=== PATIENT | male | born 1965 | race Hispanic/Latino ===

== ENCOUNTER 2016-08-10 11:18 | Emergency (ER) | payer MEDICARE, OTHER ==
--- NOTE | 2016-08-10 13:02 | C.PDOC ---
History Of Present Illness 51 Y/O MALE PRESENTS TO ED WHO REPORTS HE NOTICED HIS "MOUTH WAS CROOKED" YESTERDAY. PT STATES HE NOTICED WHEN DRINKING SODA. PT NOTES SYMPTOMS STILL PRESENT. DENIES OTHER NOTICEABLE WEAKNESS IN THE FACE. DENIES CHANGES IN SPEECH , NEW EXTREMITY WEAKNESS OR NUMBNESS, HEADACHE, VISUAL CHANGES, OR OTHER COMPLAINTS. Time Seen by Provider: 08/10/16 12:01 Chief Complaint (Nursing): Weakness/Neurological Deficit History Per: Patient History/Exam Limitations: no limitations Onset/Duration Of Symptoms: Days (1) Current Symptoms Are (Timing): Still Present Fall Associated With With Symptoms: No Recent travel outside of the [place]: No Past Medical History Reviewed: Historical Data, Nursing Documentation, Vital Signs Vital Signs: Last Vital Signs Temp 98.3 F 08/10/16 11:31 Pulse 87 08/10/16 12:08 Resp 19 08/10/16 12:08 BP 110/68 08/10/16 12:08 Pulse Ox 96 08/10/16 13:51 - Medical History PMH: Arthritis, Deep Vein Thrombosis, Gastritis, HTN, Hypercholesterolemia, Sleep Apnea - [facility] Procedures CLOSURE SKIN & SUBCUTANEOUS NEC (12/01/12) INJECT STEROID (03/29/14) INJECT/INFUSE NEC (03/29/14) INJECTION INTO JOINT (03/29/14) INSERTION OF INFUSION DEV INTO SUP VENA CAVA, PERC APPROACH (11/15/15) INTRODUCTION OF OTH THERAP SUBST INTO MUSCLE, PERC APPROACH (10/07/15) REPAIR ABDOMINAL WALL, EXTERNAL APPROACH (10/07/15) TRANSFUSE NONAUT FROZEN PLASMA IN PERIPH VEIN, PERC (10/07/15) TRANSFUSE NONAUT RED BLOOD CELLS IN PERIPH VEIN, PERC (10/07/15) Family History: States: Unknown Family Hx - Social History Hx Tobacco Use: No Hx Alcohol Use: No Hx Substance Use: No - Immunization History Hx Tetanus Toxoid Vaccination: No Hx Influenza Vaccination: Yes Hx Pneumococcal Vaccination: Yes Review Of Systems Except As Marked, All Systems Reviewed And Found Negative. Constitutional: Negative for: Fever, Chills Cardiovascular: Negative for: Chest Pain Respiratory: Negative for: Cough, Shortness of Breath Gastrointestinal: Negative for: Nausea, Vomiting, Abdominal Pain Skin: Negative for: Rash Neurological: Positive for: Weakness (LEFT SIDED FACE). Negative for: Headache , Dizziness Physical Exam - Physical Exam Appears: Non-toxic, No Acute Distress Skin: Warm, Dry Head: Atraumatic, Normacephalic Eye(s): bilateral: PERRL, EOMI Oral Mucosa: Moist Neck: Supple Chest: Symmetrical Cardiovascular: Rhythm Regular Respiratory: Normal Breath Sounds, No Rales, No Rhonchi, No Wheezing Gastrointestinal/Abdominal: Soft, No Tenderness Back: Normal Inspection Extremity: Normal ROM, Capillary Refill (< 2 SEC. ) Neurological/Psych: Oriented x3, Normal Speech, Other (MILD-MODERATE LEFT FACIAL WEAKNESS: LIMITED FULL CLOSER OF LEFT EYELID, MILD FLATTENING OF LEFT LOWER FACE. ) ED Course And Treatment O2 Sat by Pulse Oximetry: 96 (RA) Pulse Ox Interpretation: Normal - CT Scan/US CT HEAD Other Rad Studies (CT/US): Read By Radiologist, Radiology Report Reviewed CT/US Interpretation: FINDINGS: HEMORRHAGE: No intracranial hemorrhage. BRAIN : There is no mass, mass effect or abnormal extra-axial fluid collection. Hanna- white matter differentiation is preserved. There is normal density in the larger dural venous sinuses. VENTRICLES: There is mild age advanced global parenchymal volume loss and proportionate enlargement of the ventricles and cortical sulci. CALVARIUM: The skull base and calvarium are normal. PARANASAL SINUSES: There is mild mucosal thickening in the right ethmoid air cells and an old deformity in the right lamina papyracea. The remaining included paranasal sinuses are predominantly clear. MASTOID AIR CELLS: Predominantly clear. OTHER FINDINGS: None. IMPRESSION: No acute intracranial abnormality. If there is a persistent focal neurologic deficit and an ongoing clinical concern for acute infarction, an MRI of the brain without intravenous contrast would be a more sensitive modality for evaluation of hyperacute/acute ischemic infarction. Mild global parenchymal volume loss, slightly advanced for the patient's age. Progress - Re-Evaluation Re-evaluation Note: 08/10/16 13:02 CT HEAD ORDERED. 08/10/16 14:50 EXAM UNCH 08/10/16 14:50 PENDING PMD APPT /419 - Data Reviewed Data Reviewed: Diagnostic imaging, Old records Disposition Counseled Patient/Family Regarding: Studies Performed, Need For Followup, Rx Given - Disposition Referrals: YOUR,PMD [Other] Disposition: HOME/ ROUTINE Disposition Time: 14:50 Condition: GOOD Prescriptions: Valacyclovir HCl [Valtrex] 1,000 mg PO TID #21 tablet predniSONE [Prednisone] 60 mg PO DAILY #15 tab Instructions: Dotson Palsy (ED) - Clinical Impression Clinical Impression: Dotson palsy - Scribe Statement The provider has reviewed the documentation as recorded by the Bk Max Provider Scribe Attestation: All medical record entries made by the Scribe were at my direction and personally dictated by me. I have reviewed the chart and agree that the record accurately reflects my personal performance of the history, physical exam, medical decision making, and the department course for this patient. I have also personally directed, reviewed, and agree with the discharge instructions and disposition.
--- NOTE | 2016-08-10 13:39 | CT ---
PROCEDURE: CT HEAD WITHOUT CONTRAST. HISTORY: Left facial weakness for 1 day COMPARISON: None available. TECHNIQUE: Axial computed tomography images were obtained through the head/brain without intravenous contrast. Radiation dose: Total exam DLP = 87.58 mGy-cm. This CT exam was performed using one or more of the following dose reduction techniques: Automated exposure control, adjustment of the mA and/or kV according to patient size, and/or use of iterative reconstruction technique. FINDINGS: HEMORRHAGE: No intracranial hemorrhage. BRAIN: There is no mass, mass effect or abnormal extra-axial fluid collection. Hanna-white matter differentiation is preserved. There is normal density in the larger dural venous sinuses. VENTRICLES: There is mild age advanced global parenchymal volume loss and proportionate enlargement of the ventricles and cortical sulci. CALVARIUM: The skull base and calvarium are normal. PARANASAL SINUSES: There is mild mucosal thickening in the right ethmoid air cells and an old deformity in the right lamina papyracea. The remaining included paranasal sinuses are predominantly clear. MASTOID AIR CELLS: Predominantly clear. OTHER FINDINGS: None. IMPRESSION: No acute intracranial abnormality. If there is a persistent focal neurologic deficit and an ongoing clinical concern for acute infarction, an MRI of the brain without intravenous contrast would be a more sensitive modality for evaluation of hyperacute/acute ischemic infarction. Mild global parenchymal volume loss, slightly advanced for the patient's age.
[2016-08-10 14:55] VITALS: BP 104/68; PULSE 61; RESP 18; TEMP 97.5
[2016-08-10 15:19] VITALS: O2SAT 98
== END 2016-08-10 15:15 | disposition home or self-care (01) ==
LOC: C.ER 11:18
DX: G51.0 Bell's palsy (principal)

== ENCOUNTER 2016-08-28 17:10 | Inpatient (IN) | payer MEDICARE, OTHER ==
[2016-08-28] MEDS ORDERED: Aztreonam 2 GM in Sodium Chloride 0.9% 100 ML IVPB STA (18:25)
--- NOTE | 2016-08-28 18:40 | C.PDOC ---
History Of Present Illness 51 yr old male with PMHx of GERD, HTN, arthritis and DVT, presents to the ER with complaints of irritation to the groin area for the past 2-3 days. Patient follow up with Dr. Brown. Patient denies fever, chills, chest pain, SOB, nausea , vomiting, abdominal pain, diarrhea, dysuria, incontinence, weakness or numbness. Time Seen by Provider: 08/28/16 17:50 Chief Complaint (Nursing): Lower Extremity Problem/Injury History Per: Patient History/Exam Limitations: no limitations Onset/Duration Of Symptoms: Days (2-3 ) Past Medical History Reviewed: Historical Data, Nursing Documentation, Vital Signs Vital Signs: Last Vital Signs Temp 98.1 F 08/28/16 17:35 Pulse 91 H 08/28/16 17:35 Resp 20 08/28/16 17:35 BP 112/77 08/28/16 17:35 Pulse Ox 96 08/28/16 18:44 - Medical History PMH: Arthritis, Deep Vein Thrombosis, Gastritis, HTN, Hypercholesterolemia, Sleep Apnea - [facility] Procedures CLOSURE SKIN & SUBCUTANEOUS NEC (12/01/12) INJECT STEROID (03/29/14) INJECT/INFUSE NEC (03/29/14) INJECTION INTO JOINT (03/29/14) INSERTION OF INFUSION DEV INTO SUP VENA CAVA, PERC APPROACH (11/15/15) INTRODUCTION OF OTH THERAP SUBST INTO MUSCLE, PERC APPROACH (10/07/15) REPAIR ABDOMINAL WALL, EXTERNAL APPROACH (10/07/15) TRANSFUSE NONAUT FROZEN PLASMA IN PERIPH VEIN, PERC (10/07/15) TRANSFUSE NONAUT RED BLOOD CELLS IN PERIPH VEIN, PERC (10/07/15) Family History: States: No Known Family Hx - Social History Hx Tobacco Use: No Hx Alcohol Use: Yes Hx Substance Use: No - Immunization History Hx Tetanus Toxoid Vaccination: No Hx Influenza Vaccination: Yes Hx Pneumococcal Vaccination: Yes Review Of Systems Except As Marked, All Systems Reviewed And Found Negative. Constitutional: Negative for: Fever, Chills Cardiovascular: Negative for: Chest Pain Respiratory: Negative for: Shortness of Breath Gastrointestinal: Negative for: Nausea, Vomiting, Abdominal Pain, Diarrhea Genitourinary: Negative for: Dysuria, Incontinence Neurological: Negative for: Weakness, Numbness Physical Exam - Physical Exam Appears: Well, Non-toxic, No Acute Distress, Other (Morbidly obese ) Skin: Warm, Dry, No Rash Head: Atraumatic, Normacephalic Chest: Symmetrical, No Tenderness Cardiovascular: Rhythm Regular, No Murmur Respiratory: Normal Breath Sounds, No Rales, No Rhonchi, No Stridor, No Wheezing Gastrointestinal/Abdominal: Soft, No Tenderness, No Guarding, No Rebound, Other ((+) Under the pannus, redness, irritation, bulla, ozzing, warmth to the entire lower groin area and inbetween the thighs. ) Extremity: Normal ROM, Other (Cellulitis changes to the lower bilateral extremities with redness, pitting edema and warmth. ) Neurological/Psych: Oriented x3, Normal Speech, Normal Motor, Normal Sensation, Normal Reflexes ED Course And Treatment O2 Sat by Pulse Oximetry: 96 Medical Decision Making Medical Decision Making: PLAN: * CXR * EKG * VBG * CBC * Urinalysis * Azactam IVPB * Vancomycin IVPB * Sodium Chloride IV spoke with Dr. Brown, agrees with admission for IV antibiotics. Disposition Counseled Patient/Family Regarding: Studies Performed, Diagnosis, Need For Followup - Disposition Disposition: HOSPITALIZED Disposition Time: 18:51 Condition: GUARDED - Clinical Impression Clinical Impression: Cellulitis of abdominal wall, Ulcerated varicose veins of leg, Cellulitis, Obesity, Fungal rash of torso - Scribe Statement The provider has reviewed the documentation as recorded by the Bk Desir Provider Attestation: All medical record entries made by the Bk were at my direction and personally dictated by me. I have reviewed the chart and agree that the record accurately reflects my personal performance of the history, physical exam, medical decision making, and the department course for this patient. I have also personally directed, reviewed, and agree with the discharge instructions and disposition. Decision To Admit - Pt Status Changed To: Hospital Disposition Of: Inpatient - Admit Certification Admit to Inpatient:: After my assessment, the patient will require hospitalization for at least two midnights. This is because of the severity of symptoms shown, intensity of services needed, and/or the medical risk in this patient being treated as an outpatient. - InPatient: Physician Admission Certification: I certify that this patient requires 2 or more midnights of care for the following reason:: severe celulitis to abdominal wall, groin and legs. - . Bed Request Type: Regular Patient Diagnosis: Cellulitis of abdominal wall, Ulcerated varicose veins of leg, Cellulitis, Obesity, Fungal rash of torso
[2016-08-28 19:04] LABS: CHLORIDE 101 mmol/L (98-107); POTASSIUM 4.2 mmol/L (3.6-5.2); SODIUM 137 mmol/L (132-148)
[2016-08-28 19:06] LABS: ALB/GLOB RATIO 0.7 (1.0-2.1); ALKALINE PHOSPHATASE 67 U/L (38-126); AST/SGOT 18 U/L (17-59); BILIRUBIN,TOTAL 1.2 mg/dL (0.2-1.3); CARBON DIOXIDE 18 mmol/L (22-30); GFR AFRICAN-AMERICAN > 60; TOTAL PROTEIN 8.6 g/dL (6.3-8.3)
[2016-08-28 19:07] LABS: BLOOD UREA NITROGEN 16 mg/dL (9-20); CALCIUM 8.7 mg/dl (8.6-10.4); GLUCOSE,RANDOM 93 mg/dL (75-110)
[2016-08-28 19:08] LABS: ALT/SGPT < 6 U/L (21-72)
[2016-08-28 19:11] LABS: BASO # 0.1 K/uL (0.0-0.2); BASO % 0.8 % (0.0-2.0); EOS # 0.1 K/uL (0.0-0.7); EOS % 0.7 % (0.0-4.0); HEMATOCRIT 34.1 % (35.0-51.0); LYMPH # 1.3 K/uL (1.0-4.3); LYMPH % 9.8 % (20.0-40.0); MEAN CELL VOLUME 85.7 fL (80.0-94.0); MEAN CORPUSCULAR HGB CONC 33.8 g/dL (33.0-37.0); MEAN PLATELET VOLUME 7.4 fL (7.2-11.7); MONO # 1.2 K/uL (0.0-0.8); MONO % 8.8 % (0.0-10.0); PLATELET COUNT 409 K/uL (130-400); RED CELL DISTRIBUTION WIDTH 16.4 % (11.5-14.5); WHITE BLOOD COUNT 13.2 K/uL (4.8-10.8)
[2016-08-28 19:14] LABS: VENOUS BLOOD GAS BASE EXCESS -0.8 mmol/L (0.0-2.0); VENOUS BLOOD GAS PCO2 41 mmHg (40-60); VENOUS BLOOD PH 7.38 (7.32-7.43)
[2016-08-28 20:03] LABS: NEUTROPHIL 81 % (50-75); TOTAL CELLS COUNTED 100
[2016-08-28 20:04] LABS: LARGE PLATELETS PRESENT
[2016-08-28 20:07] LABS: RBC URINE 21 /hpf (0-3); URINE BILIRUBIN NEGATIVE (NEGATIVE); URINE BLOOD 1+ (NEGATIVE); URINE COLOR Amber (YELLOW); URINE GLUCOSE (UA) NORMAL (Normal); URINE HYALINE CAST 0-2 /lpf (0-2); URINE KETONE NEGATIVE (NEGATIVE); URINE LEUKOCYTE ESTERASE NEG Leu/uL (Negative); URINE PROTEIN 1+ mg/dL (NEGATIVE); WBC URINE 6 /hpf (0-5)
--- NOTE | 2016-08-29 09:58 | RAD ---
HISTORY: Sepsis Patient COMPARISON: 06/11/2016 FINDINGS: LUNGS: Moderate venous congestion. Right hilar prominence. PLEURA: No significant pleural effusion identified, no pneumothorax apparent. CARDIOVASCULAR: Cardiomegaly. OSSEOUS STRUCTURES: No significant abnormalities. VISUALIZED UPPER ABDOMEN: Normal. OTHER FINDINGS: None. IMPRESSION: Moderate venous congestion. Right hilar prominence.
[2016-08-29] MEDS ORDERED: Ferrous Fum/Folic Acid/IF/VI 1 Cap PO SCH (10:00)
[2016-08-29] MEDS: Enoxaparin 30 mg Syringe SC SCH ×2 (10:10→21:58)
[2016-08-29 12:59] LABS: HEMATOCRIT 32.1 % (35.0-51.0); MEAN CELL VOLUME 86.2 fL (80.0-94.0); MEAN CORPUSCULAR HEMOGLOBIN 28.8 pg (27.0-31.0); MEAN CORPUSCULAR HGB CONC 33.4 g/dL (33.0-37.0); MEAN PLATELET VOLUME 7.8 fL (7.2-11.7); RED CELL DISTRIBUTION WIDTH 16.2 % (11.5-14.5); WHITE BLOOD COUNT 8.7 K/uL (4.8-10.8)
--- NOTE | 2016-08-29 12:59 | CP.PCM.CON ---
History of Present Illness - History of Present Illness History of Present Illness: 51 yr old male with PMHx of GERD, HTN, arthritis and DVT, presents to the ER with complaints of irritation to the groin area for the past 2-3 days. Patient follow up with Dr. Brown. Patient denies fever, chills, chest pain, SOB, nausea , vomiting, abdominal pain, diarrhea, dysuria, incontinence, weakness or numbness. started IV Vanco cultures pending T - Medical History PMH: Arthritis, Deep Vein Thrombosis, Gastritis, HTN, Hypercholesterolemia, Sleep Apnea - [facility] Procedures CLOSURE SKIN & SUBCUTANEOUS NEC (12/01/12) INJECT STEROID (03/29/14) INJECT/INFUSE NEC (03/29/14) INJECTION INTO JOINT (03/29/14) INSERTION OF INFUSION DEV INTO SUP VENA CAVA, PERC APPROACH (11/15/15) INTRODUCTION OF OTH THERAP SUBST INTO MUSCLE, PERC APPROACH (10/07/15) REPAIR ABDOMINAL WALL, EXTERNAL APPROACH (10/07/15) TRANSFUSE NONAUT FROZEN PLASMA IN PERIPH VEIN, PERC (10/07/15) TRANSFUSE NONAUT RED BLOOD CELLS IN PERIPH VEIN, PERC (10/07/15) Review of Systems - Constitutional Constitutional: As Per HPI - EENT Eyes: absent: As Per HPI, Blind Spots, Blurred Vision, Change in Vision, Decreased Night Vision, Diplopia, Discharge, Dry Eye, Exophthalmos, Floaters, Irritation, Itchy Eyes, Loss of Peripheral Vision, Pain, Photophobia, Requires Corrective Lenses, Sees Flashes, Spots in Vision, Tunnel Vision, Other Visual Disturbances, Loss of Vision, Other Ears: absent: As Per HPI, Decreased Hearing, Ear Discharge, Ear Pain, Tinnitus, Abnormal Hearing, Disequilibrium, Dizziness, Other Nose/Mouth/Throat: absent: As Per HPI, Epistaxis, Nasal Congestion, Nasal Discharge, Nasal Obstruction, Nasal Trauma, Nose Pain, Post Nasal Drip, Sinus Pain, Sinus Pressure, Bleeding Gums, Change in Voice, Dental Pain, Dry Mouth, Dysphagia, Halitosis, Hoarsness, Lip Swelling, Mouth Lesions, Mouth Pain, Odynophagia, Sore Throat, Throat Swelling, Tongue Swelling, Facial Pain, Neck Pain, Neck Mass, Other - Cardiovascular Cardiovascular: absent: As Per HPI, Acrocyanosis, Chest Pain, Chest Pain at Rest , Chest Pain with Activity, Claudication, Diaphoresis, Dyspnea, Dyspnea on Exertion, Edema, Irregular Heart Rhythm, Pain Radiating to Arm/Neck/Jaw, Leg Edema, Leg Ulcers, Lightheadedness, Orthopnea, Palpitations, Paroxysmal Nocturnal Dyspnea, Pedal Edema, Radiating Pain, Rapid Heart Rate, Slow Heart Rate, Syncope, Other - Respiratory Respiratory: As Per HPI - Gastrointestinal Gastrointestinal: absent: As Per HPI, Abdominal Pain, Belching, Bloating, Change in Bowel Habits, Change in Stool Character, Coffee Ground Emesis, Constipation, Cramping, Diarrhea, Dyspepsia, Dysphagia, Early Satiety, Excessive Flatus, Fecal Incontinence, Heartburn, Hematemesis, Hematochezia, Loose Stools, Melena, Nausea, Odynophagia, Temesmus, Vomiting, Other - Genitourinary Genitourinary: absent: As Per HPI, Change in Urinary Stream, Difficulty Urinating, Dysuria, Flank Pain, Hematuria, Pyuria, Nocturia, Urinary Incontinence, Urinary Frequency, Urinary Hesitance, Urinary Urgency, Voiding Freq/Small Amts, Freq UTI, Hx Renal/Bladder Calculi, Hx /Renal Surgery, Bladder Distension, Other - Musculoskeletal Musculoskeletal: absent: As Per HPI, Abnormal Gait, Arthralgias, Atrophy, Back Pain, Deformity, Joint Swelling, Limited Range of Motion, Loss of Height, Muscle Cramps, Muscle Weakness, Myalgias, Neck Pain, Numbness, Radiating Pain into Limb, Stiffness, Tingling, Other - Integumentary Integumentary: As Per HPI, Pruritus, Rash, Skin Pain, Wounds - Neurological Neurological: absent: As Per HPI, Abnormal Gait, Abnormal Hearing, Abnormal Movements, Abnormal Speech, Behavioral Changes, Burning Sensations, Confusion, Convulsions, Disequilibrium, Dizziness, Numbness, Focal Weakness, Frequent Falls , Headaches, Lack of Coordination, Loss of Vision, Memory Loss, Paresthesias, Radicular Pain, Restless Legs, Sensory Deficit, Syncope, Tingling, Tremor, Vertigo, Weakness, Other Visual Disturbances, Other - Psychiatric Psychiatric: absent: As Per HPI, Abnormal Sleep Pattern, Anhedonia, Anxiety, Auditory Hallucinations, Behavioral Changes, Change in Appetite, Change in Libido, Confusion, Depression, Difficulty Concentrating, Hallucinations, Homicidal Ideation, Hopelessness, Irritability, Memory Loss, Mood Swings, Panic Attacks, Paranoia, Suicidal Ideation, Visual Hallucinations, Tactile Hallucinations, Other - Endocrine Endocrine: absent: As Per HPI, Change in Body Appearance, Change in Libido, Cold Intolorance, Deepening of Voice, Excessive Sweating, Fatigue, Flushing, Heat Intolorance, Increase in Ring/Shoe/Hat Size, Palpitations, Polydipsia, Polyphagia, Polyuria, Other - Hematologic/Lymphatic Hematologic: absent: As Per HPI, Easy Bleeding, Easy Bruising, Lymphadenopathy, Other Past Patient History - Infectious Disease Hx of Infectious Diseases: MRSA - Tetanus Immunizations Tetanus Immunization: Up to Date - Past Medical History & Family History Past Medical History?: Yes - Past Social History Smoking Status: Never Smoked - CARDIAC Hx Hypercholesterolemia: Yes Hx Hypertension: Yes - PULMONARY Hx Sleep Apnea: Yes - NEUROLOGICAL Hx Neurological Disorder: No - HEENT Hx HEENT Problems: No - RENAL Hx Chronic Kidney Disease: No - ENDOCRINE/METABOLIC Hx Endocrine Disorders: No - HEMATOLOGICAL/ONCOLOGICAL Hx Blood Disorders: No - INTEGUMENTARY Hx Dermatological Problems: No - MUSCULOSKELETAL/RHEUMATOLOGICAL Hx Arthritis: Yes Hx Falls: Yes - GASTROINTESTINAL Hx Gastritis: Yes - GENITOURINARY/GYNECOLOGICAL Hx Genitourinary Disorders: No - PSYCHIATRIC Hx Substance Use: No - SURGICAL HISTORY Hx Surgeries: Yes Hx Herniorrhaphy: Yes (2010) Hx Vascular Surgery: Yes Other/Comment: Vena Cava Filter on R groin for DVT L Leg in 2009. Mar 2015 R leg clot. 2009 L leg clot - ANESTHESIA Hx Anesthesia: Yes Hx Anesthesia Reactions: No Hx Malignant Hyperthermia: No Meds Allergies/Adverse Reactions: Allergies Allergy/AdvReac Type Severity Reaction Status Date / Time penicillin V Allergy Severe ANAPHYLAXIS Verified 08/28/16 17:38 - Medications Medications: Current Medications Allopurinol (Zyloprim) [address] [facility] Last Admin: 08/29/16 10:10 Dose: 100 mg Cyclobenzaprine HCl (Flexeril) [address] [facility] Last Admin: 08/29/16 10:10 Dose: 10 mg Enoxaparin Sodium (Lovenox) [address] [facility] Last Admin: 08/29/16 10:10 Dose: 30 mg Ferrous Gluconate (Fergon) [address] [facility] Last Admin: 08/29/16 11:43 Dose: 324 mg Fluocinonide (Lidex 0.05% Cream) [address] [facility] Last Admin: 08/29/16 11:50 Dose: 1 appl Vancomycin HCl 1,000 mg/ (Sodium Chloride) 250 mls @ 166.6 mls/hr IVPB Q12H [facility] Last Admin: 08/29/16 09:46 Dose: 166.6 mls/hr Ibuprofen (Motrin Tab) [address] [facility] Last Admin: 08/29/16 11:43 Dose: 600 mg Physical Exam - Constitutional Appears: Non-toxic, Chronically Ill - Head Exam Head Exam: NORMOCEPHALIC - Eye Exam Eye Exam: PERRL. absent: Scleral icterus - ENT Exam ENT Exam: Mucous Membranes Dry - Neck Exam Neck exam: Negative for: Lymphadenopathy, Thyromegaly - Respiratory Exam Respiratory Exam: Decreased Breath Sounds, Rhonchi - Cardiovascular Exam Cardiovascular Exam: REGULAR RHYTHM, +S1, +S2 - GI/Abdominal Exam GI & Abdominal Exam: Diminished Bowel Sounds, Soft. absent: Tenderness - Rectal Exam Rectal Exam: Deferred - Exam Exam: NORMAL INSPECTION - Extremities Exam Extremities exam: Negative for: calf tenderness, pedal edema - Back Exam Back exam: absent: CVA tenderness (L), CVA tenderness (R) - Neurological Exam Neurological exam: Alert, CN II-XII Intact, Oriented x3, Reflexes Normal - Psychiatric Exam Psychiatric exam: Normal Mood - Skin Skin Exam: Dry Results - Vital Signs Recent Vital Signs: Last Vital Signs Temp 97.3 F L 08/29/16 07:00 Pulse 77 08/29/16 07:00 Resp 20 08/29/16 07:00 BP 111/73 08/29/16 07:00 Pulse Ox 95 08/29/16 07:00 - Labs Result Diagrams: 08/28/16 18:52 08/28/16 18:52 Labs: Laboratory Results - last 24 hr 08/28/16 08/28/16 19:00 20:01 pO2 61 H VBG pH 7.38 VBG pCO2 41 VBG HCO3 24.1 VBG Total CO2 25.6 VBG O2 Sat (Calc) 94.9 H VBG Base Excess -0.8 L VBG Potassium 4.7 Sodium 137.0 Chloride 109.0 H Glucose 85 Lactate 1.1 Venous Blood Potassium 4.7 Urine Color Nicol Urine Clarity Clear Urine pH 5.0 Ur Specific [place] 1.021 Urine Protein 1+ H Urine Glucose (UA) Normal Urine Ketones Negative Urine Blood 1+ H Urine Nitrate Negative Urine Bilirubin Negative Urine Urobilinogen 2.0 Ur Leukocyte Esterase Neg Urine WBC (Auto) 6 H Urine RBC (Auto) 21 H Ur Squamous Epith Cells < 1 Hyaline Casts 0-2 Assessment & Plan (1) Cellulitis Status: Acute (2) Cellulitis of abdominal wall Status: Acute (3) Fungal rash of torso Status: Acute Priority: Medium (4) Obesity Status: Chronic Priority: Medium - Assessment and Plan (Free Text) Assessment: iv vanco ordered
[2016-08-29 13:17] LABS: CHLORIDE 101 mmol/L (98-107); POTASSIUM 3.9 mmol/L (3.6-5.2); SODIUM 138 mmol/L (132-148)
[2016-08-29 13:19] LABS: BILIRUBIN,TOTAL 0.6 mg/dL (0.2-1.3); GFR AFRICAN-AMERICAN > 60
[2016-08-29 13:20] LABS: ALB/GLOB RATIO 0.8 (1.0-2.1); ALKALINE PHOSPHATASE 59 U/L (38-126); ALT/SGPT < 6 U/L (21-72); AST/SGOT 11 U/L (17-59); BLOOD UREA NITROGEN 12 mg/dL (9-20); CALCIUM 8.5 mg/dl (8.6-10.4); CARBON DIOXIDE 23 mmol/L (22-30); GLUCOSE,RANDOM 108 mg/dL (75-110); TOTAL PROTEIN 7.6 g/dL (6.3-8.3)
[2016-08-29 13:22] LABS: ABG ALLEN TEST PO; ARTERIAL BLOOD HGB O2 SAT 95.7 % (95.0-98.0); DRAW SITE RR; HHB 1.1 % (0.0-5.0); METHEMOGLOBIN 1.3 % (0.0-3.0)
--- NOTE | 2016-08-29 14:04 | CON ---
DATE: 08/29/2016 Thank you for asking me to see this 51-year-old patient on pulmonary consultation. 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 He was admitted to the hospital at various times; at one time he was admitted with bleeding considered to be from warfarin which he was taking. This medication was stopped and the patient was also seen by the vascular surgeon. All the details of history, physical examination, laboratory data are available dictated and I have also written details on the consult sheet and all the details of the history and physical examination and lab data including the impression and recommendation have been detailed on the consult sheet. Please see the consult sheet for further information. The patient has not been taking warfarin. His current medications have been ferrous gluconate, cyclobenzaprine. He is on prophylactic Lovenox. He is on continuous oxygen and we will repeat ABGs and venous Doppler of legs and continue with the current measures. Sudarshan Delong MD cc: [id number] TT: 08/29/2016 14:03:37 Confirmation # [id number] Dictation # [id number] an MARY ANN
[2016-08-29] MEDS: Aztreonam 1 GM in Sodium Chloride 0.9% 100 ML IVPB SCH ×2 (15:41→21:57)
--- NOTE | 2016-08-29 22:32 | CP.PCM.HP ---
History of Present Illness - History of Present Illness History of Present Illness: 51 year old male who presents himself at the [facility] ER with severe irritation to the groin area, abdominal wall, and both lower extremities. Patient has a previous history of recurrent DVTs, degenerative joint disease, hypertension and pulmonary embolism. Present on Admission - Present on Admission Any Indicators Present on Admission: Yes History of DVT/PE: Yes History of Uncontrolled Diabetes: No Urinary Catheter: No Decubitus Ulcer Present: No History Surgical Site Infection Following: None Review of Systems - Constitutional Constitutional: Sleep Apnea - Cardiovascular Cardiovascular: Dyspnea - Respiratory Respiratory: Dyspnea on Exertion - Gastrointestinal Gastrointestinal: Bloating - Musculoskeletal Musculoskeletal: Arthralgias - Integumentary Integumentary: Rash Past Patient History - Infectious Disease Hx of Infectious Diseases: MRSA - Tetanus Immunizations Tetanus Immunization: Up to Date - Past Medical History & Family History Past Medical History?: Yes - Past Social History Smoking Status: Never Smoked Chewing Tobacco Use: No Cigar Use: No Alcohol: Occasional Drugs: Denies Home Situation {Lives}: With Family - CARDIAC Hx Hypercholesterolemia: Yes Hx Hypertension: Yes Hx Peripheral Edema: Yes - PULMONARY Hx Sleep Apnea: Yes - NEUROLOGICAL Hx Neurological Disorder: No - HEENT Hx HEENT Problems: No - RENAL Hx Chronic Kidney Disease: No - ENDOCRINE/METABOLIC Hx Endocrine Disorders: No - HEMATOLOGICAL/ONCOLOGICAL Hx Blood Disorders: No - INTEGUMENTARY Hx Dermatological Problems: No - MUSCULOSKELETAL/RHEUMATOLOGICAL Hx Arthritis: Yes Hx Falls: Yes Hx Gout: Yes Hx Osteoarthritis: Yes - GASTROINTESTINAL Hx Gastritis: Yes - GENITOURINARY/GYNECOLOGICAL Hx Genitourinary Disorders: No - PSYCHIATRIC Hx Substance Use: No - SURGICAL HISTORY Hx Surgeries: Yes Hx Herniorrhaphy: Yes (2010) Hx Vascular Surgery: Yes Other/Comment: Vena Cava Filter on R groin for DVT L Leg in 2009. Mar 2015 R leg clot. 2009 L leg clot - ANESTHESIA Hx Anesthesia: Yes Hx Anesthesia Reactions: No Hx Malignant Hyperthermia: No Meds Allergies/Adverse Reactions: Allergies Allergy/AdvReac Type Severity Reaction Status Date / Time penicillin V Allergy Severe ANAPHYLAXIS Verified 08/28/16 17:38 Physical Exam - Constitutional Appears: No Acute Distress - Head Exam Head Exam: ATRAUMATIC - Eye Exam Eye Exam: Normal appearance Pupil Exam: NORMAL ACCOMODATION - ENT Exam ENT Exam: Normal Exam - Neck Exam Neck exam: Positive for: Normal Inspection - Respiratory Exam Respiratory Exam: Decreased Breath Sounds - Cardiovascular Exam Cardiovascular Exam: REGULAR RHYTHM - GI/Abdominal Exam GI & Abdominal Exam: Normal Bowel Sounds - Rectal Exam Rectal Exam: Deferred - Exam Exam: NORMAL INSPECTION - Extremities Exam Extremities exam: Positive for: pedal edema - Back Exam Back exam: NORMAL INSPECTION - Neurological Exam Neurological exam: Oriented x3 - Psychiatric Exam Psychiatric exam: Anxious - Skin Skin Exam: Erythema Results - Vital Signs Recent Vital Signs: Last Vital Signs Temp 97.7 F 08/29/16 15:15 Pulse 65 08/29/16 15:15 Resp 18 08/29/16 15:15 BP 104/70 08/29/16 15:15 Pulse Ox 96 08/29/16 15:15 - Labs Result Diagrams: 08/29/16 12:40 08/29/16 12:40 Labs: Laboratory Results - last 24 hr 08/29/16 08/29/16 08/29/16 12:40 12:40 13:19 WBC 8.7 RBC 3.72 L Hgb 10.7 L Hct 32.1 L MCV 86.2 MCH 28.8 MCHC 33.4 RDW 16.2 H Plt Count 388 MPV 7.8 D-Dimer, Quantitative Puncture Site Rr pCO2 32 L pO2 91 HCO3 24.0 ABG pH 7.45 ABG Total CO2 23.2 ABG O2 Saturation 98.9 H ABG Base Excess -1.2 ABG Hemoglobin 11.6 L ABG Carboxyhemoglobin 2.0 H POC ABG HHb (Measured) 1.1 ABG Methemoglobin 1.3 Rajan Test Po A-a O2 Difference 19.0 Respiratory Index 0.2 Hgb O2 Saturation 95.7 FiO2 21.0 Sodium 138 Potassium 3.9 Chloride 101 Carbon Dioxide 23 Anion Gap 18 BUN 12 Creatinine 0.9 Est GFR ( Amer) > 60 Est GFR (Non-Af Amer) > 60 POC Glucose (mg/dL) Random Glucose 108 Calcium 8.5 L Total Bilirubin 0.6 AST 11 L D ALT < 6 L Alkaline Phosphatase 59 Total Protein 7.6 Albumin 3.3 L Globulin 4.3 H Albumin/Globulin Ratio 0.8 L 08/29/16 08/29/16 08/29/16 14:17 16:34 21:42 WBC RBC Hgb Hct MCV MCH MCHC RDW Plt Count MPV D-Dimer, Quantitative > 5250 H Puncture Site pCO2 pO2 HCO3 ABG pH ABG Total CO2 ABG O2 Saturation ABG Base Excess ABG Hemoglobin ABG Carboxyhemoglobin POC ABG HHb (Measured) ABG Methemoglobin Rajan Test A-a O2 Difference Respiratory Index Hgb O2 Saturation FiO2 Sodium Potassium Chloride Carbon Dioxide Anion Gap BUN Creatinine Est GFR ( Amer) Est GFR (Non-Af Amer) POC Glucose (mg/dL) 101 107 Random Glucose Calcium Total Bilirubin AST ALT Alkaline Phosphatase Total Protein Albumin Globulin Albumin/Globulin Ratio Assessment & Plan (1) Congestive heart failure due to high blood pressure Status: Acute (2) Degenerative joint disease Status: Acute (3) Cellulitis Status: Acute (4) Cellulitis of abdominal wall Status: Acute (5) Fungal rash of torso Status: Acute Priority: Medium (6) Obesity Status: Chronic Priority: Medium
[2016-08-30] MEDS: Aztreonam 1 GM in Sodium Chloride 0.9% 100 ML IVPB SCH ×3 (04:30→20:36)
--- NOTE | 2016-08-30 09:09 | RAD ---
PROCEDURE: CHEST RADIOGRAPH, 1 VIEW HISTORY: Congestive heart failure COMPARISON: 08/28/2016 FINDINGS: LUNGS: Mild venous congestion. PLEURA: No pneumothorax or pleural fluid seen. CARDIOVASCULAR: Mild cardiomegaly. OSSEOUS STRUCTURES: No significant abnormalities. VISUALIZED UPPER ABDOMEN: Normal. OTHER FINDINGS: None. IMPRESSION: Mild venous congestion.
--- NOTE | 2016-08-30 12:03 | PN ---
DATE: 08/30/2016 PHYSICAL EXAMINATION: GENERAL: The patient is alert, oriented. VITAL SIGNS: Afebrile with pulse rate of 62 per minute, respirations 20, blood pressure 114/82, hemo globin oxygen saturation of 97% on room air. He is not in distress. There is no dyspnea. No chest pain. His rash is subsiding. HEART: Regular. No gallop rhythm. LUNGS: Diminished breath sounds over lung bases. No rhonchi. ABDOMEN: Soft. LEGS: Leg edema subsiding. Osteoarthritic changes in the knees noticed. LABORATORY DATA: His white count is 8700, hemoglobin 10.7, platelet count 388,000. D-dimer is raise d to 5250. His blood glucose is 108, sodium 138, potassium 3.9, BUN 12, creatinine 0.9, albumin is 3 .3. His arterial blood gas studies done on room air show pH of 7.45, pCO2 of 32 and pO2 of 91 with b icarbonate of 24, hemoglobin oxygen saturation of 99%. Chest x-ray portable film done today is clearer than the previous film and it remains a poor inspirat ory film with no obvious infiltrates seen. His venous Doppler legs studies showed the abnormal findings from the current study which showed pers istence of old abnormality in femoral and popliteal veins. IMPRESSION: Respiratory insufficiency, hypertensive cardiovascular disease, obesity, osteoarthritis, gout and sepsis. The patient was seen by infectious disease consult and is being treated with IV va ncomycin. PLAN: To continue with the current management. In view of assessment findings in the leg venous Dop pler and currently raised D-dimer, will do CT angio of the chest to rule out pulmonary embolization. The patient has had implantation of an IVC filter on his previous admissions. The patient will cont inue with the current regimen and ID followup. He remains on Lovenox currently. Sudarshan Delong MD cc: [id number] TT: 08/30/2016 12:01:59 Confirmation # [id number] Dictation # [id number] [email or web address]
[2016-08-30] MEDS: Enoxaparin 30 mg Syringe SC SCH ×2 (12:28→21:25)
--- NOTE | 2016-08-30 12:59 | CP.PCM.PN ---
Subjective - Date & Time of Evaluation Date of Evaluation: 08/30/16 Time of Evaluation: 07:00 - Subjective Subjective: cellulitis improving cultures neg thus far Objective - Vital Signs/Intake and Output Vital Signs (last 24 hours): Temp Pulse Resp BP Pulse Ox 97.3 F L 63 20 115/83 97 08/30/16 08:09 08/30/16 08:09 08/30/16 08:09 08/30/16 08:09 08/30/16 08:09 Intake and Output: 08/30/16 08/30/16 06:59 18:59 Intake Total 1050 Balance 1050 - Medications Medications: Current Medications Allopurinol (Zyloprim) 100 mg PO DAILY [facility] Last Admin: 08/30/16 12:28 Dose: 100 mg Cyclobenzaprine HCl (Flexeril) 10 mg PO TID [facility] Last Admin: 08/30/16 12:28 Dose: 10 mg Enoxaparin Sodium (Lovenox) 30 mg SC Q12 [facility] Last Admin: 08/30/16 12:28 Dose: 30 mg Ferrous Gluconate (Fergon) 324 mg PO TIDCC [facility] Last Admin: 08/30/16 09:44 Dose: 324 mg Fluocinonide (Lidex 0.05% Cream) 15 gm TOP BID [facility] Last Admin: 08/30/16 12:28 Dose: 1 appl Vancomycin HCl 1,000 mg/ (Sodium Chloride) 250 mls @ 166.6 mls/hr IVPB Q12H [facility] Last Admin: 08/30/16 12:30 Dose: Not Given Aztreonam 1 gm/ Sodium (Chloride) 100 mls @ 100 mls/hr IVPB Q8H [facility] Last Admin: 08/30/16 04:30 Dose: 100 mls/hr Ibuprofen (Motrin Tab) 600 mg PO TIDCC [facility] Last Admin: 08/30/16 09:44 Dose: 600 mg Ketoconazole (Nizoral) 0 gm TOP BID [facility] Last Admin: 08/30/16 12:26 Dose: 1 appl - Labs Labs: 08/29/16 12:40 08/29/16 12:40 - Constitutional Appears: Non-toxic, Chronically Ill - Head Exam Head Exam: NORMOCEPHALIC - Eye Exam Eye Exam: PERRL. absent: Scleral icterus - ENT Exam ENT Exam: Mucous Membranes Dry - Neck Exam Neck Exam: absent: Lymphadenopathy - Respiratory Exam Respiratory Exam: Decreased Breath Sounds, Rhonchi - Cardiovascular Exam Cardiovascular Exam: REGULAR RHYTHM, +S1, +S2 - GI/Abdominal Exam GI & Abdominal Exam: Distended, Soft. absent: Tenderness - Rectal Exam Rectal Exam: Deferred - Exam Exam: NORMAL INSPECTION Assessment and Plan (1) Cellulitis Status: Acute (2) Cellulitis of abdominal wall Status: Acute (3) Fungal rash of torso Status: Acute (4) Obesity Status: Chronic
--- NOTE | 2016-08-30 13:58 | VASCLAB ---
PROCEDURE: Lower Extremity Venous Duplex Exam. HISTORY: Leg swelling PRIORS: None. TECHNIQUE: Bilateral common femoral, femoral, popliteal and posterior tibial, peroneal and great saphenous veins were evaluated. Flow was assessed with color Doppler, compressibility, assessment of phasic flow and augmentation response. Report prepared by SHEILA Garcia, RVT FINDINGS: RIGHT: 1. Common Femoral Vein: 1.1. Compressibility - Partial: Thrombus - Chronic : Flow - Reduced : Augmentation -Reduced: Reflux - None. 2. Femoral Vein: 2.1. Compressibility - Partial: Thrombus - Chronic : Flow - Reduced : Augmentation -Reduced: Reflux - None. 3. Popliteal Vein: 3.1. Compressibility - Partial: Thrombus - Chronic : Flow - Reduced : Augmentation -Reduced: Reflux - None. 4. Posterior Tibial Vein: 4.1. Compressibility - Fully compressible: Thrombus - None: Flow - Phasic: Augmentation -Normal: Reflux - None. 5. Peroneal Vein: 5.1. Compressibility - Fully compressible: Thrombus - None: Flow - Phasic: Augmentation -Normal: Reflux - None. 6. Great Saphenous Vein: 6.1. Compressibility - Fully compressible: Thrombus - None: Flow - Phasic: Augmentation - Normal: Reflux - None. LEFT: 1. Common Femoral Vein: 1.1. Compressibility - Partial: Thrombus - Chronic: Flow - Reduced : Augmentation -Reduced: Reflux - None. 2. Femoral Vein: 2.1. Compressibility - Partial: Thrombus - Chronic: Flow - Reduced : Augmentation -Reduced: Reflux - None. 3. Popliteal Vein: 3.1. Compressibility - Partial: Thrombus - Chronic : Flow - Reduced : Augmentation -Reduced: Reflux - None. 4. Posterior Tibial Vein: 4.1. Compressibility - Fully compressible: Thrombus - None: Flow - Phasic: Augmentation -Normal: Reflux - None. 5. Peroneal Vein: 5.1. Compressibility - Fully compressible: Thrombus - None: Flow - Phasic: Augmentation -Normal: Reflux - None. 6. Great Saphenous Vein: 6.1. Compressibility - Fully compressible: Thrombus - None: Flow - Phasic: Augmentation - Normal: Reflux - None. OTHER FINDINGS: There is no significant change compared to last study of 06/13/16. 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 Left: Chronic thrombosis of the left common femoral, femoral and popliteal veins with mild reduction of the venous return.
--- NOTE | 2016-08-30 14:01 | CARD ---
APPROVED REPORT EKG Measurement Heart [id number] AK [id number] <Conclusion> Normal sinus rhythm Possible Left atrial enlargement Left ventricular hypertrophy Abnormal ECG
[2016-08-30] MEDS ORDERED: Iodixanol 320 MG/ML 100 ML BOTTLE IV ONE (14:03)
--- NOTE | 2016-08-30 14:39 | CT ---
CT chest with IV contrast Indication: R/O PE. Pt. with dvt, raised D-Dimer. Hx of IVC Fi Technique: Contiguous axial images were obtained through the chest with intravenous contrast enhancement. Sagittal and coronal reconstructions were generated and reviewed. This CT exam was performed using 1 or more of the falling dose reduction techniques: Automated exposure control, adjustment of the MAA and/or kV according to patient size, and/or use of iterative reconstruction technique. IV Contrast: 100 mL Visipaque Radiation dose (DLP): 533.23 MGy-cm. Comparison: Chest x-ray performed 08/30/16 Findings: Visualized portions of the inferior thyroid gland appear unremarkable. The mediastinal and hilar vascular structures appear within normal limits. The heart appears within normal limits of size. Coronary artery calcifications. No large central or segmental pulmonary embolus evident. No focal consolidation. No pleural effusion. No pneumothorax. No suspicious pulmonary nodules measuring greater than 5 mm. Limited visualization of the upper abdomen demonstrates probable gas containing gallstones; correlate with right upper quadrant ultrasound. Partially imaged subcutaneous varices. Degenerative changes of the spine. Impression: No large central or segmental pulmonary embolus identified.
[2016-08-30 14:56] LABS: CCP IGG <16 Units (<20)
--- NOTE | 2016-08-30 19:18 | CP.PCM.PN ---
Subjective - Date & Time of Evaluation Date of Evaluation: 08/30/16 Time of Evaluation: 19:13 - Subjective Subjective: 51 yo male hospitalized for a cellulitis of the lower extremities. He is known to have a GERD, HPTN, chronic DVT pf the legs, s/p PE with an IVC filter insertion in 2009. This time denies any SOB, chest pain. A CXR reveals mild venous congestion. A CTA of the chest did not reveal any pulmonary embolism. A venous scan of the legs discloses chronic DVT. An echocardiogram in 05/2015 revealed normal LV systolic function and a mild pulmonary hypertension. Objective - Vital Signs/Intake and Output Vital Signs (last 24 hours): Temp Pulse Resp BP Pulse Ox 97.3 F L 70 18 120/72 95 08/30/16 15:39 08/30/16 15:39 08/30/16 15:39 08/30/16 15:39 08/30/16 15:39 - Medications Medications: Current Medications Allopurinol (Zyloprim) 100 mg PO DAILY [facility] Last Admin: 08/30/16 12:28 Dose: 100 mg Cyclobenzaprine HCl (Flexeril) 10 mg PO TID [facility] Last Admin: 08/30/16 18:48 Dose: 10 mg Enoxaparin Sodium (Lovenox) 30 mg SC Q12 [facility] Last Admin: 08/30/16 12:28 Dose: 30 mg Ferrous Gluconate (Fergon) 324 mg PO TIDCC [facility] Last Admin: 08/30/16 18:49 Dose: 324 mg Fluocinonide (Lidex 0.05% Cream) 15 gm TOP BID [facility] Last Admin: 08/30/16 18:49 Dose: 1 appl Vancomycin HCl 1,000 mg/ (Sodium Chloride) 250 mls @ 166.6 mls/hr IVPB Q12H [facility] Last Admin: 08/30/16 12:30 Dose: Not Given Aztreonam 1 gm/ Sodium (Chloride) 100 mls @ 100 mls/hr IVPB Q8H [facility] Last Admin: 08/30/16 13:30 Dose: Not Given Ibuprofen (Motrin Tab) 600 mg PO TIDCC [facility] Last Admin: 08/30/16 18:48 Dose: 600 mg Ketoconazole (Nizoral) 0 gm TOP BID [facility] Last Admin: 08/30/16 18:49 Dose: 1 appl - Labs Labs: 08/29/16 12:40 08/29/16 12:40 - Constitutional Appears: No Acute Distress, Chronically Ill - Head Exam Head Exam: NORMAL INSPECTION - Eye Exam Eye Exam: Normal appearance - ENT Exam ENT Exam: Normal Exam - Neck Exam Neck Exam: Normal Inspection - Respiratory Exam Respiratory Exam: Clear to Ausculation Bilateral, NORMAL BREATHING PATTERN - Cardiovascular Exam Cardiovascular Exam: REGULAR RHYTHM - GI/Abdominal Exam GI & Abdominal Exam: Soft, Normal Bowel Sounds - Rectal Exam Rectal Exam: Deferred - Exam Exam: NORMAL INSPECTION - Extremities Exam Additional comments: Cellulitis of the lower extremities. - Back Exam Back Exam: NORMAL INSPECTION - Neurological Exam Neurological Exam: Alert, Awake, Oriented x3 - Psychiatric Exam Psychiatric exam: Anxious - Skin Skin Exam: Erythema, Rash, Vesicles Assessment and Plan (1) Bilateral cellulitis of lower leg Assessment & Plan: To continue IV antibiotics as per Dr. Yang. Status: Acute (2) Hypertension Assessment & Plan: To continue same meds. Status: Acute
--- NOTE | 2016-08-30 22:53 | CP.PCM.PN ---
Subjective - Date & Time of Evaluation Date of Evaluation: 08/30/16 Time of Evaluation: 13:20 - Subjective Subjective: Patient alert and responsive. Cellulitis of the lower extremities improved. D-dimer 5280. Patient has mild shortness of breath on exertion. Objective - Vital Signs/Intake and Output Vital Signs (last 24 hours): Temp Pulse Resp BP Pulse Ox 97.3 F L 70 18 120/72 95 08/30/16 15:39 08/30/16 15:39 08/30/16 15:39 08/30/16 15:39 08/30/16 15:39 Intake and Output: 08/30/16 08/31/16 18:59 06:59 Intake Total 830 Balance 830 - Medications Medications: Current Medications Allopurinol (Zyloprim) 100 mg PO DAILY [facility] Last Admin: 08/30/16 12:28 Dose: 100 mg Cyclobenzaprine HCl (Flexeril) 10 mg PO TID [facility] Last Admin: 08/30/16 18:48 Dose: 10 mg Enoxaparin Sodium (Lovenox) 30 mg SC Q12 [facility] Last Admin: 08/30/16 21:25 Dose: 30 mg Ferrous Gluconate (Fergon) 324 mg PO TIDCC [facility] Last Admin: 08/30/16 18:49 Dose: 324 mg Fluocinonide (Lidex 0.05% Cream) 15 gm TOP BID [facility] Last Admin: 08/30/16 18:49 Dose: 1 appl Vancomycin HCl 1,000 mg/ (Sodium Chloride) 250 mls @ 166.6 mls/hr IVPB Q12H [facility] Last Admin: 08/30/16 21:31 Dose: 166.6 mls/hr Aztreonam 1 gm/ Sodium (Chloride) 100 mls @ 100 mls/hr IVPB Q8H [facility] Last Admin: 08/30/16 20:36 Dose: 100 mls/hr Ibuprofen (Motrin Tab) 600 mg PO TIDCC [facility] Last Admin: 08/30/16 18:48 Dose: 600 mg Ketoconazole (Nizoral) 0 gm TOP BID [facility] Last Admin: 08/30/16 18:49 Dose: 1 appl - Labs Labs: 08/29/16 12:40 08/29/16 12:40 - Constitutional Appears: No Acute Distress - Head Exam Head Exam: NORMAL INSPECTION - Eye Exam Eye Exam: Normal appearance Pupil Exam: NORMAL ACCOMODATION - ENT Exam ENT Exam: Normal Exam - Neck Exam Neck Exam: Normal Inspection - Respiratory Exam Respiratory Exam: Decreased Breath Sounds - Cardiovascular Exam Cardiovascular Exam: REGULAR RHYTHM - GI/Abdominal Exam GI & Abdominal Exam: Normal Bowel Sounds - Rectal Exam Rectal Exam: Deferred - Extremities Exam Extremities Exam: Pedal Edema - Back Exam Back Exam: NORMAL INSPECTION - Neurological Exam Neurological Exam: Oriented x3 - Psychiatric Exam Psychiatric exam: Anxious - Skin Skin Exam: Dry Assessment and Plan (1) Congestive heart failure due to high blood pressure Status: Acute (2) Degenerative joint disease Status: Acute (3) Cellulitis Status: Deleted (4) Cellulitis of abdominal wall Status: Acute (5) Fungal rash of torso Status: Acute (6) Obesity Status: Chronic
[2016-08-31 01:47] VITALS: RESP 20
[2016-08-31] MEDS: Aztreonam 1 GM in Sodium Chloride 0.9% 100 ML IVPB SCH ×3 (04:23→20:42)
[2016-08-31] MEDS: Enoxaparin 30 mg Syringe SC SCH ×2 (10:03→21:47)
--- NOTE | 2016-08-31 11:57 | CARD ---
APPROVED REPORT EKG Measurement Heart [id number] <Conclusion> Normal sinus rhythm Normal ECG
--- NOTE | 2016-08-31 14:02 | PN ---
DATE: 08/31/2016 PHYSICAL EXAMINATION: GENERAL: The patient is in bed. He is alert, oriented. VITAL SIGNS: Afebrile. Blood pressure 120/80, pulse rate of 67 per minute, respiration 20 per minut e, and hemoglobin oxygen saturation of 96% on room air. He is not in acute distress. He does not complain of chest pain or dyspnea at rest. There is no cou gh at present. His rash is getting better, was probably related to intravenous vancomycin given by i nfectious disease consult. HEART: Regular. No gallop rhythm. LUNGS: Diminished breath sounds over the lung bases. No rhonchi. ABDOMEN: Soft. LEGS: No edema. The patient has not been using incentive spirometry. He is overweight. Does not complain of snoring . He declines to have sleep test evaluation for upper airway disease with obstructive sleep apnea. His CT angio chest shows no reported evidence of pulmonary embolus. IMPRESSION: Respiratory insufficiency, obesity, hypertensive cardiovascular disease with pulmonary c ongestion, osteoarthritis, gout, and remote deep venous thrombosis and inferior vena cava filter inse rtion and evaluation by vascular surgeon. PLAN: To continue with the current regimen, all the medications he is taking at the moment. Follow up by infectious disease consult. I have instructed him to use incentive spirometry. Sudarshan Delong MD cc: [id number] TT: 08/31/2016 14:01:40 Confirmation # [id number] Dictation # [id number] [email or web address]
--- NOTE | 2016-08-31 22:35 | CP.PCM.PN ---
Subjective - Date & Time of Evaluation Date of Evaluation: 08/31/16 Time of Evaluation: 13:10 - Subjective Subjective: Patient alert and responsive. CT scan reveals vascular congestion, and coronary calcifications. Patient also noted to have gall stones. Plan is to continue vancomycin IV antibiotic theraply for cellulitis. Objective - Vital Signs/Intake and Output Vital Signs (last 24 hours): Temp Pulse Resp BP Pulse Ox 97.5 F L 88 20 105/70 95 08/31/16 15:54 08/31/16 15:54 08/31/16 15:54 08/31/16 15:54 08/31/16 15:54 - Medications Medications: Current Medications Allopurinol (Zyloprim) 100 mg PO DAILY [facility] Last Admin: 08/31/16 10:03 Dose: 100 mg Cyclobenzaprine HCl (Flexeril) 10 mg PO TID [facility] Last Admin: 08/31/16 17:39 Dose: 10 mg Enoxaparin Sodium (Lovenox) 30 mg SC Q12 [facility] Last Admin: 08/31/16 21:47 Dose: 30 mg Ferrous Gluconate (Fergon) 324 mg PO TIDCC [facility] Last Admin: 08/31/16 17:39 Dose: 324 mg Fluocinonide (Lidex 0.05% Cream) 15 gm TOP BID [facility] Last Admin: 08/31/16 17:42 Dose: 1 appl Furosemide (Lasix) 20 mg PO DAILY [facility] Last Admin: 08/31/16 10:03 Dose: 20 mg Vancomycin HCl 1,000 mg/ (Sodium Chloride) 250 mls @ 166.6 mls/hr IVPB Q12H [facility] Last Admin: 08/31/16 21:48 Dose: 166.6 mls/hr Aztreonam 1 gm/ Sodium (Chloride) 100 mls @ 100 mls/hr IVPB Q8H [facility] Last Admin: 08/31/16 20:42 Dose: 100 mls/hr Ibuprofen (Motrin Tab) 600 mg PO TIDCC [facility] Last Admin: 08/31/16 17:42 Dose: 600 mg Ketoconazole (Nizoral) 0 gm TOP BID [facility] Last Admin: 08/31/16 17:42 Dose: 1 appl - Labs Labs: 08/29/16 12:40 08/29/16 12:40 - Constitutional Appears: No Acute Distress - Head Exam Head Exam: NORMAL INSPECTION - Eye Exam Eye Exam: Normal appearance - ENT Exam ENT Exam: Normal Exam - Neck Exam Neck Exam: Normal Inspection - Respiratory Exam Respiratory Exam: Decreased Breath Sounds - Cardiovascular Exam Cardiovascular Exam: REGULAR RHYTHM - GI/Abdominal Exam GI & Abdominal Exam: Normal Bowel Sounds - Rectal Exam Rectal Exam: Deferred - Exam Exam: NORMAL INSPECTION - Extremities Exam Extremities Exam: Calf Tenderness - Back Exam Back Exam: NORMAL INSPECTION - Neurological Exam Neurological Exam: Oriented x3 - Psychiatric Exam Psychiatric exam: Anxious - Skin Skin Exam: Dry Assessment and Plan (1) Congestive heart failure due to high blood pressure Status: Acute (2) Degenerative joint disease Status: Acute (3) Cellulitis Status: Deleted (4) Cellulitis of abdominal wall Status: Acute (5) Fungal rash of torso Status: Acute (6) Obesity Status: Chronic
[2016-09-01] MEDS: Aztreonam 1 GM in Sodium Chloride 0.9% 100 ML IVPB SCH ×3 (05:15→20:46)
[2016-09-01] MEDS: Enoxaparin 30 mg Syringe SC SCH ×2 (09:47→21:26)
--- NOTE | 2016-09-01 14:04 | PN ---
DATE: 09/01/2016 The patient is alert, oriented, in bed. PHYSICAL EXAMINATION: VITAL SIGNS: He is afebrile with blood pressure 120/82, pulse is 66 per minute, respirations 20, hem oglobin oxygen saturation of 97% on room air, not in acute distress . HEART: Regular. There is no gallop rhythm. LUNGS: Diminished breath sounds over lung bases. ABDOMEN: Soft. EXTREMITIES: Legs, rash is improved. NEUROLOGIC: Osteoarthritic changes in the knees, leg cellulitis is improving. He is on Azactam and vancomycin intravenously, ordered by infectious disease specialist. His CT angio chest is negative for pulmonary embolization and his leg Doppler shows old changes in th e veins. The patient has had DVT previously and has had IVC filter implant. IMPRESSION: Hypertensive cardiovascular disease with pulmonary venous congestion, respiratory insuff iciency, cellulitis of legs and lower abdominal wall, osteoarthritis, gout. PLAN: To continue with the current management and continue with incentive spirometry. Sudarshan Delong MD cc: [id number] TT: 09/01/2016 14:04:13 Confirmation # [id number] Dictation # [id number] agustin
[2016-09-02] MEDS: Aztreonam 1 GM in Sodium Chloride 0.9% 100 ML IVPB SCH ×3 (04:15→21:34)
--- NOTE | 2016-09-02 07:48 | CP.PCM.PN ---
Subjective - Date & Time of Evaluation Date of Evaluation: 09/01/16 Time of Evaluation: 14:10 - Subjective Subjective: Still has shortness of breath. Chest xray reveals cardiomegaly and venous congestion. Will continue lasix for systolic congestive heart failure. Patient also noted to have numerous gall stones. Objective - Vital Signs/Intake and Output Vital Signs (last 24 hours): Temp Pulse Resp BP Pulse Ox 97.5 F L 75 20 123/79 96 09/02/16 00:41 09/02/16 00:41 09/02/16 00:41 09/02/16 00:41 09/02/16 00:41 - Medications Medications: Current Medications Allopurinol (Zyloprim) 100 mg PO DAILY [facility] Last Admin: 09/01/16 09:47 Dose: 100 mg Cyclobenzaprine HCl (Flexeril) 10 mg PO TID [facility] Last Admin: 09/01/16 17:37 Dose: 10 mg Enoxaparin Sodium (Lovenox) 30 mg SC Q12 [facility] Last Admin: 09/01/16 21:26 Dose: 30 mg Ferrous Gluconate (Fergon) 324 mg PO TIDCC [facility] Last Admin: 09/01/16 16:12 Dose: 324 mg Fluocinonide (Lidex 0.05% Cream) 15 gm TOP BID [facility] Last Admin: 09/01/16 17:38 Dose: 1 appl Furosemide (Lasix) 20 mg PO DAILY [facility] Last Admin: 09/01/16 09:46 Dose: 20 mg Vancomycin HCl 1,000 mg/ (Sodium Chloride) 250 mls @ 166.6 mls/hr IVPB Q12H [facility] Last Admin: 09/01/16 21:26 Dose: 166.6 mls/hr Aztreonam 1 gm/ Sodium (Chloride) 100 mls @ 100 mls/hr IVPB Q8H [facility] Last Admin: 09/02/16 04:15 Dose: 100 mls/hr Ibuprofen (Motrin Tab) 600 mg PO TIDCC [facility] Last Admin: 09/01/16 16:12 Dose: 600 mg Ketoconazole (Nizoral) 0 gm TOP BID [facility] Last Admin: 09/01/16 17:38 Dose: 1 appl - Labs Labs: 08/29/16 12:40 08/29/16 12:40 - Constitutional Appears: Chronically Ill - Head Exam Head Exam: NORMAL INSPECTION - Eye Exam Eye Exam: Normal appearance - ENT Exam ENT Exam: Normal Exam - Neck Exam Neck Exam: Normal Inspection - Respiratory Exam Respiratory Exam: Decreased Breath Sounds - Cardiovascular Exam Cardiovascular Exam: REGULAR RHYTHM - GI/Abdominal Exam GI & Abdominal Exam: Hyperactive Bowel Sounds - Rectal Exam Rectal Exam: Deferred - Exam Exam: NORMAL INSPECTION - Extremities Exam Extremities Exam: Joint Swelling - Back Exam Back Exam: NORMAL INSPECTION - Neurological Exam Neurological Exam: Oriented x3 - Psychiatric Exam Psychiatric exam: Anxious - Skin Skin Exam: Dry Assessment and Plan (1) Congestive heart failure due to high blood pressure Status: Acute (2) Degenerative joint disease Status: Acute (3) Cellulitis Status: Deleted (4) Cellulitis of abdominal wall Status: Acute (5) Fungal rash of torso Status: Acute (6) Obesity Status: Chronic
[2016-09-02] MEDS: Enoxaparin 30 mg Syringe SC SCH ×2 (12:00→21:33)
--- NOTE | 2016-09-02 14:40 | PN ---
DATE: 09/02/2016 The patient is alert, oriented. VITAL SIGNS: Afebrile with blood pressure 122/80, pulse 68, respirations 20, hemoglobin oxygen satur ation of 97% on room air. He is not in distress. There is no chest pain, no dyspnea at present at rest. His pains are easier. His rash is subsiding. PHYSICAL EXAMINATION: HEART: Regular with no gallop rhythm. LUNGS: Diminished breath sounds over lung bases. No crepitations. ABDOMEN: Soft. EXTREMITIES: Legs, edema subsiding. Osteoarthritic changes in the knees noticed. IMPRESSION: Respiratory insufficiency, cellulitis legs, hypertensive cardiovascular disease with pul monary venous congestion, osteoarthritis , obesity and bronchitis. PLAN: To continue with the current measures and follow up with the PMD. Sudarshan Delong MD cc: [id number] TT: 09/02/2016 14:40:11 Confirmation # [id number] Dictation # [id number]
--- NOTE | 2016-09-02 15:44 | CP.PCM.PN ---
Subjective - Date & Time of Evaluation Date of Evaluation: 09/02/16 Time of Evaluation: 09:00 - Subjective Subjective: iv rx in progress vanco reodered less cellulitis Objective - Vital Signs/Intake and Output Vital Signs (last 24 hours): Temp Pulse Resp BP Pulse Ox 97.5 F L 69 20 122/80 97 09/02/16 07:50 09/02/16 12:05 09/02/16 07:50 09/02/16 12:05 09/02/16 07:50 - Medications Medications: Current Medications Allopurinol (Zyloprim) 100 mg PO DAILY [facility] Last Admin: 09/02/16 12:00 Dose: 100 mg Cyclobenzaprine HCl (Flexeril) 10 mg PO TID [facility] Last Admin: 09/02/16 14:10 Dose: Not Given Enoxaparin Sodium (Lovenox) 30 mg SC Q12 [facility] Last Admin: 09/02/16 12:00 Dose: 30 mg Ferrous Gluconate (Fergon) 324 mg PO TIDCC [facility] Last Admin: 09/02/16 13:39 Dose: 324 mg Fluocinonide (Lidex 0.05% Cream) 15 gm TOP BID [facility] Last Admin: 09/02/16 12:07 Dose: 1 appl Furosemide (Lasix) 20 mg PO DAILY [facility] Last Admin: 09/02/16 12:02 Dose: 20 mg Vancomycin HCl 1,000 mg/ (Sodium Chloride) 250 mls @ 166.6 mls/hr IVPB Q12H [facility] Last Admin: 09/02/16 12:01 Dose: 166.6 mls/hr Aztreonam 1 gm/ Sodium (Chloride) 100 mls @ 100 mls/hr IVPB Q8H [facility] Last Admin: 09/02/16 13:40 Dose: 100 mls/hr Ibuprofen (Motrin Tab) 600 mg PO TIDCC [facility] Last Admin: 09/02/16 13:39 Dose: 600 mg Ketoconazole (Nizoral) 0 gm TOP BID [facility] Last Admin: 09/02/16 12:07 Dose: 1 appl - Labs Labs: 08/29/16 12:40 08/29/16 12:40 - Constitutional Appears: Non-toxic, Chronically Ill - Head Exam Head Exam: NORMOCEPHALIC - Eye Exam Eye Exam: PERRL. absent: Scleral icterus - ENT Exam ENT Exam: Mucous Membranes Dry - Neck Exam Neck Exam: absent: Lymphadenopathy - Respiratory Exam Respiratory Exam: Decreased Breath Sounds, Rhonchi - Cardiovascular Exam Cardiovascular Exam: REGULAR RHYTHM, +S1, +S2 - GI/Abdominal Exam GI & Abdominal Exam: Distended, Soft. absent: Tenderness - Rectal Exam Rectal Exam: Deferred - Exam Exam: NORMAL INSPECTION - Extremities Exam Extremities Exam: Pedal Edema. absent: Calf Tenderness, Tenderness - Back Exam Back Exam: absent: CVA tenderness (L) - Neurological Exam Neurological Exam: Alert, Awake, Oriented x3 Assessment and Plan (1) Cellulitis Status: Deleted (2) Cellulitis of abdominal wall Status: Acute (3) Fungal rash of torso Status: Acute (4) Obesity Status: Chronic
--- NOTE | 2016-09-02 22:35 | CP.PCM.PN ---
Subjective - Date & Time of Evaluation Date of Evaluation: 09/02/16 Time of Evaluation: 13:15 - Subjective Subjective: Patient making progress. Legs less inflammed and less shortness of breath. Both knees less swollen and less inginal fungal irritation. Objective - Vital Signs/Intake and Output Vital Signs (last 24 hours): Temp Pulse Resp BP Pulse Ox 97.5 F L 69 20 122/80 97 09/02/16 07:50 09/02/16 12:05 09/02/16 07:50 09/02/16 12:05 09/02/16 07:50 Intake and Output: 09/02/16 09/03/16 18:59 06:59 Intake Total 640 Balance 640 - Medications Medications: Current Medications Allopurinol (Zyloprim) 100 mg PO DAILY [facility] Last Admin: 09/02/16 12:00 Dose: 100 mg Cyclobenzaprine HCl (Flexeril) 10 mg PO TID [facility] Last Admin: 09/02/16 17:50 Dose: 10 mg Enoxaparin Sodium (Lovenox) 30 mg SC Q12 [facility] Last Admin: 09/02/16 21:33 Dose: 30 mg Ferrous Gluconate (Fergon) 324 mg PO TIDCC [facility] Last Admin: 09/02/16 17:50 Dose: 324 mg Fluocinonide (Lidex 0.05% Cream) 15 gm TOP BID [facility] Last Admin: 09/02/16 17:50 Dose: Not Given Furosemide (Lasix) 20 mg PO DAILY [facility] Last Admin: 09/02/16 12:02 Dose: 20 mg Vancomycin HCl 1,000 mg/ (Sodium Chloride) 250 mls @ 166.6 mls/hr IVPB Q12H [facility] Last Admin: 09/02/16 21:34 Dose: 166.6 mls/hr Aztreonam 1 gm/ Sodium (Chloride) 100 mls @ 100 mls/hr IVPB Q8H [facility] Last Admin: 09/02/16 21:34 Dose: 100 mls/hr Ibuprofen (Motrin Tab) 600 mg PO TIDCC [facility] Last Admin: 09/02/16 17:49 Dose: 600 mg Ketoconazole (Nizoral) 0 gm TOP BID [facility] Last Admin: 09/02/16 17:50 Dose: Not Given - Labs Labs: 08/29/16 12:40 08/29/16 12:40 - Constitutional Appears: Chronically Ill - Head Exam Head Exam: NORMAL INSPECTION - Eye Exam Eye Exam: Normal appearance Pupil Exam: NORMAL ACCOMODATION - ENT Exam ENT Exam: Normal Exam - Neck Exam Neck Exam: Normal Inspection - Respiratory Exam Respiratory Exam: Decreased Breath Sounds - Cardiovascular Exam Cardiovascular Exam: REGULAR RHYTHM - GI/Abdominal Exam GI & Abdominal Exam: Normal Bowel Sounds - Rectal Exam Rectal Exam: Deferred - Exam Exam: NORMAL INSPECTION - Neurological Exam Neurological Exam: Oriented x3 - Psychiatric Exam Psychiatric exam: Anxious - Skin Skin Exam: Dry Assessment and Plan (1) Congestive heart failure due to high blood pressure Status: Acute (2) Degenerative joint disease Status: Acute (3) Cellulitis Status: Deleted (4) Cellulitis of abdominal wall Status: Acute (5) Fungal rash of torso Status: Acute (6) Obesity Status: Chronic
[2016-09-03 00:02] VITALS: PULSE 75; O2SAT 95
[2016-09-03] MEDS: Aztreonam 1 GM in Sodium Chloride 0.9% 100 ML IVPB SCH (04:20)
[2016-09-03 08:19] VITALS: TEMP 97.9
--- NOTE | 2016-09-03 09:39 | CP.PCM.PN ---
Subjective - Date & Time of Evaluation Date of Evaluation: 09/03/16 Time of Evaluation: 09:38 - Subjective Subjective: Alert, awake, no sob or chest pains, no edema. Rash improving. Objective - Vital Signs/Intake and Output Vital Signs (last 24 hours): Temp Pulse Resp BP Pulse Ox 97.9 F 75 20 126/81 95 09/03/16 08:18 09/03/16 08:18 09/03/16 08:18 09/03/16 08:18 09/03/16 08:18 Intake and Output: 09/03/16 09/03/16 06:59 18:59 Intake Total 800 Balance 800 - Medications Medications: Current Medications Allopurinol (Zyloprim) 100 mg PO DAILY [facility] Last Admin: 09/02/16 12:00 Dose: 100 mg Cyclobenzaprine HCl (Flexeril) 10 mg PO TID [facility] Last Admin: 09/02/16 17:50 Dose: 10 mg Enoxaparin Sodium (Lovenox) 30 mg SC Q12 [facility] Last Admin: 09/02/16 21:33 Dose: 30 mg Ferrous Gluconate (Fergon) 324 mg PO TIDCC [facility] Last Admin: 09/03/16 08:02 Dose: 324 mg Fluocinonide (Lidex 0.05% Cream) 15 gm TOP BID [facility] Last Admin: 09/02/16 17:50 Dose: Not Given Furosemide (Lasix) 20 mg PO DAILY [facility] Last Admin: 09/02/16 12:02 Dose: 20 mg Vancomycin HCl 1,000 mg/ (Sodium Chloride) 250 mls @ 166.6 mls/hr IVPB Q12H [facility] Last Admin: 09/02/16 21:34 Dose: 166.6 mls/hr Aztreonam 1 gm/ Sodium (Chloride) 100 mls @ 100 mls/hr IVPB Q8H [facility] Last Admin: 09/03/16 04:20 Dose: 100 mls/hr Ibuprofen (Motrin Tab) 600 mg PO TIDCC [facility] Last Admin: 09/03/16 08:03 Dose: 600 mg Ketoconazole (Nizoral) 0 gm TOP BID [facility] Last Admin: 09/02/16 17:50 Dose: Not Given - Labs Labs: 08/29/16 12:40 08/29/16 12:40 Assessment and Plan - Assessment and Plan (Free Text) Assessment: Patient is seen and examined. Alert and orientedx3, no acute complaints. Denies sob or chest pains. Discussed with DR Brown, plan to discharge home today on cipro for 5 days. To follow up in the office in 1 week.
[2016-09-03 11:02] VITALS: BP 141/97
[2016-09-03] MEDS: Enoxaparin 30 mg Syringe SC SCH (11:02)
--- NOTE | 2016-09-04 11:45 | CP.PCM.DIS ---
Provider - Provider Date of Admission: 08/28/16 18:52 Attending physician: Daquan Brown MD Time Spent in preparation of Discharge (in minutes): 25 Diagnosis - Discharge Diagnosis (1) Congestive heart failure due to high blood pressure Status: Acute (2) Degenerative joint disease Status: Acute (3) Cellulitis Status: Deleted (4) Cellulitis of abdominal wall Status: Acute (5) Fungal rash of torso Status: Acute Priority: Medium (6) Obesity Status: Chronic Priority: Medium Hospital Course - Lab Results Lab Results: Micro Results 08/28/16 19:10 Blood Blood Culture - Final NO GROWTH AFTER 5 DAYS 08/28/16 19:10 Blood Gram Stain - Final TEST NOT PERFORMED 08/28/16 20:03 Urine Urine Culture - Final No Growth (<1,000 CFU/ML) Most Recent Lab Values WBC 8.7 K/uL (4.8-10.8) 08/29/16 12:40 RBC 3.72 Mil/uL (4.40-5.90) L 08/29/16 12:40 Hgb 10.7 g/dL (12.0-18.0) L 08/29/16 12:40 Hct 32.1 % (35.0-51.0) L 08/29/16 12:40 MCV 86.2 fL (80.0-94.0) 08/29/16 12:40 MCH 28.8 pg (27.0-31.0) 08/29/16 12:40 MCHC 33.4 g/dL (33.0-37.0) 08/29/16 12:40 RDW 16.2 % (11.5-14.5) H 08/29/16 12:40 Plt Count 388 K/uL (130-400) 08/29/16 12:40 MPV 7.8 fL (7.2-11.7) 08/29/16 12:40 Neut % (Auto) 79.9 % (50.0-75.0) H 08/28/16 18:52 Lymph % (Auto) 9.8 % (20.0-40.0) L 08/28/16 18:52 Burnett % (Auto) 8.8 % (0.0-10.0) 08/28/16 18:52 Eos % (Auto) 0.7 % (0.0-4.0) 08/28/16 18:52 Baso % (Auto) 0.8 % (0.0-2.0) 08/28/16 18:52 Neut # 10.6 K/uL (1.8-7.0) H 08/28/16 18:52 Lymph # 1.3 K/uL (1.0-4.3) 08/28/16 18:52 Burnett # 1.2 K/uL (0.0-0.8) H 08/28/16 18:52 Eos # 0.1 K/uL (0.0-0.7) 08/28/16 18:52 Baso # 0.1 K/uL (0.0-0.2) 08/28/16 18:52 Neutrophils % (Manual) 81 % (50-75) H 08/28/16 18:52 Band Neutrophils % 1 % (0-2) 08/28/16 18:52 Lymphocytes % (Manual) 9 % (20-40) L 08/28/16 18:52 Monocytes % (Manual) 9 % (0-10) 08/28/16 18:52 Platelet Estimate Slightly increased (NORMAL) H 08/28/16 18:52 Large Platelets Present 08/28/16 18:52 Hypochromasia (manual) Slight 08/28/16 18:52 Poikilocytosis (manual Slight 08/28/16 18:52 Anisocytosis (manual) Slight 08/28/16 18:52 Microcytosis (manual) Slight 08/28/16 18:52 Ovalocytes Slight 08/28/16 18:52 D-Dimer, Quantitative > 5250 ng/mlDDU (0-243) H 08/29/16 14:17 Puncture Site Rr 08/29/16 13:19 pCO2 32 mm/Hg (35-45) L 08/29/16 13:19 pO2 91 mm/Hg (80-100) 08/29/16 13:19 HCO3 24.0 mmol/L (21-28) 08/29/16 13:19 ABG pH 7.45 (7.35-7.45) 08/29/16 13:19 ABG Total CO2 23.2 mmol/L (22-28) 08/29/16 13:19 ABG O2 Saturation 98.9 % (95-98) H 08/29/16 13:19 ABG Base Excess -1.2 mmol/L (-2.0-3.0) 08/29/16 13:19 ABG Hemoglobin 11.6 g/dL (11.7-17.4) L 08/29/16 13:19 ABG Carboxyhemoglobin 2.0 % (0.5-1.5) H 08/29/16 13: POC ABG HHb (Measured) 1.1 % (0.0-5.0) 08/29/16 13: ABG Methemoglobin 1.3 % (0.0-3.0) 08/29/16 13: Rajan Test Po 08/29/16 13:19 VBG pH 7.38 (7.32-7.43) 08/28/16 19:00 VBG pCO2 41 mmHg (40-60) 08/28/16 19:00 VBG HCO3 24.1 mmol/L 08/28/16 19:00 VBG Total CO2 25.6 mmol/L (22-28) 08/28/16 19:00 VBG O2 Sat (Calc) 94.9 % (40-65) H 08/28/16 19:00 VBG Base Excess -0.8 mmol/L (0.0-2.0) L 08/28/16 19:00 VBG Potassium 4.7 mmol/L (3.6-5.2) 08/28/16 19:00 A-a O2 Difference 19.0 mm/Hg 08/29/16 13: Respiratory Index 0.2 08/29/16 13: Hgb O2 Saturation 95.7 % (95.0-98.0) 08/29/16 13:19 Sodium 137.0 mmol/l (132-148) 08/28/16 19:00 Chloride 109.0 mmol/L (98-107) H 08/28/16 19:00 Glucose 85 mg/dl (75-110) 08/28/16 19:00 Lactate 1.1 mmol/L (0.7-2.1) 08/28/16 19:00 FiO2 21.0 % 08/29/16 13: Sodium 138 mmol/L (132-148) 08/29/16 12:40 Potassium 3.9 mmol/L (3.6-5.2) 08/29/16 12:40 Chloride 101 mmol/L (98-107) 08/29/16 12:40 Carbon Dioxide 23 mmol/L (22-30) 08/29/16 12:40 Anion Gap 18 (10-20) 08/29/16 12:40 BUN 12 mg/dL (9-20) 08/29/16 12:40 Creatinine 0.9 MG/DL (0.8-1.5) 08/29/16 12:40 Est GFR ( Amer) > 60 08/29/16 12:40 Est GFR (Non-Af Amer) > 60 08/29/16 12:40 POC Glucose (mg/dL) 90 mg/dL (65-110) 09/03/16 07:46 Random Glucose 108 mg/dL (75-110) 08/29/16 12:40 Calcium 8.5 mg/dl (8.6-10.4) L 08/29/16 12:40 Total Bilirubin 0.6 mg/dL (0.2-1.3) 08/29/16 12:40 AST 11 U/L (17-59) L D 08/29/16 12:40 ALT < 6 U/L (21-72) L 08/29/16 12:40 Alkaline Phosphatase 59 U/L (38-126) 08/29/16 12:40 Total Protein 7.6 g/dL (6.3-8.3) 08/29/16 12:40 Albumin 3.3 g/dL (3.5-5.0) L 08/29/16 12:40 Globulin 4.3 gm/dL (2.2-3.9) H 08/29/16 12:40 Albumin/Globulin Ratio 0.8 (1.0-2.1) L 08/29/16 12:40 Venous Blood Potassium 4.7 mmol/L (3.6-5.2) 08/28/16 19:00 Urine Color Nicol (YELLOW) 08/28/16 20:01 Urine Clarity Clear (Clear) 08/28/16 20:01 Urine pH 5.0 (5.0-8.0) 08/28/16 20:01 Ur Specific [place] 1.021 (1.003-1.030) 08/28/16 20:01 Urine Protein 1+ mg/dL (NEGATIVE) H 08/28/16 20:01 Urine Glucose (UA) Normal mg/dL (Normal) 08/28/16 20:01 Urine Ketones Negative mg/dL (NEGATIVE) 08/28/16 20:01 Urine Blood 1+ (NEGATIVE) H 08/28/16 20:01 Urine Nitrate Negative (NEGATIVE) 08/28/16 20:01 Urine Bilirubin Negative (NEGATIVE) 08/28/16 20:01 Urine Urobilinogen 2.0 mg/dL (0.2-1.0) 08/28/16 20:01 Ur Leukocyte Esterase Neg Loi/uL (Negative) 08/28/16 20:01 Urine WBC (Auto) 6 /hpf (0-5) H 08/28/16 20:01 Urine RBC (Auto) 21 /hpf (0-3) H 08/28/16 20:01 Ur Squamous Epith Cells < 1 /hpf (0-5) 08/28/16 20:01 Hyaline Casts 0-2 /lpf (0-2) 08/28/16 20:01 Vancomycin Trough 6.8 ug/mL (5.0-10.0) 08/30/16 06:47 Cycl Citrul Peptide IgG <16 Units (<20) 08/29/16 12:40 Discharge Exam - Head Exam Head Exam: NORMAL INSPECTION - Eye Exam Eye Exam: Normal appearance Pupil Exam: NORMAL ACCOMODATION - ENT Exam ENT Exam: Normal Exam - Neck Exam Neck exam: Normal Inspection - Respiratory Exam Respiratory Exam: Decreased Breath Sounds - Cardiovascular Exam Cardiovascular Exam: REGULAR RHYTHM - GI/Abdominal Exam GI & Abdominal Exam: Normal Bowel Sounds - Rectal Exam Rectal Exam: Deferred - Exam Exam: NORMAL INSPECTION - Extremities Exam Extremities exam: joint swelling - Back Exam Back exam: NORMAL INSPECTION - Neurological Exam Neurological exam: Oriented x3 - Psychiatric Exam Psychiatric exam: Anxious - Skin Skin Exam: Dry Discharge Plan - Discharge Medications Prescriptions: Ciprofloxacin HCl [Cipro] 500 mg PO BID #10 tablet - Follow Up Plan Condition: GUARDED Disposition: HOME/ ROUTINE Instructions: Ciprofloxacin (By mouth), Antifungals (On the skin), Heart Failure (GEN), Cellulitis (GEN), Dyspnea (GEN), Hypertension (GEN) Additional Instructions: Patient is cleared to go home as per Dr Brown. A prescription for Ciproflaxin has been written, to be taken 1 tab twice a day for 5 days. Continue using the Lidex cream on the areas of concern. Please make an appointment to follow up with Dr Brown within a week. If symptoms persist or worsen return to the ER.
== END 2016-09-03 11:55 | disposition home or self-care (01) | DRG 292 ==
LOC: C.ER 17:10 → C.9E 18:52 → C.5T 19:52
PROVIDERS: ADMIT Internal Medicine; ATTEND Internal Medicine
DX: I11.0 Hypertensive heart disease with heart failure (principal); L03.311 Cellulitis of abdominal wall; L03.115 Cellulitis of right lower limb; I50.9 Heart failure, unspecified; M19.90 Unspecified osteoarthritis, unspecified site; E66.9 Obesity, unspecified; M10.9 Gout, unspecified; R06.89 Other abnormalities of breathing; G47.30 Sleep apnea, unspecified; K21.9 Gastro-esophageal reflux disease without esophagitis; B48.8 Other specified mycoses; B36.9 Superficial mycosis, unspecified; I83.009 Varicose veins of unspecified lower extremity with ulcer of unspecified site; E78.00 Pure hypercholesterolemia, unspecified; Z86.711 Personal history of pulmonary embolism; Z86.14 Personal history of Methicillin resistant Staphylococcus aureus infection; Z86.718 Personal history of other venous thrombosis and embolism; Z68.38 Body mass index [BMI] 38.0-38.9, adult

== ENCOUNTER 2016-10-01 18:19 | Inpatient (IN) | payer MEDICARE, OTHER ==
--- NOTE | 2016-10-01 19:14 | C.PDOC ---
History Of Present Illness 51 year old male presents to the ED with complaints of infection of the panus and lower abdominal wall. Patient states he was in the hospital a month ago for the similar symptoms that had improved but returned a week ago. He denies any nausea, vomiting, or diarrhea. He was feverish yesterday. Time Seen by Provider: 10/01/16 18:49 Chief Complaint (Nursing): Abnormal Skin Integrity History Per: Patient History/Exam Limitations: no limitations Onset/Duration Of Symptoms: Persistent (for the last month with some relief and returning of symptoms ) Current Symptoms Are (Timing): Still Present Location Of Injury: Right: Abdomen (panus of the abdomen and ), Left: Abdomen, Anterior: Abdomen Quality Of Symptoms: Painful Severity: Moderate Pain Scale Rating Of: 5 Recent travel outside of the [place]: No Past Medical History Reviewed: Historical Data, Nursing Documentation, Vital Signs Vital Signs: Last Vital Signs Temp 98.2 F 10/01/16 18:33 Pulse 127 H 10/01/16 18:33 Resp 22 10/01/16 18:33 BP 113/82 10/01/16 18:33 Pulse Ox 95 10/01/16 19:54 - Medical History PMH: Anemia, Arthritis, Deep Vein Thrombosis, Gastritis, HTN, Hypercholesterolemia, Peripheral Edema, Sleep Apnea - [facility] Procedures CLOSURE SKIN & SUBCUTANEOUS NEC (12/01/12) INJECT STEROID (03/29/14) INJECT/INFUSE NEC (03/29/14) INJECTION INTO JOINT (03/29/14) INSERTION OF INFUSION DEV INTO SUP VENA CAVA, PERC APPROACH (11/15/15) INTRODUCTION OF OTH THERAP SUBST INTO MUSCLE, PERC APPROACH (10/07/15) REPAIR ABDOMINAL WALL, EXTERNAL APPROACH (10/07/15) TRANSFUSE NONAUT FROZEN PLASMA IN PERIPH VEIN, PERC (10/07/15) TRANSFUSE NONAUT RED BLOOD CELLS IN PERIPH VEIN, PERC (10/07/15) Family History: States: No Known Family Hx - Social History Hx Tobacco Use: No Hx Alcohol Use: No Hx Substance Use: No - Immunization History Hx Tetanus Toxoid Vaccination: No Hx Influenza Vaccination: Yes Hx Pneumococcal Vaccination: Yes Review Of Systems Constitutional: Negative for: Fever, Chills Cardiovascular: Negative for: Chest Pain, Palpitations Respiratory: Negative for: Cough, Shortness of Breath Gastrointestinal: Positive for: Abdominal Pain. Negative for: Nausea, Vomiting , Diarrhea Physical Exam - Physical Exam Appears: Non-toxic, No Acute Distress, Other (patient appears uncomfortable. He is also morbidly obese despite 100 pound weight loss. Patient has rolls of panus. ) Skin: Warm, Dry, Other (weeping and reddness of the creases of the panus ) Head: Atraumatic Oral Mucosa: Moist Neck: Supple Cardiovascular: Rhythm Regular Respiratory: No Rales, No Rhonchi, No Stridor, No Wheezing Gastrointestinal/Abdominal: Soft, Tenderness (exquisitely tender to the abdominal wall ), No Distention, No Guarding, No Rebound Extremity: Tenderness, Other (edema in both legs; anterior of left lower leg has a half-dollar size wound that is tender and surrounded by erythema) Neurological/Psych: Oriented x3 ED Course And Treatment - Laboratory Results Result Diagrams: 10/01/16 19:35 10/01/16 19:35 Lab Interpretation: Abnormal Interpretation Of Abnormal: Elevated WBC 13 with left shift on differential. O2 Sat by Pulse Oximetry: 95 Pulse Ox Interpretation: Normal - Physician Consult Information Time Consulting Physician Contacted: 20:24 Physician Contacted: Daquan Brown Outcome Of Conversation: Patient to be admitted for IV antibiotics Disposition - Disposition Disposition: HOSPITALIZED Disposition Time: 20:25 Condition: STABLE - POA Present On Arrival: None - Clinical Impression Clinical Impression: Cellulitis of abdominal wall - Scribe Statement Angie Bowen All medical record entries made by the Evetteibchristina were at my direction and personally dictated by me. I have reviewed the chart and agree that the record accurately reflects my personal performance of the history, physical exam, medical decision making, and the department course for this patient. I have also personally directed, reviewed, and agree with the discharge instructions and disposition.
[2016-10-01 19:38] LABS: BASO # 0.1 K/uL (0.0-0.2); BASO % 0.6 % (0.0-2.0); EOS % 0.3 % (0.0-4.0); HEMATOCRIT 37.7 % (35.0-51.0); LYMPH % 7.4 % (20.0-40.0); MEAN CELL VOLUME 85.3 fL (80.0-94.0); MEAN CORPUSCULAR HEMOGLOBIN 28.7 pg (27.0-31.0); MEAN CORPUSCULAR HGB CONC 33.7 g/dL (33.0-37.0); MEAN PLATELET VOLUME 7.7 fL (7.2-11.7); MONO # 1.1 K/uL (0.0-0.8); MONO % 8.6 % (0.0-10.0); PLATELET COUNT 364 K/uL (130-400); RED CELL DISTRIBUTION WIDTH 16.5 % (11.5-14.5)
[2016-10-01 19:47] LABS: CHLORIDE 98 mmol/L (98-107); SODIUM 138 mmol/L (132-148)
[2016-10-01 19:49] LABS: GFR AFRICAN-AMERICAN > 60
[2016-10-01 19:50] LABS: ALB/GLOB RATIO 0.9 (1.0-2.1); ALKALINE PHOSPHATASE 57 U/L (38-126); ALT/SGPT 8 U/L (21-72); AST/SGOT 15 U/L (17-59); BLOOD UREA NITROGEN 19 mg/dL (9-20); CARBON DIOXIDE 27 mmol/L (22-30); GLUCOSE,RANDOM 114 mg/dL (75-110); TOTAL PROTEIN 8.5 g/dL (6.3-8.3)
[2016-10-01 19:51] LABS: CALCIUM 8.9 mg/dl (8.6-10.4)
[2016-10-01 20:24] LABS: NEUTROPHIL 80 % (50-75); TOTAL CELLS COUNTED 100
[2016-10-01] MEDS: Vancomycin 500mg/D5W 100 ml 500 MG/100 ML BAG IVPB SCH (20:41)
[2016-10-02] MEDS ORDERED: NABUMETONE 750 MG PO SCH (10:00)
[2016-10-02] MEDS ORDERED: FERROUS FUMARATE 324 MG PO SCH ×2 (10:00)
[2016-10-02] MEDS: Pantoprazole 40 mg EC Tab PO SCH (10:38)
[2016-10-02] MEDS: Vancomycin 500mg/D5W 100 ml 500 MG/100 ML BAG IVPB SCH ×2 (10:39→21:07)
[2016-10-02] MEDS: Enoxaparin 30 mg Syringe SC SCH (10:40)
[2016-10-02] MEDS: FERROUS FUMARATE 50 MG PO SCH ×3 (10:41→17:41)
--- NOTE | 2016-10-02 22:35 | CP.PCM.HP ---
History of Present Illness - History of Present Illness History of Present Illness: Patient comes to [facility] ER with reoccurance of a dffused in fection of the lower abdominal wall and panus. He also complains of joint pain and shortness of breath on exertion. Present on Admission - Present on Admission Any Indicators Present on Admission: No History of DVT/PE: Yes History of Uncontrolled Diabetes: No Urinary Catheter: No Decubitus Ulcer Present: No History Surgical Site Infection Following: None Past Patient History - Infectious Disease Hx of Infectious Diseases: MRSA - Tetanus Immunizations Tetanus Immunization: Up to Date - Past Medical History & Family History Past Medical History?: Yes - Past Social History Smoking Status: Former Smoker Chewing Tobacco Use: No Cigar Use: No - CARDIAC Hx Hypercholesterolemia: Yes Hx Hypertension: Yes Hx Peripheral Edema: Yes - PULMONARY Hx Asthma: Yes Hx Bronchitis: Yes Hx Pneumonia: Yes Hx Respiratory Tract Infection: Yes Hx Sleep Apnea: Yes - NEUROLOGICAL Hx Neurological Disorder: No - HEENT Hx HEENT Problems: No - RENAL Hx Chronic Kidney Disease: No Hx Kidney Stones: Yes - ENDOCRINE/METABOLIC Hx Endocrine Disorders: No - HEMATOLOGICAL/ONCOLOGICAL Hx Anemia: Yes - INTEGUMENTARY Hx Dermatological Problems: No - MUSCULOSKELETAL/RHEUMATOLOGICAL Hx Back Pain: Yes Hx Degenerative Joint Disease: Yes Hx Falls: No Hx Osteoarthritis: Yes Hx Unsteady Gait: Yes - GASTROINTESTINAL Hx Gastrointestinal Disorders: Yes Hx Gastritis: Yes - GENITOURINARY/GYNECOLOGICAL Hx Genitourinary Disorders: No Hx Urinary Tract Infection: Yes - PSYCHIATRIC Hx Substance Use: No - SURGICAL HISTORY Hx Surgeries: Yes Hx Herniorrhaphy: Yes (2010) Hx Vascular Surgery: Yes Other/Comment: Vena Cava Filter on R groin for DVT L Leg in 2009. Mar 2015 R leg clot. 2009 L leg clot - ANESTHESIA Hx Anesthesia: Yes Hx Anesthesia Reactions: No Hx Malignant Hyperthermia: No Meds Allergies/Adverse Reactions: Allergies Allergy/AdvReac Type Severity Reaction Status Date / Time penicillin V Allergy Severe ANAPHYLAXIS Verified 10/01/16 18:31 Physical Exam - Constitutional Appears: No Acute Distress - Head Exam Head Exam: NORMAL INSPECTION - Eye Exam Eye Exam: Normal appearance Pupil Exam: NORMAL ACCOMODATION - ENT Exam ENT Exam: Normal Exam - Neck Exam Neck exam: Positive for: Normal Inspection - Respiratory Exam Respiratory Exam: Decreased Breath Sounds - Cardiovascular Exam Cardiovascular Exam: REGULAR RHYTHM - GI/Abdominal Exam GI & Abdominal Exam: Hyperactive Bowel Sounds - Rectal Exam Rectal Exam: Deferred - Exam Exam: NORMAL INSPECTION - Extremities Exam Extremities exam: Positive for: joint swelling - Back Exam Back exam: NORMAL INSPECTION - Neurological Exam Neurological exam: Oriented x3 - Psychiatric Exam Psychiatric exam: Depressed Results - Vital Signs Recent Vital Signs: Last Vital Signs Temp 97.5 F L 10/02/16 09:00 Pulse 84 10/02/16 09:00 Resp 20 10/02/16 09:00 BP 106/70 10/02/16 09:00 Pulse Ox 97 10/02/16 09:00 - Labs Result Diagrams: 10/01/16 19:35 10/01/16 19:35 Assessment & Plan (1) Blister of abdominal wall with infection Status: Acute (2) Cellulitis of abdominal wall Status: Acute (3) Arthritis Status: Acute (4) Degenerative joint disease Status: Acute Priority: Medium (5) Obesity Status: Chronic Priority: Medium
[2016-10-03] MEDS: Enoxaparin 30 mg Syringe SC SCH (09:40)
[2016-10-03] MEDS: Pantoprazole 40 mg EC Tab PO SCH (09:41)
[2016-10-03] MEDS: Vancomycin 500mg/D5W 100 ml 500 MG/100 ML BAG IVPB SCH ×2 (09:42→21:21)
[2016-10-03] MEDS: FERROUS FUMARATE 50 MG PO SCH ×3 (10:00→17:55)
--- NOTE | 2016-10-03 22:21 | CP.PCM.PN ---
Subjective - Date & Time of Evaluation Date of Evaluation: 10/03/16 Time of Evaluation: 13:15 - Subjective Subjective: Patient alert and responsive. Lower abdominal area and panus severely inflammed. He is tolerating vancomycin. Ketocanazole cream ordered as a topical for the infection. Objective - Vital Signs/Intake and Output Vital Signs (last 24 hours): Temp Pulse Resp BP Pulse Ox 97.4 F L 90 20 104/71 95 10/03/16 15:15 10/03/16 15:15 10/03/16 15:15 10/03/16 15:15 10/03/16 15:15 Intake and Output: 10/03/16 10/04/16 18:59 06:59 Intake Total 500 Balance 500 - Medications Medications: Current Medications Allopurinol (Zyloprim) 100 mg PO DAILY [facility] Last Admin: 10/03/16 09:40 Dose: 100 mg Enalapril Maleate (Vasotec) 5 mg PO DAILY [facility] Last Admin: 10/03/16 09:42 Dose: 5 mg Enoxaparin Sodium (Lovenox) 30 mg SC DAILY [facility] Last Admin: 10/03/16 09:40 Dose: 30 mg Ferrous Fumarate (Bruna-Sequel) 50 mg PO TID [facility] Last Admin: 10/03/16 17:55 Dose: 50 mg Vancomycin HCl/Dextrose (Vancocin) 500 mg in 100 mls @ 100 mls/hr IVPB Q12H [facility] Stop: 10/06/16 20:16 Last Admin: 10/03/16 21:21 Dose: 100 mls/hr Ibuprofen (Motrin Tab) 600 mg PO TID [facility] Last Admin: 10/03/16 21:48 Dose: 600 mg Ketoconazole (Nizoral) 0 gm TOP BID [facility] Last Admin: 10/03/16 17:57 Dose: 1 applic Pantoprazole Sodium (Protonix Ec Tab) 40 mg PO DAILY [facility] Last Admin: 10/03/16 09:41 Dose: 40 mg - Constitutional Appears: No Acute Distress - Eye Exam Eye Exam: Normal appearance Pupil Exam: NORMAL ACCOMODATION - ENT Exam ENT Exam: Normal Exam - Neck Exam Neck Exam: Normal Inspection - Respiratory Exam Respiratory Exam: Decreased Breath Sounds - Cardiovascular Exam Cardiovascular Exam: REGULAR RHYTHM - GI/Abdominal Exam GI & Abdominal Exam: Normal Bowel Sounds - Rectal Exam Rectal Exam: Deferred - Exam Exam: NORMAL INSPECTION - Extremities Exam Extremities Exam: Joint Swelling - Back Exam Back Exam: NORMAL INSPECTION - Neurological Exam Neurological Exam: Oriented x3 - Psychiatric Exam Psychiatric exam: Depressed - Skin Skin Exam: Erythema Assessment and Plan (1) Blister of abdominal wall with infection Status: Acute (2) Cellulitis of abdominal wall Status: Acute (3) Arthritis Status: Acute (4) Degenerative joint disease Status: Acute (5) Obesity Status: Chronic
[2016-10-04] MEDS: Vancomycin 500mg/D5W 100 ml 500 MG/100 ML BAG IVPB SCH ×2 (09:01→20:45)
--- NOTE | 2016-10-04 09:01 | RAD ---
Chest x-ray two views History: Hypertension. Comparison: 08/30/2016 Findings: Mild venous congestion. Mild right hilar prominence. Tortuous aorta. Degenerative changes in the spine and shoulders. Mild cardiomegaly. Small nodular density at the right lung base may represent confluence of shadows with ribs and vessels versus nipple shadow versus additional etiology. Degenerative changes in the spine. Impression: Small nodular density at the right lung base may represent confluence of shadows with ribs and vessels versus nipple shadow versus additional etiology. Interval followup may be helpful if clinically indicated. Mild venous congestion. Mild right hilar prominence. Tortuous aorta. Degenerative changes in the spine and shoulders. Mild cardiomegaly.
[2016-10-04] MEDS: FERROUS FUMARATE 50 MG PO SCH ×3 (11:00→17:37)
[2016-10-04] MEDS: Pantoprazole 40 mg EC Tab PO SCH (11:00)
[2016-10-04] MEDS: Enoxaparin 30 mg Syringe SC SCH (11:01)
--- NOTE | 2016-10-05 07:42 | CON ---
DATE: 10/03/2016 to see this patient a smoker with a past history of hypertension, hypertensive cardiovasc ular disease, arthritis, obesity, . He is not in acute painful with swelling and redness and he felt feverish yesterday. no chills or . He is also being treated for . The re is no dizziness and no falls, no history of seizures. No hemoptysis or vomiting. SOCIAL HISTORY: He is a nonsmoker, does not drink alcohol. ALLERGIES: PENICILLIN. PAST MEDICAL HISTORY: Includes obesity, gastroesophageal reflux disease, arthritis history of _ ____. Sudarshan Delong MD cc: [id number] TT: 10/03/2016 17:08:11 Confirmation # [id number] Dictation # [id number] mn
--- NOTE | 2016-10-05 07:42 | PN ---
DATE: 10/04/2016 The patient is alert, oriented. VITAL SIGNS: Afebrile, blood pressure /80, pulse is 77, respirations 20, hemoglobin oxygen satu ration of 99%. He is not in distress decreased. PHYSICAL EXAMINATION: HEART: Regular, no gallop rhythm. LUNGS: Diminished breath sounds over lung bases, no rhonchi. ABDOMEN: Soft in the lower abdomen with dermatosis. EXTREMITIES: Legs, edema subsided. Chest x-ray shows mild pulmonary venous congestion with mild vascular prominence. His white co unt is 13,000, hemoglobin is 12.7, platelet count 364,000. IMPRESSION: Respiratory insufficiency, hypertensive cardiovascular disease, skin dermatosis, sepsis, arthritis, remote history of deep venous thrombosis, gastroesophageal reflux, obesity. PLAN: To continue the current management. He can have 1 dose of Lasix treat pulmonary venous congestion and repeat white count and metabolic panel. Sudarshan Delong MD cc: [id number] TT: 10/04/2016 14:41:28 Confirmation # [id number] Dictation # [id number]
[2016-10-05 08:12] LABS: BASO # 0.1 K/uL (0.0-0.2); BASO % 1.3 % (0.0-2.0); EOS # 0.2 K/uL (0.0-0.7); EOS % 2.8 % (0.0-4.0); HEMATOCRIT 35.2 % (35.0-51.0); LYMPH # 1.4 K/uL (1.0-4.3); LYMPH % 20.5 % (20.0-40.0); MEAN CELL VOLUME 85.7 fL (80.0-94.0); MEAN CORPUSCULAR HEMOGLOBIN 28.7 pg (27.0-31.0); MEAN CORPUSCULAR HGB CONC 33.5 g/dL (33.0-37.0); MEAN PLATELET VOLUME 7.6 fL (7.2-11.7); MONO # 0.5 K/uL (0.0-0.8); MONO % 7.8 % (0.0-10.0); NRBC % 0.1 % (0.0-2.0); WHITE BLOOD COUNT 6.6 K/uL (4.8-10.8)
[2016-10-05 08:21] LABS: CHLORIDE 99 mmol/L (98-107)
[2016-10-05 08:22] LABS: POTASSIUM 4.3 mmol/L (3.6-5.2); SODIUM 139 mmol/L (132-148)
[2016-10-05 08:24] LABS: GFR AFRICAN-AMERICAN > 60
[2016-10-05 08:25] LABS: BLOOD UREA NITROGEN 15 mg/dL (9-20); CALCIUM 8.4 mg/dl (8.6-10.4); CARBON DIOXIDE 30 mmol/L (22-30); GLUCOSE,RANDOM 94 mg/dL (75-110)
[2016-10-05] MEDS: Pantoprazole 40 mg EC Tab PO SCH (09:19)
[2016-10-05] MEDS: Enoxaparin 30 mg Syringe SC SCH (09:20)
[2016-10-05] MEDS: Vancomycin 500mg/D5W 100 ml 500 MG/100 ML BAG IVPB SCH ×2 (09:26→20:43)
[2016-10-05] MEDS: FERROUS FUMARATE 50 MG PO SCH ×3 (10:28→17:38)
--- NOTE | 2016-10-05 14:32 | PN ---
DATE: 10/05/2016 PHYSICAL EXAMINATION: GENERAL: The patient is alert, oriented. VITAL SIGNS: He is afebrile with blood pressure of 110/76, pulse 82, respiration 19, hemoglobin oxyg en saturation of 97%. His dyspnea has decreased. He had 1 dose of Lasix IV. His pain is easier. HEART: Regular with no gallop rhythm. LUNGS: Diminished breath sounds over lung bases. No rhonchi. ABDOMEN: Soft. LEGS: Edema subsided. LABORATORY DATA: His white count now is 6600, hemoglobin 11.8, platelet count 407,000. Sodium 139, potassium 4.3, chloride 99, BUN 15, creatinine 1. IMPRESSION: Respiratory insufficiency, bronchitis, hypertensive cardiovascular disease, arthritis, s epsis, diverticulosis, gastroesophageal reflux. PLAN: To continue with the current regimen. Discussed with the PMD. Sudarshan Delong MD cc: [id number] TT: 10/05/2016 14:31:21 Confirmation # [id number] Dictation # [id number] mn
--- NOTE | 2016-10-05 22:45 | CP.PCM.PN ---
Subjective - Date & Time of Evaluation Date of Evaluation: 10/05/16 Time of Evaluation: 13:15 - Subjective Subjective: Abdominal infection mildly improved. Patient tolerating vancomycin. Lung nodule on chest xray. CT scan of the chest requested. Objective - Vital Signs/Intake and Output Vital Signs (last 24 hours): Temp Pulse Resp BP Pulse Ox 97.7 F 81 20 111/74 97 10/05/16 15:00 10/05/16 15:00 10/05/16 15:00 10/05/16 15:00 10/05/16 15:00 Intake and Output: 10/05/16 10/06/16 18:59 06:59 Intake Total 600 Balance 600 - Medications Medications: Current Medications Allopurinol (Zyloprim) 100 mg PO DAILY [facility] Last Admin: 10/05/16 09:20 Dose: 100 mg Enalapril Maleate (Vasotec) 5 mg PO DAILY [facility] Last Admin: 10/05/16 09:19 Dose: 5 mg Enoxaparin Sodium (Lovenox) 30 mg SC DAILY [facility] Last Admin: 10/05/16 09:20 Dose: 30 mg Ferrous Fumarate (Bruna-Sequel) 50 mg PO TID [facility] Last Admin: 10/05/16 17:38 Dose: 50 mg Vancomycin HCl/Dextrose (Vancocin) 500 mg in 100 mls @ 100 mls/hr IVPB Q12H [facility] Stop: 10/06/16 20:16 Last Admin: 10/05/16 20:43 Dose: 100 mls/hr Ibuprofen (Motrin Tab) 600 mg PO TID [facility] Last Admin: 10/05/16 17:39 Dose: 600 mg Ketoconazole (Nizoral) 0 gm TOP BID [facility] Last Admin: 10/05/16 17:39 Dose: 1 applic Pantoprazole Sodium (Protonix Ec Tab) 40 mg PO DAILY [facility] Last Admin: 10/05/16 09:19 Dose: 40 mg - Labs Labs: 10/05/16 07:59 10/05/16 07:59 - Constitutional Appears: No Acute Distress - Head Exam Head Exam: NORMAL INSPECTION - Eye Exam Eye Exam: Normal appearance Pupil Exam: NORMAL ACCOMODATION - ENT Exam ENT Exam: Normal Exam - Neck Exam Neck Exam: Tenderness - Respiratory Exam Respiratory Exam: Decreased Breath Sounds - Cardiovascular Exam Cardiovascular Exam: REGULAR RHYTHM - GI/Abdominal Exam GI & Abdominal Exam: Hyperactive Bowel Sounds - Rectal Exam Rectal Exam: Deferred - Exam Exam: NORMAL INSPECTION - Extremities Exam Extremities Exam: Tenderness - Back Exam Back Exam: NORMAL INSPECTION - Neurological Exam Neurological Exam: Oriented x3 - Psychiatric Exam Psychiatric exam: Depressed - Skin Skin Exam: Dry Assessment and Plan (1) Blister of abdominal wall with infection Status: Acute (2) Cellulitis of abdominal wall Status: Acute (3) Arthritis Status: Acute (4) Degenerative joint disease Status: Acute (5) Obesity Status: Chronic
[2016-10-06] MEDS: Vancomycin 500mg/D5W 100 ml 500 MG/100 ML BAG IVPB SCH (09:44)
[2016-10-06] MEDS: Enoxaparin 30 mg Syringe SC SCH (09:45)
[2016-10-06] MEDS: Pantoprazole 40 mg EC Tab PO SCH (09:45)
[2016-10-06] MEDS: FERROUS FUMARATE 50 MG PO SCH ×3 (09:48→17:41)
--- NOTE | 2016-10-06 11:37 | RAD ---
PROCEDURE: Cervical Spine Radiographs. HISTORY: Pain. COMPARISON: 04/12/2013 FINDINGS: BONES: There is straightening to reversal the normal cervical lordosis - this is an interval change No fracture. Dens Intact. C5-C6 and lesser C7 anterior spondylosis with intervening disc space narrowing has progressed since the prior exam DISC SPACES: Narrowed as above SOFT TISSUES: No prevertebral soft tissue swelling. Anterior C6-7 corticated ossification/calcification consistent with a limbus vertebrae OTHER FINDINGS: Bilateral uncovertebral hypertrophy most pronounced bilaterally at C5-6 and progressive since the prior exam. Interstitial lung markings at each apex appear prominent if in a similar appearance IMPRESSION: Progressive cervical spondylosis and progressive degenerative disc disease. No interval fracture. Interval straightening to mild reversal -positioning and/or spasm
--- NOTE | 2016-10-06 23:13 | CP.PCM.PN ---
Subjective - Date & Time of Evaluation Date of Evaluation: 10/06/16 Time of Evaluation: 13:30 - Subjective Subjective: Abdominal and panus infection responding to antibiotic therapy. Xray of cervical spine reveals degenerative disc disease. Objective - Vital Signs/Intake and Output Vital Signs (last 24 hours): Temp Pulse Resp BP Pulse Ox 98.1 F 86 20 102/65 96 10/06/16 15:56 10/06/16 15:56 10/06/16 15:56 10/06/16 15:56 10/06/16 15:56 Intake and Output: 10/06/16 10/07/16 18:59 06:59 Intake Total 500 Balance 500 - Medications Medications: Current Medications Allopurinol (Zyloprim) 100 mg PO DAILY [facility] Last Admin: 10/06/16 09:48 Dose: 100 mg Enalapril Maleate (Vasotec) 5 mg PO DAILY [facility] Last Admin: 10/06/16 09:46 Dose: 5 mg Enoxaparin Sodium (Lovenox) 30 mg SC DAILY [facility] Last Admin: 10/06/16 09:45 Dose: 30 mg Ferrous Fumarate (Bruna-Sequel) 50 mg PO TID [facility] Last Admin: 10/06/16 17:41 Dose: 50 mg Vancomycin HCl 500 mg/ Sodium (Chloride) 100 mls @ 100 mls/hr IVPB Q12H [facility] Last Admin: 10/06/16 21:15 Dose: 100 mls/hr Ibuprofen (Motrin Tab) 600 mg PO TID [facility] Last Admin: 10/06/16 17:41 Dose: 600 mg Ketoconazole (Nizoral) 0 gm TOP BID [facility] Last Admin: 10/06/16 17:42 Dose: 1 applic Pantoprazole Sodium (Protonix Ec Tab) 40 mg PO DAILY [facility] Last Admin: 10/06/16 09:45 Dose: 40 mg - Labs Labs: 10/05/16 07:59 10/05/16 07:59 - Constitutional Appears: No Acute Distress - Head Exam Head Exam: NORMAL INSPECTION - Eye Exam Eye Exam: Normal appearance Pupil Exam: NORMAL ACCOMODATION - ENT Exam ENT Exam: Normal Oropharynx - Neck Exam Neck Exam: Normal Inspection - Respiratory Exam Respiratory Exam: Decreased Breath Sounds - Cardiovascular Exam Cardiovascular Exam: REGULAR RHYTHM - GI/Abdominal Exam GI & Abdominal Exam: Normal Bowel Sounds - Rectal Exam Rectal Exam: Deferred - Extremities Exam Extremities Exam: Joint Swelling - Back Exam Back Exam: NORMAL INSPECTION - Neurological Exam Neurological Exam: Oriented x3 - Psychiatric Exam Psychiatric exam: Normal Affect - Skin Skin Exam: Dry Assessment and Plan (1) Blister of abdominal wall with infection Status: Acute (2) Cellulitis of abdominal wall Status: Acute (3) Arthritis Status: Acute (4) Degenerative joint disease Status: Acute (5) Obesity Status: Chronic
[2016-10-07 06:14] LABS: BASO # 0.1 K/uL (0.0-0.2); BASO % 0.7 % (0.0-2.0); EOS # 0.2 K/uL (0.0-0.7); EOS % 2.2 % (0.0-4.0); HEMATOCRIT 36.3 % (35.0-51.0); LYMPH # 1.4 K/uL (1.0-4.3); LYMPH % 13.7 % (20.0-40.0); MEAN CELL VOLUME 85.3 fL (80.0-94.0); MEAN CORPUSCULAR HEMOGLOBIN 28.1 pg (27.0-31.0); MEAN CORPUSCULAR HGB CONC 32.9 g/dL (33.0-37.0); MEAN PLATELET VOLUME 7.3 fL (7.2-11.7); MONO # 0.8 K/uL (0.0-0.8); MONO % 8.1 % (0.0-10.0); RED CELL DISTRIBUTION WIDTH 15.5 % (11.5-14.5); WHITE BLOOD COUNT 10.1 K/uL (4.8-10.8)
[2016-10-07 06:33] LABS: CHLORIDE 100 mmol/L (98-107); POTASSIUM 4.4 mmol/L (3.6-5.2); SODIUM 137 mmol/L (132-148)
[2016-10-07 06:35] LABS: GFR AFRICAN-AMERICAN > 60
[2016-10-07 06:36] LABS: BLOOD UREA NITROGEN 16 mg/dL (9-20); CALCIUM 8.5 mg/dl (8.6-10.4); CARBON DIOXIDE 28 mmol/L (22-30); GLUCOSE,RANDOM 102 mg/dL (75-110)
[2016-10-07] MEDS: Pantoprazole 40 mg EC Tab PO SCH (10:36)
[2016-10-07] MEDS: Enoxaparin 30 mg Syringe SC SCH (10:36)
[2016-10-07] MEDS: FERROUS FUMARATE 50 MG PO SCH ×2 (10:38→13:35)
--- NOTE | 2016-10-07 12:45 | CT ---
PROCEDURE: CT Chest without contrast HISTORY: lung nodule COMPARISON: 08/30/2016 TECHNIQUE: Contiguous axial images were obtained through the chest without intravenous contrast enhancement. Sagittal and coronal reconstructions were performed. Radiation dose (DLP): 860.03 mGy-cm. This CT exam was performed using one or more of the following dose reduction techniques: Automated exposure control, adjustment of the mA and/or kV according to patient size, and/or use of iterative reconstruction technique. FINDINGS: LUNGS: No pulmonary infiltrate. 4 mm pleural-based nodule in left lower lobe likely pleural-based linear scar. This is seen on series 3, image 76 and is unchanged from prior examination. No followup required as per Fleischner society criteria. No other pulmonary mass identified. MEDIASTINUM: Unremarkable thoracic aorta. No aneurysm. Normal size heart. Coronary arterial calcification noted. No pericardial effusion. Main pulmonary artery unremarkable. No vascular congestion. No lymphadenopathy. PLEURA: No pleural fluid. No pneumothorax. BONES: No fracture. No destructive lesion. UPPER ABDOMEN: Few calcified gallstones identified within gallbladder lumen. OTHER FINDINGS: None. IMPRESSION: No significant pulmonary mass. No pulmonary infiltrate/ effusion. Cholelithiasis. No evidence of cholecystitis. Otherwise unremarkable.
--- NOTE | 2016-10-07 22:11 | CP.PCM.PN ---
Subjective - Date & Time of Evaluation Date of Evaluation: 10/07/16 Time of Evaluation: 13:15 - Subjective Subjective: Slow progress with control of severe infection of the pelvis and panus with vancomycin. Xray of cervical spine reveals C6-C7 disc degeneration. CT scan of the chest requested because of possible chest infiltrate. Objective - Vital Signs/Intake and Output Vital Signs (last 24 hours): Temp Pulse Resp BP Pulse Ox 98.2 F 84 19 105/69 98 10/07/16 15:00 10/07/16 15:00 10/07/16 15:00 10/07/16 15:00 10/07/16 15:00 Intake and Output: 10/07/16 10/08/16 18:59 06:59 Intake Total 400 Balance 400 - Medications Medications: Current Medications Allopurinol (Zyloprim) 100 mg PO DAILY [facility] Last Admin: 10/07/16 10:49 Dose: 100 mg Enalapril Maleate (Vasotec) 5 mg PO DAILY [facility] Last Admin: 10/07/16 10:35 Dose: 5 mg Enoxaparin Sodium (Lovenox) 30 mg SC DAILY [facility] Last Admin: 10/07/16 10:36 Dose: 30 mg Ferrous Sulfate (Feosol) 325 mg PO TID [facility] Last Admin: 10/07/16 21:25 Dose: 325 mg Vancomycin HCl 500 mg/ Sodium (Chloride) 100 mls @ 100 mls/hr IVPB Q12H [facility] Last Admin: 10/07/16 21:25 Dose: 100 mls/hr Ibuprofen (Motrin Tab) 600 mg PO TID [facility] Last Admin: 10/07/16 17:23 Dose: 600 mg Ketoconazole (Nizoral) 0 gm TOP BID [facility] Last Admin: 10/07/16 17:26 Dose: 1 applic Pantoprazole Sodium (Protonix Ec Tab) 40 mg PO DAILY [facility] Last Admin: 10/07/16 10:36 Dose: 40 mg - Labs Labs: 10/07/16 06:06 10/07/16 06:06 - Constitutional Appears: No Acute Distress - Head Exam Head Exam: NORMAL INSPECTION - Eye Exam Eye Exam: Normal appearance - ENT Exam ENT Exam: Normal Exam - Neck Exam Neck Exam: Normal Inspection - Respiratory Exam Respiratory Exam: Decreased Breath Sounds - Cardiovascular Exam Cardiovascular Exam: REGULAR RHYTHM - GI/Abdominal Exam GI & Abdominal Exam: Hyperactive Bowel Sounds - Rectal Exam Rectal Exam: Deferred - Exam Exam: NORMAL INSPECTION - Extremities Exam Extremities Exam: Tenderness - Back Exam Back Exam: NORMAL INSPECTION - Neurological Exam Neurological Exam: Oriented x3 - Psychiatric Exam Psychiatric exam: Normal Affect - Skin Skin Exam: Dry Assessment and Plan (1) Blister of abdominal wall with infection Status: Acute (2) Cellulitis of abdominal wall Status: Acute (3) Arthritis Status: Acute (4) Degenerative joint disease Status: Acute (5) Obesity Status: Chronic
[2016-10-08 01:27] VITALS: RESP 20
[2016-10-08] MEDS: Enoxaparin 30 mg Syringe SC SCH (10:43)
[2016-10-08] MEDS: Pantoprazole 40 mg EC Tab PO SCH (10:47)
--- NOTE | 2016-10-08 21:58 | CP.PCM.PN ---
Subjective - Date & Time of Evaluation Date of Evaluation: 10/08/16 Time of Evaluation: 15:40 - Subjective Subjective: Slow progress with panus infection. CT scan of the chest demonstrates no infiltrate, patient does have cholelithiasis. Continue present antibiotic therapy. Objective - Vital Signs/Intake and Output Vital Signs (last 24 hours): Temp Pulse Resp BP Pulse Ox 97.6 F 75 20 109/67 98 10/08/16 15:00 10/08/16 15:00 10/08/16 15:00 10/08/16 15:00 10/08/16 15:00 Intake and Output: 10/08/16 10/09/16 18:59 06:59 Intake Total 500 Balance 500 - Medications Medications: Current Medications Allopurinol (Zyloprim) 100 mg PO DAILY [facility] Last Admin: 10/08/16 10:48 Dose: 100 mg Enalapril Maleate (Vasotec) 5 mg PO DAILY [facility] Last Admin: 10/08/16 10:47 Dose: 5 mg Enoxaparin Sodium (Lovenox) 30 mg SC DAILY [facility] Last Admin: 10/08/16 10:43 Dose: 30 mg Ferrous Sulfate (Feosol) 325 mg PO TID [facility] Last Admin: 10/08/16 17:54 Dose: 325 mg Vancomycin HCl 500 mg/ Sodium (Chloride) 100 mls @ 100 mls/hr IVPB Q12H [facility] Last Admin: 10/08/16 08:50 Dose: 100 mls/hr Ibuprofen (Motrin Tab) 600 mg PO TID [facility] Last Admin: 10/08/16 17:54 Dose: 600 mg Ketoconazole (Nizoral) 0 gm TOP BID [facility] Last Admin: 10/08/16 17:57 Dose: 1 applic Pantoprazole Sodium (Protonix Ec Tab) 40 mg PO DAILY [facility] Last Admin: 10/08/16 10:47 Dose: 40 mg - Labs Labs: 10/07/16 06:06 10/07/16 06:06 - Constitutional Appears: No Acute Distress - Head Exam Head Exam: NORMAL INSPECTION - Eye Exam Eye Exam: Normal appearance Pupil Exam: NORMAL ACCOMODATION - ENT Exam ENT Exam: Normal Exam - Neck Exam Neck Exam: Normal Inspection - Respiratory Exam Respiratory Exam: Decreased Breath Sounds - Cardiovascular Exam Cardiovascular Exam: REGULAR RHYTHM - GI/Abdominal Exam GI & Abdominal Exam: Hyperactive Bowel Sounds - Rectal Exam Rectal Exam: Deferred - Exam Exam: NORMAL INSPECTION - Back Exam Back Exam: NORMAL INSPECTION - Neurological Exam Neurological Exam: Oriented x3 - Psychiatric Exam Psychiatric exam: Normal Mood - Skin Skin Exam: Dry Assessment and Plan (1) Blister of abdominal wall with infection Status: Acute (2) Cellulitis of abdominal wall Status: Acute (3) Arthritis Status: Acute (4) Degenerative joint disease Status: Acute (5) Obesity Status: Chronic
[2016-10-09] MEDS: Pantoprazole 40 mg EC Tab PO SCH (09:39)
[2016-10-09] MEDS: Enoxaparin 30 mg Syringe SC SCH (09:39)
--- NOTE | 2016-10-09 23:10 | CP.PCM.PN ---
Subjective - Date & Time of Evaluation Date of Evaluation: 10/09/16 Time of Evaluation: 16:50 - Subjective Subjective: Patient tolerating antibiotic therapy. Neck pain persists. Will order physical therapy. Objective - Vital Signs/Intake and Output Vital Signs (last 24 hours): Temp Pulse Resp BP Pulse Ox 98.3 F 81 20 100/68 94 L 10/09/16 15:00 10/09/16 15:00 10/09/16 15:00 10/09/16 15:00 10/09/16 15:00 Intake and Output: 10/09/16 10/10/16 18:59 06:59 Intake Total 580 500 Balance 580 500 - Medications Medications: Current Medications Allopurinol (Zyloprim) 100 mg PO DAILY [facility] Last Admin: 10/09/16 09:39 Dose: 100 mg Enalapril Maleate (Vasotec) 5 mg PO DAILY [facility] Last Admin: 10/09/16 09:39 Dose: 5 mg Ferrous Sulfate (Feosol) 325 mg PO TID [facility] Last Admin: 10/09/16 18:16 Dose: 325 mg Vancomycin HCl 500 mg/ Sodium (Chloride) 100 mls @ 100 mls/hr IVPB Q12H [facility] Last Admin: 10/09/16 21:22 Dose: 100 mls/hr Ibuprofen (Motrin Tab) 600 mg PO TID [facility] Last Admin: 10/09/16 18:17 Dose: 600 mg Ketoconazole (Nizoral) 0 gm TOP BID [facility] Last Admin: 10/09/16 18:20 Dose: 1 applic Pantoprazole Sodium (Protonix Ec Tab) 40 mg PO DAILY [facility] Last Admin: 10/09/16 09:39 Dose: 40 mg - Labs Labs: 10/07/16 06:06 10/07/16 06:06 - Constitutional Appears: No Acute Distress - Head Exam Head Exam: NORMOCEPHALIC - Eye Exam Eye Exam: Normal appearance - Cardiovascular Exam Cardiovascular Exam: REGULAR RHYTHM - GI/Abdominal Exam GI & Abdominal Exam: Normal Bowel Sounds - Exam Exam: NORMAL INSPECTION - Extremities Exam Extremities Exam: Joint Swelling Assessment and Plan (1) Blister of abdominal wall with infection Status: Acute (2) Cellulitis of abdominal wall Status: Acute (3) Arthritis Status: Acute (4) Degenerative joint disease Status: Acute (5) Obesity Status: Chronic
[2016-10-10 08:16] VITALS: BP 126/85; PULSE 77; TEMP 97.3; O2SAT 96
[2016-10-10] MEDS: Pantoprazole 40 mg EC Tab PO SCH (09:04)
[2016-10-10] MEDS ORDERED: Pneumococcal 23-Valent Vaccine IM ONE (14:42)
--- NOTE | 2016-10-10 15:16 | CP.PCM.PN ---
Subjective - Date & Time of Evaluation Date of Evaluation: 10/10/16 Time of Evaluation: 11:00 - Subjective Subjective: Alert, orientedx3, no acute distress. Objective - Vital Signs/Intake and Output Vital Signs (last 24 hours): Temp Pulse Resp BP Pulse Ox 97.3 F L 77 20 126/85 96 10/10/16 08:16 10/10/16 08:16 10/10/16 08:16 10/10/16 09:05 10/10/16 08:16 Intake and Output: 10/10/16 10/10/16 06:59 18:59 Intake Total 860 Balance 860 - Medications Medications: Current Medications Allopurinol (Zyloprim) 100 mg PO DAILY [facility] Last Admin: 10/10/16 09:04 Dose: 100 mg Enalapril Maleate (Vasotec) 5 mg PO DAILY [facility] Last Admin: 10/10/16 09:05 Dose: 5 mg Ferrous Sulfate (Feosol) 325 mg PO TID [facility] Last Admin: 10/10/16 14:00 Dose: 325 mg Vancomycin HCl 500 mg/ Sodium (Chloride) 100 mls @ 100 mls/hr IVPB Q12H [facility] Last Admin: 10/10/16 09:03 Dose: 100 mls/hr Ibuprofen (Motrin Tab) 600 mg PO TID [facility] Last Admin: 10/10/16 14:00 Dose: 600 mg Ketoconazole (Nizoral) 0 gm TOP BID [facility] Last Admin: 10/10/16 09:05 Dose: 1 applic Pantoprazole Sodium (Protonix Ec Tab) 40 mg PO DAILY [facility] Last Admin: 10/10/16 09:04 Dose: 40 mg - Labs Labs: 10/07/16 06:06 10/07/16 06:06 Assessment and Plan - Assessment and Plan (Free Text) Assessment: Patient is seen and examined. Alert, orientedx3, ambulating well. Rash on the abdominal cardenas improving. D/W DR Brown, plan to discharge home on po antibiotic x10 days along with skin care, apply ketaconazole ro the rash and follow up in 1 week in the office'.
--- NOTE | 2016-10-10 22:35 | CP.PCM.DIS ---
Provider - Provider Date of Admission: 10/01/16 20:22 Attending physician: Daquan Brown MD Time Spent in preparation of Discharge (in minutes): 26 Diagnosis - Discharge Diagnosis (1) Blister of abdominal wall with infection Status: Acute (2) Cellulitis of abdominal wall Status: Acute (3) Arthritis Status: Acute (4) Degenerative joint disease Status: Acute Priority: Medium (5) Obesity Status: Chronic Priority: Medium Hospital Course - Lab Results Lab Results: Most Recent Lab Values WBC 10.1 K/uL (4.8-10.8) D 10/07/16 06:06 RBC 4.26 Mil/uL (4.40-5.90) L 10/07/16 06:06 Hgb 12.0 g/dL (12.0-18.0) 10/07/16 06:06 Hct 36.3 % (35.0-51.0) 10/07/16 06:06 MCV 85.3 fL (80.0-94.0) 10/07/16 06:06 MCH 28.1 pg (27.0-31.0) 10/07/16 06:06 MCHC 32.9 g/dL (33.0-37.0) L 10/07/16 06:06 RDW 15.5 % (11.5-14.5) H 10/07/16 06:06 Plt Count 477 K/uL (130-400) H 10/07/16 06:06 MPV 7.3 fL (7.2-11.7) 10/07/16 06:06 Neut % (Auto) 75.3 % (50.0-75.0) H 10/07/16 06:06 Lymph % (Auto) 13.7 % (20.0-40.0) L 10/07/16 06:06 [place] % (Auto) 8.1 % (0.0-10.0) 10/07/16 06:06 Eos % (Auto) 2.2 % (0.0-4.0) 10/07/16 06:06 Baso % (Auto) 0.7 % (0.0-2.0) 10/07/16 06:06 Neut # 7.6 K/uL (1.8-7.0) H 10/07/16 06:06 Lymph # 1.4 K/uL (1.0-4.3) 10/07/16 06:06 [place] # 0.8 K/uL (0.0-0.8) 10/07/16 06:06 Eos # 0.2 K/uL (0.0-0.7) 10/07/16 06:06 Baso # 0.1 K/uL (0.0-0.2) 10/07/16 06:06 Neutrophils % (Manual) 80 % (50-75) H 10/01/16 19:35 Lymphocytes % (Manual) 11 % (20-40) L 10/01/16 19:35 Monocytes % (Manual) 9 % (0-10) 10/01/16 19:35 Platelet Estimate Normal (NORMAL) 10/01/16 19:35 Sodium 137 mmol/L (132-148) 10/07/16 06:06 Potassium 4.4 mmol/L (3.6-5.2) 10/07/16 06:06 Chloride 100 mmol/L (98-107) 10/07/16 06:06 Carbon Dioxide 28 mmol/L (22-30) 10/07/16 06:06 Anion Gap 13 (10-20) 10/07/16 06:06 BUN 16 mg/dL (9-20) 10/07/16 06:06 Creatinine 1.0 MG/DL (0.8-1.5) 10/07/16 06:06 Est GFR ( Amer) > 60 10/07/16 06:06 Est GFR (Non-Af Amer) > 60 10/07/16 06:06 Random Glucose 102 mg/dL (75-110) 10/07/16 06:06 Calcium 8.5 mg/dl (8.6-10.4) L 10/07/16 06:06 Total Bilirubin 1.0 mg/dL (0.2-1.3) 10/01/16 19:35 AST 15 U/L (17-59) L D 10/01/16 19:35 ALT 8 U/L (21-72) L D 10/01/16 19:35 Alkaline Phosphatase 57 U/L (38-126) 10/01/16 19:35 Total Protein 8.5 g/dL (6.3-8.3) H 10/01/16 19:35 Albumin 4.1 g/dL (3.5-5.0) 10/01/16 19:35 Globulin 4.4 gm/dL (2.2-3.9) H 10/01/16 19:35 Albumin/Globulin Ratio 0.9 (1.0-2.1) L 10/01/16 19:35 Vancomycin Peak 11.8 ug/mL (30.0-40.0) L 10/03/16 13:16 Vancomycin Trough 7.8 ug/mL (5.0-10.0) 10/03/16 04:00 Discharge Exam - Head Exam Head Exam: NORMOCEPHALIC - Eye Exam Eye Exam: Normal appearance Pupil Exam: NORMAL ACCOMODATION - ENT Exam ENT Exam: Normal Exam - Neck Exam Neck exam: Normal Inspection - Respiratory Exam Respiratory Exam: Decreased Breath Sounds - Cardiovascular Exam Cardiovascular Exam: REGULAR RHYTHM - GI/Abdominal Exam GI & Abdominal Exam: Hypoactive Bowel Sounds - Rectal Exam Rectal Exam: Deferred - Exam Exam: NORMAL INSPECTION - Extremities Exam Extremities exam: tenderness - Back Exam Back exam: vertebral tenderness - Neurological Exam Neurological exam: Oriented x3 - Psychiatric Exam Psychiatric exam: Depressed - Skin Skin Exam: Dry Discharge Plan - Discharge Medications Prescriptions: Doxycycline Monohydrate 100 mg PO BID #20 capsule Ketoconazole 2% Cr [Nizoral] 2 gm TOP BID #30 - Follow Up Plan Condition: STABLE Disposition: HOME/ ROUTINE Instructions: Doxycycline (By mouth), Ketoconazole (On the skin), Cellulitis ( DC) Referrals: Daquan Brown MD [Staff Provider] -
== END 2016-10-10 15:30 | disposition home or self-care (01) | DRG 603 ==
LOC: C.ER 18:19 → C.9E 20:22 → C.3T 21:02
PROVIDERS: ADMIT Internal Medicine; ATTEND Internal Medicine
DX: L03.311 Cellulitis of abdominal wall (principal); I11.9 Hypertensive heart disease without heart failure; E66.9 Obesity, unspecified; J40 Bronchitis, not specified as acute or chronic; K21.9 Gastro-esophageal reflux disease without esophagitis; K57.90 Diverticulosis of intestine, part unspecified, without perforation or abscess without bleeding; M19.90 Unspecified osteoarthritis, unspecified site; M50.30 Other cervical disc degeneration, unspecified cervical region; R26.81 Unsteadiness on feet; F17.200 Nicotine dependence, unspecified, uncomplicated; Z86.718 Personal history of other venous thrombosis and embolism; Z68.38 Body mass index [BMI] 38.0-38.9, adult; Z87.01 Personal history of pneumonia (recurrent); Z87.440 Personal history of urinary (tract) infections; Z86.14 Personal history of Methicillin resistant Staphylococcus aureus infection; Z88.0 Allergy status to penicillin; G47.30 Sleep apnea, unspecified

== ENCOUNTER 2016-11-21 20:25 | Inpatient (IN) | payer MEDICARE, OTHER ==
--- NOTE | 2016-11-21 22:18 | C.PDOC ---
History Of Present Illness Patient presents to the ER with a complaint of increased redness over the groin area and panus of his abdomen that has been worsening over the last few days. Patient was recently admitted for similar complaint; denies fever or chills. Time Seen by Provider: 11/21/16 22:18 Chief Complaint (Nursing): Abnormal Skin Integrity History Per: Patient History/Exam Limitations: no limitations Onset/Duration Of Symptoms: Days Current Symptoms Are (Timing): Still Present Location Of Injury: Anterior: Abdomen, Perineum (Groin) Quality Of Symptoms: Other (redness) Severity: Moderate Pain Scale Rating Of: 4 Recent travel outside of the [place]: No Past Medical History Reviewed: Historical Data, Nursing Documentation, Vital Signs Vital Signs: Last Vital Signs Temp 97.8 F 11/21/16 21:06 Pulse 86 11/21/16 21:06 Resp 17 11/21/16 21:06 BP 101/70 11/21/16 21:06 Pulse Ox 100 11/21/16 23:57 - Medical History PMH: Anemia, Arthritis, Asthma, Bronchitis, Deep Vein Thrombosis, Gastritis, HTN , Hypercholesterolemia, Kidney Stones, Peripheral Edema, Pneumonia, Sleep Apnea - [facility] Procedures CLOSURE SKIN & SUBCUTANEOUS NEC (12/01/12) INJECT STEROID (03/29/14) INJECT/INFUSE NEC (03/29/14) INJECTION INTO JOINT (03/29/14) INSERTION OF INFUSION DEV INTO SUP VENA CAVA, PERC APPROACH (11/15/15) INTRODUCTION OF OTH THERAP SUBST INTO MUSCLE, PERC APPROACH (10/07/15) REPAIR ABDOMINAL WALL, EXTERNAL APPROACH (10/07/15) TRANSFUSE NONAUT FROZEN PLASMA IN PERIPH VEIN, PERC (10/07/15) TRANSFUSE NONAUT RED BLOOD CELLS IN PERIPH VEIN, PERC (10/07/15) Family History: States: No Known Family Hx - Social History Hx Tobacco Use: No Hx Alcohol Use: Yes Hx Substance Use: No - Immunization History Hx Tetanus Toxoid Vaccination: No Hx Influenza Vaccination: Yes Hx Pneumococcal Vaccination: Yes Review Of Systems Constitutional: Negative for: Fever, Chills Skin: Positive for: Other (Redness) Physical Exam - Physical Exam Appears: Non-toxic Skin: Warm, Dry Oral Mucosa: Moist Chest: Symmetrical, No Tenderness Cardiovascular: Rhythm Regular, No Murmur Respiratory: No Rales, No Rhonchi, No Wheezing Gastrointestinal/Abdominal: Soft, No Tenderness, Other (Morbidly obese) Male Genital: Other (Redness to testicles) Extremity: Normal ROM (x4), Other (Redness to thighs) Neurological/Psych: Oriented x3 ED Course And Treatment - Laboratory Results Result Diagrams: 11/21/16 23:14 11/21/16 23:14 O2 Sat by Pulse Oximetry: 100 (Room air) Pulse Ox Interpretation: Normal Progress Note: Blood work ordered. Cleocin and vancomycin administered. Disposition Discussed With Dr.: Daquan Brown Comment: accepted the pt on his service adn took over the care at 11:56 PM Doctor Will See Patient In The: Hospital Counseled Patient/Family Regarding: Studies Performed, Diagnosis - Disposition Disposition: HOSPITALIZED Disposition Time: 22:18 Condition: FAIR - POA Present On Arrival: None - Clinical Impression Clinical Impression: Skin irritation, Cellulitis - Scribe Statement The provider has reviewed the documentation as recorded by the Scribchristina Gambino All medical record entries made by the Evetteibchristina were at my direction and personally dictated by me. I have reviewed the chart and agree that the record accurately reflects my personal performance of the history, physical exam, medical decision making, and the department course for this patient. I have also personally directed, reviewed, and agree with the discharge instructions and disposition. Decision To Admit - Pt Status Changed To: Hospital Disposition Of: Inpatient - Admit Certification Admit to Inpatient:: After my assessment, the patient will require hospitalization for at least two midnights. This is because of the severity of symptoms shown, intensity of services needed, and/or the medical risk in this patient being treated as an outpatient. - InPatient: Physician Admission Certification: I certify that this patient requires 2 or more midnights of care for the following reason:: After my assessment, the patient will require hospitalization for at least two midnights. This is because of the severity of symptoms shown, intensity of services needed, and/or the medical risk in this patient being treated as an outpatient. - . Bed Request Type: Regular Admitting Physician: Daquan Brown Patient Diagnosis: Skin irritation, Cellulitis
[2016-11-21] MEDS ORDERED: Sodium Chloride 0.9% 1,000 ML ONE (23:04)
[2016-11-21] MEDS: Sodium Chloride 0.9% 1,000 ML IV SCH (23:07)
[2016-11-21 23:17] LABS: BASO # 0.1 K/uL (0.0-0.2); BASO % 0.6 % (0.0-2.0); EOS # 0.1 K/uL (0.0-0.7); EOS % 1.2 % (0.0-4.0); HEMATOCRIT 38.4 % (35.0-51.0); LYMPH # 1.2 K/uL (1.0-4.3); LYMPH % 13.6 % (20.0-40.0); MEAN CELL VOLUME 85.5 fL (80.0-94.0); MEAN CORPUSCULAR HEMOGLOBIN 28.9 pg (27.0-31.0); MEAN CORPUSCULAR HGB CONC 33.9 g/dL (33.0-37.0); MEAN PLATELET VOLUME 8.2 fL (7.2-11.7); MONO # 0.7 K/uL (0.0-0.8); MONO % 8.3 % (0.0-10.0); WHITE BLOOD COUNT 9.1 K/uL (4.8-10.8)
[2016-11-21 23:23] LABS: RBC URINE 2 /hpf (0-3); URINE BACTERIA RARE (<OCC); URINE BILIRUBIN NEGATIVE (NEGATIVE); URINE BLOOD NEGATIVE (NEGATIVE); URINE COLOR Yellow (YELLOW); URINE GLUCOSE (UA) NORMAL (Normal); URINE KETONE NEGATIVE (NEGATIVE); URINE LEUKOCYTE ESTERASE NEG Leu/uL (Negative); URINE PROTEIN NEGATIVE (NEGATIVE); URINE UROBILINOGEN NORMAL mg/dL (0.2-1.0); WBC URINE 1 /hpf (0-5)
[2016-11-21 23:26] LABS: CHLORIDE 98 mmol/L (98-107); SODIUM 136 mmol/L (132-148)
[2016-11-21 23:27] LABS: POTASSIUM 5.8 mmol/L (3.6-5.2)
[2016-11-21 23:28] LABS: GFR AFRICAN-AMERICAN > 60
[2016-11-21 23:29] LABS: ALB/GLOB RATIO 0.9 (1.0-2.1); ALKALINE PHOSPHATASE 64 U/L (38-126); ALT/SGPT 7 U/L (21-72); AST/SGOT 32 U/L (17-59); BILIRUBIN,TOTAL 1.6 mg/dL (0.2-1.3); BLOOD UREA NITROGEN 22 mg/dL (9-20); CARBON DIOXIDE 23 mmol/L (22-30); GLUCOSE,RANDOM 96 mg/dL (75-110); TOTAL PROTEIN 8.9 g/dL (6.3-8.3)
[2016-11-21 23:42] LABS: VENOUS BLOOD GAS BASE EXCESS -3.8 mmol/L (0.0-2.0); VENOUS BLOOD GAS PCO2 48 mmHg (40-60); VENOUS BLOOD PH 7.29 (7.32-7.43)
[2016-11-21] MEDS ORDERED: Vancomycin 1 GM 1 GM/250 ML BAG IVPB ONE ×2 (23:45→23:59)
[2016-11-21] MEDS ORDERED: Clindamycin 300 MG in Sodium Chloride 0.9% 50 ML IVPB STA (23:50)
[2016-11-22 01:56] VITALS: RESP 20
[2016-11-22 07:35] LABS: BASO % 0.6 % (0.0-2.0); EOS # 0.2 K/uL (0.0-0.7); EOS % 2.8 % (0.0-4.0); HEMATOCRIT 32.9 % (35.0-51.0); LYMPH # 1.2 K/uL (1.0-4.3); LYMPH % 17.8 % (20.0-40.0); MEAN CELL VOLUME 84.5 fL (80.0-94.0); MEAN CORPUSCULAR HEMOGLOBIN 29.2 pg (27.0-31.0); MEAN CORPUSCULAR HGB CONC 34.5 g/dL (33.0-37.0); MEAN PLATELET VOLUME 7.9 fL (7.2-11.7); MONO # 0.6 K/uL (0.0-0.8); MONO % 9.4 % (0.0-10.0); RED CELL DISTRIBUTION WIDTH 15.6 % (11.5-14.5); WHITE BLOOD COUNT 6.9 K/uL (4.8-10.8)
[2016-11-22 07:52] LABS: CHLORIDE 105 mmol/L (98-107); SODIUM 142 mmol/L (132-148)
[2016-11-22 07:53] LABS: POTASSIUM 3.9 mmol/L (3.6-5.2)
[2016-11-22 07:55] LABS: ALB/GLOB RATIO 0.9 (1.0-2.1); ALKALINE PHOSPHATASE 47 U/L (38-126); ALT/SGPT 14 U/L (21-72); AST/SGOT 13 U/L (17-59); BILIRUBIN,TOTAL 0.6 mg/dL (0.2-1.3); BLOOD UREA NITROGEN 21 mg/dL (9-20); CARBON DIOXIDE 21 mmol/L (22-30); GFR AFRICAN-AMERICAN > 60; GLUCOSE,RANDOM 93 mg/dL (75-110); TOTAL PROTEIN 6.6 g/dL (6.3-8.3)
[2016-11-22 07:56] LABS: CALCIUM 8.3 mg/dl (8.6-10.4)
[2016-11-22] MEDS ORDERED: QUINAPRIL HCL 10 MG PO SCH (10:00)
[2016-11-22] MEDS ORDERED: NABUMETONE 750 MG PO SCH (10:00)
[2016-11-22] MEDS ORDERED: OMEPRAZOLE 40 MG PO SCH (10:00)
--- NOTE | 2016-11-22 10:24 | CP.PCM.HP ---
History of Present Illness - History of Present Illness History of Present Illness: 51 year old obese male comes to the [facility] ER complaining of diffused redness of the panus and lower abdomen. Patient was treated for a simular episode 5 weeks ago. Mr Marlene lovell suffers from hypertension, hyperlipidemia, thrombophlebitis, sleep apnea, degenerative joint disease and cellitis. Present on Admission - Present on Admission Any Indicators Present on Admission: No History of DVT/PE: Yes History of Uncontrolled Diabetes: No Urinary Catheter: No Decubitus Ulcer Present: No History Surgical Site Infection Following: None Review of Systems - Constitutional Constitutional: Sleep Apnea - Cardiovascular Cardiovascular: Dyspnea on Exertion - Respiratory Respiratory: Snoring - Gastrointestinal Gastrointestinal: Belching - Genitourinary Genitourinary: Urinary Frequency - Musculoskeletal Musculoskeletal: Arthralgias - Integumentary Integumentary: Erythema Past Patient History - Infectious Disease Hx of Infectious Diseases: None - Tetanus Immunizations Tetanus Immunization: Up to Date - Past Medical History & Family History Past Medical History?: Yes - Past Social History Smoking Status: Never Smoked Chewing Tobacco Use: No Cigar Use: No - CARDIAC Hx Cardiac Disorders: Yes Hx Hypercholesterolemia: Yes Hx Hypertension: Yes Hx Peripheral Edema: Yes - PULMONARY Hx Respiratory Disorders: Yes Hx Asthma: Yes Hx Bronchitis: Yes Hx Pneumonia: Yes Hx Sleep Apnea: Yes - NEUROLOGICAL Hx Neurological Disorder: No - HEENT Hx HEENT Problems: No - RENAL Hx Chronic Kidney Disease: Yes Hx Kidney Stones: Yes - ENDOCRINE/METABOLIC Hx Endocrine Disorders: No - HEMATOLOGICAL/ONCOLOGICAL Hx Blood Disorders: Yes Hx Anemia: Yes - INTEGUMENTARY Hx Dermatological Problems: No - MUSCULOSKELETAL/RHEUMATOLOGICAL Hx Musculoskeletal Disorders: Yes Hx Arthritis: Yes Hx Falls: No - GASTROINTESTINAL Hx Gastrointestinal Disorders: Yes Hx Gastritis: Yes - GENITOURINARY/GYNECOLOGICAL Hx Genitourinary Disorders: No Hx Urinary Tract Infection: Yes - PSYCHIATRIC Hx Psychophysiologic Disorder: No Hx Substance Use: No - SURGICAL HISTORY Hx Surgeries: Yes Hx Herniorrhaphy: Yes (2010) Hx Vascular Surgery: Yes Other/Comment: Vena Cava Filter on R groin for DVT L Leg in 2009. Mar 2015 R leg clot. 2009 L leg clot - ANESTHESIA Hx Anesthesia: Yes Hx Anesthesia Reactions: No Hx Malignant Hyperthermia: No Meds Allergies/Adverse Reactions: Allergies Allergy/AdvReac Type Severity Reaction Status Date / Time penicillin V Allergy Severe ANAPHYLAXIS Verified 11/21/16 21:04 Physical Exam - Constitutional Appears: Chronically Ill - Head Exam Head Exam: NORMOCEPHALIC - ENT Exam ENT Exam: Normal Exam - Neck Exam Neck exam: Positive for: Normal Inspection - Respiratory Exam Respiratory Exam: Decreased Breath Sounds - GI/Abdominal Exam GI & Abdominal Exam: Hyperactive Bowel Sounds - Rectal Exam Rectal Exam: Deferred - Exam Exam: NORMAL INSPECTION - Extremities Exam Extremities exam: Positive for: tenderness - Back Exam Back exam: NORMAL INSPECTION - Neurological Exam Neurological exam: Oriented x3 - Psychiatric Exam Psychiatric exam: Depressed - Skin Skin Exam: Erythema Results - Vital Signs Recent Vital Signs: Last Vital Signs Temp 98 F 11/22/16 08:35 Pulse 74 11/22/16 08:35 Resp 20 11/22/16 08:35 BP 105/69 11/22/16 08:35 Pulse Ox 97 11/22/16 08:35 - Labs Result Diagrams: 11/22/16 07:26 11/22/16 07:26 Labs: Laboratory Results - last 24 hr 11/22/16 11/22/16 07:26 07:26 WBC 6.9 RBC 3.90 L Hgb 11.4 L Hct 32.9 L MCV 84.5 MCH 29.2 MCHC 34.5 RDW 15.6 H Plt Count 260 MPV 7.9 Neut % (Auto) 69.4 Lymph % (Auto) 17.8 L [place] % (Auto) 9.4 Eos % (Auto) 2.8 Baso % (Auto) 0.6 Neut # 4.8 Lymph # 1.2 [place] # 0.6 Eos # 0.2 Baso # 0.0 Sodium 142 Potassium 3.9 Chloride 105 Carbon Dioxide 21 L Anion Gap 20 BUN 21 H Creatinine 1.2 Est GFR ( Amer) > 60 Est GFR (Non-Af Amer) > 60 Random Glucose 93 Calcium 8.3 L Total Bilirubin 0.6 AST 13 L D ALT 14 L D Alkaline Phosphatase 47 Total Protein 6.6 Albumin 3.2 L D Globulin 3.4 Albumin/Globulin Ratio 0.9 L Assessment & Plan (1) Sleep apnea Status: Acute (2) Cellulitis Status: Acute (3) Anemia Status: Acute Priority: Medium (4) Arthritis Status: Acute (5) Obesity Status: Chronic Priority: Medium
[2016-11-22] MEDS: Sodium Chloride 0.9% 1,000 ML IV SCH ×2 (11:26→19:00)
[2016-11-22] MEDS: Pantoprazole 40 mg EC Tab PO SCH (15:30)
[2016-11-23] MEDS: Sodium Chloride 0.9% 1,000 ML IV SCH ×2 (05:38→15:15)
[2016-11-23] MEDS: Pantoprazole 40 mg EC Tab PO SCH (10:02)
--- NOTE | 2016-11-23 22:53 | CP.PCM.PN ---
Subjective - Date & Time of Evaluation Date of Evaluation: 11/23/16 Time of Evaluation: 13:15 - Subjective Subjective: Patient responding to vancomycin therapy. Wound less inflamed. Mr Marlene concerned with anemia. Ferrous sulfate ordered. Will repeat Lab studies. Objective - Vital Signs/Intake and Output Vital Signs (last 24 hours): Temp Pulse Resp BP Pulse Ox 97 F L 71 20 111/78 99 11/23/16 08:58 11/23/16 16:00 11/23/16 16:00 11/23/16 16:00 11/23/16 16:00 Intake and Output: 11/23/16 11/24/16 18:59 06:59 Intake Total 1300 300 Output Total 600 Balance 700 300 - Medications Medications: Current Medications Allopurinol (Zyloprim) 100 mg PO DAILY [facility] Last Admin: 11/23/16 10:03 Dose: 100 mg Enalapril Maleate (Vasotec) 5 mg PO DAILY [facility] Last Admin: 11/23/16 10:02 Dose: 5 mg Ferrous Sulfate (Feosol) 325 mg PO DAILY [facility] Heparin Sodium (Porcine) (Heparin) 5,000 units SC Q12 [facility] Last Admin: 11/23/16 21:45 Dose: 5,000 units Sodium Chloride (Sodium Chloride 0.9%) 1,000 mls @ 100 mls/hr IV .Q10H [facility] Last Admin: 11/23/16 15:15 Dose: 100 mls/hr Vancomycin HCl 500 mg/ Sodium (Chloride) 100 mls @ 100 mls/hr IVPB Q12H [facility] Last Admin: 11/23/16 17:54 Dose: 100 mls/hr Ibuprofen (Motrin Tab) 600 mg PO TID [facility] Last Admin: 11/23/16 17:56 Dose: 600 mg Ketoconazole (Nizoral) 0 gm TOP BID [facility] Last Admin: 11/23/16 18:00 Dose: 1 applic Pantoprazole Sodium (Protonix Ec Tab) 40 mg PO DAILY [facility] Last Admin: 11/23/16 10:02 Dose: 40 mg - Labs Labs: 11/22/16 07:26 11/22/16 07:26 - Constitutional Appears: In Acute Distress - Head Exam Head Exam: NORMOCEPHALIC - Eye Exam Eye Exam: Normal appearance Pupil Exam: NORMAL ACCOMODATION - ENT Exam ENT Exam: Normal Exam - Neck Exam Neck Exam: Normal Inspection - Respiratory Exam Respiratory Exam: Decreased Breath Sounds - Cardiovascular Exam Cardiovascular Exam: REGULAR RHYTHM - GI/Abdominal Exam GI & Abdominal Exam: Hyperactive Bowel Sounds - Rectal Exam Rectal Exam: Deferred - Exam Exam: NORMAL INSPECTION - Extremities Exam Extremities Exam: Tenderness - Back Exam Back Exam: NORMAL INSPECTION - Neurological Exam Neurological Exam: Oriented x3 - Psychiatric Exam Psychiatric exam: Depressed - Skin Skin Exam: Dry Assessment and Plan (1) Sleep apnea Status: Acute (2) Cellulitis Status: Acute (3) Anemia Status: Acute (4) Arthritis Status: Acute (5) Obesity Status: Chronic
[2016-11-24 06:36] LABS: BASO # 0.1 K/uL (0.0-0.2); BASO % 0.9 % (0.0-2.0); EOS # 0.2 K/uL (0.0-0.7); EOS % 2.6 % (0.0-4.0); HEMATOCRIT 34.6 % (35.0-51.0); LYMPH # 1.3 K/uL (1.0-4.3); LYMPH % 17.8 % (20.0-40.0); MEAN CORPUSCULAR HEMOGLOBIN 29.3 pg (27.0-31.0); MEAN CORPUSCULAR HGB CONC 34.4 g/dL (33.0-37.0); MEAN PLATELET VOLUME 7.5 fL (7.2-11.7); MONO # 0.5 K/uL (0.0-0.8); MONO % 7.1 % (0.0-10.0); RED CELL DISTRIBUTION WIDTH 15.9 % (11.5-14.5)
[2016-11-24 06:49] LABS: POTASSIUM 4.1 mmol/L (3.6-5.2)
[2016-11-24] MEDS: Pantoprazole 40 mg EC Tab PO SCH (10:54)
[2016-11-24] MEDS: Albuterol 0.042% Inhal Sol (1.25 mg/3 mL) UD INH SCH ×2 (16:07→23:58)
--- NOTE | 2016-11-24 16:38 | RAD ---
HISTORY: bronchitis COMPARISON: CT thorax without contrast from 10/06/2016 TECHNIQUE: Chest PA and lateral FINDINGS: LUNGS: The lungs are hyperinflated and there is peribronchial thickening with streaky opacities in both lungs. No lobar pneumonia. PLEURA: No significant pleural effusion identified. No pneumothorax apparent. CARDIOVASCULAR: Normal. OSSEOUS STRUCTURES: No significant abnormalities. VISUALIZED UPPER ABDOMEN: Normal. OTHER FINDINGS: None. IMPRESSION: No active pulmonary disease. COPD.
--- NOTE | 2016-11-24 22:28 | CP.PCM.PN ---
Subjective - Date & Time of Evaluation Date of Evaluation: 11/24/16 Time of Evaluation: 13:20 - Subjective Subjective: Patient alert and responsive. Mr Rosario feels better. He is afebrile and panus inflamation is improving. Continue IV antibiotic. Objective - Vital Signs/Intake and Output Vital Signs (last 24 hours): Temp Pulse Resp BP Pulse Ox 98.2 F 68 20 115/78 99 11/24/16 15:00 11/24/16 16:10 11/24/16 15:00 11/24/16 15:00 11/24/16 15:00 - Medications Medications: Current Medications Albuterol Sulfate (Albuterol 0.042% Inhal Leta (1.25mg/3ml) Ud) 1.25 mg INH RQ8 [facility] Last Admin: 11/24/16 16:07 Dose: 1.25 mg Allopurinol (Zyloprim) 100 mg PO DAILY [facility] Last Admin: 11/24/16 10:53 Dose: 100 mg Enalapril Maleate (Vasotec) 5 mg PO DAILY [facility] Last Admin: 11/24/16 10:53 Dose: 5 mg Ferrous Sulfate (Feosol) 325 mg PO DAILY [facility] Last Admin: 11/24/16 10:52 Dose: 325 mg Heparin Sodium (Porcine) (Heparin) 5,000 units SC Q12 [facility] Last Admin: 11/24/16 21:12 Dose: 5,000 units Vancomycin HCl 500 mg/ Sodium (Chloride) 100 mls @ 100 mls/hr IVPB Q12H [facility] Last Admin: 11/24/16 17:26 Dose: 100 mls/hr Ibuprofen (Motrin Tab) 600 mg PO TID [facility] Last Admin: 11/24/16 17:31 Dose: 600 mg Ketoconazole (Nizoral) 0 gm TOP BID [facility] Last Admin: 11/24/16 17:30 Dose: 1 applic Pantoprazole Sodium (Protonix Ec Tab) 40 mg PO DAILY [facility] Last Admin: 11/24/16 10:54 Dose: 40 mg - Labs Labs: 11/24/16 06:27 11/24/16 06:27 - Constitutional Appears: No Acute Distress - Head Exam Head Exam: NORMOCEPHALIC - Eye Exam Eye Exam: Normal appearance Pupil Exam: NORMAL ACCOMODATION - ENT Exam ENT Exam: Normal Exam - Neck Exam Neck Exam: Normal Inspection - Respiratory Exam Respiratory Exam: Decreased Breath Sounds - Cardiovascular Exam Cardiovascular Exam: REGULAR RHYTHM - GI/Abdominal Exam GI & Abdominal Exam: Normal Bowel Sounds - Rectal Exam Rectal Exam: Deferred - Exam Exam: NORMAL INSPECTION - Extremities Exam Extremities Exam: Tenderness - Back Exam Back Exam: NORMAL INSPECTION - Neurological Exam Neurological Exam: Oriented x3 - Psychiatric Exam Psychiatric exam: Depressed - Skin Skin Exam: Dry Assessment and Plan (1) Sleep apnea Status: Acute (2) Cellulitis Status: Acute (3) Anemia Status: Acute (4) Arthritis Status: Acute (5) Obesity Status: Chronic
[2016-11-25] MEDS: Albuterol 0.042% Inhal Sol (1.25 mg/3 mL) UD INH SCH ×2 (07:51→15:59)
[2016-11-25] MEDS: Pantoprazole 40 mg EC Tab PO SCH (10:01)
--- NOTE | 2016-11-25 22:50 | CP.PCM.PN ---
Subjective - Date & Time of Evaluation Date of Evaluation: 11/25/16 Time of Evaluation: 13:15 - Subjective Subjective: Patient continues to make progress. Responding to IV antibiotic and denies any shortness of breath or chest pain. Will begin discharge planing. Objective - Vital Signs/Intake and Output Vital Signs (last 24 hours): Temp Pulse Resp BP Pulse Ox 97.7 F 73 20 103/63 95 11/25/16 15:49 11/25/16 15:49 11/25/16 15:49 11/25/16 15:49 11/25/16 15:49 Intake and Output: 11/25/16 11/26/16 18:59 06:59 Intake Total 900 Balance 900 - Medications Medications: Current Medications Albuterol Sulfate (Albuterol 0.042% Inhal Leta (1.25mg/3ml) Ud) 1.25 mg INH RQ8 [facility] Last Admin: 11/25/16 15:59 Dose: Not Given Allopurinol (Zyloprim) 100 mg PO DAILY [facility] Last Admin: 11/25/16 10:01 Dose: 100 mg Enalapril Maleate (Vasotec) 5 mg PO DAILY [facility] Last Admin: 11/25/16 10:00 Dose: 5 mg Ferrous Sulfate (Feosol) 325 mg PO DAILY [facility] Last Admin: 11/25/16 10:02 Dose: 325 mg Vancomycin HCl 500 mg/ Sodium (Chloride) 100 mls @ 100 mls/hr IVPB Q12H [facility] Last Admin: 11/25/16 17:02 Dose: 100 mls/hr Ibuprofen (Motrin Tab) 600 mg PO TID [facility] Last Admin: 11/25/16 17:03 Dose: 600 mg Ketoconazole (Nizoral) 0 gm TOP BID [facility] Last Admin: 11/25/16 17:07 Dose: 1 applic Pantoprazole Sodium (Protonix Ec Tab) 40 mg PO DAILY [facility] Last Admin: 11/25/16 10:01 Dose: 40 mg - Labs Labs: 11/24/16 06:27 11/24/16 06:27 - Constitutional Appears: No Acute Distress - Head Exam Head Exam: NORMOCEPHALIC - Eye Exam Eye Exam: Normal appearance Pupil Exam: NORMAL ACCOMODATION - ENT Exam ENT Exam: Normal Exam - Neck Exam Neck Exam: Normal Inspection - Respiratory Exam Respiratory Exam: Decreased Breath Sounds - Cardiovascular Exam Cardiovascular Exam: REGULAR RHYTHM - GI/Abdominal Exam GI & Abdominal Exam: Hyperactive Bowel Sounds - Rectal Exam Rectal Exam: Deferred - Exam Exam: NORMAL INSPECTION - Extremities Exam Extremities Exam: Normal Inspection - Back Exam Back Exam: NORMAL INSPECTION - Neurological Exam Neurological Exam: Oriented x3 - Psychiatric Exam Psychiatric exam: Depressed - Skin Skin Exam: Dry Assessment and Plan (1) Sleep apnea Status: Acute (2) Cellulitis Status: Acute (3) Anemia Status: Acute (4) Arthritis Status: Acute (5) Obesity Status: Chronic
[2016-11-26] MEDS: Albuterol 0.042% Inhal Sol (1.25 mg/3 mL) UD INH SCH ×2 (00:30→08:06)
[2016-11-26 08:45] VITALS: PULSE 52; TEMP 97.7; O2SAT 98
[2016-11-26] MEDS: Pantoprazole 40 mg EC Tab PO SCH (10:29)
[2016-11-26 10:30] VITALS: BP 128/70
--- NOTE | 2016-11-26 14:39 | CP.PCM.PN ---
Subjective - Date & Time of Evaluation Date of Evaluation: 11/26/16 Time of Evaluation: 14:39 - Subjective Subjective: PT CLEARED FOR D/C PER DR. BANERJEE. RX FOR ABX GIVEN FOR [address] BANERJEE AND PT WILL F/U WITH HIM IN THE OFFICE WITHIN 1 WEEK. NO FURTHER ORDERS. PT AMBULATES WELL WITHOUT ASSISTANCE. Objective - Vital Signs/Intake and Output Vital Signs (last 24 hours): Temp Pulse Resp BP Pulse Ox 97.7 F 52 L 20 128/70 98 11/26/16 08:44 11/26/16 08:44 11/26/16 08:44 11/26/16 10:29 11/26/16 08:44 Intake and Output: 11/26/16 11/26/16 06:59 18:59 Intake Total 1600 800 Output Total 2900 1000 Balance -1300 -200 - Medications Medications: Current Medications Albuterol Sulfate (Albuterol 0.042% Inhal [place]a (1.25mg/3ml) Ud) 1.25 mg INH RQ8 [facility] Last Admin: 11/26/16 08:06 Dose: 1.25 mg Allopurinol (Zyloprim) 100 mg PO DAILY [facility] Last Admin: 11/26/16 10:29 Dose: 100 mg Enalapril Maleate (Vasotec) 5 mg PO DAILY [facility] Last Admin: 11/26/16 10:29 Dose: 5 mg Ferrous Sulfate (Feosol) 325 mg PO DAILY [facility] Last Admin: 11/26/16 10:28 Dose: 325 mg Vancomycin HCl 500 mg/ Sodium (Chloride) 100 mls @ 100 mls/hr IVPB Q12H [facility] Last Admin: 11/26/16 05:30 Dose: 100 mls/hr Ibuprofen (Motrin Tab) 600 mg PO TID [facility] Last Admin: 11/26/16 14:05 Dose: 600 mg Ketoconazole (Nizoral) 0 gm TOP BID [facility] Last Admin: 11/26/16 10:28 Dose: 1 applic Pantoprazole Sodium (Protonix Ec Tab) 40 mg PO DAILY [facility] Last Admin: 11/26/16 10:29 Dose: 40 mg - Labs Labs: 11/24/16 06:27 11/24/16 06:27
--- NOTE | 2016-11-26 23:40 | CP.PCM.DIS ---
Provider - Provider Date of Admission: 11/21/16 23:54 Attending physician: Daquan Brown MD Time Spent in preparation of Discharge (in minutes): 24 Diagnosis - Discharge Diagnosis (1) Sleep apnea Status: Acute (2) Cellulitis Status: Acute (3) Anemia Status: Acute Priority: Medium (4) Arthritis Status: Acute (5) Obesity Status: Chronic Priority: Medium Hospital Course - Lab Results Lab Results: Most Recent Lab Values WBC 7.0 K/uL (4.8-10.8) 11/24/16 06:27 RBC 4.08 Mil/uL (4.40-5.90) L 11/24/16 06:27 Hgb 11.9 g/dL (12.0-18.0) L 11/24/16 06:27 Hct 34.6 % (35.0-51.0) L 11/24/16 06:27 MCV 85.0 fL (80.0-94.0) 11/24/16 06: MCH 29.3 pg (27.0-31.0) 11/24/16 06: MCHC 34.4 g/dL (33.0-37.0) 11/24/16 06:27 RDW 15.9 % (11.5-14.5) H 11/24/16 06:27 Plt Count 339 K/uL (130-400) 11/24/16 06:27 MPV 7.5 fL (7.2-11.7) 11/24/16 06: Neut % (Auto) 71.6 % (50.0-75.0) 11/24/16 06: Lymph % (Auto) 17.8 % (20.0-40.0) L 11/24/16 06:27 [place] % (Auto) 7.1 % (0.0-10.0) 11/24/16 06: Eos % (Auto) 2.6 % (0.0-4.0) 11/24/16 06: Baso % (Auto) 0.9 % (0.0-2.0) 11/24/16 06:27 Neut # 5.0 K/uL (1.8-7.0) 11/24/16 06: Lymph # 1.3 K/uL (1.0-4.3) 11/24/16 06:27 [place] # 0.5 K/uL (0.0-0.8) 11/24/16 06:27 Eos # 0.2 K/uL (0.0-0.7) 11/24/16 06:27 Baso # 0.1 K/uL (0.0-0.2) 11/24/16 06:27 pO2 22 mm/Hg (30-55) L 11/21/16 23:33 VBG pH 7.29 (7.32-7.43) L 11/21/16 23:33 VBG pCO2 48 mmHg (40-60) 11/21/16 23:33 VBG HCO3 20.1 mmol/L 11/21/16 23:33 VBG Total CO2 24.6 mmol/L (22-28) 11/21/16 23:33 VBG O2 Sat (Calc) 37.6 % (40-65) L 11/21/16 23:33 VBG Base Excess -3.8 mmol/L (0.0-2.0) L 11/21/16 23:33 VBG Potassium 4.1 mmol/L (3.6-5.2) 11/21/16 23:33 Sodium 139.0 mmol/l (132-148) 11/21/16 23:33 Chloride 101.0 mmol/L (98-107) 11/21/16 23:33 Glucose 89 mg/dl (75-110) 11/21/16 23:33 Lactate 1.1 mmol/L (0.7-2.1) 11/21/16 23:33 Sodium 142 mmol/L (132-148) 11/24/16 06:27 Potassium 4.1 mmol/L (3.6-5.2) 11/24/16 06:27 Chloride 107 mmol/L (98-107) 11/24/16 06:27 Carbon Dioxide 23 mmol/L (22-30) 11/24/16 06:27 Anion Gap 20 (10-20) 11/22/16 07:26 BUN 14 mg/dL (9-20) 11/24/16 06:27 Creatinine 1.2 MG/DL (0.8-1.5) 11/22/16 07:26 Est GFR ( Amer) > 60 11/22/16 07:26 Est GFR (Non-Af Amer) > 60 11/22/16 07:26 Random Glucose 93 mg/dL (75-110) 11/22/16 07:26 Calcium 8.3 mg/dl (8.6-10.4) L 11/22/16 07:26 Total Bilirubin 0.6 mg/dL (0.2-1.3) 11/22/16 07:26 AST 13 U/L (17-59) L D 11/22/16 07:26 ALT 14 U/L (21-72) L D 11/22/16 07:26 Alkaline Phosphatase 47 U/L (38-126) 11/22/16 07:26 Total Protein 6.6 g/dL (6.3-8.3) 11/22/16 07:26 Albumin 3.2 g/dL (3.5-5.0) L D 11/22/16 07:26 Globulin 3.4 gm/dL (2.2-3.9) 11/22/16 07:26 Albumin/Globulin Ratio 0.9 (1.0-2.1) L 11/22/16 07:26 Venous Blood Potassium 4.1 mmol/L (3.6-5.2) 11/21/16 23:33 Urine Color Yellow (YELLOW) 11/21/16 23:15 Urine Clarity Clear (Clear) 11/21/16 23:15 Urine pH 5.0 (5.0-8.0) 11/21/16 23:15 Ur Specific [place] 1.014 (1.003-1.030) 11/21/16 23:15 Urine Protein Negative mg/dL (NEGATIVE) 11/21/16 23:15 Urine Glucose (UA) Normal mg/dL (Normal) 11/21/16 23:15 Urine Ketones Negative mg/dL (NEGATIVE) 11/21/16 23:15 Urine Blood Negative (NEGATIVE) 11/21/16 23:15 Urine Nitrate Negative (NEGATIVE) 11/21/16 23:15 Urine Bilirubin Negative (NEGATIVE) 11/21/16 23:15 Urine Urobilinogen Normal mg/dL (0.2-1.0) 11/21/16 23:15 Ur Leukocyte Esterase Neg Loi/uL (Negative) 11/21/16 23:15 Urine WBC (Auto) 1 /hpf (0-5) 11/21/16 23:15 Urine RBC (Auto) 2 /hpf (0-3) 11/21/16 23:15 Ur Squamous Epith Cells < 1 /hpf (0-5) 11/21/16 23:15 Urine Bacteria Rare (<OCC) 11/21/16 23:15 Vancomycin Trough 10.4 ug/mL (5.0-10.0) H 11/24/16 06:27 Discharge Exam - Head Exam Head Exam: NORMOCEPHALIC - Eye Exam Eye Exam: Normal appearance Pupil Exam: NORMAL ACCOMODATION - ENT Exam ENT Exam: Normal Exam - Neck Exam Neck exam: Normal Inspection - Respiratory Exam Respiratory Exam: Decreased Breath Sounds - Cardiovascular Exam Cardiovascular Exam: REGULAR RHYTHM - GI/Abdominal Exam GI & Abdominal Exam: Hyperactive Bowel Sounds - Rectal Exam Rectal Exam: Deferred - Exam Exam: NORMAL INSPECTION - Extremities Exam Extremities exam: tenderness - Back Exam Back exam: NORMAL INSPECTION - Neurological Exam Neurological exam: Oriented x3 - Skin Skin Exam: Dry Discharge Plan - Discharge Medications Prescriptions: Ciprofloxacin HCl [Cipro] 500 mg PO Q12 #14 tablet - Follow Up Plan Condition: FAIR Disposition: HOME/ ROUTINE Instructions: Cellulitis (DC), Cellulitis (GEN) Additional Instructions: FOLLOW UP WITH DR. BROWN IN THE OFFICE ON 11/30 SCHEDULED. CONTINUE YOUR MEDICATIONS USUAL. CONTINUE THE ANTIBIOTIC PRESCRIBED AND UNTIL COMPLETED. FOR FURTHER QUESTIONS, CONTACT DR. BROWN'S OFFICE. Referrals: Daquan Brown MD [Staff Provider] - Sudarshan Delong MD [Staff Provider] -
--- NOTE | 2016-12-09 08:20 | CARD ---
APPROVED REPORT EKG Measurement Heart [id number] NM [id number] <Conclusion> Normal sinus rhythm Normal ECG
== END 2016-11-26 14:53 | disposition home or self-care (01) | DRG 603 ==
LOC: SUPCPDRO 20:25 → C.ER 20:25 → C.9E 23:54 → C.3T 11-22 00:59
PROVIDERS: ADMIT Internal Medicine; ATTEND Internal Medicine
DX: L03.311 Cellulitis of abdominal wall (principal); I10 Essential (primary) hypertension; E78.5 Hyperlipidemia, unspecified; M19.90 Unspecified osteoarthritis, unspecified site; J45.909 Unspecified asthma, uncomplicated; G47.33 Obstructive sleep apnea (adult) (pediatric); K29.70 Gastritis, unspecified, without bleeding; D64.9 Anemia, unspecified; E66.9 Obesity, unspecified; Z86.718 Personal history of other venous thrombosis and embolism

== ENCOUNTER 2017-03-24 15:03 | Emergency (ER) | payer MEDICARE, OTHER ==
[2017-03-24 15:17] VITALS: BMI 40.8
[2017-03-24 15:22] VITALS: BP 106/74; PULSE 76; RESP 18; TEMP 97.4; O2SAT 96
--- NOTE | 2017-03-24 16:54 | C.PDOC ---
History Of Present Illness 51 year old male presents to the ER with a complaint of a chronic rash of the panniculus and chronic venoustasis ulcer to the left lower leg for the past 5 months. Patient reports he washes the ulcer with soap and water and applies bacitracin. He notes he lost a follow up with Dr. Diaz and Dr Brown. Denies fever, chills, weakness, or numbness. Time Seen by Provider: 03/24/17 16:11 Chief Complaint (Nursing): Abnormal Skin Integrity History Per: Patient History/Exam Limitations: no limitations Onset/Duration Of Symptoms: Days Current Symptoms Are (Timing): Still Present Location Of Injury: Left: Leg, Anterior: Abdomen Quality Of Symptoms: Other (Rash, Ulcer) Recent travel outside of the [place]: No Past Medical History Reviewed: Historical Data, Nursing Documentation, Vital Signs Vital Signs: Last Vital Signs Temp 97.4 F L 03/24/17 15:19 Pulse 76 03/24/17 15:19 Resp 18 03/24/17 15:19 BP 106/74 03/24/17 15:19 Pulse Ox 96 03/24/17 16:54 - Medical History PMH: Anemia, Arthritis, Asthma, Bronchitis, Deep Vein Thrombosis, Gastritis, HTN , Hypercholesterolemia, Kidney Stones, Peripheral Edema, Pneumonia, Chronic Kidney Disease, Sleep Apnea - [facility] Procedures CLOSURE SKIN & SUBCUTANEOUS NEC (12/01/12) INJECT STEROID (03/29/14) INJECT/INFUSE NEC (03/29/14) INJECTION INTO JOINT (03/29/14) INSERTION OF INFUSION DEV INTO SUP VENA CAVA, PERC APPROACH (11/15/15) INTRODUCTION OF OTH THERAP SUBST INTO MUSCLE, PERC APPROACH (10/07/15) REPAIR ABDOMINAL WALL, EXTERNAL APPROACH (10/07/15) TRANSFUSE NONAUT FROZEN PLASMA IN PERIPH VEIN, PERC (10/07/15) TRANSFUSE NONAUT RED BLOOD CELLS IN PERIPH VEIN, PERC (10/07/15) Family History: States: Unknown Family Hx - Social History Hx Tobacco Use: No Hx Alcohol Use: Yes (social) Hx Substance Use: No - Immunization History Hx Tetanus Toxoid Vaccination: No Hx Influenza Vaccination: Yes Hx Pneumococcal Vaccination: Yes Review Of Systems Constitutional: Negative for: Fever, Chills Skin: Positive for: Other (Chronic rash, Chronic ulcer) Neurological: Negative for: Weakness, Numbness Physical Exam - Physical Exam Appears: Non-toxic, No Acute Distress, Other (Morbidly obese, appears older than stated age) Skin: Warm, Dry, Other (Macerated wet erythema to panniculus, bilateral groins, and scrotum) Head: Atraumatic, Normacephalic Eye(s): bilateral: Normal Inspection Oral Mucosa: Moist Chest: Symmetrical, No Tenderness Cardiovascular: Rhythm Regular Respiratory: Normal Breath Sounds, No Rales, No Rhonchi, No Wheezing Gastrointestinal/Abdominal: Soft, No Tenderness Extremity: Other (4x3cm chronic superficial ulcer to left lower leg with surrounding stasis dermatitis. No Cellulitis. Obese lower extremities.) Pulses: Left Dorsalis Pedis: Normal, Right Dorsalis Pedis: Normal Neurological/Psych: Oriented x3, Normal Speech, Other (No focal deficits) ED Course And Treatment O2 Sat by Pulse Oximetry: 96 (Room air) Pulse Ox Interpretation: Normal Medical Decision Making Medical Decision Making: chronic L lower leg stasis ulcer x 5-6 months no acute infection now continue daily wound care and opt f/u w Dr. Diaz Intertrigo due to body habitus of abd panniculus daily hygiene educated and fungal powders reviewed Defer steroid creams as risks of Elicia's Syndrome in prolonged use. Disposition Doctor Will See Patient In The: Office Counseled Patient/Family Regarding: Studies Performed, Diagnosis - Disposition Referrals: Daquan Brown MD [Staff Provider] - Jason Diaz Jr., MD [Staff Provider] - Disposition: HOME/ ROUTINE Disposition Time: 16:53 Condition: GOOD Additional Instructions: continue daily wound cleaning and care as reviewed in our ED visit. Abdomen should be washed with soap and water daily and kept DRY. talc powders and anti-fungal powders twice a day. Follow-up with Dr Brown and Dr. Diaz- call to make appts. Prescriptions: Nystatin [Nystop Topical Powder] 15 applic TOP BID #1 bottle Instructions: Chronic Wound Care (ED), Stasis Dermatitis (ED), Skin Yeast Infection (ED) Forms: [employer] (Greek) - Clinical Impression Clinical Impression: Chronic cutaneous venous stasis ulcer, Cand[place] intertrigo - Scribe Statement The provider has reviewed the documentation as recorded by the Scribe Castillo Gambino All medical record entries made by the Scribe were at my direction and personally dictated by me. I have reviewed the chart and agree that the record accurately reflects my personal performance of the history, physical exam, medical decision making, and the department course for this patient. I have also personally directed, reviewed, and agree with the discharge instructions and disposition.
== END 2017-03-24 17:20 | disposition home or self-care (01) ==
LOC: C.ER 15:03
DX: I87.8 Other specified disorders of veins (principal); L97.829 Non-pressure chronic ulcer of other part of left lower leg with unspecified severity; B37.2 Candidiasis of skin and nail

== ENCOUNTER 2017-05-07 17:49 | Inpatient (IN) | payer MEDICARE, SELFPAY ==
[2017-05-07 17:49] VITALS: BMI 40.8
[2017-05-07 20:37] LABS: BASO # 0.1 K/uL (0.0-0.2); BASO % 0.9 % (0.0-2.0); EOS # 0.2 K/uL (0.0-0.7); EOS % 1.8 % (0.0-4.0); LYMPH # 1.3 K/uL (1.0-4.3); LYMPH % 13.4 % (20.0-40.0); MEAN CORPUSCULAR HEMOGLOBIN 30.1 pg (27.0-31.0); MEAN CORPUSCULAR HGB CONC 33.9 g/dL (33.0-37.0); MEAN PLATELET VOLUME 8.1 fL (7.2-11.7); MONO # 0.6 K/uL (0.0-0.8); MONO % 6.5 % (0.0-10.0); NEUT # 7.4 K/uL (1.8-7.0); NEUT % 77.4 % (50.0-75.0); RBC 4.68 Mil/uL (4.40-5.90); RED CELL DISTRIBUTION WIDTH 14.4 % (11.5-14.5); WHITE BLOOD COUNT 9.5 K/uL (4.8-10.8)
[2017-05-07 20:41] LABS: ALBUMIN 4.5 g/dL (3.5-5.0); ALT/SGPT 8 U/L (21-72); AST/SGOT 22 U/L (17-59); BLOOD UREA NITROGEN 24 mg/dL (9-20); CALCIUM 8.7 mg/dl (8.6-10.4); GFR AFRICAN-AMERICAN > 60; GFR NON-AFRICAN AMERICAN 59
[2017-05-07 20:43] LABS: HEMOGLOBIN 14.1 g/dL (12.0-18.0)
[2017-05-07 20:44] LABS: MEAN CELL VOLUME 88.6 fL (80.0-94.0)
[2017-05-07 20:46] LABS: ALB/GLOB RATIO 1.1 (1.0-2.1)
[2017-05-07] MEDS ORDERED: Sodium Chloride 0.9% 1,000 ML IV STA (21:13)
[2017-05-07] MEDS ORDERED: Sodium Chloride 0.9% 1,000 ML ONE (21:20)
--- NOTE | 2017-05-07 21:21 | C.PDOC ---
History Of Present Illness Pt c/o ulcers on his lower legs, L>R, that have been treated with courses of antibiotics by his PMD without any improvement. Time Seen by Provider: 05/07/17 19:48 Chief Complaint (Nursing): Abnormal Skin Integrity History Per: Patient Onset/Duration Of Symptoms: Days, Gradual Current Symptoms Are (Timing): Worse Location Of Injury: Right: Leg, Left: Leg Quality Of Symptoms: Painful, Swollen, Draining Severity: Moderate Additional History Per: Prior Records Past Medical History Reviewed: Historical Data, Nursing Documentation, Vital Signs Vital Signs: Last Vital Signs Temp 98.1 F 05/07/17 20:58 Pulse 88 05/07/17 20:58 Resp 18 05/07/17 20:58 BP 117/80 05/07/17 20:58 Pulse Ox 100 05/07/17 20:58 - Medical History PMH: Anemia, Arthritis, Asthma, Bronchitis, Deep Vein Thrombosis, Gastritis, HTN , Hypercholesterolemia, Kidney Stones, Peripheral Edema, Pneumonia, Chronic Kidney Disease, Sleep Apnea Other Surgeries: IVC filter - [facility] Procedures CLOSURE SKIN & SUBCUTANEOUS NEC (12/01/12) INJECT STEROID (03/29/14) INJECT/INFUSE NEC (03/29/14) INJECTION INTO JOINT (03/29/14) INSERTION OF INFUSION DEV INTO SUP VENA CAVA, PERC APPROACH (11/15/15) INTRODUCTION OF OTH THERAP SUBST INTO MUSCLE, PERC APPROACH (10/07/15) REPAIR ABDOMINAL WALL, EXTERNAL APPROACH (10/07/15) TRANSFUSE NONAUT FROZEN PLASMA IN PERIPH VEIN, PERC (10/07/15) TRANSFUSE NONAUT RED BLOOD CELLS IN PERIPH VEIN, PERC (10/07/15) Family History: States: Unknown Family Hx - Social History Hx Tobacco Use: No Hx Alcohol Use: Yes (social) Hx Substance Use: No - Immunization History Hx Tetanus Toxoid Vaccination: No Hx Influenza Vaccination: Yes Hx Pneumococcal Vaccination: Yes Review Of Systems Except As Marked, All Systems Reviewed And Found Negative. Constitutional: Negative for: Fever Cardiovascular: Negative for: Chest Pain Respiratory: Negative for: Shortness of Breath Gastrointestinal: Negative for: Vomiting, Abdominal Pain Genitourinary: Negative for: Dysuria Musculoskeletal: Positive for: Leg Pain. Negative for: Neck Pain, Back Pain Skin: Positive for: Rash Neurological: Negative for: Weakness, Numbness Physical Exam - Physical Exam Appears: No Acute Distress, Chronically Ill Skin: Warm Head: Atraumatic, Normacephalic Eye(s): bilateral: PERRL, EOMI Neck: Normal ROM, Supple Cardiovascular: Rhythm Regular Respiratory: Normal Breath Sounds, No Accessory Muscle Use Gastrointestinal/Abdominal: Soft, No Tenderness Back: No CVA Tenderness Extremity: Normal ROM, Pedal Edema, Other (Infected ulcers on b/l medial lower legs L>R, with tenderness, surrounding erythema/induration and drainage. ) Neurological/Psych: Oriented x3, Normal Motor, Normal Sensation ED Course And Treatment - Laboratory Results Result Diagrams: 05/07/17 20:25 05/07/17 20:25 Lab Interpretation: Abnormal Interpretation Of Abnormal: Elevated CRP O2 Sat by Pulse Oximetry: 100 Pulse Ox Interpretation: Normal Disposition Discussed With DrJoe: Daquan Brown Comment: He accepted pt on his service. Doctor Will See Patient In The: Hospital Counseled Patient/Family Regarding: Studies Performed, Diagnosis - Disposition Disposition: HOSPITALIZED Disposition Time: 21:25 Condition: FAIR - Clinical Impression Clinical Impression: Bilateral leg ulcer, Infected stasis ulcer of left lower extremity, Failure of outpatient treatment
[2017-05-07] MEDS ORDERED: Vancomycin 1 GM 1 GM/250 ML BAG IVPB STA (21:28)
[2017-05-07] MEDS ORDERED: Vancomycin 1 GM in Sodium Chloride 0.9% 200 ML IVPB STA (21:42)
--- NOTE | 2017-05-07 22:55 | CP.PCM.HP ---
History of Present Illness - History of Present Illness History of Present Illness: Patient reports to ER with bilateral large leg ulcerations with drainge and erythema. He is in severe pain and has difficulty ambulating. He has taken two courses of antibiotics with no improvement. Patient also has bilateral pedal edema. Mr Rosario also suffers from gout and he is severely obese. Present on Admission - Present on Admission Any Indicators Present on Admission: No History of DVT/PE: Yes History of Uncontrolled Diabetes: No Urinary Catheter: No Decubitus Ulcer Present: No History Surgical Site Infection Following: None Review of Systems - Review of Systems Systems not reviewed;Unavailable: Other (infected leg ulcers) - Constitutional Constitutional: Weight Gain - Cardiovascular Cardiovascular: Leg Edema, Leg Ulcers - Musculoskeletal Musculoskeletal: Arthralgias, Muscle Cramps Past Patient History - Infectious Disease Hx of Infectious Diseases: None - Tetanus Immunizations Tetanus Immunization: Up to Date - Past Medical History & Family History Past Medical History?: Yes - Past Social History Smoking Status: Never Smoked Chewing Tobacco Use: No Cigar Use: No Alcohol: Social Drugs: Denies Home Situation {Lives}: With Family - CARDIAC Hx Hypercholesterolemia: Yes Hx Hypertension: Yes Hx Peripheral Edema: Yes - PULMONARY Hx Asthma: Yes Hx Bronchitis: Yes Hx Pneumonia: Yes Hx Sleep Apnea: Yes - NEUROLOGICAL Hx Neurological Disorder: No - HEENT Hx HEENT Problems: No Hx Epistaxis: Yes - RENAL Hx Chronic Kidney Disease: Yes Hx Kidney Stones: Yes - ENDOCRINE/METABOLIC Hx Endocrine Disorders: No - HEMATOLOGICAL/ONCOLOGICAL Hx Anemia: Yes - INTEGUMENTARY Hx Dermatological Problems: No Hx Cellulitis: Yes - MUSCULOSKELETAL/RHEUMATOLOGICAL Hx Arthritis: Yes Hx Back Pain: Yes Hx Degenerative Joint Disease: Yes Hx Gout: Yes - GASTROINTESTINAL Hx Constipation: Yes Hx Gastritis: Yes - GENITOURINARY/GYNECOLOGICAL Hx Genitourinary Disorders: No Hx Urinary Tract Infection: Yes - PSYCHIATRIC Hx Substance Use: No - SURGICAL HISTORY Hx Surgeries: Yes Hx Arthroscopy: Yes Hx Herniorrhaphy: Yes (2010) Hx Vascular Surgery: Yes Other/Comment: Vena Cava Filter on R groin for DVT L Leg in 2009. Mar 2015 R leg clot. 2009 L leg clot - ANESTHESIA Hx Anesthesia: Yes Hx Anesthesia Reactions: No Hx Malignant Hyperthermia: No Meds Allergies/Adverse Reactions: Allergies Allergy/AdvReac Type Severity Reaction Status Date / Time Penicillins Allergy Severe ANAPHYLAXIS Verified 03/24/17 15:18 Physical Exam - Constitutional Appears: No Acute Distress - Head Exam Head Exam: NORMOCEPHALIC - Eye Exam Eye Exam: Normal appearance Pupil Exam: NORMAL ACCOMODATION - ENT Exam ENT Exam: Normal Exam - Neck Exam Neck exam: Positive for: Normal Inspection - Respiratory Exam Respiratory Exam: Decreased Breath Sounds - Cardiovascular Exam Cardiovascular Exam: REGULAR RHYTHM - GI/Abdominal Exam GI & Abdominal Exam: Hyperactive Bowel Sounds - Rectal Exam Rectal Exam: Deferred - Exam Exam: NORMAL INSPECTION - Extremities Exam Extremities exam: Positive for: pedal edema - Psychiatric Exam Psychiatric exam: Normal Affect - Skin Skin Exam: Dry Results - Vital Signs Recent Vital Signs: Last Vital Signs Temp 98.1 F 05/07/17 20:58 Pulse 88 05/07/17 20:58 Resp 18 05/07/17 20:58 BP 117/80 05/07/17 20:58 Pulse Ox 100 05/07/17 21:26 - Labs Result Diagrams: 05/07/17 20:25 05/07/17 20:25 Labs: Laboratory Results - last 24 hr 05/07/17 05/07/17 05/07/17 20:25 20:25 20:25 WBC 9.5 RBC 4.68 Hgb 14.1 D Hct 41.4 MCV 88.6 D MCH 30.1 MCHC 33.9 RDW 14.4 Plt Count 367 MPV 8.1 Neut % (Auto) 77.4 H Lymph % (Auto) 13.4 L [place] % (Auto) 6.5 Eos % (Auto) 1.8 Baso % (Auto) 0.9 Neut # 7.4 H Lymph # 1.3 [place] # 0.6 Eos # 0.2 Baso # 0.1 ESR 57 H PT 11.0 INR 1.0 APTT 30 Sodium 136 Potassium 4.3 Chloride 102 Carbon Dioxide 24 Anion Gap 14 BUN 24 H Creatinine 1.3 Est GFR ( Amer) > 60 Est GFR (Non-Af Amer) 59 Random Glucose 87 Calcium 8.7 Total Bilirubin 1.1 AST 22 ALT 8 L D Alkaline Phosphatase 71 C-React Prot High Sens Total Protein 8.8 H Albumin 4.5 Globulin 4.2 H Albumin/Globulin Ratio 1.1 05/07/17 20:25 WBC RBC Hgb Hct MCV MCH MCHC RDW Plt Count MPV Neut % (Auto) Lymph % (Auto) [place] % (Auto) Eos % (Auto) Baso % (Auto) Neut # Lymph # [place] # Eos # Baso # ESR PT INR APTT Sodium Potassium Chloride Carbon Dioxide Anion Gap BUN Creatinine Est GFR ( Amer) Est GFR (Non-Af Amer) Random Glucose Calcium Total Bilirubin AST ALT Alkaline Phosphatase C-React Prot High Sens 10.59 H Total Protein Albumin Globulin Albumin/Globulin Ratio Assessment & Plan (1) Gout Status: Acute (2) Bilateral leg ulcer Status: Acute (3) Failure of outpatient treatment Status: Acute (4) Arthritis Status: Acute (5) Sleep apnea Status: Acute (6) Obesity Status: Chronic Priority: Medium
--- NOTE | 2017-05-08 08:34 | RAD ---
Chest x-ray single frontal view History: Infiltrate. Comparison: 11/24/2016 Findings: Mild venous congestion. Mildly elevated right hemidiaphragm. Tortuous ectatic aorta. Degenerative changes in the spine. Mild cardiomegaly. Impression: Mild venous congestion.
[2017-05-08] MEDS: Pantoprazole 40 mg EC Tab PO SCH (09:50)
--- NOTE | 2017-05-08 10:42 | CP.PCM.CON ---
History of Present Illness - History of Present Illness History of Present Illness: Pt c/o ulcers on his lower legs, L>R, that have been treated with courses of antibiotics by his PMD without any improvement. - Medical History PMH: Anemia, Arthritis, Asthma, Bronchitis, Deep Vein Thrombosis, Gastritis, HTN , Hypercholesterolemia, Kidney Stones, Peripheral Edema, Pneumonia, Chronic Kidney Disease, Sleep Apnea Other Surgeries: IVC filter Review of Systems - Constitutional Constitutional: As Per HPI - EENT Eyes: absent: As Per HPI, Blind Spots, Blurred Vision, Change in Vision, Decreased Night Vision, Diplopia, Discharge, Dry Eye, Exophthalmos, Floaters, Irritation, Itchy Eyes, Loss of Peripheral Vision, Pain, Photophobia, Requires Corrective Lenses, Sees Flashes, Spots in Vision, Tunnel Vision, Other Visual Disturbances, Loss of Vision, Other Ears: absent: As Per HPI, Decreased Hearing, Ear Discharge, Ear Pain, Tinnitus, Abnormal Hearing, Disequilibrium, Dizziness, Other Nose/Mouth/Throat: absent: As Per HPI, Epistaxis, Nasal Congestion, Nasal Discharge, Nasal Obstruction, Nasal Trauma, Nose Pain, Post Nasal Drip, Sinus Pain, Sinus Pressure, Bleeding Gums, Change in Voice, Dental Pain, Dry Mouth, Dysphagia, Halitosis, Hoarsness, Lip Swelling, Mouth Lesions, Mouth Pain, Odynophagia, Sore Throat, Throat Swelling, Tongue Swelling, Facial Pain, Neck Pain, Neck Mass, Other - Cardiovascular Cardiovascular: absent: As Per HPI, Acrocyanosis, Chest Pain, Chest Pain at Rest , Chest Pain with Activity, Claudication, Diaphoresis, Dyspnea, Dyspnea on Exertion, Edema, Irregular Heart Rhythm, Pain Radiating to Arm/Neck/Jaw, Leg Edema, Leg Ulcers, Lightheadedness, Orthopnea, Palpitations, Paroxysmal Nocturnal Dyspnea, Pedal Edema, Radiating Pain, Rapid Heart Rate, Slow Heart Rate, Syncope, Other - Respiratory Respiratory: As Per HPI - Gastrointestinal Gastrointestinal: absent: As Per HPI, Abdominal Pain, Belching, Bloating, Change in Bowel Habits, Change in Stool Character, Coffee Ground Emesis, Constipation, Cramping, Diarrhea, Dyspepsia, Dysphagia, Early Satiety, Excessive Flatus, Fecal Incontinence, Heartburn, Hematemesis, Hematochezia, Loose Stools, Melena, Nausea, Odynophagia, Temesmus, Vomiting, Other - Genitourinary Genitourinary: absent: As Per HPI, Change in Urinary Stream, Difficulty Urinating, Dysuria, Flank Pain, Hematuria, Pyuria, Nocturia, Urinary Incontinence, Urinary Frequency, Urinary Hesitance, Urinary Urgency, Voiding Freq/Small Amts, Freq UTI, Hx Renal/Bladder Calculi, Hx /Renal Surgery, Bladder Distension, Other - Musculoskeletal Musculoskeletal: absent: As Per HPI, Abnormal Gait, Arthralgias, Atrophy, Back Pain, Deformity, Joint Swelling, Limited Range of Motion, Loss of Height, Muscle Cramps, Muscle Weakness, Myalgias, Neck Pain, Numbness, Radiating Pain into Limb, Stiffness, Tingling, Other - Integumentary Integumentary: As Per HPI - Neurological Neurological: absent: As Per HPI, Abnormal Gait, Abnormal Hearing, Abnormal Movements, Abnormal Speech, Behavioral Changes, Burning Sensations, Confusion, Convulsions, Disequilibrium, Dizziness, Numbness, Focal Weakness, Frequent Falls , Headaches, Lack of Coordination, Loss of Vision, Memory Loss, Paresthesias, Radicular Pain, Restless Legs, Sensory Deficit, Syncope, Tingling, Tremor, Vertigo, Weakness, Other Visual Disturbances, Other - Psychiatric Psychiatric: absent: As Per HPI, Abnormal Sleep Pattern, Anhedonia, Anxiety, Auditory Hallucinations, Behavioral Changes, Change in Appetite, Change in Libido, Confusion, Depression, Difficulty Concentrating, Hallucinations, Homicidal Ideation, Hopelessness, Irritability, Memory Loss, Mood Swings, Panic Attacks, Paranoia, Suicidal Ideation, Visual Hallucinations, Tactile Hallucinations, Other - Endocrine Endocrine: absent: As Per HPI, Change in Body Appearance, Change in Libido, Cold Intolorance, Deepening of Voice, Excessive Sweating, Fatigue, Flushing, Heat Intolorance, Increase in Ring/Shoe/Hat Size, Palpitations, Polydipsia, Polyphagia, Polyuria, Other - Hematologic/Lymphatic Hematologic: absent: As Per HPI, Easy Bleeding, Easy Bruising, Lymphadenopathy, Other Past Patient History - Infectious Disease Hx of Infectious Diseases: None - Tetanus Immunizations Tetanus Immunization: Up to Date - Past Medical History & Family History Past Medical History?: Yes - Past Social History Smoking Status: Never Smoked Chewing Tobacco Use: No Cigar Use: No Alcohol: Social Drugs: Denies Home Situation {Lives}: With Family - CARDIAC Hx Hypercholesterolemia: Yes Hx Hypertension: Yes Hx Peripheral Edema: Yes - PULMONARY Hx Asthma: Yes Hx Bronchitis: Yes Hx Pneumonia: Yes Hx Sleep Apnea: Yes - NEUROLOGICAL Hx Neurological Disorder: No - HEENT Hx HEENT Problems: No Hx Epistaxis: Yes - RENAL Hx Chronic Kidney Disease: Yes Hx Kidney Stones: Yes - ENDOCRINE/METABOLIC Hx Endocrine Disorders: No - HEMATOLOGICAL/ONCOLOGICAL Hx Anemia: Yes - INTEGUMENTARY Hx Dermatological Problems: No Hx Cellulitis: Yes - MUSCULOSKELETAL/RHEUMATOLOGICAL Hx Arthritis: Yes Hx Back Pain: Yes Hx Degenerative Joint Disease: Yes Hx Gout: Yes - GASTROINTESTINAL Hx Constipation: Yes Hx Gastritis: Yes - GENITOURINARY/GYNECOLOGICAL Hx Genitourinary Disorders: No Hx Urinary Tract Infection: Yes - PSYCHIATRIC Hx Substance Use: No - SURGICAL HISTORY Hx Surgeries: Yes Hx Arthroscopy: Yes Hx Herniorrhaphy: Yes (2010) Hx Vascular Surgery: Yes Other/Comment: Vena Cava Filter on R groin for DVT L Leg in 2009. Mar 2015 R leg clot. 2009 L leg clot - ANESTHESIA Hx Anesthesia: Yes Hx Anesthesia Reactions: No Hx Malignant Hyperthermia: No Meds Allergies/Adverse Reactions: Allergies Allergy/AdvReac Type Severity Reaction Status Date / Time Penicillins Allergy Severe ANAPHYLAXIS Verified 03/24/17 15:18 - Medications Medications: Current Medications Allopurinol (Zyloprim) 100 mg PO DAILY [facility] Last Admin: 05/08/17 09:50 Dose: 100 mg Enalapril Maleate (Vasotec) 5 mg PO DAILY [facility] Last Admin: 05/08/17 09:50 Dose: 5 mg Ferrous Gluconate (Fergon) 324 mg PO TID [facility] Heparin Sodium (Porcine) (Heparin) 5,000 units SC BID [facility] Last Admin: 05/08/17 09:49 Dose: 5,000 units Ibuprofen (Motrin Tab) 800 mg PO BID [facility] Nystatin (Nystop Topical Powder) 1 applic TOP BID [facility] Pantoprazole Sodium (Protonix Ec Tab) 40 mg PO DAILY [facility] Last Admin: 05/08/17 09:50 Dose: 40 mg Physical Exam - Constitutional Appears: Non-toxic, Chronically Ill - Head Exam Head Exam: NORMOCEPHALIC - Eye Exam Eye Exam: PERRL. absent: Scleral icterus - ENT Exam ENT Exam: Mucous Membranes Dry, Normal External Ear Exam - Neck Exam Neck exam: Negative for: Lymphadenopathy - Respiratory Exam Respiratory Exam: Decreased Breath Sounds - Cardiovascular Exam Cardiovascular Exam: REGULAR RHYTHM - GI/Abdominal Exam GI & Abdominal Exam: Diminished Bowel Sounds, Distended - Rectal Exam Rectal Exam: Deferred - Exam Exam: NORMAL INSPECTION - Extremities Exam Extremities exam: Positive for: pedal edema, tenderness, pedal pulses present. Negative for: calf tenderness - Back Exam Back exam: absent: CVA tenderness (L), CVA tenderness (R) - Neurological Exam Neurological exam: Alert, CN II-XII Intact, Oriented x3, Reflexes Normal - Psychiatric Exam Psychiatric exam: Normal Mood - Skin Skin Exam: Dry Results - Vital Signs Recent Vital Signs: Last Vital Signs Temp 97.2 F L 05/08/17 09:58 Pulse 71 05/08/17 09:58 Resp 18 05/08/17 09:58 BP 110/73 05/08/17 09:58 Pulse Ox 99 05/08/17 09:58 - Labs Result Diagrams: 05/10/17 07:33 05/10/17 07:33 Labs: Laboratory Results - last 24 hr 05/07/17 05/07/17 05/07/17 20:25 20:25 20:25 WBC 9.5 RBC 4.68 Hgb 14.1 D Hct 41.4 MCV 88.6 D MCH 30.1 MCHC 33.9 RDW 14.4 Plt Count 367 MPV 8.1 Neut % (Auto) 77.4 H Lymph % (Auto) 13.4 L [place] % (Auto) 6.5 Eos % (Auto) 1.8 Baso % (Auto) 0.9 Neut # 7.4 H Lymph # 1.3 [place] # 0.6 Eos # 0.2 Baso # 0.1 ESR 57 H PT 11.0 INR 1.0 APTT 30 Sodium 136 Potassium 4.3 Chloride 102 Carbon Dioxide 24 Anion Gap 14 BUN 24 H Creatinine 1.3 Est GFR ( Amer) > 60 Est GFR (Non-Af Amer) 59 Random Glucose 87 Calcium 8.7 Total Bilirubin 1.1 AST 22 ALT 8 L D Alkaline Phosphatase 71 C-React Prot High Sens Total Protein 8.8 H Albumin 4.5 Globulin 4.2 H Albumin/Globulin Ratio 1.1 05/07/17 20:25 WBC RBC Hgb Hct MCV MCH MCHC RDW Plt Count MPV Neut % (Auto) Lymph % (Auto) [place] % (Auto) Eos % (Auto) Baso % (Auto) Neut # Lymph # [place] # Eos # Baso # ESR PT INR APTT Sodium Potassium Chloride Carbon Dioxide Anion Gap BUN Creatinine Est GFR ( Amer) Est GFR (Non-Af Amer) Random Glucose Calcium Total Bilirubin AST ALT Alkaline Phosphatase C-React Prot High Sens 10.59 H Total Protein Albumin Globulin Albumin/Globulin Ratio Assessment & Plan (1) Bilateral leg ulcer Status: Acute (2) Cellulitis Status: Acute (3) Failure of outpatient treatment Status: Acute (4) Infected stasis ulcer of left lower extremity Status: Acute - Assessment and Plan (Free Text) Assessment: cont iv rx and wound care
--- NOTE | 2017-05-08 22:35 | CP.PCM.PN ---
Subjective - Date & Time of Evaluation Date of Evaluation: 05/08/17 Time of Evaluation: 15:40 - Subjective Subjective: Patient evaluated by Dr Yang. Presently on Vancomycin IV. Chest xray demonstrates venous congestion. Objective - Vital Signs/Intake and Output Vital Signs (last 24 hours): Temp Pulse Resp BP Pulse Ox 98 F 66 18 104/56 L 99 05/08/17 18:28 05/08/17 18:28 05/08/17 18:28 05/08/17 18:28 05/08/17 18:28 Intake and Output: 05/08/17 05/09/17 18:59 06:59 Intake Total 200 Balance 200 - Medications Medications: Current Medications Allopurinol (Zyloprim) 100 mg PO DAILY [facility] Last Admin: 05/08/17 09:50 Dose: 100 mg Enalapril Maleate (Vasotec) 5 mg PO DAILY [facility] Last Admin: 05/08/17 09:50 Dose: 5 mg Ferrous Gluconate (Fergon) 324 mg PO TID [facility] Last Admin: 05/08/17 20:03 Dose: 324 mg Heparin Sodium (Porcine) (Heparin) 5,000 units SC BID [facility] Last Admin: 05/08/17 20:06 Dose: 5,000 units Vancomycin HCl 1,000 mg/ (Sodium Chloride) 200 mls @ 100 mls/hr IVPB Q12H [facility] Last Admin: 05/08/17 17:19 Dose: 100 mls/hr Ibuprofen (Motrin Tab) 800 mg PO BID [facility] Last Admin: 05/08/17 20:04 Dose: 800 mg Nystatin (Nystop Topical Powder) 1 applic TOP BID [facility] Last Admin: 05/08/17 19:50 Dose: Not Given Pantoprazole Sodium (Protonix Ec Tab) 40 mg PO DAILY [facility] Last Admin: 05/08/17 09:50 Dose: 40 mg - Labs Labs: 05/07/17 20:25 05/07/17 20:25 PT 11.0 SECONDS (9.7-12.2) 05/07/17 20:25 INR 1.0 05/07/17 20:25 APTT 30 SECONDS (21-34) 05/07/17 20:25 - Constitutional Appears: No Acute Distress - Head Exam Head Exam: NORMAL INSPECTION - Eye Exam Eye Exam: Normal appearance - ENT Exam ENT Exam: Normal Exam - Neck Exam Neck Exam: Normal Inspection - Respiratory Exam Respiratory Exam: Decreased Breath Sounds - Cardiovascular Exam Cardiovascular Exam: REGULAR RHYTHM - GI/Abdominal Exam GI & Abdominal Exam: Hyperactive Bowel Sounds - Rectal Exam Rectal Exam: Deferred - Exam Exam: NORMAL INSPECTION - Extremities Exam Extremities Exam: Tenderness - Back Exam Back Exam: NORMAL INSPECTION - Neurological Exam Neurological Exam: Oriented x3 - Psychiatric Exam Psychiatric exam: Depressed - Skin Skin Exam: Dry Assessment and Plan (1) Gout Status: Acute (2) Bilateral leg ulcer Status: Acute (3) Failure of outpatient treatment Status: Acute (4) Arthritis Status: Acute (5) Sleep apnea Status: Acute (6) Obesity Status: Chronic
[2017-05-08 22:49] VITALS: RESP 20
[2017-05-09] MEDS: Pantoprazole 40 mg EC Tab PO SCH (10:46)
--- NOTE | 2017-05-09 10:56 | CP.PCM.PN ---
Subjective - Date & Time of Evaluation Date of Evaluation: 05/09/17 Time of Evaluation: 09:00 - Subjective Subjective: severe cellulitis both legs with ulcer wound care in progress IV rx in progress Objective - Vital Signs/Intake and Output Vital Signs (last 24 hours): Temp Pulse Resp BP Pulse Ox 98 F 66 20 107/71 96 05/09/17 07:58 05/09/17 07:58 05/09/17 07:58 05/09/17 10:46 05/09/17 07:58 Intake and Output: 05/09/17 05/09/17 06:59 18:59 Intake Total 200 550 Balance 200 550 - Medications Medications: Current Medications Allopurinol (Zyloprim) 100 mg PO DAILY [facility] Last Admin: 05/09/17 10:45 Dose: 100 mg Enalapril Maleate (Vasotec) 5 mg PO DAILY [facility] Last Admin: 05/09/17 10:46 Dose: 5 mg Ferrous Gluconate (Fergon) 324 mg PO TID [facility] Last Admin: 05/09/17 10:43 Dose: 324 mg Heparin Sodium (Porcine) (Heparin) 5,000 units SC BID [facility] Last Admin: 05/09/17 10:45 Dose: 5,000 units Vancomycin HCl 1,000 mg/ (Sodium Chloride) 200 mls @ 100 mls/hr IVPB Q12H [facility] Last Admin: 05/09/17 00:00 Dose: 100 mls/hr Ibuprofen (Motrin Tab) 800 mg PO BID [facility] Last Admin: 05/09/17 10:43 Dose: 800 mg Nystatin (Nystop Topical Powder) 1 applic TOP BID [facility] Last Admin: 05/09/17 10:46 Dose: 1 applic Pantoprazole Sodium (Protonix Ec Tab) 40 mg PO DAILY [facility] Last Admin: 05/09/17 10:46 Dose: 40 mg Pneumococcal Polyvalent Vaccine (Pneumovax 23 Vaccine) 0.5 ml IM .ONCE ONE Stop: 05/10/17 10:01 - Labs Labs: 05/07/17 20:25 05/07/17 20:25 PT 11.0 SECONDS (9.7-12.2) 05/07/17 20:25 INR 1.0 05/07/17 20:25 APTT 30 SECONDS (21-34) 05/07/17 20:25 - Constitutional Appears: Non-toxic, Chronically Ill - Head Exam Head Exam: NORMOCEPHALIC - Eye Exam Eye Exam: PERRL - ENT Exam ENT Exam: Mucous Membranes Dry - Neck Exam Neck Exam: absent: Lymphadenopathy - Respiratory Exam Respiratory Exam: Decreased Breath Sounds - Cardiovascular Exam Cardiovascular Exam: REGULAR RHYTHM - GI/Abdominal Exam GI & Abdominal Exam: Distended, Soft - Rectal Exam Rectal Exam: Deferred - Exam Exam: NORMAL INSPECTION Assessment and Plan (1) Bilateral leg ulcer Status: Acute (2) Infected stasis ulcer of left lower extremity Status: Acute (3) Bilateral cellulitis of lower leg Status: Acute - Assessment and Plan (Free Text) Assessment: await DR Ranjit pastrana check Vanco level
[2017-05-09] MEDS ORDERED: Albuterol 0.042% Inhal Sol (1.25 mg/3 mL) UD INH PRN (16:00)
--- NOTE | 2017-05-09 22:13 | CP.PCM.PN ---
Subjective - Date & Time of Evaluation Date of Evaluation: 05/09/17 Time of Evaluation: 13:20 - Subjective Subjective: Patient is alert and responsive. He is receiving IV vancomyciin. Mr Rosario was also evaluated and treated by wound care. Objective - Vital Signs/Intake and Output Vital Signs (last 24 hours): Temp Pulse Resp BP Pulse Ox 98.2 F 72 20 145/84 95 05/09/17 15:00 05/09/17 15:00 05/09/17 15:00 05/09/17 15:00 05/09/17 15:00 Intake and Output: 05/09/17 05/10/17 18:59 06:59 Intake Total 1230 Balance 1230 - Medications Medications: Current Medications Albuterol Sulfate (Albuterol 0.042% Inhal Leta (1.25mg/3ml) Ud) 1.25 mg INH RQ8 PRN PRN Reason: Wheezing Allopurinol (Zyloprim) 100 mg PO DAILY [facility] Last Admin: 05/09/17 10:45 Dose: 100 mg Enalapril Maleate (Vasotec) 5 mg PO DAILY [facility] Last Admin: 05/09/17 10:46 Dose: 5 mg Ferrous Gluconate (Fergon) 324 mg PO TID [facility] Last Admin: 05/09/17 17:09 Dose: 324 mg Heparin Sodium (Porcine) (Heparin) 5,000 units SC BID [facility] Last Admin: 05/09/17 17:09 Dose: 5,000 units Vancomycin HCl 1,000 mg/ (Sodium Chloride) 200 mls @ 100 mls/hr IVPB Q12H [facility] Last Admin: 05/09/17 12:34 Dose: 100 mls/hr Ibuprofen (Motrin Tab) 800 mg PO BID [facility] Last Admin: 05/09/17 17:08 Dose: 800 mg Nystatin (Nystop Topical Powder) 1 applic TOP BID [facility] Last Admin: 05/09/17 17:09 Dose: Not Given Pantoprazole Sodium (Protonix Ec Tab) 40 mg PO DAILY [facility] Last Admin: 05/09/17 10:46 Dose: 40 mg Pneumococcal Polyvalent Vaccine (Pneumovax 23 Vaccine) 0.5 ml IM .ONCE ONE Stop: 05/10/17 10:01 - Labs Labs: 05/07/17 20:25 05/07/17 20:25 PT 11.0 SECONDS (9.7-12.2) 05/07/17 20:25 INR 1.0 05/07/17 20:25 APTT 30 SECONDS (21-34) 05/07/17 20:25 - Constitutional Appears: No Acute Distress - Head Exam Head Exam: NORMOCEPHALIC - Eye Exam Eye Exam: Normal appearance - ENT Exam ENT Exam: Normal Exam - Neck Exam Neck Exam: Normal Inspection - Respiratory Exam Respiratory Exam: Decreased Breath Sounds - Cardiovascular Exam Cardiovascular Exam: REGULAR RHYTHM - GI/Abdominal Exam GI & Abdominal Exam: Hyperactive Bowel Sounds - Rectal Exam Rectal Exam: Deferred - Exam Exam: NORMAL INSPECTION - Extremities Exam Extremities Exam: Tenderness - Back Exam Back Exam: NORMAL INSPECTION - Neurological Exam Neurological Exam: Oriented x3 - Psychiatric Exam Psychiatric exam: Depressed - Skin Skin Exam: Dry Assessment and Plan (1) Gout Status: Acute (2) Bilateral leg ulcer Status: Acute (3) Failure of outpatient treatment Status: Acute (4) Arthritis Status: Acute (5) Sleep apnea Status: Acute (6) Obesity Status: Chronic (7) Cellulitis Status: Acute
[2017-05-10 07:43] LABS: BASO # 0.1 K/uL (0.0-0.2); BASO % 1.2 % (0.0-2.0); EOS # 0.2 K/uL (0.0-0.7); EOS % 2.7 % (0.0-4.0); LYMPH # 1.2 K/uL (1.0-4.3); LYMPH % 18.7 % (20.0-40.0); MEAN CELL VOLUME 88.7 fL (80.0-94.0); MEAN CORPUSCULAR HEMOGLOBIN 30.6 pg (27.0-31.0); MEAN CORPUSCULAR HGB CONC 34.5 g/dL (33.0-37.0); MEAN PLATELET VOLUME 7.8 fL (7.2-11.7); MONO # 0.5 K/uL (0.0-0.8); MONO % 8.5 % (0.0-10.0); NEUT # 4.4 K/uL (1.8-7.0); NEUT % 68.9 % (50.0-75.0); RBC 3.9 Mil/uL (4.40-5.90); RED CELL DISTRIBUTION WIDTH 14.4 % (11.5-14.5); WHITE BLOOD COUNT 6.3 K/uL (4.8-10.8)
[2017-05-10 07:58] LABS: HEMOGLOBIN 11.9 g/dL (12.0-18.0)
[2017-05-10 09:15] LABS: ALBUMIN 3.4 g/dL (3.5-5.0); ALT/SGPT 15 U/L (21-72); AST/SGOT 21 U/L (17-59); BLOOD UREA NITROGEN 16 mg/dL (9-20); CALCIUM 7.9 mg/dl (8.6-10.4); GFR AFRICAN-AMERICAN > 60; GFR NON-AFRICAN AMERICAN > 60; URIC ACID 8.1 mg/dL (3.5-8.5)
[2017-05-10] MEDS: Pantoprazole 40 mg EC Tab PO SCH (09:55)
[2017-05-10] MEDS ORDERED: Pneumococcal 23-Valent Vaccine IM ONE (10:00)
[2017-05-10] MEDS: Albuterol 0.042% Inhal Sol (1.25 mg/3 mL) UD INH SCH ×2 (14:34→19:08)
--- NOTE | 2017-05-10 16:29 | CP.PCM.PN ---
Subjective - Date & Time of Evaluation Date of Evaluation: 05/10/17 Time of Evaluation: 10:00 - Subjective Subjective: less pain and swelling redness improved wounds covered Objective - Vital Signs/Intake and Output Vital Signs (last 24 hours): Temp Pulse Resp BP Pulse Ox 98 F 75 20 117/75 96 05/10/17 08:40 05/10/17 08:40 05/10/17 08:40 05/10/17 09:56 05/10/17 08:40 Intake and Output: 05/10/17 05/10/17 06:59 18:59 Intake Total 350 680 Balance 350 680 - Medications Medications: Current Medications Albuterol Sulfate (Albuterol 0.042% Inhal Leta (1.25mg/3ml) Ud) 1.25 mg INH RQ8 PRN PRN Reason: Wheezing Albuterol Sulfate (Albuterol 0.042% Inhal Leta (1.25mg/3ml) Ud) 1.25 mg INH RTID [facility] Allopurinol (Zyloprim) 100 mg PO DAILY [facility] Last Admin: 05/10/17 09:55 Dose: 100 mg Enalapril Maleate (Vasotec) 5 mg PO DAILY [facility] Last Admin: 05/10/17 09:56 Dose: 5 mg Ferrous Gluconate (Fergon) 324 mg PO TID [facility] Last Admin: 05/10/17 14:34 Dose: 324 mg Heparin Sodium (Porcine) (Heparin) 5,000 units SC BID [facility] Last Admin: 05/10/17 09:55 Dose: 5,000 units Vancomycin HCl 1,000 mg/ (Sodium Chloride) 200 mls @ 100 mls/hr IVPB Q12H [facility] Last Admin: 05/10/17 12:55 Dose: 100 mls/hr Ibuprofen (Motrin Tab) 800 mg PO BID [facility] Last Admin: 05/10/17 09:55 Dose: 800 mg Nystatin (Nystop Topical Powder) 1 applic TOP BID [facility] Last Admin: 05/10/17 09:58 Dose: 1 applic Pantoprazole Sodium (Protonix Ec Tab) 40 mg PO DAILY [facility] Last Admin: 05/10/17 09:55 Dose: 40 mg - Labs Labs: 05/10/17 07:33 05/10/17 07:33 PT 11.0 SECONDS (9.7-12.2) 05/07/17 20:25 INR 1.0 05/07/17 20:25 APTT 30 SECONDS (21-34) 05/07/17 20:25 - Constitutional Appears: Non-toxic, Chronically Ill - Head Exam Head Exam: NORMOCEPHALIC - Eye Exam Eye Exam: PERRL - ENT Exam ENT Exam: Mucous Membranes Dry - Neck Exam Neck Exam: absent: Lymphadenopathy - Respiratory Exam Respiratory Exam: Decreased Breath Sounds - Cardiovascular Exam Cardiovascular Exam: REGULAR RHYTHM - GI/Abdominal Exam GI & Abdominal Exam: Distended - Rectal Exam Rectal Exam: Deferred - Exam Exam: NORMAL INSPECTION - Extremities Exam Extremities Exam: Pedal Edema, Tenderness. absent: Calf Tenderness - Back Exam Back Exam: absent: CVA tenderness (L), CVA tenderness (R) - Neurological Exam Neurological Exam: Alert, Awake, Normal Gait, Oriented x3 Assessment and Plan (1) Bilateral leg ulcer Status: Acute (2) Cellulitis Status: Acute (3) Failure of outpatient treatment Status: Acute (4) Infected stasis ulcer of left lower extremity Status: Acute
--- NOTE | 2017-05-10 22:48 | CP.PCM.PN ---
Subjective - Date & Time of Evaluation Date of Evaluation: 05/10/17 Time of Evaluation: 13:15 - Subjective Subjective: Patient alert and responsive. Leg woumds responding to antibiotic therapy. Less redness, less swelling, and less inflammation. Objective - Vital Signs/Intake and Output Vital Signs (last 24 hours): Temp Pulse Resp BP Pulse Ox 98.2 F 78 20 104/64 95 05/10/17 16:00 05/10/17 19:09 05/10/17 16:00 05/10/17 16:00 05/10/17 16:00 Intake and Output: 05/10/17 05/11/17 18:59 06:59 Intake Total 680 Balance 680 - Medications Medications: Current Medications Albuterol Sulfate (Albuterol 0.042% Inhal Leta (1.25mg/3ml) Ud) 1.25 mg INH RQ8 PRN PRN Reason: Wheezing Albuterol Sulfate (Albuterol 0.042% Inhal Leta (1.25mg/3ml) Ud) 1.25 mg INH RTID [facility] Last Admin: 05/10/17 19:08 Dose: 1.25 mg Allopurinol (Zyloprim) 100 mg PO DAILY [facility] Last Admin: 05/10/17 09:55 Dose: 100 mg Enalapril Maleate (Vasotec) 5 mg PO DAILY [facility] Last Admin: 05/10/17 09:56 Dose: 5 mg Ferrous Gluconate (Fergon) 324 mg PO TID [facility] Last Admin: 05/10/17 18:26 Dose: 324 mg Heparin Sodium (Porcine) (Heparin) 5,000 units SC BID [facility] Last Admin: 05/10/17 17:38 Dose: 5,000 units Vancomycin HCl 1,000 mg/ (Sodium Chloride) 200 mls @ 100 mls/hr IVPB Q12H [facility] Last Admin: 05/10/17 12:55 Dose: 100 mls/hr Ibuprofen (Motrin Tab) 800 mg PO BID [facility] Last Admin: 05/10/17 17:37 Dose: 800 mg Nystatin (Nystop Topical Powder) 1 applic TOP BID [facility] Last Admin: 05/10/17 17:40 Dose: 1 applic Pantoprazole Sodium (Protonix Ec Tab) 40 mg PO DAILY [facility] Last Admin: 05/10/17 09:55 Dose: 40 mg - Labs Labs: 05/10/17 07:33 05/10/17 07:33 PT 11.0 SECONDS (9.7-12.2) 05/07/17 20:25 INR 1.0 05/07/17 20:25 APTT 30 SECONDS (21-34) 05/07/17 20:25 - Constitutional Appears: No Acute Distress - Head Exam Head Exam: NORMOCEPHALIC - Eye Exam Eye Exam: Normal appearance Pupil Exam: NORMAL ACCOMODATION - ENT Exam ENT Exam: Normal Exam - Neck Exam Neck Exam: Normal Inspection - Respiratory Exam Respiratory Exam: Decreased Breath Sounds - Cardiovascular Exam Cardiovascular Exam: REGULAR RHYTHM - GI/Abdominal Exam GI & Abdominal Exam: Hyperactive Bowel Sounds - Rectal Exam Rectal Exam: Deferred - Exam Exam: NORMAL INSPECTION - Extremities Exam Extremities Exam: Tenderness - Back Exam Back Exam: NORMAL INSPECTION - Neurological Exam Neurological Exam: Oriented x3 - Psychiatric Exam Psychiatric exam: Normal Affect - Skin Skin Exam: Dry Assessment and Plan (1) Gout Status: Acute (2) Bilateral leg ulcer Status: Acute (3) Failure of outpatient treatment Status: Acute (4) Arthritis Status: Acute (5) Sleep apnea Status: Acute (6) Obesity Status: Chronic (7) Cellulitis Status: Acute
--- NOTE | 2017-05-10 23:21 | CARD ---
APPROVED REPORT EKG Measurement Heart [id number] <Conclusion> Normal sinus rhythm Incomplete right bundle branch block Borderline ECG
--- NOTE | 2017-05-11 00:36 | CON ---
DATE: HISTORY OF PRESENT ILLNESS: This is a 51-year-old man, a nonsmoker with a past history of arthritis, gout, degenerative joint disease, DVT in 2010 and placement of IVC filter, obesity, recurrent and nonhealing ulcers of both legs, now admitted via ER with increasing edema of the legs and drainage of leg ulcers, more on the left than on the right side and he complained of severe pain with difficulty in ambulation. He has been having antibiotics with no significant improvement over the last 2 weeks. He has occasional shortness of breath, no productive cough. He has no chest pain. There is no hemoptysis. SOCIAL HISTORY: He is nonsmoker. Does not consume excess alcohol. ALLERGY: HE IS ALLERGIC TO PENICILLIN. PAST MEDICAL HISTORY: He has a past history of deep vein thrombosis of the left leg, more than on the right leg and an IVC filter was placed because he does not tolerate anticoagulants and he is very obese. He has a past history of degenerative joint disease, gout with arthralgia, severe obesity and recurrent bilateral leg ulcers with dependant bilateral pedal edema. FAMILY HISTORY: Nothing significant was reported. REVIEW OF SYSTEMS: Systemic as reported above. CONSTITUTIONAL: There is no headache or history of epilepsy. CARDIORESPIRATORY: Revealed no chest pain or dyspnea. GASTROINTESTINAL: No vomiting or hematemesis. RENAL: History of frequency of urine. MUSCULOSKELETAL: History of arthralgia, arthritis and gout. Further exam was unremarkable and there was no significant report. PHYSICAL EXAMINATION: GENERAL: The patient was alert, oriented, obese. He is not in acute distress. VITAL SIGNS: Afebrile with blood pressure 116/76, pulse 75, respirations 20, hemoglobin oxygen saturation of 96% on room air. HEENT: Unremarkable. NECK: Supple. No thyromegaly. HEART: Regular. There is no gallop rhythm. LUNGS: Diminished breath sounds over the lung bases. Bronchi occasional. ABDOMEN: Soft. No tenderness. EXTREMITIES: Bilateral leg edema. Bilateral leg ulcers larger on the left lower leg and smaller one in the right lower leg with surrounding erythema and pedal edema. Deep tendon reflexes are difficult to elicit. There are no signs of neuropathy. Muscle strength is normal. LABORATORY DATA: His white count is 6300, hemoglobin 11.9, platelet count 290,000. Serum sodium 136, potassium 4.1, BUN 16, creatinine 1.2, calcium 7.9, albumin 3.4. Chest x-ray shows supine film with poor inspiratory effort and shows mild venous congestion and with mildly elevated hemidiaphragm and tortuous ectatic aorta, degenerative changes in the spine and mild cardiomegaly. IMPRESSION: Respiratory insufficiency, pulmonary venous congestion, sepsis, with bilateral leg ulcers, obesity, dependent leg edema, degenerative joint disease, gout, status post deep venous thrombosis in the past, status post inferior vena cava filter insertion, and history of gallstones. PLAN: To continue with current measures, DVT prophylaxis measures as indicated. The patient has IVC filter in place. Vigilance should be exercised. Albuterol, oxygen and regular ulcer dressing by the nurse and continue follow up with Infectious Disease specialist, incentive spirometry. Sudarshan Delong MD
[2017-05-11] MEDS: Albuterol 0.042% Inhal Sol (1.25 mg/3 mL) UD INH SCH ×3 (07:30→19:11)
[2017-05-11 08:04] LABS: HEMOGLOBIN 12.1 g/dL (12.0-18.0); MEAN CELL VOLUME 89.2 fL (80.0-94.0); MEAN CORPUSCULAR HEMOGLOBIN 30.4 pg (27.0-31.0); MEAN CORPUSCULAR HGB CONC 34.1 g/dL (33.0-37.0); RBC 3.98 Mil/uL (4.40-5.90); RED CELL DISTRIBUTION WIDTH 14.4 % (11.5-14.5); WHITE BLOOD COUNT 6.3 K/uL (4.8-10.8)
[2017-05-11 08:28] LABS: BLOOD UREA NITROGEN 14 mg/dL (9-20); CALCIUM 7.8 mg/dl (8.6-10.4); GFR AFRICAN-AMERICAN > 60; GFR NON-AFRICAN AMERICAN > 60
[2017-05-11] MEDS ORDERED: Influenza Vaccine 60 mcg/0.5 mL SYR (4YR UP) IM ONE (10:00)
[2017-05-11] MEDS: Pantoprazole 40 mg EC Tab PO SCH (10:06)
--- NOTE | 2017-05-11 19:20 | CP.PCM.PN ---
Subjective - Date & Time of Evaluation Date of Evaluation: 05/11/17 Time of Evaluation: 08:00 - Subjective Subjective: events noted IV Vanco renewed levels are acceptable Objective - Vital Signs/Intake and Output Vital Signs (last 24 hours): Temp Pulse Resp BP Pulse Ox 98.1 F 77 20 127/74 96 05/11/17 15:15 05/11/17 15:15 05/11/17 15:15 05/11/17 15:15 05/11/17 15:15 Intake and Output: 05/11/17 05/12/17 18:59 06:59 Intake Total 560 Balance 560 - Medications Medications: Current Medications Albuterol Sulfate (Albuterol 0.042% Inhal Leta (1.25mg/3ml) Ud) 1.25 mg INH RQ8 PRN PRN Reason: Wheezing Albuterol Sulfate (Albuterol 0.042% Inhal Leta (1.25mg/3ml) Ud) 1.25 mg INH RTID [facility] Last Admin: 05/11/17 19:11 Dose: 1.25 mg Allopurinol (Zyloprim) 100 mg PO DAILY [facility] Last Admin: 05/11/17 10:06 Dose: 100 mg Enalapril Maleate (Vasotec) 5 mg PO DAILY [facility] Last Admin: 05/11/17 10:07 Dose: 5 mg Ferrous Gluconate (Fergon) 324 mg PO TID [facility] Last Admin: 05/11/17 17:47 Dose: 324 mg Vancomycin HCl 1,000 mg/ (Sodium Chloride) 200 mls @ 100 mls/hr IVPB Q12H [facility] Last Admin: 05/11/17 12:03 Dose: 100 mls/hr Ibuprofen (Motrin Tab) 800 mg PO BID [facility] Last Admin: 05/11/17 17:47 Dose: 800 mg Nystatin (Nystop Topical Powder) 1 applic TOP BID [facility] Last Admin: 05/11/17 17:50 Dose: Not Given Pantoprazole Sodium (Protonix Ec Tab) 40 mg PO DAILY [facility] Last Admin: 05/11/17 10:06 Dose: 40 mg - Labs Labs: 05/11/17 07:51 05/11/17 07:51 PT 11.0 SECONDS (9.7-12.2) 05/07/17 20:25 INR 1.0 05/07/17 20:25 APTT 30 SECONDS (21-34) 05/07/17 20:25 - Constitutional Appears: Non-toxic, Chronically Ill - Head Exam Head Exam: NORMOCEPHALIC - Eye Exam Eye Exam: absent: Scleral icterus - ENT Exam ENT Exam: Mucous Membranes Dry - Neck Exam Neck Exam: absent: Lymphadenopathy - Respiratory Exam Respiratory Exam: Decreased Breath Sounds - Cardiovascular Exam Cardiovascular Exam: REGULAR RHYTHM - GI/Abdominal Exam GI & Abdominal Exam: Distended, Soft - Rectal Exam Rectal Exam: Deferred Assessment and Plan (1) Bilateral leg ulcer Status: Acute (2) Cellulitis Status: Acute (3) Failure of outpatient treatment Status: Acute (4) Infected stasis ulcer of left lower extremity Status: Acute
--- NOTE | 2017-05-11 19:39 | PN ---
DATE: PHYSICAL EXAMINATION GENERAL: The patient is alert, oriented. He is not in acute distress. He is lying in bed. VITAL SIGNS: Afebrile with blood pressure 116/78, pulse is 67 per minute, respirations 20, hemoglobin oxygen saturation of 96% on room air. HEART: Regular. No gallop rhythm. LUNGS: Diminished breath sounds over the lung bases. No rhonchi. ABDOMEN: Soft. EXTREMITIES: Legs, ankle swelling present and bilateral leg ulcers were on the left side present. LABORATORY DATA: His blood cultures reported to show no growth so far but wound culture shows Enterococci fecalis, which is methicillin resistant Staph aureus. Both organisms are present in the wound culture on gram stain. Blood culture showed no growth after 48 hours as reported. His white count is 6300, hemoglobin 12.1, platelet count is 296,000. Sodium 135, potassium 3.9, chloride 103, BUN 14, creatinine 1. Vancomycin trough is 15.6. IMPRESSION: Respiratory insufficiency, pulmonary congestive changes, sepsis, bilateral leg wounds, obesity, arthralgia, bronchitis, status post deep venous thrombosis and implantation of inferior vena cava filter. PLAN: To continue with the treatment and antibiotics as ordered by infectious disease specialist. Continue with the incentive spirometry . Sudarshan Delong MD
--- NOTE | 2017-05-11 22:27 | CP.PCM.PN ---
Subjective - Date & Time of Evaluation Date of Evaluation: 05/11/17 Time of Evaluation: 13:35 - Subjective Subjective: Patient responding slowly to vancomycin. Culture positive for MERSA. Vancomycin IV renewed. Objective - Vital Signs/Intake and Output Vital Signs (last 24 hours): Temp Pulse Resp BP Pulse Ox 98.1 F 77 20 127/74 96 05/11/17 15:15 05/11/17 15:15 05/11/17 15:15 05/11/17 15:15 05/11/17 15:15 Intake and Output: 05/11/17 05/12/17 18:59 06:59 Intake Total 560 Balance 560 - Medications Medications: Current Medications Albuterol Sulfate (Albuterol 0.042% Inhal Leta (1.25mg/3ml) Ud) 1.25 mg INH RQ8 PRN PRN Reason: Wheezing Albuterol Sulfate (Albuterol 0.042% Inhal Leta (1.25mg/3ml) Ud) 1.25 mg INH RTID [facility] Last Admin: 05/11/17 19:11 Dose: 1.25 mg Allopurinol (Zyloprim) 100 mg PO DAILY [facility] Last Admin: 05/11/17 10:06 Dose: 100 mg Enalapril Maleate (Vasotec) 5 mg PO DAILY [facility] Last Admin: 05/11/17 10:07 Dose: 5 mg Ferrous Gluconate (Fergon) 324 mg PO TID [facility] Last Admin: 05/11/17 17:47 Dose: 324 mg Heparin Sodium (Porcine) (Heparin) 5,000 units SC Q12H [facility] Last Admin: 05/11/17 22:22 Dose: 5,000 units Vancomycin HCl 1,000 mg/ (Sodium Chloride) 200 mls @ 100 mls/hr IVPB Q12H [facility] Last Admin: 05/11/17 12:03 Dose: 100 mls/hr Ibuprofen (Motrin Tab) 800 mg PO BID [facility] Last Admin: 05/11/17 17:47 Dose: 800 mg Nystatin (Nystop Topical Powder) 1 applic TOP BID [facility] Last Admin: 05/11/17 17:50 Dose: Not Given Pantoprazole Sodium (Protonix Ec Tab) 40 mg PO DAILY [facility] Last Admin: 05/11/17 10:06 Dose: 40 mg - Labs Labs: 05/11/17 07:51 05/11/17 07:51 PT 11.0 SECONDS (9.7-12.2) 05/07/17 20:25 INR 1.0 05/07/17 20:25 APTT 30 SECONDS (21-34) 05/07/17 20:25 - Constitutional Appears: No Acute Distress - Head Exam Head Exam: NORMOCEPHALIC - Eye Exam Eye Exam: Normal appearance Pupil Exam: NORMAL ACCOMODATION - ENT Exam ENT Exam: Normal Exam - Neck Exam Neck Exam: Normal Inspection - Respiratory Exam Respiratory Exam: Decreased Breath Sounds - Cardiovascular Exam Cardiovascular Exam: REGULAR RHYTHM - GI/Abdominal Exam GI & Abdominal Exam: Hyperactive Bowel Sounds - Rectal Exam Rectal Exam: Deferred - Exam Exam: NORMAL INSPECTION - Extremities Exam Extremities Exam: Tenderness - Back Exam Back Exam: NORMAL INSPECTION - Neurological Exam Neurological Exam: Oriented x3 - Psychiatric Exam Psychiatric exam: Depressed - Skin Skin Exam: Dry Assessment and Plan (1) Gout Status: Acute (2) Bilateral leg ulcer Status: Acute (3) Failure of outpatient treatment Status: Acute (4) Arthritis Status: Acute (5) Sleep apnea Status: Acute (6) Obesity Status: Chronic (7) Cellulitis Status: Acute
[2017-05-12] MEDS: Albuterol 0.042% Inhal Sol (1.25 mg/3 mL) UD INH SCH ×2 (07:17→13:20)
[2017-05-12] MEDS: Pantoprazole 40 mg EC Tab PO SCH (09:37)
--- NOTE | 2017-05-12 22:34 | CP.PCM.PN ---
Subjective - Date & Time of Evaluation Date of Evaluation: 05/12/17 Time of Evaluation: 13:05 - Subjective Subjective: Leg ulcers begining to granulate. Cultures positive for Mersa. Continue vancomycin IV. Repeat labs in AM. Objective - Vital Signs/Intake and Output Vital Signs (last 24 hours): Temp Pulse Resp BP Pulse Ox 98.6 F 73 20 117/74 97 05/12/17 15:15 05/12/17 15:15 05/12/17 15:15 05/12/17 15:15 05/12/17 15:15 - Medications Medications: Current Medications Albuterol Sulfate (Albuterol 0.042% Inhal Leta (1.25mg/3ml) Ud) 1.25 mg INH RQ8 PRN PRN Reason: Wheezing Albuterol Sulfate (Albuterol 0.042% Inhal Leta (1.25mg/3ml) Ud) 1.25 mg INH RTID [facility] Last Admin: 05/12/17 13:20 Dose: 1.25 mg Allopurinol (Zyloprim) 100 mg PO DAILY [facility] Last Admin: 05/12/17 09:38 Dose: 100 mg Enalapril Maleate (Vasotec) 5 mg PO DAILY [facility] Last Admin: 05/12/17 09:38 Dose: 5 mg Ferrous Gluconate (Fergon) 324 mg PO TID [facility] Last Admin: 05/12/17 17:49 Dose: 324 mg Heparin Sodium (Porcine) (Heparin) 5,000 units SC Q12H [facility] Last Admin: 05/12/17 21:38 Dose: 5,000 units Vancomycin HCl 1,000 mg/ (Sodium Chloride) 200 mls @ 100 mls/hr IVPB Q12H [facility] Last Admin: 05/12/17 12:00 Dose: 100 mls/hr Ibuprofen (Motrin Tab) 800 mg PO BID [facility] Last Admin: 05/12/17 17:47 Dose: 800 mg Nystatin (Nystop Topical Powder) 1 applic TOP BID [facility] Last Admin: 05/12/17 17:50 Dose: Not Given Pantoprazole Sodium (Protonix Ec Tab) 40 mg PO DAILY [facility] Last Admin: 05/12/17 09:37 Dose: 40 mg - Labs Labs: 05/11/17 07:51 05/11/17 07:51 PT 11.0 SECONDS (9.7-12.2) 05/07/17 20:25 INR 1.0 05/07/17 20:25 APTT 30 SECONDS (21-34) 05/07/17 20:25 - Constitutional Appears: No Acute Distress - Head Exam Head Exam: NORMOCEPHALIC - Eye Exam Eye Exam: Normal appearance Pupil Exam: NORMAL ACCOMODATION - ENT Exam ENT Exam: Normal Exam - Neck Exam Neck Exam: Normal Inspection - Respiratory Exam Respiratory Exam: Decreased Breath Sounds - Cardiovascular Exam Cardiovascular Exam: REGULAR RHYTHM - GI/Abdominal Exam GI & Abdominal Exam: Hyperactive Bowel Sounds - Rectal Exam Rectal Exam: Deferred - Exam Exam: NORMAL INSPECTION - Extremities Exam Extremities Exam: Tenderness - Neurological Exam Neurological Exam: Oriented x3 - Psychiatric Exam Psychiatric exam: Depressed - Skin Skin Exam: Dry Assessment and Plan (1) Gout Status: Acute (2) Bilateral leg ulcer Status: Acute (3) Failure of outpatient treatment Status: Acute (4) Arthritis Status: Acute (5) Sleep apnea Status: Acute (6) Obesity Status: Chronic (7) Cellulitis Status: Acute
[2017-05-13 07:12] LABS: BASO # 0.1 K/uL (0.0-0.2); BASO % 1.1 % (0.0-2.0); EOS # 0.2 K/uL (0.0-0.7); EOS % 3.2 % (0.0-4.0); HEMOGLOBIN 12.1 g/dL (12.0-18.0); LYMPH % 14.4 % (20.0-40.0); MEAN CELL VOLUME 88.3 fL (80.0-94.0); MEAN CORPUSCULAR HEMOGLOBIN 30.4 pg (27.0-31.0); MEAN CORPUSCULAR HGB CONC 34.5 g/dL (33.0-37.0); MEAN PLATELET VOLUME 7.6 fL (7.2-11.7); MONO # 0.6 K/uL (0.0-0.8); MONO % 8.1 % (0.0-10.0); NEUT # 5.2 K/uL (1.8-7.0); NEUT % 73.2 % (50.0-75.0); RBC 3.98 Mil/uL (4.40-5.90); RED CELL DISTRIBUTION WIDTH 14.4 % (11.5-14.5); WHITE BLOOD COUNT 7.1 K/uL (4.8-10.8)
[2017-05-13] MEDS: Albuterol 0.042% Inhal Sol (1.25 mg/3 mL) UD INH SCH ×3 (07:15→19:19)
[2017-05-13 07:55] LABS: ALBUMIN 3.3 g/dL (3.5-5.0); ALT/SGPT 6 U/L (21-72); AST/SGOT 12 U/L (17-59); BLOOD UREA NITROGEN 16 mg/dL (9-20); GFR AFRICAN-AMERICAN > 60; GFR NON-AFRICAN AMERICAN > 60
[2017-05-13] MEDS: Pantoprazole 40 mg EC Tab PO SCH (10:40)
--- NOTE | 2017-05-13 22:37 | CP.PCM.PN ---
Subjective - Date & Time of Evaluation Date of Evaluation: 05/13/17 Time of Evaluation: 16:35 - Subjective Subjective: Patient continues to make slow progress. Ulcerations beginning to granulate. Hgb stable. Continue IV vancomycin. Objective - Vital Signs/Intake and Output Vital Signs (last 24 hours): Temp Pulse Resp BP Pulse Ox 97.2 F L 93 H 20 119/78 96 05/13/17 16:00 05/13/17 16:00 05/13/17 16:00 05/13/17 16:00 05/13/17 16:00 Intake and Output: 05/13/17 05/14/17 18:59 06:59 Intake Total 680 Balance 680 - Medications Medications: Current Medications Albuterol Sulfate (Albuterol 0.042% Inhal Leta (1.25mg/3ml) Ud) 1.25 mg INH RQ8 PRN PRN Reason: Wheezing Albuterol Sulfate (Albuterol 0.042% Inhal Leta (1.25mg/3ml) Ud) 1.25 mg INH RTID [facility] Last Admin: 05/13/17 19:19 Dose: 1.25 mg Allopurinol (Zyloprim) 100 mg PO DAILY [facility] Last Admin: 05/13/17 10:40 Dose: 100 mg Enalapril Maleate (Vasotec) 5 mg PO DAILY [facility] Last Admin: 05/13/17 10:42 Dose: 5 mg Ferrous Gluconate (Fergon) 324 mg PO TID [facility] Last Admin: 05/13/17 17:32 Dose: 324 mg Heparin Sodium (Porcine) (Heparin) 5,000 units SC Q12H [facility] Last Admin: 05/13/17 21:16 Dose: 5,000 units Vancomycin HCl 1,000 mg/ (Sodium Chloride) 200 mls @ 100 mls/hr IVPB Q12H [facility] Last Admin: 05/13/17 12:30 Dose: 100 mls/hr Ibuprofen (Motrin Tab) 800 mg PO BID [facility] Last Admin: 05/13/17 17:32 Dose: 800 mg Nystatin (Nystop Topical Powder) 1 applic TOP BID [facility] Last Admin: 05/13/17 17:34 Dose: Not Given Pantoprazole Sodium (Protonix Ec Tab) 40 mg PO DAILY [facility] Last Admin: 05/13/17 10:40 Dose: 40 mg - Labs Labs: 05/13/17 07:04 05/13/17 07:04 PT 11.0 SECONDS (9.7-12.2) 05/07/17 20:25 INR 1.0 05/07/17 20:25 APTT 30 SECONDS (21-34) 05/07/17 20:25 - Constitutional Appears: No Acute Distress - Head Exam Head Exam: NORMOCEPHALIC - Eye Exam Eye Exam: Normal appearance Pupil Exam: NORMAL ACCOMODATION - ENT Exam ENT Exam: Normal Exam - Neck Exam Neck Exam: Normal Inspection - Respiratory Exam Respiratory Exam: Decreased Breath Sounds - Cardiovascular Exam Cardiovascular Exam: REGULAR RHYTHM - GI/Abdominal Exam GI & Abdominal Exam: Hyperactive Bowel Sounds - Rectal Exam Rectal Exam: Deferred - Exam Exam: NORMAL INSPECTION - Extremities Exam Extremities Exam: Joint Swelling - Back Exam Back Exam: NORMAL INSPECTION - Neurological Exam Neurological Exam: Oriented x3 - Psychiatric Exam Psychiatric exam: Normal Affect - Skin Skin Exam: Dry Assessment and Plan (1) Gout Status: Acute (2) Bilateral leg ulcer Status: Acute (3) Failure of outpatient treatment Status: Acute (4) Arthritis Status: Acute (5) Sleep apnea Status: Acute (6) Obesity Status: Chronic (7) Cellulitis Status: Acute
[2017-05-14] MEDS: Albuterol 0.042% Inhal Sol (1.25 mg/3 mL) UD INH SCH ×3 (07:15→19:30)
[2017-05-14] MEDS: Pantoprazole 40 mg EC Tab PO SCH (10:23)
--- NOTE | 2017-05-14 16:23 | CP.PCM.PN ---
Subjective - Date & Time of Evaluation Date of Evaluation: 05/14/17 Time of Evaluation: 09:00 - Subjective Subjective: imporoving with IV rx Vanco levels noted cultures reviewed Objective - Vital Signs/Intake and Output Vital Signs (last 24 hours): Temp Pulse Resp BP Pulse Ox 98.2 F 93 H 20 106/67 98 05/14/17 16:00 05/14/17 16:00 05/14/17 16:00 05/14/17 16:00 05/14/17 16:00 Intake and Output: 05/14/17 05/14/17 06:59 18:59 Intake Total 980 560 Balance 980 560 - Medications Medications: Current Medications Albuterol Sulfate (Albuterol 0.042% Inhal Leta (1.25mg/3ml) Ud) 1.25 mg INH RQ8 PRN PRN Reason: Wheezing Albuterol Sulfate (Albuterol 0.042% Inhal Leta (1.25mg/3ml) Ud) 1.25 mg INH RTID [facility] Last Admin: 05/14/17 13:14 Dose: 1.25 mg Allopurinol (Zyloprim) 100 mg PO DAILY [facility] Last Admin: 05/14/17 10:23 Dose: 100 mg Enalapril Maleate (Vasotec) 5 mg PO DAILY [facility] Last Admin: 05/14/17 10:24 Dose: 5 mg Ferrous Gluconate (Fergon) 324 mg PO TID [facility] Last Admin: 05/14/17 13:54 Dose: 324 mg Heparin Sodium (Porcine) (Heparin) 5,000 units SC Q12H [facility] Last Admin: 05/14/17 10:27 Dose: 5,000 units Vancomycin HCl 1,000 mg/ (Sodium Chloride) 200 mls @ 100 mls/hr IVPB Q12H [facility] Last Admin: 05/14/17 12:11 Dose: 100 mls/hr Ibuprofen (Motrin Tab) 800 mg PO BID [facility] Last Admin: 05/14/17 10:22 Dose: 800 mg Nystatin (Nystop Topical Powder) 1 applic TOP BID [facility] Last Admin: 05/14/17 10:23 Dose: Not Given Pantoprazole Sodium (Protonix Ec Tab) 40 mg PO DAILY [facility] Last Admin: 05/14/17 10:23 Dose: 40 mg - Labs Labs: 05/13/17 07:04 05/13/17 07:04 PT 11.0 SECONDS (9.7-12.2) 05/07/17 20:25 INR 1.0 05/07/17 20:25 APTT 30 SECONDS (21-34) 05/07/17 20:25 - Constitutional Appears: Non-toxic, Chronically Ill - Head Exam Head Exam: NORMOCEPHALIC - Eye Exam Eye Exam: PERRL - ENT Exam ENT Exam: Mucous Membranes Dry - Neck Exam Neck Exam: absent: Lymphadenopathy - Respiratory Exam Respiratory Exam: Decreased Breath Sounds - Cardiovascular Exam Cardiovascular Exam: REGULAR RHYTHM - GI/Abdominal Exam GI & Abdominal Exam: Distended, Soft - Rectal Exam Rectal Exam: Deferred - Exam Exam: NORMAL INSPECTION - Extremities Exam Extremities Exam: Pedal Edema, Tenderness - Back Exam Back Exam: absent: CVA tenderness (L), CVA tenderness (R) Assessment and Plan (1) Bilateral leg ulcer Status: Acute (2) Cellulitis Status: Acute (3) Failure of outpatient treatment Status: Acute (4) Infected stasis ulcer of left lower extremity Status: Acute - Assessment and Plan (Free Text) Assessment: cellulitis resolving wounds slow to heal cont iv rx and wound care
--- NOTE | 2017-05-14 23:29 | CP.PCM.PN ---
Subjective - Date & Time of Evaluation Date of Evaluation: 05/14/17 Time of Evaluation: 16:35 - Subjective Subjective: Patient denies any pain. He is slowly responding to antiiotic therapy. Patient evaluated by Dr Yang. Continue present therapy and wound care. Objective - Vital Signs/Intake and Output Vital Signs (last 24 hours): Temp Pulse Resp BP Pulse Ox 98.2 F 93 H 20 106/67 98 05/14/17 16:00 05/14/17 16:00 05/14/17 16:00 05/14/17 16:00 05/14/17 16:00 Intake and Output: 05/14/17 05/15/17 18:59 06:59 Intake Total 560 480 Balance 560 480 - Medications Medications: Current Medications Albuterol Sulfate (Albuterol 0.042% Inhal Leta (1.25mg/3ml) Ud) 1.25 mg INH RTID [facility] Last Admin: 05/14/17 19:30 Dose: 1.25 mg Allopurinol (Zyloprim) 100 mg PO DAILY [facility] Last Admin: 05/14/17 10:23 Dose: 100 mg Enalapril Maleate (Vasotec) 5 mg PO DAILY [facility] Last Admin: 05/14/17 10:24 Dose: 5 mg Ferrous Gluconate (Fergon) 324 mg PO TID [facility] Last Admin: 05/14/17 17:46 Dose: 324 mg Heparin Sodium (Porcine) (Heparin) 5,000 units SC Q12H [facility] Last Admin: 05/14/17 21:38 Dose: 5,000 units Vancomycin HCl 1,000 mg/ (Sodium Chloride) 200 mls @ 100 mls/hr IVPB Q12H [facility] Last Admin: 05/14/17 12:11 Dose: 100 mls/hr Ibuprofen (Motrin Tab) 800 mg PO BID [facility] Last Admin: 05/14/17 17:46 Dose: 800 mg Nystatin (Nystop Topical Powder) 1 applic TOP BID [facility] Last Admin: 05/14/17 18:32 Dose: Not Given Pantoprazole Sodium (Protonix Ec Tab) 40 mg PO DAILY [facility] Last Admin: 05/14/17 10:23 Dose: 40 mg - Labs Labs: 05/13/17 07:04 05/13/17 07:04 PT 11.0 SECONDS (9.7-12.2) 05/07/17 20:25 INR 1.0 05/07/17 20:25 APTT 30 SECONDS (21-34) 05/07/17 20:25 - Constitutional Appears: Chronically Ill - Head Exam Head Exam: NORMOCEPHALIC - Eye Exam Eye Exam: Normal appearance Pupil Exam: NORMAL ACCOMODATION - ENT Exam ENT Exam: Normal Exam - Neck Exam Neck Exam: Normal Inspection - Respiratory Exam Respiratory Exam: Decreased Breath Sounds - Cardiovascular Exam Cardiovascular Exam: REGULAR RHYTHM - GI/Abdominal Exam GI & Abdominal Exam: Hyperactive Bowel Sounds - Rectal Exam Rectal Exam: Deferred - Back Exam Back Exam: NORMAL INSPECTION - Neurological Exam Neurological Exam: Oriented x3 - Psychiatric Exam Psychiatric exam: Normal Affect (leg ulcers bilaterally) - Skin Skin Exam: Abrasion Assessment and Plan (1) Gout Status: Acute (2) Bilateral leg ulcer Status: Acute (3) Failure of outpatient treatment Status: Acute (4) Arthritis Status: Acute (5) Sleep apnea Status: Acute (6) Obesity Status: Chronic (7) Cellulitis Status: Acute
--- NOTE | 2017-05-15 07:15 | PN ---
DATE: SUBJECTIVE: The patient is alert, oriented in bed. He is not in any acute distress. PHYSICAL EXAMINATION: GENERAL: He is not in any acute distress. VITAL SIGNS: He is afebrile. Blood pressure 110/64, pulse 70, respirations 20, hemoglobin oxygen saturation of 96% on room air. HEART: Regular. There is no gallop rhythm. LUNGS: Diminished breath sounds over the lung bases. Rhonchi decreased. ABDOMEN: Soft. EXTREMITIES: Legs, some ankle edema present, especially around the bilateral leg ulcers, more so on the left side. LABORATORY DATA: His white count is 6300, hemoglobin 12.1. Serum sodium 135, potassium 3.9, BUN 14, creatinine 1. IMPRESSION: Respiratory insufficiency, hypertension, hypertensive cardiovascular disease, arthritis, sepsis, leg ulcers, gout, bronchitis. PLAN: To continue with the current measures including the vasodilators for control of blood pressure and trying rheumatic medicines as well as albuterol and antibiotics as recommended by Infectious Disease specialist. Sudarshan Delong MD
[2017-05-15] MEDS: Albuterol 0.042% Inhal Sol (1.25 mg/3 mL) UD INH SCH ×2 (07:37→13:47)
[2017-05-15] MEDS: Pantoprazole 40 mg EC Tab PO SCH (09:48)
--- NOTE | 2017-05-15 12:24 | CP.PCM.PN ---
Subjective - Date & Time of Evaluation Date of Evaluation: 05/15/17 Time of Evaluation: 12:19 - Subjective Subjective: CHILD CARE EDUCATION COORDINATOR DISCUSSED PT CASE WITH DR. BANERJEE. PT CLEARED FOR D/C PER DR. BANERJEE LONG CLEARED BY ID AND IS ACCEPTED AT [facility] ([facility]). DISCUSSED WITH THE PT AND BE PREFERS TO GO TO [facility], HOWEVER, DUE TO INSURANCE COVERAGE HE CAN GO TO [facility]--WHICH IS OK PER THE PT. I SPOKE WITH DR. ABDI AND PER HIM WE WILL CONTINUE VANCOMYCIN 1 GM IV Q12 HOURS X 7 MORE DAYS (START ON AND LAST DOSE TO BE GIVEN DURING THE EVENING OF 05/22/17). PICC LINE INSERTION ORDERED THROUGH IR. DIELECTRIC TESTING MACHINE OPERATOR DARVIN SEEING THE PT; WOUNDS TO BLE APPEAR TO BE HEALING (PT TO CONTINUE WOUND CARE AT [facility]). CHILD CARE EDUCATION COORDINATOR WILL FOLLOW UP WITH FINAL DISPO PLAN. CM, SW, PT, AND CHILD CARE EDUCATION COORDINATOR ALL IN AGREEMENT WITH PLAN. Objective - Vital Signs/Intake and Output Vital Signs (last 24 hours): Temp Pulse Resp BP Pulse Ox 97.9 F 78 20 112/68 94 L 05/15/17 08:35 05/15/17 08:35 05/15/17 08:35 05/15/17 09:48 05/15/17 08:35 Intake and Output: 05/15/17 05/15/17 06:59 18:59 Intake Total 480 Balance 480 - Medications Medications: Current Medications Albuterol Sulfate (Albuterol 0.042% Inhal Leta (1.25mg/3ml) Ud) 1.25 mg INH RTID [facility] Last Admin: 05/15/17 07:37 Dose: 1.25 mg Allopurinol (Zyloprim) 100 mg PO DAILY [facility] Last Admin: 05/15/17 09:49 Dose: 100 mg Collagenase (Santyl) 0 gm TOP DAILY [facility] Enalapril Maleate (Vasotec) 5 mg PO DAILY [facility] Last Admin: 05/15/17 09:48 Dose: 5 mg Ferrous Gluconate (Fergon) 324 mg PO TID [facility] Last Admin: 05/15/17 09:47 Dose: 324 mg Heparin Sodium (Porcine) (Heparin) 5,000 units SC Q12H [facility] Last Admin: 05/15/17 09:48 Dose: 5,000 units Vancomycin HCl 1,000 mg/ (Sodium Chloride) 200 mls @ 100 mls/hr IVPB Q12H [facility] Last Admin: 05/15/17 12:07 Dose: 100 mls/hr Ibuprofen (Motrin Tab) 800 mg PO BID [facility] Last Admin: 05/15/17 09:48 Dose: 800 mg Nystatin (Nystop Topical Powder) 1 applic TOP BID [facility] Last Admin: 05/14/17 18:32 Dose: Not Given Pantoprazole Sodium (Protonix Ec Tab) 40 mg PO DAILY [facility] Last Admin: 05/15/17 09:48 Dose: 40 mg - Labs Labs: 05/13/17 07:04 05/13/17 07:04 PT 11.0 SECONDS (9.7-12.2) 05/07/17 20:25 INR 1.0 05/07/17 20:25 APTT 30 SECONDS (21-34) 05/07/17 20:25
[2017-05-15] MEDS: Collagenase 250 Units/gm Ointment(30 gm) TOP SCH ×2 (15:00→17:33)
[2017-05-16] MEDS: Collagenase 250 Units/gm Ointment(30 gm) TOP SCH (10:47)
[2017-05-16] MEDS ORDERED: Lidocaine 2% Inj (20ml) ONE (11:22)
--- NOTE | 2017-05-16 11:57 | PCM.SURG1 ---
Surgeon's Initial Post Op Note - Surgeon's Notes Surgeon: Bar Scales MD Lift Mechanic: None Type of Anesthesia: Local Pre-Operative Diagnosis: Poor venous access Operative Findings: US showed a patent brachial vein Post-Operative Diagnosis: Poor venous access Operation Performed: Single lumen picc placement right brachial vein, 51 cm. Tip is in the SVC. Specimen/Specimens Removed: NONE Estimated Blood Loss: EBL {In ML}: 3 Blood Products Given: N/A Drains Used: No Drains Post-Op Condition: Fair Date of Surgery/Procedure: 05/16/17 Time of Surgery/Procedure: 11:50
[2017-05-16] MEDS: Pantoprazole 40 mg EC Tab PO SCH (12:46)
--- NOTE | 2017-05-16 14:48 | PN ---
DATE: SUBJECTIVE: The patient is alert, oriented in bed. He is not in any acute distress. His heart is regular. There is no gallop rhythm. PHYSICAL EXAMINATION: VITAL SIGNS: He is afebrile with blood pressure of 128/66, pulse 80, respirations 20 and hemoglobin oxygen of 95% on room air. HEART: Regular with no gallop rhythm. LUNGS: Diminished breath sounds over the lung bases with no rhonchi. ABDOMEN: Soft. EXTREMITIES: Legs show decrease in edema. There are bilateral leg ulcers present. The redness and surrounding edema of the ulcers is subsiding. The patient is on antibiotic therapy. LABORATORY DATA: Wound culture had grown methicillin-resistant Staphylococci and Enterococci. Blood cultures were negative. IMPRESSION: Obesity, arthralgia, bronchitis, gout, leg ulcers, sepsis. PLAN: To continue with the current therapy and follow up with infectious disease specialist. The patient is advised to continue with incentive spirometry. Sudarshan Delong MD
--- NOTE | 2017-05-16 15:51 | CP.PCM.PN ---
Subjective - Date & Time of Evaluation Date of Evaluation: 05/16/17 Time of Evaluation: 15:49 - Subjective Subjective: PT SEEN THIS AFTERNOON WITH DR. BANERJEE DURING ROUNDS. + PICC INSERTED TODAY TO RIGHT UPPER ARM. PER CM PT HAS BEEN ACCEPTED TO [facility] HOWEVER AT THIS TIME WE ARE PENDING AUTH FROM INSURANCE COMPANY. PER SW WE MAY NOT RECEIVE THE AUTH TODAY. CM TO NOTIFY [employer] TESTING GROUP LEADER OF WHEN AUTH IS REC'D. NO FURTHER ORDERS AT THIS TIME. WILL D/C WHEN AUTH. Objective - Vital Signs/Intake and Output Vital Signs (last 24 hours): Temp Pulse Resp BP Pulse Ox 97.5 F L 80 20 128/67 95 05/16/17 08:07 05/16/17 08:07 05/16/17 08:07 05/16/17 12:46 05/16/17 08:07 Intake and Output: 05/16/17 05/16/17 06:59 18:59 Intake Total 850 Balance 850 - Medications Medications: Current Medications Allopurinol (Zyloprim) 100 mg PO DAILY [facility] Last Admin: 05/16/17 12:46 Dose: 100 mg Collagenase (Santyl) 0 gm TOP DAILY [facility] Last Admin: 05/16/17 10:47 Dose: Not Given Enalapril Maleate (Vasotec) 5 mg PO DAILY [facility] Last Admin: 05/16/17 12:46 Dose: 5 mg Ferrous Gluconate (Fergon) 324 mg PO TID [facility] Last Admin: 05/16/17 13:00 Dose: 324 mg Heparin Sodium (Porcine) (Heparin) 5,000 units SC Q12H [facility] Last Admin: 05/16/17 10:43 Dose: Not Given Vancomycin HCl 1,000 mg/ (Sodium Chloride) 200 mls @ 100 mls/hr IVPB Q12H [facility] Last Admin: 05/16/17 12:50 Dose: 100 mls/hr Ibuprofen (Motrin Tab) 800 mg PO BID [facility] Last Admin: 05/16/17 12:44 Dose: 800 mg Nystatin (Nystop Topical Powder) 1 applic TOP BID [facility] Last Admin: 05/16/17 10:47 Dose: Not Given Pantoprazole Sodium (Protonix Ec Tab) 40 mg PO DAILY [facility] Last Admin: 05/16/17 12:46 Dose: 40 mg - Labs Labs: 05/13/17 07:04 05/13/17 07:04 PT 11.0 SECONDS (9.7-12.2) 05/07/17 20:25 INR 1.0 05/07/17 20:25 APTT 30 SECONDS (21-34) 05/07/17 20:25
--- NOTE | 2017-05-16 22:06 | CP.PCM.PN ---
Subjective - Date & Time of Evaluation Date of Evaluation: 05/16/17 Time of Evaluation: 13:25 - Subjective Subjective: Patient leg ulcerations continue to improve. PICC line inserted today to the right arm. He is scheduled to continue treatment at rehab center. Objective - Vital Signs/Intake and Output Vital Signs (last 24 hours): Temp Pulse Resp BP Pulse Ox 98.4 F 87 20 102/71 96 05/16/17 15:15 05/16/17 21:06 05/16/17 15:15 05/16/17 15:15 05/16/17 15:15 - Medications Medications: Current Medications Allopurinol (Zyloprim) 100 mg PO DAILY [facility] Last Admin: 05/16/17 12:46 Dose: 100 mg Collagenase (Santyl) 0 gm TOP DAILY [facility] Last Admin: 05/16/17 10:47 Dose: Not Given Enalapril Maleate (Vasotec) 5 mg PO DAILY [facility] Last Admin: 05/16/17 12:46 Dose: 5 mg Ferrous Gluconate (Fergon) 324 mg PO TID [facility] Last Admin: 05/16/17 17:35 Dose: 324 mg Heparin Sodium (Porcine) (Heparin) 5,000 units SC Q12H [facility] Last Admin: 05/16/17 21:39 Dose: 5,000 units Vancomycin HCl 1,000 mg/ (Sodium Chloride) 200 mls @ 100 mls/hr IVPB Q12H [facility] Last Admin: 05/16/17 12:50 Dose: 100 mls/hr Ibuprofen (Motrin Tab) 800 mg PO BID [facility] Last Admin: 05/16/17 17:35 Dose: 800 mg Nystatin (Nystop Topical Powder) 1 applic TOP BID [facility] Last Admin: 05/16/17 17:37 Dose: Not Given Pantoprazole Sodium (Protonix Ec Tab) 40 mg PO DAILY [facility] Last Admin: 05/16/17 12:46 Dose: 40 mg - Labs Labs: 05/13/17 07:04 05/13/17 07:04 PT 11.0 SECONDS (9.7-12.2) 05/07/17 20:25 INR 1.0 05/07/17 20:25 APTT 30 SECONDS (21-34) 05/07/17 20:25 - Constitutional Appears: No Acute Distress - Head Exam Head Exam: NORMOCEPHALIC - Eye Exam Eye Exam: Normal appearance - ENT Exam ENT Exam: Normal Exam - Neck Exam Neck Exam: Normal Inspection - Respiratory Exam Respiratory Exam: Decreased Breath Sounds - Cardiovascular Exam Cardiovascular Exam: REGULAR RHYTHM - GI/Abdominal Exam GI & Abdominal Exam: Diminished Bowel Sounds, Normal Bowel Sounds - Rectal Exam Rectal Exam: Deferred - Exam Exam: NORMAL INSPECTION - Extremities Exam Extremities Exam: Tenderness - Back Exam Back Exam: NORMAL INSPECTION - Neurological Exam Neurological Exam: Oriented x3 - Psychiatric Exam Psychiatric exam: Normal Affect - Skin Skin Exam: Dry Assessment and Plan (1) Gout Status: Acute (2) Bilateral leg ulcer Status: Acute (3) Failure of outpatient treatment Status: Acute (4) Arthritis Status: Acute (5) Sleep apnea Status: Acute (6) Obesity Status: Chronic (7) Cellulitis Status: Acute
[2017-05-17 07:31] VITALS: BP 105/62; PULSE 86; TEMP 98.5; O2SAT 96
--- NOTE | 2017-05-17 08:12 | CP.PCM.PN ---
Subjective - Date & Time of Evaluation Date of Evaluation: 05/17/17 Time of Evaluation: 08:10 - Subjective Subjective: PT HAS AUTH FROM INSURANCE [employer]. STABLE. PICC IN PLACE. CLEARED FOR D/C TO [place] TODAY TO CONTINUE WOUND CARE AND IV ABX. PER DR. ABDI PT WILL CONTINUE VANCOMYCIN 1 GM IV Q12 HOURS X 7 MORE DAYS (STARTED ON 05/16/17 AND LAST DOSE TO BE GIVEN DURING THE EVENING OF 05/22/17). WOUND CARE TO BE CONTINUED PER CASH VAN SALESPERSON RECS. SW TO ARRANGE TRANSPORTATION TO [place] TODAY. NO FURTHER ORDERS. Objective - Vital Signs/Intake and Output Vital Signs (last 24 hours): Temp Pulse Resp BP Pulse Ox 98.5 F 86 20 105/62 96 05/17/17 07:28 05/17/17 07:28 05/17/17 07:28 05/17/17 07:28 05/17/17 07:28 Intake and Output: 05/17/17 05/17/17 06:59 18:59 Intake Total 320 Balance 320 - Medications Medications: Current Medications Allopurinol (Zyloprim) 100 mg PO DAILY [facility] Last Admin: 05/16/17 12:46 Dose: 100 mg Collagenase (Santyl) 0 gm TOP DAILY [facility] Last Admin: 05/16/17 10:47 Dose: Not Given Enalapril Maleate (Vasotec) 5 mg PO DAILY [facility] Last Admin: 05/16/17 12:46 Dose: 5 mg Ferrous Gluconate (Fergon) 324 mg PO TID [facility] Last Admin: 05/16/17 17:35 Dose: 324 mg Heparin Sodium (Porcine) (Heparin) 5,000 units SC Q12H [facility] Last Admin: 05/16/17 21:39 Dose: 5,000 units Vancomycin HCl 1,000 mg/ (Sodium Chloride) 200 mls @ 100 mls/hr IVPB Q12H [facility] Last Admin: 05/17/17 00:15 Dose: 100 mls/hr Ibuprofen (Motrin Tab) 800 mg PO BID [facility] Last Admin: 05/16/17 17:35 Dose: 800 mg Nystatin (Nystop Topical Powder) 1 applic TOP BID [facility] Last Admin: 05/16/17 17:37 Dose: Not Given Pantoprazole Sodium (Protonix Ec Tab) 40 mg PO DAILY [facility] Last Admin: 01/16/18 12:46 Dose: 40 mg - Labs Labs: 05/13/17 07:04 05/13/17 07:04 PT 11.0 SECONDS (9.7-12.2) 05/07/17 20:25 INR 1.0 05/07/17 20:25 APTT 30 SECONDS (21-34) 05/07/17 20:25
[2017-05-17] MEDS: Pantoprazole 40 mg EC Tab PO SCH (10:09)
[2017-05-17] MEDS: Collagenase 250 Units/gm Ointment(30 gm) TOP SCH (10:16)
--- NOTE | 2017-05-17 22:24 | CP.PCM.DIS ---
Provider - Provider Date of Admission: 05/07/17 21:26 Attending physician: Daquan Brown MD Time Spent in preparation of Discharge (in minutes): 24 Diagnosis - Discharge Diagnosis (1) Gout Status: Acute (2) Bilateral leg ulcer Status: Acute (3) Failure of outpatient treatment Status: Acute (4) Arthritis Status: Acute (5) Sleep apnea Status: Acute (6) Obesity Status: Chronic Priority: Medium (7) Cellulitis Status: Acute (8) MRSA (methicillin resistant Staphylococcus aureus) infection Status: Acute Hospital Course - Lab Results Lab Results: Micro Results 05/07/17 20:25 Blood Blood Culture - Final NO GROWTH AFTER 5 DAYS 05/07/17 20:25 Blood Gram Stain - Final TEST NOT PERFORMED 05/07/17 08:30 Blood Blood Culture - Final NO GROWTH AFTER 5 DAYS 05/07/17 08:30 Blood Gram Stain - Final TEST NOT PERFORMED 05/07/17 20:08 Leg - Right Gram Stain - Final 05/07/17 20:08 Leg - Right Wound Culture - Final Methicillin Resistant S Aureus 05/07/17 20:08 Leg - Left Gram Stain - Final 05/07/17 20:08 Leg - Left Wound Culture - Final Enterococcus Faecalis Methicillin Resistant S Aureus Most Recent Lab Values WBC 7.1 K/uL (4.8-10.8) 05/13/17 07:04 RBC 3.98 Mil/uL (4.40-5.90) L 05/13/17 07:04 Hgb 12.1 g/dL (12.0-18.0) 05/13/17 07:04 Hct 35.2 % (35.0-51.0) 05/13/17 07:04 MCV 88.3 fL (80.0-94.0) 05/13/17 07:04 MCH 30.4 pg (27.0-31.0) 05/13/17 07:04 MCHC 34.5 g/dL (33.0-37.0) 05/13/17 07:04 RDW 14.4 % (11.5-14.5) 05/13/17 07:04 Plt Count 286 K/uL (130-400) 05/13/17 07:04 MPV 7.6 fL (7.2-11.7) 05/13/17 07:04 Neut % (Auto) 73.2 % (50.0-75.0) 05/13/17 07:04 Lymph % (Auto) 14.4 % (20.0-40.0) L 05/13/17 07:04 [place] % (Auto) 8.1 % (0.0-10.0) 05/13/17 07:04 Eos % (Auto) 3.2 % (0.0-4.0) 05/13/17 07:04 Baso % (Auto) 1.1 % (0.0-2.0) 05/13/17 07:04 Neut # 5.2 K/uL (1.8-7.0) 05/13/17 07:04 Lymph # 1.0 K/uL (1.0-4.3) 05/13/17 07:04 [place] # 0.6 K/uL (0.0-0.8) 05/13/17 07:04 Eos # 0.2 K/uL (0.0-0.7) 05/13/17 07:04 Baso # 0.1 K/uL (0.0-0.2) 05/13/17 07:04 ESR 57 mm/hr (0-15) H 05/07/17 20:25 PT 11.0 SECONDS (9.7-12.2) 05/07/17 20:25 INR 1.0 05/07/17 20:25 APTT 30 SECONDS (21-34) 05/07/17 20:25 Sodium 135 mmol/L (132-148) 05/13/17 07:04 Potassium 4.1 mmol/L (3.6-5.2) 05/13/17 07:04 Chloride 102 mmol/L (98-107) 05/13/17 07:04 Carbon Dioxide 29 mmol/L (22-30) 05/13/17 07:04 Anion Gap 8 (10-20) L 05/13/17 07:04 BUN 16 mg/dL (9-20) 05/13/17 07:04 Creatinine 1.1 mg/dL (0.8-1.5) 05/13/17 07:04 Est GFR ( Amer) > 60 05/13/17 07:04 Est GFR (Non-Af Amer) > 60 05/13/17 07:04 Random Glucose 95 mg/dL (75-110) 05/13/17 07:04 Uric Acid 8.1 mg/dL (3.5-8.5) 05/10/17 07:33 Calcium 8.0 mg/dl (8.6-10.4) L 05/13/17 07:04 Total Bilirubin 0.7 mg/dL (0.2-1.3) 05/13/17 07:04 AST 12 U/L (17-59) L D 05/13/17 07:04 ALT 6 U/L (21-72) L D 05/13/17 07:04 Alkaline Phosphatase 48 U/L (38-126) 05/13/17 07:04 C-React Prot High Sens 10.59 mg/L (1.00-3.00) H 05/07/17 20:25 Total Protein 6.5 g/dL (6.3-8.3) 05/13/17 07:04 Albumin 3.3 g/dL (3.5-5.0) L 05/13/17 07:04 Globulin 3.2 gm/dL (2.2-3.9) 05/13/17 07:04 Albumin/Globulin Ratio 1.0 (1.0-2.1) 05/13/17 07:04 Vancomycin Trough 16.6 ug/mL (5.0-10.0) H 05/13/17 11:09 Discharge Exam - Head Exam Head Exam: NORMOCEPHALIC - Eye Exam Eye Exam: Normal appearance Pupil Exam: NORMAL ACCOMODATION - ENT Exam ENT Exam: Normal Exam - Neck Exam Neck exam: Normal Inspection - Respiratory Exam Respiratory Exam: Decreased Breath Sounds - Cardiovascular Exam Cardiovascular Exam: REGULAR RHYTHM - GI/Abdominal Exam GI & Abdominal Exam: Hyperactive Bowel Sounds - Rectal Exam Rectal Exam: Deferred - Exam Exam: NORMAL INSPECTION - Extremities Exam Extremities exam: tenderness - Back Exam Back exam: NORMAL INSPECTION - Neurological Exam Neurological exam: Oriented x3 - Psychiatric Exam Psychiatric exam: Normal Affect (vasvular ulcerations bilaterally) Discharge Plan - Follow Up Plan Condition: FAIR Disposition: REHAB FACILITY/REHAB UNIT Patient education suggested?: No Instructions: Vancomycin (By injection), MRSA (Methicillin Resistant Staphylococcus Aureus) (GEN), Peripherally Inserted Central Catheters and Midline Catheters (DC), Venous Insufficiency (DC) Additional Instructions: -CONTINUE VANCOMYCIN 1 GM IV Q12 HOURS X 7 MORE DAYS (STARTED ON 05/16/17 AND LAST DOSE TO BE GIVEN DURING THE EVENING OF 05/22/17). -PICC LINE CARE PER FACILITY PROTOCOL. -FALL PRECAUTIONS. -WOUND CARE FOR BILATERAL LOWER EXTREMITIES: Santyl moist to dry dressing to be done daily. prior to applying santyl to both ulcers, must clean both ulcers well using moistened 4 x 4's to help with removal of thick yellow fibrous base. Dressings with Santyl MUST be moist to dry dressings and must be done daily to optimize santyl enzymatic actions. -FOR ANY QUESTIONS REGARDING HOSPITALIZATION, CONTACT DR. BROWN'S OFFICE. Referrals: Daquan Brown MD [Staff Provider] - Castillo Yang MD [Staff Provider] - Sudarshan Delogn MD [Staff Provider] -
== END 2017-05-17 13:43 | DRG 592 ==
LOC: C.ER 17:49 → C.9E 21:26 → C.3T 05-08 18:14
PROVIDERS: ADMIT Internal Medicine; ATTEND Internal Medicine
DX: L97.929 Non-pressure chronic ulcer of unspecified part of left lower leg with unspecified severity (principal); L97.919 Non-pressure chronic ulcer of unspecified part of right lower leg with unspecified severity; A41.9 Sepsis, unspecified organism; J81.1 Chronic pulmonary edema; L03.116 Cellulitis of left lower limb; L03.115 Cellulitis of right lower limb; I13.10 Hypertensive heart and chronic kidney disease without heart failure, with stage 1 through stage 4 chronic kidney disease, or unspecified chronic kidney disease; E66.01 Morbid (severe) obesity due to excess calories; B95.62 Methicillin resistant Staphylococcus aureus infection as the cause of diseases classified elsewhere; I87.2 Venous insufficiency (chronic) (peripheral); N18.9 Chronic kidney disease, unspecified; I87.8 Other specified disorders of veins; G47.30 Sleep apnea, unspecified; J45.909 Unspecified asthma, uncomplicated; M19.90 Unspecified osteoarthritis, unspecified site; M10.9 Gout, unspecified; E78.00 Pure hypercholesterolemia, unspecified; Z86.718 Personal history of other venous thrombosis and embolism; Z87.01 Personal history of pneumonia (recurrent); Z87.440 Personal history of urinary (tract) infections; Z87.442 Personal history of urinary calculi

== ENCOUNTER 2017-08-28 13:29 | Inpatient (IN) | payer MEDICARE ==
[2017-08-28 13:29] VITALS: BMI 42.5
--- NOTE | 2017-08-28 14:40 | C.PDOC ---
History Of Present Illness 52yo male, with history of chronic ulcers to his bilateral lower legs, presents to the ED for evaluation of worsening ulcers. Patient reports he has been following Dr. Peres, who recently redressed his wounds. Patient states the wound is worse on his left lower extremity. He denies any fever, chills, chest pain, abdominal pain. He has no other medical complaints. PMD: Dr. rBown Time Seen by Provider: 08/28/17 14:16 Chief Complaint (Nursing): Abnormal Skin Integrity History Per: Patient History/Exam Limitations: no limitations Onset/Duration Of Symptoms: Persistent Current Symptoms Are (Timing): Still Present Location Of Injury: Right: Leg (worse on LLE), Left: Leg, Anterior: Leg Additional History Per: Patient Past Medical History Reviewed: Historical Data, Nursing Documentation, Vital Signs Vital Signs: Last Vital Signs Temp 97.5 F L 08/28/17 13:55 Pulse 90 08/28/17 13:55 Resp 20 08/28/17 13:55 BP 105/65 08/28/17 13:55 Pulse Ox 96 08/28/17 15:27 - Medical History PMH: Anemia, Arthritis, Asthma, Bronchitis, Deep Vein Thrombosis, Gastritis, Gall Bladder Disease, HTN, Hypercholesterolemia, Kidney Stones, Peripheral Edema , Pneumonia, Chronic Kidney Disease, Sleep Apnea - [facility] Procedures CLOSURE SKIN & SUBCUTANEOUS NEC (12/01/12) INJECT STEROID (03/29/14) INJECT/INFUSE NEC (03/29/14) INJECTION INTO JOINT (03/29/14) INSERTION OF INFUSION DEV INTO SUP VENA CAVA, PERC APPROACH (11/15/15) INTRODUCTION OF OTH THERAP SUBST INTO MUSCLE, PERC APPROACH (10/07/15) REPAIR ABDOMINAL WALL, EXTERNAL APPROACH (10/07/15) TRANSFUSE NONAUT FROZEN PLASMA IN PERIPH VEIN, PERC (10/07/15) TRANSFUSE NONAUT RED BLOOD CELLS IN PERIPH VEIN, PERC (10/07/15) Family History: States: Unknown Family Hx - Social History Hx Tobacco Use: No Hx Alcohol Use: Yes (social) Hx Substance Use: No - Immunization History Hx Tetanus Toxoid Vaccination: No Hx Influenza Vaccination: Yes Hx Pneumococcal Vaccination: Yes Review Of Systems Except As Marked, All Systems Reviewed And Found Negative. Constitutional: Negative for: Fever, Chills Cardiovascular: Negative for: Chest Pain Respiratory: Negative for: Shortness of Breath Skin: Positive for: Other (ulcers on bilateral lower extremities) Physical Exam - Physical Exam Appears: Non-toxic, No Acute Distress Skin: Warm, Dry Head: Atraumatic, Normacephalic Eye(s): bilateral: Normal Inspection, PERRL Neck: Normal ROM, Supple Chest: Symmetrical Cardiovascular: Rhythm Regular Respiratory: Normal Breath Sounds Gastrointestinal/Abdominal: Normal Exam, Soft, No Tenderness Extremity: Normal ROM, Other (Left medial anterior tib/fib midway with 10cm x 6cm ulcer with purulent drainage. Right medial anterior tib/fib midway with 2cm x 2cm ulcer.) Neurological/Psych: Oriented x3 ED Course And Treatment - Laboratory Results Result Diagrams: 08/28/17 14:44 08/28/17 14:44 ECG: Interpreted By Me, Viewed By Me ECG Rhythm: Sinus Rhythm, R BBB (incomplete) Interpretation Of ECG: LVH, no ST/T changes Rate From EC O2 Sat by Pulse Oximetry: 96 (RA) Pulse Ox Interpretation: Normal Medical Decision Making Medical Decision Making: Impression: Chronic wounds to bilateral lower legs Plan: [address] Peres who reports patient has been on Cippro and Bactrim with no improvement in his wounds. Plan for admission under Dr. Brown. Dr. Peres requesting podiatry resident to be made aware of case. 1436 Case discussed with podiatry resident who will evaluate patient at bedside. Labs and EKG ordered. [address] Brown who accepts patient for admission. Disposition Discussed With Dr.: Daquan Brown Doctor Will See Patient In The: Hospital Counseled Patient/Family Regarding: Studies Performed, Diagnosis - Disposition Disposition: HOSPITALIZED Disposition Time: 15:18 Condition: FAIR - Clinical Impression Clinical Impression: Diabetic ulcer of ankle - Scribe Statement The provider has reviewed the documentation as recorded by the Scribe (Honey Sung) Provider Attestation: All medical record entries made by the Scribe were at my direction and personally dictated by me. I have reviewed the chart and agree that the record accurately reflects my personal performance of the history, physical exam, medical decision making, and the department course for this patient. I have also personally directed, reviewed, and agree with the discharge instructions and disposition.
[2017-08-28 14:52] LABS: BASO # 0.1 K/uL (0.0-0.2); BASO % 0.7 % (0.0-2.0); EOS # 0.1 K/uL (0.0-0.7); EOS % 0.7 % (0.0-4.0); HEMOGLOBIN 13.5 g/dL (12.0-18.0); LYMPH # 1.3 K/uL (1.0-4.3); LYMPH % 12.5 % (20.0-40.0); MEAN CELL VOLUME 86.6 fL (80.0-94.0); MEAN CORPUSCULAR HEMOGLOBIN 29.9 pg (27.0-31.0); MEAN CORPUSCULAR HGB CONC 34.5 g/dL (33.0-37.0); MEAN PLATELET VOLUME 7.8 fL (7.2-11.7); MONO # 0.8 K/uL (0.0-0.8); MONO % 7.4 % (0.0-10.0); NEUT # 8.3 K/uL (1.8-7.0); NEUT % 78.7 % (50.0-75.0); RBC 4.54 Mil/uL (4.40-5.90); RED CELL DISTRIBUTION WIDTH 14.2 % (11.5-14.5); WHITE BLOOD COUNT 10.6 K/uL (4.8-10.8)
[2017-08-28 14:59] LABS: ALB/GLOB RATIO 0.8 (1.0-2.1); ALBUMIN 4.2 g/dL (3.5-5.0); CALCIUM 9.2 mg/dl (8.6-10.4); GFR AFRICAN-AMERICAN > 60; GFR NON-AFRICAN AMERICAN > 60
[2017-08-28 15:01] LABS: ALT/SGPT < 6 U/L (21-72); AST/SGOT 25 U/L (17-59); BLOOD UREA NITROGEN 16 mg/dL (9-20)
--- NOTE | 2017-08-28 15:04 | CP.PCM.CON ---
History of Present Illness - History of Present Illness History of Present Illness: Podiatry Consult note for Dr. Peres 52 year old male with PMHx including Anemia, Arthritis, Asthma, Bronchitis, Deep Vein Thrombosis, Gastritis, Gall Bladder Disease, HTN was seen at bedside for chronic non-healing wounds. Patient states that he saw Dr. Peres today and he sent him here. He states that the wound are painful when touched. He admits that he was taking oral antibiotics. He currently denies any n/v/f/c/sob/cp. Past Patient History - Infectious Disease Hx of Infectious Diseases: None - Tetanus Immunizations Tetanus Immunization: Up to Date - Past Medical History & Family History Past Medical History?: Yes - Past Social History Smoking Status: Never Smoked - CARDIAC Hx Hypercholesterolemia: Yes Hx Hypertension: Yes Hx Peripheral Edema: Yes - PULMONARY Hx Asthma: Yes Hx Bronchitis: Yes Hx Pneumonia: Yes Hx Sleep Apnea: Yes - NEUROLOGICAL Hx Neurological Disorder: No - HEENT Hx HEENT Problems: No - RENAL Hx Chronic Kidney Disease: Yes Hx Kidney Stones: Yes - ENDOCRINE/METABOLIC Hx Endocrine Disorders: No - HEMATOLOGICAL/ONCOLOGICAL Hx Anemia: Yes - INTEGUMENTARY Hx Dermatological Problems: No Hx Cellulitis: Yes - MUSCULOSKELETAL/RHEUMATOLOGICAL Hx Arthritis: Yes - GASTROINTESTINAL Hx Gall Bladder Disease: Yes Hx Gastritis: Yes - GENITOURINARY/GYNECOLOGICAL Hx Genitourinary Disorders: No - PSYCHIATRIC Hx Substance Use: No - SURGICAL HISTORY Hx Surgeries: Yes Hx Arthroscopy: Yes Hx Herniorrhaphy: Yes (2010) Hx Vascular Surgery: Yes Other/Comment: Vena Cava Filter on R groin for DVT L Leg in 2009. Mar 2015 R leg clot. 2009 L leg clot - ANESTHESIA Hx Anesthesia: Yes Hx Anesthesia Reactions: No Hx Malignant Hyperthermia: No Meds Allergies/Adverse Reactions: Allergies Allergy/AdvReac Type Severity Reaction Status Date / Time Penicillins Allergy Severe ANAPHYLAXIS Verified 08/28/17 13:58 Physical Exam - Constitutional Appears: Well, Non-toxic, No Acute Distress - Extremities Exam Additional comments: Lower extremity focused exam: Vasc:DP and PT pulses faintly palpable b/l. CFT > 3 seconds to all digits b/l. Skin temperature warm to warm from proximal to distal Neuro: Gross sensation diminished b/l Ortho:Tenderness on palpation to leg wounds b/l Derm:Open ulceration noted to the anterior aspect of the left leg measure approximately 10 cm by 6 cm by 0.2 cm with a fibrogranular base, with mild amount of purulence noted, no malodor noted. Open ulceration noted to the anterior aspect of right leg measuring approximately 2cm by 2 cm with fibrogranular base, no malodor noted. Erythema noted around wound sites. - Neurological Exam Neurological exam: Alert, Oriented x3 - Psychiatric Exam Psychiatric exam: Normal Affect, Normal Mood Results - Vital Signs Recent Vital Signs: Last Vital Signs Temp 97.5 F L 08/28/17 13:55 Pulse 90 08/28/17 13:55 Resp 20 08/28/17 13:55 BP 105/65 08/28/17 13:55 Pulse Ox 96 08/28/17 14:45 - Labs Result Diagrams: 08/28/17 14:44 08/28/17 14:44 Labs: Laboratory Results - last 24 hr 08/28/17 08/28/17 14:44 14:44 WBC 10.6 RBC 4.54 Hgb 13.5 Hct 39.3 MCV 86.6 MCH 29.9 MCHC 34.5 RDW 14.2 Plt Count 401 H D MPV 7.8 Neut % (Auto) 78.7 H Lymph % (Auto) 12.5 L [place] % (Auto) 7.4 Eos % (Auto) 0.7 Baso % (Auto) 0.7 Neut # (Auto) 8.3 H Lymph # (Auto) 1.3 [place] # (Auto) 0.8 Eos # (Auto) 0.1 Baso # (Auto) 0.1 Sodium 141 Potassium 4.8 Chloride 103 Carbon Dioxide 22 Anion Gap 20 BUN 16 Creatinine 1.1 Est GFR ( Amer) > 60 Est GFR (Non-Af Amer) > 60 Random Glucose 90 Calcium 9.2 Total Bilirubin 1.3 AST 25 ALT < 6 L Alkaline Phosphatase 63 Total Protein 9.3 H Albumin 4.2 Globulin 5.1 H Albumin/Globulin Ratio 0.8 L Assessment & Plan - Assessment and Plan (Free Text) Assessment: 52 year old male with bilateral chronic non-healing wounds Plan: patient examined and evaluated discussed in detail with attending, Dr. Peres labs, chart, vitals reviewed;afebrile, WBC 10.[address] Yang consulted, recs appreciated AVB and PVR ordered wound culture obtained dressed with shila wright, [facility] podiatry will cont to follow patient while in house
--- NOTE | 2017-08-28 15:32 | RAD ---
HISTORY: admission COMPARISON: 05/07/2017 FINDINGS: LUNGS: No active pulmonary disease. PLEURA: No significant pleural effusion identified, no pneumothorax apparent. CARDIOVASCULAR: Cardiomegaly. No evidence of acute, significant cardiovascular disease. OSSEOUS STRUCTURES: No significant abnormalities. VISUALIZED UPPER ABDOMEN: Normal. OTHER FINDINGS: None. IMPRESSION: No active disease. No significant interval change compared to the prior examination(s).
[2017-08-28] MEDS: Collagenase 250 Units/gm Ointment(30 gm) TOP SCH (16:26)
[2017-08-28] MEDS ORDERED: NABUMETONE 750 MG PO SCH (18:00)
--- NOTE | 2017-08-28 20:08 | CP.PCM.HP ---
History of Present Illness - History of Present Illness History of Present Illness: 52 year old who developed vascular ulcers on both lower extremities. Patient is obese and suffers fom degenerative arthritis, hypertension, and recurrent phlebites. Upon evaluation hospitalization was suggested. Present on Admission - Present on Admission Any Indicators Present on Admission: No History of DVT/PE: No History of Uncontrolled Diabetes: No Urinary Catheter: No Decubitus Ulcer Present: No History Surgical Site Infection Following: None Review of Systems - Cardiovascular Cardiovascular: Dyspnea on Exertion, Leg Edema, Leg Ulcers - Respiratory Respiratory: Dyspnea on Exertion - Gastrointestinal Gastrointestinal: Belching - Musculoskeletal Musculoskeletal: Arthralgias - Integumentary Integumentary: Dry Skin - Endocrine Endocrine: Fatigue Past Patient History - Infectious Disease Hx of Infectious Diseases: None, C.diff - Tetanus Immunizations Tetanus Immunization: Up to Date - Past Medical History & Family History Past Medical History?: Yes - Past Social History Smoking Status: Never Smoked Chewing Tobacco Use: No Cigar Use: No Alcohol: None Drugs: Denies Home Situation {Lives}: With Family - CARDIAC Hx Hypercholesterolemia: Yes Hx Hypertension: Yes Hx Peripheral Edema: Yes - PULMONARY Hx Asthma: Yes Hx Bronchitis: Yes Hx Pneumonia: Yes Hx Respiratory Tract Infection: Yes Hx Sleep Apnea: Yes - NEUROLOGICAL Hx Neurological Disorder: No - HEENT Hx HEENT Problems: No - RENAL Hx Chronic Kidney Disease: Yes Hx Kidney Stones: Yes - ENDOCRINE/METABOLIC Hx Endocrine Disorders: No - HEMATOLOGICAL/ONCOLOGICAL Hx Anemia: Yes - INTEGUMENTARY Hx Dermatological Problems: No Hx Cellulitis: Yes - MUSCULOSKELETAL/RHEUMATOLOGICAL Hx Arthritis: Yes Hx Back Pain: Yes - GASTROINTESTINAL Hx Gall Bladder Disease: Yes Hx Gastritis: Yes - GENITOURINARY/GYNECOLOGICAL Hx Genitourinary Disorders: No - PSYCHIATRIC Hx Depression: Yes Hx Substance Use: No - SURGICAL HISTORY Hx Surgeries: Yes Hx Arthroscopy: Yes Hx Herniorrhaphy: Yes (2010) Hx Vascular Surgery: Yes Other/Comment: Vena Cava Filter on R groin for DVT L Leg in 2009. Mar 2015 R leg clot. 2009 L leg clot - ANESTHESIA Hx Anesthesia: Yes Hx Anesthesia Reactions: No Hx Malignant Hyperthermia: No Meds Allergies/Adverse Reactions: Allergies Allergy/AdvReac Type Severity Reaction Status Date / Time Penicillins Allergy Severe ANAPHYLAXIS Verified 08/28/17 13:58 Physical Exam - Constitutional Appears: No Acute Distress - Head Exam Head Exam: NORMOCEPHALIC - Eye Exam Eye Exam: Normal appearance Pupil Exam: NORMAL ACCOMODATION - ENT Exam ENT Exam: Normal Exam - Neck Exam Neck exam: Positive for: Normal Inspection - Respiratory Exam Respiratory Exam: Decreased Breath Sounds - Cardiovascular Exam Cardiovascular Exam: REGULAR RHYTHM - GI/Abdominal Exam GI & Abdominal Exam: Hyperactive Bowel Sounds - Rectal Exam Rectal Exam: Deferred - Exam Exam: NORMAL INSPECTION - Extremities Exam Extremities exam: Positive for: pedal edema - Back Exam Back exam: NORMAL INSPECTION - Neurological Exam Neurological exam: Oriented x3 - Psychiatric Exam Psychiatric exam: Depressed - Skin Skin Exam: Dry Results - Vital Signs Recent Vital Signs: Last Vital Signs Temp 98.6 F 08/28/17 18:56 Pulse 80 08/28/17 18:56 Resp 20 08/28/17 18:56 BP 108/74 08/28/17 18:56 Pulse Ox 96 08/28/17 18:56 - Labs Result Diagrams: 08/28/17 14:44 08/28/17 14:44 Labs: Laboratory Results - last 24 hr 08/28/17 08/28/17 14:44 14:44 WBC 10.6 RBC 4.54 Hgb 13.5 Hct 39.3 MCV 86.6 MCH 29.9 MCHC 34.5 RDW 14.2 Plt Count 401 H D MPV 7.8 Neut % (Auto) 78.7 H Lymph % (Auto) 12.5 L [place] % (Auto) 7.4 Eos % (Auto) 0.7 Baso % (Auto) 0.7 Neut # (Auto) 8.3 H Lymph # (Auto) 1.3 [place] # (Auto) 0.8 Eos # (Auto) 0.1 Baso # (Auto) 0.1 Sodium 141 Potassium 4.8 Chloride 103 Carbon Dioxide 22 Anion Gap 20 BUN 16 Creatinine 1.1 Est GFR ( Amer) > 60 Est GFR (Non-Af Amer) > 60 Random Glucose 90 Calcium 9.2 Total Bilirubin 1.3 AST 25 ALT < 6 L Alkaline Phosphatase 63 Total Protein 9.3 H Albumin 4.2 Globulin 5.1 H Albumin/Globulin Ratio 0.8 L Assessment & Plan (1) Bilateral leg ulcer Status: Acute (2) Degenerative joint disease Status: Acute Priority: Medium (3) Hypertension Status: Acute Priority: Low (4) Obesity Status: Chronic Priority: Medium
--- NOTE | 2017-08-29 09:08 | CP.PCM.CON ---
<Karlee Chaudhari - Last Filed: 08/29/17 15:21> History of Present Illness - History of Present Illness History of Present Illness: 52 year old male with a past medical history of hypertension, chronic lower extremity edema, sleep apnea, dyslipidemia, multiple DVTs in the past (not on oral anticoagulation or antiplatelet) who presents with bilateral lower extremity wounds and referred to the ED by his retail account executive Dr. Peres. Patient reports he is able to walk without any pain in legs. He reports since 2009 his legs have been swollen after having a DVT. He reports smoking from age [age], denies any history of diabetes. The patient does report having a history of anemia of unknown origin for which he takes iron supplements for. he reports never being able to follow up with a laboratory tester in this regard. Otherwise, he denies any fever, chills, chest pain, nausea, vomiting, or claudication. PMH: as above Allergies: Penicillin Past Surgical History: IVC filter, abdominal hernia repair Social: Denies alcohol or illict drug use; 15 pack year history of smoking in teenage years Family history: Denies Past Patient History - Infectious Disease Hx of Infectious Diseases: None, C.diff - Tetanus Immunizations Tetanus Immunization: Up to Date - Past Medical History & Family History Past Medical History?: Yes - Past Social History Smoking Status: Former Smoker - CARDIAC Hx Cardiac Disorders: Yes Hx Hypercholesterolemia: Yes Hx Hypertension: Yes Hx Peripheral Edema: Yes - PULMONARY Hx Respiratory Disorders: Yes Hx Asthma: Yes Hx Bronchitis: Yes Hx Pneumonia: Yes Hx Respiratory Tract Infection: Yes Hx Sleep Apnea: Yes - NEUROLOGICAL Hx Neurological Disorder: No - HEENT Hx HEENT Problems: No - RENAL Hx Chronic Kidney Disease: Yes Hx Kidney Stones: Yes - ENDOCRINE/METABOLIC Hx Endocrine Disorders: No - HEMATOLOGICAL/ONCOLOGICAL Hx Blood Disorders: Yes Hx Anemia: Yes Hx Blood Transfusions: Yes - INTEGUMENTARY Hx Dermatological Problems: No Hx Cellulitis: Yes - MUSCULOSKELETAL/RHEUMATOLOGICAL Hx Musculoskeletal Disorders: No Hx Falls: No - GASTROINTESTINAL Hx Gastrointestinal Disorders: Yes Hx Gall Bladder Disease: Yes Hx Gastritis: Yes - GENITOURINARY/GYNECOLOGICAL Hx Genitourinary Disorders: No - PSYCHIATRIC Hx Psychophysiologic Disorder: No Hx Substance Use: No - SURGICAL HISTORY Hx Surgeries: Yes Hx Arthroscopy: Yes Hx Herniorrhaphy: Yes (2010) Hx Vascular Surgery: Yes Other/Comment: Vena Cava Filter on R groin for DVT L Leg in 2009. Mar 2015 R leg clot. 2008 L leg clot - ANESTHESIA Hx Anesthesia: Yes Hx Anesthesia Reactions: No Hx Malignant Hyperthermia: No Meds Allergies/Adverse Reactions: Allergies Allergy/AdvReac Type Severity Reaction Status Date / Time Penicillins Allergy Severe ANAPHYLAXIS Verified 08/28/17 13:58 - Medications Medications: Current Medications Collagenase (Santyl) 0 gm TOP DAILY [facility] Last Admin: 08/28/17 16:26 Dose: 1 applic Enoxaparin Sodium (Lovenox) 40 mg SC DAILY [facility] Ferrous Gluconate (Fergon) 324 mg PO TID [facility] Last Admin: 08/28/17 19:20 Dose: 324 mg Home Med (Nabumetone [Relafen]) 750 mg PO BID [facility] Lisinopril (Zestril) 5 mg PO DAILY [facility] Pantoprazole Sodium (Protonix Ec Tab) 40 mg PO DAILY [facility] Physical Exam - Constitutional Appears: Non-toxic, No Acute Distress - Head Exam Head Exam: ATRAUMATIC, NORMOCEPHALIC - Eye Exam Eye Exam: EOMI, Normal appearance - ENT Exam ENT Exam: Mucous Membranes Moist, Normal Oropharynx - Neck Exam Neck exam: Positive for: Normal Inspection - Respiratory Exam Respiratory Exam: Clear to Auscultation Bilateral, NORMAL BREATHING PATTERN. absent: Accessory Muscle Use - Cardiovascular Exam Cardiovascular Exam: RRR, +S1, +S2 - GI/Abdominal Exam GI & Abdominal Exam: Normal Bowel Sounds, Soft. absent: Guarding - Extremities Exam Additional comments: 3/4 bilateral lower extremity edema, left wound dressing wet - Neurological Exam Neurological exam: Alert, Oriented x3 - Psychiatric Exam Psychiatric exam: Normal Affect, Normal Mood - Skin Skin Exam: Dry, Intact, Normal Color, Warm Results - Vital Signs Recent Vital Signs: Last Vital Signs Temp 97.6 F 08/29/17 07:25 Pulse 66 08/29/17 07:25 Resp 18 08/29/17 07:25 BP 104/69 08/29/17 07:25 Pulse Ox 96 08/29/17 07:25 - Labs Result Diagrams: 08/28/17 14:44 08/28/17 14:44 Labs: Laboratory Results - last 24 hr 08/28/17 08/28/17 14:44 14:44 WBC 10.6 RBC 4.54 Hgb 13.5 Hct 39.3 MCV 86.6 MCH 29.9 MCHC 34.5 RDW 14.2 Plt Count 401 H D MPV 7.8 Neut % (Auto) 78.7 H Lymph % (Auto) 12.5 L [place] % (Auto) 7.4 Eos % (Auto) 0.7 Baso % (Auto) 0.7 Neut # (Auto) 8.3 H Lymph # (Auto) 1.3 [place] # (Auto) 0.8 Eos # (Auto) 0.1 Baso # (Auto) 0.1 Sodium 141 Potassium 4.8 Chloride 103 Carbon Dioxide 22 Anion Gap 20 BUN 16 Creatinine 1.1 Est GFR ( Amer) > 60 Est GFR (Non-Af Amer) > 60 Random Glucose 90 Calcium 9.2 Total Bilirubin 1.3 AST 25 ALT < 6 L Alkaline Phosphatase 63 Total Protein 9.3 H Albumin 4.2 Globulin 5.1 H Albumin/Globulin Ratio 0.8 L Assessment & Plan - Assessment and Plan (Free Text) Assessment: 52 year old male with a past medical history of chronic lower extremity edema, 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 Plan: 1) Bilateral non-healing ulcers - Arterial US - HgA1c, lipid panel, and BNP ordered 2) Lower extremity edema - Weight checks daily - TTE ordered - Date & Time Date: 08/29/17 Time: 15:17 <Jose Prince - Last Filed: 08/30/17 13:09> Meds - Medications Medications: Current Medications Collagenase (Santyl) 0 gm TOP DAILY [facility] Last Admin: 08/30/17 10:33 Dose: Not Given Enoxaparin Sodium (Lovenox) 40 mg SC DAILY [facility] Last Admin: 08/30/17 10:19 Dose: 40 mg Ferrous Gluconate (Fergon) 324 mg PO TID [facility] Last Admin: 08/30/17 13:01 Dose: 324 mg Vancomycin/Sodium Chloride (Vancomycin 1 Gm/Ns 200 Ml) 1 gm in 200 mls @ 133.333 mls/hr IVPB Q12H [facility] PRN Reason: Protocol Stop: 09/03/17 12:01 Last Admin: 08/30/17 12:02 Dose: 133.333 mls/hr Ciprofloxacin (Cipro 400mg/200ml Dsw) 400 mg in 200 mls @ 133 mls/hr IVPB Q12H [facility] PRN Reason: Protocol Last Admin: 08/30/17 10:30 Dose: 133 mls/hr Ibuprofen (Motrin Tab) 600 mg PO Q12H PRN PRN Reason: Pain, Mild (1-3) Last Admin: 08/30/17 10:24 Dose: 600 mg Lisinopril (Zestril) 5 mg PO DAILY [facility] Last Admin: 08/30/17 10:19 Dose: 5 mg Pantoprazole Sodium (Protonix Ec Tab) 40 mg PO DAILY [facility] Last Admin: 08/30/17 10:19 Dose: 40 mg Results - Vital Signs Recent Vital Signs: Last Vital Signs Temp 97.5 F L 08/30/17 07:53 Pulse 65 08/30/17 07:53 Resp 18 08/30/17 07:53 BP 110/73 08/30/17 07:53 Pulse Ox 96 08/30/17 07:53 - Labs Result Diagrams: 08/28/17 14:44 08/28/17 14:44 Labs: Laboratory Results - last 24 hr 08/29/17 08/29/17 08/29/17 14:46 14:46 15:23 Hemoglobin A1c 5.4 NT-Pro-B Natriuret Pep 77.6 Triglycerides 124 D Cholesterol 201 H LDL Cholesterol Direct 111 HDL Cholesterol 38 Attending/Attestation - Attestation I have personally seen and examined this patient.: Yes I have fully participated in the care of the patient.: Yes I have reviewed all pertinent clinical information: Yes Notes (Text): 08/30/17 13:09 b/l non-healing ulcers hx of DVT's in the past not on AC venous/arterial duplex echo bnp
[2017-08-29] MEDS: Collagenase 250 Units/gm Ointment(30 gm) TOP SCH (09:13)
[2017-08-29] MEDS: Pantoprazole 40 mg EC Tab PO SCH (09:13)
[2017-08-29] MEDS: Enoxaparin 40 mg Syringe SC SCH (09:14)
[2017-08-29] MEDS ORDERED: Collagenase 250 Units/gm Ointment(30 gm) TOP SCH (10:00)
--- NOTE | 2017-08-29 10:41 | CP.PCM.CON ---
History of Present Illness - History of Present Illness History of Present Illness: Pt c/o ulcers on his lower legs, L>R, that have been treated with courses of antibiotics by his PMD without any improvement. was recently discharged from [facility] ( [place] ) Ulcers have recurred despite optimal out pt management Has IVC filter left leg and severe venous insuff Arterial studies will be done to assess arterial circulation Has allergy PCN IV antibiotics ordered empirically after reviewing old records extensively - Medical History PMH: Anemia, Arthritis, Asthma, Bronchitis, Deep Vein Thrombosis, Gastritis, HTN , Hypercholesterolemia, Kidney Stones, Peripheral Edema, Pneumonia, Chronic Kidney Disease, Sleep Apnea Other Surgeries: IVC filter Review of Systems - Constitutional Constitutional: As Per HPI - EENT Eyes: absent: As Per HPI, Blind Spots, Blurred Vision, Change in Vision, Decreased Night Vision, Diplopia, Discharge, Dry Eye, Exophthalmos, Floaters, Irritation, Itchy Eyes, Loss of Peripheral Vision, Pain, Photophobia, Requires Corrective Lenses, Sees Flashes, Spots in Vision, Tunnel Vision, Other Visual Disturbances, Loss of Vision, Other Ears: absent: As Per HPI, Decreased Hearing, Ear Discharge, Ear Pain, Tinnitus, Abnormal Hearing, Disequilibrium, Dizziness, Other Nose/Mouth/Throat: absent: As Per HPI, Epistaxis, Nasal Congestion, Nasal Discharge, Nasal Obstruction, Nasal Trauma, Nose Pain, Post Nasal Drip, Sinus Pain, Sinus Pressure, Bleeding Gums, Change in Voice, Dental Pain, Dry Mouth, Dysphagia, Halitosis, Hoarsness, Lip Swelling, Mouth Lesions, Mouth Pain, Odynophagia, Sore Throat, Throat Swelling, Tongue Swelling, Facial Pain, Neck Pain, Neck Mass, Other - Cardiovascular Cardiovascular: absent: As Per HPI, Acrocyanosis, Chest Pain, Chest Pain at Rest , Chest Pain with Activity, Claudication, Diaphoresis, Dyspnea, Dyspnea on Exertion, Edema, Irregular Heart Rhythm, Pain Radiating to Arm/Neck/Jaw, Leg Edema, Leg Ulcers, Lightheadedness, Orthopnea, Palpitations, Paroxysmal Nocturnal Dyspnea, Pedal Edema, Radiating Pain, Rapid Heart Rate, Slow Heart Rate, Syncope, Other - Respiratory Respiratory: As Per HPI - Gastrointestinal Gastrointestinal: absent: As Per HPI, Abdominal Pain, Belching, Bloating, Change in Bowel Habits, Change in Stool Character, Coffee Ground Emesis, Constipation, Cramping, Diarrhea, Dyspepsia, Dysphagia, Early Satiety, Excessive Flatus, Fecal Incontinence, Heartburn, Hematemesis, Hematochezia, Loose Stools, Melena, Nausea, Odynophagia, Temesmus, Vomiting, Other - Genitourinary Genitourinary: absent: As Per HPI, Change in Urinary Stream, Difficulty Urinating, Dysuria, Flank Pain, Hematuria, Pyuria, Nocturia, Urinary Incontinence, Urinary Frequency, Urinary Hesitance, Urinary Urgency, Voiding Freq/Small Amts, Freq UTI, Hx Renal/Bladder Calculi, Hx /Renal Surgery, Bladder Distension, Other - Musculoskeletal Musculoskeletal: absent: As Per HPI, Abnormal Gait, Arthralgias, Atrophy, Back Pain, Deformity, Joint Swelling, Limited Range of Motion, Loss of Height, Muscle Cramps, Muscle Weakness, Myalgias, Neck Pain, Numbness, Radiating Pain into Limb, Stiffness, Tingling, Other - Integumentary Integumentary: As Per HPI - Neurological Neurological: absent: As Per HPI, Abnormal Gait, Abnormal Hearing, Abnormal Movements, Abnormal Speech, Behavioral Changes, Burning Sensations, Confusion, Convulsions, Disequilibrium, Dizziness, Numbness, Focal Weakness, Frequent Falls , Headaches, Lack of Coordination, Loss of Vision, Memory Loss, Paresthesias, Radicular Pain, Restless Legs, Sensory Deficit, Syncope, Tingling, Tremor, Vertigo, Weakness, Other Visual Disturbances, Other - Psychiatric Psychiatric: absent: As Per HPI, Abnormal Sleep Pattern, Anhedonia, Anxiety, Auditory Hallucinations, Behavioral Changes, Change in Appetite, Change in Libido, Confusion, Depression, Difficulty Concentrating, Hallucinations, Homicidal Ideation, Hopelessness, Irritability, Memory Loss, Mood Swings, Panic Attacks, Paranoia, Suicidal Ideation, Visual Hallucinations, Tactile Hallucinations, Other - Endocrine Endocrine: absent: As Per HPI, Change in Body Appearance, Change in Libido, Cold Intolorance, Deepening of Voice, Excessive Sweating, Fatigue, Flushing, Heat Intolorance, Increase in Ring/Shoe/Hat Size, Palpitations, Polydipsia, Polyphagia, Polyuria, Other - Hematologic/Lymphatic Hematologic: absent: As Per HPI, Easy Bleeding, Easy Bruising, Lymphadenopathy, Other Past Patient History - Infectious Disease Hx of Infectious Diseases: None, C.diff - Tetanus Immunizations Tetanus Immunization: Up to Date - Past Medical History & Family History Past Medical History?: Yes - Past Social History Smoking Status: Former Smoker - CARDIAC Hx Cardiac Disorders: Yes Hx Hypercholesterolemia: Yes Hx Hypertension: Yes Hx Peripheral Edema: Yes - PULMONARY Hx Respiratory Disorders: Yes Hx Asthma: Yes Hx Bronchitis: Yes Hx Pneumonia: Yes Hx Respiratory Tract Infection: Yes Hx Sleep Apnea: Yes - NEUROLOGICAL Hx Neurological Disorder: No - HEENT Hx HEENT Problems: No - RENAL Hx Chronic Kidney Disease: Yes Hx Kidney Stones: Yes - ENDOCRINE/METABOLIC Hx Endocrine Disorders: No - HEMATOLOGICAL/ONCOLOGICAL Hx Blood Disorders: Yes Hx Anemia: Yes Hx Blood Transfusions: Yes - INTEGUMENTARY Hx Dermatological Problems: No Hx Cellulitis: Yes - MUSCULOSKELETAL/RHEUMATOLOGICAL Hx Musculoskeletal Disorders: No Hx Falls: No - GASTROINTESTINAL Hx Gastrointestinal Disorders: Yes Hx Gall Bladder Disease: Yes Hx Gastritis: Yes - GENITOURINARY/GYNECOLOGICAL Hx Genitourinary Disorders: No - PSYCHIATRIC Hx Psychophysiologic Disorder: No Hx Substance Use: No - SURGICAL HISTORY Hx Surgeries: Yes Hx Arthroscopy: Yes Hx Herniorrhaphy: Yes (2010) Hx Vascular Surgery: Yes Other/Comment: Vena Cava Filter on R groin for DVT L Leg in 2009. Mar 2015 R leg clot. 2009 L leg clot - ANESTHESIA Hx Anesthesia: Yes Hx Anesthesia Reactions: No Hx Malignant Hyperthermia: No Meds Allergies/Adverse Reactions: Allergies Allergy/AdvReac Type Severity Reaction Status Date / Time Penicillins Allergy Severe ANAPHYLAXIS Verified 08/28/17 13:58 - Medications Medications: Current Medications Collagenase (Santyl) 0 gm TOP DAILY [facility] Last Admin: 08/29/17 09:13 Dose: 1 applic Enoxaparin Sodium (Lovenox) 40 mg SC DAILY [facility] Last Admin: 08/29/17 09:14 Dose: 40 mg Ferrous Gluconate (Fergon) 324 mg PO TID [facility] Last Admin: 08/29/17 09:13 Dose: 324 mg Home Med (Nabumetone [Relafen]) 750 mg PO BID [facility] Vancomycin HCl 1,000 mg/ (Sodium Chloride) 250 mls @ 166.6 mls/hr IVPB Q12H [facility] PRN Reason: Protocol Ciprofloxacin (Cipro 400mg/200ml Dsw) 400 mg in 200 mls @ 133 mls/hr IVPB Q12H [facility] PRN Reason: Protocol Lisinopril (Zestril) 5 mg PO DAILY [facility] Last Admin: 08/29/17 09:13 Dose: 5 mg Pantoprazole Sodium (Protonix Ec Tab) 40 mg PO DAILY [facility] Last Admin: 08/29/17 09:13 Dose: 40 mg Physical Exam - Constitutional Appears: Non-toxic, Chronically Ill - Head Exam Head Exam: ATRAUMATIC, NORMOCEPHALIC - Eye Exam Eye Exam: EOMI, PERRL. absent: Scleral icterus - ENT Exam ENT Exam: Mucous Membranes Dry, Normal Oropharynx - Neck Exam Neck exam: Negative for: Lymphadenopathy - Respiratory Exam Respiratory Exam: Decreased Breath Sounds, Clear to Auscultation Bilateral - Cardiovascular Exam Cardiovascular Exam: REGULAR RHYTHM, +S1, +S2 - GI/Abdominal Exam GI & Abdominal Exam: Diminished Bowel Sounds, Soft. absent: Guarding, Rebound, Rigid, Tenderness - Rectal Exam Rectal Exam: Deferred - Exam Exam: NORMAL INSPECTION - Extremities Exam Extremities exam: Positive for: pedal edema, tenderness. Negative for: calf tenderness, pedal pulses present Additional comments: large necrotic ulcer left leg ant medial surface with necrotic base and foul smelling exudate and surrounding cellulitis smaller ulcer right leg with minimal exudate - Back Exam Back exam: absent: CVA tenderness (L), CVA tenderness (R) - Neurological Exam Neurological exam: Alert, CN II-XII Intact, Oriented x3, Reflexes Normal - Psychiatric Exam Psychiatric exam: Depressed - Skin Skin Exam: Dry Results - Vital Signs Recent Vital Signs: Last Vital Signs Temp 97.6 F 08/29/17 07:25 Pulse 66 08/29/17 07:25 Resp 18 08/29/17 07:25 BP 104/69 08/29/17 07:25 Pulse Ox 96 08/29/17 07:25 - Labs Result Diagrams: 08/28/17 14:44 08/28/17 14:44 Labs: Laboratory Results - last 24 hr 08/28/17 08/28/17 14:44 14:44 WBC 10.6 RBC 4.54 Hgb 13.5 Hct 39.3 MCV 86.6 MCH 29.9 MCHC 34.5 RDW 14.2 Plt Count 401 H D MPV 7.8 Neut % (Auto) 78.7 H Lymph % (Auto) 12.5 L [place] % (Auto) 7.4 Eos % (Auto) 0.7 Baso % (Auto) 0.7 Neut # (Auto) 8.3 H Lymph # (Auto) 1.3 [place] # (Auto) 0.8 Eos # (Auto) 0.1 Baso # (Auto) 0.1 Sodium 141 Potassium 4.8 Chloride 103 Carbon Dioxide 22 Anion Gap 20 BUN 16 Creatinine 1.1 Est GFR ( Amer) > 60 Est GFR (Non-Af Amer) > 60 Random Glucose 90 Calcium 9.2 Total Bilirubin 1.3 AST 25 ALT < 6 L Alkaline Phosphatase 63 Total Protein 9.3 H Albumin 4.2 Globulin 5.1 H Albumin/Globulin Ratio 0.8 L Assessment & Plan (1) Diabetic ulcer of ankle Status: Acute (2) Anemia Status: Acute Priority: Medium (3) Bilateral cellulitis of lower leg Status: Acute (4) Bilateral leg ulcer Status: Acute (5) Cellulitis Status: Acute (6) Chronic cutaneous venous stasis ulcer Status: Acute (7) Congestive heart failure due to high blood pressure Status: Acute (8) Coronary artery disease Status: Acute Priority: High (9) Hypertension Status: Acute (10) Sleep apnea Status: Acute (11) Obesity Status: Chronic Priority: Medium - Assessment and Plan (Free Text) Assessment: Has IVC filter left leg and severe venous insuff Arterial studies will be done to assess arterial circulation Has allergy PCN IV antibiotics ordered empirically after reviewing old records extensively
--- NOTE | 2017-08-29 11:10 | CP.PCM.PN ---
Subjective - Date & Time of Evaluation Date of Evaluation: 08/29/17 Time of Evaluation: 11:10 - Subjective Subjective: Podiatry Consult note for Dr. Peres 52 year old male was seen at bedside for chronic non-healing wounds. He admits to pain to his left leg. He currently denies any n/v/f/c/sob/cp. Objective - Vital Signs/Intake and Output Vital Signs (last 24 hours): Temp Pulse Resp BP Pulse Ox 97.6 F 66 18 104/69 96 08/29/17 07:25 08/29/17 07:25 08/29/17 07:25 08/29/17 07:25 08/29/17 07:25 - Medications Medications: Current Medications Collagenase (Santyl) 0 gm TOP DAILY [facility] Last Admin: 08/29/17 09:13 Dose: 1 applic Enoxaparin Sodium (Lovenox) 40 mg SC DAILY [facility] Last Admin: 08/29/17 09:14 Dose: 40 mg Ferrous Gluconate (Fergon) 324 mg PO TID [facility] Last Admin: 08/29/17 09:13 Dose: 324 mg Home Med (Nabumetone [Relafen]) 750 mg PO BID [facility] Vancomycin/Sodium Chloride (Vancomycin 1 Gm/Ns 200 Ml) 1 gm in 200 mls @ 133.333 mls/hr IVPB Q12H [facility] PRN Reason: Protocol Stop: 09/03/17 12:01 Ciprofloxacin (Cipro 400mg/200ml Dsw) 400 mg in 200 mls @ 133 mls/hr IVPB Q12H [facility] PRN Reason: Protocol Lisinopril (Zestril) 5 mg PO DAILY [facility] Last Admin: 08/29/17 09:13 Dose: 5 mg Pantoprazole Sodium (Protonix Ec Tab) 40 mg PO DAILY [facility] Last Admin: 08/29/17 09:13 Dose: 40 mg - Labs Labs: 08/28/17 14:44 08/28/17 14:44 - Constitutional Appears: Well, Non-toxic, No Acute Distress - Extremities Exam Additional comments: Lower extremity focused exam: Vasc: DP and PT pulses faintly palpable b/l. CFT > 3 seconds to all digits b/l. Skin temperature warm to warm from proximal to distal Neuro: Gross sensation diminished b/l Ortho: Tenderness on palpation to leg wounds b/l Derm:Open ulceration noted to the anterior aspect of the left leg measure approximately 10 cm by 6 cm by 0.3 cm with a fibrogranular base, with mild amount of purulence noted, moderate malodor noted. Open ulceration noted to the anterior aspect of right leg measuring approximately 2 cm by 2 cm with fibrogranular base, no malodor noted. Erythema noted around wound sites. - Neurological Exam Neurological Exam: Alert, Awake, Oriented x3 - Psychiatric Exam Psychiatric exam: Normal Affect, Normal Mood Assessment and Plan - Assessment and Plan (Free Text) Assessment: 52 year old male with bilateral chronic non-healing wounds Plan: patient examined and evaluated discussed in detail with attending, Dr. Peres labs, chart, vitals reviewed;afebrile, WBC 10.6 (08/28/17) IV abx per ID AVB and PVR-pending wound culture- gram + cocci dressed with santyl, telfa, [facility] podiatry will cont to follow patient while in house
--- NOTE | 2017-08-29 12:22 | CARD ---
APPROVED REPORT EKG Measurement Heart [id number] <Conclusion> Normal sinus rhythm Incomplete right bundle branch block Minimal voltage criteria for LVH, may be normal variant Borderline ECG
[2017-08-29] MEDS: Ciprofloxacin 400mg/200ml D5W 400 MG/200 ML BAG IVPB SCH ×2 (13:16→22:35)
[2017-08-29] MEDS: Vancomycin 1 gm/NS 200 ml 1 GM/200 ML BAG IVPB SCH ×2 (13:17→23:44)
[2017-08-29 15:05] LABS: HDL CHOLESTEROL 38 mg/dL (30-70)
[2017-08-29 15:17] LABS: LDL CHOLESTEROL 111 mg/dL (0-129)
--- NOTE | 2017-08-29 22:53 | CP.PCM.PN ---
Subjective - Date & Time of Evaluation Date of Evaluation: 08/29/17 Time of Evaluation: 13:30 - Subjective Subjective: Patient has bilateral leg ulcers.Weak pulses in the left lower extremity. Doppler studies requested of the lower extremities. Objective - Vital Signs/Intake and Output Vital Signs (last 24 hours): Temp Pulse Resp BP Pulse Ox 98.1 F 70 20 107/69 97 08/29/17 15:15 08/29/17 15:15 08/29/17 15:15 08/29/17 15:15 08/29/17 15:15 Intake and Output: 08/29/17 08/30/17 18:59 06:59 Intake Total 700 800 Output Total 400 Balance 300 800 - Medications Medications: Current Medications Collagenase (Santyl) 0 gm TOP DAILY [facility] Last Admin: 08/29/17 09:13 Dose: 1 applic Enoxaparin Sodium (Lovenox) 40 mg SC DAILY [facility] Last Admin: 08/29/17 09:14 Dose: 40 mg Ferrous Gluconate (Fergon) 324 mg PO TID [facility] Last Admin: 08/29/17 17:18 Dose: 324 mg Vancomycin/Sodium Chloride (Vancomycin 1 Gm/Ns 200 Ml) 1 gm in 200 mls @ 133.333 mls/hr IVPB Q12H [facility] PRN Reason: Protocol Stop: 09/03/17 12:01 Last Admin: 08/29/17 13:17 Dose: 133.333 mls/hr Ciprofloxacin (Cipro 400mg/200ml Dsw) 400 mg in 200 mls @ 133 mls/hr IVPB Q12H [facility] PRN Reason: Protocol Last Admin: 08/29/17 22:35 Dose: 133 mls/hr Ibuprofen (Motrin Tab) 600 mg PO Q12H [facility] PRN Reason: Pain, Mild (1-3) Lisinopril (Zestril) 5 mg PO DAILY [facility] Last Admin: 08/29/17 09:13 Dose: 5 mg Pantoprazole Sodium (Protonix Ec Tab) 40 mg PO DAILY [facility] Last Admin: 08/29/17 09:13 Dose: 40 mg - Labs Labs: 08/28/17 14:44 08/28/17 14:44 - Constitutional Appears: No Acute Distress - Head Exam Head Exam: NORMOCEPHALIC - Eye Exam Eye Exam: Normal appearance Pupil Exam: NORMAL ACCOMODATION - Neck Exam Neck Exam: Normal Inspection - Respiratory Exam Respiratory Exam: Decreased Breath Sounds - Cardiovascular Exam Cardiovascular Exam: REGULAR RHYTHM - GI/Abdominal Exam GI & Abdominal Exam: Hyperactive Bowel Sounds - Exam Exam: Circumcision, NORMAL INSPECTION - Extremities Exam Extremities Exam: Joint Swelling - Back Exam Back Exam: NORMAL INSPECTION - Neurological Exam Neurological Exam: Oriented x3 - Psychiatric Exam Psychiatric exam: Normal Affect - Skin Skin Exam: Dry Assessment and Plan (1) Bilateral leg ulcer Status: Acute (2) Degenerative joint disease Status: Acute (3) Hypertension Status: Acute (4) Obesity Status: Chronic
[2017-08-30] MEDS: Pantoprazole 40 mg EC Tab PO SCH (10:19)
[2017-08-30] MEDS: Enoxaparin 40 mg Syringe SC SCH ×2 (10:19→16:41)
[2017-08-30] MEDS: Ciprofloxacin 400mg/200ml D5W 400 MG/200 ML BAG IVPB SCH ×2 (10:30→22:40)
[2017-08-30] MEDS: Collagenase 250 Units/gm Ointment(30 gm) TOP SCH (10:33)
--- NOTE | 2017-08-30 10:39 | CP.PCM.PN ---
Subjective - Date & Time of Evaluation Date of Evaluation: 08/30/17 Time of Evaluation: 10:38 - Subjective Subjective: Podiatry Progress note for Dr. Peres 52 year old male was seen at bedside for chronic non-healing wounds. He states that the pain in his left leg is better. Seen resting comfortably at bedside. He currently denies any n/v/f/c/sob/cp. Objective - Vital Signs/Intake and Output Vital Signs (last 24 hours): Temp Pulse Resp BP Pulse Ox 97.5 F L 65 18 110/73 96 08/30/17 07:53 08/30/17 07:53 08/30/17 07:53 08/30/17 07:53 08/30/17 07:53 Intake and Output: 08/30/17 08/30/17 06:59 18:59 Intake Total 800 Balance 800 - Medications Medications: Current Medications Collagenase (Santyl) 0 gm TOP DAILY [facility] Last Admin: 08/30/17 10:33 Dose: Not Given Enoxaparin Sodium (Lovenox) 40 mg SC DAILY [facility] Last Admin: 08/30/17 10:19 Dose: 40 mg Ferrous Gluconate (Fergon) 324 mg PO TID [facility] Last Admin: 08/30/17 10:19 Dose: 324 mg Vancomycin/Sodium Chloride (Vancomycin 1 Gm/Ns 200 Ml) 1 gm in 200 mls @ 133.333 mls/hr IVPB Q12H [facility] PRN Reason: Protocol Stop: 09/03/17 12:01 Last Admin: 08/29/17 23:44 Dose: 133.333 mls/hr Ciprofloxacin (Cipro 400mg/200ml Dsw) 400 mg in 200 mls @ 133 mls/hr IVPB Q12H [facility] PRN Reason: Protocol Last Admin: 08/30/17 10:30 Dose: 133 mls/hr Ibuprofen (Motrin Tab) 600 mg PO Q12H [facility] PRN Reason: Pain, Mild (1-3) Last Admin: 08/30/17 10:24 Dose: 600 mg Lisinopril (Zestril) 5 mg PO DAILY [facility] Last Admin: 08/30/17 10:19 Dose: 5 mg Pantoprazole Sodium (Protonix Ec Tab) 40 mg PO DAILY [facility] Last Admin: 08/30/17 10:19 Dose: 40 mg - Labs Labs: 08/28/17 14:44 08/28/17 14:44 - Constitutional Appears: Well, Non-toxic, No Acute Distress - Extremities Exam Additional comments: Lower extremity focused exam: Vasc: DP and PT pulses faintly palpable b/l. CFT > 3 seconds to all digits b/l. Skin temperature warm to warm from proximal to distal Neuro: Gross sensation diminished b/l Ortho: Tenderness on palpation to leg wounds b/l Derm: Open ulceration noted to the anterior aspect of the left leg measure approximately 10 cm by 6 cm by 0.3 cm with a fibrogranular base, with mild amount of purulence noted, moderate malodor noted. Open ulceration noted to the anterior aspect of right leg measuring approximately 2 cm by 2 cm with fibrogranular base, no malodor noted. Erythema noted around wound sites. - Neurological Exam Neurological Exam: Alert, Awake, Oriented x3 - Psychiatric Exam Psychiatric exam: Normal Affect, Normal Mood Assessment and Plan - Assessment and Plan (Free Text) Assessment: 52 year old male with bilateral chronic non-healing wounds Plan: patient examined and evaluated discussed in detail with attending, Dr. Peres labs, chart, vitals reviewed;afebrile, WBC 10.6 (08/28/17) IV abx per ID AVB and PVR-pending wound culture- gram + cocci discussed with patient to possibility that in the future he may need a wound debridement dressed with carlos wright [facility] podiatry will cont to follow patient while in house
--- NOTE | 2017-08-30 10:55 | VASCLAB ---
PROCEDURE: Lower Extremity Venous Duplex Exam. HISTORY: non-healing ulcers PRIORS: Lower extremity ultrasound dated 08/29/2016. TECHNIQUE: Bilateral common femoral, femoral, popliteal and posterior tibial, peroneal and great saphenous veins were evaluated. Flow was assessed with color Doppler, compressibility, assessment of phasic flow and augmentation response. Report prepared by Castillo Abarca, SHEILA, RVT FINDINGS: RIGHT: 1. Common Femoral Vein: 1.1. Compressibility - Partial: Thrombus - Chronic : Flow - Reduced : Augmentation -Reduced: Reflux - None. 2. Femoral Vein: 2.1. Compressibility - Partial: Thrombus - Chronic : Flow - Reduced : Augmentation -Reduced: Reflux - None. 3. Popliteal Vein: 3.1. Compressibility - Partial: Thrombus - Chronic : Flow - Reduced : Augmentation -Reduced: Reflux - None. 4. Posterior Tibial Vein: 4.1. Compressibility - Fully compressible: Thrombus - None: Flow - Phasic: Augmentation -Normal: Reflux - None. 5. Peroneal Vein: 5.1. Compressibility - Fully compressible: Thrombus - None: Flow - Phasic: Augmentation -Normal: Reflux - None. 6. Great Saphenous Vein: 6.1. Compressibility - Fully compressible: Thrombus - None: Flow - Phasic: Augmentation - Normal: Reflux - None. LEFT: 1. Common Femoral Vein: 1.1. Compressibility - Partial: Thrombus - Chronic: Flow - Reduced : Augmentation -Reduced: Reflux - None. 2. Femoral Vein: 2.1. Compressibility - Partial: Thrombus - Chronic: Flow - Reduced : Augmentation -Reduced: Reflux - None. 3. Popliteal Vein: 3.1. Compressibility - Partial: Thrombus - Chronic : Flow - Reduced : Augmentation -Reduced: Reflux - None. 4. Posterior Tibial Vein: 4.1. Compressibility - : Thrombus - : Flow - : Augmentation -: Reflux - . 5. Peroneal Vein: 5.1. Compressibility - : Thrombus - : Flow - : Augmentation -: Reflux - . 6. Great Saphenous Vein: 6.1. Compressibility - Fully compressible: Thrombus - None: Flow - Phasic: Augmentation - Normal: Reflux - None. OTHER FINDINGS: DANA Wallace notified about the findings. Due to bandage on the opened wound, the left posterior tibial and peroneal vein were not visualized. 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 Left: Chronic partial thrombosis of the left common femoral, femoral and popliteal veins with severe reduction of the venous return.
--- NOTE | 2017-08-30 11:01 | VASCLAB ---
STUDY DESCRIPTION: HISTORY: non-healing wounds PRIORS: None. TECHNIQUE: Pulse volume recording waveforms and segmental pressures of bilateral lower extremities at multiple levels were obtained. Ankle Brachial Indices (ABIs) were calculated. Report prepared by SHEILA Garcia, RVT RIGHT LOWER EXTREMITY: * Brachial artery: Pressure - 124 mmHg. * High thigh: Pressure - mmHg: Ratio - : PVR waveform - Pulsatile * Low thigh: Pressure - mmHg: Ratio - PVR waveform: Pulsatile * Calf: Pressure - 165 mmHg: Ratio - 1.33 PVR waveform: Pulsatile * Posterior tibial Artery: Pressure - 170 mmHg: Ratio - 1.37 PVR waveform: Pulsatile * Dorsalis pedis Artery: Pressure - 167 mmHg: Ratio - 1.35 PVR waveform: Pulsatile * Great toe: Pressure - mmHg: Ratio - PVR waveform: Ankle brachial index (ALLISON): 1.37 LEFT LOWER EXTREMITY: * Brachial artery: Pressure - 121 mmHg. * High thigh: Pressure - mmHg: Ratio - : PVR waveform - Pulsatile * Low thigh: Pressure - mmHg: Ratio - PVR waveform: Pulsatile * Calf: Pressure - 172 mmHg: Ratio - 1.39 PVR waveform: Pulsatile * Posterior tibial Artery: Pressure - 220 mmHg: Ratio - NC PVR waveform: Pulsatile * Dorsalis pedis Artery: Pressure - 220 mmHg: Ratio - NC PVR waveform: Pulsatile * Great toe: Pressure - mmHg: Ratio - PVR waveform: Ankle brachial index (ALLISON): NC OTHER FINDINGS: Right: Left: IMPRESSION: Right: No evidence of arterial insufficiency in the right lower extremity. Left: The ankle pressure index of the left lower extremity is non-diagnostic due to possible arterial wall calcifications.
[2017-08-30] MEDS: Vancomycin 1 gm/NS 200 ml 1 GM/200 ML BAG IVPB SCH ×2 (12:02→23:27)
--- NOTE | 2017-08-30 12:39 | CP.PCM.PN ---
<Tacho Oliveira - Last Filed: 08/30/17 12:40> Subjective - Date & Time of Evaluation Date of Evaluation: 08/30/17 Time of Evaluation: 07:00 - Subjective Subjective: Patient seen and evaluated bedside. No acute issues overnight. He says pain in left leg has gotten better. Patient denies chest pain. shortness of breath or any other issues at this time. Objective - Vital Signs/Intake and Output Vital Signs (last 24 hours): Temp Pulse Resp BP Pulse Ox 97.5 F L 65 18 110/73 96 08/30/17 07:53 08/30/17 07:53 08/30/17 07:53 08/30/17 07:53 08/30/17 07:53 Intake and Output: 08/30/17 08/30/17 06:59 18:59 Intake Total 800 Balance 800 - Medications Medications: Current Medications Collagenase (Santyl) 0 gm TOP DAILY [facility] Last Admin: 08/30/17 10:33 Dose: Not Given Enoxaparin Sodium (Lovenox) 40 mg SC DAILY [facility] Last Admin: 08/30/17 10:19 Dose: 40 mg Ferrous Gluconate (Fergon) 324 mg PO TID [facility] Last Admin: 08/30/17 10:19 Dose: 324 mg Vancomycin/Sodium Chloride (Vancomycin 1 Gm/Ns 200 Ml) 1 gm in 200 mls @ 133.333 mls/hr IVPB Q12H [facility] PRN Reason: Protocol Stop: 09/03/17 12:01 Last Admin: 08/29/17 23:44 Dose: 133.333 mls/hr Ciprofloxacin (Cipro 400mg/200ml Dsw) 400 mg in 200 mls @ 133 mls/hr IVPB Q12H [facility] PRN Reason: Protocol Last Admin: 08/30/17 10:30 Dose: 133 mls/hr Ibuprofen (Motrin Tab) 600 mg PO Q12H PRN PRN Reason: Pain, Mild (1-3) Last Admin: 08/30/17 10:24 Dose: 600 mg Lisinopril (Zestril) 5 mg PO DAILY [facility] Last Admin: 08/30/17 10:19 Dose: 5 mg Pantoprazole Sodium (Protonix Ec Tab) 40 mg PO DAILY [facility] Last Admin: 08/30/17 10:19 Dose: 40 mg - Labs Labs: 08/28/17 14:44 08/28/17 14:44 - Constitutional Appears: Non-toxic, No Acute Distress - Head Exam Head Exam: ATRAUMATIC, NORMAL INSPECTION, NORMOCEPHALIC - Eye Exam Eye Exam: Normal appearance - ENT Exam ENT Exam: Mucous Membranes Moist - Respiratory Exam Respiratory Exam: Clear to Ausculation Bilateral, NORMAL BREATHING PATTERN - Cardiovascular Exam Cardiovascular Exam: REGULAR RHYTHM, +S1, +S2 - Extremities Exam Extremities Exam: Pedal Edema Additional comments: dressing on lower extremity - Neurological Exam Neurological Exam: Alert, Awake, Oriented x3 Assessment and Plan - Assessment and Plan (Free Text) Assessment: 52 year old male with a past medical history of chronic lower extremity edema, 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 Plan: 1) Bilateral non-healing ulcers - Arterial US of lower extremity: chronic partial thrombosis of the left and right common femoral, femoral anf popliteal veins and severe reduction of venous return -plan for venous angiogram with thrombectomy and IVC filter placement tomorrow - A1C: 5.4 -Cholesterol: 201 LDL: 111 HDL:38 - BNP 77.6 2) Lower extremity edema - Weight checks daily - TTE ordered <Jose Prince - Last Filed: 08/30/17 13:13> Objective - Vital Signs/Intake and Output Vital Signs (last 24 hours): Temp Pulse Resp BP Pulse Ox 97.5 F L 65 18 110/73 96 08/30/17 07:53 08/30/17 07:53 08/30/17 07:53 08/30/17 07:53 08/30/17 07:53 Intake and Output: 08/30/17 08/30/17 06:59 18:59 Intake Total 800 Balance 800 - Medications Medications: Current Medications Collagenase (Santyl) 0 gm TOP DAILY [facility] Last Admin: 08/30/17 10:33 Dose: Not Given Enoxaparin Sodium (Lovenox) 40 mg SC DAILY [facility] Last Admin: 08/30/17 10:19 Dose: 40 mg Ferrous Gluconate (Fergon) 324 mg PO TID [facility] Last Admin: 08/30/17 13:01 Dose: 324 mg Vancomycin/Sodium Chloride (Vancomycin 1 Gm/Ns 200 Ml) 1 gm in 200 mls @ 133.333 mls/hr IVPB Q12H [facility] PRN Reason: Protocol Stop: 09/03/17 12:01 Last Admin: 08/30/17 12:02 Dose: 133.333 mls/hr Ciprofloxacin (Cipro 400mg/200ml Dsw) 400 mg in 200 mls @ 133 mls/hr IVPB Q12H [facility] PRN Reason: Protocol Last Admin: 08/30/17 10:30 Dose: 133 mls/hr Ibuprofen (Motrin Tab) 600 mg PO Q12H PRN PRN Reason: Pain, Mild (1-3) Last Admin: 08/30/17 10:24 Dose: 600 mg Lisinopril (Zestril) 5 mg PO DAILY [facility] Last Admin: 08/30/17 10:19 Dose: 5 mg Pantoprazole Sodium (Protonix Ec Tab) 40 mg PO DAILY [facility] Last Admin: 08/30/17 10:19 Dose: 40 mg - Labs Labs: 08/28/17 14:44 08/28/17 14:44 Attending/Attestation - Attestation I have personally seen and examined this patient.: Yes I have fully participated in the care of the patient.: Yes I have reviewed all pertinent clinical information, including history, physical exam and plan: Yes Notes (Text): 08/30/17 13:12 IV heparin for DVT hypercoagulable w/u plan for venogram with IV filter and thrombectomy in am npo p mn
--- NOTE | 2017-08-30 13:52 | CP.PCM.PN ---
Subjective - Date & Time of Evaluation Date of Evaluation: 08/30/17 Time of Evaluation: 09:00 - Subjective Subjective: wound c/s + strep iv rx in progress may need OR debridement Objective - Vital Signs/Intake and Output Vital Signs (last 24 hours): Temp Pulse Resp BP Pulse Ox 97.5 F L 65 18 110/73 96 08/30/17 07:53 08/30/17 07:53 08/30/17 07:53 08/30/17 07:53 08/30/17 07:53 Intake and Output: 08/30/17 08/30/17 06:59 18:59 Intake Total 800 Balance 800 - Medications Medications: Current Medications Collagenase (Santyl) 0 gm TOP DAILY [facility] Last Admin: 08/30/17 10:33 Dose: Not Given Ferrous Gluconate (Fergon) 324 mg PO TID [facility] Last Admin: 08/30/17 13:01 Dose: 324 mg Vancomycin/Sodium Chloride (Vancomycin 1 Gm/Ns 200 Ml) 1 gm in 200 mls @ 133.333 mls/hr IVPB Q12H [facility] PRN Reason: Protocol Stop: 09/03/17 12:01 Last Admin: 08/30/17 12:02 Dose: 133.333 mls/hr Ciprofloxacin (Cipro 400mg/200ml Dsw) 400 mg in 200 mls @ 133 mls/hr IVPB Q12H [facility] PRN Reason: Protocol Last Admin: 08/30/17 10:30 Dose: 133 mls/hr Heparin Sodium/Sodium Chloride (Heparin 11198 Units/250ml 1/2 Normal Saline) 25 ,000 units in 250 mls @ 24.75 mls/hr IV .Q10H7M PRN; Protocol; 18 UNITS/KG/HR PRN Reason: ADJUST RATE PER PROTOCOL Ibuprofen (Motrin Tab) 600 mg PO Q12H PRN PRN Reason: Pain, Mild (1-3) Last Admin: 08/30/17 10:24 Dose: 600 mg Lisinopril (Zestril) 5 mg PO DAILY [facility] Last Admin: 08/30/17 10:19 Dose: 5 mg Pantoprazole Sodium (Protonix Ec Tab) 40 mg PO DAILY [facility] Last Admin: 08/30/17 10:19 Dose: 40 mg - Labs Labs: 08/28/17 14:44 08/28/17 14:44 - Constitutional Appears: Non-toxic, Chronically Ill - Head Exam Head Exam: NORMOCEPHALIC - Eye Exam Eye Exam: PERRL - ENT Exam ENT Exam: Mucous Membranes Dry - Neck Exam Neck Exam: absent: Lymphadenopathy - Respiratory Exam Respiratory Exam: Decreased Breath Sounds - Cardiovascular Exam Cardiovascular Exam: REGULAR RHYTHM - GI/Abdominal Exam GI & Abdominal Exam: Distended - Rectal Exam Rectal Exam: Deferred - Exam Exam: NORMAL INSPECTION Assessment and Plan (1) Diabetic ulcer of ankle Status: Acute (2) Anemia Status: Acute (3) Bilateral cellulitis of lower leg Status: Acute (4) Bilateral leg ulcer Status: Acute (5) Cellulitis Status: Acute (6) Chronic cutaneous venous stasis ulcer Status: Acute (7) Congestive heart failure due to high blood pressure Status: Acute (8) Coronary artery disease Status: Acute (9) Hypertension Status: Acute (10) Sleep apnea Status: Acute (11) Obesity Status: Chronic
--- NOTE | 2017-08-30 14:06 | CP.PCM.PN ---
Subjective - Date & Time of Evaluation Date of Evaluation: 08/30/17 Time of Evaluation: 14:03 - Subjective Subjective: DISCUSSED FINDINGS OF U/S WITH DR. HOLLAND AND DR. BANERJEE UPON ROUNDS. PER DR. HOLLAND, U/S SHOWS OCCLUSIONS OF VENOUS FLOW 2/2 CHRONIC DVTS. HE IS PLANNING PROCEDURE TOMORROW. LOVENOX D/C'D AND HEPARIN GTT STARTED. STAT LABS ORDERED WITH BASELINE PT/PTT. DR. BANERJEE REQUESTING SURGICAL CONSULT WELL; DR. LOPEZ NOTIFIED OF CONSULT BY ME. DISCUSSED THIS WITH PT'S PRIMARY RN, ARA. NO FURTHER ORDERS. Objective - Vital Signs/Intake and Output Vital Signs (last 24 hours): Temp Pulse Resp BP Pulse Ox 97.5 F L 65 18 110/73 96 08/30/17 07:53 08/30/17 07:53 08/30/17 07:53 08/30/17 07:53 08/30/17 07:53 Intake and Output: 08/30/17 08/30/17 06:59 18:59 Intake Total 800 Balance 800 - Medications Medications: Current Medications Collagenase (Santyl) 0 gm TOP DAILY [facility] Last Admin: 08/30/17 10:33 Dose: Not Given Ferrous Gluconate (Fergon) 324 mg PO TID [facility] Last Admin: 08/30/17 13:01 Dose: 324 mg Vancomycin/Sodium Chloride (Vancomycin 1 Gm/Ns 200 Ml) 1 gm in 200 mls @ 133.333 mls/hr IVPB Q12H [facility] PRN Reason: Protocol Stop: 09/03/17 12:01 Last Admin: 08/30/17 12:02 Dose: 133.333 mls/hr Ciprofloxacin (Cipro 400mg/200ml Dsw) 400 mg in 200 mls @ 133 mls/hr IVPB Q12H [facility] PRN Reason: Protocol Last Admin: 08/30/17 10:30 Dose: 133 mls/hr Heparin Sodium/Sodium Chloride (Heparin 43367 Units/250ml 1/2 Normal Saline) 25 ,000 units in 250 mls @ 24.75 mls/hr IV .Q10H7M PRN; Protocol; 18 UNITS/KG/HR PRN Reason: ADJUST RATE PER PROTOCOL Ibuprofen (Motrin Tab) 600 mg PO Q12H PRN PRN Reason: Pain, Mild (1-3) Last Admin: 08/30/17 10:24 Dose: 600 mg Lisinopril (Zestril) 5 mg PO DAILY [facility] Last Admin: 08/30/17 10:19 Dose: 5 mg Pantoprazole Sodium (Protonix Ec Tab) 40 mg PO DAILY [facility] Last Admin: 08/30/17 10:19 Dose: 40 mg - Labs Labs: 08/28/17 14:44 08/28/17 14:44
[2017-08-30 14:20] LABS: MEAN CELL VOLUME 86.7 fL (80.0-94.0); MEAN CORPUSCULAR HEMOGLOBIN 30.5 pg (27.0-31.0); MEAN CORPUSCULAR HGB CONC 35.2 g/dL (33.0-37.0); MEAN PLATELET VOLUME 7.3 fL (7.2-11.7); RBC 4.26 Mil/uL (4.40-5.90); RED CELL DISTRIBUTION WIDTH 14.4 % (11.5-14.5); WHITE BLOOD COUNT 8.3 K/uL (4.8-10.8)
[2017-08-30 14:25] LABS: INR 1.1
[2017-08-30] MEDS ORDERED: Heparin25000 units/250ml 1/2NS 25,000 UNITS/250 ML BAG IV PRN (14:30)
[2017-08-30 14:35] LABS: BLOOD UREA NITROGEN 17 mg/dL (9-20); CALCIUM 8.8 mg/dl (8.6-10.4); GFR AFRICAN-AMERICAN > 60; GFR NON-AFRICAN AMERICAN > 60
--- NOTE | 2017-08-30 17:07 | CP.PCM.CON ---
History of Present Illness - History of Present Illness History of Present Illness: Vascular Surgery Consult Note for Dr. 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 He has chronic DVT since 2009 with residual swelling for which he is not on anticoagulation. He presented due to bilateral lower extremity ulcers. He had a LE US showing bilateral thrombi. PMH: as above Allergies: Penicillin Past Surgical History: IVC filter, abdominal hernia repair Social: Denies alcohol or illict drug use; 15 pack year history of smoking in teenage years Family history: Denies Review of Systems - Review of Systems All systems: reviewed and no additional remarkable complaints except - Integumentary Integumentary: Lesions Past Patient History - Infectious Disease Hx of Infectious Diseases: None, C.diff - Tetanus Immunizations Tetanus Immunization: Up to Date - Past Medical History & Family History Past Medical History?: Yes - Past Social History Smoking Status: Former Smoker - CARDIAC Hx Cardiac Disorders: Yes Hx Hypercholesterolemia: Yes Hx Hypertension: Yes Hx Peripheral Edema: Yes - PULMONARY Hx Respiratory Disorders: Yes Hx Asthma: Yes Hx Bronchitis: Yes Hx Pneumonia: Yes Hx Respiratory Tract Infection: Yes Hx Sleep Apnea: Yes - NEUROLOGICAL Hx Neurological Disorder: No - HEENT Hx HEENT Problems: No - RENAL Hx Chronic Kidney Disease: Yes Hx Kidney Stones: Yes - ENDOCRINE/METABOLIC Hx Endocrine Disorders: No - HEMATOLOGICAL/ONCOLOGICAL Hx Blood Disorders: Yes Hx Anemia: Yes Hx Blood Transfusions: Yes - INTEGUMENTARY Hx Dermatological Problems: No Hx Cellulitis: Yes - MUSCULOSKELETAL/RHEUMATOLOGICAL Hx Musculoskeletal Disorders: No Hx Falls: No - GASTROINTESTINAL Hx Gastrointestinal Disorders: Yes Hx Gall Bladder Disease: Yes Hx Gastritis: Yes - GENITOURINARY/GYNECOLOGICAL Hx Genitourinary Disorders: No - PSYCHIATRIC Hx Psychophysiologic Disorder: No Hx Substance Use: No - SURGICAL HISTORY Hx Surgeries: Yes Hx Arthroscopy: Yes Hx Herniorrhaphy: Yes (2010) Hx Vascular Surgery: Yes Other/Comment: Vena Cava Filter on R groin for DVT L Leg in 2009. Mar 2015 R leg clot. 2009 L leg clot - ANESTHESIA Hx Anesthesia: Yes Hx Anesthesia Reactions: No Hx Malignant Hyperthermia: No Meds Allergies/Adverse Reactions: Allergies Allergy/AdvReac Type Severity Reaction Status Date / Time Penicillins Allergy Severe ANAPHYLAXIS Verified 08/28/17 13:58 - Medications Medications: Current Medications Collagenase (Santyl) 0 gm TOP DAILY [facility] Last Admin: 08/30/17 10:33 Dose: Not Given Enoxaparin Sodium (Lovenox) 40 mg SC Q12H [facility] Last Admin: 08/30/17 16:41 Dose: 40 mg Ferrous Gluconate (Fergon) 324 mg PO TID [facility] Last Admin: 08/30/17 13:01 Dose: 324 mg Vancomycin/Sodium Chloride (Vancomycin 1 Gm/Ns 200 Ml) 1 gm in 200 mls @ 133.333 mls/hr IVPB Q12H [facility] PRN Reason: Protocol Stop: 09/03/17 12:01 Last Admin: 08/30/17 12:02 Dose: 133.333 mls/hr Ciprofloxacin (Cipro 400mg/200ml Dsw) 400 mg in 200 mls @ 133 mls/hr IVPB Q12H [facility] PRN Reason: Protocol Last Admin: 08/30/17 10:30 Dose: 133 mls/hr Ibuprofen (Motrin Tab) 600 mg PO Q12H PRN PRN Reason: Pain, Mild (1-3) Last Admin: 08/30/17 10:24 Dose: 600 mg Lisinopril (Zestril) 5 mg PO DAILY [facility] Last Admin: 08/30/17 10:19 Dose: 5 mg Pantoprazole Sodium (Protonix Ec Tab) 40 mg PO DAILY [facility] Last Admin: 08/30/17 10:19 Dose: 40 mg Physical Exam - Constitutional Appears: Non-toxic, No Acute Distress - Head Exam Head Exam: ATRAUMATIC, NORMOCEPHALIC - Eye Exam Eye Exam: EOMI, Normal appearance - ENT Exam ENT Exam: Mucous Membranes Moist - Respiratory Exam Respiratory Exam: NORMAL BREATHING PATTERN - Cardiovascular Exam Cardiovascular Exam: +S1, +S2 - GI/Abdominal Exam GI & Abdominal Exam: Soft. absent: Rigid, Tenderness - Extremities Exam Additional comments: Bilateral lower extremity swelling. Palpable distal pulses Results - Vital Signs Recent Vital Signs: Last Vital Signs Temp 98.0 F 08/30/17 15:00 Pulse 77 08/30/17 15:00 Resp 18 08/30/17 15:00 BP 106/61 08/30/17 15:00 Pulse Ox 95 08/30/17 15:00 - Labs Result Diagrams: 08/30/17 14:15 08/30/17 14:15 Labs: Laboratory Results - last 24 hr 08/30/17 08/30/17 08/30/17 14:15 14:15 14:15 WBC 8.3 RBC 4.26 L Hgb 13.0 Hct 37.0 MCV 86.7 MCH 30.5 MCHC 35.2 RDW 14.4 Plt Count 358 MPV 7.3 PT 12.0 INR 1.1 Sodium 143 Potassium 4.0 Chloride 105 Carbon Dioxide 26 Anion Gap 16 BUN 17 Creatinine 1.2 Est GFR ( Amer) > 60 Est GFR (Non-Af Amer) > 60 Random Glucose 102 Calcium 8.8 Assessment & Plan - Assessment and Plan (Free Text) Assessment: 52M with bilatral chronic DVTs CT venogram if extension to the iliacs might consider intervention D/W Dr. Joe Merida PGY2
--- NOTE | 2017-08-30 23:53 | CP.PCM.CON ---
History of Present Illness - History of Present Illness History of Present Illness: Patient is known to me since 2016 when he was hospitalized for pedal edema, DVT and an Echocardiogram at that time revealed a normal LV systolic function, and mild pulmonary hypertension. Now he is hospitalized for infected ulcers of the feet, and bilateral leg edema. A venous scan shows chronic thrombi of the right and left common femoral veins. He denies any SOB, chest pain. A CXR discloses cardiomegaly. He is known to have a HPTN, an obesity, recurrent DVT of the lower extremities, s/p IVC insertion in 2009. He quit cigarette smoking 20 years ago, and denies any alcohol abuse. A repeated echocardiogram was ordered. Review of Systems - Review of Systems All systems: reviewed and no additional remarkable complaints except - Cardiovascular Cardiovascular: Edema - Musculoskeletal Additional comments: Edeama of the lower extremities. - Integumentary Integumentary: Skin Ulcer Additional comments: Infected ulcers of both feet. Past Patient History - Infectious Disease Hx of Infectious Diseases: None, C.diff - Tetanus Immunizations Tetanus Immunization: Up to Date - Past Medical History & Family History Past Medical History?: Yes - Past Social History Smoking Status: Former Smoker Alcohol: None Drugs: Denies Domestic Violence: Negative - CARDIAC Hx Cardiac Disorders: Yes Hx Hypercholesterolemia: Yes Hx Hypertension: Yes Hx Peripheral Edema: Yes - PULMONARY Hx Respiratory Disorders: Yes Hx Asthma: Yes Hx Bronchitis: Yes Hx Pneumonia: Yes Hx Respiratory Tract Infection: Yes Hx Sleep Apnea: Yes - NEUROLOGICAL Hx Neurological Disorder: No - HEENT Hx HEENT Problems: No - RENAL Hx Chronic Kidney Disease: Yes Hx Kidney Stones: Yes - ENDOCRINE/METABOLIC Hx Endocrine Disorders: No - HEMATOLOGICAL/ONCOLOGICAL Hx Blood Disorders: Yes Hx Anemia: Yes Hx Blood Transfusions: Yes - INTEGUMENTARY Hx Dermatological Problems: No Hx Cellulitis: Yes - MUSCULOSKELETAL/RHEUMATOLOGICAL Hx Musculoskeletal Disorders: No Hx Falls: No - GASTROINTESTINAL Hx Gastrointestinal Disorders: Yes Hx Gall Bladder Disease: Yes Hx Gastritis: Yes - GENITOURINARY/GYNECOLOGICAL Hx Genitourinary Disorders: No - PSYCHIATRIC Hx Psychophysiologic Disorder: No Hx Substance Use: No - SURGICAL HISTORY Hx Surgeries: Yes Hx Arthroscopy: Yes Hx Herniorrhaphy: Yes (2010) Hx Vascular Surgery: Yes Other/Comment: Vena Cava Filter on R groin for DVT L Leg in 2009. Mar 2015 R leg clot. 2008 L leg clot - ANESTHESIA Hx Anesthesia: Yes Hx Anesthesia Reactions: No Hx Malignant Hyperthermia: No Meds Allergies/Adverse Reactions: Allergies Allergy/AdvReac Type Severity Reaction Status Date / Time Penicillins Allergy Severe ANAPHYLAXIS Verified 08/28/17 13:58 - Medications Medications: Current Medications Collagenase (Santyl) 0 gm TOP DAILY [facility] Last Admin: 08/30/17 10:33 Dose: Not Given Enoxaparin Sodium (Lovenox) 40 mg SC Q12H [facility] Last Admin: 08/30/17 16:41 Dose: 40 mg Ferrous Gluconate (Fergon) 324 mg PO TID [facility] Last Admin: 08/30/17 18:19 Dose: 324 mg Vancomycin/Sodium Chloride (Vancomycin 1 Gm/Ns 200 Ml) 1 gm in 200 mls @ 133.333 mls/hr IVPB Q12H [facility] PRN Reason: Protocol Stop: 09/03/17 12:01 Last Admin: 08/30/17 23:27 Dose: 133.333 mls/hr Ciprofloxacin (Cipro 400mg/200ml Dsw) 400 mg in 200 mls @ 133 mls/hr IVPB Q12H [facility] PRN Reason: Protocol Last Admin: 08/30/17 22:40 Dose: 133 mls/hr Ibuprofen (Motrin Tab) 600 mg PO Q12H PRN PRN Reason: Pain, Mild (1-3) Last Admin: 08/30/17 10:24 Dose: 600 mg Lisinopril (Zestril) 5 mg PO DAILY [facility] Last Admin: 08/30/17 10:19 Dose: 5 mg Pantoprazole Sodium (Protonix Ec Tab) 40 mg PO DAILY [facility] Last Admin: 08/30/17 10:19 Dose: 40 mg Physical Exam - Constitutional Appears: Chronically Ill - Head Exam Head Exam: NORMOCEPHALIC - Eye Exam Eye Exam: Normal appearance - ENT Exam ENT Exam: Normal Exam - Neck Exam Neck exam: Positive for: Normal Inspection - Respiratory Exam Respiratory Exam: Clear to Auscultation Bilateral, NORMAL BREATHING PATTERN - Cardiovascular Exam Cardiovascular Exam: REGULAR RHYTHM - GI/Abdominal Exam GI & Abdominal Exam: Normal Bowel Sounds, Soft - Rectal Exam Rectal Exam: Deferred - Extremities Exam Extremities exam: Positive for: pedal edema Additional comments: Infected ulcers of both feet. - Back Exam Back exam: NORMAL INSPECTION - Neurological Exam Neurological exam: Alert, Oriented x3 - Psychiatric Exam Psychiatric exam: Anxious - Skin Additional comments: Infected ulcers of both feet. Results - Vital Signs Recent Vital Signs: Last Vital Signs Temp 98.2 F 08/30/17 23:41 Pulse 77 08/30/17 23:41 Resp 20 08/30/17 23:41 BP 101/66 08/30/17 23:41 Pulse Ox 95 08/30/17 23:41 - Labs Result Diagrams: 08/30/17 14:15 08/30/17 14:15 Labs: Laboratory Results - last 24 hr 08/30/17 08/30/17 08/30/17 14:15 14:15 14:15 WBC 8.3 RBC 4.26 L Hgb 13.0 Hct 37.0 MCV 86.7 MCH 30.5 MCHC 35.2 RDW 14.4 Plt Count 358 MPV 7.3 PT 12.0 INR 1.1 D-Dimer, Quantitative Sodium 143 Potassium 4.0 Chloride 105 Carbon Dioxide 26 Anion Gap 16 BUN 17 Creatinine 1.2 Est GFR ( Amer) > 60 Est GFR (Non-Af Amer) > 60 Random Glucose 102 Calcium 8.8 08/30/17 17:30 WBC RBC Hgb Hct MCV MCH MCHC RDW Plt Count MPV PT INR D-Dimer, Quantitative 2702 H Sodium Potassium Chloride Carbon Dioxide Anion Gap BUN Creatinine Est GFR ( Amer) Est GFR (Non-Af Amer) Random Glucose Calcium Assessment & Plan (1) Cellulitis of both feet Assessment and Plan: IV antibiotics as per Dr. Yang. Status: Acute (2) Chronic deep vein thrombosis of femoral vein Assessment and Plan: Patient should be on anticoagulant if there is no contraindications. Status: Chronic
[2017-08-31] MEDS: Enoxaparin 40 mg Syringe SC SCH ×2 (04:24→18:00)
[2017-08-31 08:17] LABS: HEMOGLOBIN 12.3 g/dL (12.0-18.0); MEAN CELL VOLUME 86.2 fL (80.0-94.0); MEAN CORPUSCULAR HEMOGLOBIN 30.6 pg (27.0-31.0); MEAN CORPUSCULAR HGB CONC 35.5 g/dL (33.0-37.0); MEAN PLATELET VOLUME 7.3 fL (7.2-11.7); RBC 4.02 Mil/uL (4.40-5.90); RED CELL DISTRIBUTION WIDTH 14.5 % (11.5-14.5); WHITE BLOOD COUNT 7.4 K/uL (4.8-10.8)
[2017-08-31 08:31] LABS: BLOOD UREA NITROGEN 17 mg/dL (9-20); CALCIUM 8.8 mg/dl (8.6-10.4); GFR AFRICAN-AMERICAN > 60; GFR NON-AFRICAN AMERICAN > 60
[2017-08-31] MEDS: Pantoprazole 40 mg EC Tab PO SCH (09:24)
[2017-08-31] MEDS: Collagenase 250 Units/gm Ointment(30 gm) TOP SCH (09:25)
--- NOTE | 2017-08-31 11:23 | CP.PCM.PN ---
<Karlee Chaudhari - Last Filed: 08/31/17 14:24> Subjective - Date & Time of Evaluation Date of Evaluation: 08/31/17 Time of Evaluation: 11:23 - Subjective Subjective: Cardiology Progress Note Patient seen and examined at bedside. Patient reports that he has been in discussions with his PMD, Dr. Brown, Dr. Godinez, and Dr. Baer. Patient denies any out proportional pain in his lower extremities. Objective - Vital Signs/Intake and Output Vital Signs (last 24 hours): Temp Pulse Resp BP Pulse Ox 98.1 F 73 20 116/70 95 08/31/17 08:00 08/31/17 08:00 08/31/17 08:00 08/31/17 08:00 08/31/17 08:00 Intake and Output: 08/31/17 08/31/17 06:59 18:59 Output Total 900 Balance -900 - Medications Medications: Current Medications Collagenase (Santyl) 0 gm TOP DAILY [facility] Last Admin: 08/31/17 09:25 Dose: 1 applic Enoxaparin Sodium (Lovenox) 40 mg SC Q12H [facility] Last Admin: 08/31/17 04:24 Dose: Not Given Ferrous Gluconate (Fergon) 324 mg PO TID [facility] Last Admin: 08/31/17 09:24 Dose: 324 mg Vancomycin/Sodium Chloride (Vancomycin 1 Gm/Ns 200 Ml) 1 gm in 200 mls @ 133.333 mls/hr IVPB Q12H [facility] PRN Reason: Protocol Stop: 09/03/17 12:01 Last Admin: 08/30/17 23:27 Dose: 133.333 mls/hr Ciprofloxacin (Cipro 400mg/200ml Dsw) 400 mg in 200 mls @ 133 mls/hr IVPB Q12H [facility] PRN Reason: Protocol Last Admin: 08/30/17 22:40 Dose: 133 mls/hr Ibuprofen (Motrin Tab) 600 mg PO Q12H PRN PRN Reason: Pain, Mild (1-3) Last Admin: 08/31/17 09:28 Dose: 600 mg Lisinopril (Zestril) 5 mg PO DAILY [facility] Last Admin: 08/31/17 09:24 Dose: 5 mg Pantoprazole Sodium (Protonix Ec Tab) 40 mg PO DAILY [facility] Last Admin: 08/31/17 09:24 Dose: 40 mg - Labs Labs: 08/31/17 08:12 08/31/17 08:12 PT 12.0 SECONDS (9.7-12.2) 08/30/17 14:15 INR 1.1 08/30/17 14:15 Assessment and Plan - Assessment and Plan (Free Text) Assessment: 52 year old male with a past medical history of chronic lower extremity edema, 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 Plan: 1) Bilateral non-healing ulcers - Arterial US of lower extremity: chronic partial thrombosis of the left and right common femoral, femoral anf popliteal veins and severe reduction of venous return - A1C: 5.4 -Cholesterol: 201 LDL: 111 HDL:38 - BNP 77.6 2) Lower extremity edema - Weight checks daily - TTE ordered, arminda monroy Disposition: Continue with current medical therapy <Jose Prince - Last Filed: 09/01/17 23:03> Objective - Vital Signs/Intake and Output Vital Signs (last 24 hours): Temp Pulse Resp BP Pulse Ox 97.6 F 96 H 20 107/61 96 09/01/17 15:00 09/01/17 15:00 09/01/17 15:00 09/01/17 15:00 09/01/17 15:00 Intake and Output: 09/01/17 09/02/17 18:59 06:59 Intake Total 900 800 Output Total 600 Balance 900 200 - Medications Medications: Current Medications Collagenase (Santyl) 0 gm TOP DAILY [facility] Last Admin: 09/01/17 10:00 Dose: 1 applic Enoxaparin Sodium (Lovenox) 40 mg SC Q12H [facility] Last Admin: 09/01/17 16:23 Dose: 40 mg Ferrous Gluconate (Fergon) 324 mg PO TID [facility] Last Admin: 09/01/17 17:08 Dose: 324 mg Vancomycin/Sodium Chloride (Vancomycin 1 Gm/Ns 200 Ml) 1 gm in 200 mls @ 133.333 mls/hr IVPB Q12H [facility] PRN Reason: Protocol Stop: 09/03/17 12:01 Last Admin: 09/01/17 11:24 Dose: 133.333 mls/hr Ciprofloxacin (Cipro 400mg/200ml Dsw) 400 mg in 200 mls @ 133 mls/hr IVPB Q12H [facility] PRN Reason: Protocol Last Admin: 09/01/17 22:30 Dose: 133 mls/hr Ibuprofen (Motrin Tab) 600 mg PO Q12H PRN PRN Reason: Pain, Mild (1-3) Last Admin: 09/01/17 09:57 Dose: 600 mg Lisinopril (Zestril) 5 mg PO DAILY [facility] Last Admin: 09/01/17 09:54 Dose: 5 mg Pantoprazole Sodium (Protonix Ec Tab) 40 mg PO DAILY [facility] Last Admin: 09/01/17 09:54 Dose: 40 mg - Labs Labs: 09/01/17 08:07 09/01/17 08:07 PT 12.0 SECONDS (9.7-12.2) 08/30/17 14:15 INR 1.1 08/30/17 14:15 Attending/Attestation - Attestation I have personally seen and examined this patient.: Yes I have fully participated in the care of the patient.: Yes I have reviewed all pertinent clinical information, including history, physical exam and plan: Yes Notes (Text): 09/01/17 23:03 CT Venogram ordered cont therapeutic lovenox further titration based on results of venogram
[2017-08-31] MEDS: Ciprofloxacin 400mg/200ml D5W 400 MG/200 ML BAG IVPB SCH ×2 (11:28→22:46)
[2017-08-31] MEDS: Vancomycin 1 gm/NS 200 ml 1 GM/200 ML BAG IVPB SCH (11:29)
--- NOTE | 2017-08-31 11:31 | CP.PCM.PN ---
Subjective - Date & Time of Evaluation Date of Evaluation: 08/31/17 Time of Evaluation: 11:31 - Subjective Subjective: Podiatry Progress note for Dr. Peres 52 year old male was seen at bedside for chronic non-healing wounds. He states that the pain in his left leg is better. Patient is for venogram today. Seen resting comfortably at bedside. He currently denies any n/v/f/c/sob/cp. Objective - Vital Signs/Intake and Output Vital Signs (last 24 hours): Temp Pulse Resp BP Pulse Ox 98.1 F 73 20 116/70 95 08/31/17 08:00 08/31/17 08:00 08/31/17 08:00 08/31/17 08:00 08/31/17 08:00 Intake and Output: 08/31/17 08/31/17 06:59 18:59 Output Total 900 Balance -900 - Medications Medications: Current Medications Collagenase (Santyl) 0 gm TOP DAILY [facility] Last Admin: 08/31/17 09:25 Dose: 1 applic Enoxaparin Sodium (Lovenox) 40 mg SC Q12H [facility] Last Admin: 08/31/17 04:24 Dose: Not Given Ferrous Gluconate (Fergon) 324 mg PO TID [facility] Last Admin: 08/31/17 09:24 Dose: 324 mg Vancomycin/Sodium Chloride (Vancomycin 1 Gm/Ns 200 Ml) 1 gm in 200 mls @ 133.333 mls/hr IVPB Q12H [facility] PRN Reason: Protocol Stop: 09/03/17 12:01 Last Admin: 08/31/17 11:29 Dose: 133.333 mls/hr Ciprofloxacin (Cipro 400mg/200ml Dsw) 400 mg in 200 mls @ 133 mls/hr IVPB Q12H [facility] PRN Reason: Protocol Last Admin: 08/31/17 11:28 Dose: 133 mls/hr Ibuprofen (Motrin Tab) 600 mg PO Q12H PRN PRN Reason: Pain, Mild (1-3) Last Admin: 08/31/17 09:28 Dose: 600 mg Lisinopril (Zestril) 5 mg PO DAILY [facility] Last Admin: 08/31/17 09:24 Dose: 5 mg Pantoprazole Sodium (Protonix Ec Tab) 40 mg PO DAILY [facility] Last Admin: 08/31/17 09:24 Dose: 40 mg - Labs Labs: 08/31/17 08:12 08/31/17 08:12 PT 12.0 SECONDS (9.7-12.2) 08/30/17 14:15 INR 1.1 08/30/17 14:15 - Constitutional Appears: Well, Non-toxic, No Acute Distress - Extremities Exam Additional comments: Lower extremity focused exam: Vasc: DP and PT pulses faintly palpable b/l. CFT > 3 seconds to all digits b/l. Skin temperature warm to warm from proximal to distal Neuro: Gross sensation diminished b/l Ortho: Tenderness on palpation to leg wounds b/l Derm: Open ulceration noted to the anterior aspect of the left leg measure approximately 10 cm by 6 cm by 0.3 cm with a fibrogranular base, with mild amount of purulence noted, moderate malodor noted. Open ulceration noted to the anterior aspect of right leg measuring approximately 2 cm by 2 cm with fibrogranular base, no malodor noted. Periwound is macerated. Erythema noted around wound sites. - Neurological Exam Neurological Exam: Alert, Awake, Oriented x3 - Psychiatric Exam Psychiatric exam: Normal Affect, Normal Mood Assessment and Plan - Assessment and Plan (Free Text) Assessment: 52 year old male with bilateral chronic non-healing wounds Plan: patient examined and evaluated discussed in detail with attending, Dr. Peres labs, chart, vitals reviewed;afebrile, WBC 7.4 IV abx per ID L ankle pressure index of the LLE is non-diagnosit due to possible arterial wall calcifications LE venous duplex exam:chronic partial thrombosis of the right and left common femoral, femoral and poplietal veins with severe reduction of venous return wound culture- streph viridans wounds cleansed with saline,dressed with telfa, [facility] podiatry will cont to follow patient while in house
--- NOTE | 2017-08-31 19:15 | CP.PCM.PN ---
Subjective - Date & Time of Evaluation Date of Evaluation: 08/31/17 Time of Evaluation: 10:00 - Subjective Subjective: events noted iv rx renewed Objective - Vital Signs/Intake and Output Vital Signs (last 24 hours): Temp Pulse Resp BP Pulse Ox 98.2 F 79 20 103/59 L 95 08/31/17 15:25 08/31/17 15:25 08/31/17 15:25 08/31/17 15:25 08/31/17 15:25 Intake and Output: 08/31/17 09/01/17 18:59 06:59 Intake Total 800 Balance 800 - Medications Medications: Current Medications Collagenase (Santyl) 0 gm TOP DAILY [facility] Last Admin: 08/31/17 09:25 Dose: 1 applic Enoxaparin Sodium (Lovenox) 40 mg SC Q12H [facility] Last Admin: 08/31/17 04:24 Dose: Not Given Ferrous Gluconate (Fergon) 324 mg PO TID [facility] Last Admin: 08/31/17 13:52 Dose: 324 mg Vancomycin/Sodium Chloride (Vancomycin 1 Gm/Ns 200 Ml) 1 gm in 200 mls @ 133.333 mls/hr IVPB Q12H [facility] PRN Reason: Protocol Stop: 09/03/17 12:01 Last Admin: 08/31/17 11:29 Dose: 133.333 mls/hr Ciprofloxacin (Cipro 400mg/200ml Dsw) 400 mg in 200 mls @ 133 mls/hr IVPB Q12H [facility] PRN Reason: Protocol Last Admin: 08/31/17 11:28 Dose: 133 mls/hr Ibuprofen (Motrin Tab) 600 mg PO Q12H [facility] PRN Reason: Pain, Mild (1-3) Last Admin: 08/31/17 09:28 Dose: 600 mg Lisinopril (Zestril) 5 mg PO DAILY [facility] Last Admin: 08/31/17 09:24 Dose: 5 mg Pantoprazole Sodium (Protonix Ec Tab) 40 mg PO DAILY [facility] Last Admin: 08/31/17 09:24 Dose: 40 mg - Labs Labs: 08/31/17 08:12 08/31/17 08:12 PT 12.0 SECONDS (9.7-12.2) 08/30/17 14:15 INR 1.1 08/30/17 14:15 - Constitutional Appears: Non-toxic, Chronically Ill - Head Exam Head Exam: NORMOCEPHALIC - Eye Exam Eye Exam: PERRL - ENT Exam ENT Exam: Mucous Membranes Dry - Neck Exam Neck Exam: absent: Lymphadenopathy - Respiratory Exam Respiratory Exam: Decreased Breath Sounds - Cardiovascular Exam Cardiovascular Exam: REGULAR RHYTHM - GI/Abdominal Exam GI & Abdominal Exam: Distended, Soft Assessment and Plan (1) Diabetic ulcer of ankle Status: Acute (2) Anemia Status: Acute (3) Bilateral cellulitis of lower leg Status: Acute (4) Bilateral leg ulcer Status: Deleted (5) Cellulitis Status: Acute (6) Chronic cutaneous venous stasis ulcer Status: Acute (7) Congestive heart failure due to high blood pressure Status: Acute (8) Coronary artery disease Status: Acute (9) Hypertension Status: Acute (10) Sleep apnea Status: Acute (11) Obesity Status: Chronic
--- NOTE | 2017-08-31 22:05 | CP.PCM.PN ---
Subjective - Date & Time of Evaluation Date of Evaluation: 08/31/17 Time of Evaluation: 13:20 - Subjective Subjective: Patient claim to have less left leg pain. Patient evaluated by Dr Diaz and Dr Baer who suggest conservative treatment at this time. Objective - Vital Signs/Intake and Output Vital Signs (last 24 hours): Temp Pulse Resp BP Pulse Ox 98.2 F 79 20 103/59 L 95 08/31/17 15:25 08/31/17 15:25 08/31/17 15:25 08/31/17 15:25 08/31/17 15:25 Intake and Output: 08/31/17 09/01/17 18:59 06:59 Intake Total 800 Balance 800 - Medications Medications: Current Medications Collagenase (Santyl) 0 gm TOP DAILY [facility] Last Admin: 08/31/17 09:25 Dose: 1 applic Enoxaparin Sodium (Lovenox) 40 mg SC Q12H [facility] Last Admin: 08/31/17 04:24 Dose: Not Given Ferrous Gluconate (Fergon) 324 mg PO TID [facility] Last Admin: 08/31/17 13:52 Dose: 324 mg Vancomycin/Sodium Chloride (Vancomycin 1 Gm/Ns 200 Ml) 1 gm in 200 mls @ 133.333 mls/hr IVPB Q12H [facility] PRN Reason: Protocol Stop: 09/03/17 12:01 Last Admin: 08/31/17 11:29 Dose: 133.333 mls/hr Ciprofloxacin (Cipro 400mg/200ml Dsw) 400 mg in 200 mls @ 133 mls/hr IVPB Q12H [facility] PRN Reason: Protocol Last Admin: 08/31/17 11:28 Dose: 133 mls/hr Ibuprofen (Motrin Tab) 600 mg PO Q12H PRN PRN Reason: Pain, Mild (1-3) Last Admin: 08/31/17 09:28 Dose: 600 mg Lisinopril (Zestril) 5 mg PO DAILY [facility] Last Admin: 08/31/17 09:24 Dose: 5 mg Pantoprazole Sodium (Protonix Ec Tab) 40 mg PO DAILY [facility] Last Admin: 08/31/17 09:24 Dose: 40 mg - Labs Labs: 08/31/17 08:12 08/31/17 08:12 PT 12.0 SECONDS (9.7-12.2) 08/30/17 14:15 INR 1.1 08/30/17 14:15 - Constitutional Appears: No Acute Distress - Head Exam Head Exam: NORMOCEPHALIC - Eye Exam Eye Exam: Normal appearance - ENT Exam ENT Exam: Normal External Ear Exam - Neck Exam Neck Exam: Normal Inspection - Respiratory Exam Respiratory Exam: Decreased Breath Sounds - Cardiovascular Exam Cardiovascular Exam: REGULAR RHYTHM - Rectal Exam Rectal Exam: Deferred - Exam Exam: NORMAL INSPECTION - Extremities Exam Extremities Exam: Pedal Edema - Back Exam Back Exam: NORMAL INSPECTION - Neurological Exam Neurological Exam: Oriented x3 - Psychiatric Exam Psychiatric exam: Depressed - Skin Skin Exam: Dry Assessment and Plan (1) Bilateral leg ulcer Status: Deleted (2) Degenerative joint disease Status: Acute (3) Hypertension Status: Acute (4) Obesity Status: Chronic
[2017-09-01] MEDS: Vancomycin 1 gm/NS 200 ml 1 GM/200 ML BAG IVPB SCH ×3 (00:01→23:41)
[2017-09-01] MEDS: Enoxaparin 40 mg Syringe SC SCH ×2 (04:49→16:23)
[2017-09-01 08:16] LABS: BASO # 0.1 K/uL (0.0-0.2); EOS # 0.2 K/uL (0.0-0.7); EOS % 2.2 % (0.0-4.0); HEMOGLOBIN 12.2 g/dL (12.0-18.0); MEAN CORPUSCULAR HEMOGLOBIN 30.6 pg (27.0-31.0); MEAN CORPUSCULAR HGB CONC 35.5 g/dL (33.0-37.0); MEAN PLATELET VOLUME 7.3 fL (7.2-11.7); MONO # 0.8 K/uL (0.0-0.8); MONO % 9.7 % (0.0-10.0); NEUT # 5.7 K/uL (1.8-7.0); NEUT % 74.1 % (50.0-75.0); NRBC % 0.2 % (0.0-2.0); RED CELL DISTRIBUTION WIDTH 14.4 % (11.5-14.5); WHITE BLOOD COUNT 7.7 K/uL (4.8-10.8)
[2017-09-01 08:45] LABS: ALB/GLOB RATIO 0.9 (1.0-2.1); ALBUMIN 3.4 g/dL (3.5-5.0); ALT/SGPT < 6 U/L (21-72); AST/SGOT 14 U/L (17-59); BLOOD UREA NITROGEN 16 mg/dL (9-20); CALCIUM 8.5 mg/dl (8.6-10.4); GFR AFRICAN-AMERICAN > 60; GFR NON-AFRICAN AMERICAN > 60
[2017-09-01] MEDS: Pantoprazole 40 mg EC Tab PO SCH (09:54)
[2017-09-01] MEDS: Collagenase 250 Units/gm Ointment(30 gm) TOP SCH (10:00)
[2017-09-01] MEDS: Ciprofloxacin 400mg/200ml D5W 400 MG/200 ML BAG IVPB SCH ×2 (11:24→22:30)
[2017-09-01] MEDS ORDERED: Iodixanol 320 mg/ml 150 ml Bottle IV ONE (11:48)
--- NOTE | 2017-09-01 13:38 | CP.PCM.PN ---
<Karlee Chaudhari - Last Filed: 09/01/17 18:23> Subjective - Date & Time of Evaluation Date of Evaluation: 09/01/17 Time of Evaluation: 13:38 - Subjective Subjective: Cardiology Progress Note Patient seen and examined at bedside. Patient denies any lower extremity pain, fever, or chills. Patient voices understanding of the treatment options going forward. Nurse reports no events overnight. Objective - Vital Signs/Intake and Output Vital Signs (last 24 hours): Temp Pulse Resp BP Pulse Ox 98.6 F 79 20 102/68 95 09/01/17 08:05 09/01/17 08:05 09/01/17 08:05 09/01/17 08:05 09/01/17 08:05 Intake and Output: 09/01/17 09/01/17 06:59 18:59 Output Total 1400 Balance -1400 - Medications Medications: Current Medications Collagenase (Santyl) 0 gm TOP DAILY [facility] Last Admin: 09/01/17 10:00 Dose: 1 applic Enoxaparin Sodium (Lovenox) 40 mg SC Q12H [facility] Last Admin: 09/01/17 04:49 Dose: 40 mg Ferrous Gluconate (Fergon) 324 mg PO TID [facility] Last Admin: 09/01/17 09:54 Dose: 324 mg Vancomycin/Sodium Chloride (Vancomycin 1 Gm/Ns 200 Ml) 1 gm in 200 mls @ 133.333 mls/hr IVPB Q12H [facility] PRN Reason: Protocol Stop: 09/03/17 12:01 Last Admin: 09/01/17 11:24 Dose: 133.333 mls/hr Ciprofloxacin (Cipro 400mg/200ml Dsw) 400 mg in 200 mls @ 133 mls/hr IVPB Q12H [facility] PRN Reason: Protocol Last Admin: 09/01/17 11:24 Dose: 133 mls/hr Ibuprofen (Motrin Tab) 600 mg PO Q12H PRN PRN Reason: Pain, Mild (1-3) Last Admin: 09/01/17 09:57 Dose: 600 mg Lisinopril (Zestril) 5 mg PO DAILY [facility] Last Admin: 09/01/17 09:54 Dose: 5 mg Pantoprazole Sodium (Protonix Ec Tab) 40 mg PO DAILY [facility] Last Admin: 09/01/17 09:54 Dose: 40 mg - Labs Labs: 09/01/17 08:07 09/01/17 08:07 PT 12.0 SECONDS (9.7-12.2) 08/30/17 14:15 INR 1.1 08/30/17 14:15 - Constitutional Appears: Well, Non-toxic - Head Exam Head Exam: ATRAUMATIC, NORMOCEPHALIC - Eye Exam Eye Exam: EOMI, Normal appearance - ENT Exam ENT Exam: Mucous Membranes Moist - Neck Exam Neck Exam: Normal Inspection - Respiratory Exam Respiratory Exam: Clear to Ausculation Bilateral, NORMAL BREATHING PATTERN. 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 Patient is agreeable to EKOS thrombolysis with localized tPA adminstration. Plan: 1) Bilateral non-healing ulcers likely secondary to chronic partial thrombosis of the lower extremity venous circulation - Suboptimal opacification of the infrarenal IVC, pelvic and lower extremity veins markedly limiting evaluation. Numerous hypertrophy pelvic venous collaterals as well as superficial bilateral lower extremity in abdominal wall varicosities likely related to known chronic thrombosis of the bilateral lower extremity veins. Bilateral testicular varicoceles. - A1C: 5.4 -Cholesterol: 201 LDL: 111 HDL:38 - BNP 77.6 - D-dimer elevated at 2, 702 - EKOS thrombolysis with localized tPa administration tentatively planned for Monday. 2) Lower extremity edema - Weight checks daily - TTE pending Case reviewed and discussed with Dr. Prince <Jose Prince - Last Filed: 09/01/17 23:06> Objective - Vital Signs/Intake and Output Vital Signs (last 24 hours): Temp Pulse Resp BP Pulse Ox 97.6 F 96 H 20 107/61 96 09/01/17 15:00 09/01/17 15:00 09/01/17 15:00 09/01/17 15:00 09/01/17 15:00 Intake and Output: 09/01/17 09/02/17 18:59 06:59 Intake Total 900 800 Output Total 600 Balance 900 200 - Medications Medications: Current Medications Collagenase (Santyl) 0 gm TOP DAILY [facility] Last Admin: 09/01/17 10:00 Dose: 1 applic Enoxaparin Sodium (Lovenox) 40 mg SC Q12H [facility] Last Admin: 09/01/17 16:23 Dose: 40 mg Ferrous Gluconate (Fergon) 324 mg PO TID [facility] Last Admin: 09/01/17 17:08 Dose: 324 mg Vancomycin/Sodium Chloride (Vancomycin 1 Gm/Ns 200 Ml) 1 gm in 200 mls @ 133.333 mls/hr IVPB Q12H [facility] PRN Reason: Protocol Stop: 09/03/17 12:01 Last Admin: 09/01/17 11:24 Dose: 133.333 mls/hr Ciprofloxacin (Cipro 400mg/200ml Dsw) 400 mg in 200 mls @ 133 mls/hr IVPB Q12H [facility] PRN Reason: Protocol Last Admin: 09/01/17 22:30 Dose: 133 mls/hr Ibuprofen (Motrin Tab) 600 mg PO Q12H PRN PRN Reason: Pain, Mild (1-3) Last Admin: 09/01/17 09:57 Dose: 600 mg Lisinopril (Zestril) 5 mg PO DAILY [facility] Last Admin: 09/01/17 09:54 Dose: 5 mg Pantoprazole Sodium (Protonix Ec Tab) 40 mg PO DAILY [facility] Last Admin: 09/01/17 09:54 Dose: 40 mg - Labs Labs: 09/01/17 08:07 09/01/17 08:07 PT 12.0 SECONDS (9.7-12.2) 08/30/17 14:15 INR 1.1 08/30/17 14:15 Attending/Attestation - Attestation I have personally seen and examined this patient.: Yes I have fully participated in the care of the patient.: Yes I have reviewed all pertinent clinical information, including history, physical exam and plan: Yes Notes (Text): 09/01/17 23:04 IVC filter thrombosed with severe venous obstruction plan for Venogram with possible thrombolysis +/- stent as planned on Monday discussed with patient in detail about risk of bleeding with Catheter directed thrombolysis plan for procedure on Monday after discussing with and
--- NOTE | 2017-09-01 14:33 | CT ---
PROCEDURE: CT Venography Abdomen, Pelvis and Lower Extremity with Contrast HISTORY: ulcers LE > 1 year , bilateral DVT COMPARISON: None. TECHNIQUE: Technique: CT venography of the abdomen, pelvis and bilateral lower extremities performed in the arterial phase of enhancement. Coronal and sagittal reformats, and well as rotating MIP images of the vessels generated at the workstation. Intravenous contrast dose: 150 mL Visipaque 320 Radiation dose: Total exam DLP = 4088.5 mGy-cm. This CT exam was performed using one or more of the following dose reduction techniques: Automated exposure control, adjustment of the mA and/or kV according to patient size, and/or use of iterative reconstruction technique. FINDINGS: VENOGRAM: Suboptimal opacification of the infrarenal IVC, pelvic and lower extremity veins markedly limiting evaluation. Collapse of the infrarenal IVC, within an inferior to the indwelling IVC filter may be related to chronic thrombosis. Numerous hypertrophied pelvic venous collaterals as well as superficial bilateral lower extremity and abdominal wall varicosities. LIVER: Unremarkable. No gross lesion or ductal dilatation. GALLBLADDER AND BILE DUCTS: Cholelithiasis without gallbladder wall thickening or pericholecystic fluid. PANCREAS: Unremarkable. No gross lesion or ductal dilatation. SPLEEN: Unremarkable. ADRENALS: Unremarkable. No mass. KIDNEYS AND URETERS: Unremarkable. No hydronephrosis. No solid mass. STOMACH AND BOWEL: Unremarkable. No obstruction. No gross mural thickening. APPENDIX: Not visualized. PERITONEUM: Right fat containing inguinal hernia. Small fat containing umbilical hernia. No free fluid. No free air. LYMPH NODES: Unremarkable. No enlarged lymph nodes. BLADDER: Unremarkable. REPRODUCTIVE: Bilateral testicular varicoceles. BONES: No acute fracture. Spinal, pelvic, bilateral knee and bilateral feet degenerative changes. OTHER FINDINGS: Superficial skin ulcerations along the lateral calves. Patent bilateral lower extremity arteries. IMPRESSION: Suboptimal opacification of the infrarenal IVC, pelvic and lower extremity veins markedly limiting evaluation. Numerous hypertrophy pelvic venous collaterals as well as superficial bilateral lower extremity in abdominal wall varicosities likely related to known chronic thrombosis of the bilateral lower extremity veins. Bilateral testicular varicoceles. Additional findings as above.
--- NOTE | 2017-09-01 16:09 | CARD ---
APPROVED REPORT EXAM: Two-dimensional and M-mode echocardiogram with Doppler and color Doppler. Other Information Quality : GoodRhythm : INDICATION Peripheral Edema Congestive Heart Failure RISK FACTORS Hypertension Obesity Diabetes 2D DIMENSIONS IVSd0.8 (0.7-1.1cm)LVDd5.5 (3.9-5.9cm) PWd0.8 (0.7-1.1cm)LVDs3.9 (2.5-4.0cm) FS (%) 28.5 %LVEF (%)54.5 (>50%) M-Mode DIMENSIONS RVDd3.12 (2.1-3.2cm)Left Atrium (MM)4.29 (2.5-4.0cm) IVSd0.94 (0.7-1.1cm)Aortic Root3.20 (2.2-3.7cm) LVDd5.62 (4.0-5.6cm)Aortic Cusp Exc.2.42 (1.5-2.0cm) PWd0.81 (0.7-1.1cm)FS (%) 32 % LVDs3.82 (2.0-3.8cm)LVEF (%)60 (>50%) Mitral Valve MV E Exbjghga76.4cm/sMV A Absrkyps11.0cm/sE/A ratio1.0 TDI E/Lateral E'0.0E/Medial E'0.0 Tricuspid Valve TR Peak Rcuhzcup956nf/sTR Peak Gr.[id number] LEFT VENTRICLE The Left Ventricle is borderline dilated. There is normal left ventricular wall thickness. The left ventricular systolic function is normal. The left ventricular ejection fraction is within the normal range. There is normal LV segmental wall motion. The left ventricular diastolic function is normal for age. Normal left atrial pressure. RIGHT VENTRICLE The right ventricle at uper limit of normal. The right ventricular systolic function is normal. ATRIA The left atrium is borderline dilated. The right atrium size is normal. AORTIC VALVE The aortic valve is normal in structure. No aortic regurgitation is present. MITRAL VALVE The mitral valve is normal in structure. There is no mitral valve regurgitation noted. TRICUSPID VALVE The tricuspid valve is normal in structure. There is mild tricuspid regurgitation. PULMONIC VALVE The pulmonary valve is normal in structure. GREAT VESSELS The aortic root is normal in size. The IVC is normal in size and collapses >50% with inspiration. PERICARDIAL EFFUSION There is no pericardial effusion. <Conclusion> Normal bi-ventricular function No significant valvular abnormality noted. No pericardial effusion.
--- NOTE | 2017-09-01 18:06 | CP.PCM.PN ---
Subjective - Date & Time of Evaluation Date of Evaluation: 09/01/17 Time of Evaluation: 08:00 - Subjective Subjective: evemnts noted for IVC filter removal Objective - Vital Signs/Intake and Output Vital Signs (last 24 hours): Temp Pulse Resp BP Pulse Ox 97.6 F 96 H 20 107/61 96 09/01/17 15:00 09/01/17 15:00 09/01/17 15:00 09/01/17 15:00 09/01/17 15:00 Intake and Output: 09/01/17 09/01/17 06:59 18:59 Intake Total 900 Output Total 1400 Balance -1400 900 - Medications Medications: Current Medications Collagenase (Santyl) 0 gm TOP DAILY [facility] Last Admin: 09/01/17 10:00 Dose: 1 applic Enoxaparin Sodium (Lovenox) 40 mg SC Q12H [facility] Last Admin: 09/01/17 16:23 Dose: 40 mg Ferrous Gluconate (Fergon) 324 mg PO TID [facility] Last Admin: 09/01/17 17:08 Dose: 324 mg Vancomycin/Sodium Chloride (Vancomycin 1 Gm/Ns 200 Ml) 1 gm in 200 mls @ 133.333 mls/hr IVPB Q12H [facility] PRN Reason: Protocol Stop: 09/03/17 12:01 Last Admin: 09/01/17 11:24 Dose: 133.333 mls/hr Ciprofloxacin (Cipro 400mg/200ml Dsw) 400 mg in 200 mls @ 133 mls/hr IVPB Q12H [facility] PRN Reason: Protocol Last Admin: 09/01/17 11:24 Dose: 133 mls/hr Ibuprofen (Motrin Tab) 600 mg PO Q12H PRN PRN Reason: Pain, Mild (1-3) Last Admin: 09/01/17 09:57 Dose: 600 mg Lisinopril (Zestril) 5 mg PO DAILY [facility] Last Admin: 09/01/17 09:54 Dose: 5 mg Pantoprazole Sodium (Protonix Ec Tab) 40 mg PO DAILY [facility] Last Admin: 09/01/17 09:54 Dose: 40 mg - Labs Labs: 09/01/17 08:07 09/01/17 08:07 PT 12.0 SECONDS (9.7-12.2) 08/30/17 14:15 INR 1.1 08/30/17 14:15 - Constitutional Appears: Non-toxic, Chronically Ill - Head Exam Head Exam: NORMOCEPHALIC - Eye Exam Eye Exam: PERRL - ENT Exam ENT Exam: Mucous Membranes Dry - Neck Exam Neck Exam: absent: Lymphadenopathy - Respiratory Exam Respiratory Exam: Decreased Breath Sounds - Cardiovascular Exam Cardiovascular Exam: REGULAR RHYTHM - GI/Abdominal Exam GI & Abdominal Exam: Distended, Soft Assessment and Plan (1) Diabetic ulcer of ankle Status: Acute (2) Anemia Status: Acute (3) Bilateral cellulitis of lower leg Status: Acute (4) Bilateral leg ulcer Status: Deleted (5) Cellulitis Status: Acute (6) Chronic cutaneous venous stasis ulcer Status: Acute (7) Congestive heart failure due to high blood pressure Status: Acute (8) Coronary artery disease Status: Acute (9) Hypertension Status: Acute (10) Sleep apnea Status: Acute (11) Obesity Status: Chronic
--- NOTE | 2017-09-01 18:34 | CP.PCM.PN ---
Subjective - Date & Time of Evaluation Date of Evaluation: 09/01/17 Time of Evaluation: 15:00 - Subjective Subjective: Podiatry Progress note for Dr. Peres 52 year old male was seen at bedside for chronic non-healing wounds. Patient resting comfortably, NAD. No acute events overnight. Denies any pain in his wounds. Dressings remain clean/dry/intact to bilateral LE. Offers no new complaints this visit. Denies N/V/F/D/C/SOB/QUINONEZ/dizziness. Objective - Vital Signs/Intake and Output Vital Signs (last 24 hours): Temp Pulse Resp BP Pulse Ox 97.6 F 96 H 20 107/61 96 09/01/17 15:00 09/01/17 15:00 09/01/17 15:00 09/01/17 15:00 09/01/17 15:00 Intake and Output: 09/01/17 09/01/17 06:59 18:59 Intake Total 900 Output Total 1400 Balance -1400 900 - Medications Medications: Current Medications Collagenase (Santyl) 0 gm TOP DAILY [facility] Last Admin: 09/01/17 10:00 Dose: 1 applic Enoxaparin Sodium (Lovenox) 40 mg SC Q12H [facility] Last Admin: 09/01/17 16:23 Dose: 40 mg Ferrous Gluconate (Fergon) 324 mg PO TID [facility] Last Admin: 09/01/17 17:08 Dose: 324 mg Vancomycin/Sodium Chloride (Vancomycin 1 Gm/Ns 200 Ml) 1 gm in 200 mls @ 133.333 mls/hr IVPB Q12H [facility] PRN Reason: Protocol Stop: 09/03/17 12:01 Last Admin: 09/01/17 11:24 Dose: 133.333 mls/hr Ciprofloxacin (Cipro 400mg/200ml Dsw) 400 mg in 200 mls @ 133 mls/hr IVPB Q12H [facility] PRN Reason: Protocol Last Admin: 09/01/17 11:24 Dose: 133 mls/hr Ibuprofen (Motrin Tab) 600 mg PO Q12H PRN PRN Reason: Pain, Mild (1-3) Last Admin: 09/01/17 09:57 Dose: 600 mg Lisinopril (Zestril) 5 mg PO DAILY [facility] Last Admin: 09/01/17 09:54 Dose: 5 mg Pantoprazole Sodium (Protonix Ec Tab) 40 mg PO DAILY [facility] Last Admin: 09/01/17 09:54 Dose: 40 mg - Labs Labs: 09/01/17 08:07 09/01/17 08:07 PT 12.0 SECONDS (9.7-12.2) 08/30/17 14:15 INR 1.1 08/30/17 14:15 - Constitutional Appears: Well, Non-toxic, No Acute Distress - Extremities Exam Additional comments: Lower extremity focused exam: Vasc: DP and PT pulses faintly palpable b/l. CFT > 3 seconds to all digits b/l. Skin temperature warm to warm from proximal to distal Neuro: Gross sensation diminished b/l Ortho: Tenderness on palpation to leg wounds b/l Derm: Full thickness ulceration noted to the anterior aspect of the left leg measure approximately 10 cm by 6 cm by 0.3 cm with a 75% granular and 25% fibrotic base base, with mild amount of purulence noted, moderate malodor noted. Full-thickness ulceration noted to the anterior aspect of right leg measuring approximately 2 cm by 2 cm with fibrogranular base, no malodor noted. Periwound is macerated. Erythema noted around wound sites. - Neurological Exam Neurological Exam: Alert, Awake, Oriented x3 - Psychiatric Exam Psychiatric exam: Normal Affect, Normal Mood Assessment and Plan - Assessment and Plan (Free Text) Assessment: 52 year old male with bilateral chronic non-healing wounds Plan: Patient seen and evaluated Discussed with attending, Dr. Peres Afebrile, WBC 7.7 IV abx per ID L ankle pressure index of the LLE is non-diagnosic due to possible arterial wall calcifications LE venous duplex exam:chronic partial thrombosis of the right and left common femoral, femoral and poplietal veins with severe reduction of venous return wound culture- strep viridans Continue local wound care: saline cleanse, xeroform, [facility] podiatry will cont to follow patient while in house
--- NOTE | 2017-09-01 18:46 | CP.PCM.PN ---
Subjective - Date & Time of Evaluation Date of Evaluation: 09/01/17 Time of Evaluation: 18:43 - Subjective Subjective: Scheduled to have a thrombosed IVC filter removed. Echocardiogram reveals a normal LV systolic function, mild TR with normal pulmonary systolic BP. Objective - Vital Signs/Intake and Output Vital Signs (last 24 hours): Temp Pulse Resp BP Pulse Ox 97.6 F 96 H 20 107/61 96 09/01/17 15:00 09/01/17 15:00 09/01/17 15:00 09/01/17 15:00 09/01/17 15:00 Intake and Output: 09/01/17 09/01/17 06:59 18:59 Intake Total 900 Output Total 1400 Balance -1400 900 - Medications Medications: Current Medications Collagenase (Santyl) 0 gm TOP DAILY [facility] Last Admin: 09/01/17 10:00 Dose: 1 applic Enoxaparin Sodium (Lovenox) 40 mg SC Q12H [facility] Last Admin: 09/01/17 16:23 Dose: 40 mg Ferrous Gluconate (Fergon) 324 mg PO TID [facility] Last Admin: 09/01/17 17:08 Dose: 324 mg Vancomycin/Sodium Chloride (Vancomycin 1 Gm/Ns 200 Ml) 1 gm in 200 mls @ 133.333 mls/hr IVPB Q12H [facility] PRN Reason: Protocol Stop: 09/03/17 12:01 Last Admin: 09/01/17 11:24 Dose: 133.333 mls/hr Ciprofloxacin (Cipro 400mg/200ml Dsw) 400 mg in 200 mls @ 133 mls/hr IVPB Q12H [facility] PRN Reason: Protocol Last Admin: 09/01/17 11:24 Dose: 133 mls/hr Ibuprofen (Motrin Tab) 600 mg PO Q12H PRN PRN Reason: Pain, Mild (1-3) Last Admin: 09/01/17 09:57 Dose: 600 mg Lisinopril (Zestril) 5 mg PO DAILY [facility] Last Admin: 09/01/17 09:54 Dose: 5 mg Pantoprazole Sodium (Protonix Ec Tab) 40 mg PO DAILY [facility] Last Admin: 09/01/17 09:54 Dose: 40 mg - Labs Labs: 09/01/17 08:07 09/01/17 08:07 PT 12.0 SECONDS (9.7-12.2) 08/30/17 14:15 INR 1.1 08/30/17 14:15 - Constitutional Appears: No Acute Distress, Chronically Ill - Head Exam Head Exam: NORMAL INSPECTION - Eye Exam Eye Exam: Normal appearance - ENT Exam ENT Exam: Normal Exam - Neck Exam Neck Exam: Normal Inspection - Respiratory Exam Respiratory Exam: Clear to Ausculation Bilateral, NORMAL BREATHING PATTERN - Cardiovascular Exam Cardiovascular Exam: REGULAR RHYTHM - GI/Abdominal Exam GI & Abdominal Exam: Soft, Normal Bowel Sounds - Rectal Exam Rectal Exam: Deferred - Extremities Exam Extremities Exam: Pedal Edema Additional comments: Non healing ulcers of both feet. 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
--- NOTE | 2017-09-01 22:30 | CP.PCM.PN ---
Subjective - Date & Time of Evaluation Date of Evaluation: 09/01/17 Time of Evaluation: 13:25 - Subjective Subjective: Patient oriented in all three spheres. he claims to have less lower extremity pain. Dr Baer to evaluate. Objective - Vital Signs/Intake and Output Vital Signs (last 24 hours): Temp Pulse Resp BP Pulse Ox 97.6 F 96 H 20 107/61 96 09/01/17 15:00 09/01/17 15:00 09/01/17 15:00 09/01/17 15:00 09/01/17 15:00 Intake and Output: 09/01/17 09/02/17 18:59 06:59 Intake Total 900 800 Output Total 600 Balance 900 200 - Medications Medications: Current Medications Collagenase (Santyl) 0 gm TOP DAILY [facility] Last Admin: 09/01/17 10:00 Dose: 1 applic Enoxaparin Sodium (Lovenox) 40 mg SC Q12H [facility] Last Admin: 09/01/17 16:23 Dose: 40 mg Ferrous Gluconate (Fergon) 324 mg PO TID [facility] Last Admin: 09/01/17 17:08 Dose: 324 mg Vancomycin/Sodium Chloride (Vancomycin 1 Gm/Ns 200 Ml) 1 gm in 200 mls @ 133.333 mls/hr IVPB Q12H [facility] PRN Reason: Protocol Stop: 09/03/17 12:01 Last Admin: 09/01/17 11:24 Dose: 133.333 mls/hr Ciprofloxacin (Cipro 400mg/200ml Dsw) 400 mg in 200 mls @ 133 mls/hr IVPB Q12H [facility] PRN Reason: Protocol Last Admin: 09/01/17 11:24 Dose: 133 mls/hr Ibuprofen (Motrin Tab) 600 mg PO Q12H PRN PRN Reason: Pain, Mild (1-3) Last Admin: 09/01/17 09:57 Dose: 600 mg Lisinopril (Zestril) 5 mg PO DAILY [facility] Last Admin: 09/01/17 09:54 Dose: 5 mg Pantoprazole Sodium (Protonix Ec Tab) 40 mg PO DAILY [facility] Last Admin: 09/01/17 09:54 Dose: 40 mg - Labs Labs: 09/01/17 08:07 09/01/17 08:07 PT 12.0 SECONDS (9.7-12.2) 08/30/17 14:15 INR 1.1 08/30/17 14:15 - Constitutional Appears: No Acute Distress - Head Exam Head Exam: NORMOCEPHALIC - Eye Exam Eye Exam: Normal appearance Pupil Exam: NORMAL ACCOMODATION - ENT Exam ENT Exam: Normal Exam - Neck Exam Neck Exam: Normal Inspection - Respiratory Exam Respiratory Exam: Decreased Breath Sounds - Cardiovascular Exam Cardiovascular Exam: REGULAR RHYTHM - GI/Abdominal Exam GI & Abdominal Exam: Diminished Bowel Sounds - Rectal Exam Rectal Exam: Deferred - Exam Exam: NORMAL INSPECTION - Extremities Exam Extremities Exam: Tenderness - Back Exam Back Exam: NORMAL INSPECTION - Neurological Exam Neurological Exam: Oriented x3 - Psychiatric Exam Psychiatric exam: Depressed - Skin Skin Exam: Dry Assessment and Plan (1) Bilateral leg ulcer Status: Deleted (2) Degenerative joint disease Status: Acute (3) Hypertension Status: Acute (4) Obesity Status: Chronic
[2017-09-02] MEDS: Enoxaparin 40 mg Syringe SC SCH ×2 (04:38→15:30)
[2017-09-02 08:14] LABS: BASO # 0.1 K/uL (0.0-0.2); BASO % 0.7 % (0.0-2.0); EOS # 0.1 K/uL (0.0-0.7); EOS % 1.4 % (0.0-4.0); HEMOGLOBIN 12.4 g/dL (12.0-18.0); LYMPH # 1.1 K/uL (1.0-4.3); LYMPH % 11.7 % (20.0-40.0); MEAN CELL VOLUME 87.1 fL (80.0-94.0); MEAN CORPUSCULAR HEMOGLOBIN 29.9 pg (27.0-31.0); MEAN CORPUSCULAR HGB CONC 34.3 g/dL (33.0-37.0); MEAN PLATELET VOLUME 7.5 fL (7.2-11.7); MONO # 0.9 K/uL (0.0-0.8); MONO % 9.9 % (0.0-10.0); NEUT # 6.9 K/uL (1.8-7.0); NEUT % 76.3 % (50.0-75.0); NRBC % 0.1 % (0.0-2.0); RBC 4.15 Mil/uL (4.40-5.90); RED CELL DISTRIBUTION WIDTH 14.1 % (11.5-14.5); WHITE BLOOD COUNT 9.1 K/uL (4.8-10.8)
[2017-09-02 08:35] LABS: ALBUMIN 3.7 g/dL (3.5-5.0); AST/SGOT 15 U/L (17-59); BLOOD UREA NITROGEN 17 mg/dL (9-20); CALCIUM 8.7 mg/dl (8.6-10.4); GFR AFRICAN-AMERICAN > 60; GFR NON-AFRICAN AMERICAN > 60
[2017-09-02 08:36] LABS: ALT/SGPT < 6 U/L (21-72)
[2017-09-02] MEDS: Pantoprazole 40 mg EC Tab PO SCH (09:47)
[2017-09-02] MEDS: Collagenase 250 Units/gm Ointment(30 gm) TOP SCH (09:48)
[2017-09-02] MEDS: Ciprofloxacin 400mg/200ml D5W 400 MG/200 ML BAG IVPB SCH ×2 (11:10→22:31)
[2017-09-02] MEDS: Vancomycin 1 gm/NS 200 ml 1 GM/200 ML BAG IVPB SCH ×2 (12:43→23:37)
--- NOTE | 2017-09-02 15:46 | CP.PCM.PN ---
Subjective - Date & Time of Evaluation Date of Evaluation: 09/02/17 Time of Evaluation: 15:40 - Subjective Subjective: Podiatry Progress note for Dr. Peres 52 year old male was seen at bedside for chronic non-healing wounds. Patient resting comfortably, NAD. No acute events overnight. Denies any pain in his wounds. Dressings remain clean/dry/intact to bilateral LE. Denies N/V/F/D/C/SOB/ QUINONEZ/dizziness. Offers no new complaints this visit. Objective - Vital Signs/Intake and Output Vital Signs (last 24 hours): Temp Pulse Resp BP Pulse Ox 98.5 F 77 18 105/69 96 09/02/17 07:30 09/02/17 07:30 09/02/17 07:30 09/02/17 07:30 09/02/17 07:30 Intake and Output: 09/02/17 09/02/17 06:59 18:59 Intake Total 800 800 Output Total 1300 750 Balance -500 50 - Medications Medications: Current Medications Collagenase (Santyl) 0 gm TOP DAILY [facility] Last Admin: 09/02/17 09:48 Dose: 1 applic Enoxaparin Sodium (Lovenox) 40 mg SC Q12H [facility] Last Admin: 09/02/17 15:30 Dose: 40 mg Ferrous Gluconate (Fergon) 324 mg PO TID [facility] Last Admin: 09/02/17 13:53 Dose: 324 mg Vancomycin/Sodium Chloride (Vancomycin 1 Gm/Ns 200 Ml) 1 gm in 200 mls @ 133.333 mls/hr IVPB Q12H [facility] PRN Reason: Protocol Stop: 09/03/17 12:01 Last Admin: 09/02/17 12:43 Dose: 133.333 mls/hr Ciprofloxacin (Cipro 400mg/200ml Dsw) 400 mg in 200 mls @ 133 mls/hr IVPB Q12H [facility] PRN Reason: Protocol Last Admin: 09/02/17 11:10 Dose: 133 mls/hr Ibuprofen (Motrin Tab) 600 mg PO Q12H PRN PRN Reason: Pain, Mild (1-3) Last Admin: 09/02/17 09:57 Dose: 600 mg Lisinopril (Zestril) 5 mg PO DAILY [facility] Last Admin: 09/02/17 09:47 Dose: 5 mg Pantoprazole Sodium (Protonix Ec Tab) 40 mg PO DAILY [facility] Last Admin: 09/02/17 09:47 Dose: 40 mg - Labs Labs: 09/02/17 08:00 09/02/17 08:00 PT 12.0 SECONDS (9.7-12.2) 08/30/17 14:15 INR 1.1 08/30/17 14:15 - Constitutional Appears: Well, Non-toxic, No Acute Distress - Extremities Exam Additional comments: Lower extremity focused exam: Vasc: DP and PT pulses faintly palpable b/l. CFT > 3 seconds to all digits b/l. Skin temperature warm to warm from proximal to distal Derm: Full thickness ulceration noted to the anterior aspect of the left leg measure approximately 10 cm by 6 cm by 0.3 cm with a 75% granular and 25% fibrotic base base, with mild amount of purulence noted, moderate malodor noted. Full-thickness ulceration noted to the anterior aspect of right leg measuring approximately 2 cm by 2 cm with fibrogranular base, no malodor noted. Periwound is macerated. Erythema noted around wound sites. Neuro: Gross sensation diminished b/l Ortho: Tenderness on palpation to leg wounds b/l - Neurological Exam Neurological Exam: Alert, Awake, Oriented x3 - Psychiatric Exam Psychiatric exam: Normal Affect, Normal Mood Assessment and Plan - Assessment and Plan (Free Text) Assessment: 52 year old male with bilateral chronic non-healing wounds Plan: Patient seen and evaluated Discussed with attending, Dr. 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
--- NOTE | 2017-09-02 23:11 | CP.PCM.PN ---
Subjective - Date & Time of Evaluation Date of Evaluation: 09/02/17 Time of Evaluation: 15:40 - Subjective Subjective: Patient complains of knee pain. He is schedule to replace filter. Vascular ulcerations responding to antibiotic therapy. Objective - Vital Signs/Intake and Output Vital Signs (last 24 hours): Temp Pulse Resp BP Pulse Ox 97.8 F 97 H 20 101/69 87 L 09/02/17 16:34 09/02/17 16:34 09/02/17 16:34 09/02/17 18:13 09/02/17 18:13 Intake and Output: 09/02/17 09/03/17 18:59 06:59 Intake Total 800 600 Output Total 750 Balance 50 600 - Medications Medications: Current Medications Collagenase (Santyl) 0 gm TOP DAILY [facility] Last Admin: 09/02/17 09:48 Dose: 1 applic Enoxaparin Sodium (Lovenox) 40 mg SC Q12H [facility] Last Admin: 09/02/17 15:30 Dose: 40 mg Ferrous Gluconate (Fergon) 324 mg PO TID [facility] Last Admin: 09/02/17 17:05 Dose: 324 mg Vancomycin/Sodium Chloride (Vancomycin 1 Gm/Ns 200 Ml) 1 gm in 200 mls @ 133.333 mls/hr IVPB Q12H [facility] PRN Reason: Protocol Stop: 09/03/17 12:01 Last Admin: 09/02/17 12:43 Dose: 133.333 mls/hr Ciprofloxacin (Cipro 400mg/200ml Dsw) 400 mg in 200 mls @ 133 mls/hr IVPB Q12H [facility] PRN Reason: Protocol Last Admin: 09/02/17 22:31 Dose: 133 mls/hr Ibuprofen (Motrin Tab) 600 mg PO Q12H PRN PRN Reason: Pain, Mild (1-3) Last Admin: 09/02/17 22:30 Dose: 600 mg Lisinopril (Zestril) 5 mg PO DAILY [facility] Last Admin: 09/02/17 09:47 Dose: 5 mg Pantoprazole Sodium (Protonix Ec Tab) 40 mg PO DAILY [facility] Last Admin: 09/02/17 09:47 Dose: 40 mg - Labs Labs: 09/02/17 08:00 09/02/17 08:00 PT 12.0 SECONDS (9.7-12.2) 08/30/17 14:15 INR 1.1 08/30/17 14:15 - Constitutional Appears: No Acute Distress - Head Exam Head Exam: NORMAL INSPECTION - Eye Exam Eye Exam: Normal appearance Pupil Exam: NORMAL ACCOMODATION - ENT Exam ENT Exam: Normal Exam - Neck Exam Neck Exam: Normal Inspection - Respiratory Exam Respiratory Exam: Decreased Breath Sounds - Cardiovascular Exam Cardiovascular Exam: REGULAR RHYTHM - GI/Abdominal Exam GI & Abdominal Exam: Soft, Hyperactive Bowel Sounds - Rectal Exam Rectal Exam: Deferred - Exam Exam: NORMAL INSPECTION - Back Exam Back Exam: NORMAL INSPECTION - Neurological Exam Neurological Exam: Oriented x3 - Psychiatric Exam Psychiatric exam: Depressed - Skin Skin Exam: Dry Assessment and Plan (1) Bilateral leg ulcer Status: Deleted (2) Degenerative joint disease Status: Acute (3) Hypertension Status: Acute (4) Obesity Status: Chronic
[2017-09-03] MEDS: Enoxaparin 40 mg Syringe SC SCH ×2 (04:44→15:38)
[2017-09-03] MEDS: Pantoprazole 40 mg EC Tab PO SCH (09:53)
[2017-09-03] MEDS: Vancomycin 1 gm/NS 200 ml 1 GM/200 ML BAG IVPB SCH (11:41)
[2017-09-03] MEDS: Collagenase 250 Units/gm Ointment(30 gm) TOP SCH (11:42)
[2017-09-03] MEDS: Ciprofloxacin 400mg/200ml D5W 400 MG/200 ML BAG IVPB SCH ×2 (11:42→22:46)
--- NOTE | 2017-09-03 15:43 | CP.PCM.PN ---
Subjective - Date & Time of Evaluation Date of Evaluation: 09/03/17 Time of Evaluation: 10:00 - Subjective Subjective: IV rx renewed for IVC removal Objective - Vital Signs/Intake and Output Vital Signs (last 24 hours): Temp Pulse Resp BP Pulse Ox 97.5 F L 77 20 106/69 95 09/03/17 07:30 09/03/17 07:30 09/03/17 07:30 09/03/17 07:30 09/03/17 07:30 Intake and Output: 09/03/17 09/03/17 06:59 18:59 Intake Total 600 900 Balance 600 900 - Medications Medications: Current Medications Collagenase (Santyl) 0 gm TOP DAILY [facility] Last Admin: 09/03/17 11:42 Dose: Not Given Enoxaparin Sodium (Lovenox) 40 mg SC Q12H [facility] Last Admin: 09/03/17 15:38 Dose: 40 mg Ferrous Gluconate (Fergon) 324 mg PO TID [facility] Last Admin: 09/03/17 13:16 Dose: 324 mg Ciprofloxacin (Cipro 400mg/200ml Dsw) 400 mg in 200 mls @ 133 mls/hr IVPB Q12H [facility] PRN Reason: Protocol Last Admin: 09/03/17 11:42 Dose: 133 mls/hr Ibuprofen (Motrin Tab) 600 mg PO Q12H PRN PRN Reason: Pain, Mild (1-3) Last Admin: 09/03/17 11:39 Dose: 600 mg Lisinopril (Zestril) 5 mg PO DAILY [facility] Last Admin: 09/03/17 09:53 Dose: 5 mg Pantoprazole Sodium (Protonix Ec Tab) 40 mg PO DAILY [facility] Last Admin: 09/03/17 09:53 Dose: 40 mg - Labs Labs: 09/02/17 08:00 09/02/17 08:00 PT 12.0 SECONDS (9.7-12.2) 08/30/17 14:15 INR 1.1 08/30/17 14:15 - Constitutional Appears: Non-toxic, Chronically Ill - Head Exam Head Exam: NORMOCEPHALIC - Eye Exam Eye Exam: PERRL - ENT Exam ENT Exam: Mucous Membranes Dry - Neck Exam Neck Exam: absent: Lymphadenopathy - Respiratory Exam Respiratory Exam: Decreased Breath Sounds - Cardiovascular Exam Cardiovascular Exam: REGULAR RHYTHM - GI/Abdominal Exam GI & Abdominal Exam: Distended Assessment and Plan (1) Diabetic ulcer of ankle Status: Acute (2) Anemia Status: Acute (3) Bilateral cellulitis of lower leg Status: Acute (4) Bilateral leg ulcer Status: Deleted (5) Cellulitis Status: Acute (6) Chronic cutaneous venous stasis ulcer Status: Acute (7) Congestive heart failure due to high blood pressure Status: Acute (8) Coronary artery disease Status: Acute (9) Hypertension Status: Acute (10) Sleep apnea Status: Acute (11) Obesity Status: Chronic
--- NOTE | 2017-09-03 16:19 | CP.PCM.PN ---
Subjective - Date & Time of Evaluation Date of Evaluation: 09/03/17 Time of Evaluation: 16:16 - Subjective Subjective: Podiatry Progress note for Dr. Peres 52 year old male was seen at bedside for chronic non-healing wounds. Patient resting comfortably, NAD. No acute events overnight. Denies any pain in his wounds unless if it is touched. Dressings remain clean/dry/intact to bilateral LE. Denies N/V/F/D/C/SOB/QUINONEZ/dizziness. Offers no new complaints this visit. Objective - Vital Signs/Intake and Output Vital Signs (last 24 hours): Temp Pulse Resp BP Pulse Ox 98.2 F 79 20 97/65 L 95 09/03/17 15:00 09/03/17 15:00 09/03/17 15:00 09/03/17 15:00 09/03/17 07:30 Intake and Output: 09/03/17 09/03/17 06:59 18:59 Intake Total 600 900 Balance 600 900 - Medications Medications: Current Medications Collagenase (Santyl) 0 gm TOP DAILY [facility] Last Admin: 09/03/17 11:42 Dose: Not Given Enoxaparin Sodium (Lovenox) 40 mg SC Q12H [facility] Last Admin: 09/03/17 15:38 Dose: 40 mg Ferrous Gluconate (Fergon) 324 mg PO TID [facility] Last Admin: 09/03/17 13:16 Dose: 324 mg Ciprofloxacin (Cipro 400mg/200ml Dsw) 400 mg in 200 mls @ 133 mls/hr IVPB Q12H [facility] PRN Reason: Protocol Last Admin: 09/03/17 11:42 Dose: 133 mls/hr Ibuprofen (Motrin Tab) 600 mg PO Q12H PRN PRN Reason: Pain, Mild (1-3) Last Admin: 09/03/17 11:39 Dose: 600 mg Lisinopril (Zestril) 5 mg PO DAILY [facility] Last Admin: 09/03/17 09:53 Dose: 5 mg Pantoprazole Sodium (Protonix Ec Tab) 40 mg PO DAILY [facility] Last Admin: 09/03/17 09:53 Dose: 40 mg - Labs Labs: 09/02/17 08:00 09/02/17 08:00 PT 12.0 SECONDS (9.7-12.2) 08/30/17 14:15 INR 1.1 08/30/17 14:15 - Constitutional Appears: Well, Non-toxic, No Acute Distress - Extremities Exam Additional comments: Lower extremity focused exam: Vasc: DP and PT pulses faintly palpable b/l. CFT > 3 seconds to all digits b/l. Skin temperature warm to warm from proximal to distal Derm: Full thickness ulceration noted to the anterior aspect of the left leg measure approximately 10 cm by 6 cm by 0.3 cm with a 75% granular and 25% fibrotic base base, with mild amount of purulence noted, moderate malodor noted. Full-thickness ulceration noted to the anterior aspect of right leg measuring approximately 2 cm by 2 cm with fibrogranular base, no malodor noted. Periwound is macerated. Erythema noted around wound sites. Neuro: Gross sensation diminished b/l Ortho: Tenderness on palpation to leg wounds b/l - Neurological Exam Neurological Exam: Alert, Awake, Oriented x3 - Psychiatric Exam Psychiatric exam: Normal Affect, Normal Mood Assessment and Plan - Assessment and Plan (Free Text) Assessment: 52 year old male with bilateral chronic non-healing wounds Plan: Patient seen and evaluated Discussed with attending, Dr. 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
--- NOTE | 2017-09-03 19:15 | CP.PCM.PN ---
Subjective - Date & Time of Evaluation Date of Evaluation: 09/03/17 Time of Evaluation: 16:45 - Subjective Subjective: Patient complains of leg pain only when standing. He is scheduled for filter removable. He denies any shortness of breath or chest pain. Objective - Vital Signs/Intake and Output Vital Signs (last 24 hours): Temp Pulse Resp BP Pulse Ox 98.2 F 79 20 97/65 L 95 09/03/17 15:00 09/03/17 15:00 09/03/17 15:00 09/03/17 15:00 09/03/17 07:30 Intake and Output: 09/03/17 09/04/17 18:59 06:59 Intake Total 1200 Balance 1200 - Medications Medications: Current Medications Collagenase (Santyl) 0 gm TOP DAILY [facility] Last Admin: 09/03/17 11:42 Dose: Not Given Enoxaparin Sodium (Lovenox) 40 mg SC Q12H [facility] Last Admin: 09/03/17 15:38 Dose: 40 mg Ferrous Gluconate (Fergon) 324 mg PO TID [facility] Last Admin: 09/03/17 17:59 Dose: 324 mg Ciprofloxacin (Cipro 400mg/200ml Dsw) 400 mg in 200 mls @ 133 mls/hr IVPB Q12H [facility] PRN Reason: Protocol Last Admin: 09/03/17 11:42 Dose: 133 mls/hr Ibuprofen (Motrin Tab) 600 mg PO Q12H PRN PRN Reason: Pain, Mild (1-3) Last Admin: 09/03/17 11:39 Dose: 600 mg Lisinopril (Zestril) 5 mg PO DAILY [facility] Last Admin: 09/03/17 09:53 Dose: 5 mg Pantoprazole Sodium (Protonix Ec Tab) 40 mg PO DAILY [facility] Last Admin: 09/03/17 09:53 Dose: 40 mg - Labs Labs: 09/02/17 08:00 09/02/17 08:00 PT 12.0 SECONDS (9.7-12.2) 08/30/17 14:15 INR 1.1 08/30/17 14:15 - Constitutional Appears: No Acute Distress - Head Exam Head Exam: NORMAL INSPECTION - Eye Exam Eye Exam: Normal appearance Pupil Exam: NORMAL ACCOMODATION - ENT Exam ENT Exam: Normal Exam - Neck Exam Neck Exam: Normal Inspection - Respiratory Exam Respiratory Exam: Decreased Breath Sounds - Cardiovascular Exam Cardiovascular Exam: REGULAR RHYTHM - GI/Abdominal Exam GI & Abdominal Exam: Hyperactive Bowel Sounds - Rectal Exam Rectal Exam: Deferred - Exam Exam: NORMAL INSPECTION - Extremities Exam Extremities Exam: Tenderness - Back Exam Back Exam: NORMAL INSPECTION - Neurological Exam Neurological Exam: Oriented x3 - Psychiatric Exam Psychiatric exam: Depressed - Skin Skin Exam: Dry Assessment and Plan (1) Degenerative joint disease Status: Acute (2) Hypertension Status: Acute (3) Obesity Status: Chronic (4) Peripheral vascular disease of lower extremity with ulceration Status: Acute
--- NOTE | 2017-09-03 21:48 | CP.PCM.PN ---
Subjective - Date & Time of Evaluation Date of Evaluation: 09/03/17 Time of Evaluation: 21:45 - Subjective Subjective: wound discomfort improving painful on standing up and ambulation Objective - Vital Signs/Intake and Output Vital Signs (last 24 hours): Temp Pulse Resp BP Pulse Ox 98.3 F 98 H 18 105/69 95 09/03/17 20:30 09/03/17 20:30 09/03/17 20:30 09/03/17 20:30 09/03/17 07:30 Intake and Output: 09/03/17 09/04/17 18:59 06:59 Intake Total 1200 Balance 1200 - Medications Medications: Current Medications Collagenase (Santyl) 0 gm TOP DAILY [facility] Last Admin: 09/03/17 11:42 Dose: Not Given Enoxaparin Sodium (Lovenox) 40 mg SC Q12H [facility] Last Admin: 09/03/17 15:38 Dose: 40 mg Ferrous Gluconate (Fergon) 324 mg PO TID [facility] Last Admin: 09/03/17 17:59 Dose: 324 mg Ciprofloxacin (Cipro 400mg/200ml Dsw) 400 mg in 200 mls @ 133 mls/hr IVPB Q12H [facility] PRN Reason: Protocol Last Admin: 09/03/17 11:42 Dose: 133 mls/hr Ibuprofen (Motrin Tab) 600 mg PO Q12H PRN PRN Reason: Pain, Mild (1-3) Last Admin: 09/03/17 11:39 Dose: 600 mg Lisinopril (Zestril) 5 mg PO DAILY [facility] Last Admin: 09/03/17 09:53 Dose: 5 mg Pantoprazole Sodium (Protonix Ec Tab) 40 mg PO DAILY [facility] Last Admin: 09/03/17 09:53 Dose: 40 mg - Labs Labs: 09/02/17 08:00 09/02/17 08:00 PT 12.0 SECONDS (9.7-12.2) 08/30/17 14:15 INR 1.1 08/30/17 14:15 - Constitutional Appears: Well - Head Exam Head Exam: ATRAUMATIC, NORMAL INSPECTION, NORMOCEPHALIC - Eye Exam Eye Exam: EOMI, Normal appearance, PERRL Pupil Exam: NORMAL ACCOMODATION, PERRL - ENT Exam ENT Exam: Mucous Membranes Moist, Normal Exam - Neck Exam Neck Exam: Full ROM, Normal Inspection. absent: Lymphadenopathy - Respiratory Exam Respiratory Exam: Clear to Ausculation Bilateral, NORMAL BREATHING PATTERN - Cardiovascular Exam Cardiovascular Exam: REGULAR RHYTHM, +S1, +S2, Murmur - GI/Abdominal Exam GI & Abdominal Exam: Soft, Normal Bowel Sounds. absent: Tenderness - Extremities Exam Extremities Exam: Full ROM, Normal Capillary Refill, Normal Inspection, Pedal Edema. 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
[2017-09-03] MEDS ORDERED: Enoxaparin 100 mg Syringe SC SCH (22:00)
[2017-09-04] MEDS: Enoxaparin 100 mg Syringe SC SCH ×2 (09:06→21:57)
[2017-09-04] MEDS: Pantoprazole 40 mg EC Tab PO SCH (09:06)
[2017-09-04] MEDS: Collagenase 250 Units/gm Ointment(30 gm) TOP SCH (09:07)
--- NOTE | 2017-09-04 10:45 | CP.PCM.PN ---
<Christo Mackay - Last Filed: 09/04/17 17:59> Subjective - Date & Time of Evaluation Date of Evaluation: 09/04/17 Time of Evaluation: 10:45 - Subjective Subjective: Christo Mackay PGY1 Cardiology Consult for Dr. Prince Patient was seen and examined at bedside. He is feeling well and offers no complaints. He is fully understanding of the plan moving forward and agrees to it. He denies chest pain, fevers/chills, n/v, shortness of breath or worsening leg pain. Objective - Vital Signs/Intake and Output Vital Signs (last 24 hours): Temp Pulse Resp BP Pulse Ox 97.9 F 83 20 97/58 L 95 09/04/17 08:14 09/04/17 08:14 09/04/17 08:14 09/04/17 08:14 09/04/17 08:14 Intake and Output: 09/04/17 09/04/17 06:59 18:59 Intake Total 400 Balance 400 - Medications Medications: Current Medications Collagenase (Santyl) 0 gm TOP DAILY [facility] Last Admin: 09/04/17 09:07 Dose: Not Given Enoxaparin Sodium (Lovenox) 100 mg SC Q12 [facility] Last Admin: 09/04/17 09:06 Dose: 100 mg Ferrous Gluconate (Fergon) 324 mg PO TID [facility] Last Admin: 09/04/17 09:06 Dose: 324 mg Ciprofloxacin (Cipro 400mg/200ml Dsw) 400 mg in 200 mls @ 133 mls/hr IVPB Q12H [facility] PRN Reason: Protocol Last Admin: 09/03/17 22:46 Dose: 133 mls/hr Ibuprofen (Motrin Tab) 600 mg PO Q12H PRN PRN Reason: Pain, Mild (1-3) Last Admin: 09/04/17 09:05 Dose: 600 mg Lisinopril (Zestril) 5 mg PO DAILY [facility] Last Admin: 09/04/17 09:07 Dose: Not Given Pantoprazole Sodium (Protonix Ec Tab) 40 mg PO DAILY [facility] Last Admin: 09/04/17 09:06 Dose: 40 mg - Labs Labs: 09/02/17 08:00 09/02/17 08:00 PT 12.0 SECONDS (9.7-12.2) 08/30/17 14:15 INR 1.1 08/30/17 14:15 - Constitutional Appears: Well, Non-toxic, No Acute Distress - Head Exam Head Exam: NORMAL INSPECTION - Eye Exam Eye Exam: EOMI, Normal appearance - ENT Exam ENT Exam: Mucous Membranes Moist - Neck Exam Neck Exam: Full ROM - Respiratory Exam Respiratory Exam: Clear to Ausculation Bilateral, NORMAL BREATHING PATTERN. absent: Rales, Rhonchi, Wheezes - Cardiovascular Exam Cardiovascular Exam: RRR, +S1, +S2 - GI/Abdominal Exam GI & Abdominal Exam: Soft, Normal Bowel Sounds. 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 Patient is agreeable to thrombolysis. Plan: 1) Bilateral non-healing ulcers likely secondary to chronic partial thrombosis of the lower extremity venous circulation - Suboptimal opacification of the infrarenal IVC, pelvic and lower extremity veins markedly limiting evaluation. - Vital signs and labs were reviewed - EKOS thrombolysis with localized tPa administration tentatively planned for Monday - wound culture shows strep viridans from left leg; on isolation and contact precautions - on cipro for abx - on santyl 2) Lower extremity edema - Weight checks daily - Echo shows EF 55% 3) Prophlyaxis - ptx and lovenox Case reviewed and discussed with Dr. Prince <Jose Prince - Last Filed: 09/06/17 09:53> Objective - Vital Signs/Intake and Output Vital Signs (last 24 hours): Temp Pulse Resp BP Pulse Ox 98.9 F 98 H 20 105/69 95 09/06/17 08:08 09/06/17 08:08 09/06/17 08:08 09/06/17 08:08 09/06/17 08:08 Intake and Output: 09/06/17 09/06/17 06:59 18:59 Output Total 100 Balance -100 - Medications Medications: Current Medications Collagenase (Santyl) 0 gm TOP DAILY [facility] Last Admin: 09/05/17 12:44 Dose: Not Given Enoxaparin Sodium (Lovenox) 100 mg SC Q12 [facility] Last Admin: 09/05/17 22:26 Dose: 100 mg Ferrous Gluconate (Fergon) 324 mg PO TID [facility] Last Admin: 09/05/17 17:46 Dose: 324 mg Ciprofloxacin (Cipro 400mg/200ml Dsw) 400 mg in 200 mls @ 133 mls/hr IVPB Q12H [facility] PRN Reason: Protocol Last Admin: 09/05/17 22:31 Dose: 133 mls/hr Vancomycin/Sodium Chloride (Vancomycin 1 Gm/Ns 200 Ml) 1 gm in 200 mls @ 166.6 mls/hr IVPB Q12H [facility] PRN Reason: Protocol Stop: 09/10/17 12:01 Last Admin: 09/06/17 00:11 Dose: 166.6 mls/hr Ibuprofen (Motrin Tab) 600 mg PO Q12H PRN PRN Reason: Pain, Mild (1-3) Last Admin: 09/05/17 09:07 Dose: 600 mg Lisinopril (Zestril) 5 mg PO DAILY [facility] Last Admin: 09/05/17 09:07 Dose: 5 mg Pantoprazole Sodium (Protonix Ec Tab) 40 mg PO DAILY [facility] Last Admin: 09/05/17 09:07 Dose: 40 mg - Labs Labs: 09/06/17 08:20 09/06/17 08:20 PT 14.5 SECONDS (9.7-12.2) H 09/05/17 13:46 INR 1.3 09/05/17 13:46 APTT 37 SECONDS (21-34) H 09/05/17 13:46 Assessment and Plan (1) IVC thrombosis Status: Acute (2) Hypertension Status: Acute (3) Infected stasis ulcer of left lower extremity Status: Acute (4) MRSA (methicillin resistant Staphylococcus aureus) infection Status: Acute (5) Ulcerated varicose veins of leg Status: Acute Attending/Attestation - Attestation I have personally seen and examined this patient.: Yes I have fully participated in the care of the patient.: Yes I have reviewed all pertinent clinical information, including history, physical exam and plan: Yes Notes (Text): 09/06/17 09:53 plan for venogram/throbolysis in 48 hours
[2017-09-04] MEDS: Ciprofloxacin 400mg/200ml D5W 400 MG/200 ML BAG IVPB SCH ×2 (11:36→22:33)
--- NOTE | 2017-09-04 12:05 | CP.PCM.PN ---
Subjective - Date & Time of Evaluation Date of Evaluation: 09/04/17 Time of Evaluation: 12:04 - Subjective Subjective: Podiatry Progress note for Dr. Peres 52 year old male was seen at bedside for chronic non-healing wounds. Patient resting comfortably, NAD. No acute events overnight. Denies any pain in his wounds unless if it is touched. Dressings remain clean/dry/intact to bilateral LE. Denies N/V/F/D/C/SOB/QUINONEZ/dizziness. Objective - Vital Signs/Intake and Output Vital Signs (last 24 hours): Temp Pulse Resp BP Pulse Ox 97.9 F 83 20 97/58 L 95 09/04/17 08:14 09/04/17 08:14 09/04/17 08:14 09/04/17 08:14 09/04/17 08:14 Intake and Output: 09/04/17 09/04/17 06:59 18:59 Intake Total 400 Balance 400 - Medications Medications: Current Medications Collagenase (Santyl) 0 gm TOP DAILY [facility] Last Admin: 09/04/17 09:07 Dose: Not Given Enoxaparin Sodium (Lovenox) 100 mg SC Q12 [facility] Last Admin: 09/04/17 09:06 Dose: 100 mg Ferrous Gluconate (Fergon) 324 mg PO TID [facility] Last Admin: 09/04/17 09:06 Dose: 324 mg Ciprofloxacin (Cipro 400mg/200ml Dsw) 400 mg in 200 mls @ 133 mls/hr IVPB Q12H [facility] PRN Reason: Protocol Last Admin: 09/04/17 11:36 Dose: 133 mls/hr Ibuprofen (Motrin Tab) 600 mg PO Q12H PRN PRN Reason: Pain, Mild (1-3) Last Admin: 09/04/17 09:05 Dose: 600 mg Lisinopril (Zestril) 5 mg PO DAILY [facility] Last Admin: 09/04/17 09:07 Dose: Not Given Pantoprazole Sodium (Protonix Ec Tab) 40 mg PO DAILY [facility] Last Admin: 09/04/17 09:06 Dose: 40 mg - Labs Labs: 09/02/17 08:00 09/02/17 08:00 PT 12.0 SECONDS (9.7-12.2) 08/30/17 14:15 INR 1.1 08/30/17 14:15 - Constitutional Appears: Well, Non-toxic, No Acute Distress - Extremities Exam Additional comments: Lower extremity focused exam: Vasc: DP and PT pulses faintly palpable b/l. CFT > 3 seconds to all digits b/l. Skin temperature warm to warm from proximal to distal Derm: Full thickness ulceration noted to the anterior aspect of the left leg measure approximately 10 cm by 6 cm by 0.3 cm with a hypergranular base, with mild amount of purulence noted, moderate malodor noted. Full-thickness ulceration noted to the anterior aspect of right leg measuring approximately 2 cm by 2 cm with hypergranular base, no malodor noted. Periwound is macerated. Dark Erythema noted around wound sites. Neuro: Gross sensation diminished b/l Ortho: Tenderness on palpation to leg wounds b/l - Neurological Exam Neurological Exam: Alert, Awake, Oriented x3 - Psychiatric Exam Psychiatric exam: Normal Affect, Normal Mood Assessment and Plan - Assessment and Plan (Free Text) Assessment: 52 year old male with bilateral chronic non-healing wounds Plan: Patient seen and evaluated Discussed with attending, Dr. 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
--- NOTE | 2017-09-04 22:11 | CP.PCM.PN ---
Subjective - Date & Time of Evaluation Date of Evaluation: 09/04/17 Time of Evaluation: 17:50 - Subjective Subjective: Denies any pain or discomfort. Scheduled for proceedure in AM. Vascular ulcerations slowly responding to antibiotic therapy Objective - Vital Signs/Intake and Output Vital Signs (last 24 hours): Temp Pulse Resp BP Pulse Ox 97.4 F L 90 20 117/74 98 09/04/17 16:21 09/04/17 16:21 09/04/17 16:21 09/04/17 16:21 09/04/17 16:21 Intake and Output: 09/04/17 09/05/17 18:59 06:59 Intake Total 600 Output Total 800 Balance -200 - Medications Medications: Current Medications Collagenase (Santyl) 0 gm TOP DAILY [facility] Last Admin: 09/04/17 09:07 Dose: Not Given Enoxaparin Sodium (Lovenox) 100 mg SC Q12 [facility] Last Admin: 09/04/17 21:57 Dose: 100 mg Ferrous Gluconate (Fergon) 324 mg PO TID [facility] Last Admin: 09/04/17 18:08 Dose: 324 mg Ciprofloxacin (Cipro 400mg/200ml Dsw) 400 mg in 200 mls @ 133 mls/hr IVPB Q12H [facility] PRN Reason: Protocol Last Admin: 09/04/17 11:36 Dose: 133 mls/hr Ibuprofen (Motrin Tab) 600 mg PO Q12H PRN PRN Reason: Pain, Mild (1-3) Last Admin: 09/04/17 09:05 Dose: 600 mg Lisinopril (Zestril) 5 mg PO DAILY [facility] Last Admin: 09/04/17 09:07 Dose: Not Given Pantoprazole Sodium (Protonix Ec Tab) 40 mg PO DAILY [facility] Last Admin: 09/04/17 09:06 Dose: 40 mg - Labs Labs: 09/02/17 08:00 09/02/17 08:00 PT 12.0 SECONDS (9.7-12.2) 08/30/17 14:15 INR 1.1 08/30/17 14:15 - Constitutional Appears: No Acute Distress - Head Exam Head Exam: NORMOCEPHALIC - Eye Exam Eye Exam: Normal appearance Pupil Exam: NORMAL ACCOMODATION - ENT Exam ENT Exam: Normal Exam - Neck Exam Neck Exam: Normal Inspection - Respiratory Exam Respiratory Exam: Decreased Breath Sounds - Cardiovascular Exam Cardiovascular Exam: REGULAR RHYTHM - GI/Abdominal Exam GI & Abdominal Exam: Hyperactive Bowel Sounds - Rectal Exam Rectal Exam: Deferred - Exam Exam: NORMAL INSPECTION - Extremities Exam Extremities Exam: Pedal Edema - Back Exam Back Exam: NORMAL INSPECTION - Neurological Exam Neurological Exam: Oriented x3 - Psychiatric Exam Psychiatric exam: Depressed - Skin Skin Exam: Dry Assessment and Plan (1) Degenerative joint disease Status: Acute (2) Hypertension Status: Acute (3) Obesity Status: Chronic (4) Peripheral vascular disease of lower extremity with ulceration Status: Acute
[2017-09-05] MEDS: Enoxaparin 100 mg Syringe SC SCH ×2 (09:07→22:26)
[2017-09-05] MEDS: Pantoprazole 40 mg EC Tab PO SCH (09:07)
--- NOTE | 2017-09-05 10:06 | CP.PCM.PN ---
Subjective - Date & Time of Evaluation Date of Evaluation: 09/05/17 Time of Evaluation: 10:06 - Subjective Subjective: Podiatry Progress note for Dr. Peres 52 year old male was seen at bedside for chronic non-healing wounds. Patient resting comfortably, NAD. Admits that he had a fever overnight. Denies any pain in his wounds unless if it is touched. Dressings remain clean/dry/intact to bilateral LE. Denies N/V/F/D/C/SOB/QUINONEZ/dizziness. Objective - Vital Signs/Intake and Output Vital Signs (last 24 hours): Temp Pulse Resp BP Pulse Ox 100.6 F H 104 H 20 119/77 100 09/05/17 07:30 09/05/17 07:30 09/05/17 07:30 09/05/17 07:30 09/05/17 07:30 Intake and Output: 09/05/17 09/05/17 06:59 18:59 Intake Total 350 Output Total 300 Balance 50 - Medications Medications: Current Medications Collagenase (Santyl) 0 gm TOP DAILY [facility] Last Admin: 09/04/17 09:07 Dose: Not Given Enoxaparin Sodium (Lovenox) 100 mg SC Q12 [facility] Last Admin: 09/05/17 09:07 Dose: 100 mg Ferrous Gluconate (Fergon) 324 mg PO TID [facility] Last Admin: 09/05/17 09:07 Dose: 324 mg Ciprofloxacin (Cipro 400mg/200ml Dsw) 400 mg in 200 mls @ 133 mls/hr IVPB Q12H [facility] PRN Reason: Protocol Last Admin: 09/04/17 22:33 Dose: 133 mls/hr Ibuprofen (Motrin Tab) 600 mg PO Q12H PRN PRN Reason: Pain, Mild (1-3) Last Admin: 09/05/17 09:07 Dose: 600 mg Lisinopril (Zestril) 5 mg PO DAILY [facility] Last Admin: 09/05/17 09:07 Dose: 5 mg Pantoprazole Sodium (Protonix Ec Tab) 40 mg PO DAILY [facility] Last Admin: 09/05/17 09:07 Dose: 40 mg - Labs Labs: 09/02/17 08:00 09/02/17 08:00 PT 12.0 SECONDS (9.7-12.2) 08/30/17 14:15 INR 1.1 08/30/17 14:15 - Constitutional Appears: Well, Non-toxic, No Acute Distress - Extremities Exam Additional comments: Lower extremity focused exam: Vasc: DP and PT pulses faintly palpable b/l. CFT > 3 seconds to all digits b/l. Skin temperature warm to warm from proximal to distal Derm: Full thickness ulceration noted to the anterior aspect of the left leg measure approximately 10 cm by 6 cm by 0.3 cm with a hypergranular base, with mild amount of purulence noted, moderate malodor noted. Full-thickness ulceration noted to the anterior aspect of right leg measuring approximately 2 cm by 2 cm with hypergranular base, no malodor noted. Periwound is macerated. Dark Erythema noted around wound sites. Neuro: Gross sensation diminished b/l Ortho: Tenderness on palpation to leg wounds b/l - Neurological Exam Neurological Exam: Alert, Awake, Oriented x3 - Psychiatric Exam Psychiatric exam: Normal Affect, Normal Mood Assessment and Plan - Assessment and Plan (Free Text) Assessment: 52 year old male with bilateral chronic non-healing wounds Plan: Patient seen and evaluated Discussed with attending, Dr. 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
--- NOTE | 2017-09-05 11:20 | CP.PCM.PN ---
Subjective - Date & Time of Evaluation Date of Evaluation: 09/05/17 Time of Evaluation: 09:00 - Subjective Subjective: febrile again Vanco d/c by Pharmacy will reorder Objective - Vital Signs/Intake and Output Vital Signs (last 24 hours): Temp Pulse Resp BP Pulse Ox 100.6 F H 104 H 20 119/77 100 09/05/17 07:30 09/05/17 07:30 09/05/17 07:30 09/05/17 07:30 09/05/17 07:30 Intake and Output: 09/05/17 09/05/17 06:59 18:59 Intake Total 350 Output Total 300 Balance 50 - Medications Medications: Current Medications Collagenase (Santyl) 0 gm TOP DAILY [facility] Last Admin: 09/04/17 09:07 Dose: Not Given Enoxaparin Sodium (Lovenox) 100 mg SC Q12 [facility] Last Admin: 09/05/17 09:07 Dose: 100 mg Ferrous Gluconate (Fergon) 324 mg PO TID [facility] Last Admin: 09/05/17 09:07 Dose: 324 mg Ciprofloxacin (Cipro 400mg/200ml Dsw) 400 mg in 200 mls @ 133 mls/hr IVPB Q12H [facility] PRN Reason: Protocol Last Admin: 09/04/17 22:33 Dose: 133 mls/hr Ibuprofen (Motrin Tab) 600 mg PO Q12H PRN PRN Reason: Pain, Mild (1-3) Last Admin: 09/05/17 09:07 Dose: 600 mg Lisinopril (Zestril) 5 mg PO DAILY [facility] Last Admin: 09/05/17 09:07 Dose: 5 mg Pantoprazole Sodium (Protonix Ec Tab) 40 mg PO DAILY [facility] Last Admin: 09/05/17 09:07 Dose: 40 mg - Labs Labs: 09/02/17 08:00 09/02/17 08:00 PT 12.0 SECONDS (9.7-12.2) 08/30/17 14:15 INR 1.1 08/30/17 14:15 - Constitutional Appears: Non-toxic, Chronically Ill - Head Exam Head Exam: NORMOCEPHALIC - Eye Exam Eye Exam: absent: Scleral icterus - ENT Exam ENT Exam: Mucous Membranes Dry - Neck Exam Neck Exam: absent: Lymphadenopathy - Respiratory Exam Respiratory Exam: Decreased Breath Sounds - Cardiovascular Exam Cardiovascular Exam: REGULAR RHYTHM - GI/Abdominal Exam GI & Abdominal Exam: Distended - Rectal Exam Rectal Exam: Deferred - Exam Exam: NORMAL INSPECTION Assessment and Plan (1) Diabetic ulcer of ankle Status: Acute (2) Anemia Status: Acute (3) Bilateral cellulitis of lower leg Status: Acute (4) Bilateral leg ulcer Status: Deleted (5) Cellulitis Status: Acute (6) Chronic cutaneous venous stasis ulcer Status: Acute (7) Congestive heart failure due to high blood pressure Status: Acute (8) Coronary artery disease Status: Acute (9) Hypertension Status: Acute (10) Sleep apnea Status: Acute (11) Obesity Status: Chronic
[2017-09-05] MEDS: Ciprofloxacin 400mg/200ml D5W 400 MG/200 ML BAG IVPB SCH ×2 (11:29→22:31)
--- NOTE | 2017-09-05 11:57 | CP.PCM.PN ---
<Christo Mackay - Last Filed: 09/05/17 18:58> Subjective - Date & Time of Evaluation Date of Evaluation: 09/05/17 Time of Evaluation: 11:53 - Subjective Subjective: Christo Mackay PGY1 Cardiology Note for Dr. Prince Patient was seen and examined at bedside. He complains of a fever this morning, but denies chills, n/v/d, cough, chest pain or shortness of breath. Patient was seen by Podiatry who changed his LE dressings. Questions regarding tomorrow's IVC filer procedure were answered. Objective - Vital Signs/Intake and Output Vital Signs (last 24 hours): Temp Pulse Resp BP Pulse Ox 100.6 F H 104 H 20 119/77 100 09/05/17 07:30 09/05/17 07:30 09/05/17 07:30 09/05/17 07:30 09/05/17 07:30 Intake and Output: 09/05/17 09/05/17 06:59 18:59 Intake Total 350 Output Total 300 Balance 50 - Medications Medications: Current Medications Collagenase (Santyl) 0 gm TOP DAILY [facility] Last Admin: 09/04/17 09:07 Dose: Not Given Enoxaparin Sodium (Lovenox) 100 mg SC Q12 [facility] Last Admin: 09/05/17 09:07 Dose: 100 mg Ferrous Gluconate (Fergon) 324 mg PO TID [facility] Last Admin: 09/05/17 09:07 Dose: 324 mg Ciprofloxacin (Cipro 400mg/200ml Dsw) 400 mg in 200 mls @ 133 mls/hr IVPB Q12H [facility] PRN Reason: Protocol Last Admin: 09/05/17 11:29 Dose: 133 mls/hr Vancomycin/Sodium Chloride (Vancomycin 1 Gm/Ns 200 Ml) 1 gm in 200 mls @ 166.6 mls/hr IVPB Q12H [facility] PRN Reason: Protocol Stop: 09/10/17 12:01 Ibuprofen (Motrin Tab) 600 mg PO Q12H PRN PRN Reason: Pain, Mild (1-3) Last Admin: 09/05/17 09:07 Dose: 600 mg Lisinopril (Zestril) 5 mg PO DAILY [facility] Last Admin: 09/05/17 09:07 Dose: 5 mg Pantoprazole Sodium (Protonix Ec Tab) 40 mg PO DAILY [facility] Last Admin: 09/05/17 09:07 Dose: 40 mg - Labs Labs: 09/02/17 08:00 09/02/17 08:00 PT 12.0 SECONDS (9.7-12.2) 08/30/17 14:15 INR 1.1 08/30/17 14:15 - Additional Findings Additional findings: - Constitutional Appears: Well, Non-toxic, No Acute Distress - Head Exam Head Exam: NORMAL INSPECTION - Eye Exam Eye Exam: EOMI, Normal appearance - ENT Exam ENT Exam: Mucous Membranes Moist - Neck Exam Neck Exam: Full ROM - Respiratory Exam Respiratory Exam: Clear to Ausculation Bilateral, NORMAL BREATHING PATTERN. absent: Rales, Rhonchi, Wheezes - Cardiovascular Exam Cardiovascular Exam: RRR, +S1, +S2 - GI/Abdominal Exam GI & Abdominal Exam: Soft, Normal Bowel Sounds. 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 Patient is agreeable to thrombolysis, which is planned for tomorrow. Plan: 1) Bilateral non-healing ulcers likely secondary to chronic partial thrombosis of the lower extremity venous circulation - Suboptimal opacification of the infrarenal IVC, pelvic and lower extremity veins markedly limiting evaluation. - Vital signs and labs were reviewed - EKOS thrombolysis with localized tPa administration tentatively planned for tomorrow - wound culture shows strep viridans from left leg; on isolation and contact precautions - fever this AM; motrin given, f/u vitals - on cipro and Vanc for abx - on santyl - check morning labs tomorrow - will keep NPO past midnight 2) Lower extremity edema - Weight checks daily - Echo shows EF 55% 3) Prophlyaxis - ptx and lovenox Case reviewed and discussed with Dr. Prince <Jose Prince - Last Filed: 09/06/17 09:54> Objective - Vital Signs/Intake and Output Vital Signs (last 24 hours): Temp Pulse Resp BP Pulse Ox 98.9 F 98 H 20 105/69 95 09/06/17 08:08 09/06/17 08:08 09/06/17 08:08 09/06/17 08:08 09/06/17 08:08 Intake and Output: 09/06/17 09/06/17 06:59 18:59 Output Total 100 Balance -100 - Medications Medications: Current Medications Collagenase (Santyl) 0 gm TOP DAILY [facility] Last Admin: 09/05/17 12:44 Dose: Not Given Enoxaparin Sodium (Lovenox) 100 mg SC Q12 [facility] Last Admin: 09/05/17 22:26 Dose: 100 mg Ferrous Gluconate (Fergon) 324 mg PO TID [facility] Last Admin: 09/05/17 17:46 Dose: 324 mg Ciprofloxacin (Cipro 400mg/200ml Dsw) 400 mg in 200 mls @ 133 mls/hr IVPB Q12H [facility] PRN Reason: Protocol Last Admin: 09/05/17 22:31 Dose: 133 mls/hr Vancomycin/Sodium Chloride (Vancomycin 1 Gm/Ns 200 Ml) 1 gm in 200 mls @ 166.6 mls/hr IVPB Q12H [facility] PRN Reason: Protocol Stop: 09/10/17 12:01 Last Admin: 09/06/17 00:11 Dose: 166.6 mls/hr Ibuprofen (Motrin Tab) 600 mg PO Q12H PRN PRN Reason: Pain, Mild (1-3) Last Admin: 09/05/17 09:07 Dose: 600 mg Lisinopril (Zestril) 5 mg PO DAILY [facility] Last Admin: 09/05/17 09:07 Dose: 5 mg Pantoprazole Sodium (Protonix Ec Tab) 40 mg PO DAILY [facility] Last Admin: 09/05/17 09:07 Dose: 40 mg - Labs Labs: 09/06/17 08:20 09/06/17 08:20 PT 14.5 SECONDS (9.7-12.2) H 09/05/17 13:46 INR 1.3 09/05/17 13:46 APTT 37 SECONDS (21-34) H 09/05/17 13:46 Assessment and Plan (1) IVC thrombosis Status: Acute (2) Hypertension Status: Acute (3) Infected stasis ulcer of left lower extremity Status: Acute (4) MRSA (methicillin resistant Staphylococcus aureus) infection Status: Acute (5) Ulcerated varicose veins of leg Status: Acute Attending/Attestation - Attestation I have personally seen and examined this patient.: Yes I have fully participated in the care of the patient.: Yes I have reviewed all pertinent clinical information, including history, physical exam and plan: Yes
[2017-09-05] MEDS: Collagenase 250 Units/gm Ointment(30 gm) TOP SCH (12:44)
[2017-09-05 14:07] LABS: INR 1.3; PROTHROMBIN TIME 14.5 SECONDS (9.7-12.2)
[2017-09-05] MEDS: Vancomycin 1 gm/NS 200 ml 1 GM/200 ML BAG IVPB SCH (14:10)
--- NOTE | 2017-09-05 22:43 | CP.PCM.PN ---
Subjective - Date & Time of Evaluation Date of Evaluation: 09/05/17 Time of Evaluation: 13:25 - Subjective Subjective: Patient spiked a temp last night. He was evaluated by Dr Yang. Scheduled for IVC filter replacement in AM, Objective - Vital Signs/Intake and Output Vital Signs (last 24 hours): Temp Pulse Resp BP Pulse Ox 97.9 F 83 20 118/64 96 09/05/17 15:44 09/05/17 15:44 09/05/17 15:44 09/05/17 15:44 09/05/17 15:44 - Medications Medications: Current Medications Collagenase (Santyl) 0 gm TOP DAILY [facility] Last Admin: 09/05/17 12:44 Dose: Not Given Enoxaparin Sodium (Lovenox) 100 mg SC Q12 [facility] Last Admin: 09/05/17 22:26 Dose: 100 mg Ferrous Gluconate (Fergon) 324 mg PO TID [facility] Last Admin: 09/05/17 17:46 Dose: 324 mg Ciprofloxacin (Cipro 400mg/200ml Dsw) 400 mg in 200 mls @ 133 mls/hr IVPB Q12H [facility] PRN Reason: Protocol Last Admin: 09/05/17 22:31 Dose: 133 mls/hr Vancomycin/Sodium Chloride (Vancomycin 1 Gm/Ns 200 Ml) 1 gm in 200 mls @ 166.6 mls/hr IVPB Q12H [facility] PRN Reason: Protocol Stop: 09/10/17 12:01 Last Admin: 09/05/17 14:10 Dose: 166.6 mls/hr Ibuprofen (Motrin Tab) 600 mg PO Q12H PRN PRN Reason: Pain, Mild (1-3) Last Admin: 09/05/17 09:07 Dose: 600 mg Lisinopril (Zestril) 5 mg PO DAILY [facility] Last Admin: 09/05/17 09:07 Dose: 5 mg Pantoprazole Sodium (Protonix Ec Tab) 40 mg PO DAILY [facility] Last Admin: 09/05/17 09:07 Dose: 40 mg - Labs Labs: 09/02/17 08:00 09/02/17 08:00 PT 14.5 SECONDS (9.7-12.2) H 09/05/17 13:46 INR 1.3 09/05/17 13:46 APTT 37 SECONDS (21-34) H 09/05/17 13:46 - Constitutional Appears: No Acute Distress - Head Exam Head Exam: NORMOCEPHALIC - Eye Exam Eye Exam: Normal appearance Pupil Exam: NORMAL ACCOMODATION - ENT Exam ENT Exam: Normal Exam - Neck Exam Neck Exam: Normal Inspection - Respiratory Exam Respiratory Exam: NORMAL BREATHING PATTERN - Cardiovascular Exam Cardiovascular Exam: REGULAR RHYTHM - GI/Abdominal Exam GI & Abdominal Exam: Hyperactive Bowel Sounds - Rectal Exam Rectal Exam: Deferred - Exam Exam: NORMAL INSPECTION - Back Exam Back Exam: NORMAL INSPECTION - Neurological Exam Neurological Exam: Oriented x3 - Psychiatric Exam Psychiatric exam: Depressed - Skin Skin Exam: Dry Assessment and Plan (1) Degenerative joint disease Status: Acute (2) Hypertension Status: Acute (3) Obesity Status: Chronic (4) Peripheral vascular disease of lower extremity with ulceration Status: Acute
[2017-09-06] MEDS: Vancomycin 1 gm/NS 200 ml 1 GM/200 ML BAG IVPB SCH ×3 (00:11→23:49)
[2017-09-06 08:31] LABS: BASO # 0.1 K/uL (0.0-0.2); BASO % 0.5 % (0.0-2.0); EOS % 0.4 % (0.0-4.0); HEMOGLOBIN 11.5 g/dL (12.0-18.0); LYMPH # 0.8 K/uL (1.0-4.3); LYMPH % 6.9 % (20.0-40.0); MEAN CORPUSCULAR HEMOGLOBIN 30.1 pg (27.0-31.0); MEAN PLATELET VOLUME 7.5 fL (7.2-11.7); MONO # 1.3 K/uL (0.0-0.8); NEUT # 9.8 K/uL (1.8-7.0); NEUT % 81.2 % (50.0-75.0); NRBC % 0.1 % (0.0-2.0); PLATELET COUNT 388 K/uL (130-400); RBC 3.83 Mil/uL (4.40-5.90); RED CELL DISTRIBUTION WIDTH 14.3 % (11.5-14.5); WHITE BLOOD COUNT 12.1 K/uL (4.8-10.8)
[2017-09-06 08:55] LABS: ALB/GLOB RATIO 0.8 (1.0-2.1); ALBUMIN 3.4 g/dL (3.5-5.0); ALT/SGPT 9 U/L (21-72); AST/SGOT 12 U/L (17-59); BLOOD UREA NITROGEN 22 mg/dL (9-20); GFR AFRICAN-AMERICAN > 60; GFR NON-AFRICAN AMERICAN > 60
[2017-09-06 09:57] LABS: BASOPHIL 1 % (0-2); LYMPHOCYTE 8 % (20-40); MONOCYTE 12 % (0-10); NEUTROPHIL 79 % (50-75); PLATELET ESTIMATE NORMAL (NORMAL); TOTAL CELLS COUNTED 100
[2017-09-06] MEDS: Pantoprazole 40 mg EC Tab PO SCH (10:11)
[2017-09-06] MEDS: Collagenase 250 Units/gm Ointment(30 gm) TOP SCH (10:12)
[2017-09-06] MEDS: Enoxaparin 100 mg Syringe SC SCH ×2 (10:12→21:44)
[2017-09-06] MEDS: Ciprofloxacin 400mg/200ml D5W 400 MG/200 ML BAG IVPB SCH (12:01)
--- NOTE | 2017-09-06 14:23 | CP.PCM.PN ---
Subjective - Date & Time of Evaluation Date of Evaluation: 09/06/17 Time of Evaluation: 14:23 - Subjective Subjective: Podiatry Progress note for Dr. Peres 52 year old male was seen at bedside for chronic non-healing wounds. Patient resting comfortably, NAD. Dressings remain clean/dry/intact to bilateral LE. Denies N/V/F/D/C/SOB/QUINONEZ/dizziness. Objective - Vital Signs/Intake and Output Vital Signs (last 24 hours): Temp Pulse Resp BP Pulse Ox 98.9 F 98 H 20 105/69 95 09/06/17 08:08 09/06/17 08:08 09/06/17 08:08 09/06/17 08:08 09/06/17 08:08 Intake and Output: 09/06/17 09/06/17 06:59 18:59 Output Total 100 Balance -100 - Medications Medications: Current Medications Collagenase (Santyl) 0 gm TOP DAILY [facility] Last Admin: 09/06/17 10:12 Dose: Not Given Enoxaparin Sodium (Lovenox) 100 mg SC Q12 [facility] Last Admin: 09/06/17 10:12 Dose: Not Given Ferrous Gluconate (Fergon) 324 mg PO TID [facility] Last Admin: 09/06/17 10:11 Dose: 324 mg Vancomycin/Sodium Chloride (Vancomycin 1 Gm/Ns 200 Ml) 1 gm in 200 mls @ 166.6 mls/hr IVPB Q12H [facility] PRN Reason: Protocol Stop: 09/10/17 12:01 Last Admin: 09/06/17 12:01 Dose: 166.6 mls/hr Ibuprofen (Motrin Tab) 600 mg PO Q12H PRN PRN Reason: Pain, Mild (1-3) Last Admin: 09/05/17 09:07 Dose: 600 mg Lisinopril (Zestril) 5 mg PO DAILY [facility] Last Admin: 09/06/17 10:11 Dose: 5 mg Pantoprazole Sodium (Protonix Ec Tab) 40 mg PO DAILY [facility] Last Admin: 09/06/17 10:11 Dose: 40 mg - Labs Labs: 09/06/17 08:20 09/06/17 08:20 PT 14.5 SECONDS (9.7-12.2) H 09/05/17 13:46 INR 1.3 09/05/17 13:46 APTT 37 SECONDS (21-34) H 09/05/17 13:46 - Constitutional Appears: Well, Non-toxic, No Acute Distress - Extremities Exam Additional comments: Lower extremity focused exam: Vasc: DP and PT pulses faintly palpable b/l. CFT > 3 seconds to all digits b/l. Skin temperature warm to warm from proximal to distal Derm: Full thickness ulceration noted to the anterior aspect of the left leg measure approximately 10 cm by 6 cm by 0.3 cm with a hypergranular base, with mild amount of purulence noted, moderate malodor noted. Full-thickness ulceration noted to the anterior aspect of right leg measuring approximately 2 cm by 2 cm with hypergranular base, no malodor noted. Periwound is macerated. Dark Erythema noted around wound sites. Neuro: Gross sensation diminished b/l Ortho: Tenderness on palpation to leg wounds b/l - Neurological Exam Neurological Exam: Alert, Awake, Oriented x3 - Psychiatric Exam Psychiatric exam: Normal Affect, Normal Mood Assessment and Plan - Assessment and Plan (Free Text) Assessment: 52 year old male with bilateral chronic non-healing wounds Plan: Patient seen and evaluated Discussed with attending, Dr. 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
--- NOTE | 2017-09-06 15:23 | CP.PCM.PN ---
Subjective - Date & Time of Evaluation Date of Evaluation: 09/06/17 Time of Evaluation: 10:00 - Subjective Subjective: t max lower iv rx renewed wounds same Objective - Vital Signs/Intake and Output Vital Signs (last 24 hours): Temp Pulse Resp BP Pulse Ox 98.9 F 98 H 20 105/69 95 09/06/17 08:08 09/06/17 08:08 09/06/17 08:08 09/06/17 08:08 09/06/17 08:08 Intake and Output: 09/06/17 09/06/17 06:59 18:59 Output Total 100 Balance -100 - Medications Medications: Current Medications Collagenase (Santyl) 0 gm TOP DAILY [facility] Last Admin: 09/06/17 10:12 Dose: Not Given Enoxaparin Sodium (Lovenox) 100 mg SC Q12 [facility] Last Admin: 09/06/17 10:12 Dose: Not Given Ferrous Gluconate (Fergon) 324 mg PO TID [facility] Last Admin: 09/06/17 14:51 Dose: 324 mg Vancomycin/Sodium Chloride (Vancomycin 1 Gm/Ns 200 Ml) 1 gm in 200 mls @ 166.6 mls/hr IVPB Q12H [facility] PRN Reason: Protocol Stop: 09/10/17 12:01 Last Admin: 09/06/17 12:01 Dose: 166.6 mls/hr Ibuprofen (Motrin Tab) 600 mg PO Q12H PRN PRN Reason: Pain, Mild (1-3) Last Admin: 09/05/17 09:07 Dose: 600 mg Lisinopril (Zestril) 5 mg PO DAILY [facility] Last Admin: 09/06/17 10:11 Dose: 5 mg Pantoprazole Sodium (Protonix Ec Tab) 40 mg PO DAILY [facility] Last Admin: 09/06/17 10:11 Dose: 40 mg - Labs Labs: 09/06/17 08:20 09/06/17 08:20 PT 14.5 SECONDS (9.7-12.2) H 09/05/17 13:46 INR 1.3 09/05/17 13:46 APTT 37 SECONDS (21-34) H 09/05/17 13:46 - Constitutional Appears: Non-toxic, Chronically Ill - Head Exam Head Exam: NORMOCEPHALIC - Eye Exam Eye Exam: PERRL - ENT Exam ENT Exam: Mucous Membranes Dry - Neck Exam Neck Exam: absent: Lymphadenopathy - Respiratory Exam Respiratory Exam: Decreased Breath Sounds - Cardiovascular Exam Cardiovascular Exam: REGULAR RHYTHM - Rectal Exam Rectal Exam: Deferred - Exam Exam: NORMAL INSPECTION - Extremities Exam Extremities Exam: Pedal Edema. absent: Tenderness - Back Exam Back Exam: absent: CVA tenderness (L), CVA tenderness (R) - Neurological Exam Neurological Exam: Alert, Awake, Oriented x3 Assessment and Plan (1) Diabetic ulcer of ankle Status: Acute (2) Anemia Status: Acute (3) Bilateral cellulitis of lower leg Status: Acute (4) Bilateral leg ulcer Status: Deleted (5) Cellulitis Status: Acute (6) Chronic cutaneous venous stasis ulcer Status: Acute (7) Congestive heart failure due to high blood pressure Status: Acute (8) Coronary artery disease Status: Acute (9) Hypertension Status: Acute (10) Sleep apnea Status: Acute (11) Obesity Status: Chronic
--- NOTE | 2017-09-06 15:34 | CP.PCM.PN ---
Subjective - Date & Time of Evaluation Date of Evaluation: 09/06/17 Time of Evaluation: 15:33 - Subjective Subjective: plan for venogram in am npo p mn ulcers stable Objective - Vital Signs/Intake and Output Vital Signs (last 24 hours): Temp Pulse Resp BP Pulse Ox 98.9 F 98 H 20 105/69 95 09/06/17 08:08 09/06/17 08:08 09/06/17 08:08 09/06/17 08:08 09/06/17 08:08 Intake and Output: 09/06/17 09/06/17 06:59 18:59 Output Total 100 Balance -100 - Medications Medications: Current Medications Collagenase (Santyl) 0 gm TOP DAILY [facility] Last Admin: 09/06/17 10:12 Dose: Not Given Enoxaparin Sodium (Lovenox) 100 mg SC Q12 [facility] Last Admin: 09/06/17 10:12 Dose: Not Given Ferrous Gluconate (Fergon) 324 mg PO TID [facility] Last Admin: 09/06/17 14:51 Dose: 324 mg Vancomycin/Sodium Chloride (Vancomycin 1 Gm/Ns 200 Ml) 1 gm in 200 mls @ 166.6 mls/hr IVPB Q12H [facility] PRN Reason: Protocol Stop: 09/10/17 12:01 Last Admin: 09/06/17 12:01 Dose: 166.6 mls/hr Ibuprofen (Motrin Tab) 600 mg PO Q12H PRN PRN Reason: Pain, Mild (1-3) Last Admin: 09/05/17 09:07 Dose: 600 mg Lisinopril (Zestril) 5 mg PO DAILY [facility] Last Admin: 09/06/17 10:11 Dose: 5 mg Pantoprazole Sodium (Protonix Ec Tab) 40 mg PO DAILY [facility] Last Admin: 09/06/17 10:11 Dose: 40 mg - Labs Labs: 09/06/17 08:20 09/06/17 08:20 PT 14.5 SECONDS (9.7-12.2) H 09/05/17 13:46 INR 1.3 09/05/17 13:46 APTT 37 SECONDS (21-34) H 09/05/17 13:46 - Constitutional Appears: Well - Head Exam Head Exam: ATRAUMATIC, NORMAL INSPECTION, NORMOCEPHALIC - Eye Exam Eye Exam: EOMI, Normal appearance, PERRL Pupil Exam: NORMAL ACCOMODATION, PERRL - ENT Exam ENT Exam: Mucous Membranes Moist, Normal Exam - Neck Exam Neck Exam: Full ROM, Normal Inspection. absent: Lymphadenopathy - Respiratory Exam Respiratory Exam: Clear to Ausculation Bilateral, NORMAL BREATHING PATTERN - Cardiovascular Exam Cardiovascular Exam: REGULAR RHYTHM, +S1, +S2. absent: Murmur - GI/Abdominal Exam GI & Abdominal Exam: Soft, Normal Bowel Sounds. absent: Tenderness - Extremities Exam Extremities Exam: Full ROM, Normal Capillary Refill, Normal Inspection. absent : Joint Swelling, Pedal Edema Additional comments: bilateral venous stasis ulcers - Back Exam Back Exam: NORMAL INSPECTION - Neurological Exam Neurological Exam: Alert, Awake, CN II-XII Intact, Normal Gait, Oriented x3 - Psychiatric Exam Psychiatric exam: Normal Affect, Normal Mood - Skin Skin Exam: Dry, Intact, Normal Color, Warm Assessment and Plan (1) IVC thrombosis Assessment & Plan: plan for venogram at 8am tomorrow NPO p MN Status: Acute (2) Hypertension Status: Acute (3) Infected stasis ulcer of left lower extremity Status: Acute (4) MRSA (methicillin resistant Staphylococcus aureus) infection Status: Acute (5) Ulcerated varicose veins of leg Status: Acute
--- NOTE | 2017-09-06 22:28 | CP.PCM.PN ---
Subjective - Date & Time of Evaluation Date of Evaluation: 09/06/17 Time of Evaluation: 13:15 - Subjective Subjective: Patient complains of pain in both legs. Venogam rescheduled for AM. He has been afebrile today. Objective - Vital Signs/Intake and Output Vital Signs (last 24 hours): Temp Pulse Resp BP Pulse Ox 98.8 F 96 H 20 110/68 97 09/06/17 16:00 09/06/17 16:00 09/06/17 16:00 09/06/17 16:00 09/06/17 16:00 Intake and Output: 09/06/17 09/07/17 18:59 06:59 Intake Total 700 Output Total 500 Balance 200 - Medications Medications: Current Medications Collagenase (Santyl) 0 gm TOP DAILY [facility] Last Admin: 09/06/17 10:12 Dose: Not Given Enoxaparin Sodium (Lovenox) 100 mg SC Q12 [facility] Last Admin: 09/06/17 21:44 Dose: 100 mg Ferrous Gluconate (Fergon) 324 mg PO TID [facility] Last Admin: 09/06/17 17:28 Dose: 324 mg Vancomycin/Sodium Chloride (Vancomycin 1 Gm/Ns 200 Ml) 1 gm in 200 mls @ 166.6 mls/hr IVPB Q12H [facility] PRN Reason: Protocol Stop: 09/10/17 12:01 Last Admin: 09/06/17 12:01 Dose: 166.6 mls/hr Ibuprofen (Motrin Tab) 600 mg PO Q12H PRN PRN Reason: Pain, Mild (1-3) Last Admin: 09/06/17 17:28 Dose: 600 mg Lisinopril (Zestril) 5 mg PO DAILY [facility] Last Admin: 09/06/17 10:11 Dose: 5 mg Pantoprazole Sodium (Protonix Ec Tab) 40 mg PO DAILY [facility] Last Admin: 09/06/17 10:11 Dose: 40 mg - Labs Labs: 09/06/17 08:20 09/06/17 08:20 PT 14.5 SECONDS (9.7-12.2) H 09/05/17 13:46 INR 1.3 09/05/17 13:46 APTT 37 SECONDS (21-34) H 09/05/17 13:46 - Constitutional Appears: No Acute Distress - Head Exam Head Exam: NORMOCEPHALIC - Eye Exam Eye Exam: Normal appearance Pupil Exam: NORMAL ACCOMODATION - ENT Exam ENT Exam: Normal Exam - Neck Exam Neck Exam: Normal Inspection - Respiratory Exam Respiratory Exam: Decreased Breath Sounds - Cardiovascular Exam Cardiovascular Exam: REGULAR RHYTHM - GI/Abdominal Exam GI & Abdominal Exam: Normal Bowel Sounds - Rectal Exam Rectal Exam: Deferred - Exam Exam: NORMAL INSPECTION - Extremities Exam Extremities Exam: Tenderness - Neurological Exam Neurological Exam: Oriented x3 - Psychiatric Exam Psychiatric exam: Depressed - Skin Skin Exam: Dry Assessment and Plan (1) Degenerative joint disease Status: Acute (2) Hypertension Status: Acute (3) Obesity Status: Chronic (4) Peripheral vascular disease of lower extremity with ulceration Status: Acute
[2017-09-07] MEDS ORDERED: Midazolam 2 MG/2 ML VIAL ONE ×3 (08:34→09:28)
[2017-09-07] MEDS ORDERED: Iodixanol 320 MG/ML 200 ML BOTTLE IV ONE (08:35)
[2017-09-07] MEDS ORDERED: Lidocaine Hydrochloride 15 ML INJ ONE (09:32)
[2017-09-07] MEDS: Pantoprazole 40 mg EC Tab PO SCH (10:38)
[2017-09-07] MEDS: Enoxaparin 100 mg Syringe SC SCH (10:38)
[2017-09-07] MEDS: Collagenase 250 Units/gm Ointment(30 gm) TOP SCH (10:38)
[2017-09-07] MEDS ORDERED: Heparin25000 units/250ml 1/2NS 25,000 UNITS/250 ML BAG IV ONE ×2 (10:59→11:16)
[2017-09-07] MEDS ORDERED: Heparin25000 units/250ml 1/2NS 25,000 UNITS/250 ML BAG IV STA (11:16)
[2017-09-07] MEDS ORDERED: Iodixanol 320 MG/ML 100 ML BOTTLE IV ONE (12:17)
--- NOTE | 2017-09-07 12:41 | CP.PCM.PN ---
Subjective - Date & Time of Evaluation Date of Evaluation: 09/07/17 Time of Evaluation: 12:39 - Subjective Subjective: catheter replaced as it had backed out at request relayed from Dr Prince unable to flush new ly placed catherter and replaces eith availble ekos catheter Objective - Vital Signs/Intake and Output Vital Signs (last 24 hours): Temp Pulse Resp BP Pulse Ox 98.0 F 83 20 100/63 95 09/07/17 00:01 09/07/17 00:01 09/07/17 00:01 09/07/17 00:01 09/07/17 00:01 - Medications Medications: Current Medications Collagenase (Santyl) 0 gm TOP DAILY [facility] Last Admin: 09/07/17 10:38 Dose: Not Given Ferrous Gluconate (Fergon) 324 mg PO TID [facility] Last Admin: 09/07/17 10:38 Dose: Not Given Vancomycin/Sodium Chloride (Vancomycin 1 Gm/Ns 200 Ml) 1 gm in 200 mls @ 166.6 mls/hr IVPB Q12H [facility] PRN Reason: Protocol Stop: 09/10/17 12:01 Last Admin: 09/06/17 23:49 Dose: 166.6 mls/hr Alteplase, Recombinant 5 mg/ (Sodium Chloride) 250 mls @ 25 mls/hr IV ONCE ONE Stop: 09/07/17 21:14 Heparin Sodium/Sodium Chloride (Heparin 82604 Units/250ml 1/2 Normal Saline) 25 ,000 units in 250 mls @ 5 mls/hr IV STAT STA PRN Reason: 500 UNIT/HR Stop: 09/09/17 13:15 Ibuprofen (Motrin Tab) 600 mg PO Q12H PRN PRN Reason: Pain, Mild (1-3) Last Admin: 09/06/17 17:28 Dose: 600 mg Lisinopril (Zestril) 5 mg PO DAILY [facility] Last Admin: 09/07/17 10:39 Dose: Not Given Pantoprazole Sodium (Protonix Ec Tab) 40 mg PO DAILY [facility] Last Admin: 09/07/17 10:38 Dose: Not Given - Labs Labs: 09/06/17 08:20 09/06/17 08:20 PT 14.5 SECONDS (9.7-12.2) H 09/05/17 13:46 INR 1.3 09/05/17 13:46 APTT 37 SECONDS (21-34) H 09/05/17 13:46
--- NOTE | 2017-09-07 16:44 | CP.PCM.PN ---
Subjective - Date & Time of Evaluation Date of Evaluation: 09/07/17 Time of Evaluation: 16:42 - Subjective Subjective: s/p venogram with aspiration thrombectomy and venoplasty and placement of EKOS catheter with tpa infusion Objective - Vital Signs/Intake and Output Vital Signs (last 24 hours): Temp Pulse Resp BP Pulse Ox 98.0 F 83 20 100/63 95 09/07/17 00:01 09/07/17 00:01 09/07/17 00:01 09/07/17 00:01 09/07/17 00:01 Intake and Output: 09/07/17 09/07/17 06:59 18:59 Intake Total 705 Output Total 600 Balance 105 - Medications Medications: Current Medications Collagenase (Santyl) 0 gm TOP DAILY [facility] Last Admin: 09/07/17 10:38 Dose: Not Given Ferrous Gluconate (Fergon) 324 mg PO TID [facility] Last Admin: 09/07/17 10:38 Dose: Not Given Vancomycin/Sodium Chloride (Vancomycin 1 Gm/Ns 200 Ml) 1 gm in 200 mls @ 166.6 mls/hr IVPB Q12H [facility]OM[facility] PRN Reason: Protocol Stop: 09/10/17 12:01 Last Admin: 09/06/17 23:49 Dose: 166.6 mls/hr Alteplase, Recombinant 5 mg/ (Sodium Chloride) 250 mls @ 25 mls/hr IV ONCE ONE Stop: 09/07/17 21:14 Heparin Sodium/Sodium Chloride (Heparin 59342 Units/250ml 1/2 Normal Saline) 25 ,000 units in 250 mls @ 5 mls/hr IV STAT STA PRN Reason: 500 UNIT/HR Stop: 09/09/17 13:15 Ibuprofen (Motrin Tab) 600 mg PO Q12H PRN PRN Reason: Pain, Mild (1-3) Last Admin: 09/06/17 17:28 Dose: 600 mg Lisinopril (Zestril) 5 mg PO DAILY [facility] Last Admin: 09/07/17 10:39 Dose: Not Given Pantoprazole Sodium (Protonix Ec Tab) 40 mg PO DAILY [facility] Last Admin: 09/07/17 10:38 Dose: Not Given - Labs Labs: 09/06/17 08:20 09/06/17 08:20 PT 14.5 SECONDS (9.7-12.2) H 09/05/17 13:46 INR 1.3 09/05/17 13:46 APTT 37 SECONDS (21-34) H 09/05/17 13:46 - Constitutional Appears: Well - Head Exam Head Exam: ATRAUMATIC, NORMAL INSPECTION, NORMOCEPHALIC - Eye Exam Eye Exam: EOMI, Normal appearance, PERRL Pupil Exam: NORMAL ACCOMODATION, PERRL - ENT Exam ENT Exam: Mucous Membranes Moist, Normal Exam - Neck Exam Neck Exam: Full ROM, Normal Inspection. absent: Lymphadenopathy - Respiratory Exam Respiratory Exam: Clear to Ausculation Bilateral, NORMAL BREATHING PATTERN - Cardiovascular Exam Cardiovascular Exam: REGULAR RHYTHM, +S1, +S2. absent: Murmur - GI/Abdominal Exam GI & Abdominal Exam: Soft, Normal Bowel Sounds. absent: Tenderness - Extremities Exam Extremities Exam: Full ROM, Normal Capillary Refill, Normal Inspection. absent : Joint Swelling, Pedal Edema - Back Exam Back Exam: NORMAL INSPECTION - Neurological Exam Neurological Exam: Alert, Awake, CN II-XII Intact, Normal Gait, Oriented x3 - Psychiatric Exam Psychiatric exam: Normal Affect, Normal Mood - Skin Skin Exam: Dry, Intact, Normal Color, Warm Assessment and Plan (1) IVC thrombosis Assessment & Plan: s/p venoplasty of IVC thrombosis and aspiration thrombectomy EKOS placement and re-placement with ( help appreciated ) plan for possible stenting in am cont tpa infusion and heparin x 24 hours Status: Acute (2) Hypertension Status: Acute (3) Infected stasis ulcer of left lower extremity Status: Acute (4) MRSA (methicillin resistant Staphylococcus aureus) infection Status: Acute (5) Ulcerated varicose veins of leg Status: Acute
[2017-09-07] MEDS ORDERED: Heparin25000 units/250ml 1/2NS 25,000 UNITS/250 ML BAG IV PRN ×2 (16:46→16:48)
[2017-09-07] MEDS ORDERED: Sodium Chloride 0.9% 1,000 ML IV SCH ×2 (17:00)
--- NOTE | 2017-09-07 17:00 | CP.PCM.CON ---
History of Present Illness - History of Present Illness History of Present Illness: 52yo M. PMHx HTN, VICENTE, HLD, pulm HTN, obesity, chronic DVT of bilateral lower extremitites, IVC filter placement (2009). p/w infected heel ulcers, was found to have a completely thrombosed IVC Filter, that had EKOS catheter placed through it for break up of the clot. Patient admitted to ICU for monitoring with continuous tPA administration via EKOS catheter. Review of Systems - Review of Systems All systems: reviewed and no additional remarkable complaints except (no complaints) Past Patient History - Infectious Disease Hx of Infectious Diseases: None, C.diff - Tetanus Immunizations Tetanus Immunization: Up to Date - Past Medical History & Family History Past Medical History?: Yes - Past Social History Smoking Status: Former Smoker Alcohol: None Drugs: Denies Domestic Violence: Negative - CARDIAC Hx Cardiac Disorders: Yes Hx Hypercholesterolemia: Yes Hx Hypertension: Yes Hx Peripheral Edema: Yes - PULMONARY Hx Respiratory Disorders: Yes Hx Asthma: Yes Hx Bronchitis: Yes Hx Pneumonia: Yes Hx Respiratory Tract Infection: Yes Hx Sleep Apnea: Yes - NEUROLOGICAL Hx Neurological Disorder: No - HEENT Hx HEENT Problems: No - RENAL Hx Chronic Kidney Disease: Yes Hx Kidney Stones: Yes - ENDOCRINE/METABOLIC Hx Endocrine Disorders: No - HEMATOLOGICAL/ONCOLOGICAL Hx Blood Disorders: Yes Hx Anemia: Yes Hx Blood Transfusions: Yes - INTEGUMENTARY Hx Dermatological Problems: No Hx Cellulitis: Yes - MUSCULOSKELETAL/RHEUMATOLOGICAL Hx Musculoskeletal Disorders: No Hx Falls: No - GASTROINTESTINAL Hx Gastrointestinal Disorders: Yes Hx Gall Bladder Disease: Yes Hx Gastritis: Yes - GENITOURINARY/GYNECOLOGICAL Hx Genitourinary Disorders: No - PSYCHIATRIC Hx Psychophysiologic Disorder: No Hx Substance Use: No - SURGICAL HISTORY Hx Surgeries: Yes Hx Arthroscopy: Yes Hx Herniorrhaphy: Yes (2010) Hx Vascular Surgery: Yes Other/Comment: Vena Cava Filter on R groin for DVT L Leg in 2009. Mar 2015 R leg clot. 2009 L leg clot - ANESTHESIA Hx Anesthesia: Yes Hx Anesthesia Reactions: No Hx Malignant Hyperthermia: No Meds Allergies/Adverse Reactions: Allergies Allergy/AdvReac Type Severity Reaction Status Date / Time Penicillins Allergy Severe ANAPHYLAXIS Verified 08/28/17 13:58 - Medications Medications: Current Medications Collagenase (Santyl) 0 gm TOP DAILY [facility] Last Admin: 09/07/17 10:38 Dose: Not Given Ferrous Gluconate (Fergon) 324 mg PO TID [facility] Last Admin: 09/07/17 10:38 Dose: Not Given Vancomycin/Sodium Chloride (Vancomycin 1 Gm/Ns 200 Ml) 1 gm in 200 mls @ 166.6 mls/hr IVPB Q12H [facility] PRN Reason: Protocol Stop: 09/10/17 12:01 Last Admin: 09/06/17 23:49 Dose: 166.6 mls/hr Heparin Sodium/Sodium Chloride (Heparin 26705 Units/250ml 1/2 Normal Saline) 25 ,000 units in 250 mls @ 5 mls/hr IV STAT STA PRN Reason: 500 UNIT/HR Stop: 09/09/17 13:15 Alteplase, Recombinant 5 mg/ (Sodium Chloride) 250 mls @ 25 mls/hr IV ONCE ONE Stop: 09/07/17 21:14 Heparin Sodium/Sodium Chloride (Heparin 90331 Units/250ml 1/2 Normal Saline) 25 ,000 units in 250 mls @ 5 mls/hr IV .Q24H PRN PRN Reason: PROTOCOL Heparin Sodium/Sodium Chloride (Heparin 78316 Units/250ml 1/2 Normal Saline) 25 ,000 units in 250 mls @ 5 mls/hr IV .Q24H PRN PRN Reason: PROTOCOL Sodium Chloride (Sodium Chloride 0.9%) 1,000 mls @ 35 mls/hr IV .Q24H [facility] Sodium Chloride (Sodium Chloride 0.9%) 1,000 mls @ 35 mls/hr IV .Q24H [facility] Ibuprofen (Motrin Tab) 600 mg PO Q12H PRN PRN Reason: Pain, Mild (1-3) Last Admin: 09/06/17 17:28 Dose: 600 mg Lisinopril (Zestril) 5 mg PO DAILY [facility] Last Admin: 09/07/17 10:39 Dose: Not Given Pantoprazole Sodium (Protonix Ec Tab) 40 mg PO DAILY [facility] Last Admin: 09/07/17 10:38 Dose: Not Given Physical Exam - Head Exam Head Exam: ATRAUMATIC, NORMAL INSPECTION, NORMOCEPHALIC - Eye Exam Eye Exam: EOMI, Normal appearance, PERRL - ENT Exam ENT Exam: Mucous Membranes Moist, Normal Exam - Neck Exam Neck exam: Positive for: Normal Inspection - Respiratory Exam Respiratory Exam: Clear to Auscultation Bilateral, NORMAL BREATHING PATTERN - Cardiovascular Exam Cardiovascular Exam: REGULAR RHYTHM - GI/Abdominal Exam GI & Abdominal Exam: Normal Bowel Sounds, Soft. absent: Tenderness - Expanded Lower Extremities Exam Left Lower Leg Exam: tenderness (ulcer) Right Lower Leg Exam: tenderness (ulcer) - Neurological Exam Neurological exam: Alert, CN II-XII Intact - Psychiatric Exam Psychiatric exam: Normal Affect, Normal Mood Results - Vital Signs Recent Vital Signs: Last Vital Signs Temp 99.2 F 09/07/17 16:00 Pulse 94 H 09/07/17 16:50 Resp 19 09/07/17 16:50 BP 103/63 09/07/17 16:39 Pulse Ox 99 09/07/17 16:50 - Labs Result Diagrams: 09/06/17 08:20 09/06/17 08:20 Labs: Laboratory Results - last 24 hr 09/07/17 08:33 Prostate Specific Ag 0.394 Assessment & Plan (1) IVC thrombosis Assessment and Plan: 52yo M. PMHx HTN, VICENTE, HLD, pulm HTN, obesity, chronic DVT of bilateral lower extremitites, IVC filter placement (2009). p/w infected heel ulcers, was found to have a completely thrombosed IVC Filter, that had EKOS catheter placed through it for clot dissolution. Neuro: alert and oriented x 3, ibuporofen for pain. Pulm: no acute issues, breathing spontaneously on room air CV: hemodynamically stable. HTN controlled with lisinopril po. Hem: tPA administration via EKOS catheter, will monitor for bleeding complications. Renal: no acute issues Endo: no acute issues GI: low cholesterol diet ID: bilateral lower extremity ulcers, continue Vancomyicn q12h. DVT proph - tPA GI proph - protonix Code status - full code Critical Care Time spent 35 minutes Multi-disciplinary rounds were performed with house staff, nursing, speech therapy, respiratory therapy, pharmacy and nutrition with integrated input from the primary team/attending and other consulting services. The documented time is cumulative and includes review of patient data/exams/labs/chart review and examination of the patient on rounds and throughout the day; time is exclusive of any procedures or teaching time. Status: Acute
[2017-09-07] MEDS: Vancomycin 1 gm/NS 200 ml 1 GM/200 ML BAG IVPB SCH (17:44)
--- NOTE | 2017-09-07 18:01 | CP.PCM.PN ---
Subjective - Date & Time of Evaluation Date of Evaluation: 09/07/17 Time of Evaluation: 10:00 - Subjective Subjective: EVENTS NOTED IN ICU FOR MONITORING Objective - Vital Signs/Intake and Output Vital Signs (last 24 hours): Temp Pulse Resp BP Pulse Ox 99.2 F 91 H 13 112/73 98 09/07/17 16:00 09/07/17 17:20 09/07/17 17:20 09/07/17 17:09 09/07/17 17:20 Intake and Output: 09/07/17 09/07/17 06:59 18:59 Intake Total 1010 Output Total 600 Balance 410 - Medications Medications: Current Medications Collagenase (Santyl) 0 gm TOP DAILY [facility] Last Admin: 09/07/17 10:38 Dose: Not Given Ferrous Gluconate (Fergon) 324 mg PO TID [facility] Last Admin: 09/07/17 17:44 Dose: 324 mg Vancomycin/Sodium Chloride (Vancomycin 1 Gm/Ns 200 Ml) 1 gm in 200 mls @ 166.6 mls/hr IVPB Q12H [facility]OMMY PRN Reason: Protocol Stop: 09/10/17 12:01 Last Admin: 09/07/17 17:44 Dose: 166.6 mls/hr Heparin Sodium/Sodium Chloride (Heparin 81062 Units/250ml 1/2 Normal Saline) 25 ,000 units in 250 mls @ 5 mls/hr IV STAT STA PRN Reason: 500 UNIT/HR Stop: 09/09/17 13:15 Last Admin: 09/07/17 17:10 Dose: Not Given Alteplase, Recombinant 5 mg/ (Sodium Chloride) 250 mls @ 25 mls/hr IV ONCE ONE Stop: 09/07/17 21:14 Heparin Sodium/Sodium Chloride (Heparin 94639 Units/250ml 1/2 Normal Saline) 25 ,000 units in 250 mls @ 5 mls/hr IV .Q24H PRN PRN Reason: PROTOCOL Last Admin: 09/07/17 17:05 Dose: 5 mls/hr Heparin Sodium/Sodium Chloride (Heparin 72980 Units/250ml 1/2 Normal Saline) 25 ,000 units in 250 mls @ 5 mls/hr IV .Q24H PRN PRN Reason: PROTOCOL Last Admin: 09/07/17 17:09 Dose: 5 mls/hr Sodium Chloride (Sodium Chloride 0.9%) 1,000 mls @ 35 mls/hr IV .Q24H [facility] Last Admin: 09/07/17 17:15 Dose: 35 mls/hr Sodium Chloride (Sodium Chloride 0.9%) 1,000 mls @ 35 mls/hr IV .Q24H [facility] Last Admin: 09/07/17 17:16 Dose: 35 mls/hr Ibuprofen (Motrin Tab) 600 mg PO Q12H PRN PRN Reason: Pain, Mild (1-3) Last Admin: 09/06/17 17:28 Dose: 600 mg Lisinopril (Zestril) 5 mg PO DAILY [facility] Last Admin: 09/07/17 10:39 Dose: Not Given Pantoprazole Sodium (Protonix Ec Tab) 40 mg PO DAILY [facility] Last Admin: 09/07/17 10:38 Dose: Not Given - Labs Labs: 09/06/17 08:20 09/06/17 08:20 PT 14.5 SECONDS (9.7-12.2) H 09/05/17 13:46 INR 1.3 09/05/17 13:46 APTT 37 SECONDS (21-34) H 09/05/17 13:46 - Constitutional Appears: Non-toxic, Chronically Ill - Head Exam Head Exam: NORMOCEPHALIC - Eye Exam Eye Exam: PERRL - ENT Exam ENT Exam: Mucous Membranes Dry - Neck Exam Neck Exam: absent: Lymphadenopathy - Respiratory Exam Respiratory Exam: Decreased Breath Sounds - Cardiovascular Exam Cardiovascular Exam: REGULAR RHYTHM - GI/Abdominal Exam GI & Abdominal Exam: Distended - Rectal Exam Rectal Exam: Deferred - Exam Exam: NORMAL INSPECTION - Extremities Exam Extremities Exam: Pedal Edema - Back Exam Back Exam: absent: CVA tenderness (L), CVA tenderness (R) Assessment and Plan (1) Diabetic ulcer of ankle Status: Acute (2) Anemia Status: Acute (3) Bilateral cellulitis of lower leg Status: Acute (4) Bilateral leg ulcer Status: Deleted (5) Cellulitis Status: Acute (6) Chronic cutaneous venous stasis ulcer Status: Acute (7) Congestive heart failure due to high blood pressure Status: Acute (8) Coronary artery disease Status: Acute (9) Hypertension Status: Acute (10) Sleep apnea Status: Acute (11) Obesity Status: Chronic
--- NOTE | 2017-09-07 22:34 | CP.PCM.PN ---
Subjective - Date & Time of Evaluation Date of Evaluation: 09/07/17 Time of Evaluation: 13:35 - Subjective Subjective: Patient underwent venogram with thromectomy. Presently stable. Will be monitored in ICU. Objective - Vital Signs/Intake and Output Vital Signs (last 24 hours): Temp Pulse Resp BP Pulse Ox 99.2 F 104 H 17 108/64 92 L 09/07/17 16:00 09/07/17 22:00 09/07/17 22:00 09/07/17 21:46 09/07/17 22:00 Intake and Output: 09/07/17 09/08/17 18:59 06:59 Intake Total 1315 1720 Output Total 875 900 Balance 440 820 - Medications Medications: Current Medications Collagenase (Santyl) 0 gm TOP DAILY [facility] Last Admin: 09/07/17 10:38 Dose: Not Given Ferrous Gluconate (Fergon) 324 mg PO TID [facility] Last Admin: 09/07/17 17:44 Dose: 324 mg Vancomycin/Sodium Chloride (Vancomycin 1 Gm/Ns 200 Ml) 1 gm in 200 mls @ 166.6 mls/hr IVPB Q12H TOMMY PRN Reason: Protocol Stop: 09/10/17 12:01 Last Admin: 09/07/17 17:44 Dose: 166.6 mls/hr Heparin Sodium/Sodium Chloride (Heparin 81610 Units/250ml 1/2 Normal Saline) 25 ,000 units in 250 mls @ 5 mls/hr IV STAT STA PRN Reason: 500 UNIT/HR Stop: 09/09/17 13:15 Last Admin: 09/07/17 17:10 Dose: Not Given Heparin Sodium/Sodium Chloride (Heparin 80211 Units/250ml 1/2 Normal Saline) 25 ,000 units in 250 mls @ 5 mls/hr IV .Q24H PRN PRN Reason: PROTOCOL Last Admin: 09/07/17 17:05 Dose: 5 mls/hr Heparin Sodium/Sodium Chloride (Heparin 09847 Units/250ml 1/2 Normal Saline) 25 ,000 units in 250 mls @ 5 mls/hr IV .Q24H PRN PRN Reason: PROTOCOL Last Admin: 09/07/17 17:09 Dose: 5 mls/hr Sodium Chloride (Sodium Chloride 0.9%) 1,000 mls @ 35 mls/hr IV .Q24H [facility] Last Admin: 09/07/17 17:15 Dose: 35 mls/hr Sodium Chloride (Sodium Chloride 0.9%) 1,000 mls @ 35 mls/hr IV .Q24H [facility] Last Admin: 09/07/17 17:16 Dose: 35 mls/hr Ibuprofen (Motrin Tab) 600 mg PO Q12H PRN PRN Reason: Pain, Mild (1-3) Last Admin: 09/06/17 17:28 Dose: 600 mg Lisinopril (Zestril) 5 mg PO DAILY [facility] Last Admin: 09/07/17 10:39 Dose: Not Given Pantoprazole Sodium (Protonix Ec Tab) 40 mg PO DAILY [facility] Last Admin: 09/07/17 10:38 Dose: Not Given - Labs Labs: 09/06/17 08:20 09/06/17 08:20 PT 14.5 SECONDS (9.7-12.2) H 09/05/17 13:46 INR 1.3 09/05/17 13:46 APTT 37 SECONDS (21-34) H 09/05/17 13:46 Assessment and Plan (1) Degenerative joint disease Status: Acute (2) Hypertension Status: Acute (3) Obesity Status: Chronic (4) Peripheral vascular disease of lower extremity with ulceration Status: Acute (5) IVC thrombosis Status: Acute (6) 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
[2017-09-08] MEDS: Vancomycin 1 gm/NS 200 ml 1 GM/200 ML BAG IVPB SCH ×3 (00:37→23:58)
[2017-09-08 06:03] LABS: BASO # 0.1 K/uL (0.0-0.2); BASO % 0.5 % (0.0-2.0); EOS % 0.4 % (0.0-4.0); LYMPH # 0.6 K/uL (1.0-4.3); LYMPH % 6.1 % (20.0-40.0); MEAN CELL VOLUME 85.7 fL (80.0-94.0); MEAN CORPUSCULAR HEMOGLOBIN 30.2 pg (27.0-31.0); MEAN CORPUSCULAR HGB CONC 35.2 g/dL (33.0-37.0); MEAN PLATELET VOLUME 7.7 fL (7.2-11.7); MONO # 1.3 K/uL (0.0-0.8); MONO % 12.4 % (0.0-10.0); NEUT # 8.5 K/uL (1.8-7.0); NEUT % 80.6 % (50.0-75.0); NRBC % 0.1 % (0.0-2.0); PLATELET COUNT 357 K/uL (130-400); RBC 3.64 Mil/uL (4.40-5.90); RED CELL DISTRIBUTION WIDTH 14.5 % (11.5-14.5); WHITE BLOOD COUNT 10.5 K/uL (4.8-10.8)
[2017-09-08 06:17] LABS: INR 1.4; PROTHROMBIN TIME 15.8 SECONDS (9.7-12.2)
[2017-09-08 06:23] LABS: ALB/GLOB RATIO 0.7 (1.0-2.1); ALBUMIN 3.1 g/dL (3.5-5.0); ALT/SGPT < 6 U/L (21-72); AST/SGOT 23 U/L (17-59); BLOOD UREA NITROGEN 20 mg/dL (9-20); CALCIUM 8.2 mg/dl (8.6-10.4); GFR AFRICAN-AMERICAN > 60; GFR NON-AFRICAN AMERICAN > 60
[2017-09-08 08:08] LABS: HYPOCHROMIC SLIGHT; LYMPHOCYTE 5 % (20-40); MONOCYTE 10 % (0-10); NEUTROPHIL 85 % (50-75); PLATELET ESTIMATE NORMAL (NORMAL); TOTAL CELLS COUNTED 100
--- NOTE | 2017-09-08 09:24 | VAS ---
DATE: 09/07/2017 INDICATION: Mr. Rosario is a pleasant 52-year-old male with history of DVT, IVC filter placement 10 years ago, who presented with complaints of nonhealing ulcer of bilateral lower extremities and worsening swelling. The patient had a ulcer ongoing treatment for more than 6 months to a year, underwent a CT venogram which showed thrombosed IVC filter with complete occlusion of the venous return. He was therefore brought to the [facility] for possible venogram with plus minus thrombolytic and venoplasty. PROCEDURE CARRIED OUT: Bilateral femoral venograms with 8-Bruneian bilateral venous access catheters, venoplasty of the thrombosed IVC filter using 6-0 and a 9-0 balloons and subsequently using a 14-mm wall balloon, thrombolysis, TPA infusion and suction thrombectomy using the Penumbra CAT 8.0 suction catheter.Placement of EKOS cathter thru left femoral vein PROCEDURE AND FINDINGS: After obtaining informed consent, the patient was brought to the cardiac catheterization suite in post-absorptive and non-sedated state. The patient was prepped and draped in the usual sterile fashion. A 2% lidocaine was used for infiltration of anesthesia. Using modified Seldinger technique, the right common femoral vein was accessed. A venogram was obtained to identify the anatomy and subsequently a 5-Bruneian sheath was inserted. Initially a right femoral venogram was obtained which showed that the common iliac is completely atheretic which has significant collateral venous return through the lumbar and internal iliac veins. Subsequently a left common femoral venous access was obtained. Left common femoral venogram was obtained which showed that the internal iliac and common iliac had some mild flow. Over a 0.035 supporting catheter, a Glidewire was advanced up to the level of the IVC filter. At this point, the Penumbra CAT 8.0 catheter was used for suction thrombectomy. Significant thrombus burden was noted. The wire was able to negotiate through the thrombosed IVC filter up past into the distal IVC. At this point, multiple runs of the Penumbra CAT 8.0 thrombectomy was done. Subsequently, balloon angioplasty through the thrombosed IVC filter was done initially with a 6.0 balloon and subsequently a wall stent balloon was deployed. At this time, the 9.0 x 100 balloon was done and multiple angioplasties of the IVC into the common iliac and the left common femoral vein was done. Final venograms showed significant thrombus burden. At this point, it was decided to infuse the TPA for 24 hours by using the EKOS thrombolytic catheter. IMPRESSION: Successful recanalization of the thrombosed IVC filter, use of 6-0, 9-0 and a 14-0 balloons, suction thrombectomy using a CAT 8.0 Penumbra thrombectomy catheter device, venoplasty done. EKOS catheter insertion for significantly thrombosed burden of the IVC. RECOMMENDATIONS: The patient is to be kept in the ICU overnight for 24 hours with TPA infusion at 0.5 mg. Continue the patient on IV heparin at 1000 mg an hour. The patient is to be brought back for further evaluation of venous reconstitution strategy in 24 hours. Jose Prince MD MTDD
--- NOTE | 2017-09-08 10:13 | CP.PCM.PN ---
Subjective - Date & Time of Evaluation Date of Evaluation: 09/08/17 Time of Evaluation: 10:12 - Subjective Subjective: Podiatry Progress note for Dr. Peres 52 year old male was seen at bedside for chronic non-healing wounds. Patient resting comfortably, NAD. Patient is aware that later today he is going for another procedure. Dressings remain clean/dry/intact to bilateral LE. Denies N/V /F/D/C/SOB/QUINONEZ/dizziness. Objective - Vital Signs/Intake and Output Vital Signs (last 24 hours): Temp Pulse Resp BP Pulse Ox 100 F H 98 H 17 106/72 95 09/08/17 08:00 09/08/17 08:00 09/08/17 08:00 09/08/17 07:46 09/08/17 08:00 Intake and Output: 09/08/17 09/08/17 06:59 18:59 Intake Total 4060 210 Output Total 1600 500 Balance 2460 -290 - Medications Medications: Current Medications Collagenase (Santyl) 0 gm TOP DAILY [facility] Last Admin: 09/07/17 10:38 Dose: Not Given Ferrous Gluconate (Fergon) 324 mg PO TID [facility] Last Admin: 09/08/17 09:40 Dose: Not Given Vancomycin/Sodium Chloride (Vancomycin 1 Gm/Ns 200 Ml) 1 gm in 200 mls @ 166.6 mls/hr IVPB Q12H [facility]OM[facility] PRN Reason: Protocol Stop: 09/10/17 12:01 Last Admin: 09/08/17 00:37 Dose: 166.6 mls/hr Heparin Sodium/Sodium Chloride (Heparin 35244 Units/250ml 1/2 Normal Saline) 25 ,000 units in 250 mls @ 5 mls/hr IV STAT STA PRN Reason: 500 UNIT/HR Stop: 09/09/17 13:15 Last Admin: 09/07/17 17:10 Dose: Not Given Heparin Sodium/Sodium Chloride (Heparin 14401 Units/250ml 1/2 Normal Saline) 25 ,000 units in 250 mls @ 5 mls/hr IV .Q24H PRN PRN Reason: PROTOCOL Last Admin: 09/07/17 17:05 Dose: 5 mls/hr Heparin Sodium/Sodium Chloride (Heparin 95089 Units/250ml 1/2 Normal Saline) 25 ,000 units in 250 mls @ 5 mls/hr IV .Q24H PRN PRN Reason: PROTOCOL Last Admin: 09/07/17 17:09 Dose: 5 mls/hr Sodium Chloride (Sodium Chloride 0.9%) 1,000 mls @ 35 mls/hr IV .Q24H [facility] Last Admin: 09/07/17 17:15 Dose: 35 mls/hr Sodium Chloride (Sodium Chloride 0.9%) 1,000 mls @ 35 mls/hr IV .Q24H [facility] Last Admin: 09/07/17 17:16 Dose: 35 mls/hr Alteplase, Recombinant 5 mg/ (Sodium Chloride) 250 mls @ 25 mls/hr IV ONCE ONE Stop: 09/08/17 14:59 Last Admin: 09/08/17 06:36 Dose: 25 mls/hr Ibuprofen (Motrin Tab) 600 mg PO Q12H PRN PRN Reason: Pain, Mild (1-3) Last Admin: 09/06/17 17:28 Dose: 600 mg Lisinopril (Zestril) 5 mg PO DAILY [facility] Last Admin: 09/07/17 10:39 Dose: Not Given Pantoprazole Sodium (Protonix Ec Tab) 40 mg PO DAILY [facility] Last Admin: 09/07/17 10:38 Dose: Not Given - Labs Labs: 09/08/17 05:59 09/08/17 05:59 PT 15.8 SECONDS (9.7-12.2) H 09/08/17 05:59 INR 1.4 09/08/17 05:59 APTT 36 SECONDS (21-34) H 09/08/17 05:59 - Constitutional Appears: Well, Non-toxic, No Acute Distress - Extremities Exam Additional comments: dressings c/d/i to BL LE - Neurological Exam Neurological Exam: Alert, Awake, Oriented x3 - Psychiatric Exam Psychiatric exam: Normal Affect, Normal Mood Assessment and Plan - Assessment and Plan (Free Text) Assessment: 52 year old male with bilateral chronic non-healing wounds Plan: Patient seen and evaluated Discussed with attending, Dr. Peres chart, labs,vitals reviewed;afebrile, WBC 10.5 Cont IV abx per ID L ankle pressure index of the LLE is non-diagnosic due to possible arterial wall calcifications LE venous duplex exam:chronic partial thrombosis of the right and left common femoral, femoral and poplietal veins with severe reduction of venous return Patient for possible stenting today per Dr. Prince wound culture- strep viridans Continue local wound care: saline cleanse,carlos schaeffer, ISELA, WILLARD podiatry will cont to follow patient while in house
[2017-09-08] MEDS ORDERED: Lidocaine 2% MPF (5 ml) Inj ONE (13:26)
[2017-09-08] MEDS ORDERED: Iodixanol 320 MG/ML 100 ML BOTTLE IV ONE ×2 (13:40→14:07)
[2017-09-08] MEDS ORDERED: Midazolam 2 MG/2 ML VIAL ONE ×4 (13:43→17:44)
--- NOTE | 2017-09-08 15:20 | CP.CCUPN ---
<PerezezOrlandotorrey - Last Filed: 09/08/17 15:45> CCU Subjective - Physician Review Subjective (Free Text): Patient seen and examined. Patient had elevated temp overnight that resolved. Patient has no complaints at this time. CCU Objective - Vital Signs / Intake & Output Vital Signs (Last 4 hours): Vital Signs Temp Pulse Resp BP Pulse Ox 09/08/17 14:00 91 H 24 98 09/08/17 13:46 89 21 106/76 97 09/08/17 13:00 95 H 25 H 96 09/08/17 12:46 92 H 24 122/75 96 09/08/17 12:00 99.7 F H 91 H 27 H 95 09/08/17 11:46 92 H 21 114/71 95 Intake and Output (Last 8hrs): Intake & Output 09/08/17 09/08/17 09/08/17 06:59 14:59 22:59 Intake Total 2340 1040 105 Output Total 700 1950 Balance 1640 -910 105 Intake: Intake, IV Amount 840 1040 105 Left Femoral #2 200 200 25 Left Femoral #3 40 40 5 Left Femoral#1 280 280 35 Right Femoral #1 280 280 35 Right Femoral #2 40 40 5 Right Forearm 200 Oral 1500 Output: Urine 700 1950 Urine, Voided 700 1950 - Physical Exam Head: Positive for: Atraumatic, Normocephalic Extroacular Muscles: Positive for: EOMI Conjunctiva: Positive for: Normal Mouth: Positive for: Moist Mucous Membranes Nose (External): Positive for: Atraumatic Nose (Internal): Positive for: Normal Inspection Respiratory/Chest: Positive for: Clear to Auscultation Cardiovascular: Positive for: Regular Rate and Rhythm, Normal S1, S2 Abdomen: Positive for: Normal Bowel Sounds. Negative for: Tenderness Upper Extremity: Positive for: Normal Inspection Lower Extremity: Positive for: Other (B/L Lower extremity Ulcer. Dressing Clean , Dry, and Intact. Ethos Catheter in R Femoral. No Erythema, Bleeding from Catheter Site. ). Negative for: Normal Inspection Neurological: Positive for: GCS=15 Skin: Positive for: Warm. Negative for: Erythematous - Medications Active Medications: Active Medications Generic Name Dose Route Start Last Admin Trade Name Freq PRN Reason Stop Dose Admin Collagenase 0 gm 08/28/17 15:15 09/07/17 10:38 Santyl TOP Not Given DAILY TOMMY Ferrous Gluconate 324 mg 08/28/17 18:00 09/08/17 14:10 Fergon PO Not Given TID TOMMY Vancomycin/Sodium Chloride 1 gm in 200 mls @ 166.6 mls/hr 09/05/17 12:00 03/18 11:32 Vancomycin 1 Gm/Ns 200 Ml IVPB 09/10/17 12:01 166.6 mls/hr Q12H TOMMY Administration Protocol Heparin Sodium/Sodium Chloride 25,000 units in 250 mls @ 5 mls/hr 09/07/17 11: 16 09/07/17 17:10 Heparin 55255 Units/250ml 1/2 Normal Saline IV 09/09/17 13:15 Not Given STAT STA 500 UNIT/HR Heparin Sodium/Sodium Chloride 25,000 units in 250 mls @ 5 mls/hr 09/07/17 16: 46 09/07/17 17:05 Heparin 55524 Units/250ml 1/2 Normal Saline IV 5 mls/hr .Q24H PRN Administration PROTOCOL Heparin Sodium/Sodium Chloride 25,000 units in 250 mls @ 5 mls/hr 09/07/17 16: 48 09/07/17 17:09 Heparin 14055 Units/250ml 1/2 Normal Saline IV 5 mls/hr .Q24H PRN Administration PROTOCOL Sodium Chloride 1,000 mls @ 35 mls/hr 09/07/17 17:00 09/07/17 17:15 Sodium Chloride 0.9% IV 35 mls/hr .Q24H TOMMY Administration Sodium Chloride 1,000 mls @ 35 mls/hr 09/07/17 17:00 09/07/17 17:16 Sodium Chloride 0.9% IV 35 mls/hr .Q24H TOMMY Administration Ibuprofen 600 mg 08/29/17 11:16 09/06/17 17:28 Motrin Tab PO 600 mg Q12H PRN Administration Pain, Mild (1-3) Lisinopril 5 mg 08/29/17 10:00 09/07/17 10:39 Zestril PO Not Given DAILY TOMMY Pantoprazole Sodium 40 mg 08/29/17 10:00 09/07/17 10:38 Protonix Ec Tab PO Not Given DAILY TOMMY - Patient Studies Lab Studies: Microbiology Studies 09/05/17 14:50 Blood Culture - Preliminary Blood-Venous NO GROWTH AFTER 3 DAYS 09/05/17 13:46 Blood Culture - Preliminary Blood-Venous NO GROWTH AFTER 3 DAYS Lab Studies 09/08/17 09/08/17 09/08/17 Range/Units 10:22 05:59 05:59 WBC (4.8-10.8) K/uL RBC (4.40-5.90) Mil/uL Hgb (12.0-18.0) g/dL Hct (35.0-51.0) % MCV (80.0-94.0) fL MCH (27.0-31.0) pg MCHC (33.0-37.0) g/dL RDW (11.5-14.5) % Plt Count (130-400) K/uL MPV (7.2-11.7) fL Neut % (Auto) (50.0-75.0) % Lymph % (Auto) (20.0-40.0) % Payette % (Auto) (0.0-10.0) % Eos % (Auto) (0.0-4.0) % Baso % (Auto) (0.0-2.0) % Neut # (Auto) (1.8-7.0) K/uL Lymph # (Auto) (1.0-4.3) K/uL Payette # (Auto) (0.0-0.8) K/uL Eos # (Auto) (0.0-0.7) K/uL Baso # (Auto) (0.0-0.2) K/uL Neutrophils % (Manual) (50-75) % Lymphocytes % (Manual) (20-40) % Monocytes % (Manual) (0-10) % Platelet Estimate (NORMAL) Hypochromasia (manual) PT 15.8 H (9.7-12.2) SECONDS INR 1.4 APTT 36 H (21-34) SECONDS Sodium 136 (132-148) mmol/L Potassium 4.1 (3.6-5.2) mmol/L Chloride 100 (98-107) mmol/L Carbon Dioxide 23 (22-30) mmol/L Anion Gap 17 (10-20) BUN 20 (9-20) mg/dL Creatinine 1.0 (0.8-1.5) mg/dL Est GFR ( Amer) > 60 Est GFR (Non-Af Amer) > 60 Random Glucose 105 (75-110) mg/dL Calcium 8.2 L (8.6-10.4) mg/dl Phosphorus 4.0 (2.5-4.5) mg/dL Magnesium 2.2 (1.6-2.3) mg/dL Total Bilirubin 1.1 (0.2-1.3) mg/dL AST 23 (17-59) U/L ALT < 6 L D (21-72) U/L Alkaline Phosphatase 126 D (38-126) U/L Total Protein 7.4 (6.3-8.3) g/dL Albumin 3.1 L (3.5-5.0) g/dL Globulin 4.3 H (2.2-3.9) gm/dL Albumin/Globulin Ratio 0.7 L (1.0-2.1) Vancomycin Trough 13.5 H (5.0-10.0) ug/mL 09/08/17 Range/Units 05:59 WBC 10.5 (4.8-10.8) K/uL RBC 3.64 L (4.40-5.90) Mil/uL Hgb 11.0 L (12.0-18.0) g/dL Hct 31.2 L (35.0-51.0) % MCV 85.7 (80.0-94.0) fL MCH 30.2 (27.0-31.0) pg MCHC 35.2 (33.0-37.0) g/dL RDW 14.5 (11.5-14.5) % Plt Count 357 (130-400) K/uL MPV 7.7 (7.2-11.7) fL Neut % (Auto) 80.6 H (50.0-75.0) % Lymph % (Auto) 6.1 L (20.0-40.0) % Payette % (Auto) 12.4 H (0.0-10.0) % Eos % (Auto) 0.4 (0.0-4.0) % Baso % (Auto) 0.5 (0.0-2.0) % Neut # (Auto) 8.5 H (1.8-7.0) K/uL Lymph # (Auto) 0.6 L (1.0-4.3) K/uL Payette # (Auto) 1.3 H (0.0-0.8) K/uL Eos # (Auto) 0.0 (0.0-0.7) K/uL Baso # (Auto) 0.1 (0.0-0.2) K/uL Neutrophils % (Manual) 85 H (50-75) % Lymphocytes % (Manual) 5 L (20-40) % Monocytes % (Manual) 10 (0-10) % Platelet Estimate Normal (NORMAL) Hypochromasia (manual) Slight PT (9.7-12.2) SECONDS INR APTT (21-34) SECONDS Sodium (132-148) mmol/L Potassium (3.6-5.2) mmol/L Chloride (98-107) mmol/L Carbon Dioxide (22-30) mmol/L Anion Gap (10-20) BUN (9-20) mg/dL Creatinine (0.8-1.5) mg/dL Est GFR ( Amer) Est GFR (Non-Af Amer) Random Glucose (75-110) mg/dL Calcium (8.6-10.4) mg/dl Phosphorus (2.5-4.5) mg/dL Magnesium (1.6-2.3) mg/dL Total Bilirubin (0.2-1.3) mg/dL AST (17-59) U/L ALT (21-72) U/L Alkaline Phosphatase (38-126) U/L Total Protein (6.3-8.3) g/dL Albumin (3.5-5.0) g/dL Globulin (2.2-3.9) gm/dL Albumin/Globulin Ratio (1.0-2.1) Vancomycin Trough (5.0-10.0) ug/mL Laboratory Results - last 24 hr 09/08/17 09/08/17 09/08/17 05:59 05:59 05:59 WBC 10.5 RBC 3.64 L Hgb 11.0 L Hct 31.2 L MCV 85.7 MCH 30.2 MCHC 35.2 RDW 14.5 Plt Count 357 MPV 7.7 Neut % (Auto) 80.6 H Lymph % (Auto) 6.1 L Payette % (Auto) 12.4 H Eos % (Auto) 0.4 Baso % (Auto) 0.5 Neut # (Auto) 8.5 H Lymph # (Auto) 0.6 L Payette # (Auto) 1.3 H Eos # (Auto) 0.0 Baso # (Auto) 0.1 Neutrophils % (Manual) 85 H Lymphocytes % (Manual) 5 L Monocytes % (Manual) 10 Platelet Estimate Normal Hypochromasia (manual) Slight PT 15.8 H INR 1.4 APTT 36 H Sodium 136 Potassium 4.1 Chloride 100 Carbon Dioxide 23 Anion Gap 17 BUN 20 Creatinine 1.0 Est GFR ( Amer) > 60 Est GFR (Non-Af Amer) > 60 Random Glucose 105 Calcium 8.2 L Phosphorus 4.0 Magnesium 2.2 Total Bilirubin 1.1 AST 23 ALT < 6 L D Alkaline Phosphatase 126 D Total Protein 7.4 Albumin 3.1 L Globulin 4.3 H Albumin/Globulin Ratio 0.7 L Vancomycin Trough 09/08/17 10:22 WBC RBC Hgb Hct MCV MCH MCHC RDW Plt Count MPV Neut % (Auto) Lymph % (Auto) Payette % (Auto) Eos % (Auto) Baso % (Auto) Neut # (Auto) Lymph # (Auto) Payette # (Auto) Eos # (Auto) Baso # (Auto) Neutrophils % (Manual) Lymphocytes % (Manual) Monocytes % (Manual) Platelet Estimate Hypochromasia (manual) PT INR APTT Sodium Potassium Chloride Carbon Dioxide Anion Gap BUN Creatinine Est GFR ( Amer) Est GFR (Non-Af Amer) Random Glucose Calcium Phosphorus Magnesium Total Bilirubin AST ALT Alkaline Phosphatase Total Protein Albumin Globulin Albumin/Globulin Ratio Vancomycin Trough 13.5 H Review of Systems - Constitutional Constitutional: Fever (Overnight, Resolved. ). absent: Chills - EENT Eyes: UNREMARKABLE Nose/Mouth/Throat: UNREMARKABLE - Cardiovascular Cardiovascular: UNREMARKABLE. absent: Chest Pain, Irregular Heart Rhythm - Respiratory Respiratory: UNREMARKABLE. absent: Wheezing - Gastrointestinal Gastrointestinal: UNREMARKABLE. absent: Abdominal Pain, Diarrhea - Genitourinary Genitourinary: UNREMARKABLE. absent: Dysuria, Urinary Incontinence - Musculoskeletal Musculoskeletal: UNREMARKABLE - Neurological Neurological: UNREMARKABLE - Hematologic/Lymphatic Hematologic: Easy Bleeding Critical Care Progress Note - Nutrition Nutrition: Nutrition Category Date Time Status Heart Healthy Diet [DIET] Diets 09/07/17 Dinner Active Assessment/Plan - Assessment and Plan (Free Text) Assessment: 52yo M. PMHx HTN, VICENTE, HLD, pulm HTN, obesity, chronic DVT of bilateral lower extremitites, IVC filter placement (2009). p/w infected heel ulcers, was found to have a completely thrombosed IVC Filter, that had EKOS catheter placed through it for clot dissolution. Plan: Neuro: GCS=15, alert and oriented x 3, ibuporofen for pain. Pulm: no acute issues, breathing spontaneously on room air CV: hemodynamically stable. HTN controlled with lisinopril po. Hem: tPA administration via EKOS catheter, will monitor for bleeding complications. Patient to go for Stenting today with Dr. Prince. Renal: no acute issues Endo: no acute issues GI: low cholesterol diet ID: bilateral lower extremity ulcers, continue Vancomyicn q12h. DVT proph - tPA GI proph - protonix Code status - full code Patient discussed with Attending Jake Lott, PGY-1 <Niall Peterson - Last Filed: 09/08/17 17:31> CCU Objective - Vital Signs / Intake & Output Vital Signs (Last 4 hours): Vital Signs Pulse Resp BP Pulse Ox 09/08/17 14:00 91 H 24 98 09/08/17 13:46 89 21 106/76 97 Intake and Output (Last 8hrs): Intake & Output 09/08/17 09/08/17 09/08/17 06:59 14:59 22:59 Intake Total 2340 1040 105 Output Total 700 1950 Balance 1640 -910 105 Intake: Intake, IV Amount 840 1040 105 Left Femoral #2 200 200 25 Left Femoral #3 40 40 5 Left Femoral#1 280 280 35 Right Femoral #1 280 280 35 Right Femoral #2 40 40 5 Right Forearm 200 Oral 1500 Output: Urine 700 1950 Urine, Voided 700 1950 - Medications Active Medications: Active Medications Generic Name Dose Route Start Last Admin Trade Name Freq PRN Reason Stop Dose Admin Collagenase 0 gm 08/28/17 15:15 09/07/17 10:38 Santyl TOP Not Given DAILY [facility] Ferrous Gluconate 324 mg 08/28/17 18:00 09/08/17 14:10 Fergon PO Not Given TID TOMMY Vancomycin/Sodium Chloride 1 gm in 200 mls @ 166.6 mls/hr 09/05/17 12:00 03/18 11:32 Vancomycin 1 Gm/Ns 200 Ml IVPB 09/10/17 12:01 166.6 mls/hr Q12H TOMMY Administration Protocol Heparin Sodium/Sodium Chloride 25,000 units in 250 mls @ 5 mls/hr 09/07/17 11: 16 09/07/17 17:10 Heparin 89616 Units/250ml 1/2 Normal Saline IV 09/09/17 13:15 Not Given STAT STA 500 UNIT/HR Heparin Sodium/Sodium Chloride 25,000 units in 250 mls @ 5 mls/hr 09/07/17 16: 46 09/07/17 17:05 Heparin 15927 Units/250ml 1/2 Normal Saline IV 5 mls/hr .Q24H PRN Administration PROTOCOL Heparin Sodium/Sodium Chloride 25,000 units in 250 mls @ 5 mls/hr 09/07/17 16: 48 09/07/17 17:09 Heparin 42636 Units/250ml 1/2 Normal Saline IV 5 mls/hr .Q24H PRN Administration PROTOCOL Sodium Chloride 1,000 mls @ 35 mls/hr 09/07/17 17:00 09/07/17 17:15 Sodium Chloride 0.9% IV 35 mls/hr .Q24H TOMMY Administration Sodium Chloride 1,000 mls @ 35 mls/hr 09/07/17 17:00 09/07/17 17:16 Sodium Chloride 0.9% IV 35 mls/hr .Q24H TOMMY Administration Ibuprofen 600 mg 08/29/17 11:16 09/06/17 17:28 Motrin Tab PO 600 mg Q12H PRN Administration Pain, Mild (1-3) Lisinopril 5 mg 08/29/17 10:00 09/07/17 10:39 Zestril PO Not Given DAILY TOMMY Pantoprazole Sodium 40 mg 08/29/17 10:00 09/07/17 10:38 Protonix Ec Tab PO Not Given DAILY TOMMY - Patient Studies Lab Studies: Microbiology Studies 09/05/17 14:50 Blood Culture - Preliminary Blood-Venous NO GROWTH AFTER 3 DAYS 09/05/17 13:46 Blood Culture - Preliminary Blood-Venous NO GROWTH AFTER 3 DAYS Lab Studies 09/08/17 09/08/17 09/08/17 Range/Units 10:22 05:59 05:59 WBC (4.8-10.8) K/uL RBC (4.40-5.90) Mil/uL Hgb (12.0-18.0) g/dL Hct (35.0-51.0) % MCV (80.0-94.0) fL MCH (27.0-31.0) pg MCHC (33.0-37.0) g/dL RDW (11.5-14.5) % Plt Count (130-400) K/uL MPV (7.2-11.7) fL Neut % (Auto) (50.0-75.0) % Lymph % (Auto) (20.0-40.0) % Payette % (Auto) (0.0-10.0) % Eos % (Auto) (0.0-4.0) % Baso % (Auto) (0.0-2.0) % Neut # (Auto) (1.8-7.0) K/uL Lymph # (Auto) (1.0-4.3) K/uL Payette # (Auto) (0.0-0.8) K/uL Eos # (Auto) (0.0-0.7) K/uL Baso # (Auto) (0.0-0.2) K/uL Neutrophils % (Manual) (50-75) % Lymphocytes % (Manual) (20-40) % Monocytes % (Manual) (0-10) % Platelet Estimate (NORMAL) Hypochromasia (manual) PT 15.8 H (9.7-12.2) SECONDS INR 1.4 APTT 36 H (21-34) SECONDS Sodium 136 (132-148) mmol/L Potassium 4.1 (3.6-5.2) mmol/L Chloride 100 (98-107) mmol/L Carbon Dioxide 23 (22-30) mmol/L Anion Gap 17 (10-20) BUN 20 (9-20) mg/dL Creatinine 1.0 (0.8-1.5) mg/dL Est GFR ( Amer) > 60 Est GFR (Non-Af Amer) > 60 Random Glucose 105 (75-110) mg/dL Calcium 8.2 L (8.6-10.4) mg/dl Phosphorus 4.0 (2.5-4.5) mg/dL Magnesium 2.2 (1.6-2.3) mg/dL Total Bilirubin 1.1 (0.2-1.3) mg/dL AST 23 (17-59) U/L ALT < 6 L D (21-72) U/L Alkaline Phosphatase 126 D (38-126) U/L Total Protein 7.4 (6.3-8.3) g/dL Albumin 3.1 L (3.5-5.0) g/dL Globulin 4.3 H (2.2-3.9) gm/dL Albumin/Globulin Ratio 0.7 L (1.0-2.1) Vancomycin Trough 13.5 H (5.0-10.0) ug/mL 09/08/17 Range/Units 05:59 WBC 10.5 (4.8-10.8) K/uL RBC 3.64 L (4.40-5.90) Mil/uL Hgb 11.0 L (12.0-18.0) g/dL Hct 31.2 L (35.0-51.0) % MCV 85.7 (80.0-94.0) fL MCH 30.2 (27.0-31.0) pg MCHC 35.2 (33.0-37.0) g/dL RDW 14.5 (11.5-14.5) % Plt Count 357 (130-400) K/uL MPV 7.7 (7.2-11.7) fL Neut % (Auto) 80.6 H (50.0-75.0) % Lymph % (Auto) 6.1 L (20.0-40.0) % Payette % (Auto) 12.4 H (0.0-10.0) % Eos % (Auto) 0.4 (0.0-4.0) % Baso % (Auto) 0.5 (0.0-2.0) % Neut # (Auto) 8.5 H (1.8-7.0) K/uL Lymph # (Auto) 0.6 L (1.0-4.3) K/uL Payette # (Auto) 1.3 H (0.0-0.8) K/uL Eos # (Auto) 0.0 (0.0-0.7) K/uL Baso # (Auto) 0.1 (0.0-0.2) K/uL Neutrophils % (Manual) 85 H (50-75) % Lymphocytes % (Manual) 5 L (20-40) % Monocytes % (Manual) 10 (0-10) % Platelet Estimate Normal (NORMAL) Hypochromasia (manual) Slight PT (9.7-12.2) SECONDS INR APTT (21-34) SECONDS Sodium (132-148) mmol/L Potassium (3.6-5.2) mmol/L Chloride (98-107) mmol/L Carbon Dioxide (22-30) mmol/L Anion Gap (10-20) BUN (9-20) mg/dL Creatinine (0.8-1.5) mg/dL Est GFR ( Amer) Est GFR (Non-Af Amer) Random Glucose (75-110) mg/dL Calcium (8.6-10.4) mg/dl Phosphorus (2.5-4.5) mg/dL Magnesium (1.6-2.3) mg/dL Total Bilirubin (0.2-1.3) mg/dL AST (17-59) U/L ALT (21-72) U/L Alkaline Phosphatase (38-126) U/L Total Protein (6.3-8.3) g/dL Albumin (3.5-5.0) g/dL Globulin (2.2-3.9) gm/dL Albumin/Globulin Ratio (1.0-2.1) Vancomycin Trough (5.0-10.0) ug/mL Laboratory Results - last 24 hr 09/08/17 09/08/17 09/08/17 05:59 05:59 05:59 WBC 10.5 RBC 3.64 L Hgb 11.0 L Hct 31.2 L MCV 85.7 MCH 30.2 MCHC 35.2 RDW 14.5 Plt Count 357 MPV 7.7 Neut % (Auto) 80.6 H Lymph % (Auto) 6.1 L Payette % (Auto) 12.4 H Eos % (Auto) 0.4 Baso % (Auto) 0.5 Neut # (Auto) 8.5 H Lymph # (Auto) 0.6 L Payette # (Auto) 1.3 H Eos # (Auto) 0.0 Baso # (Auto) 0.1 Neutrophils % (Manual) 85 H Lymphocytes % (Manual) 5 L Monocytes % (Manual) 10 Platelet Estimate Normal Hypochromasia (manual) Slight PT 15.8 H INR 1.4 APTT 36 H Sodium 136 Potassium 4.1 Chloride 100 Carbon Dioxide 23 Anion Gap 17 BUN 20 Creatinine 1.0 Est GFR ( Amer) > 60 Est GFR (Non-Af Amer) > 60 Random Glucose 105 Calcium 8.2 L Phosphorus 4.0 Magnesium 2.2 Total Bilirubin 1.1 AST 23 ALT < 6 L D Alkaline Phosphatase 126 D Total Protein 7.4 Albumin 3.1 L Globulin 4.3 H Albumin/Globulin Ratio 0.7 L Vancomycin Trough 09/08/17 10:22 WBC RBC Hgb Hct MCV MCH MCHC RDW Plt Count MPV Neut % (Auto) Lymph % (Auto) Payette % (Auto) Eos % (Auto) Baso % (Auto) Neut # (Auto) Lymph # (Auto) Payette # (Auto) Eos # (Auto) Baso # (Auto) Neutrophils % (Manual) Lymphocytes % (Manual) Monocytes % (Manual) Platelet Estimate Hypochromasia (manual) PT INR APTT Sodium Potassium Chloride Carbon Dioxide Anion Gap BUN Creatinine Est GFR ( Amer) Est GFR (Non-Af Amer) Random Glucose Calcium Phosphorus Magnesium Total Bilirubin AST ALT Alkaline Phosphatase Total Protein Albumin Globulin Albumin/Globulin Ratio Vancomycin Trough 13.5 H Critical Care Progress Note - Nutrition Nutrition: Nutrition Category Date Time Status Heart Healthy Diet [DIET] Diets 09/07/17 Dinner Active Assessment/Plan (1) IVC thrombosis Current Visit: Yes Status: Acute Attending/Attestation - Attestation I have personally seen and examined this patient.: Yes I have fully participated in the care of the patient.: Yes I have reviewed all pertinent clinical information: Yes Notes (Text): 09/08/17 17:31 I have seen and examined the patient. Medical records, lab studies, and imaging were reviewed by me and a management plan was formulated on multidisciplinary rounds with resident Dr. Lott. I agree with their documented assessment and plan. Patient still on TPA via EKOS, going to OR today for removal of IVC filter and stent placement. Critical Care Time 35 minutes. Multi-disciplinary rounds were performed with house staff, nursing, speech therapy, respiratory therapy, pharmacy and nutrition with integrated input from the primary team/attending and other consulting services. The documented time is cumulative and includes review of patient data/exams/labs/chart review and examination of the patient on rounds and throughout the day; time is exclusive of any procedures or teaching time.
--- NOTE | 2017-09-08 17:54 | CP.PCM.PN ---
Subjective - Date & Time of Evaluation Date of Evaluation: 09/08/17 Time of Evaluation: 10:00 - Subjective Subjective: Patient had elevated temp overnight that resolved. Patient has no complaints at this time. Objective - Vital Signs/Intake and Output Vital Signs (last 24 hours): Temp Pulse Resp BP Pulse Ox 99.7 F H 91 H 24 106/76 98 09/08/17 12:00 09/08/17 14:00 09/08/17 14:00 09/08/17 13:46 09/08/17 14:00 Intake and Output: 09/08/17 09/08/17 06:59 18:59 Intake Total 4060 1145 Output Total 1600 1950 Balance 2460 -805 - Medications Medications: Current Medications Collagenase (Santyl) 0 gm TOP DAILY TOMMY Last Admin: 09/07/17 10:38 Dose: Not Given Ferrous Gluconate (Fergon) 324 mg PO TID TOMMY Last Admin: 09/08/17 14:10 Dose: Not Given Vancomycin/Sodium Chloride (Vancomycin 1 Gm/Ns 200 Ml) 1 gm in 200 mls @ 166.6 mls/hr IVPB Q12H TOMMY PRN Reason: Protocol Stop: 09/10/17 12:01 Last Admin: 09/08/17 11:32 Dose: 166.6 mls/hr Heparin Sodium/Sodium Chloride (Heparin 25170 Units/250ml 1/2 Normal Saline) 25 ,000 units in 250 mls @ 5 mls/hr IV STAT STA PRN Reason: 500 UNIT/HR Stop: 09/09/17 13:15 Last Admin: 09/07/17 17:10 Dose: Not Given Heparin Sodium/Sodium Chloride (Heparin 91871 Units/250ml 1/2 Normal Saline) 25 ,000 units in 250 mls @ 5 mls/hr IV .Q24H PRN PRN Reason: PROTOCOL Last Admin: 09/07/17 17:05 Dose: 5 mls/hr Heparin Sodium/Sodium Chloride (Heparin 42267 Units/250ml 1/2 Normal Saline) 25 ,000 units in 250 mls @ 5 mls/hr IV .Q24H PRN PRN Reason: PROTOCOL Last Admin: 09/07/17 17:09 Dose: 5 mls/hr Sodium Chloride (Sodium Chloride 0.9%) 1,000 mls @ 35 mls/hr IV .Q24H TOMMY Last Admin: 09/07/17 17:15 Dose: 35 mls/hr Sodium Chloride (Sodium Chloride 0.9%) 1,000 mls @ 35 mls/hr IV .Q24H [facility] Last Admin: 09/07/17 17:16 Dose: 35 mls/hr Ibuprofen (Motrin Tab) 600 mg PO Q12H PRN PRN Reason: Pain, Mild (1-3) Last Admin: 09/06/17 17:28 Dose: 600 mg Lisinopril (Zestril) 5 mg PO DAILY [facility] Last Admin: 09/07/17 10:39 Dose: Not Given Pantoprazole Sodium (Protonix Ec Tab) 40 mg PO DAILY [facility] Last Admin: 09/07/17 10:38 Dose: Not Given - Labs Labs: 09/08/17 05:59 09/08/17 05:59 PT 15.8 SECONDS (9.7-12.2) H 09/08/17 05:59 INR 1.4 09/08/17 05:59 APTT 36 SECONDS (21-34) H 09/08/17 05:59 - Constitutional Appears: Chronically Ill - Head Exam Head Exam: NORMAL INSPECTION - Eye Exam Eye Exam: EOMI Pupil Exam: NORMAL ACCOMODATION - ENT Exam ENT Exam: Mucous Membranes Dry - Neck Exam Neck Exam: absent: Lymphadenopathy - Respiratory Exam Respiratory Exam: Decreased Breath Sounds - Cardiovascular Exam Cardiovascular Exam: REGULAR RHYTHM - GI/Abdominal Exam GI & Abdominal Exam: Distended - Rectal Exam Rectal Exam: Deferred - Exam Exam: NORMAL INSPECTION - Extremities Exam Extremities Exam: Pedal Edema - Back Exam Back Exam: absent: CVA tenderness (L), CVA tenderness (R) Assessment and Plan (1) Diabetic ulcer of ankle Status: Acute (2) Anemia Status: Acute (3) Bilateral cellulitis of lower leg Status: Acute (4) Bilateral leg ulcer Status: Deleted (5) Cellulitis Status: Acute (6) Chronic cutaneous venous stasis ulcer Status: Acute (7) Congestive heart failure due to high blood pressure Status: Acute (8) Coronary artery disease Status: Acute (9) Hypertension Status: Acute (10) Sleep apnea Status: Acute (11) Obesity Status: Chronic - Assessment and Plan (Free Text) Assessment: CONT IV RX VANCO LEVEL OK
[2017-09-08] MEDS: Sodium Chloride 0.9% 1,000 ML IV SCH (19:00)
[2017-09-08] MEDS: Heparin25000 units/250ml 1/2NS 25,000 UNITS/250 ML BAG IV PRN (19:00)
[2017-09-08 20:05] LABS: HEMOGLOBIN 11.6 g/dL (12.0-18.0); MEAN CELL VOLUME 87.4 fL (80.0-94.0); MEAN CORPUSCULAR HEMOGLOBIN 29.7 pg (27.0-31.0); MEAN PLATELET VOLUME 7.3 fL (7.2-11.7); RBC 3.9 Mil/uL (4.40-5.90); RED CELL DISTRIBUTION WIDTH 14.2 % (11.5-14.5); WHITE BLOOD COUNT 13.8 K/uL (4.8-10.8)
[2017-09-08 20:13] LABS: INR 1.5; PROTHROMBIN TIME 16.7 SECONDS (9.7-12.2)
[2017-09-08] MEDS: Pantoprazole 40 mg EC Tab PO SCH (22:08)
--- NOTE | 2017-09-08 22:48 | CP.PCM.PN ---
Subjective - Date & Time of Evaluation Date of Evaluation: 09/08/17 Time of Evaluation: 13:25 - Subjective Subjective: Patient had fever over night. Presently in no distress. May need Stenting. Continue intensive care placement. Objective - Vital Signs/Intake and Output Vital Signs (last 24 hours): Temp Pulse Resp BP Pulse Ox 99 F 102 H 21 127/79 95 09/08/17 20:00 09/08/17 22:06 09/08/17 22:06 09/08/17 22:06 09/08/17 22:06 Intake and Output: 09/08/17 09/09/17 18:59 06:59 Intake Total 1145 536.8 Output Total 1950 1400 Balance -805 -863.2 - Medications Medications: Current Medications Collagenase (Santyl) 0 gm TOP DAILY [facility] [place] Last Admin: 09/07/17 10:38 Dose: Not Given Ferrous Gluconate (Fergon) 324 mg PO TID [facility] [place] Last Admin: 09/08/17 22:08 Dose: 324 mg Vancomycin/Sodium Chloride (Vancomycin 1 Gm/Ns 200 Ml) 1 gm in 200 mls @ 166.6 mls/hr IVPB Q12H [facility] PRN Reason: Protocol Stop: 09/10/17 12:01 Last Admin: 09/08/17 11:32 Dose: 166.6 mls/hr Heparin Sodium/Sodium Chloride (Heparin 20289 Units/250ml 1/2 Normal Saline) 25 ,000 units in 250 mls @ 5 mls/hr IV STAT STA PRN Reason: 500 UNIT/HR Stop: 09/09/17 13:15 Last Admin: 09/07/17 17:10 Dose: Not Given Heparin Sodium/Sodium Chloride (Heparin 13523 Units/250ml 1/2 Normal Saline) 25 ,000 units in 250 mls @ 5 mls/hr IV .Q24H PRN PRN Reason: PROTOCOL Last Admin: 09/07/17 17:05 Dose: 5 mls/hr Heparin Sodium/Sodium Chloride (Heparin 15983 Units/250ml 1/2 Normal Saline) 25 ,000 units in 250 mls @ 5 mls/hr IV .Q24H PRN PRN Reason: PROTOCOL Last Admin: 09/07/17 17:09 Dose: 5 mls/hr Ibuprofen (Motrin Tab) 600 mg PO Q12H PRN PRN Reason: Pain, Mild (1-3) Last Admin: 09/06/17 17:28 Dose: 600 mg Lisinopril (Zestril) 5 mg PO DAILY [facility] [place] Last Admin: 09/08/17 22:08 Dose: 5 mg Pantoprazole Sodium (Protonix Ec Tab) 40 mg PO DAILY [facility] [place] Last Admin: 09/08/17 22:08 Dose: 40 mg - Labs Labs: 09/08/17 20:02 09/08/17 05:59 PT 16.7 SECONDS (9.7-12.2) H 09/08/17 20:02 INR 1.5 09/08/17 20:02 APTT 53 SECONDS (21-34) H D 09/08/17 20:02 - Constitutional Appears: Chronically Ill - Head Exam Head Exam: NORMOCEPHALIC - Eye Exam Eye Exam: Normal appearance Pupil Exam: NORMAL ACCOMODATION - ENT Exam ENT Exam: Normal Exam - Neck Exam Neck Exam: Normal Inspection - Respiratory Exam Respiratory Exam: Decreased Breath Sounds - Cardiovascular Exam Cardiovascular Exam: REGULAR RHYTHM - Rectal Exam Rectal Exam: Deferred - Exam Exam: NORMAL INSPECTION - Extremities Exam Extremities Exam: Tenderness - Back Exam Back Exam: NORMAL INSPECTION - Neurological Exam Neurological Exam: Oriented x3 - Psychiatric Exam Psychiatric exam: Depressed - Skin Skin Exam: Dry Assessment and Plan (1) Degenerative joint disease Status: Acute (2) Hypertension Status: Acute (3) Obesity Status: Chronic (4) Peripheral vascular disease of lower extremity with ulceration Status: Acute (5) IVC thrombosis Status: Acute (6) 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
[2017-09-09 01:19] LABS: HEMOGLOBIN 10.8 g/dL (12.0-18.0); MEAN CELL VOLUME 85.9 fL (80.0-94.0); MEAN CORPUSCULAR HEMOGLOBIN 29.9 pg (27.0-31.0); MEAN CORPUSCULAR HGB CONC 34.8 g/dL (33.0-37.0); MEAN PLATELET VOLUME 7.3 fL (7.2-11.7); RBC 3.6 Mil/uL (4.40-5.90); RED CELL DISTRIBUTION WIDTH 14.2 % (11.5-14.5); WHITE BLOOD COUNT 10.7 K/uL (4.8-10.8)
[2017-09-09] MEDS: Collagenase 250 Units/gm Ointment(30 gm) TOP SCH ×2 (04:35→09:48)
[2017-09-09] MEDS: Heparin25000 units/250ml 1/2NS 25,000 UNITS/250 ML BAG IV PRN (04:42)
[2017-09-09] MEDS ORDERED: Sodium Chloride 0.9% 500 ML IV ONE (06:32)
[2017-09-09 06:33] LABS: BASO # 0.1 K/uL (0.0-0.2); BASO % 0.7 % (0.0-2.0); EOS # 0.1 K/uL (0.0-0.7); EOS % 0.7 % (0.0-4.0); HEMOGLOBIN 10.1 g/dL (12.0-18.0); LYMPH # 0.8 K/uL (1.0-4.3); LYMPH % 7.9 % (20.0-40.0); MEAN CELL VOLUME 86.4 fL (80.0-94.0); MEAN CORPUSCULAR HEMOGLOBIN 29.9 pg (27.0-31.0); MEAN CORPUSCULAR HGB CONC 34.5 g/dL (33.0-37.0); MEAN PLATELET VOLUME 7.2 fL (7.2-11.7); MONO # 1.2 K/uL (0.0-0.8); MONO % 12.2 % (0.0-10.0); NEUT % 78.5 % (50.0-75.0); PLATELET COUNT 350 K/uL (130-400); RBC 3.38 Mil/uL (4.40-5.90); RED CELL DISTRIBUTION WIDTH 14.3 % (11.5-14.5); WHITE BLOOD COUNT 10.2 K/uL (4.8-10.8)
[2017-09-09] MEDS: Sodium Chloride 0.9% 1,000 ML IV SCH ×2 (06:39→15:19)
[2017-09-09 07:04] LABS: ALB/GLOB RATIO 0.7 (1.0-2.1); ALBUMIN 2.8 g/dL (3.5-5.0); ALT/SGPT 11 U/L (21-72); AST/SGOT 26 U/L (17-59); BLOOD UREA NITROGEN 19 mg/dL (9-20); CALCIUM 8.3 mg/dl (8.6-10.4); GFR AFRICAN-AMERICAN > 60; GFR NON-AFRICAN AMERICAN > 60
[2017-09-09 09:02] LABS: BANDS 1 % (0-2); LYMPHOCYTE 7 % (20-40); MONOCYTE 10 % (0-10); TOTAL CELLS COUNTED 100
[2017-09-09 09:03] LABS: NEUTROPHIL 82 % (50-75); PLATELET ESTIMATE NORMAL (NORMAL)
[2017-09-09 09:04] LABS: ANISOCYTOSIS SLIGHT
--- NOTE | 2017-09-09 09:42 | CP.PCM.PN ---
Subjective - Date & Time of Evaluation Date of Evaluation: 09/09/17 Time of Evaluation: 09:42 - Subjective Subjective: Podiatry Progress note for Dr. Peres 52 year old male was seen at bedside for chronic non-healing wounds. Patient resting comfortably, NAD. Patient refusing dressing change by podiatry today secondary to pain in back/upper extremities/lower extremities; states dressings were changed by nursing at 04:30 this AM. Dressings remain clean/dry/intact to bilateral LE. Denies N/V/F/D/C/SOB/QUINONEZ/dizziness. Objective - Vital Signs/Intake and Output Vital Signs (last 24 hours): Temp Pulse Resp BP Pulse Ox 98.4 F 89 23 95/51 L 91 L 09/09/17 08:00 09/09/17 09:00 09/09/17 09:00 09/09/17 08:39 09/09/17 09:00 Intake and Output: 09/09/17 09/09/17 06:59 18:59 Intake Total 3399.6 299.4 Output Total 1800 Balance 1599.6 299.4 - Medications Medications: Current Medications Collagenase (Santyl) 0 gm TOP DAILY [facility] Last Admin: 09/09/17 04:35 Dose: 2 applic Ferrous Gluconate (Fergon) 324 mg PO TID [facility] Last Admin: 09/08/17 22:08 Dose: 324 mg Vancomycin/Sodium Chloride (Vancomycin 1 Gm/Ns 200 Ml) 1 gm in 200 mls @ 166.6 mls/hr IVPB Q12H [facility]OMMY PRN Reason: Protocol Stop: 09/10/17 12:01 Last Admin: 09/08/17 23:58 Dose: 166.6 mls/hr Heparin Sodium/Sodium Chloride (Heparin 42051 Units/250ml 1/2 Normal Saline) 25 ,000 units in 250 mls @ 24.75 mls/hr IV .Q10H7M PRN; Protocol; 18 UNITS/KG/HR PRN Reason: PROTOCOL Last Admin: 09/09/17 04:42 Dose: 18 units/kg/hr, 24.75 mls/hr Sodium Chloride (Sodium Chloride 0.9%) 1,000 mls @ 50 mls/hr IV .Q20H [facility] Last Admin: 09/09/17 06:39 Dose: 50 mls/hr Ibuprofen (Motrin Tab) 600 mg PO Q12H PRN PRN Reason: Pain, Mild (1-3) Last Admin: 09/06/17 17:28 Dose: 600 mg Pantoprazole Sodium (Protonix Ec Tab) 40 mg PO DAILY [facility] Last Admin: 09/08/17 22:08 Dose: 40 mg - Labs Labs: 09/09/17 06:30 09/09/17 06:30 PT 16.7 SECONDS (9.7-12.2) H 09/08/17 20:02 INR 1.5 09/08/17 20:02 APTT 49 SECONDS (21-34) H D 09/09/17 06:30 - Constitutional Appears: Well, Non-toxic, No Acute Distress - Extremities Exam Additional comments: Dressings to bilateral LE clean/dry/intact. - Neurological Exam Neurological Exam: Alert, Awake, Oriented x3 - Psychiatric Exam Psychiatric exam: Normal Affect, Normal Mood Assessment and Plan - Assessment and Plan (Free Text) Assessment: 52 year old male with bilateral chronic non-healing wounds Plan: Patient seen and evaluated Discussed with attending, Dr. 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 Prince yesterday wound culture- strep viridans Continue local wound care: saline cleanse, santyl, telfa, DSD, WILLARD -Patient refusing dressing change despite maximal encouragement Podiatry will continue to follow
[2017-09-09] MEDS: Pantoprazole 40 mg EC Tab PO SCH (09:48)
[2017-09-09] MEDS: Vancomycin 1 gm/NS 200 ml 1 GM/200 ML BAG IVPB SCH ×2 (12:25→23:11)
--- NOTE | 2017-09-09 13:30 | CP.PCM.PN ---
Subjective - Date & Time of Evaluation Date of Evaluation: 09/08/17 Time of Evaluation: 18:30 - Subjective Subjective: s/p bilateral venogram and successful venous stenting Objective - Vital Signs/Intake and Output Vital Signs (last 24 hours): Temp Pulse Resp BP Pulse Ox 98.4 F 91 H 24 106/61 94 L 09/09/17 08:00 09/09/17 11:00 09/09/17 11:00 09/09/17 10:43 09/09/17 11:00 Intake and Output: 09/09/17 09/09/17 06:59 18:59 Intake Total 3399.6 668.8 Output Total 1800 650 Balance 1599.6 18.8 - Medications Medications: Current Medications Collagenase (Santyl) 0 gm TOP DAILY [facility] Last Admin: 09/09/17 09:48 Dose: Not Given Ferrous Gluconate (Fergon) 324 mg PO TID [facility] Last Admin: 09/09/17 09:48 Dose: 324 mg Vancomycin/Sodium Chloride (Vancomycin 1 Gm/Ns 200 Ml) 1 gm in 200 mls @ 166.6 mls/hr IVPB Q12H TOMMY PRN Reason: Protocol Stop: 09/10/17 12:01 Last Admin: 09/09/17 12:25 Dose: 166.6 mls/hr Heparin Sodium/Sodium Chloride (Heparin 24354 Units/250ml 1/2 Normal Saline) 25 ,000 units in 250 mls @ 24.75 mls/hr IV .Q10H7M PRN; Protocol; 18 UNITS/KG/HR PRN Reason: PROTOCOL Last Admin: 09/09/17 04:42 Dose: 18 units/kg/hr, 24.75 mls/hr Sodium Chloride (Sodium Chloride 0.9%) 1,000 mls @ 50 mls/hr IV .Q20H [facility] Last Admin: 09/09/17 06:39 Dose: 50 mls/hr Ibuprofen (Motrin Tab) 600 mg PO Q12H PRN PRN Reason: Pain, Mild (1-3) Last Admin: 09/06/17 17:28 Dose: 600 mg Pantoprazole Sodium (Protonix Ec Tab) 40 mg PO DAILY [facility] Last Admin: 09/09/17 09:48 Dose: 40 mg - Labs Labs: 09/09/17 06:30 09/09/17 06:30 PT 16.7 SECONDS (9.7-12.2) H 09/08/17 20:02 INR 1.5 09/08/17 20:02 APTT 49 SECONDS (21-34) H D 09/09/17 06:30 - Constitutional Appears: Well - Head Exam Head Exam: ATRAUMATIC, NORMAL INSPECTION, NORMOCEPHALIC - Eye Exam Eye Exam: EOMI, Normal appearance, PERRL Pupil Exam: NORMAL ACCOMODATION, PERRL - ENT Exam ENT Exam: Mucous Membranes Moist, Normal Exam - Neck Exam Neck Exam: Full ROM, Normal Inspection. absent: Lymphadenopathy - Respiratory Exam Respiratory Exam: Clear to Ausculation Bilateral, NORMAL BREATHING PATTERN - Cardiovascular Exam Cardiovascular Exam: REGULAR RHYTHM, +S1, +S2, Murmur - GI/Abdominal Exam GI & Abdominal Exam: Soft, Normal Bowel Sounds. absent: Tenderness - Extremities Exam Extremities Exam: Full ROM, Normal Capillary Refill, Normal Inspection. absent : Joint Swelling, Pedal Edema - Back Exam Back Exam: NORMAL INSPECTION - Neurological Exam Neurological Exam: Alert, Awake, CN II-XII Intact, Oriented x3 - Psychiatric Exam Psychiatric exam: Normal Affect, Normal Mood - Skin Skin Exam: Dry, Intact, Normal Color, Warm Assessment and Plan (1) IVC thrombosis Assessment & Plan: s/p successful recanalization with VBX stenting will keep pt on OAC with eliquis 5mg po bid Successful recanalization and stenting of bilteral Common iliac and common femoral veins connecting thru thrombosed IVC filter with Viabahn covered stent Status: Acute (2) Hypertension Status: Acute (3) Infected stasis ulcer of left lower extremity Status: Acute (4) MRSA (methicillin resistant Staphylococcus aureus) infection Status: Acute (5) Ulcerated varicose veins of leg Status: Acute
[2017-09-09 14:22] LABS: BASO # 0.1 K/uL (0.0-0.2); BASO % 0.8 % (0.0-2.0); EOS # 0.1 K/uL (0.0-0.7); EOS % 1.5 % (0.0-4.0); HEMOGLOBIN 10.2 g/dL (12.0-18.0); LYMPH # 0.9 K/uL (1.0-4.3); LYMPH % 10.4 % (20.0-40.0); MEAN CELL VOLUME 86.4 fL (80.0-94.0); MEAN CORPUSCULAR HEMOGLOBIN 29.8 pg (27.0-31.0); MEAN CORPUSCULAR HGB CONC 34.5 g/dL (33.0-37.0); MEAN PLATELET VOLUME 7.5 fL (7.2-11.7); MONO % 11.5 % (0.0-10.0); NEUT # 6.3 K/uL (1.8-7.0); NEUT % 75.8 % (50.0-75.0); RBC 3.43 Mil/uL (4.40-5.90); RED CELL DISTRIBUTION WIDTH 14.3 % (11.5-14.5); WHITE BLOOD COUNT 8.2 K/uL (4.8-10.8)
--- NOTE | 2017-09-09 15:39 | CP.PCM.PN ---
Subjective - Date & Time of Evaluation Date of Evaluation: 09/09/17 Time of Evaluation: 10:00 - Subjective Subjective: 52 year old male was seen at bedside for chronic non-healing wounds. Patient resting comfortably, NAD. Objective - Vital Signs/Intake and Output Vital Signs (last 24 hours): Temp Pulse Resp BP Pulse Ox 99.5 F 89 18 96/55 L 97 09/09/17 12:00 09/09/17 15:06 09/09/17 15:06 09/09/17 15:06 09/09/17 15:00 Intake and Output: 09/09/17 09/09/17 06:59 18:59 Intake Total 3399.6 1417.6 Output Total 1800 1450 Balance 1599.6 -32.4 - Medications Medications: Current Medications Apixaban (Eliquis) 5 mg PO DAILY [facility] Last Admin: 09/09/17 15:02 Dose: 5 mg Clopidogrel Bisulfate (Plavix) 75 mg PO DAILY [facility] Last Admin: 09/09/17 15:02 Dose: 75 mg Collagenase (Santyl) 0 gm TOP DAILY [facility] Last Admin: 09/09/17 09:48 Dose: Not Given Famotidine (Pepcid) 20 mg PO BID [facility] Ferrous Gluconate (Fergon) 324 mg PO TID [facility] Last Admin: 09/09/17 14:24 Dose: 324 mg Vancomycin/Sodium Chloride (Vancomycin 1 Gm/Ns 200 Ml) 1 gm in 200 mls @ 166.6 mls/hr IVPB Q12H [facility]OMMY PRN Reason: Protocol Stop: 09/10/17 12:01 Last Admin: 09/09/17 12:25 Dose: 166.6 mls/hr Heparin Sodium/Sodium Chloride (Heparin 77265 Units/250ml 1/2 Normal Saline) 25 ,000 units in 250 mls @ 24.75 mls/hr IV .Q10H7M PRN; Protocol; 18 UNITS/KG/HR PRN Reason: PROTOCOL Last Admin: 09/09/17 04:42 Dose: 18 units/kg/hr, 24.75 mls/hr Sodium Chloride (Sodium Chloride 0.9%) 1,000 mls @ 50 mls/hr IV .Q20H [facility] Last Admin: 09/09/17 15:19 Dose: Not Given Ibuprofen (Motrin Tab) 600 mg PO Q12H PRN PRN Reason: Pain, Mild (1-3) Last Admin: 09/06/17 17:28 Dose: 600 mg - Labs Labs: 09/09/17 14:09 09/09/17 06:30 PT 16.7 SECONDS (9.7-12.2) H 09/08/17 20:02 INR 1.5 09/08/17 20:02 APTT 49 SECONDS (21-34) H D 09/09/17 06:30 - Constitutional Appears: Non-toxic, Chronically Ill - Head Exam Head Exam: NORMOCEPHALIC - Eye Exam Eye Exam: PERRL - ENT Exam ENT Exam: Mucous Membranes Dry - Neck Exam Neck Exam: absent: Lymphadenopathy - Respiratory Exam Respiratory Exam: Decreased Breath Sounds - Cardiovascular Exam Cardiovascular Exam: REGULAR RHYTHM - GI/Abdominal Exam GI & Abdominal Exam: Distended, Diminished Bowel Sounds - Rectal Exam Rectal Exam: Deferred - Exam Exam: NORMAL INSPECTION - Extremities Exam Extremities Exam: Pedal Edema - Back Exam Back Exam: absent: CVA tenderness (L), CVA tenderness (R) - Neurological Exam Neurological Exam: Alert, Awake Assessment and Plan (1) Diabetic ulcer of ankle Status: Acute (2) Anemia Status: Acute (3) Bilateral cellulitis of lower leg Status: Acute (4) Bilateral leg ulcer Status: Deleted (5) Cellulitis Status: Acute (6) Chronic cutaneous venous stasis ulcer Status: Acute (7) Congestive heart failure due to high blood pressure Status: Acute (8) Coronary artery disease Status: Acute (9) Hypertension Status: Acute (10) Sleep apnea Status: Acute (11) Obesity Status: Chronic - Assessment and Plan (Free Text) Assessment: cont wound care/ IV antibiotics
--- NOTE | 2017-09-09 20:10 | CP.CCUPN ---
CCU Subjective - Physician Review Events Since Last Encounter (Free Text): 09/09/17 20:09 Patient is lying on the bed. Complaining of stiff was generalized. More stiffness in the legs noted. His having difficulty moving the legs. Patient underwent extensive thrombo-lysis, and also stenting in the iliac veins by the santa's helper. Patient has ecchymosis. Also minimal bleeding in the right testicular area from the abrasion. CCU Objective - Vital Signs / Intake & Output Vital Signs (Last 4 hours): Vital Signs Temp Pulse Resp BP Pulse Ox 09/09/17 20:00 98.3 F 91 H 25 H 95 09/09/17 19:36 88 26 H 102/51 L 96 09/09/17 19:06 89 19 95/57 L 100 09/09/17 19:00 93 H 22 99 09/09/17 18:36 88 20 101/56 L 09/09/17 18:06 93 H 22 99/53 L 96 09/09/17 18:00 93 H 23 96/65 L 98 09/09/17 17:36 99 H 15 96/65 L 95 09/09/17 17:06 90 28 H 99/59 L 92 L 09/09/17 17:00 89 26 H 97 09/09/17 16:36 86 27 H 96/60 L 94 L Intake and Output (Last 8hrs): Intake & Output 09/09/17 09/09/17 09/09/17 06:59 14:59 22:59 Intake Total 2862.8 1192.9 1524.1 Output Total 675 912 2338 Balance 2462.8 217.9 -625.9 Weight 313 lb 313 lb Intake: IV 250 Intake, IV Amount 1292.8 622.9 1274.1 R forearm 217.8 172.9 74.1 Right Forearm 2250 906 4334 Oral 1320 570 250 Output: Urine 996 083 4971 Urine, Voided [phone] Other: # Voids Urine, Voided 0 1 # Bowel Movements 0 0 - Physical Exam Narrative Physical Exam (Free Text): 09/09/17 20:09 Chest good air entry bilaterally irregular heart though nontender abdomen eczema and is diffuse edema noted Head: Positive for: Atraumatic, Normocephalic Extroacular Muscles: Positive for: EOMI Conjunctiva: Positive for: Normal Mouth: Positive for: Moist Mucous Membranes Nose (External): Positive for: Atraumatic Nose (Internal): Positive for: Normal Inspection Respiratory/Chest: Positive for: Clear to Auscultation Cardiovascular: Positive for: Regular Rate and Rhythm, Normal S1, S2 Abdomen: Positive for: Normal Bowel Sounds. Negative for: Tenderness Upper Extremity: Positive for: Normal Inspection Lower Extremity: Positive for: Other (B/L Lower extremity Ulcer. Dressing Clean , Dry, and Intact. Ethos Catheter in R Femoral. No Erythema, Bleeding from Catheter Site. ). Negative for: Normal Inspection Neurological: Positive for: GCS=15 Skin: Positive for: Warm. Negative for: Erythematous - Medications Active Medications: Active Medications Generic Name Dose Route Start Last Admin Trade Name Freq PRN Reason Stop Dose Admin Apixaban 5 mg 09/09/17 15:00 09/09/17 15:02 Eliquis PO 5 mg DAILY [facility] Administration Clopidogrel Bisulfate 75 mg 09/09/17 15:00 09/09/17 15:02 Plavix PO 75 mg DAILY [facility] Administration Collagenase 0 gm 08/28/17 15:15 09/09/17 09:48 Santyl TOP Not Given DAILY [facility] Famotidine 20 mg 09/10/17 10:00 Pepcid PO BID [facility] Ferrous Gluconate 324 mg 08/28/17 18:00 09/09/17 18:02 Fergon PO 324 mg TID [facility] Administration Vancomycin/Sodium Chloride 1 gm in 200 mls @ 166.6 mls/hr 09/05/17 12:00 04/17 12:25 Vancomycin 1 Gm/Ns 200 Ml IVPB 09/10/17 12:01 166.6 mls/hr Q12H [facility] Administration Protocol Sodium Chloride 1,000 mls @ 50 mls/hr 09/08/17 18:45 09/09/17 15:19 Sodium Chloride 0.9% IV Not Given .Q20H [facility]OM[facility] Ibuprofen 600 mg 08/29/17 11:16 09/06/17 17:28 Motrin Tab PO 600 mg Q12H PRN Administration Pain, Mild (1-3) - Patient Studies Lab Studies: Microbiology Studies 09/05/17 14:50 Blood Culture - Preliminary Blood-Venous NO GROWTH AFTER 4 DAYS 09/05/17 13:46 Blood Culture - Preliminary Blood-Venous NO GROWTH AFTER 4 DAYS 09/07/17 18:20 MRSA Culture (Admit) - Final Nose MRSA NOT DETECTED Lab Studies 09/09/17 09/09/17 09/09/17 Range/Units 14:09 06:30 06:30 WBC 8.2 (4.8-10.8) K/uL RBC 3.43 L (4.40-5.90) Mil/uL Hgb 10.2 L (12.0-18.0) g/dL Hct 29.7 L (35.0-51.0) % MCV 86.4 (80.0-94.0) fL MCH 29.8 (27.0-31.0) pg MCHC 34.5 (33.0-37.0) g/dL RDW 14.3 (11.5-14.5) % Plt Count 330 (130-400) K/uL MPV 7.5 (7.2-11.7) fL Neut % (Auto) 75.8 H (50.0-75.0) % Lymph % (Auto) 10.4 L (20.0-40.0) % [place] % (Auto) 11.5 H (0.0-10.0) % Eos % (Auto) 1.5 (0.0-4.0) % Baso % (Auto) 0.8 (0.0-2.0) % Neut # (Auto) 6.3 (1.8-7.0) K/uL Lymph # (Auto) 0.9 L (1.0-4.3) K/uL [place] # (Auto) 1.0 H (0.0-0.8) K/uL Eos # (Auto) 0.1 (0.0-0.7) K/uL Baso # (Auto) 0.1 (0.0-0.2) K/uL Neutrophils % (Manual) (50-75) % Band Neutrophils % (0-2) % Lymphocytes % (Manual) (20-40) % Monocytes % (Manual) (0-10) % Platelet Estimate (NORMAL) Anisocytosis (manual) PT (9.7-12.2) SECONDS INR APTT 49 H D (21-34) SECONDS Sodium 133 (132-148) mmol/L Potassium 4.1 (3.6-5.2) mmol/L Chloride 100 (98-107) mmol/L Carbon Dioxide 22 (22-30) mmol/L Anion Gap 15 (10-20) BUN 19 (9-20) mg/dL Creatinine 0.9 (0.8-1.5) mg/dL Est GFR ( Amer) > 60 Est GFR (Non-Af Amer) > 60 Random Glucose 113 H (75-110) mg/dL Calcium 8.3 L (8.6-10.4) mg/dl Phosphorus 4.3 (2.5-4.5) mg/dL Magnesium 2.1 (1.6-2.3) mg/dL Total Bilirubin 1.0 (0.2-1.3) mg/dL AST 26 (17-59) U/L ALT 11 L D (21-72) U/L Alkaline Phosphatase 117 (38-126) U/L Total Protein 6.7 (6.3-8.3) g/dL Albumin 2.8 L (3.5-5.0) g/dL Globulin 3.9 (2.2-3.9) gm/dL Albumin/Globulin Ratio 0.7 L (1.0-2.1) 09/09/17 09/09/17 09/09/17 Range/Units 06:30 01:05 01:05 WBC 10.2 10.7 (4.8-10.8) K/uL RBC 3.38 L 3.60 L (4.40-5.90) Mil/uL Hgb 10.1 L 10.8 L (12.0-18.0) g/dL Hct 29.2 L 30.9 L (35.0-51.0) % MCV 86.4 85.9 (80.0-94.0) fL MCH 29.9 29.9 (27.0-31.0) pg MCHC 34.5 34.8 (33.0-37.0) g/dL RDW 14.3 14.2 (11.5-14.5) % Plt Count 350 368 (130-400) K/uL MPV 7.2 7.3 (7.2-11.7) fL Neut % (Auto) 78.5 H (50.0-75.0) % Lymph % (Auto) 7.9 L (20.0-40.0) % [place] % (Auto) 12.2 H (0.0-10.0) % Eos % (Auto) 0.7 (0.0-4.0) % Baso % (Auto) 0.7 (0.0-2.0) % Neut # (Auto) 8.0 H (1.8-7.0) K/uL Lymph # (Auto) 0.8 L (1.0-4.3) K/uL [place] # (Auto) 1.2 H (0.0-0.8) K/uL Eos # (Auto) 0.1 (0.0-0.7) K/uL Baso # (Auto) 0.1 (0.0-0.2) K/uL Neutrophils % (Manual) 82 H (50-75) % Band Neutrophils % 1 (0-2) % Lymphocytes % (Manual) 7 L (20-40) % Monocytes % (Manual) 10 (0-10) % Platelet Estimate Normal (NORMAL) Anisocytosis (manual) Slight PT (9.7-12.2) SECONDS INR APTT 54 H (21-34) SECONDS Sodium (132-148) mmol/L Potassium (3.6-5.2) mmol/L Chloride (98-107) mmol/L Carbon Dioxide (22-30) mmol/L Anion Gap (10-20) BUN (9-20) mg/dL Creatinine (0.8-1.5) mg/dL Est GFR ( Amer) Est GFR (Non-Af Amer) Random Glucose (75-110) mg/dL Calcium (8.6-10.4) mg/dl Phosphorus (2.5-4.5) mg/dL Magnesium (1.6-2.3) mg/dL Total Bilirubin (0.2-1.3) mg/dL AST (17-59) U/L ALT (21-72) U/L Alkaline Phosphatase (38-126) U/L Total Protein (6.3-8.3) g/dL Albumin (3.5-5.0) g/dL Globulin (2.2-3.9) gm/dL Albumin/Globulin Ratio (1.0-2.1) 09/08/17 09/08/17 Range/Units 20:02 20:02 WBC 13.8 H (4.8-10.8) K/uL RBC 3.90 L (4.40-5.90) Mil/uL Hgb 11.6 L (12.0-18.0) g/dL Hct 34.1 L (35.0-51.0) % MCV 87.4 (80.0-94.0) fL MCH 29.7 (27.0-31.0) pg MCHC 34.0 (33.0-37.0) g/dL RDW 14.2 (11.5-14.5) % Plt Count 370 (130-400) K/uL MPV 7.3 (7.2-11.7) fL Neut % (Auto) (50.0-75.0) % Lymph % (Auto) (20.0-40.0) % [place] % (Auto) (0.0-10.0) % Eos % (Auto) (0.0-4.0) % Baso % (Auto) (0.0-2.0) % Neut # (Auto) (1.8-7.0) K/uL Lymph # (Auto) (1.0-4.3) K/uL [place] # (Auto) (0.0-0.8) K/uL Eos # (Auto) (0.0-0.7) K/uL Baso # (Auto) (0.0-0.2) K/uL Neutrophils % (Manual) (50-75) % Band Neutrophils % (0-2) % Lymphocytes % (Manual) (20-40) % Monocytes % (Manual) (0-10) % Platelet Estimate (NORMAL) Anisocytosis (manual) PT 16.7 H (9.7-12.2) SECONDS INR 1.5 APTT 53 H D (21-34) SECONDS Sodium (132-148) mmol/L Potassium (3.6-5.2) mmol/L Chloride (98-107) mmol/L Carbon Dioxide (22-30) mmol/L Anion Gap (10-20) BUN (9-20) mg/dL Creatinine (0.8-1.5) mg/dL Est GFR ( Amer) Est GFR (Non-Af Amer) Random Glucose (75-110) mg/dL Calcium (8.6-10.4) mg/dl Phosphorus (2.5-4.5) mg/dL Magnesium (1.6-2.3) mg/dL Total Bilirubin (0.2-1.3) mg/dL AST (17-59) U/L ALT (21-72) U/L Alkaline Phosphatase (38-126) U/L Total Protein (6.3-8.3) g/dL Albumin (3.5-5.0) g/dL Globulin (2.2-3.9) gm/dL Albumin/Globulin Ratio (1.0-2.1) Laboratory Results - last 24 hr 09/08/17 09/08/17 09/09/17 20:02 20:02 01:05 WBC 13.8 H 10.7 RBC 3.90 L 3.60 L Hgb 11.6 L 10.8 L Hct 34.1 L 30.9 L MCV 87.4 85.9 MCH 29.7 29.9 MCHC 34.0 34.8 RDW 14.2 14.2 Plt Count 370 368 MPV 7.3 7.3 Neut % (Auto) Lymph % (Auto) [place] % (Auto) Eos % (Auto) Baso % (Auto) Neut # (Auto) Lymph # (Auto) [place] # (Auto) Eos # (Auto) Baso # (Auto) Neutrophils % (Manual) Band Neutrophils % Lymphocytes % (Manual) Monocytes % (Manual) Platelet Estimate Anisocytosis (manual) PT 16.7 H INR 1.5 APTT 53 H D Sodium Potassium Chloride Carbon Dioxide Anion Gap BUN Creatinine Est GFR ( Amer) Est GFR (Non-Af Amer) Random Glucose Calcium Phosphorus Magnesium Total Bilirubin AST ALT Alkaline Phosphatase Total Protein Albumin Globulin Albumin/Globulin Ratio 09/09/17 09/09/17 09/09/17 01:05 06:30 06:30 WBC 10.2 RBC 3.38 L Hgb 10.1 L Hct 29.2 L MCV 86.4 MCH 29.9 MCHC 34.5 RDW 14.3 Plt Count 350 MPV 7.2 Neut % (Auto) 78.5 H Lymph % (Auto) 7.9 L [place] % (Auto) 12.2 H Eos % (Auto) 0.7 Baso % (Auto) 0.7 Neut # (Auto) 8.0 H Lymph # (Auto) 0.8 L [place] # (Auto) 1.2 H Eos # (Auto) 0.1 Baso # (Auto) 0.1 Neutrophils % (Manual) 82 H Band Neutrophils % 1 Lymphocytes % (Manual) 7 L Monocytes % (Manual) 10 Platelet Estimate Normal Anisocytosis (manual) Slight PT INR APTT 54 H Sodium 133 Potassium 4.1 Chloride 100 Carbon Dioxide 22 Anion Gap 15 BUN 19 Creatinine 0.9 Est GFR ( Amer) > 60 Est GFR (Non-Af Amer) > 60 Random Glucose 113 H Calcium 8.3 L Phosphorus 4.3 Magnesium 2.1 Total Bilirubin 1.0 AST 26 ALT 11 L D Alkaline Phosphatase 117 Total Protein 6.7 Albumin 2.8 L Globulin 3.9 Albumin/Globulin Ratio 0.7 L 09/09/17 09/09/17 06:30 14:09 WBC 8.2 RBC 3.43 L Hgb 10.2 L Hct 29.7 L MCV 86.4 MCH 29.8 MCHC 34.5 RDW 14.3 Plt Count 330 MPV 7.5 Neut % (Auto) 75.8 H Lymph % (Auto) 10.4 L [place] % (Auto) 11.5 H Eos % (Auto) 1.5 Baso % (Auto) 0.8 Neut # (Auto) 6.3 Lymph # (Auto) 0.9 L [place] # (Auto) 1.0 H Eos # (Auto) 0.1 Baso # (Auto) 0.1 Neutrophils % (Manual) Band Neutrophils % Lymphocytes % (Manual) Monocytes % (Manual) Platelet Estimate Anisocytosis (manual) PT INR APTT 49 H D Sodium Potassium Chloride Carbon Dioxide Anion Gap BUN Creatinine Est GFR ( Amer) Est GFR (Non-Af Amer) Random Glucose Calcium Phosphorus Magnesium Total Bilirubin AST ALT Alkaline Phosphatase Total Protein Albumin Globulin Albumin/Globulin Ratio Critical Care Progress Note - Nutrition Nutrition: Nutrition Category Date Time Status Heart Healthy Diet [DIET] Diets 09/07/17 Dinner Active Assessment/Plan (1) Cellulitis of both feet Assessment and plan: Patient with this severe cellulitis. Deep venous thrombosis, thrombolysis, IVC filter. Patient also has stenting. on anticoagulation Overall prognosis is guarded. Current Visit: Yes Status: Acute (2) IVC thrombosis Current Visit: Yes Status: Acute
--- NOTE | 2017-09-09 23:08 | CP.PCM.PN ---
Subjective - Date & Time of Evaluation Date of Evaluation: 09/09/17 Time of Evaluation: 16:30 - Subjective Subjective: Patient is alert and responsive. He complains of stiffness in the lower extremities. Patient under went trombolysis and stenting proceedure. Objective - Vital Signs/Intake and Output Vital Signs (last 24 hours): Temp Pulse Resp BP Pulse Ox 98.3 F 98 H 17 93/51 L 94 L 09/09/17 20:00 09/09/17 21:00 09/09/17 21:00 09/09/17 20:50 09/09/17 21:00 Intake and Output: 09/09/17 09/10/17 18:59 06:59 Intake Total 2317.0 300 Output Total 1925 1200 Balance 392.0 -900 - Medications Medications: Current Medications Apixaban (Eliquis) 5 mg PO DAILY [facility] Last Admin: 09/09/17 15:02 Dose: 5 mg Clopidogrel Bisulfate (Plavix) 75 mg PO DAILY [facility] Last Admin: 09/09/17 15:02 Dose: 75 mg Collagenase (Santyl) 0 gm TOP DAILY [facility] Last Admin: 09/09/17 09:48 Dose: Not Given Famotidine (Pepcid) 20 mg PO BID [facility] Ferrous Gluconate (Fergon) 324 mg PO TID [facility] Last Admin: 09/09/17 18:02 Dose: 324 mg Vancomycin/Sodium Chloride (Vancomycin 1 Gm/Ns 200 Ml) 1 gm in 200 mls @ 166.6 mls/hr IVPB Q12H [facility] PRN Reason: Protocol Stop: 09/10/17 12:01 Last Admin: 09/09/17 12:25 Dose: 166.6 mls/hr Sodium Chloride (Sodium Chloride 0.9%) 1,000 mls @ 50 mls/hr IV .Q20H [facility] Last Admin: 09/09/17 15:19 Dose: Not Given Ibuprofen (Motrin Tab) 600 mg PO Q12H PRN PRN Reason: Pain, Mild (1-3) Last Admin: 09/06/17 17:28 Dose: 600 mg - Labs Labs: 09/09/17 14:09 09/09/17 06:30 PT 16.7 SECONDS (9.7-12.2) H 09/08/17 20:02 INR 1.5 09/08/17 20:02 APTT 49 SECONDS (21-34) H D 09/09/17 06:30 - Constitutional Appears: Chronically Ill - Head Exam Head Exam: NORMOCEPHALIC - Eye Exam Eye Exam: Normal appearance Pupil Exam: NORMAL ACCOMODATION - ENT Exam ENT Exam: Normal Exam - Neck Exam Neck Exam: Normal Inspection - Respiratory Exam Respiratory Exam: Decreased Breath Sounds - Cardiovascular Exam Cardiovascular Exam: REGULAR RHYTHM - GI/Abdominal Exam GI & Abdominal Exam: Normal Bowel Sounds - Rectal Exam Rectal Exam: Deferred - Exam Exam: NORMAL INSPECTION - Extremities Exam Extremities Exam: Tenderness - Back Exam Back Exam: NORMAL INSPECTION - Neurological Exam Neurological Exam: Oriented x3 - Psychiatric Exam Psychiatric exam: Depressed - Skin Skin Exam: Dry Assessment and Plan (1) Degenerative joint disease Status: Acute (2) Hypertension Status: Acute (3) Obesity Status: Chronic (4) Peripheral vascular disease of lower extremity with ulceration Status: Acute (5) IVC thrombosis Status: Acute (6) 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
[2017-09-10] MEDS: Sodium Chloride 0.9% 1,000 ML IV SCH ×2 (06:21→10:18)
[2017-09-10 06:45] LABS: BASO # 0.1 K/uL (0.0-0.2); EOS # 0.2 K/uL (0.0-0.7); EOS % 2.7 % (0.0-4.0); HEMOGLOBIN 9.6 g/dL (12.0-18.0); LYMPH # 0.9 K/uL (1.0-4.3); LYMPH % 11.2 % (20.0-40.0); MEAN CELL VOLUME 86.3 fL (80.0-94.0); MEAN CORPUSCULAR HEMOGLOBIN 29.6 pg (27.0-31.0); MEAN CORPUSCULAR HGB CONC 34.3 g/dL (33.0-37.0); MEAN PLATELET VOLUME 7.4 fL (7.2-11.7); MONO # 0.8 K/uL (0.0-0.8); MONO % 10.4 % (0.0-10.0); NEUT # 5.8 K/uL (1.8-7.0); NEUT % 74.7 % (50.0-75.0); RBC 3.23 Mil/uL (4.40-5.90); RED CELL DISTRIBUTION WIDTH 14.3 % (11.5-14.5); WHITE BLOOD COUNT 7.8 K/uL (4.8-10.8)
[2017-09-10 07:10] LABS: ALB/GLOB RATIO 0.7 (1.0-2.1); ALBUMIN 2.7 g/dL (3.5-5.0); ALT/SGPT 16 U/L (21-72); AST/SGOT 17 U/L (17-59); BLOOD UREA NITROGEN 17 mg/dL (9-20); CALCIUM 8.5 mg/dl (8.6-10.4); GFR AFRICAN-AMERICAN > 60; GFR NON-AFRICAN AMERICAN > 60
[2017-09-10] MEDS: Collagenase 250 Units/gm Ointment(30 gm) TOP SCH (10:18)
--- NOTE | 2017-09-10 11:13 | CP.PCM.PN ---
Subjective - Date & Time of Evaluation Date of Evaluation: 09/10/17 Time of Evaluation: 11:13 - Subjective Subjective: Podiatry Progress note for Dr. Peres 52 year old male was seen at bedside for chronic non-healing wounds. Patient resting comfortably, NAD. No acute events overnight. Patient reports continued upper and lower extremity pain R>L s/p vascular intervention. Patient denies any pain around his wounds. Dressings remain clean/dry/intact to bilateral LE. Denies N/V/F/D/C/SOB/QUINONEZ/dizziness. Objective - Vital Signs/Intake and Output Vital Signs (last 24 hours): Temp Pulse Resp BP Pulse Ox 98 F 82 12 107/59 L 100 09/10/17 08:00 09/10/17 08:02 09/10/17 08:02 09/10/17 08:02 09/10/17 08:02 Intake and Output: 09/10/17 09/10/17 06:59 18:59 Intake Total 1880 400 Output Total 3500 600 Balance -1620 -200 - Medications Medications: Current Medications Apixaban (Eliquis) 5 mg PO DAILY [facility] Last Admin: 09/10/17 10:17 Dose: 5 mg Clopidogrel Bisulfate (Plavix) 75 mg PO DAILY [facility] Last Admin: 09/10/17 10:17 Dose: 75 mg Collagenase (Santyl) 0 gm TOP DAILY [facility] Last Admin: 09/10/17 10:18 Dose: Not Given Famotidine (Pepcid) 20 mg PO BID [facility] Last Admin: 09/10/17 10:17 Dose: 20 mg Ferrous Gluconate (Fergon) 324 mg PO TID [facility] Last Admin: 09/10/17 10:17 Dose: 324 mg Vancomycin/Sodium Chloride (Vancomycin 1 Gm/Ns 200 Ml) 1 gm in 200 mls @ 166.6 mls/hr IVPB Q12H [facility] PRN Reason: Protocol Stop: 09/10/17 12:01 Last Admin: 09/09/17 23:11 Dose: 166.6 mls/hr Sodium Chloride (Sodium Chloride 0.9%) 1,000 mls @ 50 mls/hr IV .Q20H [facility] Last Admin: 09/10/17 10:18 Dose: Not Given Ibuprofen (Motrin Tab) 600 mg PO Q12H PRN PRN Reason: Pain, Mild (1-3) Last Admin: 09/06/17 17:28 Dose: 600 mg - Labs Labs: 09/10/17 06:34 09/10/17 06:37 PT 16.7 SECONDS (9.7-12.2) H 09/08/17 20:02 INR 1.5 09/08/17 20:02 APTT 49 SECONDS (21-34) H D 09/09/17 06:30 - Constitutional Appears: Well, Non-toxic, No Acute Distress - Extremities Exam Additional comments: Lower extremity focused exam: Vasc: DP and PT pulses faintly palpable b/l. CFT > 3 seconds to all digits b/l. Skin temperature warm to warm from proximal to distal b/l. +1 pitting edema noted to bilateral LE. Derm: Full thickness ulceration noted to the anteriomedial aspect of the left leg measuring approximately 10 cm by 6 cm by 0.3 cm with an 80% granular and 20 % fibrotic base, mild amount of purulence present, moderate malodor noted. Full -thickness ulceration noted to the anteriomedial aspect of right leg measuring approximately 2 cm by 2 cm with 80% granular and 20% fibrotic base, mild purulence present, malodor noted. Periwound erythema noted b/l. Neuro: Gross sensation diminished b/l Ortho: Minimal tenderness to palpation leg wounds b/l. Pain upon ROM legs, R>L. - Neurological Exam Neurological Exam: Alert, Awake, Oriented x3 - Psychiatric Exam Psychiatric exam: Normal Affect, Normal Mood Assessment and Plan - Assessment and Plan (Free Text) Assessment: 52 year old male with bilateral chronic non-healing wounds Plan: Patient seen and evaluated Discussed with attending, Dr. Peres chart, labs,vitals reviewed;afebrile, WBC 7.8 Cont IV abx per ID L ankle pressure index of the LLE is non-diagnosic due to possible arterial wall calcifications LE venous duplex exam:chronic partial thrombosis of the right and left common femoral, femoral and poplietal veins with severe reduction of venous return Patient s/p vascular intervention with Dr. Prince wound culture- strep viridans Continue local wound care: saline cleanse, santyl, xeroform, DSD, WILLARD -Wounds appear to be improving Podiatry will continue to follow
[2017-09-10] MEDS: Vancomycin 1 gm/NS 200 ml 1 GM/200 ML BAG IVPB SCH (12:30)
--- NOTE | 2017-09-10 13:47 | CP.PCM.PN ---
Subjective - Date & Time of Evaluation Date of Evaluation: 09/10/17 Time of Evaluation: 13:47 - Subjective Subjective: Patient had no acute events overnight. Patient has joint pain/stiffness ("i have had this for long time") Objective - Vital Signs/Intake and Output Vital Signs (last 24 hours): Temp Pulse Resp BP Pulse Ox 99.4 F 87 18 113/73 97 09/10/17 12:00 09/10/17 13:00 09/10/17 13:00 09/10/17 12:51 09/10/17 13:00 Intake and Output: 09/10/17 09/10/17 06:59 18:59 Intake Total 1880 1200 Output Total 3500 1700 Balance -1620 -500 - Medications Medications: Current Medications Apixaban (Eliquis) 5 mg PO DAILY [facility] Last Admin: 09/10/17 10:17 Dose: 5 mg Clopidogrel Bisulfate (Plavix) 75 mg PO DAILY [facility] Last Admin: 09/10/17 10:17 Dose: 75 mg Collagenase (Santyl) 0 gm TOP DAILY [facility] Last Admin: 09/10/17 10:18 Dose: Not Given Famotidine (Pepcid) 20 mg PO BID [facility] Last Admin: 09/10/17 10:17 Dose: 20 mg Ferrous Gluconate (Fergon) 324 mg PO TID [facility] Last Admin: 09/10/17 13:43 Dose: 324 mg Sodium Chloride (Sodium Chloride 0.9%) 1,000 mls @ 50 mls/hr IV .Q20H [facility] Last Admin: 09/10/17 10:18 Dose: Not Given Ibuprofen (Motrin Tab) 600 mg PO Q12H PRN PRN Reason: Pain, Mild (1-3) Last Admin: 09/06/17 17:28 Dose: 600 mg - Labs Labs: 09/10/17 06:34 09/10/17 06:37 PT 16.7 SECONDS (9.7-12.2) H 09/08/17 20:02 INR 1.5 09/08/17 20:02 APTT 49 SECONDS (21-34) H D 09/09/17 06:30 - Head Exam Head Exam: ATRAUMATIC, NORMAL INSPECTION - ENT Exam ENT Exam: Mucous Membranes Moist - Respiratory Exam Respiratory Exam: NORMAL BREATHING PATTERN - Cardiovascular Exam Cardiovascular Exam: REGULAR RHYTHM, +S1, +S2 - GI/Abdominal Exam GI & Abdominal Exam: Normal Bowel Sounds - Extremities Exam Extremities Exam: Pedal Edema - Neurological Exam Neurological Exam: Alert, Awake, CN II-XII Intact Assessment and Plan - Assessment and Plan (Free Text) Assessment: 52yo M. PMHx HTN, VICENTE, HLD, pulm HTN, obesity, chronic DVT of bilateral lower extremitites, IVC filter placement (2009). p/w infected heel ulcers, was found to have a completely thrombosed IVC Filter, that had EKOS catheter placed through it for clot dissolution. -Choronic DVT: continue AC, monitor for bleeding -Neuro: alert and oriented x 3, ibuporofen for pain. -Anemia:continue to monitor transfuse if hemodynamically instable. -Pulm: no acute issues, breathing spontaneously on room air -CV: hemodynamically stable -no groin bleeding post EKOS -chronic venous stasis ulcer: wound care as per protocol -wound care groin area -normal renal function tolerating oral diet ID: continue abx as per ID, de-escalate abx DVT proph - eliquis GI proph - protonix Code status - full code PT/OT Patient remains hemodyanmically stable
--- NOTE | 2017-09-10 19:01 | CP.PCM.PN ---
Subjective - Date & Time of Evaluation Date of Evaluation: 09/10/17 Time of Evaluation: 16:35 - Subjective Subjective: Patient oriented in all three spheres. Complains of joint stiffness. He denies any chest pain or shortness of breath. Objective - Vital Signs/Intake and Output Vital Signs (last 24 hours): Temp Pulse Resp BP Pulse Ox 99.4 F 86 21 97/67 L 96 09/10/17 12:00 09/10/17 14:00 09/10/17 14:00 09/10/17 13:51 09/10/17 14:00 Intake and Output: 09/10/17 09/10/17 06:59 18:59 Intake Total 1880 1300 Output Total 3500 2000 Balance -1620 -700 - Medications Medications: Current Medications Apixaban (Eliquis) 5 mg PO DAILY [facility] Last Admin: 09/10/17 10:17 Dose: 5 mg Clopidogrel Bisulfate (Plavix) 75 mg PO DAILY [facility] Last Admin: 09/10/17 10:17 Dose: 75 mg Collagenase (Santyl) 0 gm TOP DAILY [facility] Last Admin: 09/10/17 10:18 Dose: Not Given Famotidine (Pepcid) 20 mg PO BID [facility] Last Admin: 09/10/17 18:40 Dose: 20 mg Ferrous Gluconate (Fergon) 324 mg PO TID [facility] Last Admin: 09/10/17 18:40 Dose: 324 mg Sodium Chloride (Sodium Chloride 0.9%) 1,000 mls @ 50 mls/hr IV .Q20H [facility] Last Admin: 09/10/17 10:18 Dose: Not Given Ibuprofen (Motrin Tab) 600 mg PO Q12H PRN PRN Reason: Pain, Mild (1-3) Last Admin: 09/06/17 17:28 Dose: 600 mg - Labs Labs: 09/10/17 06:34 09/10/17 06:37 PT 16.7 SECONDS (9.7-12.2) H 09/08/17 20:02 INR 1.5 09/08/17 20:02 APTT 49 SECONDS (21-34) H D 09/09/17 06:30 - Constitutional Appears: No Acute Distress - Head Exam Head Exam: NORMOCEPHALIC - Eye Exam Eye Exam: Normal appearance Pupil Exam: NORMAL ACCOMODATION - ENT Exam ENT Exam: Normal Exam - Neck Exam Neck Exam: Normal Inspection - Respiratory Exam Respiratory Exam: Decreased Breath Sounds - Cardiovascular Exam Cardiovascular Exam: REGULAR RHYTHM - GI/Abdominal Exam GI & Abdominal Exam: Hyperactive Bowel Sounds - Rectal Exam Rectal Exam: Deferred - Exam Exam: NORMAL INSPECTION - Extremities Exam Extremities Exam: Tenderness - Back Exam Back Exam: NORMAL INSPECTION - Neurological Exam Neurological Exam: Oriented x3 - Psychiatric Exam Psychiatric exam: Normal Affect - Skin Skin Exam: Dry Assessment and Plan (1) Degenerative joint disease Status: Acute (2) Hypertension Status: Acute (3) Obesity Status: Chronic (4) Peripheral vascular disease of lower extremity with ulceration Status: Acute (5) IVC thrombosis Status: Acute (6) 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
[2017-09-11 06:44] LABS: BASO # 0.1 K/uL (0.0-0.2); EOS # 0.2 K/uL (0.0-0.7); EOS % 2.8 % (0.0-4.0); HEMOGLOBIN 9.8 g/dL (12.0-18.0); LYMPH # 0.7 K/uL (1.0-4.3); LYMPH % 10.1 % (20.0-40.0); MEAN CELL VOLUME 86.4 fL (80.0-94.0); MEAN CORPUSCULAR HEMOGLOBIN 30.4 pg (27.0-31.0); MEAN CORPUSCULAR HGB CONC 35.2 g/dL (33.0-37.0); MEAN PLATELET VOLUME 7.4 fL (7.2-11.7); MONO # 0.8 K/uL (0.0-0.8); MONO % 10.7 % (0.0-10.0); NEUT # 5.4 K/uL (1.8-7.0); NEUT % 75.4 % (50.0-75.0); RBC 3.24 Mil/uL (4.40-5.90); RED CELL DISTRIBUTION WIDTH 14.5 % (11.5-14.5); WHITE BLOOD COUNT 7.2 K/uL (4.8-10.8)
[2017-09-11 07:02] LABS: ALB/GLOB RATIO 0.7 (1.0-2.1); ALBUMIN 2.8 g/dL (3.5-5.0); ALT/SGPT 9 U/L (21-72); AST/SGOT 17 U/L (17-59); BLOOD UREA NITROGEN 16 mg/dL (9-20); GFR AFRICAN-AMERICAN > 60; GFR NON-AFRICAN AMERICAN > 60
--- NOTE | 2017-09-11 09:38 | CP.PCM.PN ---
Subjective - Date & Time of Evaluation Date of Evaluation: 09/09/17 Time of Evaluation: 17:00 - Subjective Subjective: stiffness of LE s/p thrombolysis/stenting of IVD and bilateral iliacs Objective - Vital Signs/Intake and Output Vital Signs (last 24 hours): Temp Pulse Resp BP Pulse Ox 98.8 F 85 22 106/64 94 L 09/11/17 08:00 09/11/17 09:00 09/11/17 09:00 09/11/17 08:51 09/11/17 09:00 Intake and Output: 09/11/17 09/11/17 06:59 18:59 Intake Total 1270 280 Output Total 2250 0 Balance -980 280 - Medications Medications: Current Medications Apixaban (Eliquis) 5 mg PO DAILY [facility] Last Admin: 09/10/17 10:17 Dose: 5 mg Clopidogrel Bisulfate (Plavix) 75 mg PO DAILY [facility] Last Admin: 09/10/17 10:17 Dose: 75 mg Collagenase (Santyl) 0 gm TOP DAILY [facility] Last Admin: 09/10/17 10:18 Dose: Not Given Famotidine (Pepcid) 20 mg PO BID [facility] Last Admin: 09/10/17 18:40 Dose: 20 mg Ferrous Gluconate (Fergon) 324 mg PO TID [facility] Last Admin: 09/10/17 18:40 Dose: 324 mg Ibuprofen (Motrin Tab) 600 mg PO Q12H PRN PRN Reason: Pain, Mild (1-3) Last Admin: 09/06/17 17:28 Dose: 600 mg - Labs Labs: 09/11/17 06:33 09/11/17 06:33 PT 16.7 SECONDS (9.7-12.2) H 09/08/17 20:02 INR 1.5 09/08/17 20:02 APTT 49 SECONDS (21-34) H D 09/09/17 06:30 - Constitutional Appears: Well - Head Exam Head Exam: ATRAUMATIC, NORMAL INSPECTION, NORMOCEPHALIC - Eye Exam Eye Exam: EOMI, Normal appearance, PERRL Pupil Exam: NORMAL ACCOMODATION, PERRL - ENT Exam ENT Exam: Mucous Membranes Moist, Normal Exam - Neck Exam Neck Exam: Full ROM, Normal Inspection. absent: Lymphadenopathy - Respiratory Exam Respiratory Exam: Clear to Ausculation Bilateral, NORMAL BREATHING PATTERN - Cardiovascular Exam Cardiovascular Exam: REGULAR RHYTHM, +S1, +S2. absent: Murmur - GI/Abdominal Exam GI & Abdominal Exam: Soft, Normal Bowel Sounds. absent: Tenderness - Extremities Exam Extremities Exam: Normal Capillary Refill, Pedal Edema. absent: Joint Swelling Additional comments: bilateral ulcers - Back Exam Back Exam: NORMAL INSPECTION - Neurological Exam Neurological Exam: Alert, Awake, CN II-XII Intact, Normal Gait, Oriented x3 - Psychiatric Exam Psychiatric exam: Normal Affect, Normal Mood - Skin Skin Exam: Dry, Intact, Normal Color, Warm Assessment and Plan (1) IVC thrombosis Assessment & Plan: s/p IVC stenting and thrombolysis cont AC eliquis and plavix Status: Acute (2) Hypertension Assessment & Plan: low dose acei Status: Acute (3) Infected stasis ulcer of left lower extremity Status: Acute (4) MRSA (methicillin resistant Staphylococcus aureus) infection Status: Acute (5) Ulcerated varicose veins of leg Status: Acute
--- NOTE | 2017-09-11 11:12 | CP.PCM.PN ---
Subjective - Date & Time of Evaluation Date of Evaluation: 09/11/17 Time of Evaluation: 10:03 - Subjective Subjective: Podiatry Progress note for Dr. Peres 52 year old male was seen at bedside for chronic non-healing wounds. Patient is resting comfortably, NAD. No acute events overnight. Patient admits continued upper and lower extremity pain R>L s/p vascular intervention. Patient denies any pain around his wounds. Dressings remain clean/dry/intact to bilateral LE. Denies N/V/F/D/C/SOB/QUINONEZ/dizziness. Objective - Vital Signs/Intake and Output Vital Signs (last 24 hours): Temp Pulse Resp BP Pulse Ox 98.8 F 85 22 106/64 94 L 09/11/17 08:00 09/11/17 09:00 09/11/17 09:00 09/11/17 08:51 09/11/17 09:00 Intake and Output: 09/11/17 09/11/17 06:59 18:59 Intake Total 1270 280 Output Total 2250 0 Balance -980 280 - Medications Medications: Current Medications Apixaban (Eliquis) 5 mg PO DAILY [facility] Last Admin: 09/11/17 09:35 Dose: 5 mg Clopidogrel Bisulfate (Plavix) 75 mg PO DAILY [facility] Last Admin: 09/11/17 09:35 Dose: 75 mg Collagenase (Santyl) 0 gm TOP DAILY [facility] Last Admin: 09/10/17 10:18 Dose: Not Given Famotidine (Pepcid) 20 mg PO BID [facility] Last Admin: 09/11/17 09:35 Dose: 20 mg Ferrous Gluconate (Fergon) 324 mg PO TID [facility] Last Admin: 09/11/17 09:35 Dose: 324 mg Ibuprofen (Motrin Tab) 600 mg PO Q12H PRN PRN Reason: Pain, Mild (1-3) Last Admin: 09/06/17 17:28 Dose: 600 mg - Labs Labs: 09/11/17 06:33 09/11/17 06:33 PT 16.7 SECONDS (9.7-12.2) H 09/08/17 20:02 INR 1.5 09/08/17 20:02 APTT 49 SECONDS (21-34) H D 09/09/17 06:30 - Constitutional Appears: Well, Non-toxic, No Acute Distress - Head Exam Head Exam: ATRAUMATIC - Extremities Exam Additional comments: Lower extremity focused exam: DERM: LEFT: Full thickness ulceration noted to the anterio medial aspect of the left leg measuring approximately 10 cm by 6 cm by 0.3 cm with an 90% granular and 10 % fibrotic base, mild amount of purulence present, moderate malodor noted. RIGHT: Full-thickness ulceration noted to the anteriomedial aspect of right leg measuring approximately 2 cm by 2 cm with 90% granular and 10% fibrotic base, mild purulence present, malodor noted. Periwound erythema noted b/l. Vasc: DP and PT pulses faintly palpable b/l. CFT > 3 seconds to all digits b/l. Skin temperature warm to warm from proximal to distal b/l. +1 pitting edema noted to bilateral LE. Neuro: Gross sensation diminished b/l Ortho: Minimal tenderness to palpation leg wounds b/l. Pain upon ROM legs, R>L. - Neurological Exam Neurological Exam: Alert, Awake, Oriented x3 - Psychiatric Exam Psychiatric exam: Normal Affect, Normal Mood - Skin Skin Exam: Normal Color, Warm Assessment and Plan - Assessment and Plan (Free Text) Assessment: 52 year old male with chronic non-healing wounds to bilateral legs Plan: Patient seen and evaluated Discussed with attending, Dr. Peres chart, labs,vitals reviewed;afebrile, WBC 7.2 Cont IV abx per ID L ankle pressure index of the LLE is non-diagnosic due to possible arterial wall calcifications LE venous duplex exam:chronic partial thrombosis of the right and left common femoral, femoral and poplietal veins with severe reduction of venous return Patient s/p vascular intervention with Dr. Prince wound culture- strep viridans, (-) for MRSA Continue local wound care: saline cleanse, xeroform, DSD, WILLARD Podiatry will continue to follow
[2017-09-11] MEDS: Collagenase 250 Units/gm Ointment(30 gm) TOP SCH ×2 (12:00→14:19)
--- NOTE | 2017-09-11 12:14 | CP.CCUPN ---
CCU Subjective - Physician Review Events Since Last Encounter (Free Text): 09/11/17 12:12 Patient is lying on the bed. Complaining of stiff was generalized. More stiffness in the legs noted. His having difficulty moving the legs. Patient underwent extensive thrombo-lysis, and also stenting in the iliac veins by the [place] [employer] officer. Patient has ecchymosis. Also minimal bleeding in the right testicular area from the abrasion. patient is now awake and responding. sitting up in the Chair CCU Objective - Vital Signs / Intake & Output Vital Signs (Last 4 hours): Vital Signs Pulse Resp BP Pulse Ox 09/11/17 11:00 91 H 21 95 09/11/17 10:51 107 H 23 118/69 87 L 09/11/17 10:11 104 H 21 112/60 94 L 09/11/17 10:02 111 H 09/11/17 09:00 85 22 94 L 09/11/17 08:51 90 19 106/64 95 Intake and Output (Last 8hrs): Intake & Output 09/10/17 09/11/17 09/11/17 22:59 06:59 14:59 Intake Total 1380 440 360 Output Total 1300 1300 0 Balance 80 -860 360 Weight 277 lb Intake: Intake, IV Amount 450 Right Forearm 450 Oral 930 440 360 Output: Urine 1300 1300 Urine, Voided 1300 1300 Emesis 0 Other: # Bowel Movements 0 0 - Physical Exam Narrative Physical Exam (Free Text): 09/11/17 12:12 bilateral pedal edema Regular heart sound Nontender abdomen Head: Positive for: Atraumatic, Normocephalic Extroacular Muscles: Positive for: EOMI Conjunctiva: Positive for: Normal Mouth: Positive for: Moist Mucous Membranes Nose (External): Positive for: Atraumatic Nose (Internal): Positive for: Normal Inspection Respiratory/Chest: Positive for: Clear to Auscultation Cardiovascular: Positive for: Regular Rate and Rhythm, Normal S1, S2 Abdomen: Positive for: Normal Bowel Sounds. Negative for: Tenderness Upper Extremity: Positive for: Normal Inspection Lower Extremity: Positive for: Other (B/L Lower extremity Ulcer. Dressing Clean , Dry, and Intact. Ethos Catheter in R Femoral. No Erythema, Bleeding from Catheter Site. ). Negative for: Normal Inspection Neurological: Positive for: GCS=15 Skin: Positive for: Warm. Negative for: Erythematous - Medications Active Medications: Active Medications Generic Name Dose Route Start Last Admin Trade Name Freq PRN Reason Stop Dose Admin Apixaban 5 mg 09/09/17 15:00 09/11/17 09:35 Eliquis PO 5 mg DAILY [facility] Administration Clopidogrel Bisulfate 75 mg 09/09/17 15:00 09/11/17 09:35 Plavix PO 75 mg DAILY [facility] Administration Collagenase 0 gm 08/28/17 15:15 09/10/17 10:18 Santyl TOP Not Given DAILY [facility] Famotidine 20 mg 09/10/17 10:00 09/11/17 09:35 Pepcid PO 20 mg BID [facility] Administration Ferrous Gluconate 324 mg 08/28/17 18:00 09/11/17 09:35 Fergon PO 324 mg TID [facility] Administration Ibuprofen 600 mg 08/29/17 11:16 09/06/17 17:28 Motrin Tab PO 600 mg Q12H PRN Administration Pain, Mild (1-3) - Patient Studies Lab Studies: Microbiology Studies 09/05/17 14:50 Blood Culture - Final Blood-Venous NO GROWTH AFTER 5 DAYS 09/05/17 13:46 Blood Culture - Final Blood-Venous NO GROWTH AFTER 5 DAYS Lab Studies 09/11/17 09/11/17 Range/Units 06:33 06:33 WBC 7.2 (4.8-10.8) K/uL RBC 3.24 L (4.40-5.90) Mil/uL Hgb 9.8 L (12.0-18.0) g/dL Hct 28.0 L (35.0-51.0) % MCV 86.4 (80.0-94.0) fL MCH 30.4 (27.0-31.0) pg MCHC 35.2 (33.0-37.0) g/dL RDW 14.5 (11.5-14.5) % Plt Count 415 H (130-400) K/uL MPV 7.4 (7.2-11.7) fL Neut % (Auto) 75.4 H (50.0-75.0) % Lymph % (Auto) 10.1 L (20.0-40.0) % [place] % (Auto) 10.7 H (0.0-10.0) % Eos % (Auto) 2.8 (0.0-4.0) % Baso % (Auto) 1.0 (0.0-2.0) % Neut # (Auto) 5.4 (1.8-7.0) K/uL Lymph # (Auto) 0.7 L (1.0-4.3) K/uL [place] # (Auto) 0.8 (0.0-0.8) K/uL Eos # (Auto) 0.2 (0.0-0.7) K/uL Baso # (Auto) 0.1 (0.0-0.2) K/uL Sodium 138 (132-148) mmol/L Potassium 4.0 (3.6-5.2) mmol/L Chloride 101 (98-107) mmol/L Carbon Dioxide 26 (22-30) mmol/L Anion Gap 15 (10-20) BUN 16 (9-20) mg/dL Creatinine 0.8 (0.8-1.5) mg/dL Est GFR ( Amer) > 60 Est GFR (Non-Af Amer) > 60 Random Glucose 104 (75-110) mg/dL Calcium 8.0 L (8.6-10.4) mg/dl Phosphorus 4.4 (2.5-4.5) mg/dL Magnesium 2.0 (1.6-2.3) mg/dL Total Bilirubin 0.5 (0.2-1.3) mg/dL AST 17 (17-59) U/L ALT 9 L D (21-72) U/L Alkaline Phosphatase 89 (38-126) U/L Total Protein 6.9 (6.3-8.3) g/dL Albumin 2.8 L (3.5-5.0) g/dL Globulin 4.0 H (2.2-3.9) gm/dL Albumin/Globulin Ratio 0.7 L (1.0-2.1) Laboratory Results - last 24 hr 09/11/17 09/11/17 06:33 06:33 WBC 7.2 RBC 3.24 L Hgb 9.8 L Hct 28.0 L MCV 86.4 MCH 30.4 MCHC 35.2 RDW 14.5 Plt Count 415 H MPV 7.4 Neut % (Auto) 75.4 H Lymph % (Auto) 10.1 L [place] % (Auto) 10.7 H Eos % (Auto) 2.8 Baso % (Auto) 1.0 Neut # (Auto) 5.4 Lymph # (Auto) 0.7 L [place] # (Auto) 0.8 Eos # (Auto) 0.2 Baso # (Auto) 0.1 Sodium 138 Potassium 4.0 Chloride 101 Carbon Dioxide 26 Anion Gap 15 BUN 16 Creatinine 0.8 Est GFR ( Amer) > 60 Est GFR (Non-Af Amer) > 60 Random Glucose 104 Calcium 8.0 L Phosphorus 4.4 Magnesium 2.0 Total Bilirubin 0.5 AST 17 ALT 9 L D Alkaline Phosphatase 89 Total Protein 6.9 Albumin 2.8 L Globulin 4.0 H Albumin/Globulin Ratio 0.7 L Review of Systems - Review of Systems All systems: reviewed and no additional remarkable complaints except Critical Care Progress Note - Nutrition Nutrition: Nutrition Category Date Time Status Heart Healthy Diet [DIET] Diets 09/07/17 Dinner Active Assessment/Plan (1) Cellulitis of both feet Assessment and plan: Patient with this severe cellulitis. Deep venous thrombosis, thrombolysis, IVC filter. Patient also has stenting. on anticoagulation Overall prognosis is guarded. transferred to regular medical floor Current Visit: Yes Status: Acute (2) IVC thrombosis Current Visit: Yes Status: Acute
--- NOTE | 2017-09-11 13:40 | CP.PCM.PN ---
Subjective - Date & Time of Evaluation Date of Evaluation: 09/11/17 Time of Evaluation: 09:00 - Subjective Subjective: Patient underwent extensive thrombo-lysis, and also stenting in the iliac veins by the operator assistant i cementing. Patient has ecchymosis. Also minimal bleeding in the right testicular area from the abrasion. Objective - Vital Signs/Intake and Output Vital Signs (last 24 hours): Temp Pulse Resp BP Pulse Ox 98.8 F 91 H 21 118/69 95 09/11/17 08:00 09/11/17 11:00 09/11/17 11:00 09/11/17 10:51 09/11/17 11:00 Intake and Output: 09/11/17 09/11/17 06:59 18:59 Intake Total 1270 360 Output Total 2250 0 Balance -980 360 - Medications Medications: Current Medications Apixaban (Eliquis) 5 mg PO DAILY [facility] Last Admin: 09/11/17 09:35 Dose: 5 mg Clopidogrel Bisulfate (Plavix) 75 mg PO DAILY [facility] Last Admin: 09/11/17 09:35 Dose: 75 mg Collagenase (Santyl) 0 gm TOP DAILY [facility] Last Admin: 09/10/17 10:18 Dose: Not Given Famotidine (Pepcid) 20 mg PO BID [facility] Last Admin: 09/11/17 09:35 Dose: 20 mg Ferrous Gluconate (Fergon) 324 mg PO TID [facility] Last Admin: 09/11/17 09:35 Dose: 324 mg Ibuprofen (Motrin Tab) 600 mg PO Q12H PRN PRN Reason: Pain, Mild (1-3) Last Admin: 09/06/17 17:28 Dose: 600 mg - Labs Labs: 09/11/17 06:33 09/11/17 06:33 PT 16.7 SECONDS (9.7-12.2) H 09/08/17 20:02 INR 1.5 09/08/17 20:02 APTT 49 SECONDS (21-34) H D 09/09/17 06:30 - Constitutional Appears: Non-toxic, Chronically Ill - Head Exam Head Exam: NORMOCEPHALIC - Eye Exam Eye Exam: PERRL - ENT Exam ENT Exam: Mucous Membranes Dry - Neck Exam Neck Exam: absent: Lymphadenopathy - Respiratory Exam Respiratory Exam: Decreased Breath Sounds - Cardiovascular Exam Cardiovascular Exam: REGULAR RHYTHM - GI/Abdominal Exam GI & Abdominal Exam: Distended - Rectal Exam Rectal Exam: Deferred Assessment and Plan (1) Diabetic ulcer of ankle Status: Acute (2) Anemia Status: Acute (3) Bilateral cellulitis of lower leg Status: Acute (4) Bilateral leg ulcer Status: Deleted (5) Cellulitis Status: Acute (6) Chronic cutaneous venous stasis ulcer Status: Acute (7) Congestive heart failure due to high blood pressure Status: Acute (8) Coronary artery disease Status: Acute (9) Hypertension Status: Acute (10) Sleep apnea Status: Acute (11) Obesity Status: Chronic
[2017-09-11] MEDS: Vancomycin 1 gm/NS 200 ml 1 GM/200 ML BAG IVPB SCH (14:17)
[2017-09-12 07:36] LABS: BASO # 0.1 K/uL (0.0-0.2); BASO % 1.3 % (0.0-2.0); EOS # 0.2 K/uL (0.0-0.7); EOS % 2.5 % (0.0-4.0); HEMOGLOBIN 9.7 g/dL (12.0-18.0); LYMPH # 0.8 K/uL (1.0-4.3); MEAN CELL VOLUME 86.2 fL (80.0-94.0); MEAN CORPUSCULAR HEMOGLOBIN 29.7 pg (27.0-31.0); MEAN CORPUSCULAR HGB CONC 34.4 g/dL (33.0-37.0); MONO # 0.8 K/uL (0.0-0.8); MONO % 10.8 % (0.0-10.0); NEUT # 5.6 K/uL (1.8-7.0); NEUT % 74.4 % (50.0-75.0); RBC 3.26 Mil/uL (4.40-5.90); RED CELL DISTRIBUTION WIDTH 14.2 % (11.5-14.5); WHITE BLOOD COUNT 7.5 K/uL (4.8-10.8)
[2017-09-12 07:56] LABS: ALB/GLOB RATIO 0.7 (1.0-2.1); ALT/SGPT 12 U/L (21-72); AST/SGOT 13 U/L (17-59); BLOOD UREA NITROGEN 16 mg/dL (9-20); CALCIUM 8.8 mg/dl (8.6-10.4); GFR AFRICAN-AMERICAN > 60; GFR NON-AFRICAN AMERICAN > 60
--- NOTE | 2017-09-12 10:17 | CP.PCM.PN ---
Subjective - Date & Time of Evaluation Date of Evaluation: 09/12/17 Time of Evaluation: 10:17 - Subjective Subjective: granulation tissue on wounds seen improving Objective - Vital Signs/Intake and Output Vital Signs (last 24 hours): Temp Pulse Resp BP Pulse Ox 98.1 F 82 20 99/67 L 98 09/12/17 07:29 09/12/17 07:29 09/12/17 07:29 09/12/17 07:29 09/12/17 07:29 Intake and Output: 09/12/17 09/12/17 06:59 18:59 Intake Total 480 Output Total 650 Balance -170 - Medications Medications: Current Medications Apixaban (Eliquis) 5 mg PO DAILY [facility] Last Admin: 09/12/17 09:30 Dose: 5 mg Clopidogrel Bisulfate (Plavix) 75 mg PO DAILY [facility] Last Admin: 09/12/17 09:30 Dose: 75 mg Collagenase (Santyl) 0 gm TOP DAILY [facility] Last Admin: 09/11/17 14:19 Dose: 1 applic Famotidine (Pepcid) 20 mg PO BID [facility] Last Admin: 09/12/17 09:30 Dose: 20 mg Ferrous Gluconate (Fergon) 324 mg PO TID [facility] Last Admin: 09/12/17 09:30 Dose: 324 mg Vancomycin/Sodium Chloride (Vancomycin 1 Gm/Ns 200 Ml) 1 gm in 200 mls @ 133 mls/hr IVPB Q24H [facility] PRN Reason: Protocol Stop: 09/16/17 14:01 Last Admin: 09/11/17 14:17 Dose: 133 mls/hr Ibuprofen (Motrin Tab) 600 mg PO Q12H PRN PRN Reason: Pain, Mild (1-3) Last Admin: 09/06/17 17:28 Dose: 600 mg - Labs Labs: 09/12/17 07:29 09/12/17 07:29 PT 16.7 SECONDS (9.7-12.2) H 09/08/17 20:02 INR 1.5 09/08/17 20:02 APTT 49 SECONDS (21-34) H D 09/09/17 06:30 - Constitutional Appears: Well - Head Exam Head Exam: ATRAUMATIC, NORMAL INSPECTION, NORMOCEPHALIC - Eye Exam Eye Exam: EOMI, Normal appearance, PERRL Pupil Exam: NORMAL ACCOMODATION, PERRL - ENT Exam ENT Exam: Mucous Membranes Moist, Normal Exam - Neck Exam Neck Exam: Full ROM, Normal Inspection. absent: Lymphadenopathy - Respiratory Exam Respiratory Exam: Clear to Ausculation Bilateral, NORMAL BREATHING PATTERN - Cardiovascular Exam Cardiovascular Exam: REGULAR RHYTHM, +S1, +S2. absent: Murmur - GI/Abdominal Exam GI & Abdominal Exam: Soft, Normal Bowel Sounds. absent: Tenderness - Extremities Exam Extremities Exam: Full ROM, Normal Capillary Refill, Normal Inspection. 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
[2017-09-12] MEDS: Collagenase 250 Units/gm Ointment(30 gm) TOP SCH (12:30)
--- NOTE | 2017-09-12 12:35 | CP.PCM.PN ---
Subjective - Date & Time of Evaluation Date of Evaluation: 09/12/17 Time of Evaluation: 10:26 - Subjective Subjective: Podiatry Progress note for Dr. Peres 52 year old male was seen at bedside this morning for chronic non-healing wounds to bilateral legs. Patient is resting comfortably, NAD. No acute events overnight. Patient admits pain to bilateral knees, but denies of any pain to the sites of ulceration. Patient denies any pain around his wounds. Dressings remain clean/dry/intact to bilateral LE. Denies N/V/F/D/C/SOB/QUINONEZ/dizziness. Objective - Vital Signs/Intake and Output Vital Signs (last 24 hours): Temp Pulse Resp BP Pulse Ox 98.1 F 82 20 99/67 L 98 09/12/17 07:29 09/12/17 07:29 09/12/17 07:29 09/12/17 07:29 09/12/17 07:29 Intake and Output: 09/12/17 09/12/17 06:59 18:59 Intake Total 480 Output Total 650 Balance -170 - Medications Medications: Current Medications Apixaban (Eliquis) 5 mg PO DAILY [facility] Last Admin: 09/12/17 09:30 Dose: 5 mg Clopidogrel Bisulfate (Plavix) 75 mg PO DAILY [facility] Last Admin: 09/12/17 09:30 Dose: 75 mg Collagenase (Santyl) 0 gm TOP DAILY [facility] Last Admin: 09/11/17 14:19 Dose: 1 applic Famotidine (Pepcid) 20 mg PO BID [facility] Last Admin: 09/12/17 09:30 Dose: 20 mg Ferrous Gluconate (Fergon) 324 mg PO TID [facility] Last Admin: 09/12/17 09:30 Dose: 324 mg Vancomycin/Sodium Chloride (Vancomycin 1 Gm/Ns 200 Ml) 1 gm in 200 mls @ 133 mls/hr IVPB Q24H [facility] PRN Reason: Protocol Stop: 09/16/17 14:01 Last Admin: 09/11/17 14:17 Dose: 133 mls/hr Ibuprofen (Motrin Tab) 600 mg PO Q12H PRN PRN Reason: Pain, Mild (1-3) Last Admin: 09/06/17 17:28 Dose: 600 mg - Labs Labs: 09/12/17 07:29 09/12/17 07:29 PT 16.7 SECONDS (9.7-12.2) H 09/08/17 20:02 INR 1.5 09/08/17 20:02 APTT 49 SECONDS (21-34) H D 09/09/17 06:30 - Constitutional Appears: Well, Non-toxic, No Acute Distress - Head Exam Head Exam: ATRAUMATIC - Extremities Exam Additional comments: DERM: LEFT: Full thickness ulceration noted to the anterio medial aspect of the left leg measuring approximately 10 cm by 6 cm by 0.3 cm with an 90% granular and 10 % fibrotic base, mild amount of purulence present, moderate malodor noted. RIGHT: Full-thickness ulceration noted to the anteriomedial aspect of right leg measuring approximately 2 cm by 2 cm with 90% granular and 10% fibrotic base, mild purulence present, malodor noted. Periwound erythema noted b/l. Vasc: DP and PT pulses faintly palpable b/l. CFT > 3 seconds to all digits b/l. Skin temperature warm to warm from proximal to distal b/l. +1 pitting edema noted to bilateral LE. Neuro: Gross sensation diminished b/l Ortho: Minimal tenderness to palpation leg wounds b/l. Pain upon ROM legs, R>L. - Neurological Exam Neurological Exam: Alert, Awake, Normal Gait, Oriented x3 - Psychiatric Exam Psychiatric exam: Normal Affect, Normal Mood - Skin Skin Exam: Normal Color, Warm Assessment and Plan - Assessment and Plan (Free Text) Assessment: 52 year old male with chronic non-healing wounds to bilateral legs Plan: Patient seen and evaluated Discussed with attending, Dr. Peres chart, labs,vitals reviewed;afebrile, WBC 7.5 Cont IV abx per ID L ankle pressure index of the LLE is non-diagnosic due to possible arterial wall calcifications LE venous duplex exam:chronic partial thrombosis of the right and left common femoral, femoral and poplietal veins with severe reduction of venous return Patient s/p vascular intervention with Dr. Prince wound culture- strep viridans, (-) for MRSA Continue local wound care: saline cleanse, xeroform, DSD, WILLARD Podiatry will continue to follow
[2017-09-12] MEDS: Vancomycin 1 gm/NS 200 ml 1 GM/200 ML BAG IVPB SCH (13:32)
--- NOTE | 2017-09-12 22:15 | CP.PCM.PN ---
Subjective - Date & Time of Evaluation Date of Evaluation: 09/12/17 Time of Evaluation: 19:10 - Subjective Subjective: Patient oriented in all three spheres. Still has pain and stiffness in the lower extremities. He denies pain at the site of ulceratons. Continue antibiotic therapy. Objective - Vital Signs/Intake and Output Vital Signs (last 24 hours): Temp Pulse Resp BP Pulse Ox 98.7 F 86 20 115/72 98 09/12/17 15:55 09/12/17 15:55 09/12/17 15:55 09/12/17 15:55 09/12/17 15:55 Intake and Output: 09/12/17 09/13/17 18:59 06:59 Intake Total 650 Output Total 400 Balance 250 - Medications Medications: Current Medications Apixaban (Eliquis) 5 mg PO DAILY [facility] Last Admin: 09/12/17 09:30 Dose: 5 mg Clopidogrel Bisulfate (Plavix) 75 mg PO DAILY [facility] Last Admin: 09/12/17 09:30 Dose: 75 mg Collagenase (Santyl) 0 gm TOP DAILY [facility] Last Admin: 09/12/17 12:30 Dose: 1 applic Famotidine (Pepcid) 20 mg PO BID [facility] Last Admin: 09/12/17 17:15 Dose: 20 mg Ferrous Gluconate (Fergon) 324 mg PO TID [facility] Last Admin: 09/12/17 17:15 Dose: 324 mg Vancomycin/Sodium Chloride (Vancomycin 1 Gm/Ns 200 Ml) 1 gm in 200 mls @ 133 mls/hr IVPB Q24H [facility] PRN Reason: Protocol Stop: 09/16/17 14:01 Last Admin: 09/12/17 13:32 Dose: 133 mls/hr Ibuprofen (Motrin Tab) 600 mg PO Q12H PRN PRN Reason: Pain, Mild (1-3) Last Admin: 09/06/17 17:28 Dose: 600 mg - Labs Labs: 09/12/17 07:29 09/12/17 07:29 PT 16.7 SECONDS (9.7-12.2) H 09/08/17 20:02 INR 1.5 09/08/17 20:02 APTT 49 SECONDS (21-34) H D 09/09/17 06:30 - Constitutional Appears: Chronically Ill - Head Exam Head Exam: NORMOCEPHALIC - Eye Exam Eye Exam: Normal appearance Pupil Exam: NORMAL ACCOMODATION - ENT Exam ENT Exam: Normal Exam - Respiratory Exam Respiratory Exam: Decreased Breath Sounds - Cardiovascular Exam Cardiovascular Exam: REGULAR RHYTHM - GI/Abdominal Exam GI & Abdominal Exam: Normal Bowel Sounds - Rectal Exam Rectal Exam: Deferred - Exam Exam: NORMAL INSPECTION - Extremities Exam Extremities Exam: Tenderness - Back Exam Back Exam: NORMAL INSPECTION - Neurological Exam Neurological Exam: Oriented x3 - Psychiatric Exam Psychiatric exam: Depressed - Skin Skin Exam: Dry Assessment and Plan (1) Degenerative joint disease Status: Acute (2) Hypertension Status: Acute (3) Obesity Status: Chronic (4) Peripheral vascular disease of lower extremity with ulceration Status: Acute (5) IVC thrombosis Status: Acute (6) 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
[2017-09-13 07:26] LABS: BASO # 0.1 K/uL (0.0-0.2); BASO % 1.3 % (0.0-2.0); EOS # 0.2 K/uL (0.0-0.7); EOS % 1.9 % (0.0-4.0); HEMOGLOBIN 10.1 g/dL (12.0-18.0); LYMPH % 11.4 % (20.0-40.0); MEAN CELL VOLUME 85.7 fL (80.0-94.0); MEAN CORPUSCULAR HEMOGLOBIN 30.5 pg (27.0-31.0); MEAN CORPUSCULAR HGB CONC 35.6 g/dL (33.0-37.0); MEAN PLATELET VOLUME 7.1 fL (7.2-11.7); MONO # 0.9 K/uL (0.0-0.8); MONO % 10.2 % (0.0-10.0); NEUT # 6.5 K/uL (1.8-7.0); NEUT % 75.2 % (50.0-75.0); RBC 3.31 Mil/uL (4.40-5.90); RED CELL DISTRIBUTION WIDTH 14.3 % (11.5-14.5); WHITE BLOOD COUNT 8.7 K/uL (4.8-10.8)
[2017-09-13 07:57] LABS: ALB/GLOB RATIO 0.7 (1.0-2.1); ALT/SGPT 13 U/L (21-72); AST/SGOT 18 U/L (17-59); BLOOD UREA NITROGEN 15 mg/dL (9-20); CALCIUM 8.9 mg/dl (8.6-10.4); GFR AFRICAN-AMERICAN > 60; GFR NON-AFRICAN AMERICAN > 60
[2017-09-13] MEDS: Collagenase 250 Units/gm Ointment(30 gm) TOP SCH (09:28)
--- NOTE | 2017-09-13 11:29 | CP.PCM.PN ---
<Christo Mackay - Last Filed: 09/13/17 11:34> Subjective - Date & Time of Evaluation Date of Evaluation: 09/13/17 Time of Evaluation: 11:27 - Subjective Subjective: Christo Mackay PGY1 Cardiology Progress Note for Dr. Prince Patient was seen and examined at bedside. He is feeling well, tolerating diet and following the exercises prescribed for him. He denies chest pain, fevers/ chills, n/v/d, headaches, abdominal pain. Objective - Vital Signs/Intake and Output Vital Signs (last 24 hours): Temp Pulse Resp BP Pulse Ox 98.3 F 87 20 108/71 95 09/13/17 09:45 09/13/17 09:45 09/13/17 09:45 09/13/17 09:45 09/13/17 09:45 Intake and Output: 09/13/17 09/13/17 06:59 18:59 Intake Total 550 Output Total 600 Balance -50 - Medications Medications: Current Medications Apixaban (Eliquis) 5 mg PO DAILY [facility] Last Admin: 09/13/17 09:28 Dose: 5 mg Clopidogrel Bisulfate (Plavix) 75 mg PO DAILY [facility] Last Admin: 09/13/17 09:28 Dose: 75 mg Collagenase (Santyl) 0 gm TOP DAILY [facility] Last Admin: 09/13/17 09:28 Dose: Not Given Famotidine (Pepcid) 20 mg PO BID [facility] Last Admin: 09/13/17 09:28 Dose: 20 mg Ferrous Gluconate (Fergon) 324 mg PO TID [facility] Last Admin: 09/13/17 09:28 Dose: 324 mg Vancomycin/Sodium Chloride (Vancomycin 1 Gm/Ns 200 Ml) 1 gm in 200 mls @ 133 mls/hr IVPB Q24H [facility] PRN Reason: Protocol Stop: 09/16/17 14:01 Last Admin: 09/12/17 13:32 Dose: 133 mls/hr Ibuprofen (Motrin Tab) 600 mg PO Q12H PRN PRN Reason: Pain, Mild (1-3) Last Admin: 09/06/17 17:28 Dose: 600 mg - Labs Labs: 09/13/17 07:19 09/13/17 07:19 PT 16.7 SECONDS (9.7-12.2) H 05/11/18 20:02 INR 1.5 09/08/17 20:02 APTT 49 SECONDS (21-34) H D 09/09/17 06:30 - Additional Findings Additional findings: - Constitutional Appears: Well, Non-toxic, No Acute Distress - Head Exam Head Exam: NORMAL INSPECTION - Eye Exam Eye Exam: EOMI, Normal appearance - ENT Exam ENT Exam: Mucous Membranes Moist - Neck Exam Neck Exam: Full ROM - Respiratory Exam Respiratory Exam: Clear to Ausculation Bilateral, NORMAL BREATHING PATTERN. absent: Rales, Rhonchi, Wheezes - Cardiovascular Exam Cardiovascular Exam: RRR, +S1, +S2 - GI/Abdominal Exam GI & Abdominal Exam: Soft, Normal Bowel Sounds. 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 Plan: 1. Bilateral non-healing ulcers secondary to chronic partial thrombosis of the lower extremity venous circulation - s/p thrombolysis/stenting of IVD and bilateral iliacs - cont AC Eliquis and Plavix - cont Santyl - wound culture of LLE grew strep viridans - on Vancomycin - cont PT rehab 2. Prophlyaxis - pepcid Case reviewed and discussed with Dr. Prince <Jose Prince - Last Filed: 09/14/17 08:24> Objective - Vital Signs/Intake and Output Vital Signs (last 24 hours): Temp Pulse Resp BP Pulse Ox 98.4 F 90 20 110/73 94 L 09/14/17 07:35 09/14/17 07:35 09/14/17 07:35 09/14/17 07:35 09/14/17 07:35 Intake and Output: 09/14/17 09/14/17 06:59 18:59 Intake Total 200 Output Total 900 Balance -700 - Medications Medications: Current Medications Apixaban (Eliquis) 5 mg PO DAILY [facility] Last Admin: 09/13/17 09:28 Dose: 5 mg Clopidogrel Bisulfate (Plavix) 75 mg PO DAILY [facility] Last Admin: 09/13/17 09:28 Dose: 75 mg Collagenase (Santyl) 0 gm TOP DAILY [facility] Last Admin: 09/13/17 09:28 Dose: Not Given Famotidine (Pepcid) 20 mg PO BID [facility] Last Admin: 09/13/17 18:35 Dose: 20 mg Ferrous Gluconate (Fergon) 324 mg PO TID [facility] Last Admin: 09/13/17 18:35 Dose: 324 mg Vancomycin/Sodium Chloride (Vancomycin 1 Gm/Ns 200 Ml) 1 gm in 200 mls @ 133 mls/hr IVPB Q24H [facility] PRN Reason: Protocol Stop: 09/16/17 14:01 Last Admin: 09/13/17 14:21 Dose: 133 mls/hr Ibuprofen (Motrin Tab) 600 mg PO Q12H PRN PRN Reason: Pain, Mild (1-3) Last Admin: 09/06/17 17:28 Dose: 600 mg - Labs Labs: 09/13/17 07:19 09/13/17 07:19 PT 16.7 SECONDS (9.7-12.2) H 09/08/17 20:02 INR 1.5 09/08/17 20:02 APTT 49 SECONDS (21-34) H D 09/09/17 06:30 Assessment and Plan (1) IVC thrombosis Status: Acute (2) Hypertension Status: Acute (3) Infected stasis ulcer of left lower extremity Status: Acute (4) MRSA (methicillin resistant Staphylococcus aureus) infection Status: Acute (5) Ulcerated varicose veins of leg Status: Acute Attending/Attestation - Attestation I have personally seen and examined this patient.: Yes I have fully participated in the care of the patient.: Yes I have reviewed all pertinent clinical information, including history, physical exam and plan: Yes Notes (Text): 09/14/17 08:24 consider adding low dose acei and statins for modulating endothelial function
--- NOTE | 2017-09-13 14:17 | CP.PCM.PN ---
Subjective - Date & Time of Evaluation Date of Evaluation: 09/13/17 Time of Evaluation: 13:11 - Subjective Subjective: Podiatry Progress note for Dr. Peres 52 year old male was seen at bedside this morning for chronic non-healing wounds to bilateral legs. Patient is resting comfortably, NAD. No acute events overnight. Patient denies of any pain to the sites of ulceration. Patient admits pain to knees bilaterally. Dressings remain clean/dry/intact to bilateral LE. Denies N/V/F/D/C/SOB/QUINONEZ/dizziness. Objective - Vital Signs/Intake and Output Vital Signs (last 24 hours): Temp Pulse Resp BP Pulse Ox 98.3 F 87 20 108/71 95 09/13/17 09:45 09/13/17 09:45 09/13/17 09:45 09/13/17 09:45 09/13/17 09:45 Intake and Output: 09/13/17 09/13/17 06:59 18:59 Intake Total 550 Output Total 600 Balance -50 - Medications Medications: Current Medications Apixaban (Eliquis) 5 mg PO DAILY [facility] Last Admin: 09/13/17 09:28 Dose: 5 mg Clopidogrel Bisulfate (Plavix) 75 mg PO DAILY [facility] Last Admin: 09/13/17 09:28 Dose: 75 mg Collagenase (Santyl) 0 gm TOP DAILY [facility] Last Admin: 09/13/17 09:28 Dose: Not Given Famotidine (Pepcid) 20 mg PO BID [facility] Last Admin: 09/13/17 09:28 Dose: 20 mg Ferrous Gluconate (Fergon) 324 mg PO TID [facility] Last Admin: 09/13/17 09:28 Dose: 324 mg Vancomycin/Sodium Chloride (Vancomycin 1 Gm/Ns 200 Ml) 1 gm in 200 mls @ 133 mls/hr IVPB Q24H [facility] PRN Reason: Protocol Stop: 09/16/17 14:01 Last Admin: 09/12/17 13:32 Dose: 133 mls/hr Ibuprofen (Motrin Tab) 600 mg PO Q12H PRN PRN Reason: Pain, Mild (1-3) Last Admin: 09/06/17 17:28 Dose: 600 mg - Labs Labs: 09/13/17 07:19 09/13/17 07:19 PT 16.7 SECONDS (9.7-12.2) H 09/08/17 20:02 INR 1.5 09/08/17 20:02 APTT 49 SECONDS (21-34) H D 09/09/17 06:30 - Constitutional Appears: Well, Non-toxic, No Acute Distress - Head Exam Head Exam: ATRAUMATIC - Extremities Exam Additional comments: DERM: LEFT: Full thickness ulceration noted to the anterio medial aspect of the left leg measuring approximately 10 cm by 6 cm by 0.3 cm with an 90% granular and 10 % fibrotic base, mild amount of purulence present, moderate malodor noted. RIGHT: Full-thickness ulceration noted to the anteriomedial aspect of right leg measuring approximately 2 cm by 2 cm with 90% granular and 10% fibrotic base, mild purulence present, malodor noted. Periwound erythema noted b/l. Vasc: DP and PT pulses faintly palpable b/l. CFT > 3 seconds to all digits b/l. Skin temperature warm to warm from proximal to distal b/l. +1 pitting edema noted to bilateral LE. Neuro: Gross sensation diminished b/l Ortho: Minimal tenderness to palpation leg wounds b/l. Pain upon ROM legs, R>L. - Neurological Exam Neurological Exam: Alert, Awake, Oriented x3 - Psychiatric Exam Psychiatric exam: Normal Affect, Normal Mood - Skin Skin Exam: Normal Color, Warm Assessment and Plan - Assessment and Plan (Free Text) Assessment: 52 year old male with chronic non-healing wounds to bilateral legs Plan: Patient seen and evaluated Discussed with attending, Dr. Peres chart, labs,vitals reviewed;afebrile, WBC 8.7 Cont IV abx per ID L ankle pressure index of the LLE is non-diagnosic due to possible arterial wall calcifications LE venous duplex exam:chronic partial thrombosis of the right and left common femoral, femoral and poplietal veins with severe reduction of venous return Patient s/p vascular intervention with Dr. Prince wound culture- strep viridans, (-) for MRSA Continue local wound care: saline cleanse, xeroform, DSD, WILLARD Podiatry will continue to follow
[2017-09-13] MEDS: Vancomycin 1 gm/NS 200 ml 1 GM/200 ML BAG IVPB SCH (14:21)
--- NOTE | 2017-09-13 20:01 | CP.PCM.PN ---
Subjective - Date & Time of Evaluation Date of Evaluation: 09/13/17 Time of Evaluation: 09:00 - Subjective Subjective: no fever discussed on rounds will need to cont IV antibiotics - allergic to PCN Objective - Vital Signs/Intake and Output Vital Signs (last 24 hours): Temp Pulse Resp BP Pulse Ox 99.4 F 92 H 20 100/68 96 09/13/17 15:30 09/13/17 15:30 09/13/17 15:30 09/13/17 15:30 09/13/17 15:30 Intake and Output: 09/13/17 09/14/17 18:59 06:59 Intake Total 380 Balance 380 - Medications Medications: Current Medications Apixaban (Eliquis) 5 mg PO DAILY [facility] Last Admin: 09/13/17 09:28 Dose: 5 mg Clopidogrel Bisulfate (Plavix) 75 mg PO DAILY [facility] Last Admin: 09/13/17 09:28 Dose: 75 mg Collagenase (Santyl) 0 gm TOP DAILY [facility] Last Admin: 09/13/17 09:28 Dose: Not Given Famotidine (Pepcid) 20 mg PO BID [facility] Last Admin: 09/13/17 18:35 Dose: 20 mg Ferrous Gluconate (Fergon) 324 mg PO TID [facility] Last Admin: 09/13/17 18:35 Dose: 324 mg Vancomycin/Sodium Chloride (Vancomycin 1 Gm/Ns 200 Ml) 1 gm in 200 mls @ 133 mls/hr IVPB Q24H [facility] PRN Reason: Protocol Stop: 09/16/17 14:01 Last Admin: 09/13/17 14:21 Dose: 133 mls/hr Ibuprofen (Motrin Tab) 600 mg PO Q12H PRN PRN Reason: Pain, Mild (1-3) Last Admin: 09/06/17 17:28 Dose: 600 mg - Labs Labs: 09/13/17 07:19 09/13/17 07:19 PT 16.7 SECONDS (9.7-12.2) H 09/08/17 20:02 INR 1.5 09/08/17 20:02 APTT 49 SECONDS (21-34) H D 09/09/17 06:30 - Constitutional Appears: Non-toxic, Chronically Ill - Head Exam Head Exam: NORMOCEPHALIC - Eye Exam Eye Exam: PERRL - ENT Exam ENT Exam: Mucous Membranes Dry - Neck Exam Neck Exam: absent: Lymphadenopathy - Respiratory Exam Respiratory Exam: Decreased Breath Sounds - Cardiovascular Exam Cardiovascular Exam: REGULAR RHYTHM - GI/Abdominal Exam GI & Abdominal Exam: Distended - Rectal Exam Rectal Exam: Deferred - Back Exam Back Exam: absent: CVA tenderness (L), CVA tenderness (R) - Neurological Exam Neurological Exam: Alert - Psychiatric Exam Psychiatric exam: Depressed - Skin Additional comments: LEFT: Full thickness ulceration noted to the anterio medial aspect of the left leg measuring approximately 10 cm by 6 cm by 0.3 cm with an 90% granular and 10 % fibrotic base, mild amount of purulence present, moderate malodor noted. RIGHT: Full-thickness ulceration noted to the anteriomedial aspect of right leg measuring approximately 2 cm by 2 cm with 90% granular and 10% fibrotic base, mild purulence present, malodor noted. Periwound erythema noted b/l. Assessment and Plan (1) Diabetic ulcer of ankle Status: Acute (2) Anemia Status: Acute (3) Bilateral cellulitis of lower leg Status: Acute (4) Bilateral leg ulcer Status: Deleted (5) Cellulitis Status: Acute (6) Chronic cutaneous venous stasis ulcer Status: Acute (7) Congestive heart failure due to high blood pressure Status: Acute (8) Coronary artery disease Status: Acute (9) Hypertension Status: Acute (10) Sleep apnea Status: Acute (11) Obesity Status: Chronic - Assessment and Plan (Free Text) Assessment: cont Vanco min 7 days more will check Vanco level in am
--- NOTE | 2017-09-13 22:34 | CP.PCM.PN ---
Subjective - Date & Time of Evaluation Date of Evaluation: 09/13/17 Time of Evaluation: 19:20 - Subjective Subjective: Patient denies joint pain or numbness. He was evaluated by Dr Yang who suggests 7 more days of vancomycin. Objective - Vital Signs/Intake and Output Vital Signs (last 24 hours): Temp Pulse Resp BP Pulse Ox 99.4 F 92 H 20 100/68 96 09/13/17 15:30 09/13/17 15:30 09/13/17 15:30 09/13/17 15:30 09/13/17 15:30 Intake and Output: 09/13/17 09/14/17 18:59 06:59 Intake Total 380 Balance 380 - Medications Medications: Current Medications Apixaban (Eliquis) 5 mg PO DAILY [facility] Last Admin: 09/13/17 09:28 Dose: 5 mg Clopidogrel Bisulfate (Plavix) 75 mg PO DAILY [facility] Last Admin: 09/13/17 09:28 Dose: 75 mg Collagenase (Santyl) 0 gm TOP DAILY [facility] Last Admin: 09/13/17 09:28 Dose: Not Given Famotidine (Pepcid) 20 mg PO BID [facility] Last Admin: 09/13/17 18:35 Dose: 20 mg Ferrous Gluconate (Fergon) 324 mg PO TID [facility] Last Admin: 09/13/17 18:35 Dose: 324 mg Vancomycin/Sodium Chloride (Vancomycin 1 Gm/Ns 200 Ml) 1 gm in 200 mls @ 133 mls/hr IVPB Q24H [facility] PRN Reason: Protocol Stop: 09/16/17 14:01 Last Admin: 09/13/17 14:21 Dose: 133 mls/hr Ibuprofen (Motrin Tab) 600 mg PO Q12H PRN PRN Reason: Pain, Mild (1-3) Last Admin: 09/06/17 17:28 Dose: 600 mg - Labs Labs: 09/13/17 07:19 09/13/17 07:19 PT 16.7 SECONDS (9.7-12.2) H 09/08/17 20:02 INR 1.5 09/08/17 20:02 APTT 49 SECONDS (21-34) H D 09/09/17 06:30 - Constitutional Appears: No Acute Distress - Head Exam Head Exam: NORMOCEPHALIC - Eye Exam Eye Exam: Normal appearance Pupil Exam: NORMAL ACCOMODATION - ENT Exam ENT Exam: Normal Exam - Neck Exam Neck Exam: Normal Inspection - Respiratory Exam Respiratory Exam: Decreased Breath Sounds - Cardiovascular Exam Cardiovascular Exam: REGULAR RHYTHM - GI/Abdominal Exam GI & Abdominal Exam: Normal Bowel Sounds - Rectal Exam Rectal Exam: Deferred - Exam Exam: NORMAL INSPECTION - Extremities Exam Extremities Exam: Tenderness - Back Exam Back Exam: NORMAL INSPECTION - Neurological Exam Neurological Exam: Oriented x3 - Psychiatric Exam Psychiatric exam: Depressed - Skin Skin Exam: Dry Assessment and Plan (1) Degenerative joint disease Status: Acute (2) Hypertension Status: Acute (3) Obesity Status: Chronic (4) Peripheral vascular disease of lower extremity with ulceration Status: Acute (5) IVC thrombosis Status: Acute (6) 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
--- NOTE | 2017-09-14 08:38 | CP.PCM.PN ---
Subjective - Date & Time of Evaluation Date of Evaluation: 09/14/17 Time of Evaluation: 08:38 - Subjective Subjective: Christo Mackay PGY1 Cardiology Progress Note for Dr. Prince Patient was seen and examined at bedside. states that he did not sleep well last night but feeling well overall and following the exercises prescribed for him. He denies chest pain, fevers/chills, n/v/d, headaches, abdominal pain. Objective - Vital Signs/Intake and Output Vital Signs (last 24 hours): Temp Pulse Resp BP Pulse Ox 98.4 F 90 20 110/73 94 L 09/14/17 07:35 09/14/17 07:35 09/14/17 07:35 09/14/17 07:35 09/14/17 07:35 Intake and Output: 09/14/17 09/14/17 06:59 18:59 Intake Total 200 Output Total 900 Balance -700 - Medications Medications: Current Medications Apixaban (Eliquis) 5 mg PO DAILY [facility] Last Admin: 09/13/17 09:28 Dose: 5 mg Clopidogrel Bisulfate (Plavix) 75 mg PO DAILY [facility] Last Admin: 09/13/17 09:28 Dose: 75 mg Collagenase (Santyl) 0 gm TOP DAILY [facility] Last Admin: 09/13/17 09:28 Dose: Not Given Famotidine (Pepcid) 20 mg PO BID [facility] Last Admin: 09/13/17 18:35 Dose: 20 mg Ferrous Gluconate (Fergon) 324 mg PO TID [facility] Last Admin: 09/13/17 18:35 Dose: 324 mg Vancomycin/Sodium Chloride (Vancomycin 1 Gm/Ns 200 Ml) 1 gm in 200 mls @ 133 mls/hr IVPB Q24H [facility] PRN Reason: Protocol Stop: 09/16/17 14:01 Last Admin: 09/13/17 14:21 Dose: 133 mls/hr Ibuprofen (Motrin Tab) 600 mg PO Q12H PRN PRN Reason: Pain, Mild (1-3) Last Admin: 09/06/17 17:28 Dose: 600 mg - Labs Labs: 09/13/17 07:19 09/13/17 07:19 PT 16.7 SECONDS (9.7-12.2) H 09/08/17 20:02 INR 1.5 09/08/17 20:02 APTT 49 SECONDS (21-34) H D 09/09/17 06:30 - Additional Findings Additional findings: - Constitutional Appears: Well, Non-toxic, No Acute Distress - Head Exam Head Exam: NORMAL INSPECTION - Eye Exam Eye Exam: EOMI, Normal appearance - ENT Exam ENT Exam: Mucous Membranes Moist - Neck Exam Neck Exam: Full ROM - Respiratory Exam Respiratory Exam: Clear to Ausculation Bilateral, NORMAL BREATHING PATTERN. absent: Rales, Rhonchi, Wheezes - Cardiovascular Exam Cardiovascular Exam: RRR, +S1, +S2 - GI/Abdominal Exam GI & Abdominal Exam: Soft, Normal Bowel Sounds. 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 Plan: 1. Bilateral non-healing ulcers secondary to chronic partial thrombosis of the lower extremity venous circulation - s/p thrombolysis/stenting of IVD and bilateral iliacs - cont AC Eliquis and Plavix - cont Santyl - wound culture of LLE grew strep viridans; maintain on contact precautions - on Vancomycin (ID recommending 7days total rx) - cont PT rehab 2. Prophlyaxis - pepcid Case reviewed and discussed with Dr. Prince
[2017-09-14 08:53] LABS: BASO # 0.1 K/uL (0.0-0.2); BASO % 0.8 % (0.0-2.0); EOS # 0.1 K/uL (0.0-0.7); EOS % 1.1 % (0.0-4.0); HEMOGLOBIN 10.4 g/dL (12.0-18.0); LYMPH # 0.8 K/uL (1.0-4.3); LYMPH % 9.1 % (20.0-40.0); MEAN CELL VOLUME 85.9 fL (80.0-94.0); MEAN CORPUSCULAR HEMOGLOBIN 29.7 pg (27.0-31.0); MEAN CORPUSCULAR HGB CONC 34.6 g/dL (33.0-37.0); MEAN PLATELET VOLUME 6.9 fL (7.2-11.7); MONO % 11.4 % (0.0-10.0); NEUT # 6.8 K/uL (1.8-7.0); NEUT % 77.6 % (50.0-75.0); NRBC % 0.1 % (0.0-2.0); PLATELET COUNT 614 K/uL (130-400); RBC 3.49 Mil/uL (4.40-5.90); RED CELL DISTRIBUTION WIDTH 14.6 % (11.5-14.5); WHITE BLOOD COUNT 8.8 K/uL (4.8-10.8)
[2017-09-14 09:13] LABS: ALB/GLOB RATIO 0.8 (1.0-2.1); ALBUMIN 3.4 g/dL (3.5-5.0); ALT/SGPT < 6 U/L (21-72); AST/SGOT 19 U/L (17-59); BLOOD UREA NITROGEN 14 mg/dL (9-20); CALCIUM 8.8 mg/dl (8.6-10.4); GFR AFRICAN-AMERICAN > 60; GFR NON-AFRICAN AMERICAN > 60
[2017-09-14] MEDS: Collagenase 250 Units/gm Ointment(30 gm) TOP SCH (09:21)
[2017-09-14 10:55] LABS: BASOPHIL 1 % (0-2); HYPOCHROMIC SLIGHT; LYMPHOCYTE 6 % (20-40); MONOCYTE 9 % (0-10); NEUTROPHIL 84 % (50-75); PLATELET ESTIMATE INCREASED (NORMAL); TOTAL CELLS COUNTED 100
[2017-09-14] MEDS: Vancomycin 1 gm/NS 200 ml 1 GM/200 ML BAG IVPB SCH (14:04)
--- NOTE | 2017-09-14 22:17 | CP.PCM.PN ---
Subjective - Date & Time of Evaluation Date of Evaluation: 09/14/17 Time of Evaluation: 13:35 - Subjective Subjective: Patient denies any leg pains or cramps. Leg ulcerations improved. He needs 7 more days of IV vancomycin. Objective - Vital Signs/Intake and Output Vital Signs (last 24 hours): Temp Pulse Resp BP Pulse Ox 98.2 F 91 H 18 107/68 97 09/14/17 20:29 09/14/17 16:38 09/14/17 20:29 09/14/17 16:38 09/14/17 16:38 Intake and Output: 09/14/17 09/15/17 18:59 06:59 Intake Total 780 300 Output Total 1300 Balance -520 300 - Medications Medications: Current Medications Apixaban (Eliquis) 5 mg PO DAILY [facility] Last Admin: 09/14/17 09:21 Dose: 5 mg Clopidogrel Bisulfate (Plavix) 75 mg PO DAILY [facility] Last Admin: 09/14/17 09:21 Dose: 75 mg Collagenase (Santyl) 0 gm TOP DAILY [facility] Last Admin: 09/14/17 09:21 Dose: Not Given Famotidine (Pepcid) 20 mg PO BID [facility] Last Admin: 09/14/17 17:36 Dose: 20 mg Ferrous Gluconate (Fergon) 324 mg PO TID [facility] Last Admin: 09/14/17 17:36 Dose: 324 mg Vancomycin/Sodium Chloride (Vancomycin 1 Gm/Ns 200 Ml) 1 gm in 200 mls @ 133 mls/hr IVPB Q24H [facility] PRN Reason: Protocol Stop: 09/16/17 14:01 Last Admin: 09/14/17 14:04 Dose: 133 mls/hr Ibuprofen (Motrin Tab) 600 mg PO Q12H PRN PRN Reason: Pain, Mild (1-3) Last Admin: 09/06/17 17:28 Dose: 600 mg - Labs Labs: 09/14/17 08:43 09/14/17 08:43 PT 16.7 SECONDS (9.7-12.2) H 09/08/17 20:02 INR 1.5 09/08/17 20:02 APTT 49 SECONDS (21-34) H D 09/09/17 06:30 - Constitutional Appears: Chronically Ill - Head Exam Head Exam: NORMOCEPHALIC - Eye Exam Eye Exam: Normal appearance Pupil Exam: NORMAL ACCOMODATION - ENT Exam ENT Exam: Normal Exam - Neck Exam Neck Exam: Normal Inspection - Respiratory Exam Respiratory Exam: Decreased Breath Sounds - Cardiovascular Exam Cardiovascular Exam: REGULAR RHYTHM - GI/Abdominal Exam GI & Abdominal Exam: Hyperactive Bowel Sounds - Rectal Exam Rectal Exam: Deferred - Exam Exam: NORMAL INSPECTION - Extremities Exam Extremities Exam: Tenderness - Back Exam Back Exam: NORMAL INSPECTION - Neurological Exam Neurological Exam: Oriented x3 - Psychiatric Exam Psychiatric exam: Depressed - Skin Skin Exam: Dry Assessment and Plan (1) Degenerative joint disease Status: Acute (2) Hypertension Status: Acute (3) Obesity Status: Chronic (4) Peripheral vascular disease of lower extremity with ulceration Status: Acute (5) IVC thrombosis Status: Acute (6) 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
[2017-09-15 00:08] VITALS: RESP 20; O2SAT 95
--- NOTE | 2017-09-15 07:09 | CP.PCM.PN ---
<Christo Mackay - Last Filed: 09/15/17 21:15> Subjective - Date & Time of Evaluation Date of Evaluation: 09/15/17 Time of Evaluation: 07:09 - Subjective Subjective: Christo Mackay PGY1 Cardiology Progress Note for Dr. Prince Patient was seen and examined at bedside. strongly encouraged to move and continue the exercises given to him, patient is compliant. He denies chest pain , fevers/chills, n/v/d, headaches, abdominal pain. Objective - Vital Signs/Intake and Output Vital Signs (last 24 hours): Temp Pulse Resp BP Pulse Ox 98.3 F 90 20 119/74 95 09/15/17 00:07 09/15/17 00:07 09/15/17 00:07 09/15/17 00:07 09/15/17 00:07 Intake and Output: 09/15/17 09/15/17 06:59 18:59 Intake Total 300 Balance 300 - Medications Medications: Current Medications Apixaban (Eliquis) 5 mg PO DAILY [facility] Last Admin: 09/14/17 09:21 Dose: 5 mg Clopidogrel Bisulfate (Plavix) 75 mg PO DAILY [facility] Last Admin: 09/14/17 09:21 Dose: 75 mg Collagenase (Santyl) 0 gm TOP DAILY [facility] Last Admin: 09/14/17 09:21 Dose: Not Given Famotidine (Pepcid) 20 mg PO BID [facility] Last Admin: 09/14/17 17:36 Dose: 20 mg Ferrous Gluconate (Fergon) 324 mg PO TID [facility] Last Admin: 09/14/17 17:36 Dose: 324 mg Vancomycin/Sodium Chloride (Vancomycin 1 Gm/Ns 200 Ml) 1 gm in 200 mls @ 133 mls/hr IVPB Q24H [facility] PRN Reason: Protocol Stop: 09/16/17 14:01 Last Admin: 09/14/17 14:04 Dose: 133 mls/hr Ibuprofen (Motrin Tab) 600 mg PO Q12H PRN PRN Reason: Pain, Mild (1-3) Last Admin: 09/06/17 17:28 Dose: 600 mg - Labs Labs: 09/14/17 08:43 09/14/17 08:43 PT 16.7 SECONDS (9.7-12.2) H 09/08/17 20:02 INR 1.5 09/08/17 20:02 APTT 49 SECONDS (21-34) H D 09/09/17 06:30 - Additional Findings Additional findings: - Constitutional Appears: Well, Non-toxic, No Acute Distress - Head Exam Head Exam: NORMAL INSPECTION - Eye Exam Eye Exam: EOMI, Normal appearance - ENT Exam ENT Exam: Mucous Membranes Moist - Neck Exam Neck Exam: Full ROM - Respiratory Exam Respiratory Exam: Clear to Ausculation Bilateral, NORMAL BREATHING PATTERN. absent: Rales, Rhonchi, Wheezes - Cardiovascular Exam Cardiovascular Exam: RRR, +S1, +S2 - GI/Abdominal Exam GI & Abdominal Exam: Soft, Normal Bowel Sounds. 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 Plan: 1. Bilateral non-healing ulcers secondary to chronic partial thrombosis of the lower extremity venous circulation - s/p thrombolysis/stenting of IVD and bilateral iliacs - cont AC Eliquis and Plavix - cont Santyl - wound culture of LLE grew strep viridans; maintain on contact precautions - on IV Vancomycin (ID recommending 7days total rx) - cont PT rehab 2. Prophlyaxis - pepcid Case reviewed and discussed with Dr. Prince <Jose Prince - Last Filed: 09/17/17 15:50> Objective - Vital Signs/Intake and Output Vital Signs (last 24 hours): Temp Pulse Resp BP Pulse Ox 98.2 F 88 20 115/79 95 09/15/17 08:00 09/15/17 08:00 09/15/17 08:00 09/15/17 08:00 09/15/17 08:00 - Labs Labs: 09/14/17 08:43 09/14/17 08:43 PT 16.7 SECONDS (9.7-12.2) H 09/08/17 20:02 INR 1.5 09/08/17 20:02 APTT 49 SECONDS (21-34) H D 09/09/17 06:30 Assessment and Plan (1) IVC thrombosis Status: Acute (2) Hypertension Status: Acute (3) Infected stasis ulcer of left lower extremity Status: Acute (4) MRSA (methicillin resistant Staphylococcus aureus) infection Status: Acute (5) Ulcerated varicose veins of leg Status: Acute Attending/Attestation - Attestation I have personally seen and examined this patient.: Yes I have fully participated in the care of the patient.: Yes I have reviewed all pertinent clinical information, including history, physical exam and plan: Yes
[2017-09-15 08:07] VITALS: BP 115/79; PULSE 88; TEMP 98.2
[2017-09-15] MEDS: Collagenase 250 Units/gm Ointment(30 gm) TOP SCH (10:11)
--- NOTE | 2017-09-15 11:10 | CP.PCM.PN ---
Subjective - Date & Time of Evaluation Date of Evaluation: 09/15/17 Time of Evaluation: 11:08 - Subjective Subjective: Podiatry Progress note for Dr. Peres 52 year old male was seen at bedside this morning for chronic non-healing wounds to bilateral legs. Patient is resting comfortably, NAD. No acute events overnight. Dressing to bilateral lower extremities remain clean dry and intact. Patient denies of any pain to the sites of ulceration. Patient admits pain to knees bilaterally. Patient denies of any N/V/F/C or SOB today Objective - Vital Signs/Intake and Output Vital Signs (last 24 hours): Temp Pulse Resp BP Pulse Ox 98.2 F 88 20 115/79 95 09/15/17 08:00 09/15/17 08:00 09/15/17 08:00 09/15/17 08:00 09/15/17 08:00 Intake and Output: 09/15/17 09/15/17 06:59 18:59 Intake Total 300 Balance 300 - Medications Medications: Current Medications Apixaban (Eliquis) 5 mg PO DAILY [facility] Last Admin: 09/15/17 10:09 Dose: 5 mg Clopidogrel Bisulfate (Plavix) 75 mg PO DAILY [facility] Last Admin: 09/15/17 10:09 Dose: 75 mg Collagenase (Santyl) 0 gm TOP DAILY [facility] Last Admin: 09/15/17 10:11 Dose: Not Given Famotidine (Pepcid) 20 mg PO BID [facility] Last Admin: 09/15/17 10:09 Dose: 20 mg Ferrous Gluconate (Fergon) 324 mg PO TID [facility] Last Admin: 09/15/17 10:09 Dose: 324 mg Vancomycin/Sodium Chloride (Vancomycin 1 Gm/Ns 200 Ml) 1 gm in 200 mls @ 133 mls/hr IVPB Q24H [facility] PRN Reason: Protocol Stop: 09/16/17 14:01 Last Admin: 09/14/17 14:04 Dose: 133 mls/hr Ibuprofen (Motrin Tab) 600 mg PO Q12H PRN PRN Reason: Pain, Mild (1-3) Last Admin: 09/06/17 17:28 Dose: 600 mg - Labs Labs: 09/14/17 08:43 09/14/17 08:43 PT 16.7 SECONDS (9.7-12.2) H 05/11/18 20:02 INR 1.5 09/08/17 20:02 APTT 49 SECONDS (21-34) H D 09/09/17 06:30 - Constitutional Appears: Well, Non-toxic, No Acute Distress - Head Exam Head Exam: ATRAUMATIC - Extremities Exam Additional comments: DERM: LEFT: Full thickness ulceration noted to the anterio medial aspect of the left leg measuring approximately 10 cm by 6 cm by 0.3 cm with an 90% granular and 10 % fibrotic base, mild amount of purulence present, moderate malodor noted. RIGHT: Full-thickness ulceration noted to the anteriomedial aspect of right leg measuring approximately 2 cm by 2 cm with 90% granular and 10% fibrotic base, mild purulence present, malodor noted. Periwound erythema noted b/l. Vasc: DP and PT pulses faintly palpable b/l. CFT > 3 seconds to all digits b/l. Skin temperature warm to warm from proximal to distal b/l. +1 pitting edema noted to bilateral LE. Neuro: Gross sensation diminished b/l Ortho: Minimal tenderness to palpation leg wounds b/l. Pain upon ROM legs, R>L. - Neurological Exam Neurological Exam: Alert, Awake, Oriented x3 - Psychiatric Exam Psychiatric exam: Normal Affect, Normal Mood - Skin Skin Exam: Normal Color, Warm Assessment and Plan - Assessment and Plan (Free Text) Assessment: 52 year old male with chronic non-healing wounds to bilateral legs Plan: Patient seen and evaluated Discussed with attending, Dr. Peres chart, labs,vitals reviewed;afebrile, WBC 8.8 Cont IV abx per ID L ankle pressure index of the LLE is non-diagnosic due to possible arterial wall calcifications LE venous duplex exam:chronic partial thrombosis of the right and left common femoral, femoral and poplietal veins with severe reduction of venous return Patient s/p vascular intervention with Dr. Prince wound culture- strep viridans, (-) for MRSA Continue local wound care: saline cleanse, xeroform, DSD, WILLARD Podiatry will continue to follow
--- NOTE | 2017-09-15 12:32 | CP.PCM.PN ---
Subjective - Date & Time of Evaluation Date of Evaluation: 09/15/17 Time of Evaluation: 12:32 - Subjective Subjective: PATIENT WAS ADMITTED FOR EXTENSIVE VENOUS THROMBOSIS AAOX3 / DENIES CHEST PAIN /SOB NO SIGH OF DISTRESS NOTED Objective - Vital Signs/Intake and Output Vital Signs (last 24 hours): Temp Pulse Resp BP Pulse Ox 98.2 F 88 20 115/79 95 09/15/17 08:00 09/15/17 08:00 09/15/17 08:00 09/15/17 08:00 09/15/17 08:00 Intake and Output: 09/15/17 09/15/17 06:59 18:59 Intake Total 300 Balance 300 - Medications Medications: Current Medications Apixaban (Eliquis) 5 mg PO DAILY [facility] Last Admin: 09/15/17 10:09 Dose: 5 mg Clopidogrel Bisulfate (Plavix) 75 mg PO DAILY [facility] Last Admin: 09/15/17 10:09 Dose: 75 mg Collagenase (Santyl) 0 gm TOP DAILY [facility] Last Admin: 09/15/17 10:11 Dose: Not Given Famotidine (Pepcid) 20 mg PO BID [facility] Last Admin: 09/15/17 10:09 Dose: 20 mg Ferrous Gluconate (Fergon) 324 mg PO TID [facility] Last Admin: 09/15/17 10:09 Dose: 324 mg Vancomycin/Sodium Chloride (Vancomycin 1 Gm/Ns 200 Ml) 1 gm in 200 mls @ 133 mls/hr IVPB Q24H [facility] PRN Reason: Protocol Stop: 09/16/17 14:01 Last Admin: 09/14/17 14:04 Dose: 133 mls/hr Ibuprofen (Motrin Tab) 600 mg PO Q12H PRN PRN Reason: Pain, Mild (1-3) Last Admin: 09/06/17 17:28 Dose: 600 mg - Labs Labs: 09/14/17 08:43 09/14/17 08:43 PT 16.7 SECONDS (9.7-12.2) H 09/08/17 20:02 INR 1.5 09/08/17 20:02 APTT 49 SECONDS (21-34) H D 09/09/17 06:30 Assessment and Plan - Assessment and Plan (Free Text) Assessment: PLACE UNDER THE SERVICE OF DR Rio BLOUNT AT [facility] ---CALL FOR ADMITTING ORDER CONTINUE ALL YOUR HOME MEDICATION NEW PRESCRIPTION GIVEN VANCO 1 G IVPB Q24 H FOR [address] ABDI (ID) CONTINUE WOUND CARE PER PODIATRY AND FACILITY PROTOCOL wound culture- strep viridans, (-) for MRSA Continue local wound care: saline cleanse, xeroform, DSD, WILLARD IV HEPLOCK CARE PER FACILITY PROTOCOL PHYSICAL THERAPY PER FACILITY PROTOCOL CALL DR BANERJEE OR DR Rio BLOUNT FOR FURTHER ORDER
[2017-09-15] MEDS: Vancomycin 1 gm/NS 200 ml 1 GM/200 ML BAG IVPB SCH (14:17)
--- NOTE | 2017-09-15 22:50 | CP.PCM.DIS ---
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 Priority: High Hospital Course - Lab Results Lab Results: Micro Results 09/11/17 20:39 Nose MRSA Culture - Final MRSA NOT DETECTED 09/05/17 14:50 Blood-Venous Blood Culture - Final NO GROWTH AFTER 5 DAYS 09/05/17 13:46 Blood-Venous Blood Culture - Final NO GROWTH AFTER 5 DAYS 09/07/17 18:20 Nose MRSA Culture (Admit) - Final MRSA NOT DETECTED 08/28/17 14:00 Blood-Venous Blood Culture - Final NO GROWTH AFTER 5 DAYS 08/28/17 14:00 Blood-Venous Gram Stain - Final TEST NOT PERFORMED 08/28/17 14:30 Blood-Venous Blood Culture - Final NO GROWTH AFTER 5 DAYS 08/28/17 14:30 Blood-Venous Gram Stain - Final TEST NOT PERFORMED 08/28/17 15:30 Leg - Left Gram Stain - Final 08/28/17 15:30 Leg - Left Wound Culture - Final Streptococcus Viridans Most Recent Lab Values WBC 8.8 K/uL (4.8-10.8) 09/14/17 08:43 RBC 3.49 Mil/uL (4.40-5.90) L 09/14/17 08:43 Hgb 10.4 g/dL (12.0-18.0) L 09/14/17 08:43 Hct 30.0 % (35.0-51.0) L 09/14/17 08:43 MCV 85.9 fL (80.0-94.0) 09/14/17 08:43 MCH 29.7 pg (27.0-31.0) 09/14/17 08:43 MCHC 34.6 g/dL (33.0-37.0) 09/14/17 08:43 RDW 14.6 % (11.5-14.5) H 09/14/17 08:43 Plt Count 614 K/uL (130-400) H 09/14/17 08:43 MPV 6.9 fL (7.2-11.7) L 09/14/17 08:43 Neut % (Auto) 77.6 % (50.0-75.0) H 09/14/17 08:43 Lymph % (Auto) 9.1 % (20.0-40.0) L 09/14/17 08:43 [place] % (Auto) 11.4 % (0.0-10.0) H 09/14/17 08:43 Eos % (Auto) 1.1 % (0.0-4.0) 09/14/17 08:43 Baso % (Auto) 0.8 % (0.0-2.0) 09/14/17 08:43 Neut # (Auto) 6.8 K/uL (1.8-7.0) 09/14/17 08:43 Lymph # (Auto) 0.8 K/uL (1.0-4.3) L 09/14/17 08:43 [place] # (Auto) 1.0 K/uL (0.0-0.8) H 09/14/17 08:43 Eos # (Auto) 0.1 K/uL (0.0-0.7) 09/14/17 08:43 Baso # (Auto) 0.1 K/uL (0.0-0.2) 09/14/17 08:43 Neutrophils % (Manual) 84 % (50-75) H 09/14/17 08:43 Band Neutrophils % 1 % (0-2) 09/09/17 06:30 Lymphocytes % (Manual) 6 % (20-40) L 09/14/17 08:43 Monocytes % (Manual) 9 % (0-10) 09/14/17 08:43 Basophils % (Manual) 1 % (0-2) 09/14/17 08:43 Platelet Estimate Increased (NORMAL) H 09/14/17 08:43 RBC Morphology Normal 09/06/17 08:20 Hypochromasia (manual) Slight 09/14/17 08:43 Anisocytosis (manual) Slight 09/09/17 06:30 PT 16.7 SECONDS (9.7-12.2) H 09/08/17 20:02 INR 1.5 09/08/17 20:02 APTT 49 SECONDS (21-34) H D 09/09/17 06:30 D-Dimer, Quantitative 2702 ng/mlDDU (0-243) H 08/30/17 17:30 Sodium 137 mmol/L (132-148) 09/14/17 08:43 Potassium 4.1 mmol/L (3.6-5.2) 09/14/17 08:43 Chloride 98 mmol/L (98-107) 09/14/17 08:43 Carbon Dioxide 27 mmol/L (22-30) 09/14/17 08:43 Anion Gap 17 (10-20) 09/14/17 08:43 BUN 14 mg/dL (9-20) 09/14/17 08:43 Creatinine 0.9 mg/dL (0.8-1.5) 09/14/17 08:43 Est GFR ( Amer) > 60 09/14/17 08:43 Est GFR (Non-Af Amer) > 60 09/14/17 08:43 Random Glucose 105 mg/dL (75-110) 09/14/17 08:43 Hemoglobin A1c 5.4 % (4.2-6.5) 08/29/17 14:46 Calcium 8.8 mg/dl (8.6-10.4) 09/14/17 08:43 Phosphorus 4.4 mg/dL (2.5-4.5) 09/14/17 08:43 Magnesium 1.9 mg/dL (1.6-2.3) 09/14/17 08:43 Total Bilirubin 0.7 mg/dL (0.2-1.3) 09/14/17 08:43 AST 19 U/L (17-59) 09/14/17 08:43 ALT < 6 U/L (21-72) L D 09/14/17 08:43 Alkaline Phosphatase 85 U/L (38-126) 09/14/17 08:43 NT-Pro-B Natriuret Pep 77.6 pg/mL (0-900) 08/29/17 15:23 Total Protein 7.7 g/dL (6.3-8.3) 09/14/17 08:43 Albumin 3.4 g/dL (3.5-5.0) L 09/14/17 08:43 Globulin 4.3 gm/dL (2.2-3.9) H 09/14/17 08:43 Albumin/Globulin Ratio 0.8 (1.0-2.1) L 09/14/17 08:43 Triglycerides 124 mg/dL (0-149) D 08/29/17 14:46 Cholesterol 201 mg/dL (0-199) H 08/29/17 14:46 LDL Cholesterol Direct 111 mg/dL (0-129) 08/29/17 14:46 HDL Cholesterol 38 mg/dL (30-70) 08/29/17 14:46 Prostate Specific Ag 0.394 ng/mL (0.00-4.0) 09/07/17 08:33 Ethanolamine None detected 09/10/17 10:44 Vancomycin Trough 5.5 ug/mL (5.0-10.0) 09/14/17 08:43 Methyl Alcohol Level None detected 09/10/17 10:44 Isopropanol None detected 09/10/17 10:44 Acetone Level None detected 09/10/17 10:44 Discharge Exam - Head Exam Head Exam: ATRAUMATIC, NORMOCEPHALIC - Eye Exam Eye Exam: Normal appearance Pupil Exam: NORMAL ACCOMODATION - ENT Exam ENT Exam: Normal Exam - Neck Exam Neck exam: Normal Inspection - Respiratory Exam Respiratory Exam: Decreased Breath Sounds - Cardiovascular Exam Cardiovascular Exam: REGULAR RHYTHM - GI/Abdominal Exam GI & Abdominal Exam: Hypoactive Bowel Sounds - Rectal Exam Rectal Exam: Deferred - Exam Exam: NORMAL INSPECTION - Extremities Exam Extremities exam: pedal edema - Back Exam Back exam: NORMAL INSPECTION - Neurological Exam Neurological exam: Oriented x3 - Psychiatric Exam Psychiatric exam: Depressed - Skin Skin Exam: Dry Discharge Plan - Discharge Medications Prescriptions: Vancomycin 1 GM [Vancomycin 1GM in Normal Saline [place]vant[place]] 1 gm IVPB Q24H 6 Days bag - Follow Up Plan Condition: FAIR Disposition: REHAB FACILITY/REHAB UNIT Instructions: Peripheral Vascular (Arterial) Disease (DC), Diabetes Diet , Diabetes Type 2 (DC), Diabetes and Infections, Vancomycin, Cellulitis (DC), Deep Venous Thrombosis (DC) Additional Instructions: PLACE UNDER THE SERVICE OF DR Rio BLOUNT AT [facility] ---CALL FOR ADMITTING ORDER CONTINUE ALL YOUR HOME MEDICATION NEW PRESCRIPTION GIVEN VANCO 1 G IVPB Q24 H FOR [address] YANG (ID) CONTINUE WOUND CARE PER PODIATRY AND FACILITY PROTOCOL wound culture- strep viridans, (-) for MRSA Continue local wound care: saline cleanse, xeroform, DSD, WILLARD IV HEPLOCK CARE PER FACILITY PROTOCOL PHYSICAL THERAPY PER FACILITY PROTOCOL CALL DR BANERJEE OR DR Rio BLOUNT FOR FURTHER ORDER Referrals: Jeovany Peres DPM [Staff Provider] - Jose Prince MD [Staff Provider] - Daquan Banerjee MD [Staff Provider] - Castillo Yang MD [Staff Provider] - Juan Baer MD [Staff Provider] -
== END 2017-09-15 14:21 | DRG 253 ==
LOC: C.ER 13:29 → C.9E 15:16 → EEVIPCON 15:16 → C.5S 20:40 → C.9S 09-07 11:08 → C.9I 09-07 14:25 → C.3T 09-11 20:35 → C.5S 09-13 09:30
PROVIDERS: ADMIT Internal Medicine; ATTEND Internal Medicine
PROC: 047D3ZZ Dilation of Left Common Iliac Artery, Percutaneous Approach (ICD-10-PCS; 2017-09-07)
PROC: 3E06317 Introduction of Other Thrombolytic into Central Artery, Percutaneous Approach (ICD-10-PCS; 2017-09-07)
PROC: 047D3ZZ Dilation of Left Common Iliac Artery, Percutaneous Approach (ICD-10-PCS; principal; 2017-09-08)
PROC: 047H3DZ Dilation of Right External Iliac Artery with Intraluminal Device, Percutaneous Approach (ICD-10-PCS; 2017-09-08)
DX: E11.51 Type 2 diabetes mellitus with diabetic peripheral angiopathy without gangrene (principal); T82.868A Thrombosis due to vascular prosthetic devices, implants and grafts, initial encounter; I13.0 Hypertensive heart and chronic kidney disease with heart failure and stage 1 through stage 4 chronic kidney disease, or unspecified chronic kidney disease; L03.115 Cellulitis of right lower limb; L03.116 Cellulitis of left lower limb; L97.329 Non-pressure chronic ulcer of left ankle with unspecified severity; L97.319 Non-pressure chronic ulcer of right ankle with unspecified severity; I87.2 Venous insufficiency (chronic) (peripheral); I82.220 Acute embolism and thrombosis of inferior vena cava; I82.513 Chronic embolism and thrombosis of femoral vein, bilateral; I82.533 Chronic embolism and thrombosis of popliteal vein, bilateral; E11.622 Type 2 diabetes mellitus with other skin ulcer; D64.9 Anemia, unspecified; E11.22 Type 2 diabetes mellitus with diabetic chronic kidney disease; E78.00 Pure hypercholesterolemia, unspecified; E66.9 Obesity, unspecified; G47.33 Obstructive sleep apnea (adult) (pediatric); I25.10 Atherosclerotic heart disease of native coronary artery without angina pectoris; I27.20 Pulmonary hypertension, unspecified; I50.9 Heart failure, unspecified; J45.909 Unspecified asthma, uncomplicated; Z79.4 Long term (current) use of insulin; Y83.8 Other surgical procedures as the cause of abnormal reaction of the patient, or of later complication, without mention of misadventure at the time of the procedure; B95.62 Methicillin resistant Staphylococcus aureus infection as the cause of diseases classified elsewhere; N18.9 Chronic kidney disease, unspecified; Z68.36 Body mass index [BMI] 36.0-36.9, adult; M19.90 Unspecified osteoarthritis, unspecified site

== ENCOUNTER 2018-06-21 12:14 | Inpatient (IN) | payer MEDICARE, SELFPAY ==
[2018-06-21 12:16] VITALS: BMI 38.5
[2018-06-21] MEDS ORDERED: Vancomycin 1 GM 1 GM/250 ML BAG IVPB STA (13:17)
[2018-06-21] MEDS ORDERED: cefTRIAXone IV 1 gm in Dextros 50 ML IV ONE (13:19)
[2018-06-21 13:44] LABS: BASO # 0.1 K/uL (0.0-0.2); BASO % 0.5 % (0.0-2.0); EOS # 0.1 K/uL (0.0-0.7); EOS % 0.5 % (0.0-4.0); LYMPH # 1.1 K/uL (1.0-4.3); LYMPH % 9.2 % (20.0-40.0); MEAN CORPUSCULAR HEMOGLOBIN 29.6 pg (27.0-31.0); MEAN CORPUSCULAR HGB CONC 33.4 g/dL (33.0-37.0); MEAN PLATELET VOLUME 8.1 fL (7.2-11.7); MONO # 1.3 K/uL (0.0-0.8); MONO % 11.4 % (0.0-10.0); NEUT # 9.2 K/uL (1.8-7.0); NEUT % 78.4 % (50.0-75.0); RBC 4.68 Mil/uL (4.40-5.90); RED CELL DISTRIBUTION WIDTH 14.7 % (11.5-14.5); WHITE BLOOD COUNT 11.7 K/uL (4.8-10.8)
[2018-06-21 13:47] LABS: HEMOGLOBIN 13.8 g/dL (12.0-18.0); MEAN CELL VOLUME 88.5 fL (80.0-94.0); PLATELET COUNT 394 K/uL (130-400)
[2018-06-21] MEDS ORDERED: Vancomycin 1 GM 1 GM/250 ML BAG IVPB ONE (13:52)
[2018-06-21 13:54] LABS: URINE BILIRUBIN NEGATIVE (NEGATIVE); URINE BLOOD NEGATIVE (NEGATIVE); URINE CLARITY Clear (Clear); URINE COLOR Yellow (YELLOW); URINE GLUCOSE (UA) NORMAL (Normal); URINE LEUKOCYTE ESTERASE NEG Leu/uL (Negative); URINE PROTEIN NEGATIVE (NEGATIVE); URINE UROBILINOGEN NORMAL mg/dL (0.2-1.0)
[2018-06-21 13:56] LABS: ALB/GLOB RATIO 1.2 (1.0-2.1); ALBUMIN 4.4 g/dL (3.5-5.0); AST/SGOT 15 U/L (17-59); BLOOD UREA NITROGEN 14 mg/dL (9-20); CALCIUM 9.2 mg/dl (8.6-10.4); GFR NON-AFRICAN AMERICAN > 60; LIPASE 79 U/L (23-300)
[2018-06-21 13:58] LABS: ALT/SGPT < 6 U/L (21-72)
--- NOTE | 2018-06-21 14:14 | CP.PCM.CON ---
History of Present Illness - History of Present Illness History of Present Illness: Consult note for Dr. Diaz. Patient is a 52 year old male with PMHx of HTN, gallstones, GERD, DVT, and gout presenting to the ED with complaints of abscess on the right gluteal fold for the past 6 days. Patient reports that he first noticed the abscess 6 days ago while using the bathroom and says that the abscess has since been growing in size. He reports a 4 day history of no bowel movements and difficulty initiating urination but has been passing gas. Patient states that he had a viral illness 1 week ago which caused him to have fever and diarrhea which self resolved 3 days prior to noticing the abscess. This is the first time this has happened and he denies any over the counter medications or topical antidotes for the abscess. Patient denies fevers, chills, chest pain, SOB, abdominal pain, n/v, recent travel, sick contacts, weight loss, or dysuria. PMD: Dr. Daquan Brown PMHx: HTN, gallstones, GERD, DVT, and gout Medications: clopidogrel, omeprazole, allopurinol, xarelto, quinapril, ibuprofen, iron SurgHx: IVC R groin 2009 and 2018, hernia repair 2010, denies colonoscopy Allergies: penicillin - hives FamilyHx: brother - hx of clotting disorder, father - colon cancer SocialHx: lives with brother in [place], is semi-retired working as a supervisory lifeguard, denies drugs or tobacco, drinks alcohol socially 2-3x/year Review of Systems - Review of Systems All systems: reviewed and no additional remarkable complaints except (see HPI) Past Patient History - Infectious Disease Hx of Infectious Diseases: None, C.diff - Tetanus Immunizations Tetanus Immunization: Up to Date - Past Medical History & Family History Past Medical History?: Yes - Past Social History Smoking Status: Former Smoker - CARDIAC Hx Cardiac Disorders: Yes Hx Hypercholesterolemia: Yes Hx Hypertension: Yes - PULMONARY Hx Respiratory Disorders: Yes Hx Asthma: Yes Hx Bronchitis: Yes Hx Pneumonia: Yes Hx Respiratory Tract Infection: Yes Hx Sleep Apnea: Yes - NEUROLOGICAL Hx Neurological Disorder: No - HEENT Hx HEENT Problems: No - RENAL Hx Chronic Kidney Disease: Yes Hx Kidney Stones: Yes - ENDOCRINE/METABOLIC Hx Endocrine Disorders: No - HEMATOLOGICAL/ONCOLOGICAL Hx Blood Disorders: Yes Hx Anemia: Yes Hx Blood Transfusions: Yes - INTEGUMENTARY Hx Dermatological Problems: Yes Other/Comment: healed lower leg ulcers - MUSCULOSKELETAL/RHEUMATOLOGICAL Hx Musculoskeletal Disorders: Yes Hx Arthritis: Yes - GASTROINTESTINAL Hx Gastrointestinal Disorders: Yes Hx Gall Bladder Disease: Yes Hx Gastritis: Yes - GENITOURINARY/GYNECOLOGICAL Hx Genitourinary Disorders: No - PSYCHIATRIC Hx Substance Use: No - SURGICAL HISTORY Hx Surgeries: Yes Hx Arthroscopy: Yes Hx Herniorrhaphy: Yes (2010) Hx Vascular Surgery: Yes Other/Comment: Vena Cava Filter on R groin for DVT L Leg in 2009. Mar 2015 R leg clot. 2009 L leg clot - ANESTHESIA Hx Anesthesia: Yes Hx Anesthesia Reactions: No Hx Malignant Hyperthermia: No Meds Allergies/Adverse Reactions: Allergies Allergy/AdvReac Type Severity Reaction Status Date / Time Penicillins Allergy Severe ANAPHYLAXIS Verified 06/21/18 12:16 - Medications Medications: Current Medications Vancomycin HCl (Vancomycin 1gm In Normal Saline [place]) 1 gm in 250 mls @ 167 mls/hr IVPB STAT STA; Protocol Stop: 06/21/18 14:46 Physical Exam - Constitutional Appears: Non-toxic, No Acute Distress - Head Exam Head Exam: ATRAUMATIC, NORMAL INSPECTION, NORMOCEPHALIC - Eye Exam Eye Exam: EOMI, Normal appearance - ENT Exam ENT Exam: Mucous Membranes Moist, Normal Exam - Neck Exam Neck exam: Positive for: Normal Inspection - Respiratory Exam Respiratory Exam: Clear to Auscultation Bilateral, NORMAL BREATHING PATTERN. absent: Rales, Rhonchi, Wheezes - Cardiovascular Exam Cardiovascular Exam: Tachycardia, REGULAR RHYTHM, +S1, +S2. absent: Bradycardia - GI/Abdominal Exam GI & Abdominal Exam: Distended, Normal Bowel Sounds, Soft, Tenderness Additional comments: b/l lower quadrant tenderness to palpation - Rectal Exam Additional comments: erythematous, tender 6 cm fluctuant area with purulent drainage to R gluteal fold extending to perianal region - Back Exam Back exam: NORMAL INSPECTION - Neurological Exam Neurological exam: Alert, Oriented x3 - Psychiatric Exam Psychiatric exam: Normal Affect, Normal Mood - Skin Skin Exam: Dry, Intact, Normal Color, Warm Results - Vital Signs Recent Vital Signs: Last Vital Signs Temp 97.6 F 06/21/18 12:16 Pulse 120 H 06/21/18 12:16 Resp 18 06/21/18 12:16 BP 137/92 H 06/21/18 12:16 Pulse Ox 95 06/21/18 12:16 - Labs Result Diagrams: 06/22/18 07:11 06/22/18 07:11 Labs: Laboratory Results - last 24 hr 06/21/18 06/21/18 06/21/18 13:37 13:37 13:45 WBC 11.7 H RBC 4.68 Hgb 13.8 D Hct 41.4 MCV 88.5 D MCH 29.6 MCHC 33.4 RDW 14.7 H Plt Count 394 D MPV 8.1 Neut % (Auto) 78.4 H Lymph % (Auto) 9.[address] [place] % (Auto) 11.4 H Eos % (Auto) 0.5 Baso % (Auto) 0.5 Neut # (Auto) 9.2 H Lymph # (Auto) 1.1 [place] # (Auto) 1.3 H Eos # (Auto) 0.1 Baso # (Auto) 0.1 Sodium 139 Potassium 4.0 Chloride 101 Carbon Dioxide 27 Anion Gap 15 BUN 14 Creatinine 0.9 Est GFR ( Amer) > 60 Est GFR (Non-Af Amer) > 60 Random Glucose 104 Calcium 9.2 Total Bilirubin 1.1 AST 15 L D ALT < 6 L Alkaline Phosphatase 71 Total Protein 8.0 Albumin 4.4 Globulin 3.7 Albumin/Globulin Ratio 1.2 Lipase 79 Urine Color Yellow Urine Clarity Clear Urine pH 6.0 Ur Specific [place] 1.012 Urine Protein Negative Urine Glucose (UA) Normal Urine Ketones Negative Urine Blood Negative Urine Nitrate Negative Urine Bilirubin Negative Urine Urobilinogen Normal Ur Leukocyte Esterase Neg Urine WBC (Auto) < 1 Urine RBC (Auto) 2 Assessment & Plan - Assessment and Plan (Free Text) Assessment: Patient is a 52 year old male with PMHx of HTN, gallstones, DVT, and gout who presents to ED for 6 day history of gluteal abscess. Plan: -CT abd: medial aspect R buttock phlegmon. Fornier's gangrene cannot be ruled out. -OR for I&D -IV antibiotics Further recs as per Dr. Diaz. Janie Nicholson, PGY-1 - Date & Time Date: 06/21/18 Time: 14:31
[2018-06-21] MEDS ORDERED: Iodixanol 320 MG/ML 100 ML BOTTLE IV ONE (14:45)
[2018-06-21 15:00] LABS: EOSINOPHIL 1 % (0-4); LYMPHOCYTE 5 % (20-40); MONOCYTE 5 % (0-10); NEUTROPHIL 89 % (50-75); PLATELET ESTIMATE NORMAL (NORMAL); TOTAL CELLS COUNTED 100
--- NOTE | 2018-06-21 15:18 | C.PDOC ---
History Of Present Illness 52 year old male presents to the ED for evaluation of right-sided gluteal pain which began 5 days ago. Patient lives at home with his brother, but takes care of himself. He has history of chronic foot and leg ulcers bilaterally. Patient denies fever, chills. Time Seen by Provider: 06/21/18 13:11 Chief Complaint (Nursing): Abnormal Skin Integrity History Per: Patient History/Exam Limitations: no limitations Onset/Duration Of Symptoms: Days (5) Current Symptoms Are (Timing): Still Present Additional History Per: Patient Past Medical History Reviewed: Historical Data, Nursing Documentation, Vital Signs Vital Signs: Last Vital Signs Temp 97.6 F 06/21/18 12:16 Pulse 120 H 06/21/18 12:16 Resp 18 06/21/18 12:16 BP 137/92 H 06/21/18 12:16 Pulse Ox 95 06/21/18 12:16 - Medical History PMH: Anemia, Arthritis, Asthma, Bronchitis, Depression, Deep Vein Thrombosis, Gastritis, Gall Bladder Disease, HTN, Hypercholesterolemia, Kidney Stones, Peripheral Edema, Pneumonia, Chronic Kidney Disease, Sleep Apnea Surgical History: No Surg Hx - [facility] Procedures CLOSURE SKIN & SUBCUTANEOUS NEC (12/01/12) DILATE OF L COM ILIAC VEIN WITH INTRALUM DEV, PERC APPROACH (08/28/17) DILATE OF L EXT ILIAC VEIN WITH INTRALUM DEV, PERC APPROACH (08/28/17) DILATE OF R COM ILIAC VEIN WITH INTRALUM DEV, PERC APPROACH (08/28/17) DILATE OF R EXT ILIAC VEIN WITH INTRALUM DEV, PERC APPROACH (08/28/17) DILATION OF INF VENA CAVA WITH INTRALUM DEV, PERC APPROACH (08/28/17) DILATION OF INFERIOR VENA CAVA, PERCUTANEOUS APPROACH (08/28/17) DILATION OF LEFT COMMON ILIAC VEIN, PERCUTANEOUS APPROACH (08/28/17) DILATION OF LEFT FEMORAL VEIN, PERCUTANEOUS APPROACH (08/28/17) EXTIRPATION OF MATTER FROM INFERIOR VENA CAVA, PERC APPROACH (08/28/17) INJECT STEROID (03/29/14) INJECT/INFUSE NEC (03/29/14) INJECTION INTO JOINT (03/29/14) INSERTION OF INFUSION DEV INTO SUP VENA CAVA, PERC APPROACH (11/15/15) INTRODUCTION OF OTH THERAP SUBST INTO MUSCLE, PERC APPROACH (06/08/16) REPAIR ABDOMINAL WALL, EXTERNAL APPROACH (10/07/15) TRANSFUSE NONAUT FROZEN PLASMA IN PERIPH VEIN, PERC (10/07/15) TRANSFUSE NONAUT RED BLOOD CELLS IN PERIPH VEIN, PERC (10/07/15) Family History: States: Unknown Family Hx - Social History Hx Tobacco Use: No Hx Alcohol Use: Yes ("social") Hx Substance Use: No - Immunization History Hx Tetanus Toxoid Vaccination: No Hx Influenza Vaccination: No Hx Pneumococcal Vaccination: No Review Of Systems Constitutional: Negative for: Fever, Chills Musculoskeletal: Positive for: Other (right gluteal pain ) Physical Exam - Physical Exam Appears: Non-toxic, No Acute Distress, Other (morbidly obese, appears older than stated area ) Skin: Warm, Dry, Other (erythema below breasts and abdominal panniculus, consistent with fungal infection. right medial gluteal area: enlarged, erythematous and tender area ([id number]) adjacent to scrotum with fluctuance) Head: Atraumatic, Normacephalic Eye(s): bilateral: Normal Inspection Oral Mucosa: Moist Neck: Supple Chest: Symmetrical, No Deformity, No Tenderness Cardiovascular: Rhythm Regular, No Murmur Respiratory: Normal Breath Sounds, No Rales, No Rhonchi, No Wheezing Gastrointestinal/Abdominal: Soft, No Tenderness Extremity: Capillary Refill (less than 2 seconds ), Other (lower extremities are obese with chronic stasis changes. 2/4 pitting edema, symmetrical ) Neurological/Psych: Normal Speech, Normal Cognition ED Course And Treatment - Laboratory Results Result Diagrams: 06/21/18 13:37 06/21/18 13:37 Lab Results: Troponin I < 0.0120 ng/mL (0.00-0.120) 06/21/18 13:37 Total Bilirubin 1.1 mg/dL (0.2-1.3) 06/21/18 13:37 AST 15 U/L (17-59) L D 06/21/18 13:37 ALT < 6 U/L (21-72) L 06/21/18 13:37 Alkaline Phosphatase 71 U/L (38-126) 06/21/18 13:37 Total Protein 8.0 g/dL (6.3-8.3) 06/21/18 13:37 Albumin 4.4 g/dL (3.5-5.0) 06/21/18 13:37 Globulin 3.7 gm/dL (2.2-3.9) 06/21/18 13:37 Albumin/Globulin Ratio 1.2 (1.0-2.1) 06/21/18 13:37 Lipase 79 U/L (23-300) 06/21/18 13:37 Urine Color Yellow (YELLOW) 06/21/18 13:45 Urine Clarity Clear (Clear) 06/21/18 13:45 Urine pH 6.0 (5.0-8.0) 06/21/18 13:45 Ur Specific [place] 1.012 (1.003-1.030) 06/21/18 13:45 Urine Protein Negative mg/dL (NEGATIVE) 06/21/18 13:45 Urine Glucose (UA) Normal mg/dL (Normal) 06/21/18 13:45 Urine Ketones Negative mg/dL (NEGATIVE) 06/21/18 13:45 Urine Blood Negative (NEGATIVE) 06/21/18 13:45 Urine Nitrate Negative (NEGATIVE) 06/21/18 13:45 Urine Bilirubin Negative (NEGATIVE) 06/21/18 13:45 Urine Urobilinogen Normal mg/dL (0.2-1.0) 06/21/18 13:45 Ur Leukocyte Esterase Neg Loi/uL (Negative) 06/21/18 13:45 Urine WBC (Auto) < 1 /hpf (0-5) 06/21/18 13:45 Urine RBC (Auto) 2 /hpf (0-3) 06/21/18 13:45 O2 Sat by Pulse Oximetry: 95 (on RA ) Pulse Ox Interpretation: Normal Progress Note: Bloodwork, urinalysis, CT A/P, CXR ordered and reviewed. Rocephin IV, Toradol IVP and Vancomycin IVP given. Medical Decision Making Medical Decision Making: prob R gluteal/scrotal Fornier's Gangrene Disposition Doctor Will See Patient In The: Hospital Counseled Patient/Family Regarding: Studies Performed, Diagnosis - Disposition Disposition: HOSPITALIZED Disposition Time: 18:00 Condition: GOOD - Clinical Impression Clinical Impression: Cellulitis, gluteal, right - Scribe Statement The provider has reviewed the documentation as recorded by the Scribe (Lolis Medina) Provider Attestation: All medical record entries made by the Scribe were at my direction and personally dictated by me. I have reviewed the chart and agree that the record accurately reflects my personal performance of the history, physical exam, medical decision making, and the department course for this patient. I have also personally directed, reviewed, and agree with the discharge instructions and disposition.
--- NOTE | 2018-06-21 16:19 | CT ---
Date of service: 06/21/2018 PROCEDURE: CT Abdomen and Pelvis . HISTORY: R gluteal abscess vs Fornier's COMPARISON: Radiation made with CTA abdomen and ileofemoral vasculature dated 12/27/2017. TECHNIQUE: Contiguous axial images of the abdomen and pelvis performed following intravenous injection of approximately 100 cc Visipaque 320 contrast material. Additional 2D sagittal and coronal reformats generated. Radiation dose: Total exam DLP = 1471.9 mGy-cm. This CT exam was performed using one or more of the following dose reduction techniques: Automated exposure control, adjustment of the mA and/or kV according to patient size, and/or use of iterative reconstruction technique. FINDINGS: Note that the examination is somewhat limited due to partial exclusion of the entire lateral abdomen- flank and soft tissues of the right lateral pelvis including the lateral on gluteus musculature LOWER THORAX: Unremarkable. LIVER: Liver is enlarged measuring nearly 22 cm in CC dimension. Note that portions of the right lateral margin of the liver have been excluded on this exam. No obvious hepatic masses or collections. Portal and splenic veins are opacified. GALLBLADDER AND BILE DUCTS: Gallbladder physiologically distended. No evidence of intraluminal gallbladder calculi PANCREAS: Pancreas appears slightly atrophic and fatty replaced. No pancreatic masses collections or calcifications. SPLEEN: Spleen spleen is borderline/mildly enlarged measuring over 13 cm in AP dimension. ADRENALS: There are no adrenal lesions. KIDNEYS AND URETERS: Kidneys demonstrate symmetric nephrograms. No evidence of nephrolithiasis or hydronephrosis. BLADDER: Urinary bladder is the physiologically distended. No evidence of intraluminal urinary bladder calculi. REPRODUCTIVE: See below APPENDIX: Appendix not seen with complete certainty on this study however no obvious inflammatory changes right lower quadrant of the abdomen. BOWEL: Unremarkable. No obstruction. No gross mural thickening. PERITONEUM: Unremarkable. No fluid collection. No free air. Small fat containing umbilical hernia.. There is a small to medium size fat containing right inguinal hernia and smaller fat containing left inguinal hernia LYMPH NODES: Unremarkable. No enlarged lymph nodes. VASCULATURE: In situ IVC filter with what appears to represent on endovascular stent grafts in the distal IVC and iliac veins.. Unremarkable. No aortic aneurysm. No significant atherosclerotic calcification or mural plaque present. BONES: No fracture or destructive lesion. OTHER FINDINGS: There is a relatively large elliptical shaped soft tissue density within the subcutaneous tissues medial aspect right buttock extending posteriorly and slightly laterally stent with a inflammatory/infectious phlegmon possibility.. There are a few scattered bubbles of air present possibly within the phlegmon (or possibly just adjacent to the phlegmon external to the subcutaneous tissues within body fold-creases. There also appears to be inflammatory/infectious involvement of the posterior inferior margin of the scrotum. Possibility of early Fornier's gangrene must be considered.. Extensive collateral vessels seen within the subcutaneous tissues anterior lower abdominal wall IMPRESSION: Limited study due to exclusion of most of the right lateral abdomen including the pelvis. There is a relatively large shaped soft tissue density within the subcutaneous tissues medial aspect right buttock extending posteriorly and slightly laterally stent with a inflammatory/infectious phlegmon possibility.. There are a few scattered bubbles of air present possibly within the phlegmon (or possibly just adjacent to the phlegmon external to the subcutaneous tissues within skin folds -creases. There also appears to be inflammatory/infectious involvement of the posterior inferior margin of the scrotum. Possibility of early Fornier's gangrene must be considered.. Note that these findings were discussed with Dr. Kwon at approximately 3:54 p.m. with written down and read back verification. Hepatomegaly. Borderline/mild splenomegaly. In situ IVC filter with the endovascular stent grafts in the distal IVC and iliac veins
--- NOTE | 2018-06-21 16:28 | RAD ---
Date of service: 06/21/2018 PROCEDURE: CHEST RADIOGRAPH, 1 VIEW HISTORY: Abdominal pain COMPARISON: 08/30/2016. FINDINGS: LUNGS: The lungs are well inflated and clear. PLEURA: No pneumothorax or pleural effusion. CARDIOVASCULAR: The heart is normal in size. No aortic atherosclerotic calcifications present. OSSEOUS STRUCTURES: Within normal limits for the patient's age. VISUALIZED UPPER ABDOMEN: Normal. OTHER FINDINGS: None. IMPRESSION: No active pulmonary disease.
[2018-06-21] MEDS ORDERED: Oxycodone/Acetaminophen 5/325 mg Tab PO PRN (17:14)
[2018-06-21] MEDS ORDERED: HYDROmorphone 0.5 mg/0.5 ml ISec IVP PRN (18:26)
[2018-06-21] MEDS ORDERED: Lidocaine/Epinephrine 1% 1:100000 10 ML IJ ONE (18:27)
[2018-06-21] MEDS ORDERED: Lactated Ringer's 1,000 ML IV SCH (18:30)
[2018-06-21] MEDS ORDERED: Propofol 10 mg/ml Inj (20 ML) ONE (18:35)
[2018-06-21] MEDS ORDERED: Lactated Ringer's 1,000 ML IV ONE (19:14)
--- NOTE | 2018-06-21 19:26 | PCM.SURG1 ---
Surgeon's Initial Post Op Note - Surgeon's Notes Surgeon: Dr. Godinez Retrofit Installer: Dr. Bell PGY-3 Type of Anesthesia: General LMA Pre-Operative Diagnosis: Right Perirectal Abscess Operative Findings: See operative report Post-Operative Diagnosis: R perirectal Abscess & [id number] Operation Performed: 1) Incision & Drainage of Perirectal Abscess. 2) Seton placement Specimen/Specimens Removed: none Estimated Blood Loss: EBL {In ML}: 30 Blood Products Given: N/A Drains Used: No Drains Post-Op Condition: Good Date of Surgery/Procedure: 06/21/18 Time of Surgery/Procedure: 19:26
[2018-06-21] MEDS: Meropenem 500 MG in Sodium Chloride 0.9% 100 ML IVPB SCH (20:42)
--- NOTE | 2018-06-21 22:53 | CP.PCM.HP ---
History of Present Illness - History of Present Illness History of Present Illness: 52-year-old male presents at the [facility] emergency room complaining of eye right gluteal mass for the past 5 days. The mass has progressively increased in size and pain. Patient was evaluated and a surgical consultation was requested. Patient was taken to the OR for incision and drainage. Past history includes thrombophlebitis, pneumonia, vascular insufficiency, hypertension, cellulitis and degenerative joint disease. Present on Admission - Present on Admission Any Indicators Present on Admission: No History of DVT/PE: Yes History of Uncontrolled Diabetes: No Urinary Catheter: No Decubitus Ulcer Present: No History Surgical Site Infection Following: None Review of Systems - Constitutional Constitutional: Fever, Malaise - Cardiovascular Cardiovascular: Leg Ulcers - Gastrointestinal Gastrointestinal: Diarrhea - Musculoskeletal Musculoskeletal: Arthralgias - Integumentary Integumentary: Non-Healing Lesions Past Patient History - Infectious Disease Hx of Infectious Diseases: None, C.diff - Tetanus Immunizations Tetanus Immunization: Up to Date - Past Medical History & Family History Past Medical History?: Yes - Past Social History Smoking Status: Former Smoker Chewing Tobacco Use: No Cigar Use: No Alcohol: None Drugs: Denies Home Situation {Lives}: With Family Domestic Violence: Negative - CARDIAC Hx Cardiac Disorders: Yes Hx Hypercholesterolemia: Yes Hx Hypertension: Yes - PULMONARY Hx Respiratory Disorders: Yes Hx Asthma: Yes Hx Bronchitis: Yes Hx Pneumonia: Yes Hx Respiratory Tract Infection: Yes Hx Sleep Apnea: Yes - NEUROLOGICAL Hx Neurological Disorder: No - HEENT Hx HEENT Problems: No - RENAL Hx Chronic Kidney Disease: Yes Hx Kidney Stones: Yes - ENDOCRINE/METABOLIC Hx Endocrine Disorders: No - HEMATOLOGICAL/ONCOLOGICAL Hx Blood Disorders: Yes Hx Anemia: Yes Hx Blood Transfusions: Yes - INTEGUMENTARY Hx Dermatological Problems: Yes Other/Comment: healed lower leg ulcers - MUSCULOSKELETAL/RHEUMATOLOGICAL Hx Musculoskeletal Disorders: Yes Hx Arthritis: Yes Hx Falls: No - GASTROINTESTINAL Hx Gastrointestinal Disorders: Yes Hx Gall Bladder Disease: Yes Hx Gastritis: Yes - GENITOURINARY/GYNECOLOGICAL Hx Genitourinary Disorders: No - PSYCHIATRIC Hx Substance Use: No - SURGICAL HISTORY Hx Surgeries: Yes Hx Arthroscopy: Yes Hx Herniorrhaphy: Yes (2010) Hx Vascular Surgery: Yes Other/Comment: Vena Cava Filter on R groin for DVT L Leg in 2009. Mar 2015 R leg clot. 2009 L leg clot - ANESTHESIA Hx Anesthesia: Yes Hx Anesthesia Reactions: No Hx Malignant Hyperthermia: No Meds Allergies/Adverse Reactions: Allergies Allergy/AdvReac Type Severity Reaction Status Date / Time Penicillins Allergy Severe ANAPHYLAXIS Verified 06/21/18 12:16 Physical Exam - Constitutional Appears: Chronically Ill - Head Exam Head Exam: NORMOCEPHALIC - Eye Exam Eye Exam: Normal appearance Pupil Exam: NORMAL ACCOMODATION - ENT Exam ENT Exam: Normal Exam - Neck Exam Neck exam: Positive for: Normal Inspection - Respiratory Exam Respiratory Exam: Decreased Breath Sounds - Cardiovascular Exam Cardiovascular Exam: REGULAR RHYTHM - GI/Abdominal Exam GI & Abdominal Exam: Normal Bowel Sounds - Rectal Exam Rectal Exam: Deferred - Exam Exam: Scrotal Swelling - Extremities Exam Extremities exam: Positive for: pedal edema - Back Exam Back exam: NORMAL INSPECTION - Neurological Exam Neurological exam: Oriented x3 Results - Vital Signs Recent Vital Signs: Last Vital Signs Temp 98.3 F 06/21/18 20:00 Pulse 82 06/21/18 20:00 Resp 16 06/21/18 20:00 BP 120/83 06/21/18 20:00 Pulse Ox 96 06/21/18 20:00 - Labs Result Diagrams: 06/21/18 13:37 06/21/18 13:37 Labs: Laboratory Results - last 24 hr 06/21/18 06/21/18 06/21/18 13:37 13:37 13:45 WBC 11.7 H RBC 4.68 Hgb 13.8 D Hct 41.4 MCV 88.5 D MCH 29.6 MCHC 33.4 RDW 14.7 H Plt Count 394 D MPV 8.1 Neut % (Auto) 78.4 H Lymph % (Auto) 9.2 L Ida % (Auto) 11.4 H Eos % (Auto) 0.5 Baso % (Auto) 0.5 Neut # (Auto) 9.2 H Lymph # (Auto) 1.1 Ida # (Auto) 1.3 H Eos # (Auto) 0.1 Baso # (Auto) 0.1 Neutrophils % (Manual) 89 H Lymphocytes % (Manual) 5 L Monocytes % (Manual) 5 Eosinophils % (Manual) 1 Platelet Estimate Normal RBC Morphology Normal Sodium 139 Potassium 4.0 Chloride 101 Carbon Dioxide 27 Anion Gap 15 BUN 14 Creatinine 0.9 Est GFR ( Amer) > 60 Est GFR (Non-Af Amer) > 60 Random Glucose 104 Lactic Acid Calcium 9.2 Total Bilirubin 1.1 AST 15 L D ALT < 6 L Alkaline Phosphatase 71 Troponin I < 0.0120 Total Protein 8.0 Albumin 4.4 Globulin 3.7 Albumin/Globulin Ratio 1.2 Lipase 79 Urine Color Yellow Urine Clarity Clear Urine pH 6.0 Ur Specific [place] 1.012 Urine Protein Negative Urine Glucose (UA) Normal Urine Ketones Negative Urine Blood Negative Urine Nitrate Negative Urine Bilirubin Negative Urine Urobilinogen Normal Ur Leukocyte Esterase Neg Urine WBC (Auto) < 1 Urine RBC (Auto) 2 06/21/18 13:45 WBC RBC Hgb Hct MCV MCH MCHC RDW Plt Count MPV Neut % (Auto) Lymph % (Auto) Ida % (Auto) Eos % (Auto) Baso % (Auto) Neut # (Auto) Lymph # (Auto) Ida # (Auto) Eos # (Auto) Baso # (Auto) Neutrophils % (Manual) Lymphocytes % (Manual) Monocytes % (Manual) Eosinophils % (Manual) Platelet Estimate RBC Morphology Sodium Potassium Chloride Carbon Dioxide Anion Gap BUN Creatinine Est GFR ( Amer) Est GFR (Non-Af Amer) Random Glucose Lactic Acid 1.1 Calcium Total Bilirubin AST ALT Alkaline Phosphatase Troponin I Total Protein Albumin Globulin Albumin/Globulin Ratio Lipase Urine Color Urine Clarity Urine pH Ur Specific [place] Urine Protein Urine Glucose (UA) Urine Ketones Urine Blood Urine Nitrate Urine Bilirubin Urine Urobilinogen Ur Leukocyte Esterase Urine WBC (Auto) Urine RBC (Auto) Assessment & Plan (1) Wilma-rectal abscess Status: Acute (2) Vascular insufficiency of extremity Status: Acute (3) Degenerative joint disease Status: Acute Priority: Medium (4) Obesity Status: Chronic Priority: Medium
[2018-06-21] MEDS ORDERED: Morphine 4 MG/ML VIAL IVP PRN (23:15)
[2018-06-22] MEDS: Meropenem 500 MG in Sodium Chloride 0.9% 100 ML IVPB SCH ×3 (03:43→19:00)
--- NOTE | 2018-06-22 03:50 | OP ---
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 PROCEDURE CARRIED OUT: Incision and drainage placed on the seton and debridement of perineum. No specimen was submitted except for culture. SURGEON: Jason Diaz Jr., MD MEDICAL RECEPTIONIST BILLER: Grisel Bell DO ANESTHESIOLOGIST: Dr. Mcdaniel. INDICATIONS: The patient is a 52-year-old man with a variety of other medical problems, presently on Xarelto. 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 OPERATIVE FINDINGS: There was a watery pus-type fluid that was drained, but this was already spontaneously draining. The area was completely irrigated out. A seton was placed from an opening in the external fistula through the cavity that we created. Whether this was the actual tract or a remnant of a tract is unclear. Nonetheless, this was completely irrigated out, debrided and packed. The bleeding was controlled with the use of cautery and Xylocaine with epinephrine. We were unable to reverse the Xarelto and the patient was well aware of that issue. We then dressed the wound and terminated the procedure. Blood loss was less than 50 mL. OPERATION CARRIED OUT: Incision, drainage of perirectal abscess, placed on the seton and debridement. Jason Diaz Jr., MD cc:
--- NOTE | 2018-06-22 07:29 | CP.PCM.PN ---
Subjective - Date & Time of Evaluation Date of Evaluation: 06/22/18 Time of Evaluation: 06:55 - Subjective Subjective: Progress note for Dr. Diaz. Patient examined at bedside. POD 1 s/p I&D for perirectal abcess. No acute events overnight. Patient reports minimal pain and has not needed pain medication. Patient is voiding and reports that he no longer hesitates to initiate urination. He is tolerating regular diet. Patient has not yet had a bowel movement. He denies nausea, vomiting, chest pain, SOB, or dysuria. Objective - Vital Signs/Intake and Output Vital Signs (last 24 hours): Temp Pulse Resp BP Pulse Ox 97.7 F 88 20 117/73 95 06/21/18 23:30 06/21/18 23:30 06/21/18 23:30 06/21/18 23:30 06/22/18 00:55 - Medications Medications: Current Medications Acetaminophen (Tylenol 325mg Tab) 650 mg PO Q6 PRN PRN Reason: Fever >100.4 F Allopurinol (Zyloprim) 100 mg PO DAILY [facility] Meropenem 500 mg/ Sodium (Chloride) 100 mls @ 100 mls/hr IVPB Q8H [facility]; Protocol Stop: 06/26/18 20:01 Last Admin: 06/22/18 03:43 Dose: 100 mls/hr Vancomycin/Sodium Chloride (Vancomycin 1 Gm/Ns 200 Ml) 1 gm in 200 mls @ 133 ml s/hr IVPB Q24H [facility]; Protocol Stop: 06/27/18 14:01 Morphine Sulfate (Morphine) 4 mg IVP Q4 PRN PRN Reason: Pain, severe (8-10) Oxycodone/Acetaminophen (Percocet 5/325 Mg Tab) 1 tab PO Q4H PRN PRN Reason: Pain, moderate (4-7) Stop: 06/24/18 17:15 Pantoprazole Sodium (Protonix Ec Tab) 40 mg PO DAILY [facility] - Labs Labs: 06/21/18 13:37 06/21/18 13:37 - Constitutional Appears: Non-toxic, No Acute Distress - Head Exam Head Exam: ATRAUMATIC, NORMAL INSPECTION, NORMOCEPHALIC - Eye Exam Eye Exam: EOMI, Normal appearance - ENT Exam ENT Exam: Mucous Membranes Moist, Normal Exam - Neck Exam Neck Exam: Normal Inspection - Respiratory Exam Respiratory Exam: NORMAL BREATHING PATTERN - Cardiovascular Exam Cardiovascular Exam: REGULAR RHYTHM, +S1, +S2 - GI/Abdominal Exam GI & Abdominal Exam: Distended, Soft, Tenderness, Normal Bowel Sounds Additional comments: Mild b/l lower quadrant tenderness secondary to b/l hernias. Pendulous abdomen. - Rectal Exam Additional comments: Dressing with some blood saturation, area free of erythema or warmth, silk sutures in place. - Extremities Exam Extremities Exam: Normal Inspection - Back Exam Back Exam: NORMAL INSPECTION - Neurological Exam Neurological Exam: Alert, Awake, Oriented x3 - Psychiatric Exam Psychiatric exam: Normal Affect, Normal Mood - Skin Skin Exam: Dry, Normal Color, Warm Assessment and Plan - Assessment and Plan (Free Text) Assessment: Patient is a 52 year old male post-op day 1 of I&D of perirectal abscess and seton placement. Plan: F/u AM labs Packing change tomorrow Continue pain management PRN Continue antibiotics F/u wound cultures SCDs Encourage ambulation incentive spirometer further recs as per Dr. Diaz. Janie Nicholson, PGY-1
[2018-06-22 07:33] LABS: BLOOD UREA NITROGEN 15 mg/dL (9-20); CALCIUM 8.6 mg/dl (8.6-10.4); GFR NON-AFRICAN AMERICAN > 60
[2018-06-22 07:54] LABS: BASO # 0.1 K/uL (0.0-0.2); BASO % 0.8 % (0.0-2.0); EOS # 0.2 K/uL (0.0-0.7); EOS % 2.3 % (0.0-4.0); HEMOGLOBIN 12.7 g/dL (12.0-18.0); LYMPH % 11.2 % (20.0-40.0); MEAN CELL VOLUME 87.9 fL (80.0-94.0); MEAN CORPUSCULAR HEMOGLOBIN 29.8 pg (27.0-31.0); MEAN PLATELET VOLUME 7.7 fL (7.2-11.7); MONO # 0.9 K/uL (0.0-0.8); MONO % 10.6 % (0.0-10.0); NEUT # 6.4 K/uL (1.8-7.0); NEUT % 75.1 % (50.0-75.0); RBC 4.26 Mil/uL (4.40-5.90); RED CELL DISTRIBUTION WIDTH 14.5 % (11.5-14.5); WHITE BLOOD COUNT 8.5 K/uL (4.8-10.8)
[2018-06-22] MEDS: Pantoprazole 40 mg EC Tab PO SCH (09:07)
[2018-06-22] MEDS: Docusate-Senna 50 mg-8.6 mg Tab PO SCH ×2 (11:46→18:10)
[2018-06-22] MEDS: Vancomycin 1 gm/NS 200 ml 1 GM/200 ML BAG IVPB SCH (14:11)
--- NOTE | 2018-06-22 16:37 | CARD ---
APPROVED REPORT Date of service: 06/21/2018 EKG Measurement Heart [id number] <Conclusion> Normal sinus rhythm Incomplete right bundle branch block Borderline ECG
[2018-06-22] MEDS: Enoxaparin 40 mg Syringe SC SCH (21:40)
--- NOTE | 2018-06-22 22:30 | CP.PCM.PN ---
Subjective - Date & Time of Evaluation Date of Evaluation: 06/22/18 Time of Evaluation: 13:20 - Subjective Subjective: patient oriented in all 3 spheres. Complains of pain but refuses narcotic pain relief. Ibuprofen oriented 3 times a day. Mild drainage noted from the wound site. We'll continue antibiotic IV therapy. Repeat lab studies in am. Objective - Vital Signs/Intake and Output Vital Signs (last 24 hours): Temp Pulse Resp BP Pulse Ox 98.9 F 98 H 20 112/75 96 06/22/18 15:54 06/22/18 15:54 06/22/18 15:54 06/22/18 15:54 06/22/18 15:54 - Medications Medications: Current Medications Acetaminophen (Tylenol 325mg Tab) 650 mg PO Q6 PRN PRN Reason: Fever >100.4 F Allopurinol (Zyloprim) 100 mg PO DAILY [facility] Last Admin: 06/22/18 09:07 Dose: 100 mg Enoxaparin Sodium (Lovenox) 40 mg SC HS [facility] Last Admin: 06/22/18 21:40 Dose: 40 mg Meropenem 500 mg/ Sodium (Chloride) 100 mls @ 100 mls/hr IVPB Q8H [facility]; Protocol Stop: 06/26/18 20:01 Last Admin: 06/22/18 19:00 Dose: 100 mls/hr Vancomycin/Sodium Chloride (Vancomycin 1 Gm/Ns 200 Ml) 1 gm in 200 mls @ 133 mls/hr IVPB Q24H [facility]; Protocol Stop: 06/27/18 14:01 Last Admin: 06/22/18 14:11 Dose: 133 mls/hr Ibuprofen (Motrin Tab) 800 mg PO TID PRN PRN Reason: Pain, moderate (4-7) Last Admin: 06/22/18 14:11 Dose: 800 mg Pantoprazole Sodium (Protonix Ec Tab) 40 mg PO DAILY [facility] Last Admin: 06/22/18 09:07 Dose: 40 mg Senna/Docusate Sodium (Senokot S 50 Mg-8.6 Mg) 1 tab PO BID [facility] Last Admin: 06/22/18 18:10 Dose: 1 tab Tramadol HCl (Ultram) 50 mg PO TID PRN PRN Reason: Pain, moderate (4-7) - Labs Labs: 06/22/18 07:11 06/22/18 07:11 - Constitutional Appears: Chronically Ill - Head Exam Head Exam: NORMOCEPHALIC - Eye Exam Eye Exam: Normal appearance Pupil Exam: NORMAL ACCOMODATION - ENT Exam ENT Exam: Normal Oropharynx - Neck Exam Neck Exam: Normal Inspection - Respiratory Exam Respiratory Exam: Decreased Breath Sounds - Cardiovascular Exam Cardiovascular Exam: REGULAR RHYTHM - GI/Abdominal Exam GI & Abdominal Exam: Diminished Bowel Sounds - Rectal Exam Rectal Exam: Deferred - Exam Exam: Scrotal Swelling - Extremities Exam Extremities Exam: Tenderness - Back Exam Back Exam: NORMAL INSPECTION - Neurological Exam Neurological Exam: Oriented x3 - Psychiatric Exam Psychiatric exam: Normal Affect - Skin Skin Exam: Dry Assessment and Plan (1) Wilma-rectal abscess Status: Acute (2) Vascular insufficiency of extremity Status: Acute (3) Degenerative joint disease Status: Acute (4) Obesity Status: Chronic
[2018-06-23] MEDS: Meropenem 500 MG in Sodium Chloride 0.9% 100 ML IVPB SCH ×3 (05:00→20:49)
[2018-06-23] MEDS ORDERED: HYDROmorphone 1 mg/ml ISec IVP ONE (07:00)
--- NOTE | 2018-06-23 07:44 | CP.PCM.PN ---
Subjective - Date & Time of Evaluation Date of Evaluation: 06/23/18 Time of Evaluation: 07:00 - Subjective Subjective: SURGERY PROGRESS NOTE FOR DR. LOPEZ Patient seen and examined at bedside. He states that he has not had a BM yet since his surgery. Pain is controlled. He is tolerating diet. Packing was changed this AM. Pt was offered pain medication but refused. Objective - Vital Signs/Intake and Output Vital Signs (last 24 hours): Temp Pulse Resp BP Pulse Ox 97.5 F L 73 20 111/76 95 06/22/18 23:28 06/22/18 23:28 06/22/18 23:28 06/22/18 23:28 06/22/18 23:28 Intake and Output: 06/23/18 06/23/18 06:59 18:59 Intake Total 800 Output Total 600 Balance 200 - Medications Medications: Current Medications Acetaminophen (Tylenol 325mg Tab) 650 mg PO Q6 PRN PRN Reason: Fever >100.4 F Allopurinol (Zyloprim) 100 mg PO DAILY [facility] Last Admin: 06/22/18 09:07 Dose: 100 mg Enoxaparin Sodium (Lovenox) 40 mg SC HS [facility] Last Admin: 06/22/18 21:40 Dose: 40 mg Meropenem 500 mg/ Sodium (Chloride) 100 mls @ 100 mls/hr IVPB Q8H [facility]; Protocol Stop: 06/26/18 20:01 Last Admin: 06/23/18 05:00 Dose: 100 mls/hr Vancomycin/Sodium Chloride (Vancomycin 1 Gm/Ns 200 Ml) 1 gm in 200 mls @ 133 mls/hr IVPB Q24H [facility]; Protocol Stop: 06/27/18 14:01 Last Admin: 06/22/18 14:11 Dose: 133 mls/hr Ibuprofen (Motrin Tab) 800 mg PO TID PRN PRN Reason: Pain, moderate (4-7) Last Admin: 06/22/18 14:11 Dose: 800 mg Pantoprazole Sodium (Protonix Ec Tab) 40 mg PO DAILY [facility] Last Admin: 06/22/18 09:07 Dose: 40 mg Senna/Docusate Sodium (Senokot S 50 Mg-8.6 Mg) 1 tab PO BID [facility] Last Admin: 06/22/18 18:10 Dose: 1 tab Tramadol HCl (Ultram) 50 mg PO TID PRN PRN Reason: Pain, moderate (4-7) - Labs Labs: 06/22/18 07:11 06/22/18 07:11 - Constitutional Appears: Non-toxic, No Acute Distress - Eye Exam Eye Exam: EOMI, Normal appearance - Respiratory Exam Respiratory Exam: NORMAL BREATHING PATTERN. absent: Respiratory Distress - Cardiovascular Exam Cardiovascular Exam: +S1, +S2. absent: Tachycardia - GI/Abdominal Exam GI & Abdominal Exam: Soft. absent: Distended, Firm, Tenderness - Rectal Exam Additional comments: Seton suture in place, packing in 2 locations, smaller area removed, larger area repacked. No drainage able to be expressed. Tender. - Neurological Exam Neurological Exam: Alert, Oriented x3 - Psychiatric Exam Psychiatric exam: Normal Affect, Normal Mood - Skin Skin Exam: Dry, Warm Assessment and Plan - Assessment and Plan (Free Text) Assessment: 52 year old male s/p I&D of perirectal abscess and seton placement, POD#2 Plan: - Afebrile, VSS - WBC 8.5, from 11.7 yesterday - Wound cx: no growth @ 24 hrs - Packing changed this AM - Continue antibiotics - Encourage ambulation and IS use - Further recs as per Dr. Joe Marin PGY-4
[2018-06-23] MEDS: Pantoprazole 40 mg EC Tab PO SCH (09:12)
[2018-06-23] MEDS: Docusate-Senna 50 mg-8.6 mg Tab PO SCH ×2 (09:16→17:59)
[2018-06-23] MEDS: Vancomycin 1 gm/NS 200 ml 1 GM/200 ML BAG IVPB SCH (13:35)
--- NOTE | 2018-06-23 21:08 | CP.PCM.PN ---
Subjective - Date & Time of Evaluation Date of Evaluation: 06/23/18 Time of Evaluation: 15:40 - Subjective Subjective: patient is alert and responsive. Packing of the surg was changed today by surgical residen. Patient tolerating pain with ibuprofen. WBC count 8500 and hematocrit 37 as of today. continue antibiotic therapy. Objective - Vital Signs/Intake and Output Vital Signs (last 24 hours): Temp Pulse Resp BP Pulse Ox 97.5 F L 77 20 128/88 95 06/23/18 08:16 06/23/18 08:16 06/23/18 08:16 06/23/18 08:16 06/23/18 08:16 - Medications Medications: Current Medications Acetaminophen (Tylenol 325mg Tab) 650 mg PO Q6 PRN PRN Reason: Fever >100.4 F Albuterol Sulfate (Albuterol 0.042% Inhal Leta (1.25mg/3ml) Ud) 1.25 mg INH RTID [facility]OM[facility] Allopurinol (Zyloprim) 100 mg PO DAILY [facility] Last Admin: 06/23/18 09:12 Dose: 100 mg Enoxaparin Sodium (Lovenox) 40 mg SC HS [facility] Last Admin: 06/22/18 21:40 Dose: 40 mg Meropenem 500 mg/ Sodium (Chloride) 100 mls @ 100 mls/hr IVPB Q8H [facility]; Protocol Stop: 06/26/18 20:01 Last Admin: 06/23/18 20:49 Dose: 100 mls/hr Vancomycin/Sodium Chloride (Vancomycin 1 Gm/Ns 200 Ml) 1 gm in 200 mls @ 133 mls/hr IVPB Q24H [facility]; Protocol Stop: 06/27/18 14:01 Last Admin: 06/23/18 13:35 Dose: 133 mls/hr Ibuprofen (Motrin Tab) 800 mg PO TID PRN PRN Reason: Pain, moderate (4-7) Last Admin: 06/23/18 18:02 Dose: 800 mg Pantoprazole Sodium (Protonix Ec Tab) 40 mg PO DAILY [facility] Last Admin: 06/23/18 09:12 Dose: 40 mg Senna/Docusate Sodium (Senokot S 50 Mg-8.6 Mg) 1 tab PO BID [facility] Last Admin: 06/23/18 17:59 Dose: 1 tab Tramadol HCl (Ultram) 50 mg PO TID PRN PRN Reason: Pain, moderate (4-7) Last Admin: 06/23/18 09:13 Dose: 50 mg - Labs Labs: 06/22/18 07:11 06/22/18 07:11 - Constitutional Appears: Chronically Ill - Head Exam Head Exam: NORMOCEPHALIC - Eye Exam Eye Exam: Normal appearance Pupil Exam: NORMAL ACCOMODATION - ENT Exam ENT Exam: Normal Exam - Neck Exam Neck Exam: Normal Inspection - Respiratory Exam Respiratory Exam: Decreased Breath Sounds - Cardiovascular Exam Cardiovascular Exam: REGULAR RHYTHM - GI/Abdominal Exam GI & Abdominal Exam: Normal Bowel Sounds - Rectal Exam Rectal Exam: Deferred - Exam Exam: Testicular Tenderness - Extremities Exam Extremities Exam: Tenderness - Back Exam Back Exam: NORMAL INSPECTION - Neurological Exam Neurological Exam: Oriented x3 - Psychiatric Exam Psychiatric exam: Normal Affect - Skin Skin Exam: Dry Assessment and Plan (1) Wilma-rectal abscess Status: Acute (2) Vascular insufficiency of extremity Status: Acute (3) Degenerative joint disease Status: Acute (4) Obesity Status: Chronic
[2018-06-23] MEDS: Enoxaparin 40 mg Syringe SC SCH (22:00)
[2018-06-24] MEDS: Meropenem 500 MG in Sodium Chloride 0.9% 100 ML IVPB SCH ×3 (04:14→20:48)
--- NOTE | 2018-06-24 07:49 | CP.PCM.PN ---
Subjective - Date & Time of Evaluation Date of Evaluation: 06/24/18 Time of Evaluation: 07:46 - Subjective Subjective: General Surgery Dr. Diaz Pt seen and examined @bedside. No acute events overnight. pt has no complaints this AM. reports improved pain. denies F/C, N/V. has been OOB, ambulating hallways. tolerating diet. Objective - Vital Signs/Intake and Output Vital Signs (last 24 hours): Temp Pulse Resp BP Pulse Ox 98 F 80 20 119/68 98 06/23/18 23:30 06/23/18 23:30 06/23/18 23:30 06/23/18 23:30 06/23/18 23:30 Intake and Output: 06/24/18 06/24/18 06:59 18:59 Intake Total 350 Output Total 400 Balance -50 - Medications Medications: Current Medications Acetaminophen (Tylenol 325mg Tab) 650 mg PO Q6 PRN PRN Reason: Fever >100.4 F Albuterol Sulfate (Albuterol 0.042% Inhal Leta (1.25mg/3ml) Ud) 1.25 mg INH RTID [facility] Allopurinol (Zyloprim) 100 mg PO DAILY [facility] Last Admin: 06/23/18 09:12 Dose: 100 mg Enoxaparin Sodium (Lovenox) 40 mg SC HS [facility] Last Admin: 06/23/18 22:00 Dose: 40 mg Meropenem 500 mg/ Sodium (Chloride) 100 mls @ 100 mls/hr IVPB Q8H [facility]; Protocol Stop: 06/26/18 20:01 Last Admin: 06/24/18 04:14 Dose: 100 mls/hr Vancomycin/Sodium Chloride (Vancomycin 1 Gm/Ns 200 Ml) 1 gm in 200 mls @ 133 mls/hr IVPB Q24H [facility]; Protocol Stop: 06/27/18 14:01 Last Admin: 06/23/18 13:35 Dose: 133 mls/hr Ibuprofen (Motrin Tab) 800 mg PO TID PRN PRN Reason: Pain, moderate (4-7) Last Admin: 06/23/18 18:02 Dose: 800 mg Pantoprazole Sodium (Protonix Ec Tab) 40 mg PO DAILY [facility] Last Admin: 06/23/18 09:12 Dose: 40 mg Senna/Docusate Sodium (Senokot S 50 Mg-8.6 Mg) 1 tab PO BID [facility] Last Admin: 06/23/18 17:59 Dose: 1 tab Tramadol HCl (Ultram) 50 mg PO TID PRN PRN Reason: Pain, moderate (4-7) Last Admin: 06/23/18 09:13 Dose: 50 mg - Labs Labs: 06/22/18 07:11 06/22/18 07:11 - Constitutional Appears: Non-toxic, No Acute Distress - Eye Exam Eye Exam: Normal appearance - ENT Exam ENT Exam: Mucous Membranes Moist - Respiratory Exam Respiratory Exam: NORMAL BREATHING PATTERN. absent: Accessory Muscle Use, Respiratory Distress - Cardiovascular Exam Cardiovascular Exam: REGULAR RHYTHM. absent: Bradycardia, Tachycardia - GI/Abdominal Exam GI & Abdominal Exam: Soft. absent: Distended, Tenderness - Rectal Exam Additional comments: juan luis-anal packing in place silk suture seton in place improved erythema and edema - Extremities Exam Extremities Exam: Normal Inspection - Neurological Exam Neurological Exam: Alert, Awake, Oriented x3 - Psychiatric Exam Psychiatric exam: Normal Affect - Skin Skin Exam: Dry, Warm Assessment and Plan - Assessment and Plan (Free Text) Assessment: 52 y/o M POD#3 s/p I&D of juan luis-anal abscess and seton placement Plan: - Wound cx: GPC, f/u final report - next packing change 06/25-06/26 - Cont IV abx - stool softener - Encourage OOB to chair/Amb/IS use Pt discussed w/ Dr. Joe Coe DO PGY3
[2018-06-24 08:18] LABS: MEAN CELL VOLUME 88.7 fL (80.0-94.0); MEAN CORPUSCULAR HEMOGLOBIN 29.4 pg (27.0-31.0); MEAN CORPUSCULAR HGB CONC 33.2 g/dL (33.0-37.0); MEAN PLATELET VOLUME 7.5 fL (7.2-11.7); RBC 4.42 Mil/uL (4.40-5.90); RED CELL DISTRIBUTION WIDTH 14.5 % (11.5-14.5); WHITE BLOOD COUNT 6.3 K/uL (4.8-10.8)
[2018-06-24 08:28] LABS: BLOOD UREA NITROGEN 17 mg/dL (9-20); CALCIUM 8.8 mg/dl (8.6-10.4); GFR NON-AFRICAN AMERICAN > 60
[2018-06-24] MEDS: Albuterol 0.042% Inhal Sol (1.25 mg/3 mL) UD INH SCH ×3 (08:38→21:00)
[2018-06-24] MEDS: Docusate-Senna 50 mg-8.6 mg Tab PO SCH ×2 (09:51→17:30)
[2018-06-24] MEDS: Pantoprazole 40 mg EC Tab PO SCH (09:52)
[2018-06-24] MEDS: Vancomycin 1 gm/NS 200 ml 1 GM/200 ML BAG IVPB SCH (13:35)
--- NOTE | 2018-06-24 19:26 | CP.PCM.PN ---
Subjective - Date & Time of Evaluation Date of Evaluation: 06/24/18 Time of Evaluation: 16:40 - Subjective Subjective: patient continues to gluteal pain. Drainage persists and wound packing was changed today. Patient was able to ambulate today. continue IV antibiotic therapy. Repeat labs in a.m. Objective - Vital Signs/Intake and Output Vital Signs (last 24 hours): Temp Pulse Resp BP Pulse Ox 98.3 F 95 H 20 116/75 95 06/24/18 15:30 06/24/18 15:30 06/24/18 15:30 06/24/18 15:30 06/24/18 15:30 - Medications Medications: Current Medications Acetaminophen (Tylenol 325mg Tab) 650 mg PO Q6 PRN PRN Reason: Fever >100.4 F Albuterol Sulfate (Albuterol 0.042% Inhal Leta (1.25mg/3ml) Ud) 1.25 mg INH RTID [facility] Last Admin: 06/24/18 13:18 Dose: 1.25 mg Allopurinol (Zyloprim) 100 mg PO DAILY [facility] Last Admin: 06/24/18 09:52 Dose: 100 mg Enoxaparin Sodium (Lovenox) 40 mg SC HS [facility] Last Admin: 06/23/18 22:00 Dose: 40 mg Meropenem 500 mg/ Sodium (Chloride) 100 mls @ 100 mls/hr IVPB Q8H [facility]; Protocol Stop: 06/26/18 20:01 Last Admin: 06/24/18 12:20 Dose: 100 mls/hr Vancomycin/Sodium Chloride (Vancomycin 1 Gm/Ns 200 Ml) 1 gm in 200 mls @ 133 mls/hr IVPB Q24H [facility]; Protocol Stop: 06/27/18 14:01 Last Admin: 06/24/18 13:35 Dose: 133 mls/hr Ibuprofen (Motrin Tab) 800 mg PO TID PRN PRN Reason: Pain, moderate (4-7) Last Admin: 06/23/18 18:02 Dose: 800 mg Pantoprazole Sodium (Protonix Ec Tab) 40 mg PO DAILY [facility] Last Admin: 06/24/18 09:52 Dose: 40 mg Senna/Docusate Sodium (Senokot S 50 Mg-8.6 Mg) 1 tab PO BID [facility] Last Admin: 06/24/18 17:30 Dose: 1 tab Tramadol HCl (Ultram) 50 mg PO TID PRN PRN Reason: Pain, moderate (4-7) Last Admin: 06/24/18 17:42 Dose: 50 mg - Labs Labs: 06/24/18 08:06 06/24/18 08:06 - Constitutional Appears: No Acute Distress - Head Exam Head Exam: NORMOCEPHALIC - Eye Exam Eye Exam: Normal appearance Pupil Exam: NORMAL ACCOMODATION - ENT Exam ENT Exam: Normal Exam - Neck Exam Neck Exam: Normal Inspection - Respiratory Exam Respiratory Exam: Decreased Breath Sounds - Cardiovascular Exam Cardiovascular Exam: REGULAR RHYTHM - GI/Abdominal Exam GI & Abdominal Exam: Normal Bowel Sounds - Rectal Exam Rectal Exam: Deferred - Exam Exam: Scrotal Swelling - Extremities Exam Extremities Exam: Joint Swelling - Back Exam Back Exam: NORMAL INSPECTION - Neurological Exam Neurological Exam: Oriented x3 - Psychiatric Exam Psychiatric exam: Normal Affect - Skin Skin Exam: Dry Assessment and Plan (1) Wilma-rectal abscess Status: Acute (2) Vascular insufficiency of extremity Status: Acute (3) Degenerative joint disease Status: Acute (4) Obesity Status: Chronic
[2018-06-24] MEDS: Enoxaparin 40 mg Syringe SC SCH (21:33)
--- NOTE | 2018-06-25 07:33 | CP.PCM.PN ---
Subjective - Date & Time of Evaluation Date of Evaluation: 06/25/18 Time of Evaluation: 06:30 - Subjective Subjective: Progress note for Dr. Diaz. Patient seen and examined at bedside. Patient resting comfortably in bed. No acute events overnight. He has had a bowel movement and is ambulating in the halls. Denies pain and refused pain for wound packing today. Denies fever, chills, diarrhea, nausea and vomiting. Objective - Vital Signs/Intake and Output Vital Signs (last 24 hours): Temp Pulse Resp BP Pulse Ox 97.8 F 95 H 20 115/72 95 06/24/18 23:23 06/24/18 23:23 06/24/18 23:23 06/24/18 23:23 06/24/18 23:23 Intake and Output: 06/25/18 06/25/18 06:59 18:59 Intake Total 400 Output Total 500 Balance -100 - Medications Medications: Current Medications Acetaminophen (Tylenol 325mg Tab) 650 mg PO Q6 PRN PRN Reason: Fever >100.4 F Albuterol Sulfate (Albuterol 0.042% Inhal Leta (1.25mg/3ml) Ud) 1.25 mg INH RTID [facility] Last Admin: 06/24/18 21:00 Dose: 1.25 mg Allopurinol (Zyloprim) 100 mg PO DAILY [facility] Last Admin: 06/24/18 09:52 Dose: 100 mg Enoxaparin Sodium (Lovenox) 40 mg SC HS [facility] Last Admin: 06/24/18 21:33 Dose: 40 mg Vancomycin/Sodium Chloride (Vancomycin 1 Gm/Ns 200 Ml) 1 gm in 200 mls @ 133 mls/hr IVPB Q24H [facility]; Protocol Stop: 06/27/18 14:01 Last Admin: 06/24/18 13:35 Dose: 133 mls/hr Ibuprofen (Motrin Tab) 800 mg PO TID PRN PRN Reason: Pain, moderate (4-7) Last Admin: 06/23/18 18:02 Dose: 800 mg Pantoprazole Sodium (Protonix Ec Tab) 40 mg PO DAILY [facility] Last Admin: 06/24/18 09:52 Dose: 40 mg Senna/Docusate Sodium (Senokot S 50 Mg-8.6 Mg) 1 tab PO BID [facility] Last Admin: 02/24/19 17:30 Dose: 1 tab Tramadol HCl (Ultram) 50 mg PO TID PRN PRN Reason: Pain, moderate (4-7) Last Admin: 06/24/18 17:42 Dose: 50 mg - Labs Labs: 06/24/18 08:06 06/24/18 08:06 - Constitutional Appears: Non-toxic, No Acute Distress - Head Exam Head Exam: ATRAUMATIC, NORMOCEPHALIC - Eye Exam Eye Exam: Normal appearance - ENT Exam ENT Exam: Mucous Membranes Moist - Neck Exam Neck Exam: Normal Inspection - Respiratory Exam Respiratory Exam: NORMAL BREATHING PATTERN - GI/Abdominal Exam GI & Abdominal Exam: Soft. absent: Tenderness - Rectal Exam Additional comments: juan luis-anal packing in place silk suture seton in place improved erythema and edema - Neurological Exam Neurological Exam: Alert, Awake, Oriented x3 - Psychiatric Exam Psychiatric exam: Normal Affect, Normal Mood Assessment and Plan - Assessment and Plan (Free Text) Assessment: 52 y/o M POD#4 s/p I&D of juan luis-anal abscess and seton placement Plan: - Wound cx: MRSA, beta hemolytic Strep group B - Wound packing changed today, continue wound packing daily - Cont IV abx - stool softener - Encourage OOB to chair/Amb/IS use Further recs as per Dr. Joe Nicholson, PGY1
[2018-06-25] MEDS: Albuterol 0.042% Inhal Sol (1.25 mg/3 mL) UD INH SCH ×2 (07:35→13:27)
[2018-06-25] MEDS: Docusate-Senna 50 mg-8.6 mg Tab PO SCH ×2 (09:25→18:07)
[2018-06-25] MEDS: Pantoprazole 40 mg EC Tab PO SCH (09:25)
--- NOTE | 2018-06-25 11:51 | CP.PCM.CON ---
History of Present Illness - History of Present Illness History of Present Illness: 52 year old male presents to the ED for evaluation of right-sided gluteal pain which began 5 days ago. . He has history of chronic foot and leg ulcers bilaterally. Has Hx MRSA in past wound + MRSA IV Vanco ordered - Medical History PMH: Anemia, Arthritis, Asthma, Bronchitis, Depression, Deep Vein Thrombosis, Gastritis, Gall Bladder Disease, HTN, Hypercholesterolemia, Kidney Stones, Wilma pheral Edema, Pneumonia, Chronic Kidney Disease, Sleep Apnea Surgical History: No Surg Hx Review of Systems - Review of Systems All systems: reviewed and no additional remarkable complaints except - Constitutional Constitutional: As Per HPI - EENT Eyes: absent: As Per HPI, Blind Spots, Blurred Vision, Change in Vision, Decreased Night Vision, Diplopia, Discharge, Dry Eye, Exophthalmos, Floaters, Irritation, Itchy Eyes, Loss of Peripheral Vision, Pain, Photophobia, Requires Corrective Lenses, Sees Flashes, Spots in Vision, Tunnel Vision, Other Visual Disturbances, Loss of Vision, Other Nose/Mouth/Throat: absent: As Per HPI, Epistaxis, Nasal Congestion, Nasal Discharge, Nasal Obstruction, Nasal Trauma, Nose Pain, Post Nasal Drip, Sinus Pain, Sinus Pressure, Bleeding Gums, Change in Voice, Dental Pain, Dry Mouth, Dysphagia, Halitosis, Hoarsness, Lip Swelling, Mouth Lesions, Mouth Pain, Odynophagia, Sore Throat, Throat Swelling, Tongue Swelling, Facial Pain, Neck Pain, Neck Mass, Other - Cardiovascular Cardiovascular: As Per HPI - Respiratory Respiratory: As Per HPI - Gastrointestinal Gastrointestinal: absent: As Per HPI, Abdominal Pain, Belching, Bloating, Change in Bowel Habits, Change in Stool Character, Coffee Ground Emesis, Constipation, Cramping, Diarrhea, Dyspepsia, Dysphagia, Early Satiety, Excessive Flatus, Fecal Incontinence, Heartburn, Hematemesis, Hematochezia, Loose Stools, Melena, Nausea, Odynophagia, Temesmus, Vomiting, Other - Genitourinary Genitourinary: absent: As Per HPI, Change in Urinary Stream, Difficulty U rinating, Dysuria, Flank Pain, Hematuria, Pyuria, Nocturia, Urinary Incontinence, Urinary Frequency, Urinary Hesitance, Urinary Urgency, Voiding Freq/Small Amts, Freq UTI, Hx Renal/Bladder Calculi, Hx /Renal Surgery, Bladder Distension, Other - Musculoskeletal Musculoskeletal: absent: As Per HPI, Abnormal Gait, Arthralgias, Atrophy, Back Pain, Deformity, Joint Swelling, Limited Range of Motion, Loss of Height, Muscle Cramps, Muscle Weakness, Myalgias, Neck Pain, Numbness, Radiating Pain into Limb, Stiffness, Tingling, Other - Integumentary Integumentary: As Per HPI, Skin Pain, Wounds - Neurological Neurological: absent: As Per HPI, Abnormal Gait, Abnormal Hearing, Abnormal Movements, Abnormal Speech, Behavioral Changes, Burning Sensations, Confusion, Convulsions, Disequilibrium, Dizziness, Numbness, Focal Weakness, Frequent Falls, Headaches, Lack of Coordination, Loss of Vision, Memory Loss, Paresthesias, Radicular Pain, Restless Legs, Sensory Deficit, Syncope, Tingling, Tremor, Vertigo, Weakness, Other Visual Disturbances, Other - Psychiatric Psychiatric: absent: As Per HPI, Abnormal Sleep Pattern, Anhedonia, Anxiety, Auditory Hallucinations, Behavioral Changes, Change in Appetite, Change in Libido, Confusion, Depression, Difficulty Concentrating, Hallucinations, Homicidal Ideation, Hopelessness, Irritability, Memory Loss, Mood Swings, Panic Attacks, Paranoia, Suicidal Ideation, Visual Hallucinations, Tactile Hallucin ations, Other - Endocrine Endocrine: absent: As Per HPI, Change in Body Appearance, Change in Libido, Cold Intolorance, Deepening of Voice, Excessive Sweating, Fatigue, Flushing, Heat Intolorance, Increase in Ring/Shoe/Hat Size, Palpitations, Polydipsia, Polyph agia, Polyuria, Other - Hematologic/Lymphatic Hematologic: absent: As Per HPI, Easy Bleeding, Easy Bruising, Lymphadenopathy, Other Past Patient History - Infectious Disease Hx of Infectious Diseases: None, C.diff - Tetanus Immunizations Tetanus Immunization: Up to Date - Past Medical History & Family History Past Medical History?: Yes - Past Social History Smoking Status: Former Smoker - CARDIAC Hx Cardiac Disorders: Yes Hx Hypercholesterolemia: Yes Hx Hypertension: Yes - PULMONARY Hx Respiratory Disorders: Yes Hx Asthma: Yes Hx Bronchitis: Yes Hx Pneumonia: Yes Hx Respiratory Tract Infection: Yes Hx Sleep Apnea: Yes - NEUROLOGICAL Hx Neurological Disorder: No - HEENT Hx HEENT Problems: No - RENAL Hx Chronic Kidney Disease: Yes Hx Kidney Stones: Yes - ENDOCRINE/METABOLIC Hx Endocrine Disorders: No - HEMATOLOGICAL/ONCOLOGICAL Hx Blood Disorders: Yes Hx Anemia: Yes Hx Blood Transfusions: Yes - INTEGUMENTARY Hx Dermatological Problems: Yes Other/Comment: healed lower leg ulcers - MUSCULOSKELETAL/RHEUMATOLOGICAL Hx Musculoskeletal Disorders: Yes Hx Arthritis: Yes - GASTROINTESTINAL Hx Gastrointestinal Disorders: Yes Hx Gall Bladder Disease: Yes Hx Gastritis: Yes - GENITOURINARY/GYNECOLOGICAL Hx Genitourinary Disorders: No - PSYCHIATRIC Hx Substance Use: No - SURGICAL HISTORY Hx Surgeries: Yes Hx Arthroscopy: Yes Hx Herniorrhaphy: Yes (2010) Hx Vascular Surgery: Yes Other/Comment: Vena Cava Filter on R groin for DVT L Leg in 2009. Mar 2015 R leg clot. 2008 L leg clot - ANESTHESIA Hx Anesthesia: Yes Hx Anesthesia Reactions: No Hx Malignant Hyperthermia: No Meds Allergies/Adverse Reactions: Allergies Allergy/AdvReac Type Severity Reaction Status Date / Time Penicillins Allergy Severe ANAPHYLAXIS Verified 06/21/18 12:16 - Medications Medications: Current Medications Acetaminophen (Tylenol 325mg Tab) 650 mg PO Q6 PRN PRN Reason: Fever >100.4 F Albuterol Sulfate (Albuterol 0.042% Inhal Leta (1.25mg/3ml) Ud) 1.25 mg INH RTID [facility] Last Admin: 06/25/18 07:35 Dose: Not Given Allopurinol (Zyloprim) 100 mg PO DAILY [facility] Last Admin: 06/25/18 09:25 Dose: 100 mg Enoxaparin Sodium (Lovenox) 40 mg SC HS [facility] Last Admin: 06/24/18 21:33 Dose: 40 mg Vancomycin/Sodium Chloride (Vancomycin 1 Gm/Ns 200 Ml) 1 gm in 200 mls @ 133 mls/hr IVPB Q24H [facility]; Protocol Stop: 06/27/18 14:01 Last Admin: 06/24/18 13:35 Dose: 133 mls/hr Ibuprofen (Motrin Tab) 800 mg PO TID PRN PRN Reason: Pain, moderate (4-7) Last Admin: 06/23/18 18:02 Dose: 800 mg Pantoprazole Sodium (Protonix Ec Tab) 40 mg PO DAILY [facility] Last Admin: 06/25/18 09:25 Dose: 40 mg Senna/Docusate Sodium (Senokot S 50 Mg-8.6 Mg) 1 tab PO BID [facility] Last Admin: 06/25/18 09:25 Dose: 1 tab Tramadol HCl (Ultram) 50 mg PO TID PRN PRN Reason: Pain, moderate (4-7) Last Admin: 06/24/18 17:42 Dose: 50 mg Physical Exam - Constitutional Appears: Non-toxic, No Acute Distress, Chronically Ill - Head Exam Head Exam: ATRAUMATIC, NORMAL INSPECTION, NORMOCEPHALIC - Eye Exam Eye Exam: PERRL. absent: Scleral icterus - ENT Exam ENT Exam: Mucous Membranes Dry, Normal External Ear Exam - Neck Exam Neck exam: Negative for: Lymphadenopathy - Respiratory Exam Respiratory Exam: Decreased Breath Sounds, Clear to Auscultation Bilateral, Prolonged Expiratory Phase - Cardiovascular Exam Cardiovascular Exam: REGULAR RHYTHM, +S1, +S2 - GI/Abdominal Exam GI & Abdominal Exam: Diminished Bowel Sounds, Distended, Soft. absent: Guarding, Rebound, Rigid, Tenderness - Rectal Exam Rectal Exam: Deferred - Exam Exam: NORMAL INSPECTION - Extremities Exam Extremities exam: Positive for: pedal edema, pedal pulses present. Negative for: calf tenderness, tenderness - Back Exam Back exam: absent: CVA tenderness (L), CVA tenderness (R), paraspinal tenderness - Neurological Exam Neurological exam: Alert, CN II-XII Intact, Oriented x3, Reflexes Normal - Psychiatric Exam Psychiatric exam: Normal Mood - Skin Skin Exam: Dry, Intact Results - Vital Signs Recent Vital Signs: Last Vital Signs Temp 97.5 F L 06/25/18 07:10 Pulse 76 06/25/18 07:10 Resp 20 06/25/18 07:10 BP 123/85 06/25/18 07:10 Pulse Ox 96 06/25/18 07:10 - Labs Result Diagrams: 06/26/18 07:46 06/26/18 07:46 Assessment & Plan (1) Cellulitis, gluteal, right Status: Acute (2) Wilma-rectal abscess Status: Acute (3) Vascular insufficiency of extremity Status: Acute (4) Anemia Status: Acute Priority: Medium (5) Arthritis Status: Acute - Assessment and Plan (Free Text) Assessment: MRSA positive on culture s/p I and D of abscess GI eval recommended Cont IV rx then PO wound care
[2018-06-25] MEDS: Enoxaparin 40 mg Syringe SC SCH (21:55)
--- NOTE | 2018-06-25 22:36 | CP.PCM.PN ---
Subjective - Date & Time of Evaluation Date of Evaluation: 06/25/18 Time of Evaluation: 13:25 - Subjective Subjective: patient still has an open wound. Consultation requested with Dr. Yang due to past history of MRSA. Patient placed on vancomycin IV. Objective - Vital Signs/Intake and Output Vital Signs (last 24 hours): Temp Pulse Resp BP Pulse Ox 98.2 F 91 H 20 119/77 95 06/25/18 15:59 06/25/18 15:59 06/25/18 15:59 06/25/18 15:59 06/25/18 15:59 Intake and Output: 06/25/18 06/26/18 18:59 06:59 Intake Total 400 500 Output Total 800 Balance -400 500 - Medications Medications: Current Medications Acetaminophen (Tylenol 325mg Tab) 650 mg PO Q6 PRN PRN Reason: Fever >100.4 F Albuterol Sulfate (Albuterol 0.042% Inhal Leta (1.25mg/3ml) Ud) 1.25 mg INH RTID [facility] Last Admin: 06/25/18 13:27 Dose: 1.25 mg Allopurinol (Zyloprim) 100 mg PO DAILY [facility] Last Admin: 06/25/18 09:25 Dose: 100 mg Enoxaparin Sodium (Lovenox) 40 mg SC HS [facility] Last Admin: 06/25/18 21:55 Dose: 40 mg Vancomycin HCl 1,000 mg/ (Sodium Chloride) 250 mls @ 166.6 mls/hr IVPB Q12H [facility]; Protocol Last Admin: 06/25/18 13:44 Dose: 166.6 mls/hr Ibuprofen (Motrin Tab) 800 mg PO TID PRN PRN Reason: Pain, moderate (4-7) Last Admin: 06/23/18 18:02 Dose: 800 mg Pantoprazole Sodium (Protonix Ec Tab) 40 mg PO DAILY [facility] Last Admin: 06/25/18 09:25 Dose: 40 mg Senna/Docusate Sodium (Senokot S 50 Mg-8.6 Mg) 1 tab PO BID [facility] Last Admin: 06/25/18 18:07 Dose: 1 tab Tramadol HCl (Ultram) 50 mg PO TID PRN PRN Reason: Pain, moderate (4-7) Last Admin: 06/24/18 17:42 Dose: 50 mg - Labs Labs: 06/24/18 08:06 06/24/18 08:06 - Constitutional Appears: Chronically Ill - Head Exam Head Exam: NORMOCEPHALIC - Eye Exam Eye Exam: Normal appearance Pupil Exam: NORMAL ACCOMODATION - ENT Exam ENT Exam: Normal Exam - Neck Exam Neck Exam: Normal Inspection - Respiratory Exam Respiratory Exam: Decreased Breath Sounds - Cardiovascular Exam Cardiovascular Exam: REGULAR RHYTHM - GI/Abdominal Exam GI & Abdominal Exam: Normal Bowel Sounds - Rectal Exam Rectal Exam: Deferred - Extremities Exam Extremities Exam: Tenderness - Back Exam Back Exam: NORMAL INSPECTION - Neurological Exam Neurological Exam: Oriented x3 - Skin Skin Exam: Dry Assessment and Plan (1) Wilma-rectal abscess Status: Acute (2) Vascular insufficiency of extremity Status: Acute (3) Degenerative joint disease Status: Acute (4) Obesity Status: Chronic
[2018-06-26] MEDS: Albuterol 0.042% Inhal Sol (1.25 mg/3 mL) UD INH SCH ×3 (07:35→19:07)
[2018-06-26 08:27] LABS: BASO # 0.1 K/uL (0.0-0.2); BASO % 1.2 % (0.0-2.0); EOS # 0.3 K/uL (0.0-0.7); EOS % 3.2 % (0.0-4.0); HEMOGLOBIN 12.7 g/dL (12.0-18.0); LYMPH # 1.2 K/uL (1.0-4.3); LYMPH % 14.5 % (20.0-40.0); MEAN CORPUSCULAR HEMOGLOBIN 30.2 pg (27.0-31.0); MEAN CORPUSCULAR HGB CONC 34.4 g/dL (33.0-37.0); MEAN PLATELET VOLUME 7.6 fL (7.2-11.7); MONO # 0.6 K/uL (0.0-0.8); MONO % 7.7 % (0.0-10.0); NEUT % 73.4 % (50.0-75.0); NRBC % 0.2 % (0.0-2.0); RBC 4.18 Mil/uL (4.40-5.90); RED CELL DISTRIBUTION WIDTH 14.2 % (11.5-14.5); WHITE BLOOD COUNT 8.1 K/uL (4.8-10.8)
--- NOTE | 2018-06-26 08:28 | CP.PCM.PN ---
Subjective - Date & Time of Evaluation Date of Evaluation: 06/26/18 Time of Evaluation: 06:30 - Subjective Subjective: Progress note for Dr. Diaz. Patient seen and examined at bedside. Patient resting comfortably. No acute events overnight. He is tolerating diet and had a bowel movement last night. Reports minimal pain. Denies fever, chills, diarrhea, nausea and vomiting. Objective - Vital Signs/Intake and Output Vital Signs (last 24 hours): Temp Pulse Resp BP Pulse Ox 97.6 F 74 20 119/81 98 06/26/18 08:16 06/26/18 08:16 06/26/18 08:16 06/26/18 08:16 06/26/18 08:16 Intake and Output: 06/26/18 06/26/18 06:59 18:59 Intake Total 770 Output Total 950 Balance -180 - Medications Medications: Current Medications Acetaminophen (Tylenol 325mg Tab) 650 mg PO Q6 PRN PRN Reason: Fever >100.4 F Albuterol Sulfate (Albuterol 0.042% Inhal Leta (1.25mg/3ml) Ud) 1.25 mg INH RTID [facility] Last Admin: 06/25/18 13:27 Dose: 1.25 mg Allopurinol (Zyloprim) 100 mg PO DAILY [facility] Last Admin: 06/25/18 09:25 Dose: 100 mg Enoxaparin Sodium (Lovenox) 40 mg SC HS [facility] Last Admin: 06/25/18 21:55 Dose: 40 mg Vancomycin HCl 1,000 mg/ (Sodium Chloride) 250 mls @ 166.6 mls/hr IVPB Q12H [facility]; Protocol Last Admin: 06/26/18 00:31 Dose: 166.6 mls/hr Ibuprofen (Motrin Tab) 800 mg PO TID PRN PRN Reason: Pain, moderate (4-7) Last Admin: 06/23/18 18:02 Dose: 800 mg Pantoprazole Sodium (Protonix Ec Tab) 40 mg PO DAILY [facility] Last Admin: 06/25/18 09:25 Dose: 40 mg Senna/Docusate Sodium (Senokot S 50 Mg-8.6 Mg) 1 tab PO BID [facility] Last Admin: 06/25/18 18:07 Dose: 1 tab Tramadol HCl (Ultram) 50 mg PO TID PRN PRN Reason: Pain, moderate (4-7) Last Admin: 06/24/18 17:42 Dose: 50 mg - Labs Labs: 06/24/18 08:06 06/24/18 08:06 - Additional Findings Additional findings: - Constitutional Appears: Non-toxic, No Acute Distress - Head Exam Head Exam: ATRAUMATIC, NORMOCEPHALIC - Eye Exam Eye Exam: Normal appearance - ENT Exam ENT Exam: Mucous Membranes Moist - Neck Exam Neck Exam: Normal Inspection - Respiratory Exam Respiratory Exam: NORMAL BREATHING PATTERN - GI/Abdominal Exam GI & Abdominal Exam: Soft. absent: Tenderness - Rectal Exam Additional comments: juan luis-anal packing in place silk suture seton in place improved erythema and edema - Neurological Exam Neurological Exam: Alert, Awake, Oriented x3 - Psychiatric Exam Psychiatric exam: Normal Affect, Normal Mood Assessment and Plan - Assessment and Plan (Free Text) Assessment: 52 y/o M POD#5 s/p I&D of juan luis-anal abscess and seton placement Plan: - Wound cx: MRSA, beta hemolytic Strep group B- sensitive to vanco - Cont IV abx as per ID - wound packing every other day - Encourage OOB to chair/Amb/IS use Further recs as per Dr. Joe Nicholson, PGY1
[2018-06-26] MEDS: Docusate-Senna 50 mg-8.6 mg Tab PO SCH ×2 (10:21→18:10)
[2018-06-26] MEDS: Pantoprazole 40 mg EC Tab PO SCH (10:21)
--- NOTE | 2018-06-26 18:52 | RAD ---
Date of service: 06/26/2018 HISTORY: resp. insuff COMPARISON: 06/21/2018. FINDINGS: LUNGS: No active pulmonary disease. PLEURA: No significant pleural effusion identified, no pneumothorax apparent. CARDIOVASCULAR: No atherosclerotic calcification present No radiographic findings to suggest acute or significant cardiovascular disease. OSSEOUS STRUCTURES: No significant abnormalities. VISUALIZED UPPER ABDOMEN: Normal. OTHER FINDINGS: None. IMPRESSION: No active disease. No significant interval change compared to the prior examination(s). Limitations of the current examination: Portable technique, poor inspiratory effort.
[2018-06-26] MEDS: Enoxaparin 40 mg Syringe SC SCH (21:35)
--- NOTE | 2018-06-26 22:12 | CP.PCM.PN ---
Subjective - Date & Time of Evaluation Date of Evaluation: 06/26/18 Time of Evaluation: 13:10 - Subjective Subjective: patient resting comfortably without any distress. He is tolerating IV vancomycin and the surgical wound was repacked today. Patient denies having severe pain. Continue supportive measures Objective - Vital Signs/Intake and Output Vital Signs (last 24 hours): Temp Pulse Resp BP Pulse Ox 98.0 F 77 20 115/73 97 06/26/18 16:00 06/26/18 16:00 06/26/18 16:00 06/26/18 16:00 06/26/18 16:00 Intake and Output: 06/26/18 06/27/18 18:59 06:59 Intake Total 1050 Balance 1050 - Medications Medications: Current Medications Acetaminophen (Tylenol 325mg Tab) 650 mg PO Q6 PRN PRN Reason: Fever >100.4 F Albuterol Sulfate (Albuterol 0.042% Inhal Leta (1.25mg/3ml) Ud) 1.25 mg INH RTID [facility] Last Admin: 06/26/18 19:07 Dose: 1.25 mg Allopurinol (Zyloprim) 100 mg PO DAILY [facility] Last Admin: 06/26/18 10:21 Dose: 100 mg Enoxaparin Sodium (Lovenox) 40 mg SC HS [facility] Last Admin: 06/26/18 21:35 Dose: 40 mg Vancomycin HCl 1,000 mg/ (Sodium Chloride) 250 mls @ 166.6 mls/hr IVPB Q12H [facility]; Protocol Last Admin: 06/26/18 13:20 Dose: 166.6 mls/hr Ibuprofen (Motrin Tab) 800 mg PO TID PRN PRN Reason: Pain, moderate (4-7) Last Admin: 06/26/18 18:12 Dose: 800 mg Pantoprazole Sodium (Protonix Ec Tab) 40 mg PO DAILY [facility] Last Admin: 06/26/18 10:21 Dose: 40 mg Senna/Docusate Sodium (Senokot S 50 Mg-8.6 Mg) 1 tab PO BID [facility] Last Admin: 06/26/18 18:10 Dose: 1 tab Tramadol HCl (Ultram) 50 mg PO TID PRN PRN Reason: Pain, moderate (4-7) Last Admin: 06/24/18 17:42 Dose: 50 mg - Labs Labs: 06/26/18 07:46 06/26/18 07:46 - Constitutional Appears: Chronically Ill - Head Exam Head Exam: NORMOCEPHALIC - Eye Exam Eye Exam: Normal appearance Pupil Exam: NORMAL ACCOMODATION - ENT Exam ENT Exam: Normal Exam - Neck Exam Neck Exam: Normal Inspection - Respiratory Exam Respiratory Exam: Decreased Breath Sounds - Cardiovascular Exam Cardiovascular Exam: REGULAR RHYTHM - GI/Abdominal Exam GI & Abdominal Exam: Normal Bowel Sounds - Rectal Exam Rectal Exam: Deferred - Exam Exam: NORMAL INSPECTION - Extremities Exam Extremities Exam: Tenderness - Back Exam Back Exam: NORMAL INSPECTION - Neurological Exam Neurological Exam: Oriented x3 - Psychiatric Exam Psychiatric exam: Normal Affect - Skin Skin Exam: Dry Assessment and Plan (1) Wilma-rectal abscess Status: Acute (2) Vascular insufficiency of extremity Status: Acute (3) Degenerative joint disease Status: Acute (4) Obesity Status: Chronic
--- NOTE | 2018-06-27 06:29 | PN ---
DATE: 06/26/2018 SUBJECTIVE: The patient is alert and oriented, afebrile and is on IV antibiotics. PHYSICAL EXAMINATION: GENERAL: He is not in acute distress. VITAL SIGNS: Blood pressure 118/81, pulse 74, respirations 20, hemoglobin oxygen saturation of 98% on room air. HEART: Regular. No gallop rhythm. LUNGS: Diminished breath sounds over the lung bases. Rhonchi decreased. ABDOMEN: Soft. EXTREMITIES: Gluteal pain is . Lymphedema has subsided. Leg edema has subsided. LABORATORY DATA: White count 8100, hemoglobin 12.7, platelet count 392,000. Sodium 136, potassium 4.1. Blood sugar 118. Chest x-ray, relatively supine film with prominent bronchovascular markings. IMPRESSION: 1. Respiratory insufficiency. 2. Sepsis with gluteal abscess. 3. Arthritis. PLAN: Continue with the antibiotic therapy, incentive spirometry and repeat chest x-ray. Sudarshan Delong MD
--- NOTE | 2018-06-27 06:32 | CON ---
DATE: 06/25/2018 HISTORY OF PRESENT ILLNESS: This 52-year-old male with a past history of arthritis, chronic left bilaterally, and prior history of DVT treated with anticoagulants, history of depression, asthma, bronchitis, chronic renal disease, hypertension, and cholesterolemia, sleep apnea, now admitted with history of gluteal pain consistent for four to five days. There is no acute dyspnea or chest pain on admission. There was no hemoptysis or abdominal pain. No chills. No seizures. No hematemesis. PAST MEDICAL HISTORY: As stated above. SOCIAL HISTORY: He is a nonsmoker, does not take drugs, does not drink alcohol. FAMILY HISTORY: Unremarkable. REVIEW OF SYSTEMS: As reported above. No seizures. No vomiting. No hematemesis. No hematuria. No abdominal pain, but complains of gluteal pain and leg edema. PHYSICAL EXAMINATION: GENERAL: On examination, the patient is obese, alert, oriented, afebrile. VITAL SIGNS: Blood pressure 222/84, pulse is 76, respiration 20, and hemoglobin oxygen saturation 96% on room air. NECK: Supple. HEENT: Unremarkable. No thyromegaly. HEART: Regular with no gallop rhythm. LUNGS: Diminished breath sounds over the lung bases. Rhonchi occasional. ABDOMEN: Soft. EXTREMITIES: Legs, bilateral leg edema present. Deep tendon reflexes unremarkable. LABORATORY DATA: White count on admission 11,700, hemoglobin 13.8, platelet count 394,000 with neutrophil 89%. Serum sodium 137, potassium 4.2, BUN 17, creatinine 0.9. Blood glucose 118, troponin 0.012. Urine unremarkable. CHEST X-RAY: poor inspiratory failure with no pneumothorax, no pleural effusion. IMPRESSION: History of asthma, arthritis, depression, obstructive sleep apnea, deep vein thrombosis, renal disease and hypertension, has had treatment with anticoagulants and other measures recommended by support director. PLAN: The patient was seen by surgeon and peritoneal abscess was found as well as drained. The patient was seen by Infectious Disease who has seen the patient and has given antibiotics. Suggest continue with current management and further measures as needed. Sudarshan Delong MD [facility] # [id number]
[2018-06-27] MEDS: Albuterol 0.042% Inhal Sol (1.25 mg/3 mL) UD INH SCH ×3 (07:25→19:18)
[2018-06-27] MEDS: Docusate-Senna 50 mg-8.6 mg Tab PO SCH ×2 (09:16→18:12)
[2018-06-27] MEDS: Pantoprazole 40 mg EC Tab PO SCH (09:17)
--- NOTE | 2018-06-27 16:29 | CP.PCM.PN ---
Subjective - Date & Time of Evaluation Date of Evaluation: 06/27/18 Time of Evaluation: 09:00 - Subjective Subjective: afeb awake alert wound packed Objective - Vital Signs/Intake and Output Vital Signs (last 24 hours): Temp Pulse Resp BP Pulse Ox 97.6 F 76 20 137/89 95 06/27/18 08:00 06/27/18 08:00 06/27/18 08:00 06/27/18 08:00 06/27/18 08:00 Intake and Output: 06/27/18 06/27/18 06:59 18:59 Intake Total 1050 Output Total 900 600 Balance -900 450 - Medications Medications: Current Medications Acetaminophen (Tylenol 325mg Tab) 650 mg PO Q6 PRN PRN Reason: Fever >100.4 F Albuterol Sulfate (Albuterol 0.042% Inhal Leta (1.25mg/3ml) Ud) 1.25 mg INH RTID [facility] Last Admin: 06/27/18 13:10 Dose: 1.25 mg Allopurinol (Zyloprim) 100 mg PO DAILY [facility] Last Admin: 06/27/18 09:17 Dose: 100 mg Enoxaparin Sodium (Lovenox) 40 mg SC HS [facility] Last Admin: 06/26/18 21:35 Dose: 40 mg Vancomycin HCl 1,000 mg/ (Sodium Chloride) 250 mls @ 166.6 mls/hr IVPB Q12H [facility]; Protocol Last Admin: 06/27/18 13:23 Dose: 166.6 mls/hr Ibuprofen (Motrin Tab) 800 mg PO TID PRN PRN Reason: Pain, moderate (4-7) Last Admin: 06/26/18 18:12 Dose: 800 mg Pantoprazole Sodium (Protonix Ec Tab) 40 mg PO DAILY [facility] Last Admin: 06/27/18 09:17 Dose: 40 mg Senna/Docusate Sodium (Senokot S 50 Mg-8.6 Mg) 1 tab PO BID [facility] Last Admin: 06/27/18 09:16 Dose: 1 tab Tramadol HCl (Ultram) 50 mg PO TID PRN PRN Reason: Pain, moderate (4-7) Last Admin: 06/24/18 17:42 Dose: 50 mg - Labs Labs: 06/26/18 07:46 06/26/18 07:46 - Constitutional Appears: Non-toxic, Chronically Ill - Head Exam Head Exam: NORMOCEPHALIC - Eye Exam Eye Exam: absent: Scleral icterus - ENT Exam ENT Exam: Mucous Membranes Dry - Neck Exam Neck Exam: absent: Lymphadenopathy - Respiratory Exam Respiratory Exam: Decreased Breath Sounds - Cardiovascular Exam Cardiovascular Exam: REGULAR RHYTHM - GI/Abdominal Exam GI & Abdominal Exam: Distended - Rectal Exam Rectal Exam: Deferred - Exam Exam: NORMAL INSPECTION - Extremities Exam Extremities Exam: Pedal Edema - Back Exam Back Exam: absent: CVA tenderness (L), CVA tenderness (R) Assessment and Plan (1) Cellulitis, gluteal, right Status: Acute (2) Wilma-rectal abscess Status: Acute (3) Vascular insufficiency of extremity Status: Acute (4) Anemia Status: Acute (5) Arthritis Status: Acute - Assessment and Plan (Free Text) Assessment: cont iv vanco for min 7 days
--- NOTE | 2018-06-27 17:07 | PN ---
DATE: 06/27/2018 SUBJECTIVE: The patient is alert, oriented, in bed. He is not in acute distress. There is no chest pain. Dyspnea has subsided. Wound pain is improving. PHYSICAL EXAMINATION: VITAL SIGNS: He remains afebrile with blood pressure 137/89, pulse 76, respirations 20, hemoglobin oxygen saturation 95% on room air. HEART: Regular with no gallop rhythm. LUNGS: Fair air entry. Rhonchi decreased. ABDOMEN: Soft. EXTREMITIES: Legs, edema subsiding. LABORATORY DATA: White count 8100, hemoglobin 12.7, platelet count 392,000. IMPRESSION: Gluteal abscess, now improving with antibiotic therapy. PLAN: To continue with current medications. The patient is still under isolation, will be seen by Infectious Disease specialist. Sudarshan Delong MD
--- NOTE | 2018-06-27 22:43 | CP.PCM.PN ---
Subjective - Date & Time of Evaluation Date of Evaluation: 06/27/18 Time of Evaluation: 13:15 - Subjective Subjective: patient is alert and responsive. He has less pain and discomfort today. Patient was evaluated by Dr. Yang. Mister Rosario will need another 7 days of vancomycin IV. Objective - Vital Signs/Intake and Output Vital Signs (last 24 hours): Temp Pulse Resp BP Pulse Ox 98.1 F 85 20 114/75 94 L 06/27/18 15:00 06/27/18 15:00 06/27/18 15:00 06/27/18 15:00 06/27/18 15:00 Intake and Output: 06/27/18 06/28/18 18:59 06:59 Intake Total 1050 Output Total 600 Balance 450 - Medications Medications: Current Medications Acetaminophen (Tylenol 325mg Tab) 650 mg PO Q6 PRN PRN Reason: Fever >100.4 F Albuterol Sulfate (Albuterol 0.042% Inhal Leta (1.25mg/3ml) Ud) 1.25 mg INH RTID [facility] Last Admin: 06/27/18 19:18 Dose: 1.25 mg Allopurinol (Zyloprim) 100 mg PO DAILY [facility] Last Admin: 06/27/18 09:17 Dose: 100 mg Enoxaparin Sodium (Lovenox) 40 mg SC HS [facility] Last Admin: 06/26/18 21:35 Dose: 40 mg Vancomycin HCl 1,000 mg/ (Sodium Chloride) 250 mls @ 166.6 mls/hr IVPB Q12H [facility]; Protocol Last Admin: 06/27/18 13:23 Dose: 166.6 mls/hr Ibuprofen (Motrin Tab) 800 mg PO TID PRN PRN Reason: Pain, moderate (4-7) Last Admin: 06/26/18 18:12 Dose: 800 mg Pantoprazole Sodium (Protonix Ec Tab) 40 mg PO DAILY [facility] Last Admin: 06/27/18 09:17 Dose: 40 mg Senna/Docusate Sodium (Senokot S 50 Mg-8.6 Mg) 1 tab PO BID [facility] Last Admin: 06/27/18 18:12 Dose: 1 tab Tramadol HCl (Ultram) 50 mg PO TID PRN PRN Reason: Pain, moderate (4-7) Last Admin: 06/24/18 17:42 Dose: 50 mg - Labs Labs: 06/26/18 07:46 06/26/18 07:46 - Constitutional Appears: Chronically Ill - Head Exam Head Exam: NORMOCEPHALIC - Eye Exam Eye Exam: Normal appearance Pupil Exam: NORMAL ACCOMODATION - ENT Exam ENT Exam: Normal Exam - Neck Exam Neck Exam: Normal Inspection - Respiratory Exam Respiratory Exam: Decreased Breath Sounds - Cardiovascular Exam Cardiovascular Exam: REGULAR RHYTHM - GI/Abdominal Exam GI & Abdominal Exam: Normal Bowel Sounds - Rectal Exam Rectal Exam: Deferred - Extremities Exam Extremities Exam: Tenderness - Back Exam Back Exam: NORMAL INSPECTION - Neurological Exam Neurological Exam: Oriented x3 - Psychiatric Exam Psychiatric exam: Normal Affect - Skin Skin Exam: Dry Assessment and Plan (1) Wilma-rectal abscess Status: Acute (2) Vascular insufficiency of extremity Status: Acute (3) Degenerative joint disease Status: Acute (4) Obesity Status: Chronic
[2018-06-27] MEDS: Enoxaparin 40 mg Syringe SC SCH (23:00)
[2018-06-28] MEDS: Albuterol 0.042% Inhal Sol (1.25 mg/3 mL) UD INH SCH ×3 (07:25→19:57)
[2018-06-28] MEDS: Pantoprazole 40 mg EC Tab PO SCH (09:06)
[2018-06-28] MEDS: Docusate-Senna 50 mg-8.6 mg Tab PO SCH ×2 (09:06→17:36)
--- NOTE | 2018-06-28 19:46 | CP.PCM.PN ---
Subjective - Date & Time of Evaluation Date of Evaluation: 06/28/18 Time of Evaluation: 09:00 - Subjective Subjective: improving afebrile Objective - Vital Signs/Intake and Output Vital Signs (last 24 hours): Temp Pulse Resp BP Pulse Ox 97.5 F L 84 20 113/73 95 06/28/18 15:57 06/28/18 15:57 06/28/18 15:57 06/28/18 15:57 06/28/18 15:57 Intake and Output: 06/28/18 06/29/18 18:59 06:59 Intake Total 500 Balance 500 - Medications Medications: Current Medications Acetaminophen (Tylenol 325mg Tab) 650 mg PO Q6 PRN PRN Reason: Fever >100.4 F Albuterol Sulfate (Albuterol 0.042% Inhal Leta (1.25mg/3ml) Ud) 1.25 mg INH RTID [facility] Last Admin: 06/28/18 13:25 Dose: 1.25 mg Allopurinol (Zyloprim) 100 mg PO DAILY [facility] Last Admin: 06/28/18 09:06 Dose: 100 mg Enoxaparin Sodium (Lovenox) 40 mg SC HS [facility] Last Admin: 06/27/18 23:00 Dose: 40 mg Vancomycin HCl 1,000 mg/ (Sodium Chloride) 250 mls @ 166.6 mls/hr IVPB Q12H [facility]; Protocol Last Admin: 06/28/18 11:36 Dose: 166.6 mls/hr Ibuprofen (Motrin Tab) 800 mg PO TID PRN PRN Reason: Pain, moderate (4-7) Last Admin: 06/28/18 19:20 Dose: 800 mg Pantoprazole Sodium (Protonix Ec Tab) 40 mg PO DAILY [facility] Last Admin: 06/28/18 09:06 Dose: 40 mg Senna/Docusate Sodium (Senokot S 50 Mg-8.6 Mg) 1 tab PO BID [facility] Last Admin: 06/28/18 17:36 Dose: 1 tab Tramadol HCl (Ultram) 50 mg PO TID PRN PRN Reason: Pain, moderate (4-7) Last Admin: 06/24/18 17:42 Dose: 50 mg - Labs Labs: 06/26/18 07:46 06/26/18 07:46 - Constitutional Appears: Well - Head Exam Head Exam: ATRAUMATIC, NORMAL INSPECTION, NORMOCEPHALIC - Eye Exam Eye Exam: EOMI, Normal appearance, PERRL Pupil Exam: NORMAL ACCOMODATION, PERRL - ENT Exam ENT Exam: Mucous Membranes Moist, Normal Exam - Neck Exam Neck Exam: Full ROM, Normal Inspection. absent: Lymphadenopathy - Respiratory Exam Respiratory Exam: Clear to Ausculation Bilateral, NORMAL BREATHING PATTERN - Cardiovascular Exam Cardiovascular Exam: REGULAR RHYTHM, +S1, +S2. absent: Murmur - GI/Abdominal Exam GI & Abdominal Exam: Soft, Normal Bowel Sounds. absent: Tenderness - Rectal Exam Rectal Exam: Deferred - Exam Exam: NORMAL INSPECTION - Extremities Exam Extremities Exam: Full ROM, Normal Capillary Refill, Normal Inspection. absent: Joint Swelling, Pedal Edema - Back Exam Back Exam: NORMAL INSPECTION - Neurological Exam Neurological Exam: Alert, Awake, CN II-XII Intact, Normal Gait, Oriented x3 - Psychiatric Exam Psychiatric exam: Normal Affect, Normal Mood - Skin Skin Exam: Dry, Intact, Normal Color, Warm Additional comments: wound packing in place Assessment and Plan (1) Cellulitis, gluteal, right Status: Acute (2) Wilma-rectal abscess Status: Acute (3) Vascular insufficiency of extremity Status: Acute (4) Anemia Status: Acute (5) Arthritis Status: Acute - Assessment and Plan (Free Text) Assessment: vanco level ok
[2018-06-28] MEDS: Enoxaparin 40 mg Syringe SC SCH (21:20)
--- NOTE | 2018-06-28 22:13 | CP.PCM.PN ---
Subjective - Date & Time of Evaluation Date of Evaluation: 06/28/18 Time of Evaluation: 19:05 - Subjective Subjective: patient continues to make progress. Wound site less inflamed. Patient tolerating IV vancomycin. Vancomycin trough levels are within normal limits. continue supportive measures. Patient evaluated by infectious disease speci ali. Objective - Vital Signs/Intake and Output Vital Signs (last 24 hours): Temp Pulse Resp BP Pulse Ox 97.5 F L 84 20 113/73 95 06/28/18 15:57 06/28/18 15:57 06/28/18 15:57 06/28/18 15:57 06/28/18 15:57 Intake and Output: 06/28/18 06/29/18 18:59 06:59 Intake Total 500 Balance 500 - Medications Medications: Current Medications Acetaminophen (Tylenol 325mg Tab) 650 mg PO Q6 PRN PRN Reason: Fever >100.4 F Allopurinol (Zyloprim) 100 mg PO DAILY [facility] Last Admin: 06/28/18 09:06 Dose: 100 mg Enoxaparin Sodium (Lovenox) 40 mg SC HS [facility] Last Admin: 06/28/18 21:20 Dose: 40 mg Vancomycin HCl 1,000 mg/ (Sodium Chloride) 250 mls @ 166.6 mls/hr IVPB Q12H [facility]; Protocol Last Admin: 06/28/18 11:36 Dose: 166.6 mls/hr Ibuprofen (Motrin Tab) 800 mg PO TID PRN PRN Reason: Pain, moderate (4-7) Last Admin: 06/28/18 19:20 Dose: 800 mg Pantoprazole Sodium (Protonix Ec Tab) 40 mg PO DAILY [facility] Last Admin: 06/28/18 09:06 Dose: 40 mg Senna/Docusate Sodium (Senokot S 50 Mg-8.6 Mg) 1 tab PO BID [facility] Last Admin: 06/28/18 17:36 Dose: 1 tab Tramadol HCl (Ultram) 50 mg PO TID PRN PRN Reason: Pain, moderate (4-7) Last Admin: 06/24/18 17:42 Dose: 50 mg - Labs Labs: 06/26/18 07:46 06/26/18 07:46 - Constitutional Appears: Chronically Ill - Head Exam Head Exam: NORMOCEPHALIC - Eye Exam Eye Exam: Normal appearance Pupil Exam: NORMAL ACCOMODATION - ENT Exam ENT Exam: Normal Exam - Neck Exam Neck Exam: Normal Inspection - Respiratory Exam Respiratory Exam: Decreased Breath Sounds - GI/Abdominal Exam GI & Abdominal Exam: Normal Bowel Sounds - Rectal Exam Rectal Exam: Deferred - Exam Exam: NORMAL INSPECTION - Extremities Exam Extremities Exam: Tenderness - Back Exam Back Exam: NORMAL INSPECTION - Neurological Exam Neurological Exam: Oriented x3 - Psychiatric Exam Psychiatric exam: Normal Affect - Skin Skin Exam: Dry Assessment and Plan (1) Wilma-rectal abscess Status: Acute (2) Vascular insufficiency of extremity Status: Acute (3) Degenerative joint disease Status: Acute (4) Obesity Status: Chronic
[2018-06-29] MEDS: Pantoprazole 40 mg EC Tab PO SCH (09:26)
[2018-06-29] MEDS: Docusate-Senna 50 mg-8.6 mg Tab PO SCH ×2 (09:26→18:20)
--- NOTE | 2018-06-29 15:33 | RAD ---
Date of service: 06/29/2018 HISTORY: fullow up, cogestion COMPARISON: Chest x-ray 06/26/2018 TECHNIQUE: Chest PA and lateral FINDINGS: LUNGS: No focal consolidation is seen. PLEURA: No pleural effusion is identified. CARDIOVASCULAR: Heart size is within normal limits. No atherosclerotic calcification present. OSSEOUS STRUCTURES: There is reversal of the normal thoracic kyphosis. VISUALIZED UPPER ABDOMEN: Unremarkable. OTHER FINDINGS: None. IMPRESSION: No acute cardiopulmonary process seen.
[2018-06-29 16:42] VITALS: O2SAT 97
--- NOTE | 2018-06-29 19:02 | CP.PCM.PN ---
Subjective - Date & Time of Evaluation Date of Evaluation: 06/29/18 Time of Evaluation: 09:00 - Subjective Subjective: seen on rounds wound healing Objective - Vital Signs/Intake and Output Vital Signs (last 24 hours): Temp Pulse Resp BP Pulse Ox 97.2 F L 80 20 122/81 97 06/29/18 15:00 06/29/18 15:00 06/29/18 15:00 06/29/18 15:00 06/29/18 15:00 - Medications Medications: Current Medications Acetaminophen (Tylenol 325mg Tab) 650 mg PO Q6 PRN PRN Reason: Fever >100.4 F Allopurinol (Zyloprim) 100 mg PO DAILY [facility] Last Admin: 06/29/18 09:26 Dose: 100 mg Enoxaparin Sodium (Lovenox) 40 mg SC HS [facility] Last Admin: 06/28/18 21:20 Dose: 40 mg Vancomycin HCl 1,000 mg/ (Sodium Chloride) 250 mls @ 166.6 mls/hr IVPB Q12H [facility]; Protocol Last Admin: 06/29/18 12:22 Dose: 166.6 mls/hr Ibuprofen (Motrin Tab) 800 mg PO TID PRN PRN Reason: Pain, moderate (4-7) Last Admin: 06/29/18 18:19 Dose: 800 mg Pantoprazole Sodium (Protonix Ec Tab) 40 mg PO DAILY [facility] Last Admin: 06/29/18 09:26 Dose: 40 mg Senna/Docusate Sodium (Senokot S 50 Mg-8.6 Mg) 1 tab PO BID [facility] Last Admin: 06/29/18 18:20 Dose: 1 tab Tramadol HCl (Ultram) 50 mg PO TID PRN PRN Reason: Pain, moderate (4-7) Last Admin: 06/24/18 17:42 Dose: 50 mg - Labs Labs: 06/26/18 07:46 06/26/18 07:46 - Constitutional Appears: Well - Head Exam Head Exam: ATRAUMATIC, NORMAL INSPECTION, NORMOCEPHALIC - Eye Exam Eye Exam: EOMI, Normal appearance, PERRL Pupil Exam: NORMAL ACCOMODATION, PERRL - ENT Exam ENT Exam: Mucous Membranes Moist, Normal Exam - Neck Exam Neck Exam: Full ROM, Normal Inspection. absent: Lymphadenopathy - Respiratory Exam Respiratory Exam: Clear to Ausculation Bilateral, NORMAL BREATHING PATTERN - Cardiovascular Exam Cardiovascular Exam: REGULAR RHYTHM, +S1, +S2. absent: Murmur - GI/Abdominal Exam GI & Abdominal Exam: Soft, Normal Bowel Sounds. absent: Tenderness - Rectal Exam Rectal Exam: Deferred - Exam Exam: NORMAL INSPECTION - Extremities Exam Extremities Exam: Full ROM, Normal Capillary Refill, Normal Inspection. absent: Joint Swelling, Pedal Edema - Back Exam Back Exam: NORMAL INSPECTION - Neurological Exam Neurological Exam: Alert, Awake, CN II-XII Intact, Normal Gait, Oriented x3 - Psychiatric Exam Psychiatric exam: Normal Affect, Normal Mood - Skin Skin Exam: Dry, Intact, Normal Color, Warm Assessment and Plan (1) Cellulitis, gluteal, right Status: Acute (2) Wilma-rectal abscess Status: Acute (3) Vascular insufficiency of extremity Status: Acute (4) Anemia Status: Acute (5) Arthritis Status: Acute - Assessment and Plan (Free Text) Assessment: ok to d/c in am
[2018-06-29] MEDS: Enoxaparin 40 mg Syringe SC SCH (22:05)
--- NOTE | 2018-06-29 22:53 | CP.PCM.PN ---
Subjective - Date & Time of Evaluation Date of Evaluation: 06/29/18 Time of Evaluation: 13:15 - Subjective Subjective: patient continues to make progress. He denies any pain. Wound site less inflamed. Patient tolerating IV antibiotics. Will discharge in a.m. after last dose of vancomycin. Objective - Vital Signs/Intake and Output Vital Signs (last 24 hours): Temp Pulse Resp BP Pulse Ox 97.2 F L 80 20 122/81 97 06/29/18 15:00 06/29/18 15:00 06/29/18 15:00 06/29/18 15:00 06/29/18 15:00 - Medications Medications: Current Medications Acetaminophen (Tylenol 325mg Tab) 650 mg PO Q6 PRN PRN Reason: Fever >100.4 F Allopurinol (Zyloprim) 100 mg PO DAILY [facility] Last Admin: 06/29/18 09:26 Dose: 100 mg Enoxaparin Sodium (Lovenox) 40 mg SC HS [facility] Last Admin: 06/29/18 22:05 Dose: 40 mg Vancomycin HCl 1,000 mg/ (Sodium Chloride) 250 mls @ 166.6 mls/hr IVPB Q12H [facility]; Protocol Last Admin: 06/29/18 12:22 Dose: 166.6 mls/hr Ibuprofen (Motrin Tab) 800 mg PO TID PRN PRN Reason: Pain, moderate (4-7) Last Admin: 06/29/18 18:19 Dose: 800 mg Pantoprazole Sodium (Protonix Ec Tab) 40 mg PO DAILY [facility] Last Admin: 06/29/18 09:26 Dose: 40 mg Senna/Docusate Sodium (Senokot S 50 Mg-8.6 Mg) 1 tab PO BID [facility] Last Admin: 06/29/18 18:20 Dose: 1 tab Tramadol HCl (Ultram) 50 mg PO TID PRN PRN Reason: Pain, moderate (4-7) Last Admin: 06/24/18 17:42 Dose: 50 mg - Labs Labs: 06/26/18 07:46 06/26/18 07:46 - Constitutional Appears: No Acute Distress - Head Exam Head Exam: NORMAL INSPECTION - Eye Exam Eye Exam: Normal appearance Pupil Exam: NORMAL ACCOMODATION - ENT Exam ENT Exam: Normal Oropharynx - Neck Exam Neck Exam: Normal Inspection - Respiratory Exam Respiratory Exam: Decreased Breath Sounds - Cardiovascular Exam Cardiovascular Exam: REGULAR RHYTHM - GI/Abdominal Exam GI & Abdominal Exam: Normal Bowel Sounds - Rectal Exam Rectal Exam: Deferred - Exam Exam: NORMAL INSPECTION - Extremities Exam Extremities Exam: Tenderness - Back Exam Back Exam: NORMAL INSPECTION - Neurological Exam Neurological Exam: Oriented x3 - Psychiatric Exam Psychiatric exam: Normal Mood - Skin Skin Exam: Dry Assessment and Plan (1) Wilma-rectal abscess Status: Acute (2) Vascular insufficiency of extremity Status: Acute (3) Degenerative joint disease Status: Acute (4) Obesity Status: Chronic
[2018-06-30 08:12] VITALS: BP 124/84; PULSE 62; RESP 20; TEMP 98.2
[2018-06-30] MEDS: Pantoprazole 40 mg EC Tab PO SCH (10:32)
[2018-06-30] MEDS: Docusate-Senna 50 mg-8.6 mg Tab PO SCH (10:33)
--- NOTE | 2018-06-30 17:59 | CP.PCM.PN ---
Objective - Vital Signs/Intake and Output Vital Signs (last 24 hours): Temp Pulse Resp BP Pulse Ox 98.2 F 62 20 124/84 97 06/30/18 08:10 06/30/18 08:10 06/30/18 08:10 06/30/18 08:10 06/30/18 08:10 Intake and Output: 06/30/18 06/30/18 06:59 18:59 Intake Total 450 Balance 450 - Labs Labs: 06/26/18 07:46 06/26/18 07:46 Assessment and Plan - Assessment and Plan (Free Text) Assessment: 52 year old male, s/p I&D on the juan luis-rectal abscess, seen and examined. Alert and orientedx3, cleared by surgery for discharge home. Discussed with DR Brown, plan to discharge home on vibramycin for 7 days. Advised to follow up sirgery in 1 week as advised.
--- NOTE | 2018-06-30 22:10 | CP.PCM.DIS ---
Provider - Provider Date of Admission: 06/21/18 16:16 Attending physician: Daquan Banerjee MD Consults: 06/21/18 16:15 General Surgery Consult Stat Comment: perenial infection Consulting Provider: Jason Diaz Jr. Consulting Physician: Jason Diaz Jr. Reason for Consult: perenial infection 06/22/18 22:32 Physician Consult Routine Comment: Consulting Provider: Sudarshan Delong Consulting Physician: Sudarshan Delong Reason for Consult: shortness of breath 06/25/18 08:45 Physician Consult Routine Comment: Consulting Provider: Castillo Yang Consulting Physician: Castillo Yang Reason for Consult: MRSA WOUND Time Spent in preparation of Discharge (in minutes): 24 Diagnosis - Discharge Diagnosis (1) Wilma-rectal abscess Status: Acute (2) Vascular insufficiency of extremity Status: Acute (3) Degenerative joint disease Status: Acute Priority: Medium (4) Obesity Status: Chronic Priority: Medium (5) Cellulitis, gluteal, right Status: Acute Hospital Course - Lab Results Lab Results: Micro Results 06/21/18 20:22 Abscess - Perirectal Gram Stain - Final 06/21/18 20:22 Abscess - Perirectal Wound Culture - Final 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 Most Recent Lab Values WBC 8.1 K/uL (4.8-10.8) 06/26/18 07:46 RBC 4.18 Mil/uL (4.40-5.90) L 06/26/18 07:46 Hgb 12.7 g/dL (12.0-18.0) 06/26/18 07:46 Hct 36.8 % (35.0-51.0) 06/26/18 07:46 MCV 88.0 fL (80.0-94.0) 06/26/18 07:46 MCH 30.2 pg (27.0-31.0) 06/26/18 07:46 MCHC 34.4 g/dL (33.0-37.0) 06/26/18 07:46 RDW 14.2 % (11.5-14.5) 06/26/18 07:46 Plt Count 392 K/uL (130-400) 06/26/18 07:46 MPV 7.6 fL (7.2-11.7) 06/26/18 07:46 Neut % (Auto) 73.4 % (50.0-75.0) 06/26/18 07:46 Lymph % (Auto) 14.5 % (20.0-40.0) L 06/26/18 07:46 [place] % (Auto) 7.7 % (0.0-10.0) 06/26/18 07:46 Eos % (Auto) 3.2 % (0.0-4.0) 06/26/18 07:46 Baso % (Auto) 1.2 % (0.0-2.0) 06/26/18 07:46 Neut # (Auto) 6.0 K/uL (1.8-7.0) 06/26/18 07:46 Lymph # (Auto) 1.2 K/uL (1.0-4.3) 06/26/18 07:46 [place] # (Auto) 0.6 K/uL (0.0-0.8) 06/26/18 07:46 Eos # (Auto) 0.3 K/uL (0.0-0.7) 06/26/18 07:46 Baso # (Auto) 0.1 K/uL (0.0-0.2) 06/26/18 07:46 Neutrophils % (Manual) 89 % (50-75) H 06/21/18 13:37 Lymphocytes % (Manual) 5 % (20-40) L 06/21/18 13:37 Monocytes % (Manual) 5 % (0-10) 06/21/18 13:37 Eosinophils % (Manual) 1 % (0-4) 06/21/18 13:37 Platelet Estimate Normal (NORMAL) 06/21/18 13:37 RBC Morphology Normal 06/21/18 13:37 Sodium 136 mmol/L (132-148) 06/26/18 07:46 Potassium 4.1 mmol/L (3.6-5.2) 06/26/18 07:46 Chloride 100 mmol/L (98-107) 06/26/18 07:46 Carbon Dioxide 28 mmol/L (22-30) 06/26/18 07:46 Anion Gap 11 (10-20) 06/24/18 08:06 BUN 17 mg/dL (9-20) 06/24/18 08:06 Creatinine 0.9 mg/dL (0.8-1.5) 06/24/18 08:06 Est GFR ( Amer) > 60 06/24/18 08:06 Est GFR (Non-Af Amer) > 60 06/24/18 08:06 Random Glucose 118 mg/dL (75-110) H D 06/24/18 08:06 Lactic Acid 1.1 mmol/L (0.7-2.1) 06/21/18 13:45 Calcium 8.8 mg/dl (8.6-10.4) 06/24/18 08:06 Phosphorus 3.3 mg/dL (2.5-4.5) 06/24/18 08:06 Magnesium 2.1 mg/dL (1.6-2.3) 06/24/18 08:06 Total Bilirubin 1.1 mg/dL (0.2-1.3) 06/21/18 13:37 AST 15 U/L (17-59) L D 06/21/18 13:37 ALT < 6 U/L (21-72) L 06/21/18 13:37 Alkaline Phosphatase 71 U/L (38-126) 06/21/18 13:37 Troponin I < 0.0120 ng/mL (0.00-0.120) 06/21/18 13:37 Total Protein 8.0 g/dL (6.3-8.3) 06/21/18 13:37 Albumin 4.4 g/dL (3.5-5.0) 06/21/18 13:37 Globulin 3.7 gm/dL (2.2-3.9) 06/21/18 13:37 Albumin/Globulin Ratio 1.2 (1.0-2.1) 06/21/18 13:37 Lipase 79 U/L (23-300) 06/21/18 13:37 Urine Color Yellow (YELLOW) 06/21/18 13:45 Urine Clarity Clear (Clear) 06/21/18 13:45 Urine pH 6.0 (5.0-8.0) 06/21/18 13:45 Ur Specific [place] 1.012 (1.003-1.030) 06/21/18 13:45 Urine Protein Negative mg/dL (NEGATIVE) 06/21/18 13:45 Urine Glucose (UA) Normal mg/dL (Normal) 06/21/18 13:45 Urine Ketones Negative mg/dL (NEGATIVE) 06/21/18 13:45 Urine Blood Negative (NEGATIVE) 06/21/18 13:45 Urine Nitrate Negative (NEGATIVE) 06/21/18 13:45 Urine Bilirubin Negative (NEGATIVE) 06/21/18 13:45 Urine Urobilinogen Normal mg/dL (0.2-1.0) 06/21/18 13:45 Ur Leukocyte Esterase Neg Loi/uL (Negative) 06/21/18 13:45 Urine WBC (Auto) < 1 /hpf (0-5) 06/21/18 13:45 Urine RBC (Auto) 2 /hpf (0-3) 06/21/18 13:45 Vancomycin Trough 16.0 ug/mL (5.0-10.0) H 06/28/18 08:29 Discharge Exam - Head Exam Head Exam: NORMAL INSPECTION - Eye Exam Eye Exam: Normal appearance Pupil Exam: NORMAL ACCOMODATION - ENT Exam ENT Exam: Normal Exam - Neck Exam Neck exam: Normal Inspection - Respiratory Exam Respiratory Exam: Decreased Breath Sounds - Cardiovascular Exam Cardiovascular Exam: REGULAR RHYTHM - GI/Abdominal Exam GI & Abdominal Exam: Hyperactive Bowel Sounds - Rectal Exam Rectal Exam: Deferred - Exam Exam: NORMAL INSPECTION External exam: NORMAL EXTERNAL EXAM - Extremities Exam Extremities exam: tenderness - Back Exam Back exam: NORMAL INSPECTION - Neurological Exam Neurological exam: Oriented x3 - Psychiatric Exam Psychiatric exam: Normal Mood - Skin Skin Exam: Dry Discharge Plan - Discharge Medications Prescriptions: Doxycycline Hyclate 100 mg PO BID #14 capsule - Follow Up Plan Condition: GOOD Disposition: HOME/ ROUTINE Instructions: Heart Failure, Adult (DC), Cellulitis (DC), Abscess (GEN) Additional Instructions: FOLLOW UP WITH DR BANERJEE IN HIS OFFICE IN ONE WEEK 2cm incision to R gluteal fold. May leave open to air or cover with gauze and tape. Keep clean and Dry. Seton is in place and to be removed within 7-[address] Diaz in the office. Patient to call to make an appointment. CONTINUE HOME MEDICATION NEW PRESCRIPTION GIVEN BY PMD ACTIVITY TOLERATED CALL DR BANERJEE OR GO TO THE EMERGENCY ROOM IF SYMPTOM RETURN OR WORSENING Referrals: Daquan Banerjee MD [Staff Provider] - Castillo Yang MD [Staff Provider] - Jason Diaz Jr., MD [Staff Provider] - Sudarshan Delong MD [Staff Provider] -
--- NOTE | 2018-07-02 06:47 | PN ---
DATE: 06/29/2018 SUBJECTIVE: The patient is alert, oriented, afebrile. PHYSICAL EXAMINATION: VITAL SIGNS: Blood pressure 116/66, pulse 70, respirations 20, hemoglobin oxygen saturation of 94% on room air. GENERAL: He is in no distress. He has no chest pain, and gluteal wound is just healing on antibiotics and other therapy. Was seen by the surgeon. HEART: Regular. No gallop rhythm. LUNGS: Diminished breath sounds. Rhonchi decreased. ABDOMEN: Soft. EXTREMITIES: Leg edema subsided. IMPRESSION: Respiratory insufficiency, gluteal abscess, now resolving on therapy, he is out of isolation now, arthritis. PLAN: To continue the current medications in view of the previous chest x-ray showing some congestive changes in the basal area on a very poor supine film. Now that he is out of isolation and is ambulant, we will do his chest x-ray here and upright. Sudarshan Delong MD
== END 2018-06-30 13:56 | disposition home or self-care (01) | DRG 982 ==
LOC: C.ER 12:14 → C.9E 16:16 → C.6T 20:14 → C.5S 06-25 14:17
PROVIDERS: ADMIT Internal Medicine; ATTEND Internal Medicine
PROC: 0DQP0ZZ Repair Rectum, Open Approach (ICD-10-PCS; 2018-06-21)
PROC: 0D9P0ZX Drainage of Rectum, Open Approach, Diagnostic (ICD-10-PCS; principal; 2018-06-21 18:30)
DX: N49.3 Fournier gangrene (principal); L03.317 Cellulitis of buttock; K60.3 Anal fistula; I12.9 Hypertensive chronic kidney disease with stage 1 through stage 4 chronic kidney disease, or unspecified chronic kidney disease; N18.9 Chronic kidney disease, unspecified; E78.00 Pure hypercholesterolemia, unspecified; D63.1 Anemia in chronic kidney disease; Z86.718 Personal history of other venous thrombosis and embolism; E66.9 Obesity, unspecified; M19.90 Unspecified osteoarthritis, unspecified site; K21.9 Gastro-esophageal reflux disease without esophagitis; M10.9 Gout, unspecified; Z87.891 Personal history of nicotine dependence; I87.2 Venous insufficiency (chronic) (peripheral); B95.62 Methicillin resistant Staphylococcus aureus infection as the cause of diseases classified elsewhere; G47.33 Obstructive sleep apnea (adult) (pediatric)

== ENCOUNTER 2018-08-09 09:13 | Outpatient (CLI) | payer MEDICARE, SELFPAY | END 2018-08-09 09:14 | disposition home or self-care (01) | LOC: C.PAT 09:13 | DX: K60.3 Anal fistula (principal) ==

== ENCOUNTER 2018-08-17 17:52 | Inpatient (IN) | payer MEDICARE, SELFPAY ==
[2018-08-17 17:53] VITALS: BMI 40.6
[2018-08-17] MEDS ORDERED: Sodium Chloride 0.9% 1,000 ML IV STA (18:47)
--- NOTE | 2018-08-17 18:57 | C.PDOC ---
History Of Present Illness 53 y/o M p/w fever x 5 days. Reports nausea, NBNB vomiting, inability to get an erection, and generally feeling unwell. He denies any pain. He states he had a buttock abscess 2 months ago which was drained by Dr. Diaz and has another procedure with Dr. Diaz for this coming Monday. Denies cough, dyspnea. Has ongoing rash to pannus. Time Seen by Provider: 08/17/18 18:18 Chief Complaint (Nursing): Weakness/Neurological Deficit Past Medical History Vital Signs: Last Vital Signs Temp 102.7 F H 08/17/18 18:07 Pulse 110 H 08/17/18 18:07 Resp 19 08/17/18 18:07 BP 122/85 08/17/18 18:07 Pulse Ox 95 08/17/18 18:07 - Medical History PMH: Anemia, Arthritis, Asthma, Bronchitis, Depression, Deep Vein Thrombosis, Gastritis, Gall Bladder Disease, HTN, Hypercholesterolemia, Kidney Stones, Peripheral Edema, Pneumonia, Chronic Kidney Disease, Sleep Apnea - [facility] Procedures CLOSURE SKIN & SUBCUTANEOUS NEC (12/01/12) DILATE OF L COM ILIAC VEIN WITH INTRALUM DEV, PERC APPROACH (08/28/17) DILATE OF L EXT ILIAC VEIN WITH INTRALUM DEV, PERC APPROACH (08/28/17) DILATE OF R COM ILIAC VEIN WITH INTRALUM DEV, PERC APPROACH (08/28/17) DILATE OF R EXT ILIAC VEIN WITH INTRALUM DEV, PERC APPROACH (08/28/17) DILATION OF INF VENA CAVA WITH INTRALUM DEV, PERC APPROACH (08/28/17) DILATION OF INFERIOR VENA CAVA, PERCUTANEOUS APPROACH (08/28/17) DILATION OF LEFT COMMON ILIAC VEIN, PERCUTANEOUS APPROACH (08/28/17) DILATION OF LEFT FEMORAL VEIN, PERCUTANEOUS APPROACH (08/28/17) DRAINAGE OF RECTUM, OPEN APPROACH, DIAGNOSTIC (06/21/18) EXTIRPATION OF MATTER FROM INFERIOR VENA CAVA, PERC APPROACH (08/28/17) INJECT STEROID (03/29/14) INJECT/INFUSE NEC (03/29/14) INJECTION INTO JOINT (03/29/14) INSERTION OF INFUSION DEV INTO SUP VENA CAVA, PERC APPROACH (11/15/15) INTRODUCTION OF OTH THERAP SUBST INTO MUSCLE, PERC APPROACH (10/07/15) REPAIR ABDOMINAL WALL, EXTERNAL APPROACH (10/07/15) REPAIR RECTUM, OPEN APPROACH (06/21/18) TRANSFUSE NONAUT FROZEN PLASMA IN PERIPH VEIN, PERC (10/07/15) TRANSFUSE NONAUT RED BLOOD CELLS IN PERIPH VEIN, PERC (10/07/15) Family History: States: Unknown Family Hx - Social History Hx Tobacco Use: No Hx Alcohol Use: No Hx Substance Use: No - Immunization History Hx Tetanus Toxoid Vaccination: Yes Hx Influenza Vaccination: Yes Hx Pneumococcal Vaccination: Yes Review Of Systems Except As Marked, All Systems Reviewed And Found Negative. Cardiovascular: Negative for: Chest Pain Respiratory: Negative for: Cough Physical Exam - Physical Exam Additional Physical Exam Comments: Constitutional: No acute distress. Head: Atraumatic. Eyes: PERRL. ENT: Moist mucous membranes. Neck: Supple. Cardiovascular: Tachycardic rate. Radial pulse 2+ bilaterally. Chest: No tenderness. Respiratory: Clear to auscultation bilaterally. GI: Soft. Obese. Back: No CVA tenderness. Musculoskeletal: Chronic skin changes to bilateral lower legs, edematous. Skin: Erythematous rash to pannus. Neurologic: Alert, no focal deficit. ED Course And Treatment - Laboratory Results Result Diagrams: 08/17/18 18:57 08/17/18 18:57 O2 Sat by Pulse Oximetry: 95 (RA) Pulse Ox Interpretation: Normal - Radiology CXR: Interpreted by Me, Viewed By Me CXR Interpretation: Yes: No Acute Disease Medical Decision Making Medical Decision Making: FINDINGS: LUNGS: The lungs are well inflated and clear. PLEURA: No pleural effusions or pneumothorax. CARDIOVASCULAR: The heart is normal in size. No aortic atherosclerotic calcifications present. OSSEOUS STRUCTURES: Within normal limits for the patient's age. VISUALIZED UPPER ABDOMEN: Normal. OTHER FINDINGS: None. IMPRESSION: No active pulmonary disease. EKG Sinus tach, 112 bpm, no ST elevations. Antibiotics administered, IVF. Dr. Brown accepts patient to his service. Consult placed for Dr. Diaz. Disposition - Disposition Disposition: HOSPITALIZED Disposition Time: 20:30 Condition: GUARDED Forms: [facility] ([place]) - Clinical Impression Clinical Impression: Sepsis, UTI (urinary tract infection)
[2018-08-17 19:00] LABS: HEMOGLOBIN 13.7 g/dL (12.0-18.0)
[2018-08-17 19:02] LABS: VENOUS BLOOD GAS BASE EXCESS 5.2 mmol/L (0.0-2.0); VENOUS BLOOD GAS PCO2 32 mmHg (40-60); VENOUS BLOOD GAS PO2 57 mm/Hg (30-55); VENOUS BLOOD PH 7.54 (7.32-7.43)
[2018-08-17 19:03] LABS: BASO % 0.2 % (0.0-2.0); LYMPH # 0.7 K/uL (1.0-4.3); MEAN CORPUSCULAR HEMOGLOBIN 29.9 pg (27.0-31.0); MEAN PLATELET VOLUME 8.3 fL (7.2-11.7); MONO # 1.8 K/uL (0.0-0.8); MONO % 20.3 % (0.0-10.0); NEUT # 6.2 K/uL (1.8-7.0); NEUT % 71.5 % (50.0-75.0); WHITE BLOOD COUNT 8.7 K/uL (4.8-10.8)
[2018-08-17 19:05] LABS: MEAN CELL VOLUME 85.4 fL (80.0-94.0); PLATELET COUNT 250 K/uL (130-400)
[2018-08-17 19:09] LABS: INR 1.2; PROTHROMBIN TIME 13.1 SECONDS (9.7-12.2)
[2018-08-17 19:13] LABS: ALBUMIN 3.8 g/dL (3.5-5.0); AST/SGOT 42 U/L (17-59); BLOOD UREA NITROGEN 26 mg/dL (9-20); CALCIUM 8.7 mg/dl (8.6-10.4); GFR NON-AFRICAN AMERICAN 49; LIPASE 144 U/L (23-300)
[2018-08-17 19:14] LABS: ALT/SGPT < 6 U/L (21-72)
[2018-08-17 19:31] LABS: URINE AMORPHOUS SEDIMENT FEW /ul (<OCC); URINE BACTERIA MOD (<OCC); URINE BILIRUBIN NEGATIVE (NEGATIVE); URINE BLOOD 2+ (NEGATIVE); URINE CLARITY Hazy (Clear); URINE COLOR Yellow (YELLOW); URINE GLUCOSE (UA) NORMAL (Normal); URINE LEUKOCYTE ESTERASE 3+ Leu/uL (Negative); URINE PROTEIN 2+ mg/dL (NEGATIVE); URINE UROBILINOGEN NORMAL mg/dL (0.2-1.0); WBC CLUMPS FEW /hpf
[2018-08-17] MEDS ORDERED: Cefepime 1 GM in Sodium Chloride 0.9% 50 ML IVPB ONE (19:34)
[2018-08-17] MEDS ORDERED: Vancomycin 1 gm/NS 200 ml 1 GM/200 ML BAG IVPB STA (19:34)
[2018-08-17 19:54] LABS: BANDS 6 % (0-2); LYMPHOCYTE 4 % (20-40); MONOCYTE 20 % (0-10); NEUTROPHIL 70 % (50-75); PLATELET ESTIMATE NORMAL (NORMAL); TOTAL CELLS COUNTED 100
[2018-08-17 19:55] LABS: GIANT PLATELETS PRESENT
[2018-08-17 20:06] LABS: ERYTHROCYTE SEDIMENTATION RATE 112 mm/hr (0-15)
--- NOTE | 2018-08-17 20:07 | RAD ---
Date of service: 08/17/2018 HISTORY: fever COMPARISON: 06/29/2018 FINDINGS: LUNGS: The lungs are well inflated and clear. PLEURA: No pleural effusions or pneumothorax. CARDIOVASCULAR: The heart is normal in size. No aortic atherosclerotic calcifications present. OSSEOUS STRUCTURES: Within normal limits for the patient's age. VISUALIZED UPPER ABDOMEN: Normal. OTHER FINDINGS: None. IMPRESSION: No active pulmonary disease.
[2018-08-17] MEDS ORDERED: Vancomycin 1 GM 1 GM/250 ML BAG IVPB ONE (20:31)
[2018-08-17] MEDS ORDERED: Cefepime IV 1 gm in Dextrose 1 GM/50 ML BAG IVPB ONE (21:00)
--- NOTE | 2018-08-17 22:51 | CP.PCM.HP ---
History of Present Illness - History of Present Illness History of Present Illness: 53-year-old male who comes to the emergency room at [facility] complaining of generalized malaise, fever for 5 days and burning on urination. Patient was last treated at [facility] for a rectal abscess 2 months ago. He is scheduled for another incision and drainage this coming Monday. patient was evaluated in the emergency department and admission was advised. Past history includes hypertension, phlebitis, degenerative joint disease, fungal rashes, venous occlusions and pulmonary embolus. Present on Admission - Present on Admission Any Indicators Present on Admission: No History of DVT/PE: No History of Uncontrolled Diabetes: No Urinary Catheter: No Decubitus Ulcer Present: No History Surgical Site Infection Following: None Review of Systems - Constitutional Constitutional: Fever, Headache, Malaise - EENT Eyes: Dry Eye Nose/Mouth/Throat: Dry Mouth - Gastrointestinal Gastrointestinal: Nausea - Genitourinary Genitourinary: Other (burning on urination) - Reproductive: Male Reproductive:Male: Sexual Dysfunction - Musculoskeletal Musculoskeletal: Arthralgias - Integumentary Integumentary: Rash - Neurological Neurological: Dizziness Past Patient History - Infectious Disease Hx of Infectious Diseases: None, C.diff - Tetanus Immunizations Tetanus Immunization: Up to Date - Past Medical History & Family History Past Medical History?: Yes - Past Social History Smoking Status: Former Smoker Chewing Tobacco Use: No Cigar Use: No Alcohol: None Drugs: Denies Home Situation {Lives}: With Family Domestic Violence: Negative - CARDIAC Hx Circulatory Problems: Yes Hx Hypercholesterolemia: Yes Hx Hypertension: Yes Hx Peripheral Edema: Yes - PULMONARY Hx Asthma: Yes Hx Bronchitis: Yes Hx Pneumonia: Yes Hx Sleep Apnea: Yes - NEUROLOGICAL Hx Neurological Disorder: No - HEENT Hx Epistaxis: Yes - RENAL Hx Chronic Kidney Disease: Yes Hx Kidney Stones: Yes - ENDOCRINE/METABOLIC Hx Endocrine Disorders: No - HEMATOLOGICAL/ONCOLOGICAL Hx Anemia: Yes - INTEGUMENTARY Hx Cellulitis: Yes Other/Comment: Ulcers - legs b/l - MUSCULOSKELETAL/RHEUMATOLOGICAL Hx Arthritis: Yes - GASTROINTESTINAL Hx Gall Bladder Disease: Yes Hx Gastritis: Yes - GENITOURINARY/GYNECOLOGICAL Hx Genitourinary Disorders: No Hx Urinary Tract Infection: Yes - PSYCHIATRIC Hx Depression: Yes Hx Substance Use: No - SURGICAL HISTORY Hx Arthroscopy: Yes Hx Herniorrhaphy: Yes (2010) Hx Vascular Surgery: Yes Other/Comment: IVC filter - ANESTHESIA Hx Anesthesia: Yes Hx Anesthesia Reactions: No Hx Malignant Hyperthermia: No Meds Allergies/Adverse Reactions: Allergies Allergy/AdvReac Type Severity Reaction Status Date / Time Penicillins Allergy Severe ANAPHYLAXIS Verified 08/09/18 09:27 Physical Exam - Constitutional Appears: Chronically Ill - Head Exam Head Exam: NORMOCEPHALIC - Eye Exam Eye Exam: Normal appearance Pupil Exam: NORMAL ACCOMODATION - ENT Exam ENT Exam: Normal Exam - Neck Exam Neck exam: Positive for: Normal Inspection - Respiratory Exam Respiratory Exam: Decreased Breath Sounds - Cardiovascular Exam Cardiovascular Exam: REGULAR RHYTHM - GI/Abdominal Exam GI & Abdominal Exam: Hyperactive Bowel Sounds - Rectal Exam Rectal Exam: Deferred - Extremities Exam Extremities exam: Positive for: tenderness - Back Exam Back exam: NORMAL INSPECTION - Neurological Exam Neurological exam: Oriented x3 - Psychiatric Exam Psychiatric exam: Normal Affect - Skin Skin Exam: Dry Results - Vital Signs Recent Vital Signs: Last Vital Signs Temp 97.5 F L 08/17/18 22:24 Pulse 71 08/17/18 22:24 Resp 20 08/17/18 22:24 BP 110/75 08/17/18 22:24 Pulse Ox 94 L 08/17/18 22:24 - Labs Result Diagrams: 08/17/18 18:57 08/17/18 18:57 Labs: Laboratory Results - last 24 hr 08/17/18 08/17/18 08/17/18 18:03 18:54 18:55 WBC RBC Hgb Hct MCV MCH MCHC RDW Plt Count MPV Neut % (Auto) Lymph % (Auto) [place] % (Auto) Eos % (Auto) Baso % (Auto) Neut # (Auto) Lymph # (Auto) [place] # (Auto) Eos # (Auto) Baso # (Auto) Neutrophils % (Manual) Band Neutrophils % Lymphocytes % (Manual) Monocytes % (Manual) Platelet Estimate Giant Platelets ESR PT INR APTT pO2 57 H VBG pH 7.54 H VBG pCO2 32 L VBG HCO3 28.9 VBG Total CO2 28.4 H VBG O2 Sat (Calc) 94.9 H VBG Base Excess 5.2 H VBG Potassium 3.7 Sodium 132.0 Chloride 101.0 Glucose 130 H Lactate 1.5 FiO2 21.0 Potassium Carbon Dioxide Anion Gap BUN Creatinine Est GFR ( Amer) Est GFR (Non-Af Amer) POC Glucose (mg/dL) 136 H Random Glucose Calcium Phosphorus Magnesium Total Bilirubin AST ALT Alkaline Phosphatase C-React Prot High Sens Total Protein Albumin Globulin Albumin/Globulin Ratio Lipase Venous Blood Potassium 3.7 Urine Color Urine Clarity Urine pH Ur Specific [place] Urine Protein Urine Glucose (UA) Urine Ketones Urine Blood Urine Nitrate Urine Bilirubin Urine Urobilinogen Ur Leukocyte Esterase Urine WBC (Auto) Urine RBC (Auto) Urine WBC Clumps (Auto) Amorphous Sediment Urine Bacteria Influenza Typ A,B (EIA) Negative for flu a/b Blood Type Antibody Screen 08/17/18 08/17/18 08/17/18 18:57 18:57 18:57 WBC 8.7 RBC 4.60 Hgb 13.7 Hct 39.3 MCV 85.4 D MCH 29.9 MCHC 35.0 RDW 15.0 H Plt Count 250 D MPV 8.3 Neut % (Auto) 71.5 Lymph % (Auto) 8.0 L [place] % (Auto) 20.3 H Eos % (Auto) 0.0 Baso % (Auto) 0.2 Neut # (Auto) 6.2 Lymph # (Auto) 0.7 L [place] # (Auto) 1.8 H Eos # (Auto) 0.0 Baso # (Auto) 0.0 Neutrophils % (Manual) 70 Band Neutrophils % 6 H Lymphocytes % (Manual) 4 L Monocytes % (Manual) 20 H Platelet Estimate Normal [place] Platelets Present ESR 112 H PT 13.1 H INR 1.2 APTT 37 H pO2 VBG pH VBG pCO2 VBG HCO3 VBG Total CO2 VBG O2 Sat (Calc) VBG Base Excess VBG Potassium Sodium 133 Chloride 96 L Glucose Lactate FiO2 Potassium 3.8 Carbon Dioxide 26 Anion Gap 14 BUN 26 H Creatinine 1.5 Est GFR ( Amer) 60 Est GFR (Non-Af Amer) 49 POC Glucose (mg/dL) Random Glucose 134 H D Calcium 8.7 Phosphorus 2.3 L Magnesium 2.3 Total Bilirubin 0.7 AST 42 ALT < 6 L Alkaline Phosphatase 70 C-React Prot High Sens Total Protein 7.5 Albumin 3.8 Globulin 3.8 Albumin/Globulin Ratio 1.0 Lipase 144 Venous Blood Potassium Urine Color Urine Clarity Urine pH Ur Specific [place] Urine Protein Urine Glucose (UA) Urine Ketones Urine Blood Urine Nitrate Urine Bilirubin Urine Urobilinogen Ur Leukocyte Esterase Urine WBC (Auto) Urine RBC (Auto) Urine WBC Clumps (Auto) Amorphous Sediment Urine Bacteria Influenza Typ A,B (EIA) Blood Type Antibody Screen 08/17/18 08/17/18 08/17/18 18:57 19:17 19:19 WBC RBC Hgb Hct MCV MCH MCHC RDW Plt Count MPV Neut % (Auto) Lymph % (Auto) [place] % (Auto) Eos % (Auto) Baso % (Auto) Neut # (Auto) Lymph # (Auto) [place] # (Auto) Eos # (Auto) Baso # (Auto) Neutrophils % (Manual) Band Neutrophils % Lymphocytes % (Manual) Monocytes % (Manual) Platelet Estimate [place] Platelets ESR PT INR APTT pO2 VBG pH VBG pCO2 VBG HCO3 VBG Total CO2 VBG O2 Sat (Calc) VBG Base Excess VBG Potassium Sodium Chloride Glucose Lactate FiO2 Potassium Carbon Dioxide Anion Gap BUN Creatinine Est GFR ( Amer) Est GFR (Non-Af Amer) POC Glucose (mg/dL) Random Glucose Calcium Phosphorus Magnesium Total Bilirubin AST ALT Alkaline Phosphatase C-React Prot High Sens > 15.00 H Total Protein Albumin Globulin Albumin/Globulin Ratio Lipase Venous Blood Potassium Urine Color Yellow Urine Clarity Hazy Urine pH 5.0 Ur Specific [place] 1.011 Urine Protein 2+ H Urine Glucose (UA) Normal Urine Ketones Negative Urine Blood 2+ H Urine Nitrate Negative Urine Bilirubin Negative Urine Urobilinogen Normal Ur Leukocyte Esterase 3+ H Urine WBC (Auto) 272 H Urine RBC (Auto) 15 H Urine WBC Clumps (Auto) Few H Amorphous Sediment Few H Urine Bacteria Mod H Influenza Typ A,B (EIA) Blood Type A POSITIVE Antibody Screen Negative Assessment & Plan (1) Peripheral vascular disease Status: Acute (2) UTI (urinary tract infection) Status: Acute (3) Degenerative joint disease Status: Acute Priority: Medium (4) Fungal rash of torso Status: Acute Priority: Medium (5) Wilma-rectal abscess Status: Acute
--- NOTE | 2018-08-18 00:44 | CP.PCM.CON ---
History of Present Illness - History of Present Illness History of Present Illness: Surgery Consult Note- Dr. Diaz Reason for Consult: juan luis-rectal abscess 53M well known to the service, pmhx significant for HTN, GERD, DVT, Gout admitted for UTI and sepsis. Patient has known juan luis-rectal abscess, and fistula in Ano. s/p juan luis-rectal I&D and Seton placement 06/2018. Patient is scheduled for Surgery this upcoming week for patients anal fistula. Last weekend patient states increased malaise and weakness. During the week had changes in urinary habits and frequency. Denies BRBPR, or purlent discharge PMH: HTN, GERD, DVT, Gout, Fistula in ano, juan luis-rectal abscess PSH: IVC (2009, 2017), Hernia repair (2010), I&D and seton placement (2018) ALL: PCN- Hives SocialHx: denies tobacco, recreational drug use. Social ETOH PMD: Dr. Brown Review of Systems - Review of Systems All systems: reviewed and no additional remarkable complaints except - Constitutional Constitutional: As Per HPI Past Patient History - Infectious Disease Hx of Infectious Diseases: None, C.diff - Tetanus Immunizations Tetanus Immunization: Up to Date - Past Medical History & Family History Past Medical History?: Yes - Past Social History Smoking Status: Unknown If Ever Smoked - CARDIAC Hx Cardiac Disorders: Yes Hx Circulatory Problems: Yes Hx Hypercholesterolemia: Yes Hx Hypertension: Yes Hx Peripheral Edema: Yes - PULMONARY Hx Respiratory Disorders: Yes Hx Asthma: Yes Hx Bronchitis: Yes Hx Pneumonia: Yes Hx Sleep Apnea: Yes - NEUROLOGICAL Hx Neurological Disorder: No - HEENT Hx HEENT Problems: Yes Hx Epistaxis: Yes - RENAL Hx Chronic Kidney Disease: Yes Hx Kidney Stones: Yes - ENDOCRINE/METABOLIC Hx Endocrine Disorders: No - HEMATOLOGICAL/ONCOLOGICAL Hx Blood Disorders: Yes Hx Anemia: Yes - INTEGUMENTARY Hx Dermatological Problems: Yes Hx Cellulitis: Yes Other/Comment: Ulcers - legs b/l - MUSCULOSKELETAL/RHEUMATOLOGICAL Hx Musculoskeletal Disorders: Yes Hx Arthritis: Yes Hx Falls: No - GASTROINTESTINAL Hx Gastrointestinal Disorders: Yes Hx Gall Bladder Disease: Yes Hx Gastritis: Yes - GENITOURINARY/GYNECOLOGICAL Hx Genitourinary Disorders: No Hx Urinary Tract Infection: Yes - PSYCHIATRIC Hx Psychophysiologic Disorder: Yes Hx Depression: Yes Hx Substance Use: No - SURGICAL HISTORY Hx Surgeries: Yes Hx Arthroscopy: Yes Hx Herniorrhaphy: Yes (2010) Hx Vascular Surgery: Yes Other/Comment: IVC filter - ANESTHESIA Hx Anesthesia: Yes Hx Anesthesia Reactions: No Hx Malignant Hyperthermia: No Meds Allergies/Adverse Reactions: Allergies Allergy/AdvReac Type Severity Reaction Status Date / Time Penicillins Allergy Severe ANAPHYLAXIS Verified 08/09/18 09:27 - Medications Medications: Current Medications Allopurinol (Zyloprim) 100 mg PO DAILY [facility] Enalapril Maleate (Vasotec) 5 mg PO DAILY [facility] Vancomycin/Sodium Chloride (Vancomycin 1 Gm/Ns 200 Ml) 1 gm in 200 mls @ 133 mls/hr IVPB Q24H [facility]; Protocol Stop: 08/23/18 21:01 Ibuprofen (Motrin Tab) 800 mg PO Q12H PRN PRN Reason: Pain, Mild (1-3) Pantoprazole Sodium (Protonix Ec Tab) 40 mg PO DAILY [facility] Rivaroxaban (Xarelto) 20 mg PO DAILY [facility] Physical Exam - Constitutional Appears: Non-toxic, No Acute Distress - Head Exam Head Exam: NORMAL INSPECTION - Eye Exam Eye Exam: EOMI - ENT Exam ENT Exam: Mucous Membranes Moist - Respiratory Exam Respiratory Exam: NORMAL BREATHING PATTERN. absent: Accessory Muscle Use, Respiratory Distress - Cardiovascular Exam Cardiovascular Exam: REGULAR RHYTHM. absent: Bradycardia, Tachycardia - GI/Abdominal Exam GI & Abdominal Exam: Soft. absent: Distended, Firm, Guarding, Rigid, Tenderness - Rectal Exam Additional comments: Seton stitch in place Right anterior. No [place] areas of fluctuance or no abscess appreciated DAVID: good tone, no blood. No areas of fullness or purulent discharge on palpatio n - Extremities Exam Additional comments: B/L lower extremities wrapped, dressing C/D/I - Back Exam Back exam: absent: CVA tenderness (L), CVA tenderness (R) - Neurological Exam Neurological exam: Alert, Oriented x3 - Skin Skin Exam: Normal Color, Warm Results - Vital Signs Recent Vital Signs: Last Vital Signs Temp 97.5 F L 08/17/18 22:24 Pulse 76 08/18/18 00:24 Resp 20 08/17/18 22:24 BP 110/75 08/17/18 22:24 Pulse Ox 94 L 08/17/18 22:24 - Labs Result Diagrams: 08/17/18 18:57 08/17/18 18:57 Labs: Laboratory Results - last 24 hr 08/17/18 08/17/18 08/17/18 18:03 18:54 18:55 WBC RBC Hgb Hct MCV MCH MCHC RDW Plt Count MPV Neut % (Auto) Lymph % (Auto) Schleicher % (Auto) Eos % (Auto) Baso % (Auto) Neut # (Auto) Lymph # (Auto) Schleicher # (Auto) Eos # (Auto) Baso # (Auto) Neutrophils % (Manual) Band Neutrophils % Lymphocytes % (Manual) Monocytes % (Manual) Platelet Estimate Giant Platelets ESR PT INR APTT pO2 57 H VBG pH 7.54 H VBG pCO2 32 L VBG HCO3 28.9 VBG Total CO2 28.4 H VBG O2 Sat (Calc) 94.9 H VBG Base Excess 5.2 H VBG Potassium 3.7 Sodium 132.0 Chloride 101.0 Glucose 130 H Lactate 1.5 FiO2 21.0 Potassium Carbon Dioxide Anion Gap BUN Creatinine Est GFR ( Amer) Est GFR (Non-Af Amer) POC Glucose (mg/dL) 136 H Random Glucose Calcium Phosphorus Magnesium Total Bilirubin AST ALT Alkaline Phosphatase C-React Prot High Sens Total Protein Albumin Globulin Albumin/Globulin Ratio Lipase Venous Blood Potassium 3.7 Urine Color Urine Clarity Urine pH Ur Specific [place] Urine Protein Urine Glucose (UA) Urine Ketones Urine Blood Urine Nitrate Urine Bilirubin Urine Urobilinogen Ur Leukocyte Esterase Urine WBC (Auto) Urine RBC (Auto) Urine WBC Clumps (Auto) Amorphous Sediment Urine Bacteria Influenza Typ A,B (EIA) Negative for flu a/b Blood Type Antibody Screen 08/17/18 08/17/18 08/17/18 18:57 18:57 18:57 WBC 8.7 RBC 4.60 Hgb 13.7 Hct 39.3 MCV 85.4 D MCH 29.9 MCHC 35.0 RDW 15.0 H Plt Count 250 D MPV 8.3 Neut % (Auto) 71.5 Lymph % (Auto) 8.0 L Schleicher % (Auto) 20.3 H Eos % (Auto) 0.0 Baso % (Auto) 0.2 Neut # (Auto) 6.2 Lymph # (Auto) 0.7 L Schleicher # (Auto) 1.8 H Eos # (Auto) 0.0 Baso # (Auto) 0.0 Neutrophils % (Manual) 70 Band Neutrophils % 6 H Lymphocytes % (Manual) 4 L Monocytes % (Manual) 20 H Platelet Estimate Normal Giant Platelets Present ESR 112 H PT 13.1 H INR 1.2 APTT 37 H pO2 VBG pH VBG pCO2 VBG HCO3 VBG Total CO2 VBG O2 Sat (Calc) VBG Base Excess VBG Potassium Sodium 133 Chloride 96 L Glucose Lactate FiO2 Potassium 3.8 Carbon Dioxide 26 Anion Gap 14 BUN 26 H Creatinine 1.5 Est GFR ( Amer) 60 Est GFR (Non-Af Amer) 49 POC Glucose (mg/dL) Random Glucose 134 H D Calcium 8.7 Phosphorus 2.3 L Magnesium 2.3 Total Bilirubin 0.7 AST 42 ALT < 6 L Alkaline Phosphatase 70 C-React Prot High Sens Total Protein 7.5 Albumin 3.8 Globulin 3.8 Albumin/Globulin Ratio 1.0 Lipase 144 Venous Blood Potassium Urine Color Urine Clarity Urine pH Ur Specific [place] Urine Protein Urine Glucose (UA) Urine Ketones Urine Blood Urine Nitrate Urine Bilirubin Urine Urobilinogen Ur Leukocyte Esterase Urine WBC (Auto) Urine RBC (Auto) Urine WBC Clumps (Auto) Amorphous Sediment Urine Bacteria Influenza Typ A,B (EIA) Blood Type Antibody Screen 08/17/18 08/17/18 08/17/18 18:57 19:17 19:19 WBC RBC Hgb Hct MCV MCH MCHC RDW Plt Count MPV Neut % (Auto) Lymph % (Auto) Schleicher % (Auto) Eos % (Auto) Baso % (Auto) Neut # (Auto) Lymph # (Auto) Schleicher # (Auto) Eos # (Auto) Baso # (Auto) Neutrophils % (Manual) Band Neutrophils % Lymphocytes % (Manual) Monocytes % (Manual) Platelet Estimate Giant Platelets ESR PT INR APTT pO2 VBG pH VBG pCO2 VBG HCO3 VBG Total CO2 VBG O2 Sat (Calc) VBG Base Excess VBG Potassium Sodium Chloride Glucose Lactate FiO2 Potassium Carbon Dioxide Anion Gap BUN Creatinine Est GFR ( Amer) Est GFR (Non-Af Amer) POC Glucose (mg/dL) Random Glucose Calcium Phosphorus Magnesium Total Bilirubin AST ALT Alkaline Phosphatase C-React Prot High Sens > 15.00 H Total Protein Albumin Globulin Albumin/Globulin Ratio Lipase Venous Blood Potassium Urine Color Yellow Urine Clarity Hazy Urine pH 5.0 Ur Specific [place] 1.011 Urine Protein 2+ H Urine Glucose (UA) Normal Urine Ketones Negative Urine Blood 2+ H Urine Nitrate Negative Urine Bilirubin Negative Urine Urobilinogen Normal Ur Leukocyte Esterase 3+ H Urine WBC (Auto) 272 H Urine RBC (Auto) 15 H Urine WBC Clumps (Auto) Few H Amorphous Sediment Few H Urine Bacteria Mod H Influenza Typ A,B (EIA) Blood Type A POSITIVE Antibody Screen Negative Assessment & Plan - Assessment and Plan (Free Text) Assessment: 53M w/ juan luis-rectal abscess and Fistula in Ano Plan: - ABx for UTI - continue w/ medical management - will plan for surgery - will d/w Dr. Diaz [facility] PGY2
[2018-08-18] MEDS: Pantoprazole 40 mg EC Tab PO SCH (10:04)
--- NOTE | 2018-08-18 19:30 | CP.PCM.PN ---
Subjective - Date & Time of Evaluation Date of Evaluation: 08/18/18 Time of Evaluation: 15:15 - Subjective Subjective: patient is afebrile, alert and responsive. He is less fatigued today and less congested. He still has mild burning on urination.. Patient was evaluated by Dr. Diaz. Patient is still scheduled for I&D on Monday. He is receiving vancomycin IV without any secondary effects. Objective - Vital Signs/Intake and Output Vital Signs (last 24 hours): Temp Pulse Resp BP Pulse Ox 99.3 F 95 H 20 107/71 94 L 08/18/18 16:09 08/18/18 16:09 08/18/18 16:09 08/18/18 16:09 08/18/18 16:09 Intake and Output: 08/18/18 08/19/18 18:59 06:59 Intake Total 480 Output Total 700 Balance -220 - Medications Medications: Current Medications Allopurinol (Zyloprim) 100 mg PO DAILY [facility] Last Admin: 08/18/18 10:05 Dose: 100 mg Enalapril Maleate (Vasotec) 5 mg PO DAILY [facility] Last Admin: 08/18/18 10:04 Dose: 5 mg Enoxaparin Sodium (Lovenox) 70 mg SC Q12 [facility] Vancomycin/Sodium Chloride (Vancomycin 1 Gm/Ns 200 Ml) 1 gm in 200 mls @ 133 mls/hr IVPB Q24H [facility]; Protocol Stop: 08/23/18 21:01 Ibuprofen (Motrin Tab) 800 mg PO Q12H PRN PRN Reason: Pain, Mild (1-3) Pantoprazole Sodium (Protonix Ec Tab) 40 mg PO DAILY [facility] Last Admin: 08/18/18 10:04 Dose: 40 mg Rivaroxaban (Xarelto) 20 mg PO DAILY [facility] Last Admin: 08/18/18 10:05 Dose: Not Given - Labs Labs: 08/17/18 18:57 08/17/18 18:57 PT 13.1 SECONDS (9.7-12.2) H 08/17/18 18:57 INR 1.2 08/17/18 18:57 APTT 37 SECONDS (21-34) H 08/17/18 18:57 - Constitutional Appears: No Acute Distress - Head Exam Head Exam: NORMOCEPHALIC - Eye Exam Eye Exam: Normal appearance Pupil Exam: NORMAL ACCOMODATION - ENT Exam ENT Exam: Normal Exam - Neck Exam Neck Exam: Normal Inspection - Respiratory Exam Respiratory Exam: Decreased Breath Sounds - Cardiovascular Exam Cardiovascular Exam: REGULAR RHYTHM - GI/Abdominal Exam GI & Abdominal Exam: Tenderness, Normal Bowel Sounds - Rectal Exam Rectal Exam: Deferred - Exam Exam: NORMAL INSPECTION - Back Exam Back Exam: NORMAL INSPECTION - Neurological Exam Neurological Exam: Oriented x3 - Psychiatric Exam Psychiatric exam: Anxious - Skin Skin Exam: Rash Assessment and Plan (1) Peripheral vascular disease Status: Acute (2) UTI (urinary tract infection) Status: Acute (3) Degenerative joint disease Status: Acute (4) Fungal rash of torso Status: Acute (5) Wilma-rectal abscess Status: Acute
[2018-08-18] MEDS: Vancomycin 1 gm/NS 200 ml 1 GM/200 ML BAG IVPB SCH (21:50)
[2018-08-19 07:44] LABS: BASO % 0.5 % (0.0-2.0); EOS % 0.9 % (0.0-4.0); LYMPH # 0.8 K/uL (1.0-4.3); LYMPH % 14.8 % (20.0-40.0); MEAN CORPUSCULAR HEMOGLOBIN 30.5 pg (27.0-31.0); MEAN CORPUSCULAR HGB CONC 34.5 g/dL (33.0-37.0); MEAN PLATELET VOLUME 8.7 fL (7.2-11.7); MONO # 0.9 K/uL (0.0-0.8); MONO % 15.6 % (0.0-10.0); NEUT # 3.8 K/uL (1.8-7.0); NEUT % 68.2 % (50.0-75.0); NRBC % 0.1 % (0.0-2.0); RBC 4.26 Mil/uL (4.40-5.90); RED CELL DISTRIBUTION WIDTH 15.4 % (11.5-14.5); WHITE BLOOD COUNT 5.5 K/uL (4.8-10.8)
[2018-08-19 07:55] LABS: MEAN CELL VOLUME 88.3 fL (80.0-94.0)
[2018-08-19 08:02] LABS: ALB/GLOB RATIO 0.8 (1.0-2.1); ALBUMIN 3.4 g/dL (3.5-5.0); ALT/SGPT 8 U/L (21-72); AST/SGOT 20 U/L (17-59); BLOOD UREA NITROGEN 24 mg/dL (9-20); CALCIUM 8.5 mg/dl (8.6-10.4); GFR NON-AFRICAN AMERICAN > 60
[2018-08-19] MEDS: Enoxaparin 80 mg Syringe SC SCH ×3 (09:00→21:29)
[2018-08-19] MEDS: Pantoprazole 40 mg EC Tab PO SCH (10:07)
[2018-08-19] MEDS: Vancomycin 1 gm/NS 200 ml 1 GM/200 ML BAG IVPB SCH (21:29)
--- NOTE | 2018-08-20 07:55 | CP.PCM.PN ---
Subjective - Date & Time of Evaluation Date of Evaluation: 08/20/18 Time of Evaluation: 07:52 - Subjective Subjective: Surgery: Dr. Diaz Patient denies complaints. No acute issues overnight. Denies n/v/f/c. Denies urinary symptoms. Objective - Vital Signs/Intake and Output Vital Signs (last 24 hours): Temp Pulse Resp BP Pulse Ox 97.5 F L 71 20 105/68 96 08/19/18 23:35 08/20/18 03:40 08/19/18 23:35 08/19/18 23:35 08/19/18 23:35 Intake and Output: 08/20/18 08/20/18 06:59 18:59 Intake Total 500 Balance 500 - Medications Medications: Current Medications Allopurinol (Zyloprim) 100 mg PO DAILY [facility] Last Admin: 08/19/18 10:08 Dose: 100 mg Enalapril Maleate (Vasotec) 5 mg PO DAILY [facility] Last Admin: 08/19/18 10:06 Dose: Not Given Enoxaparin Sodium (Lovenox) 70 mg SC Q12 [facility] Last Admin: 08/19/18 21:29 Dose: 70 mg Vancomycin/Sodium Chloride (Vancomycin 1 Gm/Ns 200 Ml) 1 gm in 200 mls @ 133 mls/hr IVPB Q24H [facility]; Protocol Stop: 08/23/18 21:01 Last Admin: 08/19/18 21:29 Dose: 133 mls/hr Ibuprofen (Motrin Tab) 800 mg PO Q12H PRN PRN Reason: Pain, Mild (1-3) Pantoprazole Sodium (Protonix Ec Tab) 40 mg PO DAILY [facility] Last Admin: 08/19/18 10:07 Dose: 40 mg Rivaroxaban (Xarelto) 20 mg PO DAILY [facility] Last Admin: 08/18/18 10:05 Dose: Not Given - Labs Labs: 08/19/18 07:26 08/19/18 07:26 PT 13.1 SECONDS (9.7-12.2) H 08/17/18 18:57 INR 1.2 08/17/18 18:57 APTT 37 SECONDS (21-34) H 08/17/18 18:57 - Constitutional Appears: Chronically Ill - Head Exam Head Exam: ATRAUMATIC, NORMOCEPHALIC - Eye Exam Eye Exam: Normal appearance - ENT Exam ENT Exam: Mucous Membranes Moist - Respiratory Exam Respiratory Exam: NORMAL BREATHING PATTERN. absent: Respiratory Distress - Cardiovascular Exam Cardiovascular Exam: REGULAR RHYTHM. absent: Tachycardia Assessment and Plan - Assessment and Plan (Free Text) Assessment: 53 y/o male w/ anal fistula s/p seton placement admitted for UTI Plan: -urine culture + for Ecoli -if cleared from medical/infection standpoint will possibly consider OR monday vs monday for EUA -cont abx per primary, adjust to sensitivities if desired -further recs per Dr. Diaz AKite PGY4
[2018-08-20] MEDS: Enoxaparin 80 mg Syringe SC SCH ×2 (09:23→22:01)
[2018-08-20] MEDS: Pantoprazole 40 mg EC Tab PO SCH (09:23)
[2018-08-20] MEDS: Vancomycin 1 gm/NS 200 ml 1 GM/200 ML BAG IVPB SCH (20:37)
--- NOTE | 2018-08-20 22:39 | CP.PCM.PN ---
Subjective - Date & Time of Evaluation Date of Evaluation: 08/20/18 Time of Evaluation: 19:15 - Subjective Subjective: patient is less congested today. Headaches have diminished, he has less cough and less wheezing. Patient continues to complain of pain at the site of rectal abscess. He still feels very fatigued Objective - Vital Signs/Intake and Output Vital Signs (last 24 hours): Temp Pulse Resp BP Pulse Ox 98.2 F 78 18 116/81 96 08/20/18 15:51 08/20/18 15:51 08/20/18 15:51 08/20/18 15:51 08/20/18 15:51 Intake and Output: 08/20/18 08/21/18 18:59 06:59 Intake Total 500 350 Balance 500 350 - Medications Medications: Current Medications Allopurinol (Zyloprim) 100 mg PO DAILY [facility] Last Admin: 08/20/18 09:23 Dose: 100 mg Enalapril Maleate (Vasotec) 5 mg PO DAILY [facility] Last Admin: 08/20/18 09:29 Dose: Not Given Enoxaparin Sodium (Lovenox) 70 mg SC Q12 [facility] Last Admin: 08/20/18 22:01 Dose: 70 mg Vancomycin/Sodium Chloride (Vancomycin 1 Gm/Ns 200 Ml) 1 gm in 200 mls @ 133 mls/hr IVPB Q24H [facility]; Protocol Stop: 08/23/18 21:01 Last Admin: 08/20/18 20:37 Dose: 133 mls/hr Ibuprofen (Motrin Tab) 800 mg PO Q12H PRN PRN Reason: Pain, Mild (1-3) Pantoprazole Sodium (Protonix Ec Tab) 40 mg PO DAILY [facility] Last Admin: 08/20/18 09:23 Dose: 40 mg Rivaroxaban (Xarelto) 20 mg PO DAILY [facility] Last Admin: 08/18/18 10:05 Dose: Not Given - Labs Labs: 08/19/18 07:26 08/19/18 07:26 PT 13.1 SECONDS (9.7-12.2) H 08/17/18 18:57 INR 1.2 08/17/18 18:57 APTT 37 SECONDS (21-34) H 08/17/18 18:57 - Constitutional Appears: Chronically Ill - Head Exam Head Exam: NORMOCEPHALIC - Eye Exam Eye Exam: Normal appearance Pupil Exam: NORMAL ACCOMODATION - ENT Exam ENT Exam: Normal Exam - Neck Exam Neck Exam: Normal Inspection - Respiratory Exam Respiratory Exam: Decreased Breath Sounds - Cardiovascular Exam Cardiovascular Exam: REGULAR RHYTHM - GI/Abdominal Exam GI & Abdominal Exam: Hyperactive Bowel Sounds - Rectal Exam Rectal Exam: Deferred - Exam Exam: NORMAL INSPECTION - Back Exam Back Exam: NORMAL INSPECTION - Neurological Exam Neurological Exam: Oriented x3 - Psychiatric Exam Psychiatric exam: Normal Affect - Skin Skin Exam: Rash Assessment and Plan (1) Peripheral vascular disease Status: Acute (2) UTI (urinary tract infection) Status: Acute (3) Degenerative joint disease Status: Acute (4) Fungal rash of torso Status: Acute (5) Wilma-rectal abscess Status: Acute
--- NOTE | 2018-08-21 09:53 | CP.PCM.PN ---
Subjective - Date & Time of Evaluation Date of Evaluation: 08/21/18 Time of Evaluation: 09:51 - Subjective Subjective: Surgery Progress note- Dr. Diaz patient seen and examined. improving clinically. No new complaints at this time. Receiving IVAbx. + OOb and ambulating. Denies fevers, chills, chest pain, shortness of breath. Objective - Vital Signs/Intake and Output Vital Signs (last 24 hours): Temp Pulse Resp BP Pulse Ox 97.4 F L 69 20 113/74 95 08/21/18 07:00 08/21/18 07:00 08/21/18 07:00 08/21/18 07:00 08/21/18 07:00 Intake and Output: 08/21/18 08/21/18 06:59 18:59 Intake Total 350 Output Total 700 Balance -350 - Medications Medications: Current Medications Allopurinol (Zyloprim) 100 mg PO DAILY [facility] Last Admin: 08/20/18 09:23 Dose: 100 mg Enalapril Maleate (Vasotec) 5 mg PO DAILY [facility] Last Admin: 08/20/18 09:29 Dose: Not Given Enoxaparin Sodium (Lovenox) 70 mg SC Q12 [facility] Last Admin: 08/20/18 22:01 Dose: 70 mg Vancomycin/Sodium Chloride (Vancomycin 1 Gm/Ns 200 Ml) 1 gm in 200 mls @ 133 mls/hr IVPB Q24H [facility]; Protocol Stop: 08/23/18 21:01 Last Admin: 08/20/18 20:37 Dose: 133 mls/hr Ibuprofen (Motrin Tab) 800 mg PO Q12H PRN PRN Reason: Pain, Mild (1-3) Pantoprazole Sodium (Protonix Ec Tab) 40 mg PO DAILY [facility] Last Admin: 08/20/18 09:23 Dose: 40 mg Rivaroxaban (Xarelto) 20 mg PO DAILY [facility] Last Admin: 08/18/18 10:05 Dose: Not Given - Labs Labs: 08/19/18 07:26 08/19/18 07:26 PT 13.1 SECONDS (9.7-12.2) H 08/17/18 18:57 INR 1.2 08/17/18 18:57 APTT 37 SECONDS (21-34) H 08/17/18 18:57 - Constitutional Appears: Non-toxic, No Acute Distress - Head Exam Head Exam: ATRAUMATIC - Eye Exam Eye Exam: EOMI. absent: Scleral icterus - ENT Exam ENT Exam: Mucous Membranes Moist - Respiratory Exam Respiratory Exam: NORMAL BREATHING PATTERN. absent: Accessory Muscle Use, Respiratory Distress - Cardiovascular Exam Cardiovascular Exam: REGULAR RHYTHM. absent: Bradycardia, Tachycardia - GI/Abdominal Exam GI & Abdominal Exam: Soft. absent: Distended, Firm, Guarding, Rigid, Tenderness - Rectal Exam Additional comments: Silk stitch seton in place - Neurological Exam Neurological Exam: Alert, Awake, Oriented x3 - Psychiatric Exam Psychiatric exam: Normal Affect - Skin Skin Exam: Intact, Warm Assessment and Plan - Assessment and Plan (Free Text) Assessment: 53Mw/ anal fistula s/p seton placement admitted for UTI Plan: -urine culture + for Ecoli -if cleared from medical/infection standpoint will possibly consider OR Tomorrow Monday for EUA -NPO after MN -cont abx per primary, adjust to sensitivities if desired -further recs per Dr. Joe Barrett PGy2
[2018-08-21] MEDS: Pantoprazole 40 mg EC Tab PO SCH (11:00)
[2018-08-21] MEDS: Enoxaparin 80 mg Syringe SC SCH ×2 (11:31→21:45)
[2018-08-21] MEDS: Vancomycin 1 gm/NS 200 ml 1 GM/200 ML BAG IVPB SCH (21:45)
--- NOTE | 2018-08-21 22:55 | CP.PCM.PN ---
Subjective - Date & Time of Evaluation Date of Evaluation: 08/21/18 Time of Evaluation: 19:05 - Subjective Subjective: patient continues to improve. He is afebrile and denies any chest discomfort. Repeat urinalysis and EKG requested. Patient may be scheduled for I&D tomorrow Objective - Vital Signs/Intake and Output Vital Signs (last 24 hours): Temp Pulse Resp BP Pulse Ox 96.0 F L 84 20 107/73 97 08/21/18 15:05 08/21/18 16:48 08/21/18 15:05 08/21/18 15:05 08/21/18 15:05 Intake and Output: 08/21/18 08/22/18 18:59 06:59 Intake Total 420 Balance 420 - Medications Medications: Current Medications Allopurinol (Zyloprim) 100 mg PO DAILY [facility] Last Admin: 08/21/18 11:00 Dose: 100 mg Enalapril Maleate (Vasotec) 5 mg PO DAILY [facility] Last Admin: 08/21/18 11:00 Dose: 5 mg Enoxaparin Sodium (Lovenox) 70 mg SC Q12 [facility] Last Admin: 08/21/18 21:45 Dose: 70 mg Vancomycin/Sodium Chloride (Vancomycin 1 Gm/Ns 200 Ml) 1 gm in 200 mls @ 133 mls/hr IVPB Q24H [facility]; Protocol Stop: 08/23/18 21:01 Last Admin: 08/21/18 21:45 Dose: 133 mls/hr Lactated Ringer's (Lactated Ringer's) 1,000 mls @ 140 mls/hr IV .Q7H9M [facility] Ibuprofen (Motrin Tab) 800 mg PO Q12H PRN PRN Reason: Pain, Mild (1-3) Pantoprazole Sodium (Protonix Ec Tab) 40 mg PO DAILY [facility] Last Admin: 08/21/18 11:00 Dose: 40 mg Rivaroxaban (Xarelto) 20 mg PO DAILY [facility] Last Admin: 08/18/18 10:05 Dose: Not Given - Labs Labs: 08/19/18 07:26 08/19/18 07:26 PT 13.1 SECONDS (9.7-12.2) H 08/17/18 18:57 INR 1.2 08/17/18 18:57 APTT 37 SECONDS (21-34) H 08/17/18 18:57 - Constitutional Appears: No Acute Distress - Head Exam Head Exam: NORMOCEPHALIC - Eye Exam Eye Exam: Normal appearance Pupil Exam: NORMAL ACCOMODATION - ENT Exam ENT Exam: Normal Exam - Neck Exam Neck Exam: Normal Inspection - Respiratory Exam Respiratory Exam: Decreased Breath Sounds - Cardiovascular Exam Cardiovascular Exam: REGULAR RHYTHM - GI/Abdominal Exam GI & Abdominal Exam: Normal Bowel Sounds - Rectal Exam Rectal Exam: Deferred - Exam Exam: NORMAL INSPECTION - Extremities Exam Extremities Exam: Normal Inspection - Back Exam Back Exam: NORMAL INSPECTION - Neurological Exam Neurological Exam: Oriented x3 - Psychiatric Exam Psychiatric exam: Normal Affect - Skin Skin Exam: Dry Assessment and Plan (1) Peripheral vascular disease Status: Acute (2) UTI (urinary tract infection) Status: Acute (3) Degenerative joint disease Status: Acute (4) Fungal rash of torso Status: Acute (5) Wilma-rectal abscess Status: Acute
[2018-08-21] MEDS: Lactated Ringer's 1,000 ML IV SCH (23:35)
[2018-08-22 01:52] LABS: SQUAMOUS EPITHIAL < 1 /hpf (0-5); URINE BILIRUBIN NEGATIVE (NEGATIVE); URINE BLOOD NEGATIVE (NEGATIVE); URINE CLARITY Clear (Clear); URINE COLOR Straw (YELLOW); URINE GLUCOSE (UA) NORMAL (Normal); URINE LEUKOCYTE ESTERASE NEG Leu/uL (Negative); URINE PROTEIN NEGATIVE (NEGATIVE); URINE UROBILINOGEN NORMAL mg/dL (0.2-1.0)
--- NOTE | 2018-08-22 03:32 | CARD ---
APPROVED REPORT Date of service: 08/17/2018 EKG Measurement Heart [id number] SC [id number] <Conclusion> Sinus tachycardia Possible Left atrial enlargement Left axis deviation Right bundle branch block Left ventricular hypertrophy Cannot rule out Septal infarct, age undetermined Abnormal ECG
[2018-08-22 06:46] LABS: BASO # 0.1 K/uL (0.0-0.2); BASO % 0.9 % (0.0-2.0); EOS # 0.1 K/uL (0.0-0.7); EOS % 1.7 % (0.0-4.0); HEMOGLOBIN 12.1 g/dL (12.0-18.0); LYMPH # 1.2 K/uL (1.0-4.3); LYMPH % 17.9 % (20.0-40.0); MEAN CELL VOLUME 88.8 fL (80.0-94.0); MEAN CORPUSCULAR HEMOGLOBIN 28.8 pg (27.0-31.0); MEAN CORPUSCULAR HGB CONC 32.4 g/dL (33.0-37.0); MEAN PLATELET VOLUME 7.7 fL (7.2-11.7); MONO # 0.5 K/uL (0.0-0.8); MONO % 7.4 % (0.0-10.0); NEUT # 4.8 K/uL (1.8-7.0); NEUT % 72.1 % (50.0-75.0); RBC 4.2 Mil/uL (4.40-5.90); RED CELL DISTRIBUTION WIDTH 15.1 % (11.5-14.5); WHITE BLOOD COUNT 6.6 K/uL (4.8-10.8)
[2018-08-22 06:57] LABS: PROTHROMBIN TIME 11.2 SECONDS (9.7-12.2)
[2018-08-22 07:11] LABS: ALB/GLOB RATIO 1.2 (1.0-2.1); ALBUMIN 3.4 g/dL (3.5-5.0); ALT/SGPT 24 U/L (21-72); AST/SGOT 66 U/L (17-59); BLOOD UREA NITROGEN 23 mg/dL (9-20); CALCIUM 7.7 mg/dl (8.6-10.4); GFR NON-AFRICAN AMERICAN > 60
[2018-08-22] MEDS: Lactated Ringer's 1,000 ML IV SCH ×2 (07:12→21:18)
[2018-08-22] MEDS ORDERED: Propofol 10 mg/ml Inj (20 ML) ONE ×2 (07:24→07:57)
[2018-08-22] MEDS ORDERED: Phenylephrine 10 mg/ml Inj ONE (07:25)
[2018-08-22] MEDS ORDERED: Bupivacaine 0.5%/Epi 1:200,000 (10 ML SOL) ONE (07:41)
[2018-08-22] MEDS ORDERED: Midazolam 2 MG/2 ML VIAL ONE (07:57)
[2018-08-22] MEDS ORDERED: Lidocaine/Epinephrine 1% 1:100000 10 ML IJ ONE (08:02)
[2018-08-22] MEDS ORDERED: Vancomycin 1 gm/D5W 200 ml 1 GM/200 ML BAG IVPB ONE (08:03)
--- NOTE | 2018-08-22 08:59 | PCM.SURG1 ---
Surgeon's Initial Post Op Note - Surgeon's Notes Surgeon: marilee Pacs Administrator: 0 Type of Anesthesia: General LMA Anesthesia Administered By: enma Pre-Operative Diagnosis: rectal fistula on patient's right side Operative Findings: deep fistula Post-Operative Diagnosis: same Operation Performed: fistultomy and removal of seton Specimen/Specimens Removed: fistula tract Estimated Blood Loss: EBL {In ML}: 50 Blood Products Given: N/A Drains Used: No Drains Post-Op Condition: Good Date of Surgery/Procedure: 08/22/18 Time of Surgery/Procedure: 08:58
[2018-08-22] MEDS ORDERED: Oxycodone/Acetaminophen 5/325 mg Tab PO PRN (09:01)
[2018-08-22] MEDS ORDERED: HYDROmorphone 1 mg/ml ISec IVP PRN (09:07)
[2018-08-22] MEDS: Pantoprazole 40 mg EC Tab PO SCH (11:45)
--- NOTE | 2018-08-22 18:29 | CARD ---
APPROVED REPORT Date of service: 08/21/2018 EKG Measurement Heart [id number] CT [id number] <Conclusion> Normal sinus rhythm Incomplete right bundle branch block Minimal voltage criteria for LVH, may be normal variant Borderline ECG
[2018-08-22] MEDS: Vancomycin 1 gm/NS 200 ml 1 GM/200 ML BAG IVPB SCH (20:39)
--- NOTE | 2018-08-22 22:26 | CP.PCM.PN ---
Subjective - Date & Time of Evaluation Date of Evaluation: 08/22/18 Time of Evaluation: 19:05 - Subjective Subjective: patient is alert and responsive. He denies severe pain or discomfort. Patient underwent a surgical procedure for a rectal fistula this morning. Patient tolerated the procedure well. Continue present medications. Objective - Vital Signs/Intake and Output Vital Signs (last 24 hours): Temp Pulse Resp BP Pulse Ox 97.5 F L 75 18 107/73 100 08/22/18 15:40 08/22/18 15:40 08/22/18 15:40 08/22/18 15:40 08/22/18 15:40 Intake and Output: 08/22/18 08/23/18 18:59 06:59 Intake Total 1230 Output Total 480 550 Balance 750 -550 - Medications Medications: Current Medications Allopurinol (Zyloprim) 100 mg PO DAILY [facility] Last Admin: 08/22/18 11:47 Dose: 100 mg Docusate Sodium (Colace) 100 mg PO BID [facility] Last Admin: 08/22/18 17:31 Dose: 100 mg Enalapril Maleate (Vasotec) 5 mg PO DAILY [facility] Last Admin: 08/22/18 11:47 Dose: 5 mg Vancomycin/Sodium Chloride (Vancomycin 1 Gm/Ns 200 Ml) 1 gm in 200 mls @ 133 mls/hr IVPB Q24H [facility]; Protocol Stop: 08/23/18 21:01 Last Admin: 08/22/18 20:39 Dose: 133 mls/hr Lactated Ringer's (Lactated Ringer's) 1,000 mls @ 140 mls/hr IV .Q7H9M [facility] Last Admin: 08/22/18 21:18 Dose: Not Given Ibuprofen (Motrin Tab) 800 mg PO Q12H PRN PRN Reason: Pain, Mild (1-3) Oxycodone/Acetaminophen (Percocet 5/325 Mg Tab) 1 tab PO Q4H PRN PRN Reason: Pain, moderate (4-7) Stop: 08/25/18 09:02 Pantoprazole Sodium (Protonix Ec Tab) 40 mg PO DAILY [facility] Last Admin: 08/22/18 11:45 Dose: 40 mg Rivaroxaban (Xarelto) 20 mg PO DAILY [facility] - Labs Labs: 08/22/18 06:36 08/22/18 06:36 PT 11.2 SECONDS (9.7-12.2) 08/22/18 06:36 INR 1.0 08/22/18 06:36 APTT 33.0 SECONDS (21-34) 08/22/18 06:36 - Constitutional Appears: In Acute Distress - Head Exam Head Exam: NORMOCEPHALIC - Eye Exam Eye Exam: Normal appearance Pupil Exam: NORMAL ACCOMODATION - ENT Exam ENT Exam: Normal Exam - Neck Exam Neck Exam: Normal Inspection - Respiratory Exam Respiratory Exam: Decreased Breath Sounds - Cardiovascular Exam Cardiovascular Exam: REGULAR RHYTHM - GI/Abdominal Exam GI & Abdominal Exam: Normal Bowel Sounds - Rectal Exam Rectal Exam: absent: Deferred - Exam Exam: NORMAL INSPECTION - Extremities Exam Extremities Exam: Normal Inspection - Back Exam Back Exam: NORMAL INSPECTION - Neurological Exam Neurological Exam: Oriented x3 - Psychiatric Exam Psychiatric exam: Normal Affect - Skin Skin Exam: Dry Assessment and Plan (1) Peripheral vascular disease Status: Acute (2) UTI (urinary tract infection) Status: Acute (3) Degenerative joint disease Status: Acute (4) Fungal rash of torso Status: Acute (5) Wilma-rectal abscess Status: Acute
--- NOTE | 2018-08-23 07:58 | CP.PCM.PN ---
Subjective - Date & Time of Evaluation Date of Evaluation: 08/23/18 Time of Evaluation: 07:56 - Subjective Subjective: Surgery: Dr. Diaz Patient doing well denies perirectal pain. Minimal bleeding last night with wiping but no other bleeding noted. Denies f/c/n/v. Objective - Vital Signs/Intake and Output Vital Signs (last 24 hours): Temp Pulse Resp BP Pulse Ox 98.2 F 61 20 107/71 98 08/23/18 04:10 08/23/18 07:45 08/23/18 04:10 08/23/18 04:10 08/23/18 04:10 Intake and Output: 08/23/18 08/23/18 06:59 18:59 Intake Total 450 Output Total 550 Balance -100 - Medications Medications: Current Medications Allopurinol (Zyloprim) 100 mg PO DAILY [facility] Last Admin: 08/22/18 11:47 Dose: 100 mg Docusate Sodium (Colace) 100 mg PO BID [facility] Last Admin: 08/22/18 17:31 Dose: 100 mg Enalapril Maleate (Vasotec) 5 mg PO DAILY [facility] Last Admin: 08/22/18 11:47 Dose: 5 mg Vancomycin/Sodium Chloride (Vancomycin 1 Gm/Ns 200 Ml) 1 gm in 200 mls @ 133 mls/hr IVPB Q24H [facility]; Protocol Stop: 08/23/18 21:01 Last Admin: 08/22/18 20:39 Dose: 133 mls/hr Lactated Ringer's (Lactated Ringer's) 1,000 mls @ 140 mls/hr IV .Q7H9M [facility] Last Admin: 08/22/18 21:18 Dose: Not Given Ibuprofen (Motrin Tab) 800 mg PO Q12H PRN PRN Reason: Pain, Mild (1-3) Oxycodone/Acetaminophen (Percocet 5/325 Mg Tab) 1 tab PO Q4H PRN PRN Reason: Pain, moderate (4-7) Stop: 08/25/18 09:02 Pantoprazole Sodium (Protonix Ec Tab) 40 mg PO DAILY [facility] Last Admin: 08/22/18 11:45 Dose: 40 mg Rivaroxaban (Xarelto) 20 mg PO DAILY [facility] - Labs Labs: 08/22/18 06:36 08/22/18 06:36 PT 11.2 SECONDS (9.7-12.2) 08/22/18 06:36 INR 1.0 08/22/18 06:36 APTT 33.0 SECONDS (21-34) 08/22/18 06:36 - Constitutional Appears: Non-toxic, No Acute Distress - Head Exam Head Exam: ATRAUMATIC, NORMOCEPHALIC - Eye Exam Eye Exam: EOMI, Normal appearance - ENT Exam ENT Exam: Mucous Membranes Moist - Respiratory Exam Respiratory Exam: NORMAL BREATHING PATTERN. absent: Respiratory Distress - Cardiovascular Exam Cardiovascular Exam: REGULAR RHYTHM. absent: Tachycardia - GI/Abdominal Exam GI & Abdominal Exam: Soft. absent: Distended, Tenderness Assessment and Plan - Assessment and Plan (Free Text) Assessment: 53 y/o male s/p fistulotomy POD1 Plan: -Sitz baths BID -senna colace mirilax to prevent constipation -further care per primary team -no further intervention at this time -further rec per Dr. Joe Melton PGY4
[2018-08-23 08:30] LABS: BLOOD UREA NITROGEN 18 mg/dL (9-20); CALCIUM 8.6 mg/dl (8.6-10.4); GFR NON-AFRICAN AMERICAN > 60
[2018-08-23] MEDS: Pantoprazole 40 mg EC Tab PO SCH (09:58)
[2018-08-23] MEDS: Lactated Ringer's 1,000 ML IV SCH (10:35)
--- NOTE | 2018-08-23 11:15 | OP ---
PROCEDURE DATE: 08/22/2018 PREOPERATIVE DIAGNOSIS: Rectal fistula status post seton placement. POSTOPERATIVE DIAGNOSIS: Rectal fistula status post seton placement. PROCEDURE CARRIED OUT: Fistulotomy and removal of seton. SURGEON: Jason Diaz Jr., MD MANAGER RAIL: None. ANESTHESIOLOGIST: True Becker MD INDICATIONS: The patient is a middle-aged man with multiple medical problems who presented with a large complex fistula early in the year and an abscess. He underwent drainage, seton was placed, and he now presents for removal of this. OPERATIVE FINDINGS: 1. The seton was removed. 2. The tract was identified, it was curetted out and cauterized open. It was packed opening; after hemostasis was obtained with the use of both cautery and Marcaine with epinephrine, the procedure was terminated. BLOOD LOSS: Approximately 50 mL. OPERATION CARRIED OUT: Rectal fistulotomy and removal of seton. SPECIMEN: Fragments of the fistulous tract. INCOMPLETE DICTATION Jason Diaz Jr., MD
[2018-08-23 16:47] VITALS: RESP 20
[2018-08-23] MEDS: Vancomycin 1 gm/NS 200 ml 1 GM/200 ML BAG IVPB SCH (20:46)
--- NOTE | 2018-08-23 22:29 | CP.PCM.PN ---
Subjective - Date & Time of Evaluation Date of Evaluation: 08/23/18 Time of Evaluation: 19:10 - Subjective Subjective: Patient denies pain or discomfort. He has been afebrile during the past 24 hours. He denies any burning on urination. Mild stiffness continues in both knees. Patient will resume xeralto tomorrow. Objective - Vital Signs/Intake and Output Vital Signs (last 24 hours): Temp Pulse Resp BP Pulse Ox 97.8 F 82 20 109/72 99 08/23/18 15:45 08/23/18 15:45 08/23/18 15:45 08/23/18 15:45 08/23/18 15:45 Intake and Output: 08/23/18 08/24/18 18:59 06:59 Intake Total 500 Output Total 300 Balance 500 -300 - Medications Medications: Current Medications Allopurinol (Zyloprim) 100 mg PO DAILY [facility] Last Admin: 08/23/18 09:58 Dose: 100 mg Docusate Sodium (Colace) 100 mg PO BID [facility] Last Admin: 08/23/18 17:43 Dose: 100 mg Enalapril Maleate (Vasotec) 5 mg PO DAILY [facility] Last Admin: 08/23/18 09:57 Dose: 5 mg Lactated Ringer's (Lactated Ringer's) 1,000 mls @ 140 mls/hr IV .Q7H9M [facility] Last Admin: 08/22/18 21:18 Dose: Not Given Ibuprofen (Motrin Tab) 800 mg PO Q12H PRN PRN Reason: Pain, Mild (1-3) Oxycodone/Acetaminophen (Percocet 5/325 Mg Tab) 1 tab PO Q4H PRN PRN Reason: Pain, moderate (4-7) Stop: 08/25/18 09:02 Pantoprazole Sodium (Protonix Ec Tab) 40 mg PO DAILY [facility] Last Admin: 08/23/18 09:58 Dose: 40 mg Rivaroxaban (Xarelto) 20 mg PO DAILY [facility] Last Admin: 08/23/18 09:59 Dose: 20 mg - Labs Labs: 08/22/18 06:36 08/23/18 07:57 PT 11.2 SECONDS (9.7-12.2) 08/22/18 06:36 INR 1.0 08/22/18 06:36 APTT 33.0 SECONDS (21-34) 08/22/18 06:36 - Constitutional Appears: No Acute Distress - Head Exam Head Exam: NORMOCEPHALIC - Eye Exam Eye Exam: Normal appearance Pupil Exam: NORMAL ACCOMODATION - ENT Exam ENT Exam: Normal Exam - Neck Exam Neck Exam: Normal Inspection - Respiratory Exam Respiratory Exam: Decreased Breath Sounds - Cardiovascular Exam Cardiovascular Exam: REGULAR RHYTHM - GI/Abdominal Exam GI & Abdominal Exam: Normal Bowel Sounds - Rectal Exam Rectal Exam: Deferred - Exam Exam: NORMAL INSPECTION - Extremities Exam Extremities Exam: Tenderness - Back Exam Back Exam: NORMAL INSPECTION - Neurological Exam Neurological Exam: Oriented x3 - Psychiatric Exam Psychiatric exam: Normal Affect - Skin Skin Exam: Dry Assessment and Plan (1) Peripheral vascular disease Status: Acute (2) UTI (urinary tract infection) Status: Acute (3) Degenerative joint disease Status: Acute (4) Fungal rash of torso Status: Acute (5) Wilma-rectal abscess Status: Acute
[2018-08-24 01:55] VITALS: O2SAT 97
[2018-08-24] MEDS: Lactated Ringer's 1,000 ML IV SCH ×2 (03:38→08:11)
[2018-08-24 07:43] VITALS: BP 121/80; TEMP 97.8
[2018-08-24 08:18] VITALS: PULSE 70
[2018-08-24] MEDS: Pantoprazole 40 mg EC Tab PO SCH (09:37)
--- NOTE | 2018-08-24 12:49 | CP.PCM.PN ---
Subjective - Date & Time of Evaluation Date of Evaluation: 08/24/18 Time of Evaluation: 12:45 - Subjective Subjective: 53 year old male that presented to the ER with nausea, vomiting, and generalized weakness. 53 year old male that presented to the ER with nausea, vomitting, and generalized weakness. Pt admitted with with UTI/Sepsis. Pt seen and examined. Pt alert and oriented x3 with no signs and symptoms of acute distress. VSS. Discussed discharge with Dr. Brown. Discharge instructions given, pt will resume all home medicastions. Objective - Vital Signs/Intake and Output Vital Signs (last 24 hours): Temp Pulse Resp BP Pulse Ox 97.8 F 70 20 121/80 97 08/24/18 07:00 08/24/18 07:19 08/24/18 07:00 08/24/18 09:40 08/24/18 07:00 Intake and Output: 08/24/18 08/24/18 06:59 18:59 Intake Total 350 Output Total 1300 Balance -950 - Medications Medications: Current Medications Allopurinol (Zyloprim) 100 mg PO DAILY [facility] Last Admin: 08/24/18 09:37 Dose: 100 mg Docusate Sodium (Colace) 100 mg PO BID [facility] Last Admin: 08/24/18 09:37 Dose: 100 mg Enalapril Maleate (Vasotec) 5 mg PO DAILY [facility] Last Admin: 08/24/18 09:40 Dose: 5 mg Lactated Ringer's (Lactated Ringer's) 1,000 mls @ 140 mls/hr IV .Q7H9M [facility] Last Admin: 08/24/18 08:11 Dose: Not Given Ibuprofen (Motrin Tab) 800 mg PO Q12H PRN PRN Reason: Pain, Mild (1-3) Oxycodone/Acetaminophen (Percocet 5/325 Mg Tab) 1 tab PO Q4H PRN PRN Reason: Pain, moderate (4-7) Stop: 08/25/18 09:02 Pantoprazole Sodium (Protonix Ec Tab) 40 mg PO DAILY [facility] Last Admin: 08/24/18 09:37 Dose: 40 mg Rivaroxaban (Xarelto) 20 mg PO DAILY [facility] Last Admin: 08/24/18 09:37 Dose: 20 mg - Labs Labs: 08/22/18 06:36 08/23/18 07:57 PT 11.2 SECONDS (9.7-12.2) 08/22/18 06:36 INR 1.0 08/22/18 06:36 APTT 33.0 SECONDS (21-34) 08/22/18 06:36 Assessment and Plan - Assessment and Plan (Free Text) Assessment: 53 year old male that presented to the ER with nausea, vomitting, and generalized weakness. Pt admitted with with UTI/Sepsis. Pt seen and examined. Pt alert and oriented x3 with no signs and symptoms of acute distress. VSS. Discussed discharge with Dr. Brown. Discharge instructions given, pt will resume all home medicastions. Plan: alert and oriented x3 with no complaints. VSS.
--- NOTE | 2018-08-24 17:01 | PCM.HF ---
Heart Failure Core Measure - Heart Failure Ejection Fraction: 40 % or Greater (EF 54%) Left Ventricular Function to be assessed after discharge: No WILLARD Inhibitor Prescribed: Yes Contraindication/Reason for not providing: EF >40% Angiotensin II Receptor Ar[place]ia Prescribed: No Contraindication/Reason for not providing: pt on WILLARD Inhibitor AnticoagulationTherapy for Atrial Fibrillation/Atrialflutter: Yes Aldosterone Antagonist Prescribed: No Contraindication/Reason for not providing: EF >40% Hydralazine Nitrate Prescribed: No Contraindication/Reason for not providing: pt EF >40% Implantable Cardioverter Defibrillator Therapy: No Contraindication/Reason for not providing: EF >40% Cardiac Resynchronization Therapy Prescribed: No Contraindication/Reason for not providing: not indicated - Follow up Will be discharged to: Home Follow Up Date (must be within 7 days from discharge): 08/28/18 Follow Up Time: 10:00
--- NOTE | 2018-08-24 22:23 | CP.PCM.DIS ---
Provider - Provider Date of Admission: 08/17/18 20:28 Attending physician: Daquan Brown MD Consults: 08/17/18 20:30 General Surgery Consult Routine Comment: Consulting Provider: Jason Diaz Jr. Consulting Physician: Jason Diaz Jr. Reason for Consult: buttock abscess 08/18/18 00:10 Nursing Referral for Palliative Care Routine Comment: Physician Instructions: Reason For Exam: protocol 08/18/18 00:23 Inpatient [facility] Core Measures Referral Routine Comment: Physician Instructions: Reason For Exam: history pneumonia Nursing Referral for Wound Care Routine Comment: Physician Instructions: Reason For Exam: patient with bilateral leg wounds Time Spent in preparation of Discharge (in minutes): 26 Diagnosis - Discharge Diagnosis (1) Peripheral vascular disease Status: Acute (2) UTI (urinary tract infection) Status: Acute (3) Degenerative joint disease Status: Acute Priority: Medium (4) Fungal rash of torso Status: Acute Priority: Medium (5) Wilma-rectal abscess Status: Acute Hospital Course - Lab Results Lab Results: Micro Results 08/17/18 19:21 Blood-Venous Blood Culture - Final NO GROWTH AFTER 5 DAYS 08/17/18 19:21 Blood-Venous Gram Stain - Final TEST NOT PERFORMED 08/17/18 19:21 Blood-Venous Blood Culture - Final NO GROWTH AFTER 5 DAYS 08/17/18 19:21 Blood-Venous Gram Stain - Final TEST NOT PERFORMED 08/17/18 19:19 Urine Random Urine Culture - Final Escherichia Coli Most Recent Lab Values WBC 6.6 K/uL (4.8-10.8) 08/22/18 06:36 RBC 4.20 Mil/uL (4.40-5.90) L 08/22/18 06:36 Hgb 12.1 g/dL (12.0-18.0) 08/22/18 06:36 Hct 37.3 % (35.0-51.0) 08/22/18 06:36 MCV 88.8 fL (80.0-94.0) 08/22/18 06:36 MCH 28.8 pg (27.0-31.0) 08/22/18 06:36 MCHC 32.4 g/dL (33.0-37.0) L 08/22/18 06:36 RDW 15.1 % (11.5-14.5) H 08/22/18 06:36 Plt Count 399 K/uL (130-400) D 08/22/18 06:36 MPV 7.7 fL (7.2-11.7) 08/22/18 06:36 Neut % (Auto) 72.1 % (50.0-75.0) 08/22/18 06:36 Lymph % (Auto) 17.9 % (20.0-40.0) L 08/22/18 06:36 Tucker % (Auto) 7.4 % (0.0-10.0) 08/22/18 06:36 Eos % (Auto) 1.7 % (0.0-4.0) 08/22/18 06:36 Baso % (Auto) 0.9 % (0.0-2.0) 08/22/18 06:36 Neut # (Auto) 4.8 K/uL (1.8-7.0) 08/22/18 06:36 Lymph # (Auto) 1.2 K/uL (1.0-4.3) 08/22/18 06:36 Tucker # (Auto) 0.5 K/uL (0.0-0.8) 08/22/18 06:36 Eos # (Auto) 0.1 K/uL (0.0-0.7) 08/22/18 06:36 Baso # (Auto) 0.1 K/uL (0.0-0.2) 08/22/18 06:36 Neutrophils % (Manual) 70 % (50-75) 08/17/18 18:57 Band Neutrophils % 6 % (0-2) H 08/17/18 18:57 Lymphocytes % (Manual) 4 % (20-40) L 08/17/18 18:57 Monocytes % (Manual) 20 % (0-10) H 08/17/18 18:57 Platelet Estimate Normal (NORMAL) 08/17/18 18:57 Giant Platelets Present 08/17/18 18:57 ESR 112 mm/hr (0-15) H 08/17/18 18:57 PT 11.2 SECONDS (9.7-12.2) 08/22/18 06:36 INR 1.0 08/22/18 06:36 APTT 33.0 SECONDS (21-34) 08/22/18 06:36 pO2 57 mm/Hg (30-55) H 08/17/18 18:55 VBG pH 7.54 (7.32-7.43) H 08/17/18 18:55 VBG pCO2 32 mmHg (40-60) L 08/17/18 18:55 VBG HCO3 28.9 mmol/L 08/17/18 18:55 VBG Total CO2 28.4 mmol/L (22-28) H 08/17/18 18:55 VBG O2 Sat (Calc) 94.9 % (40-65) H 08/17/18 18:55 VBG Base Excess 5.2 mmol/L (0.0-2.0) H 08/17/18 18:55 VBG Potassium 3.7 mmol/L (3.6-5.2) 08/17/18 18:55 Sodium 132.0 mmol/l (132-148) 08/17/18 18:55 Chloride 101.0 mmol/L (98-107) 08/17/18 18:55 Glucose 130 mg/dl (75-110) H 08/17/18 18:55 Lactate 1.5 mmol/L (0.7-2.1) 08/17/18 18:55 FiO2 21.0 % 08/17/18 18:55 Sodium 137 mmol/L (132-148) 08/23/18 07:57 Potassium 4.5 mmol/L (3.6-5.2) 08/23/18 07:57 Chloride 106 mmol/L (98-107) 08/23/18 07:57 Carbon Dioxide 26 mmol/L (22-30) 08/23/18 07:57 Anion Gap 9 (10-20) L 08/23/18 07:57 BUN 18 mg/dL (9-20) 08/23/18 07:57 Creatinine 1.0 mg/dL (0.8-1.5) 08/23/18 07:57 Est GFR ( Amer) > 60 08/23/18 07:57 Est GFR (Non-Af Amer) > 60 08/23/18 07:57 POC Glucose (mg/dL) 88 mg/dL (65-110) 08/24/18 11:13 Random Glucose 91 mg/dL (75-110) 08/23/18 07:57 Calcium 8.6 mg/dl (8.6-10.4) 08/23/18 07:57 Phosphorus 3.8 mg/dL (2.5-4.5) 08/23/18 07:57 Magnesium 2.2 mg/dL (1.6-2.3) 08/23/18 07:57 Total Bilirubin 0.3 mg/dL (0.2-1.3) 08/22/18 06:36 AST 66 U/L (17-59) H D 08/22/18 06:36 ALT 24 U/L (21-72) 08/22/18 06:36 Alkaline Phosphatase 50 U/L (38-126) 08/22/18 06:36 C-React Prot High Sens > 15.00 mg/L (1.00-3.00) H 08/17/18 18:57 Total Protein 6.3 g/dL (6.3-8.3) 08/22/18 06:36 Albumin 3.4 g/dL (3.5-5.0) L 08/22/18 06:36 Globulin 2.9 gm/dL (2.2-3.9) 08/22/18 06:36 Albumin/Globulin Ratio 1.2 (1.0-2.1) 08/22/18 06:36 Lipase 144 U/L (23-300) 08/17/18 18:57 Prostate Specific Ag 4.62 ng/mL (0.00-4.0) H 08/17/18 18:57 Venous Blood Potassium 3.7 mmol/L (3.6-5.2) 08/17/18 18:55 Urine Color Straw (YELLOW) 08/22/18 01:45 Urine Clarity Clear (Clear) 08/22/18 01:45 Urine pH 6.0 (5.0-8.0) 08/22/18 01:45 Ur Specific [place] 1.009 (1.003-1.030) 08/22/18 01:45 Urine Protein Negative mg/dL (NEGATIVE) 08/22/18 01:45 Urine Glucose (UA) Normal mg/dL (Normal) 08/22/18 01:45 Urine Ketones Negative mg/dL (NEGATIVE) 08/22/18 01:45 Urine Blood Negative (NEGATIVE) 08/22/18 01:45 Urine Nitrate Negative (NEGATIVE) 08/22/18 01:45 Urine Bilirubin Negative (NEGATIVE) 08/22/18 01:45 Urine Urobilinogen Normal mg/dL (0.2-1.0) 08/22/18 01:45 Ur Leukocyte Esterase Neg Loi/uL (Negative) 08/22/18 01:45 Urine WBC (Auto) 3 /hpf (0-5) 08/22/18 01:45 Urine RBC (Auto) 1 /hpf (0-3) 08/22/18 01:45 Urine WBC Clumps (Auto) Few /hpf (NONE) H 08/17/18 19:19 Ur Squamous Epith Cells < 1 /hpf (0-5) 08/22/18 01:45 Amorphous Sediment Few /ul (<OCC) H 08/17/18 19:19 Urine Bacteria Mod (<OCC) H 08/17/18 19:19 Cycl Citrul Peptide IgG <16 Units 08/19/18 07:26 Influenza Typ A,B (EIA) Negative for flu a/b (NEGATIVE) 08/17/18 18:54 Blood Type A POSITIVE 08/22/18 06:36 Antibody Screen Negative 08/22/18 06:36 Discharge Exam - Head Exam Head Exam: NORMOCEPHALIC - Eye Exam Eye Exam: Normal appearance Pupil Exam: NORMAL ACCOMODATION - ENT Exam ENT Exam: Normal Exam - Neck Exam Neck exam: Normal Inspection - Respiratory Exam Respiratory Exam: Decreased Breath Sounds - Cardiovascular Exam Cardiovascular Exam: REGULAR RHYTHM - GI/Abdominal Exam GI & Abdominal Exam: Normal Bowel Sounds - Exam Exam: NORMAL INSPECTION - Extremities Exam Extremities exam: tenderness - Back Exam Back exam: paraspinal tenderness - Neurological Exam Neurological exam: Oriented x3 - Psychiatric Exam Psychiatric exam: Normal Affect - Skin Skin Exam: Dry Discharge Plan - Follow Up Plan Condition: GUARDED Disposition: HOME/ ROUTINE Instructions: Heart Healthy Diet, Heart Failure, Adult (DC), Peripheral Vascular (Arterial) Disease (DC), Urinary Tract Infection, Adult (DC), Sepsis, Adult (DC) Additional Instructions: Follow up with PMD in 1 week Please resume all home medications Referrals: Daquan Brown MD [Staff Provider] - Jason Diaz Jr., MD [Staff Provider] -
== END 2018-08-24 13:50 | disposition home or self-care (01) | DRG 333 ==
LOC: C.ER 17:52 → C.9E 20:28 → C.6T 20:46 → C.9E 20:54 → C.6T 21:33
PROVIDERS: ADMIT Internal Medicine; ATTEND Internal Medicine
PROC: 0DP Gastrointestinal System, Removal (ICD-10-PCS; 2018-08-22)
PROC: 0DBQ0ZZ Excision of Anus, Open Approach (ICD-10-PCS; principal; 2018-08-22 07:45)
DX: K60.3 Anal fistula (principal); N39.0 Urinary tract infection, site not specified; B36.9 Superficial mycosis, unspecified; E78.00 Pure hypercholesterolemia, unspecified; G47.30 Sleep apnea, unspecified; I12.9 Hypertensive chronic kidney disease with stage 1 through stage 4 chronic kidney disease, or unspecified chronic kidney disease; I73.9 Peripheral vascular disease, unspecified; J45.909 Unspecified asthma, uncomplicated; K21.9 Gastro-esophageal reflux disease without esophagitis; M10.9 Gout, unspecified; M19.90 Unspecified osteoarthritis, unspecified site; N18.9 Chronic kidney disease, unspecified; Z86.711 Personal history of pulmonary embolism; Z86.72 Personal history of thrombophlebitis